=== PATIENT | female | born 1965 | race Two or more races ===

== ENCOUNTER 2024-05-06 18:17 | Emergency (ER) | payer MEDICAID, SELFPAY ==
[2024-05-06 18:24] VITALS: BMI 35.4
[2024-05-06 18:25] VITALS: BP 140/89; PULSE 93; RESP 16; TEMP 37.2; O2SAT 97
--- NOTE | 2024-05-06 18:29 | XR_ITS ---
Examination: CT abdomen and pelvis without contrast. Coronal 3-D reconstructions. Sagittal 2-D reconstructions. Date and time of exam:May 06, 20242012 hrs. Comparison March 25, 2024 Indications: Upper abdominal pain nausea vomiting beginning one week ago CTDI: vol (mGy): 11.6 DLP: (mGycm): 617 Technique: Axial images of the abdomen have been obtained, 3 mm slice thickness Intravenous contrast material has not been administered. Low dose protocols were performed. One or more of the following dose reduction techniques were used; automated exposure control, adjustment of the mA and/or KV according to patient size, use of iterative reconstruction technique. 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
--- NOTE | 2024-05-06 18:29 | XR_ITS ---
Examination: Abdomen sonogram, Limited Date and time of exam: May 06, 2024 1905 hrs. Indications: Right upper abdominal tenderness and vomiting beginning one week ago Technique: Real-time ayala scale transabdominal sonographic images of the upper abdomen obtained. Findings: Negative for gallstones Normal gallbladder wall Normal common bile duct 0.3 cm Pancreatic head 2.4 cm Liver 14.3 cm fatty infiltration no focal liver lesions Normal hepatopedal portal venous flow Patent IVC Impression: Normal gallbladder Liver normal size with fatty infiltration
[2024-05-06 18:33] VITALS: PULSE 92; O2SAT 97
--- NOTE | 2024-05-06 19:28 | XR_ITS ---
Examination: Transvaginal ultrasound of the pelvis, complete Technique: Transvaginal sonographic images pelvis performed using ayala scale imaging Exam date and time: May 06, 2024 1945 hrs. Indications: Right upper abdominal pain with nausea beginning this week Findings: Patient refused transvaginal examination Impression: Patient refused transvaginal examination.
[2024-05-06 19:40] LABS: Basophils # (Auto) 0.1 Thou/mm3 (0.0-0.2); Basophils % (Auto) 1 % (0-2.5); Eosinophils # (Auto) 0.2 Thou/mm3 (0.0-0.5); Eosinophils % (Auto) 3 % (0-10); Hematocrit 42.6 % (36.0-46.0); Hemoglobin 14.5 g/dL (12.0-16.0); Immature Granulocytes % (Auto) 0 % (0-0); Immature Granulocytes Auto 0.03 Thou/mm3 (0.00-0.00); Lymphocytes # (Auto) 1.5 Thou/mm3 (1.0-4.8); Lymphocytes % (Auto) 21 % (10-50); Mean Corpuscular Hemoglobin 28.8 pg (25.0-35.0); Mean Corpuscular Volume 85 fL (80-100); Monocytes # (Auto) 1.1 Thou/mm3 (0.0-0.8); Monocytes % (Auto) 15 % (0-12); Neutrophils # (Auto) 4.4 Thou/mm3 (1.8-7.7); Neutrophils % (Auto) 60 % (37-80); Nucleated Red Blood Cell % 0 /100 WBC (0); Platelet Count 280 Thou/mm3 (140-440); RDW Standard Deviation 52.3 fL (36.4-46.3); Red Blood Count 5.04 Miln/mm3 (4.00-5.20); White Blood Count 7.4 Thou/mm3 (3.6-11.0)
--- NOTE | 2024-05-06 19:58 | XR_ITS ---
Examination: Pelvic ultrasound, transabdominal, complete Technique: Transabdominal ultrasound of the pelvis performed using grayscale imaging Date and time of exam: May 06, 2024 0745 hours INDICATIONS: Right upper abdominal pain nausea beginning one week ago FINDINGS: No diagnostic visualization uterus Hyperechoic mass noted avascular in the region of uterus 6.0 x 6.2 x 6.4 cm Ovaries obscured by bowel gas IMPRESSION: Nondiagnostic study Recommend transvaginal pelvic sonography follow-up
[2024-05-06 20:04] LABS: Alanine Aminotransferase 13 U/L (10-49); Albumin, Serum 3.7 gm/dL (3.5-5.0); Albumin/Globulin Ratio 1.1 (1.2-2.2); Alkaline Phosphatase 59 U/L (46-116); Amylase 46 U/L (30-118); Anion Gap 18 (7-16); Aspartate Amino Transferase 38 U/L (0-34); BUN/Creatinine Ratio 6 Ratio (12-20); Bilirubin,Total 1.2 mg/dL (0.3-1.2); Blood Urea Nitrogen < 5 mg/dL (9-23); Calcium 10.2 mg/dL (8.3-10.6); Calcium (Corrected) 10.4 mg/dL (8.5-10.1); Carbon Dioxide 19.3 mMol/L (20.0-31.0); Chloride 100 mMol/L (98-107); Creatinine (Component) 0.8 mg/dL (0.6-1.3); Estimated Creatinine Clearance 87.1 mL/min (>60); Globulin 3.4 gm/dL (2.3-3.5); Glucose 103 mg/dL (74-106); Lipase 65 U/L (12-53); Magnesium 1.8 mg/dL (1.6-2.6); Osmolality,Calculated 271 (275-295); Sodium 137 mMol/L (136-145); Total Protein 7.1 gm/dL (5.7-8.2); eGFR > 60 See Note
[2024-05-06 20:06] LABS: Potassium 2.7 mMol/L (3.4-5.1)
[2024-05-06] MEDS: SODIUM CHLORIDE 0.9% 1000 ML 1,000 ML 999 ML IV (20:42)
[2024-05-06] MEDS: MORPHINE SULF INJ 10 MG/ML VIAL 4 MG IVP (20:43)
[2024-05-06] MEDS: ONDANSETRON INJ 2 MG/ML INJ 2 ML 4 MG IV (20:44)
[2024-05-06 21:07] LABS: Collection Type, Urine Clean Catch
[2024-05-06 21:21] LABS: Bacteria,Urine 3+; Bilirubin,Urine 1+ (Negative); Blood,Urine Trace (Negative); Clarity,Urine Turbid (Clear/Hazy); Color,Urine Yellow (Lt Yel-Yel); Glucose, Urine Trace (Negative); Hyaline Casts,Urine 2 /hpf (0-1); Ketones,Urine 4+ (Negative); Leukocyte Esterase,Urine Positive (Negative); Nitrite,Urine Negative (Negative); Protein,Urine 2+ (Neg - Trace); RBC,Urine 5 /hpf (0-3); Specific Gravity,Urine 1.023 (1.001-1.035); Squamous Epithelial Cell,Urine 34 /hpf (0-5); WBC,Urine 38 /hpf (0-5)
--- NOTE | 2024-05-06 22:22 | PD.EDNV ---
Nausea/Vomit./Diarrhea-RME/HPI General Chief complaint: Nausea/Vomiting/Diarrhea Stated complaint: NAUSEA Time Seen by Provider: 05/06/24 18:25 Arrival date/time: 05/06/24 18:17 RME / HPI RME / HPI Narrative: This section includes all my notes and documentations, including HPI, PE, and ED course. Gael Patterson MD HPI: 59-year-old female here to be evaluated with about a week history of nausea and vomiting. She reports no abdominal pain. No fever or chills. No urinary symptoms. No other complaints. ROS: Gastrointestinal: negative except as documented in HPI. Genitourinary: negative except as documented in HPI. Musculoskeletal: negative except as documented in HPI. Skin: negative except as documented in HPI. Neurological: negative except as documented in HPI. Physical Exam: General: Alert and oriented. No acute distress when remaining still. Eyes: Conjunctivae and lids clear. ENT: No nasal congestion. Neck: Supple. Heart: RRR. Lungs: No respiratory distress. Good air movement. No rhonchi, wheezing, rales. Abdomen: Soft with mild epigastric tenderness. Normal bowel sounds. No distension. No rebound or guarding. Back: No CVA tenderness. Skin: Warm and dry. Neuro: Alert and oriented X 3. I reviewed EMS notes. I reviewed all diagnostic test results. My review of the abdominal CT report is no acute findings. My review of the GB ultrasound report is no acute findings. Blood tests and urine tests are unremarkable, except for hypokalemia and UTI. At this point, diagnoses include chronic nausea and vomiting and UTI and hypokalemia. Treatment here included IV fluid and Zofran and morphine and oral KCl and Rocephin. Recommended a trial of treatment at home and more outpatient workup. Based on my best medical judgment, made decision no further evaluation or treatment indicated at this time. Patient understands and agrees to the discharge instructions customized and printed, see below. Discharge instructions from Dr. Patterson: 1. After evaluation, you have UTI (see attached handout).? 2. Take cefdinir to kill the germs causing the infection.? Increase oral fluid to flush it out.? Maintain clear urine.? If dark or yellow, increase oral fluid. 3. Zofran for nausea/vomiting.? And Tylenol with codeine for severe pain. 4. See a private doctor on 05/10/2024 for recheck.? Ask to review all test results and official radiology reports, to make sure you receive all necessary follow-ups and monitoring, including final urine culture results and potassium level. To make sure there is no serious intra-abdominal condition (with your chronic nausea and vomiting), ask for help with more investigation not available here in the ER. Such as EGD or scoping the stomach, colonoscopy or scoping the colon, and referral to see computer systems consultant. 5. Seek immediate medical care with worsening, fever, or with any concerns. Gael Patterson MD Related Data Home Medications ?Medication ?Instructions ?Recorded ?Confirmed hydrochlorothiazide 25 mg tablet 25 mg PO QAM 03/25/24 04/18/24 levothyroxine 125 mcg tablet 125 mcg PO QDAY 03/25/24 04/18/24 lovastatin 40 mg tablet 40 mg PO QDAY 03/25/24 04/18/24 Previous Rx's ?Medication ?Instructions ?Recorded alcohol swabs (Alcohol Prep Pads) See Rx Instructions .Route 03/31/24 .COMPLEX #200 ea erythromycin ethylsuccinate 400 400 mg (5 mL) PO TID #100 mL 03/31/24 mg/5 mL oral powder for suspension insulin glargine 100 unit/mL (3 5 unit (0.05 mL) subcut QDAY #15 mL 03/31/24 mL) subcutaneous pen, sensor lancets 28 gauge #100 ea 03/31/24 blood sugar diagnostic (FreeStyle #100 ea 04/02/24 Lite Strips) blood-glucose meter (FreeStyle #1 ea 04/02/24 Lite Meter kit) lancets 28 gauge (FreeStyle #100 ea 04/02/24 Lancets) pen needle, diabetic 29 gauge x #100 ea 04/02/24 1/2 (Ultra-Thin II Insulin Pen [place]) ondansetron 4 mg disintegrating 4 mg PO Q6H nausea / vomiting #60 04/04/24 tablet tabs scopolamine base 1 mg over 3 days 1 patch transdermal Q3D PRN nausea 04/09/24 transdermal patch #4 ea metoclopramide HCl 5 mg/5 mL oral 10 mg (10 mL) PO Q6H PRN nausea 04/11/24 solution and vomiting #473 mL sucralfate 100 mg/mL oral 10 ml PO BID #300 mL 04/11/24 suspension (Carafate) promethazine 25 mg rectal 25 mg ID Q6H PRN nausea and 04/18/24 suppository vomiting #12 ea acetaminophen 300 mg-codeine 30 mg 2 tab PO TID PRN pain #20 tabs 05/06/24 tablet cefdinir 300 mg capsule 300 mg PO BID #14 caps 05/06/24 ondansetron 4 mg disintegrating 4 mg PO TID PRN nausea and 05/06/24 tablet vomiting 5 days #10 tabs Allergies Allergy/AdvReac Type Severity Reaction Status Date / Time No Known Allergies Allergy Verified 04/18/24 09:52 Course Quality Measures none Orders Category Date Time Status Bedside COVID-19 Antigen Test NOW Care 05/06/24 18:28 Active Bedside Influenza A&B Antigen Test NOW Care 05/06/24 18:28 Completed Saline [Insert IV] NOW Care 05/06/24 18:28 Active Straight [In and Out Catheter] X1 Care 05/06/24 18:[address] abdomen pelvis wo con Stat Exams 05/06/24 18:29 Completed US gall bladder Stat Exams 05/06/24 18:29 Completed US pelvic complete Stat Exams 05/06/24 19:58 Taken US transvaginal Stat Exams 05/06/24 19:28 Taken Amylase Stat Lab 05/06/24 19:00 Completed CBC Stat Lab 05/06/24 19:00 Completed CMP [Comprehensive Metabolic Panel] Stat Lab 05/06/24 19:00 Completed Lipase Stat Lab 05/06/24 19:00 Completed Magnesium Stat Lab 05/06/24 19:00 Completed UA [Urinalysis] Stat Lab 05/06/24 20:33 Completed Urine Culture Stat Lab 05/06/24 22:17 Ordered KCL 10% Liq UDC 15 ML Med 05/06/24 21:06 Discontinued 40 meq PO X1 ONE Morphine Inj Med 05/06/24 18:28 Discontinued 4 mg IVP X1 ONE Ondansetron Inj [Zofran Inj] Med 05/06/24 18:28 Discontinued 4 mg IV X1 ONE Sodium Chloride 0.9% 1000 ml [Ns] 1,000 ml Med 05/06/24 18:28 Discontinued IV 999 mls/hr cefTRIAXone/D5w 1gm IV premix [Rocephin/D5w 1gm IV Med 05/06/24 22:14 Active premix] 50 ml IV X1 Vital Signs Vital signs: Vital Signs Temperature 99.0 F 05/06/24 18:25 Pulse Rate 93 05/06/24 18:25 Respiratory Rate 16 05/06/24 18:25 Blood Pressure 140/89 H 05/06/24 18:25 Pulse Oximetry (%) 97 05/06/24 18:25 Oxygen Delivery Method Room Air 05/06/24 18:25 Nausea/Vomiting/Diarrhea Patient data External records reviewed:: [facility] previous records Clinical information provided by:: patient and EMS Social determinants that could affect healthcare access:: none Patient has the following chronic illnesses:: See chart How is presenting disease/condition affected by chronic disease/condition?: exacerbated by Evaluation data The following diagnostics were reviewed and interpreted by me:: lab results and radiology exam(s) Lab and/or radiology exams considered but not ordered:: None Interpretation Summary: Chronic nausea and vomiting and UTI and hypokalemia Medications / Prescriptions Medications / Prescriptions considered but not ordered:: None Medication administrations:: Medication Administration History Ceftriaxone Sodium/Dextrose (Rocephin/D5w 1gm Iv Premix) 50 mls @ 100 mls/hr IV X1 ONE Stop: 05/06/24 22:43 Discontinued Medications Sodium Chloride (Ns) 1,000 mls @ 999 mls/hr IV .Q1H1M ONE Stop: 05/06/24 19:28 Last Admin: 05/06/24 20:42 Dose: 999 mls/hr Documented By: EE Morphine Sulfate (Morphine Sulf Inj 10 Mg/Ml Vial) 4 mg IVP X1 ONE Stop: 05/06/24 18:29 Last Admin: 05/06/24 20:43 Dose: 4 mg Documented By: EE Ondansetron HCl (Ondansetron Inj 2 Mg/Ml Inj 2 Ml) 4 mg IV X1 ONE; Protocol Stop: 05/06/24 18:29 Last Admin: 05/06/24 20:44 Dose: 4 mg Documented By: EE Potassium Chloride (Potassium Chloride 10% 20 Meq/15 Ml Udc) 40 meq PO X1 ONE Stop: 05/06/24 21:07 See chart Consultations Consultation(s) initiated? (list below): No Diagnosis Nausea Differential Diagnosis: traveler's diarrhea, food poisoning, gastroenteritis, drug-induced nausea and vomiting and dehydration Most likely diagnosis given after review of the tests above:: UTI and hypokalemia Admission Indicated Admission indicated?: not indicated Explain why admission is indicated or not indicated:: Admission criteria not met Admission Request Was there a request for admission?: No Disposition Plan Disposition Plan: Discharge Discharge Attestation Discharge Attestation: The patient and all family members were given an opportunity to ask questions and understood the discharge instructions. Discharge instructions specifically effects, indications for sooner follow up or return to the emergency department, and the expected course of current diagnosis. Patient condition: Stable Discharge Plan Plan Patient Disposition: HOME (Self Care) Prescriptions/Referrals Prescriptions/Med Rec: New acetaminophen-codeine 300-30 mg tablet 2 tab PO TID MDD 6 PRN (Reason: pain) Qty: 20 0RF ondansetron 4 mg tablet,disintegrating 4 mg PO TID PRN (Reason: nausea and vomiting) 5 Days Qty: 10 0RF cefdinir 300 mg capsule 300 mg PO BID Qty: 14 0RF No Action promethazine 25 mg suppository 25 mg ID Q6H PRN (Reason: nausea and vomiting) Qty: 12 2RF ondansetron 4 mg tablet,disintegrating 4 mg PO Q6H Qty: 60 5RF (DME) blood-glucose meter [FreeStyle Lite Meter] Kit See Rx Instructions .Route Qty: 1 0RF Rx Instructions: As directed (DME) lancets [FreeStyle Lancets] 28 gauge misc See Rx Instructions .Route Qty: 100 0RF Rx Instructions: As directed (DME) FreeStyle Lite Strips Strip See Rx Instructions .Route Qty: 100 0RF Rx Instructions: As directed (DME) pen needle, diabetic [Ultra-Thin II Ins Pen [place]] 29 gauge x 1/2 needle See Rx Instructions .Route Qty: 100 0RF Rx Instructions: As directed scopolamine base 1 mg over 3 days patch 3 day 1 patch transdermal Q3D PRN (Reason: nausea) Qty: 4 0RF Rx Instructions: May causes sedation, Avoid driving or other activities requiring alertness. lovastatin 40 mg Tablet 40 mg PO QDAY levothyroxine 125 mcg Tablet 125 mcg PO QDAY hydrochlorothiazide 25 mg Tablet 25 mg PO QAM erythromycin ethylsuccinate 400 mg/5 mL suspension for reconstitution 400 mg PO TID Qty: 100 0RF insulin glargine 100 unit/mL (3 mL) insulin pen, sensor 5 unit subcut QDAY Qty: 15 0RF alcohol swabs [Alcohol Prep Pads] Pads, Medicated See Rx Instructions .ROUTE .COMPLEX Qty: 200 0RF Rx Instructions: Apply before injections or glucose check. (DME) lancets 28 gauge misc See Rx Instructions .Route Qty: 100 0RF Rx Instructions: As directed metoclopramide HCl 5 mg/5 mL solution 10 mg PO Q6H PRN (Reason: nausea and vomiting) Qty: 473 0RF sucralfate [Carafate] 100 mg/mL suspension 10 ml PO BID Qty: 300 0RF Referrals: No Primary/Family,Physician [Primary Care Provider] - In 1 week Problem List Clinical Impression: UTI (urinary tract infection), Nausea and vomiting Patient/Caregiver Discharge Instructions Discharge Activity: activity as tolerated Education Materials: Urinary Tract Infections in Women, ED Vomiting (Adult) Additional Instructions: Discharge instructions from Dr. Patterson: 1. After evaluation, you have UTI (see attached handout).? 2. Take cefdinir to kill the germs causing the infection.? Increase oral fluid to flush it out.? Maintain clear urine.? If dark or yellow, increase oral fluid. 3. Zofran for nausea/vomiting.? And Tylenol with codeine for severe pain. 4. See a private doctor on 05/10/2024 for recheck.? Ask to review all test results and official radiology reports, to make sure you receive all necessary follow-ups and monitoring, including final urine culture results and potassium level. To make sure there is no serious intra-abdominal condition (with your chronic nausea and vomiting), ask for help with more investigation not available here in the ER. Such as EGD or scoping the stomach, colonoscopy or scoping the colon, and referral to see computer systems consultant. 5. Seek immediate medical care with worsening, fever, or with any concerns. Print Language: [place] Stand Alone Forms: [employer]ie Award Info., Patient Portal Info Letter
[2024-05-06] MEDS: cefTRIAXone/D5w 1gm IV premix 50 ML IV (22:29)
--- NOTE | 2024-05-06 22:33 | PC.NURSE ---
Attempted PO Potassium, Patient emesis x1 when drinking medication. Provider notified.
[2024-05-06] MEDS: METOCLOPRAMIDE INJ 5 MG/ML VIAL 2 ML 10 MG IVP (22:42)
[2024-05-06 23:42] LABS: Potassium 2.9 mMol/L (3.4-5.1)
[2024-05-06] MEDS: LORazepam 2 MG/ML VIAL 0.5 MG IVP (23:57)
[2024-05-06] MEDS: POTASSIUM CHLORIDE 10% 20 MEQ/15 ML UDC 40 MEQ PO (23:59)
== END 2024-05-07 01:03 | disposition home or self-care (01) ==
PROVIDERS: Emergency Provider Emergency Medicine
DX: N39.0 Urinary tract infection, site not specified (principal); E87.6 Hypokalemia; R11.2 Nausea with vomiting, unspecified
CPT/HCPCS: 36415; 74176; 76705; 76830; 76856; 80053; 81001; 82150; 83690; 83735; 84132; 85025; 87086; 87400; 87811; 96361; 96365; 96375; 99284; J0696; J2060; J2270; J2405; J2765; J7030; A9270

== ENCOUNTER 2024-05-14 16:46 | Inpatient (IN) | payer MEDICAID, SELFPAY ==
[2024-05-14 16:47] VITALS: BP 122/81; PULSE 84; RESP 18; TEMP 36.6; O2SAT 99
[2024-05-14 17:06] VITALS: O2SAT 98
--- NOTE | 2024-05-14 17:31 | PD.EDRME ---
Rapid Medical Screening Exam RME Arrival date/time: 05/14/24 16:46 59-year-old female presents emergency department complains of nausea vomiting abdominal pain Chief Complaint: Nausea/Vomiting/Diarrhea Vital signs: Vital Signs Temperature 97.9 F 05/14/24 16:47 Pulse Rate 84 05/14/24 16:47 Respiratory Rate 18 05/14/24 16:47 Blood Pressure 122/81 05/14/24 16:47 Pulse Oximetry (%) 99 05/14/24 16:47 Oxygen Delivery Method Room Air 05/14/24 16:47
--- NOTE | 2024-05-14 17:44 | PC.NURSE ---
FSBS 110
[2024-05-14 17:59] LABS: Base Excess, Venous -5 (-3-3); O2 Saturation, Venous 76 % (96-97); PCO2, Venous 21 mmHg (36-56); PO2, Venous 35 mmHg (15-58); pH, Venous 7.49 (7.33-7.66)
[2024-05-14 18:04] LABS: Basophils # (Auto) 0.1 Thou/mm3 (0.0-0.2); Basophils % (Auto) 1 % (0-2.5); Eosinophils # (Auto) 0.3 Thou/mm3 (0.0-0.5); Eosinophils % (Auto) 4 % (0-10); Hemoglobin 14.1 g/dL (12.0-16.0); Immature Granulocytes % (Auto) 0 % (0-0); Immature Granulocytes Auto 0.03 Thou/mm3 (0.00-0.00); Lymphocytes # (Auto) 1.4 Thou/mm3 (1.0-4.8); Lymphocytes % (Auto) 21 % (10-50); Mean Corpuscular HGB Conc 33.6 g/dl (31.0-37.0); Mean Corpuscular Hemoglobin 28.7 pg (25.0-35.0); Mean Corpuscular Volume 86 fL (80-100); Monocytes # (Auto) 1.1 Thou/mm3 (0.0-0.8); Monocytes % (Auto) 17 % (0-12); Neutrophils # (Auto) 3.9 Thou/mm3 (1.8-7.7); Neutrophils % (Auto) 58 % (37-80); Nucleated Red Blood Cell % 0 /100 WBC (0); Platelet Count 284 Thou/mm3 (140-440); RDW Standard Deviation 53.2 fL (36.4-46.3); Red Blood Count 4.91 Miln/mm3 (4.00-5.20); White Blood Count 6.8 Thou/mm3 (3.6-11.0)
[2024-05-14 18:06] LABS: Beta Hydroxybutyrate 4.6 mmol/L (<0.6)
[2024-05-14 18:24] LABS: Glucose Estimated Average 148 mg/dL (80-131); Hemoglobin A1C 6.8 % Hgb (4.8-6.0)
[2024-05-14 18:38] LABS: Alanine Aminotransferase 14 U/L (10-49); Albumin, Serum 3.9 gm/dL (3.5-5.0); Albumin/Globulin Ratio 1.2 (1.2-2.2); Alkaline Phosphatase 56 U/L (46-116); Anion Gap 18 (7-16); Aspartate Amino Transferase 32 U/L (0-34); BUN/Creatinine Ratio 6 Ratio (12-20); Blood Urea Nitrogen 5 mg/dL (9-23); Calcium 10.1 mg/dL (8.3-10.6); Calcium (Corrected) 10.2 mg/dL (8.5-10.1); Carbon Dioxide 18.2 mMol/L (20.0-31.0); Chloride 99 mMol/L (98-107); Creatinine (Component) 0.9 mg/dL (0.6-1.3); Globulin 3.2 gm/dL (2.3-3.5); Glucose 104 mg/dL (74-106); Lipase 71 U/L (12-53); Osmolality,Calculated 267 (275-295); Sodium 135 mMol/L (136-145); Total Protein 7.1 gm/dL (5.7-8.2); eGFR > 60 See Note
[2024-05-14 18:41] LABS: Potassium 2.5 mMol/L (3.4-5.1)
[2024-05-14 19:01] VITALS: BP 155/99; PULSE 97; RESP 18; TEMP 36.7; O2SAT 98
[2024-05-14 19:05] VITALS: BMI 35.4
[2024-05-14] MEDS: SODIUM CHLORIDE 0.9% 1000 ML 1,000 ML 999 ML IV (19:17)
[2024-05-14] MEDS: ONDANSETRON INJ 2 MG/ML INJ 2 ML 4 MG IV (19:17)
--- NOTE | 2024-05-14 20:15 | PD.EDNV ---
Nausea/Vomit./Diarrhea-RME/HPI General Chief complaint: Nausea/Vomiting/Diarrhea Stated complaint: N/V Time Seen by Provider: 05/14/24 19:27 Arrival date/time: 05/14/24 16:46 RME / HPI RME / HPI Narrative: 05/14/24 16:46 59-year-old female presents emergency department complains of nausea vomiting abdominal pain. 59-year-old female with history of diabetes, gastritis coming in with dysuria, nausea, and inability to tolerate liquids. The patient states that since she left the hospital she has not been able to keep things down. The patient states that she is having some right flank pain. Related Data Home Medications ?Medication ?Instructions ?Recorded ?Confirmed hydrochlorothiazide 25 mg tablet 25 mg PO QAM 03/25/24 04/18/24 levothyroxine 125 mcg tablet 125 mcg PO QDAY 03/25/24 04/18/24 lovastatin 40 mg tablet 40 mg PO QDAY 03/25/24 04/18/24 Previous Rx's ?Medication ?Instructions ?Recorded alcohol swabs (Alcohol Prep Pads) See Rx Instructions .Route 03/31/24 .COMPLEX #200 ea erythromycin ethylsuccinate 400 400 mg (5 mL) PO TID #100 mL 03/31/24 mg/5 mL oral powder for suspension insulin glargine 100 unit/mL (3 5 unit (0.05 mL) subcut QDAY #15 mL 03/31/24 mL) subcutaneous pen, sensor lancets 28 gauge #100 ea 03/31/24 blood sugar diagnostic (FreeStyle #100 ea 04/02/24 Lite Strips) blood-glucose meter (FreeStyle #1 ea 04/02/24 Lite Meter kit) lancets 28 gauge (FreeStyle #100 ea 04/02/24 Lancets) pen needle, diabetic 29 gauge x #100 ea 04/02/24 1/2 (Ultra-Thin II Insulin Pen [place]) ondansetron 4 mg disintegrating 4 mg PO Q6H nausea / vomiting #60 04/04/24 tablet tabs scopolamine base 1 mg over 3 days 1 patch transdermal Q3D PRN nausea 04/09/24 transdermal patch #4 ea metoclopramide HCl 5 mg/5 mL oral 10 mg (10 mL) PO Q6H PRN nausea 10/31/24 solution and vomiting #473 mL sucralfate 100 mg/mL oral 10 ml PO BID #300 mL 04/11/24 suspension (Carafate) promethazine 25 mg rectal 25 mg MT Q6H PRN nausea and 04/18/24 suppository vomiting #12 ea acetaminophen 300 mg-codeine 30 mg 2 tab PO TID PRN pain #20 tabs 05/06/24 tablet cefdinir 300 mg capsule 300 mg PO BID #14 caps 05/06/24 potassium chloride 20 mEq 20 meq PO QDAY #7 tabs 05/07/24 tablet,extended release Allergies Allergy/AdvReac Type Severity Reaction Status Date / Time No Known Allergies Allergy Verified 05/14/24 17:08 Course Orders Category Date Time Status Bedside Blood Glucose NOW Care 05/14/24 17:30 Active Bedside COVID-19 Antigen Test NOW Care 05/14/24 17:30 Active Bedside Influenza A&B Antigen Test NOW Care 05/14/24 17:30 Completed A1C [Glycohemoglobin w (eAG)] Stat Lab 05/14/24 17:25 Completed Beta Hydroxybutyrate Stat Lab 05/14/24 17:25 Completed CBC Stat Lab 05/14/24 17:25 Completed Comprehensive Metabolic Panel Stat Lab 05/14/24 17:25 Completed HCG Qualitative,Urine Stat Lab 05/14/24 17:30 Ordered Lipase Stat Lab 05/14/24 17:25 Completed UA, C/S IF [Urinalysis, C/S if Indicated] Stat Lab 05/14/24 17:30 Ordered VBG [Venous Blood Gas] Stat Lab 05/14/24 17:25 Completed Ondansetron Inj [Zofran Inj] Med 05/14/24 17:31 Discontinued 4 mg IV X1 ONE Sodium Chloride 0.9% 1000 ml [Ns] 1,000 ml Med 05/14/24 17:31 Discontinued IV 999 mls/hr Sodium Chloride 0.9% 1000 ml [Ns] 1,710 ml Med 05/14/24 20:14 Active IV 1,710 mls/hr Vital Signs Vital signs: Vital Signs Temperature 97.9 F 05/14/24 16:47 Pulse Rate 84 05/14/24 16:47 Respiratory Rate 18 05/14/24 16:47 Blood Pressure 122/81 05/14/24 16:47 Pulse Oximetry (%) 99 05/14/24 16:47 Oxygen Delivery Method Room Air 05/14/24 16:47 Nausea/Vomiting/Diarrhea MDM Narrative MDM Narrative:: Differential diagnosis includes pancreatitis, gastritis, acute renal failure, GI bleed, gastroparesis, dehydration. 59-year-old female coming into the emergency department with dehydration and low potassium likely secondary to dry heaving, patient is not in DKA however she does have elevated beta hydroxybutyrate. Medications / Prescriptions Medication administrations:: Medication Administration History Sodium Chloride (Ns) 1,710 mls @ 1,710 mls/hr 30 ml/kg infuse over 60 min (1710 ml) IV .Q1H ONE Stop: 05/14/24 21:13 Discontinued Medications Sodium Chloride (Ns) 1,000 mls @ 999 mls/hr IV .Q1H1M ONE Stop: 05/14/24 18:31 Last Admin: 05/14/24 19:17 Dose: 999 mls/hr Documented By: KERRY Ondansetron HCl (Ondansetron Inj 2 Mg/Ml Inj 2 Ml) 4 mg IV X1 ONE; Protocol Stop: 05/14/24 17:32 Last Admin: 05/14/24 19:17 Dose: 4 mg Documented By: KERRY Discharge Plan Prescriptions/Referrals Prescriptions/Med Rec: No Action promethazine 25 mg suppository 25 mg MT Q6H PRN (Reason: nausea and vomiting) Qty: 12 2RF ondansetron 4 mg tablet,disintegrating 4 mg PO Q6H Qty: 60 5RF (DME) blood-glucose meter [FreeStyle Lite Meter] Kit See Rx Instructions .Route Qty: 1 0RF Rx Instructions: As directed (DME) lancets [FreeStyle Lancets] 28 gauge misc See Rx Instructions .Route Qty: 100 0RF Rx Instructions: As directed (DME) FreeStyle Lite Strips Strip See Rx Instructions .Route Qty: 100 0RF Rx Instructions: As directed (DME) pen needle, diabetic [Ultra-Thin II Ins Pen [place]] 29 gauge x 1/2 needle See Rx Instructions .Route Qty: 100 0RF Rx Instructions: As directed scopolamine base 1 mg over 3 days patch 3 day 1 patch transdermal Q3D PRN (Reason: nausea) Qty: 4 0RF Rx Instructions: May causes sedation, Avoid driving or other activities requiring alertness. lovastatin 40 mg Tablet 40 mg PO QDAY levothyroxine 125 mcg Tablet 125 mcg PO QDAY hydrochlorothiazide 25 mg Tablet 25 mg PO QAM erythromycin ethylsuccinate 400 mg/5 mL suspension for reconstitution 400 mg PO TID Qty: 100 0RF insulin glargine 100 unit/mL (3 mL) insulin pen, sensor 5 unit subcut QDAY Qty: 15 0RF alcohol swabs [Alcohol Prep Pads] Pads, Medicated See Rx Instructions .ROUTE .COMPLEX Qty: 200 0RF Rx Instructions: Apply before injections or glucose check. (DME) lancets 28 gauge misc See Rx Instructions .Route Qty: 100 0RF Rx Instructions: As directed metoclopramide HCl 5 mg/5 mL solution 10 mg PO Q6H PRN (Reason: nausea and vomiting) Qty: 473 0RF sucralfate [Carafate] 100 mg/mL suspension 10 ml PO BID Qty: 300 0RF acetaminophen-codeine 300-30 mg tablet 2 tab PO TID MDD 6 PRN (Reason: pain) Qty: 20 0RF cefdinir 300 mg capsule 300 mg PO BID Qty: 14 0RF potassium chloride 20 mEq tablet extended release 20 meq PO QDAY Qty: 7 0RF Referrals: No Primary/Family,Physician [Primary Care Provider] - In 1 week Patient/Caregiver Discharge Instructions Print Language: [place] Citizen
--- NOTE | 2024-05-14 20:19 | EDNOTE_ITS ---
Nausea/Vomit./Diarrhea-RME/HPI General Chief complaint: Nausea/Vomiting/Diarrhea Stated complaint: N/V Time Seen by Provider: 05/14/24 19:27 Arrival date/time: 05/14/24 16:46 Limitations: no limitations RME / HPI RME / HPI Narrative: DR. CHOI MAIN ED EVALUATION: 59 year old female presents to the Emergency Department with complaints of dysuria, nausea, and inability to tolerate liquids. The patient states that since she left the hospital she has not been able to keep things down. The patient states that she is having some right flank pain. PMHx: Gastritis, hypertension, hypercholesterolemia, diabetes, hypothyroidism, and arthritis. Social Hx: No tobacco, alcohol, or substance use. Related Data Home Medications ?Medication ?Instructions ?Recorded ?Confirmed hydrochlorothiazide 25 mg tablet 25 mg PO QAM 03/25/24 04/18/24 levothyroxine 125 mcg tablet 125 mcg PO QDAY 03/25/24 04/18/24 lovastatin 40 mg tablet 40 mg PO QDAY 03/25/24 04/18/24 Previous Rx's ?Medication ?Instructions ?Recorded alcohol swabs (Alcohol Prep Pads) See Rx Instructions .Route 03/31/24 .COMPLEX #200 ea erythromycin ethylsuccinate 400 400 mg (5 mL) PO TID #100 mL 03/31/24 mg/5 mL oral powder for suspension insulin glargine 100 unit/mL (3 5 unit (0.05 mL) subcut QDAY #15 mL 03/31/24 mL) subcutaneous pen, sensor lancets 28 gauge #100 ea 03/31/24 blood sugar diagnostic (FreeStyle #100 ea 04/02/24 Lite Strips) blood-glucose meter (FreeStyle #1 ea 04/02/24 Lite Meter kit) lancets 28 gauge (FreeStyle #100 ea 04/02/24 Lancets) pen needle, diabetic 29 gauge x #100 ea 04/02/24 1/2 (Ultra-Thin II Insulin Pen Distant) ondansetron 4 mg disintegrating 4 mg PO Q6H nausea / vomiting #60 04/04/24 tablet tabs scopolamine base 1 mg over 3 days 1 patch transdermal Q3D PRN nausea 04/09/24 transdermal patch #4 ea metoclopramide HCl 5 mg/5 mL oral 10 mg (10 mL) PO Q6H PRN nausea 04/11/24 solution and vomiting #473 mL sucralfate 100 mg/mL oral 10 ml PO BID #300 mL 04/11/24 suspension (Carafate) promethazine 25 mg rectal 25 mg [place] Q6H PRN nausea and 04/18/24 suppository vomiting #12 ea acetaminophen 300 mg-codeine 30 mg 2 tab PO TID PRN pain #20 tabs 05/06/24 tablet cefdinir 300 mg capsule 300 mg PO BID #14 caps 05/06/24 potassium chloride 20 mEq 20 meq PO QDAY #7 tabs 05/07/24 tablet,extended release Allergies Allergy/AdvReac Type Severity Reaction Status Date / Time No Known Allergies Allergy Verified 05/14/24 17:08 Review of Systems Review of Systems Systems Reviewed: All systems reviewed, normal except as documented Narrative Review of Systems: GEN: No fever, no chills, no weight loss, + inability to tolerate liquids EYES: No discharge, no visual changes, no pain HEENT: No ear pain, no congestion, no sore throat PULM: No shortness of breath, no cough, no congestion CV: No chest pain, no dyspnea on exertion, no palpitations GI: + nausea, no vomiting, no diarrhea, + right flank pain, no constipation : + dysuria MUSC/SKEL: No joint pain, no back pain SKIN: No rash PSYCH: No hallucinations, no depression HEME/LYMPH: No easy bleeding or bruising tendencies NEURO: No weakness, no headache Past Medical History Past Medical History CARDIAC: Positive Hypercholesterolemia and Hypertension MUSCULOSKELETAL: Positive Rheumatoid Arthritis ENDOCRINE: Positive Diabetes Mellitus Type 2 and Hypothyroidism HEMATOLOGIC: Positive Anemia Social History SMOKING STATUS: Never smoker SUBSTANCE USE: does not use ALCOHOL: Never ED Exam General Limitations: Present no limitations General appearance: Present alert and in no apparent distress Head Head exam: Present atraumatic, normocephalic and normal inspection Eye Eye exam: Present normal appearance, PERRL and EOMI ENT ENT exam: Present normal exam, normal oropharynx and mucous membranes moist Neck Neck exam: Present normal inspection, full ROM and trachea midline Chest Chest inspection: Present normal inspection and symmetric chest wall rise Respiratory Respiratory exam: Present normal lung sounds bilaterally Cardiovascular Cardiovascular exam: Present regular rate, normal rhythm and normal heart sounds Abdominal Exam Abdominal exam: Present soft and normal bowel sounds Extremities Exam Extremities exam: Present normal inspection and full ROM Back Exam Back exam: Present normal inspection and full ROM Neurological Exam Neurological exam: Present alert, oriented X3 and CN II-XII intact Psychiatric Psychiatric exam: Present normal affect and normal mood Skin Skin exam: Present warm, dry, intact and normal color Course Quality Measures none Orders Category Date Time Status Bedside Blood Glucose NOW Care 05/14/24 17:30 Active Bedside COVID-19 Antigen Test NOW Care 05/14/24 17:30 Active Bedside Influenza A&B Antigen Test NOW Care 05/14/24 17:30 Completed Straight [In and Out Catheter] X1 Care 05/14/24 22:11 Completed A1C [Glycohemoglobin w (eAG)] Stat Lab 05/14/24 17:25 Completed Beta Hydroxybutyrate Stat Lab 05/14/24 17:25 Completed CBC Stat Lab 05/14/24 17:25 Completed Comprehensive Metabolic Panel Stat Lab 05/14/24 17:25 Completed HCG Qualitative,Urine Stat Lab 05/14/24 22:26 Completed Lipase Stat Lab 05/14/24 17:25 Completed UA, C/S IF [Urinalysis, C/S if Indicated] Stat Lab 05/14/24 22:26 Completed Urinalysis Stat Lab 05/14/24 22:11 Ordered Urine Culture Stat Lab 05/14/24 22:26 Received VBG [Venous Blood Gas] Stat Lab 05/14/24 17:25 Completed Ondansetron Inj [Zofran Inj] Med 05/14/24 17:31 Discontinued 4 mg IV X1 ONE POTASSIUM CHL 10 mEq IVPB [Kcl Ivpb] Med 05/14/24 20:21 Discontinued 10 meq in 100 ml IV Q1H Sodium Chloride 0.9% 1000 ml [Ns] 1,000 ml Med 05/14/24 17:31 Discontinued IV 999 mls/hr Sodium Chloride 0.9% 1000 ml [Ns] 1,710 ml Med 05/14/24 20:14 Discontinued IV 1,710 mls/hr Vital Signs Vital signs: Vital Signs Temperature 97.9 F 05/14/24 16:47 Pulse Rate 84 05/14/24 16:47 Respiratory Rate 18 05/14/24 16:47 Blood Pressure 122/81 05/14/24 16:47 Pulse Oximetry (%) 99 05/14/24 16:47 Oxygen Delivery Method Room Air 05/14/24 16:47 Nausea/Vomiting/Diarrhea MDM Narrative MDM Narrative:: Differential diagnosis includes pancreatitis, gastritis, acute renal failure, GI bleed, gastroparesis, dehydration. 59-year-old female coming into the emergency department with dehydration and low potassium likely secondary to dry heaving, patient is not in DKA however she does have elevated beta hydroxybutyrate. Carol Ann Cherry am scribing for and in the presence of Dr. Choi. Patient data External records reviewed:: [facility] previous records (Reviewed last ED visit dated 05/07/24, discharged with the following: Nausea and vomiting.) Clinical information provided by:: patient Social determinants that could affect healthcare access:: none Patient has the following chronic illnesses:: Gastritis, hypertension, hypercholesterolemia, diabetes, hypothyroidism, and arthritis. How is presenting disease/condition affected by chronic disease/condition?: exacerbated by Evaluation data The following diagnostics were reviewed and interpreted by me:: lab results Lab and/or radiology exams considered but not ordered:: none Interpretation Summary: See above under MDM narrative. Medications / Prescriptions Medications / Prescriptions considered but not ordered:: none Medication administrations:: Medication Administration History Dextrose (Dextrose 50%-Water Inj 50 Ml Syringe) 25 ml IV Q15MIN PRN PRN Reason: BG 50-70 responsive npo pt Stop: 06/14/24 05:01 Dextrose (Dextrose 50%-Water Inj 50 Ml Syringe) 50 ml IV Q15MIN PRN PRN Reason: BG <50 OR BG <70 & pt unresponsive Stop: 06/14/24 05:01 Glucagon (Glucagon Inj 1 Mg Vial) 1 mg IM Q15MIN PRN PRN Reason: BG <70, and no IV access Heparin Sodium (Porcine) (Heparin Sod Inj 5000 Unit/Ml Vial) 5,000 unit SC Q12HR MEGAN Stop: 05/29/24 08:59 Sodium Chloride (Ns) 1,000 mls @ 100 mls/hr IV .Q10H ONE Stop: 05/15/24 11:29 Last Admin: 05/15/24 01:52 Dose: 100 mls/hr Documented By: KERRY Magnesium Sulfate (Magnesium Sulfate Ivpb) 4 gm in 50 mls @ 12.5 mls/hr IV X1 ONE Stop: 05/15/24 06:57 Last Admin: 05/15/24 03:12 Dose: 12.5 mls/hr Documented By: KERRY Insulin Human Regular (Insulin Hum Regular 1 Unit/0.01 Ml (Per Unit)) 0 unit SC Q6HR MEGAN; Protocol Stop: 06/14/24 05:59 Metoclopramide HCl (Metoclopramide Inj 5 Mg/Ml Vial 2 Ml) 10 mg IVP Q8HR MEGAN; Protocol Stop: 06/14/24 05:59 Metoclopramide HCl (Metoclopramide Inj 5 Mg/Ml Vial 2 Ml) 5 mg IVP Q8HR PRN; Protocol PRN Reason: Nausea or vomiting Last Admin: 05/15/24 01:57 Dose: 5 mg Documented By: KERRY Pantoprazole Sodium (Pantoprazole Inj 40 Mg Vial) 40 mg IVP Q12HR MEGAN Stop: 06/14/24 08:59 Polyethylene Glycol (Polyethylene Glycol 17 Gm Packet) 17 gm PO DAILY MEGAN Stop: 06/14/24 08:59 Discontinued Medications Sodium Chloride (Ns) 1,000 mls @ 999 mls/hr IV .Q1H1M ONE Stop: 05/14/24 18:31 Last Infusion: 05/14/24 20:22 Dose: Infused Documented By: Admin: 05/14/24 19:17 Dose: 999 mls/hr Documented By: KERRY Sodium Chloride (Ns) 1,710 mls @ 1,710 mls/hr 30 ml/kg infuse over 60 min (1710 ml) IV .Q1H ONE Stop: 05/14/24 21:13 Last Infusion: 05/14/24 21:20 Dose: Infused Documented By: Admin: 05/14/24 20:20 Dose: 1,710 mls/hr Documented By: KERRY Potassium Chloride (Kcl Ivpb) 10 meq in 100 mls @ 100 mls/hr IV Q1H MEGAN Stop: 05/14/24 22:20 Last Infusion: 05/14/24 22:28 Dose: Infused Documented By: Admin: 05/14/24 21:24 Dose: 100 mls/hr Documented By: Infusion: 05/14/24 21:24 Dose: Infused Documented By: Admin: 05/14/24 20:29 Dose: 100 mls/hr Documented By: KERRY Ondansetron HCl (Ondansetron Inj 2 Mg/Ml Inj 2 Ml) 4 mg IV X1 ONE; Protocol Stop: 05/14/24 17:32 Last Admin: 05/14/24 19:17 Dose: 4 mg Documented By: KERRY see above Consultations Consultation(s) initiated? (list below): Yes Consultation #1 (Physician, Specialty, Details): Discussed case with [Dr. Hernandez, attending Dr. Ch] from Hospitalist service regarding admission. Discussed patients ED course, exam findings, labs, and radiology results. The Hospitalist [agrees] to accept the patient for admission. Diagnosis Nausea Differential Diagnosis: other (pancreatitis, gastritis, acute renal failure, GI bleed, gastroparesis, dehydration) Most likely diagnosis given after review of the tests above:: see below Admission Indicated Admission indicated?: indicated Admission Request Was there a request for admission?: Yes Admission Attestation Admission request attestation: Discussed case with [] from Hospitalist service regarding admission. Discussed patients ED course, exam findings, labs, and radiology results. The Hospitalist [agrees,declines] to accept the patient for admission. Disposition Plan Disposition Plan: Admit Discharge Plan Plan Patient Disposition: Admit Acute Care w/in Hospital Patient condition on transfer: Stable Problem List Clinical Impression: Dehydration, Hypokalemia, Nausea & vomiting, Intractable nausea and vomiting
[2024-05-14] MEDS: SODIUM CHLORIDE 0.9% 1000 ML 1,710 ML 1710 ML IV (20:20)
[2024-05-14] MEDS: POTASSIUM CHL 10 mEq IVPB 10 MEQ/100 ML BAG 100 MEQ IV ×2 (20:29→21:24)
[2024-05-14 22:05] VITALS: BP 130/85; PULSE 90; RESP 18; TEMP 36.4; O2SAT 100
[2024-05-14 22:47] LABS: Collection Type, Urine Clean Catch
[2024-05-14 23:00] LABS: Bacteria,Urine Rare; Bilirubin,Urine Negative (Negative); Blood,Urine Negative (Negative); Clarity,Urine Turbid (Clear/Hazy); Color,Urine Lt-Yellow (Lt Yel-Yel); Culture Indicated,Urine Contaminated; Glucose, Urine Negative (Negative); Hyaline Casts,Urine < 1 /hpf (0-1); Ketones,Urine 3+ (Negative); Leukocyte Esterase,Urine Positive (Negative); Nitrite,Urine Negative (Negative); Protein,Urine 1+ (Neg - Trace); RBC,Urine 1 /hpf (0-3); Specific Gravity,Urine 1.011 (1.001-1.035); Squamous Epithelial Cell,Urine 13 /hpf (0-5); Urobilinogen,Urine Negative mg/dL (0.0-1.0); WBC,Urine 12 /hpf (0-5)
[2024-05-14 23:02] LABS: HCG Qualitative,Urine Positive
[2024-05-15] VITALS (9 sets, daily range): BP systolic 113–139; BP diastolic 66–80; PULSE 77–94; RESP 14–97; TEMP 36.1–36.9; O2SAT 95–99; BMI 35.4
--- NOTE | 2024-05-15 01:27 | EKG_ITS ---
[facility] Test Date: 2024-05-15 Pat Name: KIM MCCAULEY Department: Room: - Gender: Female Hedis Review Nurse: : 1965 Requested By: Kenny Maciel Order Number: [id number] Reading MD: Kenny Maciel Measurements Intervals [place] Rate: 84 P: 51 DE: 189 QRS: 9 QRSD: 88 T: 85 QT: 395 QTc: 468 Interpretive Statements SINUS RHYTHM ST DEVIATION AND MODERATE T-WAVE ABNORMALITY, CONSIDER ANTEROLATERAL ISCHEMIA [-0.1+ mV T WAVE IN V3-V6] ST DEVIATION AND MODERATE T-WAVE ABNORMALITY, CONSIDER INFERIOR ISCHEMIA [-0.1+ mV T WAVE IN II/aVF] Compared to ECG 03/28/2024 06:20:03 T-wave abnormality now present Possible ischemia now present /store/S0/[id number]/ecg/[id number].pdf
[2024-05-15] MEDS: SODIUM CHLORIDE 0.9% 1000 ML 1,000 ML 100 ML IV (01:52)
[2024-05-15] MEDS: METOCLOPRAMIDE INJ 5 MG/ML VIAL 2 ML IVP ×2 (01:57→18:06)
[2024-05-15 02:37] LABS: HCG,Qualitative Serum Negative
--- NOTE | 2024-05-15 02:38 | ESHP_ITS ---
Documentation for date of: 05/15/24 [facility] History of Present Illness History of present illness: The patient is a 59-year-old female with a past medical history of hypertension, diabetes, hypothyroidism and hyperlipidemia who presented to the ED on 05/14/2024 with abdominal pain, nausea and vomiting that has persisted over the last 2 months. Per the patient, in early February she was diagnosed with diabetes at which time she was started on Jardiance and metformin. Prior to this, she had been having some episodes of vomiting and nausea which she reports to have increased after she started taking this medications. In early March, she presented to the ED and was admitted for starvation ketosis, taken to the ICU for possible insulin drip, however patient was euglycemic and never required. Patient was subsequently downgraded back to the floors after which she had a gastric emptying study done, however the investigation was not completed because the patient vomited contrast when he went to her. GI Dr. Reardon was consulted and EGD was done which showed grade B reflux esophagitis and esophagitis as confirmed by pathology. The patient was then discharged on erythromycin and Reglan, but reports that she has been unable to take either medications as vomiting has persisted. According to her, nothing has particularly changed since discharge and she has had persistence nausea and vomiting still. She denies diarrhea but endorses some constipation and states that she has not had a bowel movement for the last 5 days. ED course: In the ED, patient was afebrile, normotensive. Labs showed WBC 6.8 Hgb 14.1 PLT 284 NA 130 5K2.5 CL 99 bicarb 18.2 anion gap 18 BUN 5 CR 0.9 glucose 104 calcium 10.2 lipase 71 beta hydroxybutyrate 4.6 UA showed 1+ protein 3+ ketones 12 WBC, urine hCG positive. VBG showed a pCO2 of 21 with a base excess of -5. EKG showed sinus rhythm with QTc of 468. The patient received 2.7 L of IV fluids, Zofran and potassium and has been admitted for management of intractable nausea and vomiting/starvation ketosis. Review of Systems Review of Systems Narrative Review of Systems: GENERAL: Denies fevers/chills or diaphoresis. HEENT: Denies headache or visual/hearing changes. Denies nasal discharge. NEURO: Denies unusual weakness or difficulty speaking. CARDIO: Denies chest pain or palpitations. PULM: Denies SOB, coughing, or wheezing. GI: Admits abdominal pain, nausea and vomiting. Reports not having bowel movements in 5 days. URO: Denies burning/itching/pain/urinary changes. MSK/EXT/SKIN: Denies joint/skeletal/muscle pain, issues/changes in upper or lower extremities, itchiness, or superficial pain. PSYCH: Cooperative, pleasant mood & affect. 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 Eyes open, symmetrical, & clear CARDIO: No chest pain on palpation. Heart RRR, no obvious murmurs PULM: No noted coughing/dyspnea. Lungs CTA B/L, no R/W/R GI: Abdomen soft, nondistended, diffusely tender to palpation, worse in epigastric and right quadrant. BSx4 URO/HOLE PUNCHER STRAP:: No further abnormalities noted. SKIN/MSK/EXT: No wounds/rashes/edema/amputations, no pain on palpation. Pedal pulses present B/L Results: Labs 05/14/24 17:25 05/14/24 17:25 Labs: Short CBC 05/14/24 Range/Units 17:25 WBC 6.8 (3.6-11.0) Thou/mm3 Hgb 14.1 (12.0-16.0) g/dL Hct 42.0 (36.0-46.0) % Plt Count 284 (140-440) Thou/mm3 BMP 05/14/24 17:25 Sodium 135 L Potassium 2.5 L* Chloride 99 Carbon Dioxide 18.2 L BUN 5 L Creatinine 0.9 Glucose 104 Calcium 10.1 Liver Function 05/14/24 Range/Units 17:25 Total Bilirubin 1.0 (0.3-1.2) mg/dL AST 32 (0-34) U/L ALT 14 (10-49) U/L Alkaline Phosphatase 56 (46-116) U/L Albumin 3.9 (3.5-5.0) gm/dL Urine 05/14/24 Range/Units 22:26 Urine Color Lt-Yellow (Lt Yel-Yel) Urine Clarity Turbid A (Clear/Hazy) Urine pH 6.0 (5.0-7.0) Ur Specific [place] 1.011 (1.001-1.035) Urine Protein 1+ A (Neg - Trace) Urine Glucose (UA) Negative (Negative) ABG Interpretation ABG results: 05/14/24 17:25 VBG pH 7.49 VBG pCO2 21 L VBG pO2 35 VBG Base Excess -5 L Quality Measures Quality Measures none Medications Home Medications and Allergies Home Medications ?Medication ?Instructions ?Recorded ?Confirmed ?Type hydrochlorothiazide 25 mg tablet 25 mg PO QAM 03/25/24 04/18/24 History levothyroxine 125 mcg tablet 125 mcg PO QDAY 03/25/24 04/18/24 History lovastatin 40 mg tablet 40 mg PO QDAY 03/25/24 04/18/24 History Allergies Allergy/AdvReac Type Severity Reaction Status Date / Time No Known Allergies Allergy Verified 05/14/24 17:08 Visit Medications Heparin Sodium (Porcine) (Heparin Sod Inj 5000 Unit/Ml Vial) 5,000 unit SC Q12HR MEGAN Stop: 05/29/24 08:59 Sodium Chloride (Ns) 1,000 mls @ 100 mls/hr IV .Q10H ONE Stop: 05/15/24 11:29 Last Admin: 05/15/24 01:52 Dose: 100 mls/hr Metoclopramide HCl (Metoclopramide Inj 5 Mg/Ml Vial 2 Ml) 10 mg IVP Q8HR MEGAN; Protocol Stop: 06/14/24 05:59 Metoclopramide HCl (Metoclopramide Inj 5 Mg/Ml Vial 2 Ml) 5 mg IVP Q8HR PRN; Protocol PRN Reason: Nausea or vomiting Last Admin: 05/15/24 01:57 Dose: 5 mg Pantoprazole Sodium (Pantoprazole Inj 40 Mg Vial) 40 mg IVP Q12HR MEGAN Stop: 06/14/24 08:59 Discontinued Medications Sodium Chloride (Ns) 1,000 mls @ 999 mls/hr IV .Q1H1M ONE Stop: 05/14/24 18:31 Last Infusion: 05/14/24 20:22 Dose: Infused Sodium Chloride (Ns) 1,710 mls @ 1,710 mls/hr 30 ml/kg infuse over 60 min (1710 ml) IV .Q1H ONE Stop: 05/14/24 21:13 Last Infusion: 05/14/24 21:20 Dose: Infused Potassium Chloride (Kcl Ivpb) 10 meq in 100 mls @ 100 mls/hr IV Q1H MEGAN Stop: 05/14/24 22:20 Last Infusion: 05/14/24 22:28 Dose: Infused Ondansetron HCl (Ondansetron Inj 2 Mg/Ml Inj 2 Ml) 4 mg IV X1 ONE; Protocol Stop: 05/14/24 17:32 Last Admin: 05/14/24 19:17 Dose: 4 mg Assessment & Plan Assessment Summary: The patient is a 59-year-old female with a past medical history of hypertension, diabetes, hypothyroidism and hyperlipidemia who presented to the ED on 05/14/2024 with abdominal pain, nausea and vomiting that has persisted over the last 2 months. The patient has been admitted for management of intractable nausea and vomiting, starvation ketosis. #Intractable nausea and vomiting #Anion gap metabolic acidosis #Starvation ketosis The patient presented with a 2-month history of nausea and vomiting, states that she has been unable to keep food or drinks as well as p.o. meds down. She was admitted about a month ago with similar symptoms. At that time, gastric emptying scan was attempted but could not be completed as patient vomited contrast. GI Dr. Reardon was consulted and patient had an upper endoscopy done which showed esophagitis and gastritis, confirmed with pathology-no malignancy. Patient was discharged on erythromycin with that she has been unable to take any of her p.o. meds as she still had persistent nausea and vomiting. ED, labs are significant for hypokalemia, metabolic acidosis with anion gap of 18 glucose 104. Patient received approximately 2.7 L of NS in the ED. Plan: -Admit to med telemetry -Maintenance IV fluid NS at 100 cc/h -Nausea and vomiting management with Reglan -N.p.o. for now -Protonix 40 mg twice daily #Hypokalemia Admitting potassium-2.5, magnesium-1.7 IV potassium 20 mEq given in the ED so far Plan: -Replete potassium and magnesium #History of diabetes Patient has a history of diabetes, recently diagnosed in February. A1c on last admission in March was 10.3. Patient reports that she has not been taking any medications including insulin and her blood sugars have been within control, highest value has been 146. A1c today-6.8% Plan: -Monitor blood sugar closely and commence ISS if needed -Keep blood sugar within goal 1 40-1 80 -Hypoglycemic protocols in place #History of hypothyroidism The patient takes levothyroxine 125 mcg daily. Due to nausea and vomiting she has not taken consistently over the past 2 months. Plan: -TSH -Restart medication once able to tolerate p.o. Health maintenance: Dispo: MedTele Diet: NPO GI: Pantoprazole DVT: SC Heparin [place]: None Lines: Peripheral Med Rec: Pending, f/u PT: Code: Full Case was discussed with attending physician, Dr Scotty Maciel MD PGY-1 Attending Provider Attestation/Addendum 59-year-old female was seen in the ER. The patient was evaluated in the ER for persistent nausea and vomiting. She has minimal abdominal pain. She mentioned weight loss of about 25 pounds over the last few months. She had recent EGD showing gastritis. Nuclear gastric emptying study was not completed at that time. Patient is on oral medication for diabetes mellitus. She has elevated beta hydroxybutyric acid tonight. Her CO2 is 18. She has elevated anion gap but her blood glucose levels are not elevated. Patient was given IV fluid boluses in the ER and was subsequently admitted.
[2024-05-15 02:47] LABS: Magnesium 1.7 mg/dL (1.6-2.6)
[2024-05-15] MEDS: Magnesium Sulfate 4 GM Ivpb 4 GM/50 ML BAG IV (03:12)
[2024-05-15 05:04] LABS: Basophils # (Auto) 0.1 Thou/mm3 (0.0-0.2); Basophils % (Auto) 1 % (0-2.5); Eosinophils # (Auto) 0.3 Thou/mm3 (0.0-0.5); Eosinophils % (Auto) 6 % (0-10); Hematocrit 33.9 % (36.0-46.0); Hemoglobin 11.5 g/dL (12.0-16.0); Immature Granulocytes % (Auto) 0 % (0-0); Immature Granulocytes Auto 0.01 Thou/mm3 (0.00-0.00); Lymphocytes # (Auto) 1.4 Thou/mm3 (1.0-4.8); Lymphocytes % (Auto) 25 % (10-50); Mean Corpuscular HGB Conc 33.9 g/dl (31.0-37.0); Mean Corpuscular Volume 85 fL (80-100); Monocytes # (Auto) 0.9 Thou/mm3 (0.0-0.8); Monocytes % (Auto) 16 % (0-12); Neutrophils # (Auto) 2.9 Thou/mm3 (1.8-7.7); Neutrophils % (Auto) 52 % (37-80); Nucleated Red Blood Cell % 0 /100 WBC (0); Platelet Count 243 Thou/mm3 (140-440); RDW Standard Deviation 53.8 fL (36.4-46.3); Red Blood Count 3.97 Miln/mm3 (4.00-5.20); White Blood Count 5.6 Thou/mm3 (3.6-11.0)
[2024-05-15 05:40] LABS: Alanine Aminotransferase 11 U/L (10-49); Anion Gap 14 (7-16); Aspartate Amino Transferase 29 U/L (0-34); BUN/Creatinine Ratio 8 Ratio (12-20); Bilirubin,Total 0.8 mg/dL (0.3-1.2); Blood Urea Nitrogen < 5 mg/dL (9-23); Carbon Dioxide 18.2 mMol/L (20.0-31.0); Chloride 107 mMol/L (98-107); Cholesterol 183 mg/dL (132-200); Creatinine (Component) 0.6 mg/dL (0.6-1.3); Estimated Creatinine Clearance 116.1 mL/min (>60); Glucose 93 mg/dL (74-106); HDL Cholesterol 36 mg/dL (40-60); LDL Cholesterol,Calculated 126 mg/dL (0-130); Magnesium 2.2 mg/dL (1.6-2.6); Osmolality,Calculated 274 (275-295); Sodium 139 mMol/L (136-145); Total Protein 5.4 gm/dL (5.7-8.2); Triglycerides 107 mg/dL (30-150); eGFR > 60 See Note
[2024-05-15 05:41] LABS: Albumin/Globulin Ratio 1.3 (1.2-2.2); Alkaline Phosphatase 41 U/L (46-116); Calcium 8.5 mg/dL (8.3-10.6); Calcium (Corrected) 9.3 mg/dL (8.5-10.1); Cardiac Risk Estimate 5.1 RATIO (3.7-5.6); Globulin 2.4 gm/dL (2.3-3.5); Thyroid Stimulating Hormone 126.18 uIU/mL (0.55-4.78)
[2024-05-15 05:52] LABS: Potassium 2.5 mMol/L (3.4-5.1)
--- NOTE | 2024-05-15 06:39 | PC.NURSE ---
Pt refused to take the PO Potassium. Informed Dr. Hernandez that the pt is refusing to take the PO meds.
[2024-05-15] MEDS: METOCLOPRAMIDE INJ 5 MG/ML VIAL 2 ML 10 MG IVP ×3 (06:44→21:31)
[2024-05-15] MEDS: POTASSIUM CHL 10 mEq IVPB 10 MEQ/100 ML BAG 100 MEQ IV ×6 (07:21→21:37)
[2024-05-15] MEDS: PANTOPRAZOLE INJ 40 MG VIAL IVP ×2 (08:49→21:29)
[2024-05-15] MEDS: HEPARIN SOD INJ 5000 UNIT/ML VIAL SC ×2 (08:50→21:39)
--- NOTE | 2024-05-15 09:29 | PC.SS ---
Follow up note: Pt is on IV fluids and not tolerating feeds.
[2024-05-15 10:47] LABS: Albumin, Serum 3.3 gm/dL (3.5-5.0); Anion Gap 15 (7-16); BUN/Creatinine Ratio 7 Ratio (12-20); Blood Urea Nitrogen < 5 mg/dL (9-23); Calcium 8.6 mg/dL (8.3-10.6); Calcium (Corrected) 9.2 mg/dL (8.5-10.1); Carbon Dioxide 18.5 mMol/L (20.0-31.0); Chloride 106 mMol/L (98-107); Creatinine (Component) 0.7 mg/dL (0.6-1.3); Estimated Creatinine Clearance 97.6 mL/min (>60); Glucose 92 mg/dL (74-106); Osmolality,Calculated 274 (275-295); Phosphorous 1.9 mg/dL (2.4-5.1); Sodium 139 mMol/L (136-145); eGFR > 60 See Note
[2024-05-15 10:51] LABS: Potassium 2.5 mMol/L (3.4-5.1)
[2024-05-15 11:00] LABS: Free T4 (Free Thyroxine) 0.47 ng/dL (0.89-1.76)
[2024-05-15] MEDS: ERYTHROMYCIN INJ 250 MG in SODIUM CHLORIDE 0.9% 100 ML 100 MG IV ×3 (11:08→23:58)
--- NOTE | 2024-05-15 12:14 | PC.SS ---
SS met with patient regarding her d/c plan. Pt is alert/oriented. Pt was admitted for alone. Pt confirmed demographic and contact information is correct on facesheet. Pt resides with alone. Pt ambulates using a 4 wheel with seat, rollator walker. Pt is ok with all ADLs. Patient?s pharmacy of choice is [facility] on [address]. Pt named her cousin, Mendy Rodriguez, phone# [phone] medical decision maker if she is unable. Patient?s choice is to return home upon d/c. Pt states she is diabetic, has glucometer, and test strips. Pt states she uses insulin injections for her diabetes. Pt follows up with [facility] with Dr. Dill. Pt possibly will require transportation home. D/C plan: Return home Next of Kin: Mendy Rodriguez, cousin, phone# [phone] PCP: [facility] Address: Correct on facesheet
[2024-05-15] MEDS: LEVOTHYROXINE INJ 100 mCg VIAL 50 MCG IV (13:38)
[2024-05-15 14:24] LABS: Anion Gap 13 (7-16); BUN/Creatinine Ratio 8 Ratio (12-20); Beta HCG,Quantitative 10 mIU/mL (<5.0); Blood Urea Nitrogen < 5 mg/dL (9-23); Calcium 8.5 mg/dL (8.3-10.6); Carbon Dioxide 18.1 mMol/L (20.0-31.0); Chloride 108 mMol/L (98-107); Creatinine (Component) 0.6 mg/dL (0.6-1.3); Estimated Creatinine Clearance 113.9 mL/min (>60); Glucose 100 mg/dL (74-106); Osmolality,Calculated 274 (275-295); Potassium 2.8 mMol/L (3.4-5.1); Sodium 139 mMol/L (136-145); eGFR > 60 See Note
[2024-05-15 14:51] LABS: Carcinoembryonic Antigen 2.6 ng/mL (0.0-5.0)
--- NOTE | 2024-05-15 15:25 | ESPR_ITS ---
<Statement entered by Иван Boland MD - 05/15/24 16:53> Patient was seen and examined at bedside. Patient reported that she has been n.p.o. she did not had any vomiting. She was agreeable on starting some clear liquid diet for now. We DC'd also her IV fluids at this time. Patient potassium was 2.5, she was getting 40 mill equivalents of IV potassium. Repeat BMP showed improvement of potassium to 2.8. Will continue replating potassium we will add another 40 mill equivalent of potassium IV. Because the patient bicarb are low Patient was found to be acidotic for that reason we repeated VBG, we also ordered urine electrolytes and urine creatinine, and we also ordered beta-hydroxybutyrate to rule out starvation ketosis as her urine ketones is +3. We consulted the substation supervisor Dr. Reardon and she recommended to continue with the erythromycin and Reglan regimen and he will come to assess the patient later on today. We also noticed that the patient has abdominal CT scan was done without contrast on 06 May and showed possible dermoid cyst in the pelvic area. We ordered for the patient tumor markers specifically beta-hCG, CA 25, alpha-fetoprotein, CEA. Will follow-up on the results. Because the patient was not able to tolerate oral feeds we switched her levothyroxine medications to IV Synthyroid 50 mcg IV. - Patient's plan and care discussed with my attending, Dr. Elizabeth Boland MD Internal Medicine PGY-2 Documentation for date of: 05/15/24 Subjective Subjective Interval history: Patient examined at bedside today. Is having experiencing taking in food feels a bit nauseous but is requesting to drink water. She has been vomiting for the past 10 days, has lost weight, has not been able to take her oral medications, vomiting has not been bloody. These are similar symptoms to which she had about 2 months ago when she was admitted in the hospital. No other complaints at this time Exam Vital Signs Temp Pulse Resp BP Pulse Ox O2 Del Method 97.1 F 83 18 129/75 97 Room Air 05/15/24 12:00 05/15/24 12:19 05/15/24 12:19 05/15/24 12:00 05/15/24 12:00 05/15/24 12:00 Narrative Exam General: AAOx3, NAD, HEENT: Dry mucous membranes, conjunctiva clear, EOMI, PERRLA, Cardiovascular: S1, S2, radial pulses +2 bilat, RRR Pulmonary: CTAB bilat no cough, no wheezing GI: Slight tenderness to light palpitation, no guarding, rigidity, rebound tenderness or distension, bowel sounds present Extremities: No presence of trace or pitting edema in lower extremities bilaterally, dorsalis pedis pulses +2 bilaterally Neuro: AAOx3, no focal motor or sensory deficits in the UE or LE bilat Psych: Good judgement, thought and behavior. Cooperative Objective Labs 05/16/24 04:52 05/16/24 04:52 Labs: Laboratory Results - last 24 hr 05/14/24 05/14/24 05/15/24 17:25 22:26 01:49 WBC 6.8 RBC 4.91 Hgb 14.1 Hct 42.0 MCV 86 MCH 28.7 MCHC 33.6 RDW Std Deviation 53.2 H Plt Count 284 Neut % (Auto) 58 Lymph % (Auto) 21 [place] % (Auto) 17 H Eos % (Auto) 4 Baso % (Auto) 1 Neut # (Auto) 3.9 Lymph # (Auto) 1.4 [place] # (Auto) 1.1 H Eos # (Auto) 0.3 Baso # (Auto) 0.1 Immature Gran # (Auto) 0.03 H Absolute Nucleated RBC 0.00 Immature Gran % 0 Nucleated RBC % 0 VBG pH 7.49 VBG pCO2 21 L VBG pO2 35 VBG O2 Sat (Rhys) 76 L VBG Base Excess -5 L Sodium 135 L Potassium 2.5 L* Chloride 99 Carbon Dioxide 18.2 L Anion Gap 18 H BUN 5 L Creatinine 0.9 Estim Creat Clear Calc Not Performed. eGFR > 60 BUN/Creatinine Ratio 6 L Glucose [address] Glu mg/dL 148 H Hemoglobin A1c 6.8 H Calculated Osmolality 267 L Calcium 10.1 Corrected Calcium 10.2 H Phosphorus 2.0 L Magnesium 1.7 Total Bilirubin 1.0 AST 32 ALT 14 Alkaline Phosphatase 56 Total Protein 7.1 Albumin 3.9 Globulin 3.2 Albumin/Globulin Ratio 1.2 Triglycerides Cholesterol LDL Cholesterol, Calc HDL Cholesterol Cholesterol/HDL Ratio Lipase 71 H Tumor Marker AFP Carcinoembryonic Ag CA 125 Antigen Beta-Hydroxybutyrate/Acetoacetate 4.6 H TSH Free T4 HCG, Qual Negative Beta HCG, Quant Ur Collection Type Clean Catch Urine Color Lt-Yellow Urine Clarity Turbid A Urine pH 6.0 Ur Specific [place] 1.011 Urine Protein 1+ A Urine Glucose (UA) Negative Urine Ketones 3+ A Urine Blood Negative Urine Nitrite Negative Urine Bilirubin Negative Urine Urobilinogen (Auto) Negative Ur Leukocyte Esterase Positive Urine RBC 1 Urine WBC 12 H Ur Squamous Epith Cells 13 H Urine Bacteria Rare Hyaline Casts < 1 Ur Culture Indicated? Contaminated Urine HCG, Qual Positive 05/15/24 05/15/24 05/15/24 04:25 10:00 13:42 WBC 5.6 RBC 3.97 L Hgb 11.5 L D Hct 33.9 L MCV 85 MCH 29.0 MCHC 33.9 RDW Std Deviation 53.8 H Plt Count 243 D Neut % (Auto) 52 Lymph % (Auto) 25 [place] % (Auto) 16 H Eos % (Auto) 6 Baso % (Auto) 1 Neut # (Auto) 2.9 Lymph # (Auto) 1.4 [place] # (Auto) 0.9 H Eos # (Auto) 0.3 Baso # (Auto) 0.1 Immature Gran # (Auto) 0.01 H Absolute Nucleated RBC 0.00 Immature Gran % 0 Nucleated RBC % 0 VBG pH VBG pCO2 VBG pO2 VBG O2 Sat (Rhys) VBG Base Excess Sodium 139 139 139 Potassium 2.5 L* 2.5 L* 2.8 L Chloride 107 106 108 H Carbon Dioxide 18.2 L 18.5 L 18.1 L Anion Gap 14 15 13 BUN < 5 L < 5 L < 5 L Creatinine 0.6 0.7 0.6 Estim Creat Clear Calc 116.1 97.6 113.9 eGFR > 60 > 60 > 60 BUN/Creatinine Ratio 8 L 7 L 8 L Glucose [address] Glu mg/dL Hemoglobin A1c Calculated Osmolality 274 L 274 L 274 L Calcium 8.5 D 8.6 8.5 Corrected Calcium 9.3 9.2 Phosphorus 1.9 L Magnesium 2.2 Total Bilirubin 0.8 AST 29 ALT 11 Alkaline Phosphatase 41 L D Total Protein 5.4 L Albumin 3.0 L D 3.3 L Globulin 2.4 Albumin/Globulin Ratio 1.3 Triglycerides 107 Cholesterol 183 LDL Cholesterol, Calc 126 HDL Cholesterol 36 L Cholesterol/HDL Ratio 5.1 Lipase Tumor Marker AFP 3.00 Carcinoembryonic Ag 2.6 CA 125 Antigen 10.0 Beta-Hydroxybutyrate/Acetoacetate TSH 126.18 H* Free T4 0.47 L HCG, Qual Beta HCG, Quant 10 Ur Collection Type Urine Color Urine Clarity Urine pH Ur Specific [place] Urine Protein Urine Glucose (UA) Urine Ketones Urine Blood Urine Nitrite Urine Bilirubin Urine Urobilinogen (Auto) Ur Leukocyte Esterase Urine RBC Urine WBC Ur Squamous Epith Cells Urine Bacteria Hyaline Casts Ur Culture Indicated? Urine HCG, Qual ABG Interpretation ABG results: 05/14/24 17:25 VBG pH 7.49 VBG pCO2 21 L VBG pO2 35 VBG Base Excess -5 L Quality Measures Quality Measures none Assessment & Plan Assessment Current Active Medications: Generic Name Dose Route Start Last Admin Trade Name Freq PRN Reason Stop Dose Admin Dextrose 25 ml 05/15/24 05:02 Dextrose 50%-Water Inj 50 Ml Syringe IV 06/14/24 05:01 Q15MIN PRN BG 50-70 responsive npo pt Dextrose 50 ml 05/15/24 05:02 Dextrose 50%-Water Inj 50 Ml Syringe IV 06/14/24 05:01 Q15MIN PRN BG <50 OR BG <70 & pt unresponsive Glucagon 1 mg 05/15/24 05:02 Glucagon Inj 1 Mg Vial IM Q15MIN PRN BG <70, and no IV access Heparin Sodium (Porcine) 5,000 unit 05/15/24 09:00 05/15/24 08:50 Heparin Sod Inj 5000 Unit/Ml Vial SC 05/29/24 08:59 5,000 unit Q12HR MEGAN Administration Erythromycin Lactobionate 250 100 mls @ 100 mls/hr 05/15/24 09:00 05/15/24 11:08 mg/ Sodium Chloride IV 05/22/24 08:59 100 mls/hr Q6HR MEGAN Administration Insulin Human Regular 0 unit 05/15/24 06:00 05/15/24 13:00 Insulin Hum Regular 1 Unit/0.01 Ml (Per Unit) SC 06/14/24 05:59 Not Given Q6HR [facility] Protocol Levothyroxine Sodium 50 mcg 05/15/24 12:30 05/15/24 13:38 Levothyroxine Inj 100 Mcg Vial IV 06/14/24 12:29 50 mcg QAM MEGAN Administration Metoclopramide HCl 10 mg 05/15/24 06:00 05/15/24 14:40 Metoclopramide Inj 5 Mg/Ml Vial 2 Ml IVP 06/14/24 05:59 10 mg Q8HR MEGAN Administration Protocol Metoclopramide HCl 5 mg 05/15/24 01:27 05/15/24 01:57 Metoclopramide Inj 5 Mg/Ml Vial 2 Ml IVP 5 mg Q8HR PRN Administration Nausea or vomiting Protocol Pantoprazole Sodium 40 mg 05/15/24 09:00 05/15/24 08:49 Pantoprazole Inj 40 Mg Vial IVP 06/14/24 08:59 40 mg Q12HR MEGAN Administration Polyethylene Glycol 17 gm 05/15/24 09:00 05/15/24 08:50 Polyethylene Glycol 17 Gm Packet PO 06/14/24 08:59 Not Given DAILY MEGAN Plan Assessment The patient is a 59-year-old female with a past medical history of hypertension, diabetes, hypothyroidism and hyperlipidemia who presented to the ED on 05/14/2024 with abdominal pain, nausea and vomiting that has persisted over the last 2 months. The patient has been admitted for management of intractable nausea and vomiting, starvation ketosis. #Intractable nausea and vomiting with severe dehydration #Anion gap metabolic acidosis #Starvation ketosis The patient presented with a 2-month history of nausea and vomiting, states that she has been unable to keep food or drinks as well as p.o. meds down. She was admitted about a month ago with similar symptoms. At that time, gastric emptying scan was attempted but could not be completed as patient vomited contrast. GI Dr. Reardon was consulted and patient had an upper endoscopy done which showed esophagitis and gastritis, confirmed with pathology-no malignancy. Patient was discharged on erythromycin with that she has been unable to take any of her p.o. meds as she still had persistent nausea and vomiting. ED, labs are significant for hypokalemia, metabolic acidosis with anion gap of 18 glucose 104. Patient received approximately 2.7 L of NS in the ED. Will hold on IV fluid maintenance at this time and see how patient tolerates clear liquid Cannot give a gastric emptying setting considering patient has got Reglan Will hold off on scanning patient's belly at this time since patient is a bit dehydrated Will hold on scanning patient's head for possible mass effect causing recurrent nausea and vomiting Plan: ?GI consulted, appreciate recs ?Reglan every 8 hours ?Erythromycin 250 every 6 hours ?Clear liquid diet ?Protonix 40 mg twice daily ?Repeat VBG #Electrolyte abnormalities #Hypokalemia secondary to #GI losses Will administer IV replenishment as patient cannot tolerate p.o. Plan: ?Replete as needed ?Treat as above with antiemetics #History of dermoid cyst Diagnosed on previous admission, did not get transvaginal ultrasound Hyperechoic mass noted avascular in the region of the uterus 6.0 x 6.2 x 6.4 cm Unsure if this may be related to patient's nausea and vomiting, but will workup at this time Plan: ? Beta-hCG quantitative serum ? Tumor markers including AFP, CEA, CA?125 #History of diabetes Patient has a history of diabetes, recently diagnosed in February. A1c on last admission in March was 10.3. Patient reports that she has not been taking any medications including insulin and her blood sugars have been within control, highest value has been 146. A1c today-6.8% Plan: -Monitor blood sugar closely and commence ISS if needed -Keep blood sugar within goal 140-1 80 -Hypoglycemic protocols in place #History of hypothyroidism The patient takes levothyroxine 125 mcg daily. Due to nausea and vomiting she has not taken consistently over the past 2 months. TSH: 125; Free T4: 0.47 Will replete with IV Synthroid (home dose 75 mcg) as patient cannot tolerate p.o. Plan: ?Synthroid 50 mcg IV daily #Health Maintenance Disposition: Med telemetry DVT prophylaxis: Heparin GI prophylaxis: Protonix Diet: Clear liquid CODE STATUS: Full Patient seen and care discussed with my senior resident, Dr. Boland , and my attending physician, Dr. Elizabeth Solorio, PGY-1 Attending Provider Attestation/Addendum I have discussed and was present for the essential components of the history, physical examination, diagnosis, and treatment plan with the resident. I agree with the patient's care as documented by the resident and amended herein by me. Rogelio Johnson DO. Although this document has been carefully reviewed, there may still be some phonetic and other typographical errors. These errors are purely grammatical due to imperfections in the software program and should not be construed in any way to compromise the substance of the patient's medical care during this visit.
--- NOTE | 2024-05-15 16:11 | PC.SS ---
Pt requested to have her next of kin information (Mendy Rodriguez, cousin, phone# [phone]) updated. SS spoke to Gina from patient registration and provide him with patient's next of kin information to update patient's facesheet.
[2024-05-15 17:06] LABS: Base Excess, Venous -7 (-3-3); O2 Saturation, Venous 78 % (96-97); PCO2, Venous 28 mmHg (36-56); PO2, Venous 43 mmHg (15-58); pH, Venous 7.39 (7.33-7.66)
--- NOTE | 2024-05-15 18:26 | XR_ITS ---
Examination: CT brain head without contrast. 2-D sagittal coronal reconstructions Date and time of exam:May 15, 2024 1936 hrs. Indications: Intractable nausea, vomiting, blurred vision with nystagmus today CTDI: vol (mGy):47.3 DLP: (mGycm):981 Technique: Multiple CT axial sections of the brain have been obtained, 5 mm slice thickness. Contrast has not been administered. 2-D sagittal, coronal reconstructions have been obtained Low dose protocols were performed. One or more of the following dose reduction techniques were used; automated exposure control, adjustment of the mA and/or KV according to patient size, use of iterative reconstruction technique. Findings: No significant ventricular enlargement. Intra-axial or extra-axial hemorrhage density is not seen. No mass effect or midline shift Basal cisterns are not remarkable. Fourth ventricle is midline. Cranial vault intact. Impression: Negative for acute hemorrhage, mass effect or midline shift As clinically warranted, consider brain MRI follow-up, stroke protocol
--- NOTE | 2024-05-15 18:27 | XR_ITS ---
Examination: Venous duplex lower extremity sonogram, bilateral. Date and time of exam: May 15, 2024 1114 hrs. Indications: Bilateral leg pain and swelling beginning 2 months ago Technique: Multiple sonographic images of the deep venous system have been obtained. B-mode/2-D grayscale imaging of vascular structures and Doppler spectral analysis (waveforms) and color performed Both legs are examined. Findings: Deep venous systems do not demonstrate abnormal echogenicity. Poor compressibility distal right femoral vein but color flow noted. Impression: Negative for deep vein thrombosis
--- NOTE | 2024-05-15 19:22 | ESCONSULT_ITS ---
HPI Data of Consult Requesting Physician: Eduardo Johnson DO Primary Care Provider: Physician No Primary/Family Consult Narrative Reason for consult: Intractable nausea vomiting History of present illness: 59 years old female asked by the internal medicine team to evaluate for intractable nausea vomiting I have known this patient from my previous evaluation on 03/28/2024 when she had a similar presentation She was diagnosed with gastroparesis/gastric motility disorder Patient could not complete the gastric emptying nuclear medicine study as she started vomiting during the procedure and it was discontinued Upper endoscopy showed gastric due to disorder diffuse gastritis and distal esophagitis Patient did very well with IV Reglan and was switched to p.o. erythromycin as well as p.o. Reglan She came back with almost similar symptoms with hypokalemia and the potassium was 2.5 cc:: cc: Eduardo Johnson DO Review of Systems Review of Systems Systems Reviewed: All systems reviewed, normal except as documented Meds Home Medications and Allergies Home Medications ?Medication ?Instructions ?Recorded ?Confirmed ?Type hydrochlorothiazide 25 mg tablet 25 mg PO QAM 03/25/24 04/18/24 History levothyroxine 125 mcg tablet 125 mcg PO QDAY 03/25/24 04/18/24 History lovastatin 40 mg tablet 40 mg PO QDAY 03/25/24 04/18/24 History Allergies Allergy/AdvReac Type Severity Reaction Status Date / Time No Known Allergies Allergy Verified 05/14/24 17:08 Exam Vital Signs Temp Pulse Resp BP Pulse Ox O2 Del Method 97.1 F 80 17 115/69 95 Room Air 05/15/24 16:00 05/15/24 16:00 05/15/24 16:00 05/15/24 16:00 05/15/24 16:00 05/15/24 16:00 Constitutional Comments: Chronically ill-appearing Routine Respiratory Exam Comments: Normal to auscultation Routine Abdominal Exam Comments: Soft Results Labs 05/15/24 04:25 05/15/24 13:42 Labs: Short CBC 05/15/24 Range/Units 04:25 WBC 5.6 (3.6-11.0) Thou/mm3 Hgb 11.5 L D (12.0-16.0) g/dL Hct 33.9 L (36.0-46.0) % Plt Count 243 D (140-440) Thou/mm3 BMP 05/15/24 05/15/24 05/15/24 04:25 10:00 13:42 Sodium 139 139 139 Potassium 2.5 L* 2.5 L* 2.8 L Chloride 107 106 108 H Carbon Dioxide 18.2 L 18.5 L 18.1 L BUN < 5 L < 5 L < 5 L Creatinine 0.6 0.7 0.6 Glucose 93 92 100 Calcium 8.5 D 8.6 8.5 Liver Function 05/15/24 05/15/24 Range/Units 04:25 10:00 Total Bilirubin 0.8 (0.3-1.2) mg/dL AST 29 (0-34) U/L ALT 11 (10-49) U/L Alkaline Phosphatase 41 L D (46-116) U/L Albumin 3.0 L D 3.3 L (3.5-5.0) gm/dL Urine 05/14/24 Range/Units 22:26 Urine Color Lt-Yellow (Lt Yel-Yel) Urine Clarity Turbid A (Clear/Hazy) Urine pH 6.0 (5.0-7.0) Ur Specific [place] 1.011 (1.001-1.035) Urine Protein 1+ A (Neg - Trace) Urine Glucose (UA) Negative (Negative) ABG Interpretation ABG results: 05/14/24 05/15/24 17:25 16:48 VBG pH 7.49 7.39 VBG pCO2 21 L 28 L VBG pO2 35 43 VBG Base Excess -5 L -7 L Assessment and Plan Additional Assessment & Plan Additional Plan: # Gastric motility disorder with gastroparesis # Hypokalemia Plan IV Reglan 10 mg IV push every 6 Discussed case with internal medicine team Also start the patient on IV erythromycin and consultation with pharmacy I went over the medicine list the patient had at home Regular was not on her list of medications later mostly erythromycin p.o. May be that is the reason she went back into vomiting No need for a repeat endoscopy No need to order the nuclear medicine gastric emptying study as patient will vomit again through the procedure and if no waste of test Thank you once again for the opportunity to participate in care of this patient
--- NOTE | 2024-05-15 19:50 | PC.NURSE ---
Addendum entered by Wilber Chaves RN 05/15/24 19:53: Dr. Hays said to change order to [facility]. Original Note: Pt. is on q6 blood sugar checks with a diet of clear liquid. Pt. was NPO on AM shift, but clear liquid diet on NOC shift. RN will contact hospitalist to change order.
--- NOTE | 2024-05-15 20:01 | PC.NURSE ---
Addendum entered by Wilber hCaves RN 05/15/24 20:20: Dr. Maciel made aware of negative CT scan results. Addendum entered by Wilber Chaves RN 05/15/24 20:03: Hospitalists did not answer call. Original Note: RN attempted to notify hospitalists of CT scan results, but hospitalists did not answer call. Will try again.
[2024-05-15 20:49] LABS: Anion Gap 13 (7-16); BUN/Creatinine Ratio 8 Ratio (12-20); Blood Urea Nitrogen < 5 mg/dL (9-23); Calcium 8.4 mg/dL (8.3-10.6); Carbon Dioxide 18.6 mMol/L (20.0-31.0); Chloride 105 mMol/L (98-107); Creatinine (Component) 0.6 mg/dL (0.6-1.3); Estimated Creatinine Clearance 113.9 mL/min (>60); Glucose 100 mg/dL (74-106); Osmolality,Calculated 271 (275-295); Sodium 137 mMol/L (136-145); eGFR > 60 See Note
[2024-05-15 20:51] LABS: Potassium 2.5 mMol/L (3.4-5.1)
--- NOTE | 2024-05-15 20:52 | PC.NURSE ---
Addendum entered by Wilber Chaves RN 05/15/24 21:23: made aware. MD said to continue Potassium 40meQ IV Addendum entered by Wilber Chaves RN 05/15/24 21:20: Hospitalists did not answer [phone] and [phone]. Addendum entered by Wilber Chaves RN 05/15/24 21:17: Hospitalists still did not answer phone. Will try again. Addendum entered by Wilber Chaves RN 05/15/24 20:53: Hospitalists did not answer. Will try again. Original Note: RN made aware of critical potassium of 2.5 . RN will notify hospitalists.
[2024-05-15 20:54] LABS: Creatinine,Random Urine 93 mg/dL (30-125); Potassium,Urine Random 26 mMol/L (12-62); Sodium,Urine Random 58.5 mMol/L (20.0-110.0)
[2024-05-15] MEDS: POTASSIUM CHL 10 mEq IVPB 10 MEQ/100 ML BAG 75 MEQ IV (23:56)
[2024-05-16] VITALS (9 sets, daily range): BP systolic 101–129; BP diastolic 60–73; PULSE 81–92; RESP 15–99; TEMP 36.1–36.6; O2SAT 95–99
--- NOTE | 2024-05-16 02:00 | PRELIM_ITS ---
Bilateral lower extremity venous Doppler ultrasound. May 15, 2024 at 2314 hours-PRELIMINARY REPO RT Clinical history: Rule out deep vein thrombosis.Bilateral leg pain, swelling x 2 months. Referenc e is made to the prior report dated March 26, 2024. Findings:Hendrickson scale, color flow and spectral Doppler evaluation of the lower extremity deep veins was performed.Right: The common femoral, proxima l, mid superficial femoral and popliteal veins are patent and compressible. The distal right superfic ial femoral vein is partially compressible with color flow, multiple attempts to compress were made. No obvious evidence of thrombus is seen in the distal right superficial femoral vein at this time. N ormal respiratory variation is noted. No augmentation is seen in the all of the visualized veins. The great saphenous vein is patent at the level of the saphenofemoral junction. The calf veins to the ex tent visualized are patent. Left: The common femoral, superficial femoral and popliteal veins are pat ent and compressible. Normal respiratory variation is noted. . The great saphenous vein is patent at the level of the saphenofemoral junction. The calf veins to the extent visualized are patent. Impress ion:Distal right superficial femoral vein is partially compressible with color flow and normal spectr al waveforms, multiple attempts to compress were made. No obvious evidence of thrombus is seen in the distal right superficial femoral vein at this time. Recommend follow-up with real time imaging.No ev idence of deep vein thrombosis in the left lower extremity Report Electronically Signed By: Kris arguelles 05/16/2024 2:06:43 AM [EST]
[2024-05-16] MEDS: POTASSIUM CHL 10 mEq IVPB 10 MEQ/100 ML BAG 75 MEQ IV ×6 (02:19→23:58)
[2024-05-16] MEDS: ACETAMINOPHEN 325 MG TABLET 650 MG PO (04:01)
--- NOTE | 2024-05-16 04:04 | PC.NURSE ---
Addendum entered by Wilber Chaves RN 05/16/24 04:17: Dr. Maciel made aware. Dr. Janell neilre aware that next potassium will be drawn with the AM labs. Original Note: Patient recieved 4 bags of Potassium IV. RN will let hospitalist know that potassium lab will be drawn with the morning lab.
[2024-05-16] MEDS: METOCLOPRAMIDE INJ 5 MG/ML VIAL 2 ML 10 MG IVP ×3 (05:04→22:26)
[2024-05-16] MEDS: ERYTHROMYCIN INJ 250 MG in SODIUM CHLORIDE 0.9% 100 ML 100 MG IV ×4 (05:06→23:19)
[2024-05-16 06:05] LABS: Basophils # (Auto) 0.1 Thou/mm3 (0.0-0.2); Basophils % (Auto) 1 % (0-2.5); Eosinophils # (Auto) 0.4 Thou/mm3 (0.0-0.5); Eosinophils % (Auto) 8 % (0-10); Hemoglobin 10.7 g/dL (12.0-16.0); Immature Granulocytes % (Auto) 0 % (0-0); Immature Granulocytes Auto 0.02 Thou/mm3 (0.00-0.00); Lymphocytes # (Auto) 1.3 Thou/mm3 (1.0-4.8); Lymphocytes % (Auto) 27 % (10-50); Mean Corpuscular HGB Conc 34.5 g/dl (31.0-37.0); Mean Corpuscular Hemoglobin 29.4 pg (25.0-35.0); Mean Corpuscular Volume 85 fL (80-100); Monocytes # (Auto) 0.8 Thou/mm3 (0.0-0.8); Monocytes % (Auto) 17 % (0-12); Neutrophils # (Auto) 2.2 Thou/mm3 (1.8-7.7); Neutrophils % (Auto) 47 % (37-80); Nucleated Red Blood Cell % 0 /100 WBC (0); Platelet Count 216 Thou/mm3 (140-440); RDW Standard Deviation 53.4 fL (36.4-46.3); Red Blood Count 3.64 Miln/mm3 (4.00-5.20); White Blood Count 4.8 Thou/mm3 (3.6-11.0)
[2024-05-16 06:48] LABS: Alanine Aminotransferase 12 U/L (10-49); Albumin, Serum 2.9 gm/dL (3.5-5.0); Albumin/Globulin Ratio 1.3 (1.2-2.2); Alkaline Phosphatase 43 U/L (46-116); Anion Gap 13 (7-16); Aspartate Amino Transferase 31 U/L (0-34); BUN/Creatinine Ratio 8 Ratio (12-20); Bilirubin,Total 0.9 mg/dL (0.3-1.2); Blood Urea Nitrogen < 5 mg/dL (9-23); Calcium 8.3 mg/dL (8.3-10.6); Calcium (Corrected) 9.2 mg/dL (8.5-10.1); Carbon Dioxide 18.7 mMol/L (20.0-31.0); Chloride 105 mMol/L (98-107); Creatinine (Component) 0.6 mg/dL (0.6-1.3); Estimated Creatinine Clearance 113.9 mL/min (>60); Globulin 2.2 gm/dL (2.3-3.5); Glucose 82 mg/dL (74-106); Magnesium 2.1 mg/dL (1.6-2.6); Osmolality,Calculated 270 (275-295); Phosphorous 1.8 mg/dL (2.4-5.1); Sodium 137 mMol/L (136-145); Total Protein 5.1 gm/dL (5.7-8.2); eGFR > 60 See Note
[2024-05-16 06:52] LABS: Potassium 2.4 mMol/L (3.4-5.1)
--- NOTE | 2024-05-16 07:18 | PC.NURSE ---
Dr. Ochoa [phone] made aware of critical potassium of 2.4. Dr. Ochoa will put an order for potassium replacement.
[2024-05-16] MEDS: HEPARIN SOD INJ 5000 UNIT/ML VIAL SC ×2 (09:30→20:50)
[2024-05-16] MEDS: PANTOPRAZOLE INJ 40 MG VIAL IVP ×2 (09:30→20:48)
[2024-05-16] MEDS: LEVOTHYROXINE INJ 100 mCg VIAL 50 MCG IV (09:31)
[2024-05-16] MEDS: POT PHOS 15 mMol in NS 250 ML 15 MMOL/250 ML BAG 62.5 MMOL IV (09:34)
--- NOTE | 2024-05-16 11:57 | EKG_ITS ---
[facility] Test Date: 2024-05-16 Pat Name: KIM MCCAULEY [facility] Gender: Female Paperhanger Assistant: VALERIA : 1965 Requested By: Epi Laguna Order Number: [id number] Reading MD: Epi Laguna Measurements Intervals [place] Rate: 86 P: 28 [place]: 139 QRS: 35 QRSD: 96 T: 31 QT: 382 QTc: 459 Interpretive Statements SINUS RHYTHM Compared to ECG 05/15/2024 02:30:13 T-wave abnormality no longer present Possible ischemia no longer present /store/S0/[id number]
[2024-05-16] MEDS: LIDOCAINE 5% 1 PATCH TOP (12:12)
--- NOTE | 2024-05-16 15:20 | ESPR_ITS ---
Documentation for date of: 05/16/24 Subjective Subjective Interval history: Patient examined at bedside today. Has not been vomiting and has been able to tolerate liquid diet. Has not had a bowel movement still says she has a bit of blurry vision, no other complaints at this time Exam Vital Signs Temp Pulse Resp BP Pulse Ox O2 Del Method 97.8 F 84 18 129/73 97 Room Air 05/16/24 12:00 05/16/24 12:00 05/16/24 12:00 05/16/24 12:00 05/16/24 12:00 05/16/24 12:00 Narrative Exam General: AAOx3, NAD, HEENT: Dry mucous membranes, conjunctiva clear, EOMI, PERRLA, Cardiovascular: S1, S2, radial pulses +2 bilat, RRR Pulmonary: CTAB bilat no cough, no wheezing GI: Slight tenderness to light palpitation, no guarding, rigidity, rebound tenderness or distension, bowel sounds present Extremities: No presence of trace or pitting edema in lower extremities bilaterally, dorsalis pedis pulses +2 bilaterally Neuro: Some slow nystagmus with eye movements bilat, AAOx3 Psych: Good judgement, thought and behavior. Cooperative Objective Labs 05/16/24 04:52 05/16/24 04:52 Labs: Laboratory Results - last 24 hr 05/15/24 05/15/24 05/15/24 16:48 19:29 20:05 WBC RBC Hgb Hct MCV MCH MCHC RDW Std Deviation Plt Count Neut % (Auto) Lymph % (Auto) [place] % (Auto) Eos % (Auto) Baso % (Auto) Neut # (Auto) Lymph # (Auto) [place] # (Auto) Eos # (Auto) Baso # (Auto) Immature Gran # (Auto) Absolute Nucleated RBC Immature Gran % Nucleated RBC % VBG pH 7.39 VBG pCO2 28 L VBG pO2 43 VBG O2 Sat (Rhys) 78 L VBG Base Excess -7 L Sodium 137 Potassium 2.5 L* Chloride 105 Carbon Dioxide 18.6 L Anion Gap 13 BUN < 5 L Creatinine 0.6 Estim Creat Clear Calc 113.9 eGFR > 60 BUN/Creatinine Ratio 8 L Glucose 100 Calculated Osmolality 271 L Calcium 8.4 Corrected Calcium Phosphorus Magnesium Total Bilirubin AST ALT Alkaline Phosphatase Total Protein Albumin Globulin Albumin/Globulin Ratio Ur Random Creatinine 93 Ur Random Sodium 58.5 Ur Random Potassium 26 Ur Random Chloride 120.0 05/16/24 04:52 WBC 4.8 RBC 3.64 L Hgb 10.7 L Hct 31.0 L MCV 85 MCH 29.4 MCHC 34.5 RDW Std Deviation 53.4 H Plt Count 216 Neut % (Auto) 47 Lymph % (Auto) 27 [place] % (Auto) 17 H Eos % (Auto) 8 Baso % (Auto) 1 Neut # (Auto) 2.2 Lymph # (Auto) 1.3 [place] # (Auto) 0.8 Eos # (Auto) 0.4 Baso # (Auto) 0.1 Immature Gran # (Auto) 0.02 H Absolute Nucleated RBC 0.00 Immature Gran % 0 Nucleated RBC % 0 VBG pH VBG pCO2 VBG pO2 VBG O2 Sat (Rhys) VBG Base Excess Sodium 137 Potassium 2.4 L* Chloride 105 Carbon Dioxide 18.7 L Anion Gap 13 BUN < 5 L Creatinine 0.6 Estim Creat Clear Calc 113.9 eGFR > 60 BUN/Creatinine Ratio 8 L Glucose 82 Calculated Osmolality 270 L Calcium 8.3 Corrected Calcium 9.2 Phosphorus 1.8 L Magnesium 2.1 Total Bilirubin 0.9 AST 31 ALT 12 Alkaline Phosphatase 43 L Total Protein 5.1 L Albumin 2.9 L Globulin 2.2 L Albumin/Globulin Ratio 1.3 Ur Random Creatinine Ur Random Sodium Ur Random Potassium Ur Random Chloride ABG Interpretation ABG results: 05/14/24 05/15/24 17:25 16:48 VBG pH 7.49 7.39 VBG pCO2 21 L 28 L VBG pO2 35 43 VBG Base Excess -5 L -7 L Quality Measures Quality Measures none Assessment & Plan Assessment Current Active Medications: Generic Name Dose Route Start Last Admin Trade Name Freq PRN Reason Stop Dose Admin Acetaminophen 650 mg 05/15/24 18:27 05/16/24 04:01 Acetaminophen 325 Mg Tablet PO 06/14/24 18:26 650 mg Q4HR PRN Administration Fever >101 or pain 1-3 Dextrose 25 ml 05/15/24 05:02 Dextrose 50%-Water Inj 50 Ml Syringe IV 06/14/24 05:01 Q15MIN PRN BG 50-70 responsive npo pt Dextrose 50 ml 05/15/24 05:02 Dextrose 50%-Water Inj 50 Ml Syringe IV 06/14/24 05:01 Q15MIN PRN BG <50 OR BG <70 & pt unresponsive Glucagon 1 mg 05/15/24 05:02 Glucagon Inj 1 Mg Vial IM Q15MIN PRN BG <70, and no IV access Heparin Sodium (Porcine) 5,000 unit 05/15/24 09:00 05/16/24 09:30 Heparin Sod Inj 5000 Unit/Ml Vial SC 05/29/24 08:59 5,000 unit Q12HR MEGAN Administration Erythromycin Lactobionate 250 100 mls @ 100 mls/hr 05/15/24 09:00 05/16/24 11:48 mg/ Sodium Chloride IV 05/22/24 08:59 100 mls/hr Q6HR MEGAN Administration Insulin Human Regular 0 unit 05/15/24 21:00 05/16/24 11:16 Insulin Hum Regular 1 Unit/0.01 Ml (Per Unit) SC 06/14/24 20:59 Not Given ACHS MEGAN Protocol Levothyroxine Sodium 50 mcg 05/15/24 12:30 05/16/24 09:31 Levothyroxine Inj 100 Mcg Vial IV 06/14/24 12:29 50 mcg QAM MEGAN Administration Metoclopramide HCl 10 mg 05/15/24 06:00 05/16/24 13:48 Metoclopramide Inj 5 Mg/Ml Vial 2 Ml IVP 06/14/24 05:59 10 mg Q8HR MEGAN Administration Protocol Metoclopramide HCl 5 mg 05/15/24 18:28 Metoclopramide Inj 5 Mg/Ml Vial 2 Ml IVP 06/14/24 18:29 Q6HR PRN vomiting Protocol Pantoprazole Sodium 40 mg 05/15/24 09:00 05/16/24 09:30 Pantoprazole Inj 40 Mg Vial IVP 06/14/24 08:59 40 mg Q12HR MEGAN Administration Polyethylene Glycol 17 gm 05/15/24 09:00 05/16/24 09:30 Polyethylene Glycol 17 Gm Packet PO 06/14/24 08:59 17 gm DAILY MEGAN Administration Plan Assessment The patient is a 59-year-old female with a past medical history of hypertension, diabetes, hypothyroidism and hyperlipidemia who presented to the ED on 05/14/2024 with abdominal pain, nausea and vomiting that has persisted over the last 2 months. The patient has been admitted for management of intractable nausea and vomiting, starvation ketosis. #Intractable nausea and vomiting with severe dehydration #Anion gap metabolic acidosis #Starvation ketosis The patient presented with a 2-month history of nausea and vomiting, states that she has been unable to keep food or drinks as well as p.o. meds down. She was admitted about a month ago with similar symptoms. At that time, gastric emptying scan was attempted but could not be completed as patient vomited contrast. GI Dr. Reardon was consulted and patient had an upper endoscopy done which showed esophagitis and gastritis, confirmed with pathology-no malignancy. Patient was discharged on erythromycin with that she has been unable to take any of her p.o. meds as she still had persistent nausea and vomiting. ED, labs are significant for hypokalemia, metabolic acidosis with anion gap of 18 glucose 104. Patient received approximately 2.7 L of NS in the ED. Will hold on IV fluid maintenance at this time and see how patient tolerates clear liquid Cannot give a gastric emptying setting considering patient has got Reglan Will hold off on scanning patient's belly at this time since patient is a bit dehydrated Will hold on scanning patient's head for possible mass effect causing recurrent nausea and vomiting Pt will need outpatient GI follow up Plan: ?GI consulted, appreciate recs ?Reglan every 8 hours ?Erythromycin 250 every 6 hours ?Clear liquid diet ?Protonix 40 mg twice daily #Electrolyte abnormalities #Hypokalemia secondary to #GI losses Will administer IV replenishment as patient cannot tolerate p.o. Serum Potassium 2.4 Urine lytes unremarkable Plan: ?Replete as needed ?Renal panel q8h ?Treat as above with antiemetics #History of dermoid cyst Diagnosed on previous admission, did not get transvaginal ultrasound Hyperechoic mass noted avascular in the region of the uterus 6.0 x 6.2 x 6.4 cm Unsure if this may be related to patient's nausea and vomiting, but will workup at this time Beta-Hcg and tumor markers unremarkable Plan: - Will hold on further workup #History of diabetes Patient has a history of diabetes, recently diagnosed in February. A1c on last admission in March was 10.3. Patient reports that she has not been taking any medications including insulin and her blood sugars have been within control, highest value has been 146. A1c today-6.8% Plan: -Monitor blood sugar closely and commence ISS if needed -Keep blood sugar within goal 140-1 80 -Hypoglycemic protocols in place #History of hypothyroidism The patient takes levothyroxine 125 mcg daily. Due to nausea and vomiting she has not taken consistently over the past 2 months. TSH: 125; Free T4: 0.47 Will replete with IV Synthroid (home dose 75 mcg) as patient cannot tolerate p.o. Plan: ?Synthroid 50 mcg IV daily #Health Maintenance Disposition: Med telemetry DVT prophylaxis: Heparin GI prophylaxis: Protonix Diet: Clear liquid CODE STATUS: Full Patient seen and care discussed with my senior resident, Dr. Boland , and my attending physician, Dr. Elizabeth Solorio, PGY-1 Attending Provider Attestation/Addendum I have discussed and was present for the essential components of the history, physical examination, diagnosis, and treatment plan with the resident. I agree with the patient's care as documented by the resident and amended herein by me. Rogelio Johnson DO. Patient seen and evaluated this AM. In short, patient is a 59-year-old female with a significant past medical history of hypothyroidism, diabetes, hypertension, hyperlipidemia and suspected gastroparesis, presented to the ED with nausea, vomiting, weight loss and abdominal pain over the last 2 months. Patient also presented with a metabolic acidosis, likely starvation ketosis from her intractable nausea and vomiting. Patient recently discharged on 03/31 for similar symptoms, was diagnosed specifically with erythromycin 400 mg p.o. 3 times daily and metoclopramide 5 mg p.o. daily per GI recommendations for suspected diabetic gastroparesis, at that time patient could not perform a gastric emptying study due to inability to keep food down. Despite improvement at last hospital admission in March 2024, when patient returned home, she began to develop symptoms yet again with persistent nausea vomiting, and was unable to take her prescribed medication which likely led to readmission. Vital signs stable, patient afebrile overnight today, patient has been tolerating clear liquid diet and states she feels slightly better today. Vital signs stable, patient afebrile overnight, CBC only remarkable for stable hemoglobin although low at 10.7, BMP demonstrating a low potassium of 2.8 which will be repleted and a bicarb at 18.7 which is a slight improvement from admission. Since the patient is tolerating oral fluids, we will keep that and remove IV fluids at this time. Will continue erythromycin 250 mg IV every 6 hours and Reglan 10 mg IV every 8 hours which seems to be improving her symptoms. Gastroenterology consulted, agrees with medication plan, GI does recommend canceling the gastric emptying study we ordered for this visit as the patient likely will not be able to tolerate the oral intake required for the test. Will continue to monitor closely, likely discharge home in 1 to 2 days. The other issue is the patient's primary provider, the patient was very unclear on who this exactly is, I would like to patient to follow-up in our [facility] however there were some issues scheduling her in the past. Apparently the patient also has a referral for gastroenterology however has been difficult to find a physician willing to see her due to insurance. Situation explained to nephrology social worker, we need to shed more light on the situation to get her established care with a physician that can see her regularly. Will continue to monitor closely while she is here Although this document has been carefully reviewed, there may still be some phonetic and other typographical errors. These errors are purely grammatical due to imperfections in the software program and should not be construed in any way to compromise the substance of the patient's medical care during this visit.
[2024-05-16 16:38] LABS: Albumin, Serum 3.1 gm/dL (3.5-5.0); Anion Gap 13 (7-16); BUN/Creatinine Ratio 8 Ratio (12-20); Blood Urea Nitrogen < 5 mg/dL (9-23); Calcium 8.3 mg/dL (8.3-10.6); Carbon Dioxide 17.2 mMol/L (20.0-31.0); Chloride 104 mMol/L (98-107); Creatinine (Component) 0.6 mg/dL (0.6-1.3); Estimated Creatinine Clearance 113.9 mL/min (>60); Glucose 89 mg/dL (74-106); Lipase 98 U/L (12-53); Osmolality,Calculated 264 (275-295); Phosphorous 2.9 mg/dL (2.4-5.1); Potassium 2.9 mMol/L (3.4-5.1); Sodium 134 mMol/L (136-145); eGFR > 60 See Note
--- NOTE | 2024-05-16 17:41 | PC.NURSE ---
tried to do pt Med rec, pt is unable to tell what medication she is taking or strength, educated pt on bring medications and or list with her to the hospital or doctors office
[2024-05-16] MEDS: RINGERS LACTATED 1000 ML 1,000 ML 75 ML IV (17:59)
--- NOTE | 2024-05-16 19:55 | PD.IMPROG ---
Documentation for date of: 05/16/24 Subjective Subjective Interval history: Improved nausea vomiting Exam Vital Signs Temp Pulse Resp BP Pulse Ox O2 Del Method 97.1 F 88 18 121/63 96 Room Air 05/16/24 16:00 05/16/24 16:00 05/16/24 16:00 05/16/24 16:00 05/16/24 16:00 05/16/24 16:00 Constitutional Comments: Alert oriented Routine Respiratory Exam Comments: Normal to auscultation Routine Abdominal Exam Comments: Soft nontender Objective Labs 05/16/24 04:52 05/16/24 15:39 Labs: Laboratory Results - last 24 hr 05/15/24 05/15/24 05/16/24 19:29 20:05 04:52 WBC 4.8 RBC 3.64 L Hgb 10.7 L Hct 31.0 L MCV 85 MCH 29.4 MCHC 34.5 RDW Std Deviation 53.4 H Plt Count 216 Neut % (Auto) 47 Lymph % (Auto) 27 [place] % (Auto) 17 H Eos % (Auto) 8 Baso % (Auto) 1 Neut # (Auto) 2.2 Lymph # (Auto) 1.3 [place] # (Auto) 0.8 Eos # (Auto) 0.4 Baso # (Auto) 0.1 Immature Gran # (Auto) 0.02 H Absolute Nucleated RBC 0.00 Immature Gran % 0 Nucleated RBC % 0 Sodium 137 137 Potassium 2.5 L* 2.4 L* Chloride 105 105 Carbon Dioxide 18.6 L 18.7 L Anion Gap 13 13 BUN < 5 L < 5 L Creatinine 0.6 0.6 Estim Creat Clear Calc 113.9 113.9 eGFR > 60 > 60 BUN/Creatinine Ratio 8 L 8 L Glucose 100 82 Calculated Osmolality 271 L 270 L Calcium 8.4 8.3 Corrected Calcium 9.2 Phosphorus 1.8 L Magnesium 2.1 Total Bilirubin 0.9 AST 31 ALT 12 Alkaline Phosphatase 43 L Total Protein 5.1 L Albumin 2.9 L Globulin 2.2 L Albumin/Globulin Ratio 1.3 Lipase Ur Random Creatinine 93 Ur Random Sodium 58.5 Ur Random Potassium 26 Ur Random Chloride 120.0 05/16/24 15:39 WBC RBC Hgb Hct MCV MCH MCHC RDW Std Deviation Plt Count Neut % (Auto) Lymph % (Auto) [place] % (Auto) Eos % (Auto) Baso % (Auto) Neut # (Auto) Lymph # (Auto) [place] # (Auto) Eos # (Auto) Baso # (Auto) Immature Gran # (Auto) Absolute Nucleated RBC Immature Gran % Nucleated RBC % Sodium 134 L Potassium 2.9 L D Chloride 104 Carbon Dioxide 17.2 L Anion Gap 13 BUN < 5 L Creatinine 0.6 Estim Creat Clear Calc 113.9 eGFR > 60 BUN/Creatinine Ratio 8 L Glucose 89 Calculated Osmolality 264 L Calcium 8.3 Corrected Calcium 9.0 Phosphorus 2.9 Magnesium Total Bilirubin AST ALT Alkaline Phosphatase Total Protein Albumin 3.1 L Globulin Albumin/Globulin Ratio Lipase 98 H D Ur Random Creatinine Ur Random Sodium Ur Random Potassium Ur Random Chloride Impressions Impression: # Gastroparesis with gastric motility disorder # Nausea vomiting secondary to 1 Continue current management ABG Interpretation ABG results: 05/14/24 05/15/24 17:25 16:48 VBG pH 7.49 7.39 VBG pCO2 21 L 28 L VBG pO2 35 43 VBG Base Excess -5 L -7 L Assessment & Plan A&P Narrative # Gastric motility disorder with gastroparesis # Hypokalemia Plan IV Reglan 10 mg IV push every 6 Discussed case with internal medicine team Also start the patient on IV erythromycin and consultation with pharmacy I went over the medicine list the patient had at home Regular was not on her list of medications later mostly erythromycin p.o. May be that is the reason she went back into vomiting No need for a repeat endoscopy No need to order the nuclear medicine gastric emptying study as patient will vomit again through the procedure and if no waste of test Thank you once again for the opportunity to participate in care of this patient Time Spent With Patient Time: Total time spent is greater than 50% in coordination of care (as documented) at patient's floor/unit and/or counseling patient:
[2024-05-16] MEDS: METOCLOPRAMIDE INJ 5 MG/ML VIAL 2 ML IVP (20:46)
--- NOTE | 2024-05-16 20:56 | PC.NURSE ---
Patient vomiting at 2043. RN gave Reglan 5mg IVP at 2045. RN called inpatient pharmacy and spoke with Louise to ask if it is okay to give the 2200 dose of scheduled Reglan 10mg IVP. Louise from inpatient pharmacy said it is okay to administer.
[2024-05-16 23:24] LABS: Albumin, Serum 3.1 gm/dL (3.5-5.0); Anion Gap 11 (7-16); BUN/Creatinine Ratio 8 Ratio (12-20); Blood Urea Nitrogen < 5 mg/dL (9-23); Calcium 8.6 mg/dL (8.3-10.6); Calcium (Corrected) 9.3 mg/dL (8.5-10.1); Carbon Dioxide 18.6 mMol/L (20.0-31.0); Chloride 106 mMol/L (98-107); Creatinine (Component) 0.6 mg/dL (0.6-1.3); Estimated Creatinine Clearance 113.9 mL/min (>60); Glucose 86 mg/dL (74-106); Osmolality,Calculated 268 (275-295); Phosphorous 2.7 mg/dL (2.4-5.1); Potassium 2.8 mMol/L (3.4-5.1); Sodium 136 mMol/L (136-145); eGFR > 60 See Note
[2024-05-17] VITALS (13 sets, daily range): BP systolic 111–126; BP diastolic 52–84; PULSE 85–98; RESP 15–96; TEMP 36–36.4; O2SAT 95–98
[2024-05-17] MEDS: POTASSIUM CHL 10 mEq IVPB 10 MEQ/100 ML BAG 75 MEQ IV (01:14)
--- NOTE | 2024-05-17 02:19 | PC.NURSE ---
Addendum entered by Wilber Chaves RN 05/17/24 03:19: Dr. Navarro made aware that current potassium rate is running at 50 d/t patient experiencing a burning sensations. Addendum entered by Wilbre Chaves RN 05/17/24 03:16: Hospitalists [phone] and [phone] not answering calls. Addendum entered by Wilber Chaves RN 05/17/24 02:55: RN attempted to call Dr. Walsh at [phone], but no response. Addendum entered by Wilber Chaves RN 05/17/24 02:53: Hospitalists continue not to answer phone [phone]. Addendum entered by Wilber Chaves RN 05/17/24 02:37: Hospitalists not answering [phone]. Addendum entered by Wilber Chaves RN 05/17/24 02:24: RN tried to contact hospitalists [phone] again, but no answer. Original Note: RN attempted to notify hospitalist at [phone] that potassium IV rate was decreased due to patient having a burning sensation.
[2024-05-17] MEDS: POTASSIUM CHL 10 mEq IVPB 10 MEQ/100 ML BAG 50 MEQ IV ×2 (03:26→04:51)
[2024-05-17] MEDS: METOCLOPRAMIDE INJ 5 MG/ML VIAL 2 ML IVP (03:54)
[2024-05-17 05:45] LABS: Basophils % (Auto) 1 % (0-2.5); Eosinophils # (Auto) 0.4 Thou/mm3 (0.0-0.5); Eosinophils % (Auto) 8 % (0-10); Hemoglobin 10.6 g/dL (12.0-16.0); Immature Granulocytes % (Auto) 1 % (0-0); Immature Granulocytes Auto 0.03 Thou/mm3 (0.00-0.00); Lymphocytes # (Auto) 1.3 Thou/mm3 (1.0-4.8); Lymphocytes % (Auto) 26 % (10-50); Mean Corpuscular HGB Conc 34.2 g/dl (31.0-37.0); Mean Corpuscular Volume 85 fL (80-100); Monocytes # (Auto) 0.8 Thou/mm3 (0.0-0.8); Monocytes % (Auto) 18 % (0-12); Neutrophils # (Auto) 2.2 Thou/mm3 (1.8-7.7); Neutrophils % (Auto) 47 % (37-80); Nucleated Red Blood Cell % 0 /100 WBC (0); Platelet Count 225 Thou/mm3 (140-440); RDW Standard Deviation 54.6 fL (36.4-46.3); Red Blood Count 3.66 Miln/mm3 (4.00-5.20); White Blood Count 4.7 Thou/mm3 (3.6-11.0)
[2024-05-17] MEDS: ERYTHROMYCIN INJ 250 MG in SODIUM CHLORIDE 0.9% 100 ML 100 MG IV ×4 (05:46→23:10)
[2024-05-17] MEDS: METOCLOPRAMIDE INJ 5 MG/ML VIAL 2 ML 10 MG IVP ×2 (05:46→13:53)
[2024-05-17 06:16] LABS: Alanine Aminotransferase 14 U/L (10-49); Albumin, Serum 2.8 gm/dL (3.5-5.0); Albumin/Globulin Ratio 1.2 (1.2-2.2); Alkaline Phosphatase 49 U/L (46-116); Anion Gap 13 (7-16); Aspartate Amino Transferase 34 U/L (0-34); BUN/Creatinine Ratio 8 Ratio (12-20); Bilirubin,Total 0.8 mg/dL (0.3-1.2); Blood Urea Nitrogen < 5 mg/dL (9-23); Calcium 8.8 mg/dL (8.3-10.6); Calcium (Corrected) 9.8 mg/dL (8.5-10.1); Carbon Dioxide 17.5 mMol/L (20.0-31.0); Chloride 107 mMol/L (98-107); Creatinine (Component) 0.6 mg/dL (0.6-1.3); Estimated Creatinine Clearance 113.9 mL/min (>60); Globulin 2.4 gm/dL (2.3-3.5); Glucose 88 mg/dL (74-106); Magnesium 1.9 mg/dL (1.6-2.6); Osmolality,Calculated 270 (275-295); Phosphorous 2.4 mg/dL (2.4-5.1); Potassium 3.1 mMol/L (3.4-5.1); Sodium 137 mMol/L (136-145); Total Protein 5.2 gm/dL (5.7-8.2); eGFR > 60 See Note
[2024-05-17] MEDS: LEVOTHYROXINE INJ 100 mCg VIAL 50 MCG IV (08:40)
[2024-05-17] MEDS: ONDANSETRON INJ 2 MG/ML INJ 2 ML 4 MG IV (08:40)
[2024-05-17] MEDS: HEPARIN SOD INJ 5000 UNIT/ML VIAL SC ×2 (08:40→20:45)
[2024-05-17] MEDS: PANTOPRAZOLE INJ 40 MG VIAL IVP ×2 (08:41→20:45)
--- NOTE | 2024-05-17 09:00 | EKG_ITS ---
[facility] Test Date: 2024-05-17 Pat Name: KIM MCCAULEY [facility] [employer]: CEDRICK : 1965 Requested By: Epi Laguna Order Number: [id number] Reading MD: Epi Laguna Measurements Intervals [place] Rate: 93 P: 40 MI: 173 QRS: 25 QRSD: 86 T: 27 QT: 363 QTc: 453 Interpretive Statements SINUS RHYTHM Compared to ECG 05/16/2024 12:10:35 No significant changes /store/S0/[id number].pdf
[2024-05-17] MEDS: RINGERS LACTATED 1000 ML 1,000 ML 75 ML IV (09:10)
[2024-05-17] MEDS: POTASSIUM CHL 10 mEq IVPB 10 MEQ/100 ML BAG 100 MEQ IV ×4 (09:10→16:42)
--- NOTE | 2024-05-17 10:54 | PC.SS ---
Follow up note: Consulting Nephro. Pt is still vomiting and having diarrhea. Pt is possible SNF vs home.
--- NOTE | 2024-05-17 10:55 | XR_ITS ---
Examination: MRI of brain without intravenous contrast. MRI brain with intravenous contrast. Date and time of exam:May 17, 2024 1228 hours INDICATIONS: Horizontal mass diagnosed, dipropionate, nausea vomiting, dizziness, 2 weeks Technique: Multiple axial and sagittal images of the brain to been obtained. Siemens high-resolution 1.52 Shannon short bore scanner utilized. Sagittal sections, T1 weighted images, TR 500, TE 14, are performed. Axial sections proton-density and T2-weighted images have been obtained. Inversion recovery axial images, TR 9260, TE 111, TR 2500. Diffusion weighted images, axial sections, TR 4800, TE 128, B value 1000. Axial sections, ADC map, TR 4800, TE 128. Axial and coronal images were also obtained post 19 cc gadolinium administered intravenously. Findings:: Enlargement of the sella turcica is not present. The optic chiasm and infundibular stalk are not remarkable. There is no localized enlargement of the medulla or chris. Fourth ventricle and cerebellar tonsils appear normal in position. No subacute area of hemorrhage density is seen. Fourth ventricle is midline. Mass in the cerebellopontine angle region is not evident. 7th and 8th nerve complexes exhibit symmetry Globes are symmetrical Orbital musculature including medial lateral rectus muscles do not exhibit abnormality Increased white matter signal is evident, subtle scattered punctate foci increased signal on the FLAIR images in the frontal white matter Effacement of the cortical sulcal markings is not identified. Mass effect upon the ventricular system is not identified. Diffusion-weighted images demonstrate no focus of restricted diffusion Contrast images demonstrate no abnormal enhancement Impression: Scattered punctate foci increased signal in the frontal white matter, demyelinating disease pattern
[2024-05-17] MEDS: DEXTROSE 5%-LACTATED RINGERS 1,000 ML 100 ML IV (11:43)
[2024-05-17] MEDS: SODIUM BICARB INJ 8.4% 1 mEq/ML VIAL 50 ML 50 MEQ IV (11:44)
[2024-05-17 14:00] LABS: Vitamin B12 1423 pg/mL (211-911)
--- NOTE | 2024-05-17 14:47 | ESPR_ITS ---
<Statement entered by Иван Boland MD - 05/17/24 15:18> Patient was seen and examined at bedside. Patient reported that she had 6 episodes of diarrhea last night. She also complained of another episode of vomiting. We started the patient on IV fluid maintenance 100 mL of Ringer lactate and D5. Patient still acidotic most likely secondary to starvation ketosis. Will also putting in consideration that the patient might have RTA, we started the patient on bicarb x 1, by tomorrow if the patient metabolic status did not improve we might consult nephrology. We also planning to rule out any [employer] pathology, CT scan was done and it was negative however we talk to the neurologist Dr Hernandez and she recommended to do an MRI of the brain with and without contrast and also to measure vitamin B-12 level. At this time most likely diagnosis is gastroparesis however trying to rule out other possible causes. - Patient's plan and care discussed with my attending, Dr. Elizabeth Boland MD Internal Medicine PGY-2 Documentation for date of: 05/17/24 Subjective Subjective Interval history: Patient examined at bedside today. Says that she vomited 4 times, nonbloody overnight. Says that she has had diarrhea that started yesterday, 6 episodes. She still would like to drink water, but has not been able to tolerate anything else. No other complaints at this time Exam Vital Signs Temp Pulse Resp BP Pulse Ox O2 Del Method 97.1 F 93 18 111/68 98 Room Air 05/17/24 11:46 05/17/24 12:00 05/17/24 11:46 05/17/24 11:46 05/17/24 11:46 05/17/24 11:46 Narrative Exam General: AAOx3, NAD, HEENT: Dry mucous membranes, conjunctiva clear, EOMI, PERRLA, Cardiovascular: S1, S2, radial pulses +2 bilat, RRR Pulmonary: CTAB bilat no cough, no wheezing GI: Slight tenderness to light palpitation, no guarding, rigidity, rebound tenderness or distension, bowel sounds present Extremities: No presence of trace or pitting edema in lower extremities bilaterally, dorsalis pedis pulses +2 bilaterally Neuro: Some horizontal nystagmus with eye movements bilat, AAOx3 Psych: Good judgement, thought and behavior. Cooperative Objective Labs 05/17/24 04:17 05/17/24 04:17 Labs: Laboratory Results - last 24 hr 05/16/24 05/16/24 05/17/24 15:39 22:26 04:17 WBC 4.7 RBC 3.66 L Hgb 10.6 L Hct 31.0 L MCV 85 MCH 29.0 MCHC 34.2 RDW Std Deviation 54.6 H Plt Count 225 Neut % (Auto) 47 Lymph % (Auto) 26 Wolfe % (Auto) 18 H Eos % (Auto) 8 Baso % (Auto) 1 Neut # (Auto) 2.2 Lymph # (Auto) 1.3 Wolfe # (Auto) 0.8 Eos # (Auto) 0.4 Baso # (Auto) 0.0 Immature Gran # (Auto) 0.03 H Absolute Nucleated RBC 0.00 Immature Gran % 1 H Nucleated RBC % 0 Sodium 134 L 136 137 Potassium 2.9 L D 2.8 L 3.1 L Chloride 104 106 107 Carbon Dioxide 17.2 L 18.6 L 17.5 L Anion Gap 13 11 13 BUN < 5 L < 5 L < 5 L Creatinine 0.6 0.6 0.6 Estim Creat Clear Calc 113.9 113.9 113.9 eGFR > 60 > 60 > 60 BUN/Creatinine Ratio 8 L 8 L 8 L Glucose 89 86 88 Calculated Osmolality 264 L 268 L 270 L Calcium 8.3 8.6 8.8 Corrected Calcium 9.0 9.3 9.8 Phosphorus 2.9 2.7 2.4 Magnesium 1.9 Total Bilirubin 0.8 AST 34 ALT 14 Alkaline Phosphatase 49 Total Protein 5.2 L Albumin 3.1 L 3.1 L 2.8 L Globulin 2.4 Albumin/Globulin Ratio 1.2 Lipase 98 H D Vitamin B12 05/17/24 13:14 WBC RBC Hgb Hct MCV MCH MCHC RDW Std Deviation Plt Count Neut % (Auto) Lymph % (Auto) Wolfe % (Auto) Eos % (Auto) Baso % (Auto) Neut # (Auto) Lymph # (Auto) Wolfe # (Auto) Eos # (Auto) Baso # (Auto) Immature Gran # (Auto) Absolute Nucleated RBC Immature Gran % Nucleated RBC % Sodium Potassium Chloride Carbon Dioxide Anion Gap BUN Creatinine Estim Creat Clear Calc eGFR BUN/Creatinine Ratio Glucose Calculated Osmolality Calcium Corrected Calcium Phosphorus Magnesium Total Bilirubin AST ALT Alkaline Phosphatase Total Protein Albumin Globulin Albumin/Globulin Ratio Lipase Vitamin B12 1423 H ABG Interpretation ABG results: 05/14/24 05/15/24 17:25 16:48 VBG pH 7.49 7.39 VBG pCO2 21 L 28 L VBG pO2 35 43 VBG Base Excess -5 L -7 L Quality Measures Quality Measures none Assessment & Plan Assessment Current Active Medications: Generic Name Dose Route Start Last Admin Trade Name Freq PRN Reason Stop Dose Admin Acetaminophen 650 mg 05/15/24 18:27 05/16/24 04:01 Acetaminophen 325 Mg Tablet PO 06/14/24 18:26 650 mg Q4HR PRN Administration Fever >101 or pain 1-3 Dextrose 25 ml 05/15/24 05:02 Dextrose 50%-Water Inj 50 Ml Syringe IV 06/14/24 05:01 Q15MIN PRN BG 50-70 responsive npo pt Dextrose 50 ml 05/15/24 05:02 Dextrose 50%-Water Inj 50 Ml Syringe IV 06/14/24 05:01 Q15MIN PRN BG <50 OR BG <70 & pt unresponsive Glucagon 1 mg 05/15/24 05:02 Glucagon Inj 1 Mg Vial IM Q15MIN PRN BG <70, and no IV access Heparin Sodium (Porcine) 5,000 unit 05/15/24 09:00 05/17/24 08:40 Heparin Sod Inj 5000 Unit/Ml Vial SC 05/29/24 08:59 5,000 unit Q12HR MEGAN Administration Erythromycin Lactobionate 250 100 mls @ 100 mls/hr 05/15/24 09:00 05/17/24 12:13 mg/ Sodium Chloride IV 05/22/24 08:59 100 mls/hr Q6HR MEGAN Administration Dextrose/Lactated Ringer's 1,000 mls @ 100 mls/hr 05/17/24 09:45 05/17/24 11:43 D5-Lr IV 06/16/24 09:44 100 mls/hr .Q10H MEGAN Administration Insulin Human Regular 0 unit 05/15/24 21:00 05/17/24 11:44 Insulin Hum Regular 1 Unit/0.01 Ml (Per Unit) SC 06/14/24 20:59 Not Given ACHS [facility] Protocol Levothyroxine Sodium 50 mcg 05/15/24 12:30 05/17/24 08:40 Levothyroxine Inj 100 Mcg Vial IV 06/14/24 12:29 50 mcg QAM MEGAN Administration Metoclopramide HCl 10 mg 05/15/24 06:00 05/17/24 13:53 Metoclopramide Inj 5 Mg/Ml Vial 2 Ml IVP 06/14/24 05:59 10 mg Q8HR MEGAN Administration Protocol Metoclopramide HCl 5 mg 05/15/24 18:28 05/17/24 03:54 Metoclopramide Inj 5 Mg/Ml Vial 2 Ml IVP 06/14/24 18:29 5 mg Q6HR PRN Administration vomiting Protocol Pantoprazole Sodium 40 mg 05/15/24 09:00 05/17/24 08:41 Pantoprazole Inj 40 Mg Vial IVP 06/14/24 08:59 40 mg Q12HR MEGAN Administration Polyethylene Glycol 17 gm 05/15/24 09:00 05/17/24 09:09 Polyethylene Glycol 17 Gm Packet PO 06/14/24 08:59 Not Given DAILY MEGAN Plan Assessment The patient is a 59-year-old female with a past medical history of hypertension, diabetes, hypothyroidism and hyperlipidemia who presented to the ED on 05/14/2024 with abdominal pain, nausea and vomiting that has persisted over the last 2 months. The patient has been admitted for management of intractable nausea and vomiting, starvation ketosis. #Intractable nausea and vomiting with severe dehydration #Anion gap metabolic acidosis #Starvation ketosis The patient presented with a 2-month history of nausea and vomiting, states that she has been unable to keep food or drinks as well as p.o. meds down. She was admitted about a month ago with similar symptoms. At that time, gastric emptying scan was attempted but could not be completed as patient vomited contrast. GI Dr. Reardon was consulted and patient had an upper endoscopy done which showed esophagitis and gastritis, confirmed with pathology-no malignancy. Patient was discharged on erythromycin with that she has been unable to take any of her p.o. meds as she still had persistent nausea and vomiting. ED, labs are significant for hypokalemia, metabolic acidosis with anion gap of 18 glucose 104. Patient received approximately 2.7 L of NS in the ED. Will hold on IV fluid maintenance at this time and see how patient tolerates clear liquid Cannot give a gastric emptying setting considering patient has got Reglan Will hold off on scanning patient's belly at this time since patient is a bit dehydrated Will hold on scanning patient's head for possible mass effect causing recurrent nausea and vomiting Pt will need outpatient GI follow up Considering patient's poor oral intake, will need to be on fluids Plan: ?GI consulted, appreciate recs ?LR/D5 100 cc an hour ?Reglan every 8 hours ?Erythromycin 250 every 6 hours ?Zofran x 1 ?Clear liquid diet ?Protonix 40 mg twice daily #Horizontal nystagmus, bilateral #Blurry vision Patient could be experiencing nystagmus due to numerous antiemetics she has received Could have underlying autonomic dysfunction that is the cause of the symptoms above and also these new symptoms Patient could also be having blurry vision due to poor oral intake Head CT negative for acute hemorrhage, ischemia, mass effect Considering patient has nystagmus, will want to consult neurology for additional opinion and get the brain MRI Plan: ?*Neuroconsult ?*Brain MRI with and without contrast #Electrolyte abnormalities #Hypokalemia secondary to #GI losses #Diarrhea Will administer IV replenishment as patient cannot tolerate p.o. Serum Potassium 2.4 Urine lytes unremarkable Patient has gone over 150 mill equivalents of potassium Diarrhea could be due to large amounts of antiemetics Plan: ?Replete as needed ? Repeat BMP at 4:00 today ?Treat as above with antiemetics #History of dermoid cyst Diagnosed on previous admission, did not get transvaginal ultrasound Hyperechoic mass noted avascular in the region of the uterus 6.0 x 6.2 x 6.4 cm Unsure if this may be related to patient's nausea and vomiting, but will workup at this time Beta-Hcg and tumor markers unremarkable Plan: - Will hold on further workup #History of diabetes Patient has a history of diabetes, recently diagnosed in February. A1c on last admission in March was 10.3. Patient reports that she has not been taking any medications including insulin and her blood sugars have been within control, highest value has been 146. A1c today-6.8% Plan: -Monitor blood sugar closely and commence ISS if needed -Keep blood sugar within goal 140-1 80 -Hypoglycemic protocols in place #History of hypothyroidism The patient takes levothyroxine 125 mcg daily. Due to nausea and vomiting she has not taken consistently over the past 2 months. TSH: 125; Free T4: 0.47 Will replete with IV Synthroid (home dose 75 mcg) as patient cannot tolerate p.o. Plan: ?Synthroid 50 mcg IV daily #Health Maintenance Disposition: Med telemetry DVT prophylaxis: Heparin GI prophylaxis: Protonix Diet: Clear liquid CODE STATUS: Full Patient seen and care discussed with my senior resident, Dr. Boland , and my attending physician, Dr. Elizabeth Solorio, PGY-1 Attending Provider Attestation/Addendum I have discussed and was present for the essential components of the history, physical examination, diagnosis, and treatment plan with the resident. I agree with the patient's care as documented by the resident and amended herein by me. Rogelio Johnson, DO. Although this document has been carefully reviewed, there may still be some phonetic and other typographical errors. These errors are purely grammatical due to imperfections in the software program and should not be construed in any way to compromise the substance of the patient's medical care during this visit.
[2024-05-17] MEDS: RINGERS LACTATED 1000 ML 1,000 ML 999 ML IV (14:55)
--- NOTE | 2024-05-17 18:45 | PC.NURSE ---
Dr. Hernandez at bedside
[2024-05-17 19:38] LABS: Anion Gap 10 (7-16); BUN/Creatinine Ratio 8 Ratio (12-20); Blood Urea Nitrogen < 5 mg/dL (9-23); Calcium 8.6 mg/dL (8.3-10.6); Chloride 107 mMol/L (98-107); Creatinine (Component) 0.6 mg/dL (0.6-1.3); Estimated Creatinine Clearance 113.9 mL/min (>60); Glucose 138 mg/dL (74-106); Osmolality,Calculated 274 (275-295); Sodium 138 mMol/L (136-145); eGFR > 60 See Note
--- NOTE | 2024-05-17 20:11 | ESPR_ITS ---
Documentation for date of: 05/17/24 Subjective Subjective Interval history: Vomited 3-4 times Not able to tolerate food will add promethazine to the current schedule of metoclopramide and erythromycin Exam Vital Signs Temp Pulse Resp BP Pulse Ox O2 Del Method 97 F 94 19 116/62 97 Room Air 05/17/24 20:00 05/17/24 20:00 05/17/24 20:00 05/17/24 20:00 05/17/24 20:00 05/17/24 20:00 Objective Labs 05/17/24 04:17 05/17/24 19:11 Labs: Laboratory Results - last 24 hr 05/16/24 05/17/24 05/17/24 22:26 04:17 13:14 WBC 4.7 RBC 3.66 L Hgb 10.6 L Hct 31.0 L MCV 85 MCH 29.0 MCHC 34.2 RDW Std Deviation 54.6 H Plt Count 225 Neut % (Auto) 47 Lymph % (Auto) 26 Placer % (Auto) 18 H Eos % (Auto) 8 Baso % (Auto) 1 Neut # (Auto) 2.2 Lymph # (Auto) 1.3 Placer # (Auto) 0.8 Eos # (Auto) 0.4 Baso # (Auto) 0.0 Immature Gran # (Auto) 0.03 H Absolute Nucleated RBC 0.00 Immature Gran % 1 H Nucleated RBC % 0 Sodium 136 137 Potassium 2.8 L 3.1 L Chloride 106 107 Carbon Dioxide 18.6 L 17.5 L Anion Gap 11 13 BUN < 5 L < 5 L Creatinine 0.6 0.6 Estim Creat Clear Calc 113.9 113.9 eGFR > 60 > 60 BUN/Creatinine Ratio 8 L 8 L Glucose 86 88 Calculated Osmolality 268 L 270 L Calcium 8.6 8.8 Corrected Calcium 9.3 9.8 Phosphorus 2.7 2.4 Magnesium 1.9 Total Bilirubin 0.8 AST 34 ALT 14 Alkaline Phosphatase 49 Total Protein 5.2 L Albumin 3.1 L 2.8 L Globulin 2.4 Albumin/Globulin Ratio 1.2 Vitamin B12 1423 H 05/17/24 19:11 WBC RBC Hgb Hct MCV MCH MCHC RDW Std Deviation Plt Count Neut % (Auto) Lymph % (Auto) Placer % (Auto) Eos % (Auto) Baso % (Auto) Neut # (Auto) Lymph # (Auto) Placer # (Auto) Eos # (Auto) Baso # (Auto) Immature Gran # (Auto) Absolute Nucleated RBC Immature Gran % Nucleated RBC % Sodium 138 Potassium 3.0 L Chloride 107 Carbon Dioxide 21.0 Anion Gap 10 BUN < 5 L Creatinine 0.6 Estim Creat Clear Calc 113.9 eGFR > 60 BUN/Creatinine Ratio 8 L Glucose 138 H D Calculated Osmolality 274 L Calcium 8.6 Corrected Calcium Phosphorus Magnesium Total Bilirubin AST ALT Alkaline Phosphatase Total Protein Albumin Globulin Albumin/Globulin Ratio Vitamin B12 Impressions Impression: # Gastrointestinal motility disorder with gastroparesis # Nausea vomiting Add promethazine 6.25 mg IV push every 6 [id number] ABG Interpretation ABG results: 05/14/24 05/15/24 17:25 16:48 VBG pH 7.49 7.39 VBG pCO2 21 L 28 L VBG pO2 35 43 VBG Base Excess -5 L -7 L Assessment & Plan A&P Narrative # Gastric motility disorder with gastroparesis # Hypokalemia Plan IV Reglan 10 mg IV push every 6 Discussed case with internal medicine team Also start the patient on IV erythromycin and consultation with pharmacy I went over the medicine list the patient had at home Regular was not on her list of medications later mostly erythromycin p.o. May be that is the reason she went back into vomiting No need for a repeat endoscopy No need to order the nuclear medicine gastric emptying study as patient will vomit again through the procedure and if no waste of test Thank you once again for the opportunity to participate in care of this patient Time Spent With Patient Time: Total time spent is greater than 50% in coordination of care (as documented) at patient's floor/unit and/or counseling patient:
[2024-05-17] MEDS: PROMETHAZINE INJ 6.25 MG in SODIUM CHLORIDE 0.9% 50 ML 2.5 MG IV (20:46)
--- NOTE | 2024-05-17 22:12 | PC.NURSE ---
The patient's potassium level was reported at 3.0 mmol/L during the evening labs. Dr. Hernandez notified, and no new orders for potassium supplementation were given at this time. advised continuing monitoring of the potassium level and reassessing after the morning labs. The day shift team will be notified for further evaluation and potential intervention as needed.
--- NOTE | 2024-05-17 23:06 | PD.NEUROCONS ---
History of Present Illness Data of Consult Requesting Physician: Eduardo Johnson DO Primary Care Provider: Physician No Primary/Family Consult Narrative History of present illness: Ms. Palumbo is a 59-year-old female with hypertension, diabetes, hypothyroidism and hyperlipidemia who presented to the ER on 05/14/2024 with abdominal pain, nausea and vomiting that has persisted over the last 2 months. In February she was diagnosed with diabetes and was started on Jardiance and metformin. She had intermittent vomiting and nausea which got increased after she started taking this medications. In early March, she presented to the ER and was admitted for starvation ketosis, taken to the ICU for insulin drip, however patient was euglycemic and never required. Patient was subsequently downgraded back to the floor after which she had a gastric emptying study done, however the investigation was not completed because the patient vomited contrast. Dr. Reardon was consulted and EGD was done which showed grade B reflux esophagitis and esophagitis as confirmed by pathology. The patient was then discharged on erythromycin and Reglan, but reports that she has been unable to take either medications as vomiting has persisted. According to her, nothing has particularly changed since discharge and she has had persistence nausea and vomiting still. She denies diarrhea but she has not had a bowel movement for the last 5 days. After admission she started having diarrhea as well. She denies having optic neuritis any time in her life. Workup so far: Labs: WBC 6.8 Hgb 14.1 PLT 284 NA 130 5K2.5 CL 99 bicarb 18.2 anion gap 18 BUN 5 CR 0.9 glucose 104 calcium 10.2 lipase 71 beta hydroxybutyrate 4.6 UA showed 1+ protein 3+ ketones 12 WBC, urine hCG positive. Vitamin B12 level: Very high Venous blood gas: pCO2 of 21 with a base excess of -5. EKG showed sinus rhythm with QTc of 468. The patient received 2.7 L of IV fluids, Zofran and potassium and has been admitted for management of intractable nausea and vomiting/starvation ketosis. Neurology was consulted to evaluate further as the patient started developing nystagmus. cc:: cc: Eduardo Johnson DO Review of Systems Review of Systems Systems Reviewed: All systems reviewed, normal except as documented Past Medical History Past Medical History CARDIAC: Positive Hypercholesterolemia and Hypertension MUSCULOSKELETAL: Positive Rheumatoid Arthritis ENDOCRINE: Positive Diabetes Mellitus Type 2 and Hypothyroidism HEMATOLOGIC: Positive Anemia Social History SMOKING STATUS: Never smoker SUBSTANCE USE: does not use ALCOHOL: Never Meds Home Medications and Allergies Home Medications ?Medication ?Instructions ?Recorded ?Confirmed ?Type hydrochlorothiazide 25 mg tablet 25 mg PO QAM 03/25/24 04/18/24 History levothyroxine 125 mcg tablet 125 mcg PO QDAY 03/25/24 04/18/24 History lovastatin 40 mg tablet 40 mg PO QDAY 03/25/24 04/18/24 History Allergies Allergy/AdvReac Type Severity Reaction Status Date / Time No Known Allergies Allergy Verified 05/14/24 17:08 Exam - Neurology Vital Signs Temp Pulse Resp BP Pulse Ox O2 Del Method 97 F 94 19 116/62 97 Room Air 05/17/24 20:00 05/17/24 20:00 05/17/24 20:00 05/17/24 20:00 05/17/24 20:00 05/17/24 20:00 Narrative Exam GENERAL APPEARANCE: Well hydrated, well-nourished in no acute distress. HEENT: Normocephalic, atraumatic, extraocular movements intact. Pupils: Equal reacting to light and accommodation, horizontal nystagmus noted NECK: Supple, no JVD or bruits. CARDIOVASULAR: Heart: S1, S2 heard, regular without S3-S4 or murmur no rubs or gallops. LUNGS/CHEST: Clear to auscultation bilaterally. No rails, rhonchi, or wheezing. Normal inspection. ABDOMEN: Soft, nontender, with normal bowel sounds. No pulsatile masses. No rebound, rigidity, or guarding. Normal inspection and palpation. EXTREMITIES: Normal inspection and palpation. No edema, clubbing or cyanosis. SKIN: Warm and dry without rashes. Normal inspection. MUSCULOSKELETAL: No cervical, thoracic, lumbar or midline bony tenderness. Normal inspection. NEURO: Alert, awake and oriented x3. Cranial nerves: II through XII grossly intact. Speech and language: Normal with no dysarthria or dysphasia. Motor system: Tone and bulk: Normal: Strength: 5 out of 5 in all 4 extremities; No pronator drift noted. Deep tendon reflexes: 2+ bilaterally symmetrical. Plantar reflex: Downgoing bilaterally. Sensory system: Intact to all modalities of sensation bilaterally. Coordination: Intact to [id number] and [id number] test bilaterally. No ataxia, no dysmetria, or dysdiadochokinesia noted. No intention tremors noted. Gait: Not tested. No signs of meningeal irritation noted. PSYCHIATRIC: Normal mood and affect. Results Labs 05/17/24 04:17 05/17/24 19:11 Labs: Short CBC 05/17/24 Range/Units 04:17 WBC 4.7 (3.6-11.0) Thou/mm3 Hgb 10.6 L (12.0-16.0) g/dL Hct 31.0 L (36.0-46.0) % Plt Count 225 (140-440) Thou/mm3 BMP 05/16/24 05/17/24 05/17/24 22:26 04:17 19:11 Sodium 136 137 138 Potassium 2.8 L 3.1 L 3.0 L Chloride 106 107 107 Carbon Dioxide 18.6 L 17.5 L 21.0 BUN < 5 L < 5 L < 5 L Creatinine 0.6 0.6 0.6 Glucose 86 88 138 H D Calcium 8.6 8.8 8.6 Liver Function 05/16/24 05/17/24 Range/Units 22:26 04:17 Total Bilirubin 0.8 (0.3-1.2) mg/dL AST 34 (0-34) U/L ALT 14 (10-49) U/L Alkaline Phosphatase 49 (46-116) U/L Albumin 3.1 L 2.8 L (3.5-5.0) gm/dL ABG Interpretation ABG results: 05/14/24 05/15/24 17:25 16:48 VBG pH 7.49 7.39 VBG pCO2 21 L 28 L VBG pO2 35 43 VBG Base Excess -5 L -7 L Assessment & Plan Assessment and plan (1) Intractable nausea and vomiting: Status: Acute Assessment and plan: MRI brain did not show any significant white matter changes, not consistent with demyelinating disease. Follow-up with the thiamine level as it could be deficient as she has been having intractable nausea vomiting for a long period of time leading to malabsorption However we can go ahead and order MRI of the C-spine and thoracic spine followed by CSF analysis as neuromyelitis optica spectrum disorder is in the differential diagnosis. (2) Diabetes mellitus type 2, insulin dependent: Status: Acute Assessment and plan: Continue to check fingerstick glucose and follow sliding scale insulin per protocol (3) Hypokalemia: Status: Acute Assessment and plan: Being monitored closely and getting replaced may need to check the magnesium level as well
[2024-05-18] VITALS (8 sets, daily range): BP systolic 97–121; BP diastolic 61–74; PULSE 76–93; RESP 16–98; TEMP 35.9–36.6; O2SAT 95–97; BMI 35.4
[2024-05-18] MEDS: DEXTROSE 5%-LACTATED RINGERS 1,000 ML 100 ML IV ×2 (03:19→23:05)
[2024-05-18] MEDS: PROMETHAZINE INJ 6.25 MG in SODIUM CHLORIDE 0.9% 50 ML 2.5 MG IV ×4 (05:20→23:53)
[2024-05-18] MEDS: ERYTHROMYCIN INJ 250 MG in SODIUM CHLORIDE 0.9% 100 ML 100 MG IV ×4 (05:20→23:53)
[2024-05-18 05:47] LABS: Basophils % (Auto) 1 % (0-2.5); Eosinophils # (Auto) 0.3 Thou/mm3 (0.0-0.5); Eosinophils % (Auto) 9 % (0-10); Hematocrit 31.2 % (36.0-46.0); Hemoglobin 10.9 g/dL (12.0-16.0); Immature Granulocytes % (Auto) 0 % (0-0); Immature Granulocytes Auto 0.01 Thou/mm3 (0.00-0.00); Lymphocytes # (Auto) 1.1 Thou/mm3 (1.0-4.8); Lymphocytes % (Auto) 28 % (10-50); Mean Corpuscular HGB Conc 34.9 g/dl (31.0-37.0); Mean Corpuscular Hemoglobin 29.3 pg (25.0-35.0); Mean Corpuscular Volume 84 fL (80-100); Monocytes # (Auto) 0.8 Thou/mm3 (0.0-0.8); Monocytes % (Auto) 20 % (0-12); Neutrophils # (Auto) 1.6 Thou/mm3 (1.8-7.7); Neutrophils % (Auto) 42 % (37-80); Nucleated Red Blood Cell % 0 /100 WBC (0); Platelet Count 216 Thou/mm3 (140-440); RDW Standard Deviation 54.3 fL (36.4-46.3); Red Blood Count 3.72 Miln/mm3 (4.00-5.20); White Blood Count 3.8 Thou/mm3 (3.6-11.0)
[2024-05-18 06:29] LABS: Alanine Aminotransferase 18 U/L (10-49); Albumin, Serum 2.8 gm/dL (3.5-5.0); Albumin/Globulin Ratio 1.3 (1.2-2.2); Alkaline Phosphatase 51 U/L (46-116); Anion Gap 9 (7-16); Aspartate Amino Transferase 31 U/L (0-34); BUN/Creatinine Ratio 8 Ratio (12-20); Bilirubin,Total 0.8 mg/dL (0.3-1.2); Blood Urea Nitrogen < 5 mg/dL (9-23); Calcium 8.9 mg/dL (8.3-10.6); Calcium (Corrected) 9.9 mg/dL (8.5-10.1); Carbon Dioxide 21.9 mMol/L (20.0-31.0); Chloride 109 mMol/L (98-107); Creatinine (Component) 0.6 mg/dL (0.6-1.3); Estimated Creatinine Clearance 113.9 mL/min (>60); Globulin 2.2 gm/dL (2.3-3.5); Glucose 124 mg/dL (74-106); Magnesium 1.6 mg/dL (1.6-2.6); Osmolality,Calculated 277 (275-295); Phosphorous 2.3 mg/dL (2.4-5.1); Potassium 2.8 mMol/L (3.4-5.1); Sodium 140 mMol/L (136-145); eGFR > 60 See Note
--- NOTE | 2024-05-18 07:43 | PC.NURSE ---
RN made MD aware of K 2.[address]. to [address] orders
[2024-05-18] MEDS: PANTOPRAZOLE INJ 40 MG VIAL IVP ×2 (09:00→21:24)
[2024-05-18] MEDS: LEVOTHYROXINE INJ 100 mCg VIAL 50 MCG IV (09:00)
[2024-05-18] MEDS: HEPARIN SOD INJ 5000 UNIT/ML VIAL SC ×2 (09:06→21:19)
[2024-05-18] MEDS: Magnesium Sulfate 4 GM Ivpb 4 GM/50 ML BAG IV (09:23)
[2024-05-18] MEDS: POTASSIUM CHL 10 mEq IVPB 10 MEQ/100 ML BAG 100 MEQ IV ×4 (09:25→20:47)
[2024-05-18] MEDS: SOD PHOS ADDITIVE 15 MMOL in SODIUM CHLORIDE 0.9% 250 ML 250 ML 62.5 MMOL IV (09:26)
--- NOTE | 2024-05-18 10:22 | PC.DIETICIAN ---
Dietitian recommendation: If alternative nutrition appropriate, initiate Central Parenteral Nutrition: D20% AA 5%@ 70ml/hr with 500ml IL 3x/week / to provide: 1680ml total vol, 1907 total kcal, 336g Dextrose, 84g AA. Start at 30ml/hr x8hrs and increase to 60ml x8 then goal of 70ml/hr. If unable to get central line, start PPN D5% AA 4.25% at 30ml/hr x8hrs, then 60ml/hr x8hrs then 90ml/hr goal rate to provide with 500ml 20% IL 3x/week to provide: 2160ml total vol, 1163total kcal, 92g AA, 108g dextrose If advances to oral diet, add Glucerna BID Thank you
[2024-05-18] MEDS: CITRIC ACID/SODIUM CITR 15 ML UDC (BICITRA) 30 ML PO (12:08)
--- NOTE | 2024-05-18 12:53 | XR_ITS ---
Examination: MRI cervical spine, without intravenous contrast. MRI cervical spine , with intravenous contrast. Exam date and time: May 18, 2024 1705 hrs. Indications: Neck pain months, clinical diagnosis demyelinating disease Technique: Multiple axial, sagittal and coronal images of the cervical spine have been obtained with the Siemens high-resolution 1.5 Shannon MRI scanner. Images obtained included T2 weighted fat suppressed sagittal sections, TR 3500, TE 46, T2 weighted coronal fat suppressed images, TR 3050, TE 84, T2-weighted transverse fat suppressed images, TR 30-60, TE 63, proton density transverse images, TR 4720, TE 46, and T1 weighted coronal images, TR 560, TE 13. Axial, sagittal and coronal images are obtained post intravenous injection 19 cc gadolinium. Findings: Adequate alignment cervical vertebral bodies No cervical fracture Precontrast images do not demonstrate definite abnormal increased signal in the cervical cord Diffuse cervical disc desiccation Mild disc narrowing C5-C6 Axial images demonstrate no significant focal disc protrusion, no impingement upon the cervical cord Postcontrast images demonstrate no abnormal osseous epidural or cervical cord enhancement Impression: Early degenerative disc disease C5-C6 No findings diagnostic for demyelinating disease
--- NOTE | 2024-05-18 12:53 | XR_ITS ---
Examination: MRI thoracic spine, without intravenous contrast. MRI thoracic spine , with intravenous contrast. Exam date and time: May 18, 2024 1702 hrs. Indications: Diagnosis neuromyelitis, neck and back pain one year Technique: Multiple axial, sagittal and coronal images of the thoracic spine have been obtained with the Siemens high-resolution 1.5 Shannon MRI scanner. Images obtained included T2 weighted fat suppressed sagittal sections, TR 3500, TE 46, T2 weighted coronal fat suppressed images, TR 3050, TE 84, T2-weighted transverse fat suppressed images, TR 30-60, TE 63, proton density transverse images, TR 4720, TE 46, and T1 weighted coronal images, TR 560, TE 13. Axial, sagittal and coronal images are obtained post intravenous injection 19 cc gadolinium. Findings: Adequate alignment thoracic vertebral bodies No thoracic fracture Disc desiccation T10, T11 No thoracic fracture There is mild increased signal in the thoracic cord, seen with demyelinating disease No syrinx cavity Axial images demonstrate no focal thoracic disc protrusion Postcontrast images demonstrate no abnormal osseous epidural or thoracic cord enhancement Impression: No thoracic fracture No acquired thoracic spinal stenosis Mild diffuse increased signal in the thoracic cord , seen with demyelinating disease, clinical correlation advised
[2024-05-18] MEDS: METOCLOPRAMIDE INJ 5 MG/ML VIAL 2 ML 10 MG IVP ×2 (13:29→21:27)
--- NOTE | 2024-05-18 14:08 | PD.IMPROG ---
Documentation for date of: 05/18/24 Subjective Subjective Interval history: Some improvement in nausea vomiting since initiation of promethazine Case discussed with the internal medicine team CCK HIDA scan with ejection fraction on Monday Exam Vital Signs Temp Pulse Resp BP Pulse Ox O2 Del Method 97.6 F 90 17 109/73 96 Room Air 05/18/24 12:00 05/18/24 12:00 05/18/24 12:00 05/18/24 12:00 05/18/24 12:00 05/18/24 12:00 Objective Labs 05/19/24 04:44 05/19/24 04:44 Labs: Laboratory Results - last 24 hr 05/17/24 05/18/24 19:11 04:50 WBC 3.8 RBC 3.72 L Hgb 10.9 L Hct 31.2 L MCV 84 MCH 29.3 MCHC 34.9 RDW Std Deviation 54.3 H Plt Count 216 Neut % (Auto) 42 Lymph % (Auto) 28 [place] % (Auto) 20 H Eos % (Auto) 9 Baso % (Auto) 1 Neut # (Auto) 1.6 L Lymph # (Auto) 1.1 [place] # (Auto) 0.8 Eos # (Auto) 0.3 Baso # (Auto) 0.0 Immature Gran # (Auto) 0.01 H Absolute Nucleated RBC 0.00 Immature Gran % 0 Nucleated RBC % 0 Sodium 138 140 Potassium 3.0 L 2.8 L Chloride 107 109 H Carbon Dioxide 21.0 21.9 Anion Gap 10 9 BUN < 5 L < 5 L Creatinine 0.6 0.6 Estim Creat Clear Calc 113.9 113.9 eGFR > 60 > 60 BUN/Creatinine Ratio 8 L 8 L Glucose 138 H D 124 H Calculated Osmolality 274 L 277 Calcium 8.6 8.9 Corrected Calcium 9.9 Phosphorus 2.3 L Magnesium 1.6 Total Bilirubin 0.8 AST 31 ALT 18 Alkaline Phosphatase 51 Total Protein 5.0 L Albumin 2.8 L Globulin 2.2 L Albumin/Globulin Ratio 1.3 Impressions Impression: # Gastric motility disorder # gastroparesis Continue current management ABG Interpretation ABG results: 05/14/24 05/15/24 17:25 16:48 VBG pH 7.49 7.39 VBG pCO2 21 L 28 L VBG pO2 35 43 VBG Base Excess -5 L -7 L Assessment & Plan A&P Narrative # Gastric motility disorder with gastroparesis # Hypokalemia Plan IV Reglan 10 mg IV push every 6 Discussed case with internal medicine team Also start the patient on IV erythromycin and consultation with pharmacy I went over the medicine list the patient had at home Regular was not on her list of medications later mostly erythromycin p.o. May be that is the reason she went back into vomiting No need for a repeat endoscopy No need to order the nuclear medicine gastric emptying study as patient will vomit again through the procedure and if no waste of test Thank you once again for the opportunity to participate in care of this patient Time Spent With Patient Time: Total time spent is greater than 50% in coordination of care (as documented) at patient's floor/unit and/or counseling patient:
--- NOTE | 2024-05-18 14:58 | ESPR_ITS ---
Documentation for date of: 05/18/24 Subjective Subjective Interval history: Patient reports 6 episodes of diarrhea/soft stool overnight and one episode of vomiting. Pt denies knoweldge of having HIDA scan or H.pylori testing before. Patient also reports history of lower back pain. No radiation of back pain down legs or incontinence/saddle anesthesia. Patient states that she had an MRI of her back around 2 years ago and it was supposed to have surgery. She requests that if we are MRI and her spine that we include her lumbar. Patient seen in afternoon and reports dry heaving but no vomiting. She also reports two more episodes of vomiting. She believes its from the erythromycin. She had diarrhea last time she was in the hospital too. Exam Vital Signs Temp Pulse Resp BP Pulse Ox O2 Del Method 97.6 F 91 18 109/73 96 Room Air 05/18/24 12:00 05/18/24 14:12 05/18/24 14:12 05/18/24 12:00 05/18/24 12:00 05/18/24 12:00 Narrative Exam General: AAOx3, NAD, HEENT: Dry mucous membranes, conjunctiva clear, EOMI, PERRLA, Cardiovascular: S1, S2, radial pulses +2 bilat, RRR Pulmonary: CTAB bilat no cough, no wheezing GI: Slight tenderness to light palpitation in epigastric region, no guarding, rigidity, rebound tenderness or distension Extremities: No presence of trace or pitting edema in lower extremities bilaterally, dorsalis pedis pulses +2 bilaterally Neuro: horizontal nystagmus with eye movements bilat, AAOx3 Psych: Good judgement, thought and behavior. Cooperative Objective Labs 05/24/24 07:51 05/24/24 09:38 Labs: Laboratory Results - last 24 hr 05/17/24 05/18/24 19:11 04:50 WBC 3.8 RBC 3.72 L Hgb 10.9 L Hct 31.2 L MCV 84 MCH 29.3 MCHC 34.9 RDW Std Deviation 54.3 H Plt Count 216 Neut % (Auto) 42 Lymph % (Auto) 28 [place] % (Auto) 20 H Eos % (Auto) 9 Baso % (Auto) 1 Neut # (Auto) 1.6 L Lymph # (Auto) 1.1 [place] # (Auto) 0.8 Eos # (Auto) 0.3 Baso # (Auto) 0.0 Immature Gran # (Auto) 0.01 H Absolute Nucleated RBC 0.00 Immature Gran % 0 Nucleated RBC % 0 Sodium 138 140 Potassium 3.0 L 2.8 L Chloride 107 109 H Carbon Dioxide 21.0 21.9 Anion Gap 10 9 BUN < 5 L < 5 L Creatinine 0.6 0.6 Estim Creat Clear Calc 113.9 113.9 eGFR > 60 > 60 BUN/Creatinine Ratio 8 L 8 L Glucose 138 H D 124 H Calculated Osmolality 274 L 277 Calcium 8.6 8.9 Corrected Calcium 9.9 Phosphorus 2.3 L Magnesium 1.6 Total Bilirubin 0.8 AST 31 ALT 18 Alkaline Phosphatase 51 Total Protein 5.0 L Albumin 2.8 L Globulin 2.2 L Albumin/Globulin Ratio 1.3 ABG Interpretation ABG results: 05/14/24 05/15/24 17:25 16:48 VBG pH 7.49 7.39 VBG pCO2 21 L 28 L VBG pO2 35 43 VBG Base Excess -5 L -7 L Quality Measures Quality Measures none Assessment & Plan Assessment Current Active Medications: Generic Name Dose Route Start Last Admin Trade Name Freq PRN Reason Stop Dose Admin Acetaminophen 650 mg 05/15/24 18:27 05/16/24 04:01 Acetaminophen 325 Mg Tablet PO 06/14/24 18:26 650 mg Q4HR PRN Administration Fever >101 or pain 1-3 Citric Acid/Sodium Citrate 30 ml 05/18/24 09:30 05/18/24 12:08 Citric Acid/Sodium Citr 15 Ml Udc (Bicitra) PO 06/17/24 09:29 30 ml BID MEGAN Administration Dextrose 25 ml 05/15/24 05:02 Dextrose 50%-Water Inj 50 Ml Syringe IV 06/14/24 05:01 Q15MIN PRN BG 50-70 responsive npo pt Dextrose 50 ml 05/15/24 05:02 Dextrose 50%-Water Inj 50 Ml Syringe IV 06/14/24 05:01 Q15MIN PRN BG <50 OR BG <70 & pt unresponsive Glucagon 1 mg 05/15/24 05:02 Glucagon Inj 1 Mg Vial IM Q15MIN PRN BG <70, and no IV access Heparin Sodium (Porcine) 5,000 unit 05/15/24 09:00 05/18/24 09:06 Heparin Sod Inj 5000 Unit/Ml Vial SC 05/29/24 08:59 5,000 unit Q12HR MEGAN Administration Erythromycin Lactobionate 250 100 mls @ 100 mls/hr 05/15/24 09:00 05/18/24 13:28 mg/ Sodium Chloride IV 05/22/24 08:59 100 mls/hr Q6HR MEGAN Administration Dextrose/Lactated Ringer's 1,000 mls @ 100 mls/hr 05/17/24 09:45 05/18/24 03:19 D5-Lr IV 06/16/24 09:44 100 mls/hr .Q10H MEGAN Administration Promethazine HCl 6.25 mg/ 50.25 mls @ 2.5 mls/min 05/17/24 20:30 05/18/24 12:13 Sodium Chloride IV 06/16/24 20:29 2.5 mls/min Q6HR MEGAN Administration Insulin Human Regular 0 unit 05/15/24 21:00 05/18/24 12:10 Insulin Hum Regular 1 Unit/0.01 Ml (Per Unit) SC 06/14/24 20:59 Not Given ACHS MEGAN Protocol Levothyroxine Sodium 50 mcg 05/15/24 12:30 05/18/24 09:00 Levothyroxine Inj 100 Mcg Vial IV 06/14/24 12:29 50 mcg QAM MEGAN Administration Metoclopramide HCl 10 mg 05/15/24 06:00 05/18/24 13:29 Metoclopramide Inj 5 Mg/Ml Vial 2 Ml IVP 06/14/24 05:59 10 mg Q8HR MEGAN Administration Protocol Metoclopramide HCl 5 mg 05/15/24 18:28 05/17/24 03:54 Metoclopramide Inj 5 Mg/Ml Vial 2 Ml IVP 06/14/24 18:29 5 mg Q6HR PRN Administration vomiting Protocol Pantoprazole Sodium 40 mg 05/15/24 09:00 05/18/24 09:00 Pantoprazole Inj 40 Mg Vial IVP 06/14/24 08:59 40 mg Q12HR MEGAN Administration Plan The patient is a 59-year-old female with a past medical history of hypertension, diabetes, hypothyroidism and hyperlipidemia who presented to the ED on 05/14/2024 with abdominal pain, nausea and vomiting that has persisted over the last 2 months. The patient has been admitted for management of intractable nausea and vomiting, starvation ketosis. #Intractable nausea and vomiting with severe dehydration #Anion gap metabolic acidosis #Starvation ketosis The patient presented with a 2-month history of nausea and vomiting, states that she has been unable to keep food or drinks as well as p.o. meds down. She was admitted about a month ago with similar symptoms. At that time, gastric emptying scan was attempted but could not be completed as patient vomited contrast. GI Dr. Reardon was consulted and patient had an upper endoscopy done which showed esophagitis and gastritis, confirmed with pathology-no malignancy. Patient was discharged on erythromycin with that she has been unable to take any of her p.o. meds as she still had persistent nausea and vomiting. ED, labs are significant for hypokalemia, metabolic acidosis with anion gap of 18 glucose 104. Patient received approximately 2.7 L of NS in the ED. No history of HIDA scan, possible biliary dyskinesia H.Pylori negative Plan: ?GI consulted, appreciate recs ?LR/D5 100 cc an hour ?Reglan 10mg IV every 8 hours ?Erythromycin 250mg IV every 6 hours -Promethazine 6.25mg IV q 6hr ?Zofran x 1 ?Clear liquid diet ?Protonix 40 mg twice daily -HIDA scan #Horizontal nystagmus, bilateral #Blurry vision Patient could be experiencing nystagmus due to numerous antiemetics she has received Could have underlying autonomic dysfunction that is the cause of the symptoms above and also these new symptoms Patient could also be having blurry vision due to poor oral intake Head CT negative for acute hemorrhage, ischemia, mass effect MRI shows scattered punctate foci in frontal white matter, neuro not concerned for demyelinating pattern Neuro recommends MRI of the C/T-spine to rule out neuromyelitis optica spectrum disorder Plan: ?Neuroconsult, appreciate recommendations ?C-spine, T-spine MRI per Neuro, patient complains of back pain and hx of needing back surgery that was never performed. Adding on L-spine -CSF analysis #Electrolyte abnormalities #Hypokalemia secondary to #GI losses #Diarrhea Will administer IV replenishment as patient cannot tolerate p.o. Serum Potassium 2.8 Urine lytes unremarkable Patient has received over 200mEq of potassium Diarrhea could be due to large amounts of antiemetics/gastric motility Plan: ?Replete as needed ?Treat as above with antiemetics #History of dermoid cyst Diagnosed on previous admission, did not get transvaginal ultrasound Hyperechoic mass noted avascular in the region of the uterus 6.0 x 6.2 x 6.4 cm Unsure if this may be related to patient's nausea and vomiting, but will workup at this time Beta-Hcg and tumor markers unremarkable Plan: - Will hold on further workup #History of diabetes Patient has a history of diabetes, recently diagnosed in February. A1c on last admission in March was 10.3. Patient reports that she has not been taking any medications including insulin and her blood sugars have been within control, highest value has been 146. A1c today-6.8% Plan: -Monitor blood sugar closely and commence ISS if needed -Keep blood sugar within goal 140-1 80 -Hypoglycemic protocols in place #History of hypothyroidism The patient takes levothyroxine 125 mcg daily. Due to nausea and vomiting she has not taken consistently over the past 2 months. TSH: 125; Free T4: 0.47 Will replete with IV Synthroid (home dose 75 mcg) as patient cannot tolerate p.o. Plan: ?Synthroid 50 mcg IV daily #Health Maintenance Disposition: Med telemetry DVT prophylaxis: Heparin GI prophylaxis: Protonix Diet: Clear liquid CODE STATUS: Full The patient's plan was discussed with attending Dr. Denis and senior resident Dr. Susan Laguna, PGY1 Internal Medicine Senior resident attestation: Patient reported 1 episode of vomiting and multiple episodes of diarrhea overnight. Still feeling nauseous and dry heaves. Currently on Reglan and erythromycin. #Malnutrition: Dietitian recommended starting the patient on TPN with a central line or PPN for nutritional support. Currently on D5 LR nutritional support. #Hypokalemia: Associated with metabolic acidosis, replete as indicated. The patient is requiring excessive amounts of IV K replacement for severe hypokalemia. #Hypomagnesemia: The patient has multiple electrolyte abnormalities, including refractory hypokalemia, hypomagnesemia requiring IV replacement. #Metabolic acidosis: Hypokalemia associated with metabolic acidosis, concern for renal tubular acidosis, urine anion gap negative, possible RTA type I, metabolic acidosis improved after multiple administration, added Bicitra, consider nephrology consult. #Concern for demyelinating disorder: Clinical exam findings concerning for horizontal nystagmus and diplopia. Brain MRI concerning for demyelinating disorder, neurology recommended getting MRI cervical and thoracic spine and possible lumbar puncture for CSF analysis. Will reach out to neurologist Dr Hernandez on after MRI findings. #Intractable nausea/vomiting: Gastroenterology following the patient, for EGD evaluation and biopsy negative for H. pylori, and ordered HIDA scan to rule out biliary disorder. Continue with IV Reglan and IV erythromycin. #Diarrhea: Possibly secondary to medication. #Diabetes mellitus: On sensitive insulin sliding scale, due to poor p.o. intake. Patient evaluated and examined at the bedside, plan of care discussed with rest of the team including my attending physician, except as noted. Susan PGY2 Attending Provider Attestation/Addendum 59-year-old female with multiple comorbidities including hypertension, hyperlipidemia, type 2 diabetes mellitus who presented to the ER or 05/14/2024 for intractable nausea and vomiting requiring prolonged hospitalization as patient failed multiple antiemetic therapies and workup including EGD all of which have been inconclusive. Of note, patient underwent lumbar MRI with findings of possible epidural abscesses and discussed with [facility] and [facility] neurosurgeon however did not recommend transfer recommended conservative management. I reviewed above note and agree with findings and plans. I have also personally examined the patient with medicine team and went over assessment and plan with medical team including marketing research intern and resident physician.
[2024-05-18 16:45] LABS: Anion Gap 10 (7-16); BUN/Creatinine Ratio 8 Ratio (12-20); Blood Urea Nitrogen < 5 mg/dL (9-23); Calcium 8.6 mg/dL (8.3-10.6); Chloride 109 mMol/L (98-107); Creatinine (Component) 0.6 mg/dL (0.6-1.3); Estimated Creatinine Clearance 113.9 mL/min (>60); Glucose 118 mg/dL (74-106); Osmolality,Calculated 279 (275-295); Potassium 2.9 mMol/L (3.4-5.1); Sodium 141 mMol/L (136-145); eGFR > 60 See Note
--- NOTE | 2024-05-18 18:52 | PD.NEUROPROG ---
Documentation for date of: 05/18/24 Subjective Subjective Interval history: Ms. Palumbo was seen in [facility] today, doing little better as the nausea and vomiting are controlled with Phenergan. Exam - Neurology Vital Signs Temp Pulse Resp BP Pulse Ox O2 Del Method 97.5 F 89 16 121/61 95 Room Air 05/18/24 16:00 05/18/24 16:00 05/18/24 16:00 05/18/24 16:00 05/18/24 16:00 05/18/24 16:00 Narrative Exam GENERAL APPEARANCE: Well hydrated, well-nourished in no acute distress. HEENT: Normocephalic, atraumatic, extraocular movements intact. Pupils: Equal reacting to light and accommodation, horizontal nystagmus noted NECK: Supple, no JVD or bruits. CARDIOVASULAR: Heart: S1, S2 heard, regular without S3-S4 or murmur no rubs or gallops. LUNGS/CHEST: Clear to auscultation bilaterally. No rails, rhonchi, or wheezing. Normal inspection. ABDOMEN: Soft, nontender, with normal bowel sounds. No pulsatile masses. No rebound, rigidity, or guarding. Normal inspection and palpation. EXTREMITIES: Normal inspection and palpation. No edema, clubbing or cyanosis. SKIN: Warm and dry without rashes. Normal inspection. MUSCULOSKELETAL: No cervical, thoracic, lumbar or midline bony tenderness. Normal inspection. NEURO: Alert, awake and oriented x3. Cranial nerves: II through XII grossly intact. Speech and language: Normal with no dysarthria or dysphasia. Motor system: Tone and bulk: Normal: Strength: 5 out of 5 in all 4 extremities; No pronator drift noted. Deep tendon reflexes: 2+ bilaterally symmetrical. Plantar reflex: Downgoing bilaterally. Sensory system: Intact to all modalities of sensation bilaterally. Coordination: Intact to [id number] and [id number] test bilaterally. No ataxia, no dysmetria, or dysdiadochokinesia noted. No intention tremors noted. Gait: Not tested. No signs of meningeal irritation noted. PSYCHIATRIC: Normal mood and affect. Objective Labs 05/19/24 04:44 05/19/24 17:58 Labs: Laboratory Results - last 24 hr 05/17/24 05/18/24 05/18/24 19:11 04:50 16:23 WBC 3.8 RBC 3.72 L Hgb 10.9 L Hct 31.2 L MCV 84 MCH 29.3 MCHC 34.9 RDW Std Deviation 54.3 H Plt Count 216 Neut % (Auto) 42 Lymph % (Auto) 28 [place] % (Auto) 20 H Eos % (Auto) 9 Baso % (Auto) 1 Neut # (Auto) 1.6 L Lymph # (Auto) 1.1 [place] # (Auto) 0.8 Eos # (Auto) 0.3 Baso # (Auto) 0.0 Immature Gran # (Auto) 0.01 H Absolute Nucleated RBC 0.00 Immature Gran % 0 Nucleated RBC % 0 Sodium 138 140 141 Potassium 3.0 L 2.8 L 2.9 L Chloride 107 109 H 109 H Carbon Dioxide 21.0 21.9 22.0 Anion Gap 10 9 10 BUN < 5 L < 5 L < 5 L Creatinine 0.6 0.6 0.6 Estim Creat Clear Calc 113.9 113.9 113.9 eGFR > 60 > 60 > 60 BUN/Creatinine Ratio 8 L 8 L 8 L Glucose 138 H D 124 H 118 H Calculated Osmolality 274 L 277 279 Calcium 8.6 8.9 8.6 Corrected Calcium 9.9 Phosphorus 2.3 L Magnesium 1.6 Total Bilirubin 0.8 AST 31 ALT 18 Alkaline Phosphatase 51 Total Protein 5.0 L Albumin 2.8 L Globulin 2.2 L Albumin/Globulin Ratio 1.3 ABG Interpretation ABG results: 05/14/24 05/15/24 17:25 16:48 VBG pH 7.49 7.39 VBG pCO2 21 L 28 L VBG pO2 35 43 VBG Base Excess -5 L -7 L Assessment & Plan Assessment and plan (1) Intractable nausea and vomiting: Status: Acute Assessment and plan: Continue with symptomatic treatment MRI brain did not show any significant white matter changes, not consistent with demyelinating disease. Follow-up with the thiamine level as it could be deficient as she has been having intractable nausea vomiting for a long period of time leading to malabsorption MRI of the C-spine and T-spine: Did not show any evidence of demyelination as seen in neuromyelitis optica spectrum disorder. (2) Diabetes mellitus type 2, insulin dependent: Status: Acute Assessment and plan: Continue to check fingerstick glucose and follow sliding scale insulin per protocol (3) Hypokalemia: Status: Acute Assessment and plan: Being monitored closely and getting replaced
[2024-05-18 19:09] LABS: Albumin, Serum 2.8 gm/dL (3.5-5.0); Phosphorous 3.4 mg/dL (2.4-5.1)
[2024-05-19] VITALS (9 sets, daily range): BP systolic 100–130; BP diastolic 56–82; PULSE 87–100; RESP 15–21; TEMP 35.9–36.6; O2SAT 93–98
[2024-05-19 05:38] LABS: Basophils # (Auto) 0.1 Thou/mm3 (0.0-0.2); Basophils % (Auto) 1 % (0-2.5); Eosinophils # (Auto) 0.4 Thou/mm3 (0.0-0.5); Eosinophils % (Auto) 8 % (0-10); Hematocrit 29.9 % (36.0-46.0); Hemoglobin 10.3 g/dL (12.0-16.0); Immature Granulocytes % (Auto) 0 % (0-0); Immature Granulocytes Auto 0.02 Thou/mm3 (0.00-0.00); Lymphocytes # (Auto) 1.8 Thou/mm3 (1.0-4.8); Lymphocytes % (Auto) 32 % (10-50); Mean Corpuscular HGB Conc 34.4 g/dl (31.0-37.0); Mean Corpuscular Hemoglobin 29.3 pg (25.0-35.0); Mean Corpuscular Volume 85 fL (80-100); Monocytes % (Auto) 18 % (0-12); Neutrophils # (Auto) 2.2 Thou/mm3 (1.8-7.7); Neutrophils % (Auto) 40 % (37-80); Nucleated Red Blood Cell % 0 /100 WBC (0); Platelet Count 219 Thou/mm3 (140-440); RDW Standard Deviation 55.5 fL (36.4-46.3); Red Blood Count 3.52 Miln/mm3 (4.00-5.20); White Blood Count 5.5 Thou/mm3 (3.6-11.0)
[2024-05-19] MEDS: PROMETHAZINE INJ 6.25 MG in SODIUM CHLORIDE 0.9% 50 ML 2.5 MG IV ×4 (05:45→23:25)
[2024-05-19 06:12] LABS: Alanine Aminotransferase 21 U/L (10-49); Albumin, Serum 2.7 gm/dL (3.5-5.0); Albumin/Globulin Ratio 1.3 (1.2-2.2); Alkaline Phosphatase 52 U/L (46-116); Anion Gap 11 (7-16); Aspartate Amino Transferase 58 U/L (0-34); BUN/Creatinine Ratio 8 Ratio (12-20); Bilirubin,Total 0.8 mg/dL (0.3-1.2); Blood Urea Nitrogen < 5 mg/dL (9-23); Calcium 8.4 mg/dL (8.3-10.6); Calcium (Corrected) 9.4 mg/dL (8.5-10.1); Carbon Dioxide 21.1 mMol/L (20.0-31.0); Chloride 108 mMol/L (98-107); Creatinine (Component) 0.6 mg/dL (0.6-1.3); Estimated Creatinine Clearance 113.9 mL/min (>60); Globulin 2.1 gm/dL (2.3-3.5); Glucose 118 mg/dL (74-106); Magnesium 2.1 mg/dL (1.6-2.6); Osmolality,Calculated 277 (275-295); Sodium 140 mMol/L (136-145); Total Protein 4.8 gm/dL (5.7-8.2); eGFR > 60 See Note
--- NOTE | 2024-05-19 06:25 | PC.NURSE ---
Erythromycin IV not available on the floor, notified pharmacy. Pharmacist said they'll bring medication up.
--- NOTE | 2024-05-19 06:25 | PC.NURSE ---
Potassium 3.0, Dr. Valdez was made aware with no new orders obtained. stated she'll let the day team know.
[2024-05-19] MEDS: ERYTHROMYCIN INJ 250 MG in SODIUM CHLORIDE 0.9% 100 ML 100 MG IV (07:50)
[2024-05-19] MEDS: PANTOPRAZOLE INJ 40 MG VIAL IVP ×2 (08:14→21:20)
[2024-05-19] MEDS: HEPARIN SOD INJ 5000 UNIT/ML VIAL SC ×2 (08:14→21:20)
[2024-05-19] MEDS: LEVOTHYROXINE INJ 100 mCg VIAL 50 MCG IV (08:14)
[2024-05-19 09:26] LABS: Thyroid Stimulating Hormone 71.69 uIU/mL (0.55-4.78)
[2024-05-19] MEDS: POTASSIUM CHL 10 mEq IVPB 10 MEQ/100 ML BAG 100 MEQ IV ×4 (10:10→16:34)
[2024-05-19] MEDS: DEXAMETHASONE SOD PHOS INJ 10 MG/ML VIAL 4 MG IV (11:39)
[2024-05-19] MEDS: DEXTROSE 5%-LACTATED RINGERS 1,000 ML 100 ML IV (11:40)
[2024-05-19] MEDS: INSULIN HUM REGULAR 1 UNIT/0.01 ML (PER UNIT) SC ×2 (11:42→17:24)
[2024-05-19] MEDS: METOCLOPRAMIDE INJ 5 MG/ML VIAL 2 ML 10 MG IVP ×2 (13:55→21:20)
--- NOTE | 2024-05-19 14:11 | ESPR_ITS ---
<Statement entered by Иван Boland MD - 05/19/24 15:37> Patient was seen and examined at bedside, she was noticed to have still vomiting of clear yellowish liquid no food content. On evaluation we noticed that she has erythema at the site of IV line most likely secondary to potassium infusions. At this time we will consider putting PICC line tomorrow for TPN and also for electrolyte replacement. Will also for the patient and MRI for the abdomen and pelvis to rule out any neuroendocrine diseases, and potassium was noted to be 3.0, vitamin B12 high, folate still pending, we also ordered for the patient autoimmune studies. Were pending the 4 recommendations. - Patient's plan and care discussed with my attending, Dr. Adeel Boland MD Internal Medicine PGY-2 Documentation for date of: 05/19/24 Subjective Subjective Interval history: Patient examined at bedside today. Has had some nausea, vomiting and diarrhea overnight. Patient was throwing up as interview was conducted. Believes that her erythromycin is making her have diarrhea. Says Zofran and Reglan worked well for her. No other complaints at this time Exam Vital Signs Temp Pulse Resp BP Pulse Ox O2 Del Method 97.8 F 90 21 H 103/59 L 96 Room Air 05/19/24 12:00 05/19/24 12:00 05/19/24 12:00 05/19/24 12:00 05/19/24 12:00 05/19/24 12:00 Narrative Exam General: AAOx3, NAD, patient throwing up when seen HEENT: Dry mucous membranes, conjunctiva clear, EOMI, PERRLA, Cardiovascular: S1, S2, radial pulses +2 bilat, RRR Pulmonary: CTAB bilat no cough, no wheezing GI: Slight tenderness to light palpitation, no guarding, rigidity, rebound tenderness or distension, bowel sounds present Extremities: No presence of trace or pitting edema in lower extremities bilaterally, dorsalis pedis pulses +2 bilaterally, L upper hand in site of IV erythematous and TTP Neuro: Some horizontal nystagmus with eye movements bilat, AAOx3 Psych: Good judgement, thought and behavior. Cooperative Objective Labs 05/24/24 07:51 05/24/24 09:38 Labs: Laboratory Results - last 24 hr 05/18/24 05/19/24 16:23 04:44 WBC 5.5 D RBC 3.52 L Hgb 10.3 L Hct 29.9 L MCV 85 MCH 29.3 MCHC 34.4 RDW Std Deviation 55.5 H Plt Count 219 Neut % (Auto) 40 Lymph % (Auto) 32 [place] % (Auto) 18 H Eos % (Auto) 8 Baso % (Auto) 1 Neut # (Auto) 2.2 Lymph # (Auto) 1.8 [place] # (Auto) 1.0 H Eos # (Auto) 0.4 Baso # (Auto) 0.1 Immature Gran # (Auto) 0.02 H Absolute Nucleated RBC 0.00 Immature Gran % 0 Nucleated RBC % 0 Sodium 141 140 Potassium 2.9 L 3.0 L Chloride 109 H 108 H Carbon Dioxide 22.0 21.1 Anion Gap 10 11 BUN < 5 L < 5 L Creatinine 0.6 0.6 Estim Creat Clear Calc 113.9 113.9 eGFR > 60 > 60 BUN/Creatinine Ratio 8 L 8 L Glucose 118 H 118 H Calculated Osmolality 279 277 Calcium 8.6 8.4 Corrected Calcium 9.4 Phosphorus 3.4 3.0 Magnesium 2.1 Total Bilirubin 0.8 AST 58 H ALT 21 Alkaline Phosphatase 52 Total Protein 4.8 L Albumin 2.8 L 2.7 L Globulin 2.1 L Albumin/Globulin Ratio 1.3 TSH 71.69 H* D ABG Interpretation ABG results: 05/14/24 05/15/24 17:25 16:48 VBG pH 7.49 7.39 VBG pCO2 21 L 28 L VBG pO2 35 43 VBG Base Excess -5 L -7 L Quality Measures Quality Measures none Assessment & Plan Assessment Current Active Medications: Generic Name Dose Route Start Last Admin Trade Name Freq PRN Reason Stop Dose Admin Acetaminophen 650 mg 05/15/24 18:27 05/16/24 04:01 Acetaminophen 325 Mg Tablet PO 06/14/24 18:26 650 mg Q4HR PRN Administration Fever >101 or pain 1-3 Citric Acid/Sodium Citrate 30 ml 05/18/24 09:30 05/19/24 08:26 Citric Acid/Sodium Citr 15 Ml Udc (Bicitra) PO 06/17/24 09:29 Not Given BID MEGAN Dextrose 25 ml 05/15/24 05:02 Dextrose 50%-Water Inj 50 Ml Syringe IV 06/14/24 05:01 Q15MIN PRN BG 50-70 responsive npo pt Dextrose 50 ml 05/15/24 05:02 Dextrose 50%-Water Inj 50 Ml Syringe IV 06/14/24 05:01 Q15MIN PRN BG <50 OR BG <70 & pt unresponsive Glucagon 1 mg 05/15/24 05:02 Glucagon Inj 1 Mg Vial IM Q15MIN PRN BG <70, and no IV access Heparin Sodium (Porcine) 5,000 unit 05/15/24 09:00 05/19/24 08:14 Heparin Sod Inj 5000 Unit/Ml Vial SC 05/29/24 08:59 5,000 unit Q12HR MEGAN Administration Dextrose/Lactated Ringer's 1,000 mls @ 100 mls/hr 05/17/24 09:45 05/19/24 11:40 D5-Lr IV 06/16/24 09:44 100 mls/hr .Q10H MEGAN Administration Promethazine HCl 6.25 mg/ 50.25 mls @ 2.5 mls/min 05/17/24 20:30 05/19/24 11:40 Sodium Chloride IV 06/16/24 20:29 2.5 mls/min Q6HR MEGAN Administration Insulin Human Regular 0 unit 05/15/24 21:00 05/19/24 11:42 Insulin Hum Regular 1 Unit/0.01 Ml (Per Unit) SC 06/14/24 20:59 1 unit ACHS MEGAN Administration Protocol Levothyroxine Sodium 50 mcg 05/15/24 12:30 05/19/24 08:14 Levothyroxine Inj 100 Mcg Vial IV 06/14/24 12:29 50 mcg QAM MEGAN Administration Metoclopramide HCl 10 mg 05/15/24 06:00 05/19/24 13:55 Metoclopramide Inj 5 Mg/Ml Vial 2 Ml IVP 06/14/24 05:59 10 mg Q8HR MEGAN Administration Protocol Ondansetron HCl 4 mg 05/19/24 09:48 Ondansetron Inj 2 Mg/Ml Inj 2 Ml IV 06/18/24 09:47 Q6HR PRN NAUSEA OR VOMITING Protocol Pantoprazole Sodium 40 mg 05/15/24 09:00 05/19/24 08:14 Pantoprazole Inj 40 Mg Vial IVP 06/14/24 08:59 40 mg Q12HR MEGAN Administration Plan The patient is a 59-year-old female with a past medical history of hypertension, diabetes, hypothyroidism and hyperlipidemia who presented to the ED on 05/14/2024 with abdominal pain, nausea and vomiting that has persisted over the last 2 months. The patient has been admitted for management of intractable nausea and vomiting, starvation ketosis. #Intractable nausea and vomiting with severe dehydration #Anion gap metabolic acidosis #Starvation ketosis The patient presented with a 2-month history of nausea and vomiting, states that she has been unable to keep food or drinks as well as p.o. meds down. She was admitted about a month ago with similar symptoms. At that time, gastric emptying scan was attempted but could not be completed as patient vomited contrast. GI Dr. Reardon was consulted and patient had an upper endoscopy done which showed esophagitis and gastritis, confirmed with pathology-no malignancy. Patient was discharged on erythromycin with that she has been unable to take any of her p.o. meds as she still had persistent nausea and vomiting. ED, labs are significant for hypokalemia, metabolic acidosis with anion gap of 18 glucose 104. Patient received approximately 2.7 L of NS in the ED. No history of HIDA scan, possible biliary dyskinesia H.Pylori negative Discontinuing erythromycin at this time due to concern for diarrhea side effect Patient tolerated Zofran Reglan well Will need to further workup, symptoms could be due to central autonomic dysfunction, diabetic gastroparesis, or may be malignancy Will give patient steroids to help with symptoms Concern for patient, getting so much potassium, will want to get PICC line for patient moving forward Plan: ?GI consulted, appreciate recs ?LR/D5 100 cc an hour ?*Decadron 4 mg x 1 ?*PICC line tomorrow -*Autoimmune workup ?*MRI abdomen pelvis ?Reglan 10mg IV every 8 hours ? Discontinue erythromycin ?Promethazine 6.25mg IV q 6hr ?Zofran as needed ?Clear liquid diet ?Protonix 40 mg twice daily -Follow-up HIDA scan #Horizontal nystagmus, bilateral #Blurry vision Patient could be experiencing nystagmus due to numerous antiemetics she has received Could have underlying autonomic dysfunction that is the cause of the symptoms above and also these new symptoms Patient could also be having blurry vision due to poor oral intake Head CT negative for acute hemorrhage, ischemia, mass effect MRI shows scattered punctate foci in frontal white matter, neuro not concerned for demyelinating pattern Neuro recommends MRI of the C/T-spine to rule out neuromyelitis optica spectrum disorder Awaiting for C-spine, T-spine MRI interpretation from neurologist Plan: ?Neuroconsult, appreciate recommendations ?Follow-up with MRI results for C-spine T-spine #Electrolyte abnormalities #Hypokalemia secondary to #GI losses #Diarrhea Will administer IV replenishment as patient cannot tolerate p.o. Serum Potassium 2.8 Urine lytes unremarkable Patient has received over 200mEq of potassium Diarrhea could be due to large amounts of antiemetics/gastric motility Plan: ?Replete as needed ?Treat as above with antiemetics ?As above #History of dermoid cyst Diagnosed on previous admission, did not get transvaginal ultrasound Hyperechoic mass noted avascular in the region of the uterus 6.0 x 6.2 x 6.4 cm Unsure if this may be related to patient's nausea and vomiting, but will workup at this time Beta-Hcg and tumor markers unremarkable Need to see if tumor has any relation to persistent nausea vomiting and diarrhea Patient could have malignancy may be VIPoma or paraneoplastic syndrome Plan: -*Oncology consult #History of diabetes Patient has a history of diabetes, recently diagnosed in February. A1c on last admission in March was 10.3. Patient reports that she has not been taking any medications including insulin and her blood sugars have been within control, highest value has been 146. A1c today-6.8% Plan: -Monitor blood sugar closely and commence ISS if needed -Keep blood sugar within goal 140-1 80 -Hypoglycemic protocols in place #History of hypothyroidism The patient takes levothyroxine 125 mcg daily. Due to nausea and vomiting she has not taken consistently over the past 2 months. TSH: 125; Free T4: 0.47 Will replete with IV Synthroid (home dose 75 mcg) as patient cannot tolerate p.o. Repeat TSH 75 Plan: ?*Repeat T4 ?Synthroid 50 mcg IV daily #Health Maintenance Disposition: Med telemetry DVT prophylaxis: Heparin GI prophylaxis: Protonix Diet: Clear liquid CODE STATUS: Full The patient's plan was discussed with attending Dr. Denis and senior resident Dr. Kya Solorio, , PGY-1 Attending Provider Attestation/Addendum 59-year-old female with multiple comorbidities including hypertension, hyperlipidemia, type 2 diabetes mellitus who presented to the ER or 05/14/2024 for intractable nausea and vomiting requiring prolonged hospitalization as patient failed multiple antiemetic therapies and workup including EGD all of which have been inconclusive. Of note, patient underwent lumbar MRI with findings of possible epidural abscesses and discussed with [facility] and [facility] neurosurgeon however did not recommend transfer recommended conservative management. I reviewed above note and agree with findings and plans. I have also personally examined the patient with medicine team and went over assessment and plan with medical team including internal controls specialist and resident physician.
[2024-05-19 14:57] LABS: Free T4 (Free Thyroxine) 0.76 ng/dL (0.89-1.76)
--- NOTE | 2024-05-19 15:43 | ESPR_ITS ---
Documentation for date of: 05/19/24 Subjective Subjective Interval history: Review of the chart shows gallbladder ultrasound done on 05/05/2024 showed no gallstones No evidence of any CCK HIDA scan with ejection fraction of the gallbladder done in the past admissions Some improvement in the nausea vomiting with promethazine on board along with Reglan Exam Vital Signs Temp Pulse Resp BP Pulse Ox O2 Del Method 97.8 F 90 21 H 103/59 L 96 Room Air 05/19/24 12:00 05/19/24 12:00 05/19/24 12:00 05/19/24 12:00 05/19/24 12:00 05/19/24 12:00 Objective Labs 05/19/24 04:44 05/19/24 04:44 Labs: Laboratory Results - last 24 hr 05/18/24 05/19/24 16:23 04:44 WBC 5.5 D RBC 3.52 L Hgb 10.3 L Hct 29.9 L MCV 85 MCH 29.3 MCHC 34.4 RDW Std Deviation 55.5 H Plt Count 219 Neut % (Auto) 40 Lymph % (Auto) 32 [place] % (Auto) 18 H Eos % (Auto) 8 Baso % (Auto) 1 Neut # (Auto) 2.2 Lymph # (Auto) 1.8 [place] # (Auto) 1.0 H Eos # (Auto) 0.4 Baso # (Auto) 0.1 Immature Gran # (Auto) 0.02 H Absolute Nucleated RBC 0.00 Immature Gran % 0 Nucleated RBC % 0 Sodium 141 140 Potassium 2.9 L 3.0 L Chloride 109 H 108 H Carbon Dioxide 22.0 21.1 Anion Gap 10 11 BUN < 5 L < 5 L Creatinine 0.6 0.6 Estim Creat Clear Calc 113.9 113.9 eGFR > 60 > 60 BUN/Creatinine Ratio 8 L 8 L Glucose 118 H 118 H Calculated Osmolality 279 277 Calcium 8.6 8.4 Corrected Calcium 9.4 Phosphorus 3.4 3.0 Magnesium 2.1 Total Bilirubin 0.8 AST 58 H ALT 21 Alkaline Phosphatase 52 Total Protein 4.8 L Albumin 2.8 L 2.7 L Globulin 2.1 L Albumin/Globulin Ratio 1.3 TSH 71.69 H* D Free T4 0.76 L Impressions Impression: # Gastric motility disorder # Nausea and vomiting CCK HIDA scan with ejection fraction of the gallbladder in the morning ABG Interpretation ABG results: 05/14/24 05/15/24 17:25 16:48 VBG pH 7.49 7.39 VBG pCO2 21 L 28 L VBG pO2 35 43 VBG Base Excess -5 L -7 L Assessment & Plan A&P Narrative # Gastric motility disorder with gastroparesis # Hypokalemia Plan IV Reglan 10 mg IV push every 6 Discussed case with internal medicine team Also start the patient on IV erythromycin and consultation with pharmacy I went over the medicine list the patient had at home Regular was not on her list of medications later mostly erythromycin p.o. May be that is the reason she went back into vomiting No need for a repeat endoscopy No need to order the nuclear medicine gastric emptying study as patient will vomit again through the procedure and if no waste of test Thank you once again for the opportunity to participate in care of this patient Time Spent With Patient Time: Total time spent is greater than 50% in coordination of care (as documented) at patient's floor/unit and/or counseling patient:
--- NOTE | 2024-05-19 15:44 | XR_ITS ---
Examination: DOMINGO, hepatobiliary radioisotope scan Date and time of exam: May 20, 2024 1212 hours INDICATIONS: Nausea vomiting abdominal pain several months Technique: 6.2 mCi of 99M Hepatolite administered. Serial imaging then obtained from immediate through 60 minutes. Findings: Radioisotope activity within the liver is reasonably homogenous. Common bile duct small bowel activity noted Impression: There are activity noted, abnormal study, cystic duct obstruction if the patient has no gallbladder
[2024-05-19 18:49] LABS: Albumin, Serum 3.3 gm/dL (3.5-5.0); Anion Gap 11 (7-16); BUN/Creatinine Ratio 7 Ratio (12-20); Blood Urea Nitrogen < 5 mg/dL (9-23); Calcium (Corrected) 9.6 mg/dL (8.5-10.1); Carbon Dioxide 21.3 mMol/L (20.0-31.0); Chloride 108 mMol/L (98-107); Creatinine (Component) 0.7 mg/dL (0.6-1.3); Estimated Creatinine Clearance 97.6 mL/min (>60); Glucose 183 mg/dL (74-106); Osmolality,Calculated 281 (275-295); Phosphorous 1.7 mg/dL (2.4-5.1); Potassium 3.4 mMol/L (3.4-5.1); Sodium 140 mMol/L (136-145); eGFR > 60 See Note
--- NOTE | 2024-05-19 22:03 | PD.VPROG1 ---
Telemedicine visit statement This visit was conducted with the use of phone was obtained on 05/19/24 at 2203. Documentation for date of: 05/19/24 Subjective Subjective Interval history: Patient is in MedSurg. Her nausea and vomiting are somewhat better, no new symptoms reported. Virtual exam Vital Signs Temp Pulse Resp BP Pulse Ox O2 Del Method 96.7 F L 100 20 130/82 98 Room Air 05/19/24 19:58 05/19/24 19:58 05/19/24 19:58 05/19/24 19:58 05/19/24 19:58 05/19/24 19:58 Objective Labs 05/19/24 04:44 05/19/24 17:58 Labs: Laboratory Results - last 24 hr 05/19/24 05/19/24 04:44 17:58 WBC 5.5 D RBC 3.52 L Hgb 10.3 L Hct 29.9 L MCV 85 MCH 29.3 MCHC 34.4 RDW Std Deviation 55.5 H Plt Count 219 Neut % (Auto) 40 Lymph % (Auto) 32 [place] % (Auto) 18 H Eos % (Auto) 8 Baso % (Auto) 1 Neut # (Auto) 2.2 Lymph # (Auto) 1.8 [place] # (Auto) 1.0 H Eos # (Auto) 0.4 Baso # (Auto) 0.1 Immature Gran # (Auto) 0.02 H Absolute Nucleated RBC 0.00 Immature Gran % 0 Nucleated RBC % 0 Sodium 140 140 Potassium 3.0 L 3.4 Chloride 108 H 108 H Carbon Dioxide 21.1 21.3 Anion Gap 11 11 BUN < 5 L < 5 L Creatinine 0.6 0.7 Estim Creat Clear Calc 113.9 97.6 eGFR > 60 > 60 BUN/Creatinine Ratio 8 L 7 L Glucose 118 H 183 H D Calculated Osmolality 277 281 Calcium 8.4 9.0 Corrected Calcium 9.4 9.6 Phosphorus 3.0 1.7 L Magnesium 2.1 Total Bilirubin 0.8 AST 58 H ALT 21 Alkaline Phosphatase 52 Total Protein 4.8 L Albumin 2.7 L 3.3 L D Globulin 2.1 L Albumin/Globulin Ratio 1.3 TSH 71.69 H* D Free T4 0.76 L ABG Interpretation ABG results: 05/14/24 05/15/24 17:25 16:48 VBG pH 7.49 7.39 VBG pCO2 21 L 28 L VBG pO2 35 43 VBG Base Excess -5 L -7 L Assessment & Plan Assessment 1) Intractable nausea and vomiting: Secondary to gastroparesis associated with diabetes mellitus Status: Some improvement noted Assessment and plan: Continue with symptomatic treatment : Reglan along with promethazine, IV erythromycin as per GI recommendation MRI brain did not show any significant white matter changes, not consistent with demyelinating disease. MRI of the C-spine and T-spine: Did not show any evidence of demyelination as seen in neuromyelitis optica spectrum disorder. (2) Diabetes mellitus type 2, insulin dependent: Status: Acute Assessment and plan: Continue to check fingerstick glucose and follow sliding scale insulin per protocol (3) Hypokalemia: Status: Acute Assessment and plan: Being monitored closely and getting replaced
[2024-05-20] VITALS (12 sets, daily range): BP systolic 118–138; BP diastolic 63–94; PULSE 84–100; RESP 12–18; TEMP 35.9–36.6; O2SAT 95–99
--- NOTE | 2024-05-20 | XR_ITS ---
Examination: MRI abdomen with intravenous contrast. MRI abdomen without intravenous contrast. Date and time of exam: Lumbar 9 2023 1741 hrs. Indications: Dysuria nausea unable to tolerate liquids flank pain, history dermoid tumor Technique: Multiple axial, sagittal and coronal sections of the abdomen obtained. Transverse images, TR 6020, TE 107. T1 weighted transverse images, TR 582, TE 9.5. T2-weighted sagittal images, TR 4000, TE 105. T2-weighted sagittal images, TR 4000, TE 5. Coronal images, TR 4210, TE 107. Axial and coronal images are obtained post 20 cc intravenous injection, gadolinium. Findings: Lesions or biliary tract dilatation No gallstones Normal common hepatic common bile duct No pancreatic mass or dilated pancreatic duct No peripancreatic edema No adrenal mass Spleen is not enlarged No hydronephrosis Minimal perinephric stranding Aorta normal size No ascites No abdominal lymphadenopathy No abnormal enhancement on the postcontrast images Impression: No abdominal mass
[2024-05-20] MEDS: DEXTROSE 5%-LACTATED RINGERS 1,000 ML 100 ML IV ×2 (03:37→22:20)
[2024-05-20] MEDS: PROMETHAZINE INJ 6.25 MG in SODIUM CHLORIDE 0.9% 50 ML 2.5 MG IV ×3 (05:15→17:42)
[2024-05-20] MEDS: METOCLOPRAMIDE INJ 5 MG/ML VIAL 2 ML 10 MG IVP ×3 (05:15→22:21)
[2024-05-20 06:12] LABS: Basophils % (Auto) 0 % (0-2.5); Eosinophils # (Auto) 0.1 Thou/mm3 (0.0-0.5); Eosinophils % (Auto) 1 % (0-10); Hematocrit 30.5 % (36.0-46.0); Hemoglobin 10.4 g/dL (12.0-16.0); Immature Granulocytes % (Auto) 1 % (0-0); Immature Granulocytes Auto 0.05 Thou/mm3 (0.00-0.00); Lymphocytes % (Auto) 18 % (10-50); Mean Corpuscular HGB Conc 34.1 g/dl (31.0-37.0); Mean Corpuscular Hemoglobin 29.2 pg (25.0-35.0); Mean Corpuscular Volume 86 fL (80-100); Monocytes # (Auto) 0.5 Thou/mm3 (0.0-0.8); Monocytes % (Auto) 9 % (0-12); Neutrophils # (Auto) 4.2 Thou/mm3 (1.8-7.7); Neutrophils % (Auto) 71 % (37-80); Nucleated Red Blood Cell # 0.02 Thou/mm3 (0.00-0.00); Nucleated Red Blood Cell % 0 /100 WBC (0); Platelet Count 160 Thou/mm3 (140-440); RDW Standard Deviation 57.2 fL (36.4-46.3); Red Blood Count 3.56 Miln/mm3 (4.00-5.20); White Blood Count 5.8 Thou/mm3 (3.6-11.0)
[2024-05-20 06:32] LABS: Alanine Aminotransferase 26 U/L (10-49); Albumin, Serum 2.8 gm/dL (3.5-5.0); Albumin/Globulin Ratio 1.2 (1.2-2.2); Alkaline Phosphatase 57 U/L (46-116); Anion Gap 11 (7-16); Aspartate Amino Transferase 56 U/L (0-34); BUN/Creatinine Ratio 8 Ratio (12-20); Bilirubin,Total 0.7 mg/dL (0.3-1.2); Blood Urea Nitrogen < 5 mg/dL (9-23); Calcium 8.7 mg/dL (8.3-10.6); Calcium (Corrected) 9.7 mg/dL (8.5-10.1); Chloride 109 mMol/L (98-107); Creatinine (Component) 0.6 mg/dL (0.6-1.3); Estimated Creatinine Clearance 113.9 mL/min (>60); Globulin 2.3 gm/dL (2.3-3.5); Glucose 194 mg/dL (74-106); Osmolality,Calculated 283 (275-295); Potassium 3.5 mMol/L (3.4-5.1); Sodium 141 mMol/L (136-145); Total Protein 5.1 gm/dL (5.7-8.2); eGFR > 60 See Note
[2024-05-20] MEDS: PANTOPRAZOLE INJ 40 MG VIAL IVP ×2 (08:54→22:21)
[2024-05-20] MEDS: LEVOTHYROXINE INJ 100 mCg VIAL 50 MCG IV (08:54)
--- NOTE | 2024-05-20 08:56 | PC.SS ---
Follow up note: MRI pending.
--- NOTE | 2024-05-20 09:00 | XR_ITS ---
Examination: Ultrasound-guided needle placement right cephalic vein. Dual-lumen central line placement (PICC line). Fluoroscopy AP chest, portable, single view Exam date and time:May 20, 2024 1024 hours INDICATIONS: Need for long-term parenteral nutrition A timeout was completed verifying correct patient, procedure, site, positioning Informed consent provided Technique: The patient's site was prepped and draped in sterile fashion. Maximum Sterile Barrier Technique used including cap, mask, sterile gown, sterile gloves, and sterile full body drape. If ultrasound technique used: sterile gel and sterile probe covers. Hand Hygiene performed using proper scrub, soap and water, or alcohol-based hand rub. Ultrasound utilized to confirm patency of the right cephalic vein Utilizing ultrasonographic guidance successful 21-gauge needle puncture into the right cephalic vein Ultrasound images recorded and stored. 5 cc 1% lidocaine administered for local anesthetic. Successful micropuncture with a 21-gauge needle is performed. 0.18 wire guide is then introduced into the SVC under fluoroscopic guidance. Dual-lumen catheter dilator is then introduced, followed by the catheter in the SVC and proper position under fluoroscopic guidance. Successful aspiration of blood and flushing with heparinized saline is then performed in the 2 venous limbs. The catheter sutured in place. Findings: Under fluoroscopy, the tip of the catheter is in good position in the vena cava. Portable chest x-ray, post line placement is ordered. Estimated blood loss 3 cc The patient tolerated the procedure well and was in stable and satisfactory condition at completion of the procedure Impression: Successful ultrasound-guided needle placement right cephalic vein Successful placement of dual lumen central line, percutaneous Fluoroscopy 0.1 minute radiation dose 0.41 milligray 1 spot fluoroscopic chest film. AP chest completion procedure demonstrates satisfactory position central line. May use central line.
--- NOTE | 2024-05-20 09:07 | ESCONSULT_ITS ---
HPI Data of Consult Requesting Physician: Eduardo Johnson DO Primary Care Provider: Physician No Primary/Family Consult Narrative Reason for consult: Pelvic mass with associated pain symptoms History of present illness: Patient a 59-year-old lady who presented to ED with complaints of nausea vomiting and pelvic pain for several weeks. Had prior CT abdomen pelvis 05/06/2024 6 cm fat-containing dermoid tumor and pelvis noted on prior CT along with diffuse fatty infiltration throughout liver. Brain MRI 05/17/2024 revealed scattered punctate foci in the frontal white matter demyelinating disease pattern. T-spine MRI revealed mild diffuse increased signal in the thoracic cord seen with demyelinating disease. CT spine MRI showed early degenerative disc disease C5-C6. Seen by addressograph operator Dr. Reardon who felt that this was gastric motility disorder with gastroparesis. Had prior endoscopy 03/29/2024 revealing reflux esophagitis erythema stomach biopsies negative for H. pylori dysplasia or malignancy in esophagus gastric regions. Also prior gallbladder ultrasound showed no gallstones. Patient also had f pelvic ultrasound revealing the hyperechoic mass 6 x 6.2 x 6.4 cm, refused transvaginal ultrasound. Labs reveal mild anemia of 10.4 WBC 5.8 platelets 1 60,000. CMP shows elevated glucose, AST low albumin, and hypokalemia which has since been corrected. Still experiencing nausea vomiting with electro imbalances though improved, being considered for TPN. AFP CEA CA125 were all low within normal limits. Patient now referred for oncological consultation. cc:: cc: Eduardo Johnson DO Past Medical History Social History SOCIAL: Denies smoking drinking has been on disability since work related injury involving left ankle earlier this year. Past Medical History Comments PMH COMMENT: Hypertension diabetes hypothyroidism hyperlipidemia Meds Home Medications and Allergies Home Medications ?Medication ?Instructions ?Recorded ?Confirmed ?Type hydrochlorothiazide 25 mg tablet 25 mg PO QAM 03/25/24 04/18/24 History levothyroxine 125 mcg tablet 125 mcg PO QDAY 03/25/24 04/18/24 History lovastatin 40 mg tablet 40 mg PO QDAY 03/25/24 04/18/24 History Allergies Allergy/AdvReac Type Severity Reaction Status Date / Time No Known Allergies Allergy Verified 05/14/24 17:08 Exam Vital Signs Temp Pulse Resp BP Pulse Ox O2 Del Method 96.7 F L 97 18 134/88 H 97 Room Air 05/20/24 07:55 05/20/24 07:55 05/20/24 07:55 05/20/24 07:55 05/20/24 07:55 05/20/24 07:55 Narrative Exam Appearing comfortable answering questions appropriately Results Labs 05/20/24 05:35 05/20/24 05:35 Labs: Short CBC 05/20/24 Range/Units 05:35 WBC 5.8 (3.6-11.0) Thou/mm3 Hgb 10.4 L (12.0-16.0) g/dL Hct 30.5 L (36.0-46.0) % Plt Count 160 D (140-440) Thou/mm3 BMP 05/19/24 05/20/24 17:58 05:35 Sodium 140 141 Potassium 3.4 3.5 Chloride 108 H 109 H Carbon Dioxide 21.3 21.0 BUN < 5 L < 5 L Creatinine 0.7 0.6 Glucose 183 H D 194 H Calcium 9.0 8.7 Liver Function 05/19/24 05/20/24 Range/Units 17:58 05:35 Total Bilirubin 0.7 (0.3-1.2) mg/dL AST 56 H (0-34) U/L ALT 26 (10-49) U/L Alkaline Phosphatase 57 (46-116) U/L Albumin 3.3 L D 2.8 L D (3.5-5.0) gm/dL ABG Interpretation ABG results: 05/14/24 05/15/24 17:25 16:48 VBG pH 7.49 7.39 VBG pCO2 21 L 28 L VBG pO2 35 43 VBG Base Excess -5 L -7 L Assessment and Plan Additional Assessment & Plan Additional Plan: 1. Admitted with abdominal pelvic pain nausea vomiting dehydration electrolyte imbalance. 2 GI workup including recent endoscopy performed by Dr. Reardon indicates gastric motility disorder with gastroparesis. 3. Pelvic mass appearing to be dermoid with pain symptoms. Tumor markers including CA125 are low. 4. Recommend patient be seen by AREA COORDINATOR for consideration of the resection of the apparent dermoid mass since it is causing pelvic pain. I do not think is related to the upper GI symptoms, however.
[2024-05-20 09:19] LABS: Magnesium 1.9 mg/dL (1.6-2.6); Phosphorous 1.9 mg/dL (2.4-5.1)
--- NOTE | 2024-05-20 09:36 | PC.SS ---
Addendum entered by Aminah Rodrigues 05/20/24 11:53: SS has sent inquiry to the local SNF using [facility]. PASRR assessment is completed. Original Note: SS followed up with pt regarding her d/c plan. SS provided verbal options for d/c to home or SNF. Patient's choice is SNF. Pt is aware her health insurance requires insurance authorization.
--- NOTE | 2024-05-20 10:47 | XR_ITS ---
Examination: MRI pelvis with intravenous contrast. MRI pelvis without intravenous contrast. Date and time of exam: May 20, 2024 at 1745 hrs. 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 Transverse images, TR 6020, TE 107. T1 weighted transverse images, TR 582, TE 9.5. T2-weighted sagittal images, TR 4000, TE 105. T2-weighted sagittal images, TR 4000, TE 5. Coronal images, TR 4210, TE 107. Axial and coronal images are obtained post 20 cc intravenous injection, gadolinium. Findings: Fat-containing central pelvic mass 5.6 x 6.0 cm No common iliac and external iliac or common femoral lymphadenopathy Postcontrast images do not demonstrate enhancement of this central pelvic mass The ovaries are not diagnostically visualized No free fluid in the pelvis Impression: Fat-containing central pelvic mass 5.6 x 6.0 cm most consistent with dermoid tumor
[2024-05-20] MEDS: HEPARIN SOD LOCK SYR 100 UNIT/ML 500 UNIT IV (11:10)
[2024-05-20] MEDS: LIDOCAINE INJ PF 1% 30 ML VIAL 6 ML INFL (11:38)
[2024-05-20] MEDS: THIAMINE INJ 500 MG in SODIUM CHLORIDE 0.9% 100 ML 210 MG IV ×2 (14:07→22:28)
--- NOTE | 2024-05-20 15:16 | PC.SS ---
SS met with pt and her cousins, Elizabeth Last and Trish to discuss SNF options. SS informed pt she has been accepted to [facility] and [facility]. Pt is aware SS provided Elizabeth and Kiana with [facility] and [facility] demographic information. SS will follow up with SNF options.
--- NOTE | 2024-05-20 15:28 | ESPR_ITS ---
<Statement entered by Иван Boland MD - 05/20/24 16:15> Patient was seen and examined at bedside. Patient reported that she still vomits. Patient reported that she still having diplopia. We started the patient on thiamine for treatment of any vitamin deficiency that can result in [place] syncopal body. Will a 1 day trial of capsicin cream topical to see if there is any benefit in her vomiting. We consulted LAND DEVELOPMENT MANAGER for the dermoid cyst, Dr. aDng thinks possible removal of the tumor might help resolve her symptoms. Will wait for the official consultation tomorrow. At this time patient vitals and labs within normal limits. Today she is going for PICC line and possible starting her TPN from tomorrow. On discussing her social conditions she reported that she lives alone and she wants to be discharged to retirement facility. - Patient's plan and care discussed with my attending, Dr. Odette Boland MD Internal Medicine PGY-2 Documentation for date of: 05/20/24 Subjective Subjective Interval history: Pt examined at bedside today. No acute overnight events. Pt is still having some nausea and vomiting. Has been able to drink water. No other overnight events. Exam Vital Signs Temp Pulse Resp BP Pulse Ox O2 Del Method 97.9 F 94 18 134/85 H 98 Room Air 05/20/24 09:49 05/20/24 12:00 05/20/24 11:45 05/20/24 11:45 05/20/24 11:45 05/20/24 11:45 Narrative Exam General: AAOx3, NAD, patient throwing up when seen HEENT: Dry mucous membranes, conjunctiva clear, EOMI, PERRLA, Cardiovascular: S1, S2, radial pulses +2 bilat, RRR Pulmonary: CTAB bilat no cough, no wheezing GI: Slight tenderness to light palpitation, no guarding, rigidity, rebound tenderness or distension, bowel sounds present Extremities: No presence of trace or pitting edema in lower extremities bilaterally, dorsalis pedis pulses +2 bilaterally, L upper hand in site of IV erythematous and TTP Neuro: Some horizontal nystagmus with eye movements bilat, AAOx3 Psych: Good judgement, thought and behavior. Cooperative Objective Labs 05/20/24 05:35 05/20/24 05:35 Labs: Laboratory Results - last 24 hr 05/19/24 05/20/24 05/20/24 17:58 04:08 05:35 WBC 5.8 RBC 3.56 L Hgb 10.4 L Hct 30.5 L MCV 86 MCH 29.2 MCHC 34.1 RDW Std Deviation 57.2 H Plt Count 160 D Neut % (Auto) 71 Lymph % (Auto) 18 [place] % (Auto) 9 Eos % (Auto) 1 Baso % (Auto) 0 Neut # (Auto) 4.2 Lymph # (Auto) 1.0 [place] # (Auto) 0.5 Eos # (Auto) 0.1 Baso # (Auto) 0.0 Immature Gran # (Auto) 0.05 H Absolute Nucleated RBC 0.02 H Immature Gran % 1 H Nucleated RBC % 0 Sodium 140 141 Potassium 3.4 3.5 Chloride 108 H 109 H Carbon Dioxide 21.3 21.0 Anion Gap 11 11 BUN < 5 L < 5 L Creatinine 0.7 0.6 Estim Creat Clear Calc 97.6 113.9 eGFR > 60 > 60 BUN/Creatinine Ratio 7 L 8 L Glucose 183 H D 194 H Calculated Osmolality 281 283 Calcium 9.0 8.7 Corrected Calcium 9.6 9.7 Phosphorus 1.7 L 1.9 L Magnesium 1.9 Total Bilirubin 0.7 AST 56 H ALT 26 Alkaline Phosphatase 57 Total Protein 5.1 L Albumin 3.3 L D 2.8 L D Globulin 2.3 Albumin/Globulin Ratio 1.2 ABG Interpretation ABG results: 05/14/24 05/15/24 17:25 16:48 VBG pH 7.49 7.39 VBG pCO2 21 L 28 L VBG pO2 35 43 VBG Base Excess -5 L -7 L Quality Measures Quality Measures none Assessment & Plan Assessment Current Active Medications: Generic Name Dose Route Start Last Admin Trade Name Freq PRN Reason Stop Dose Admin Acetaminophen 650 mg 05/15/24 18:27 05/16/24 04:01 Acetaminophen 325 Mg Tablet PO 06/14/24 18:26 650 mg Q4HR PRN Administration Fever >101 or pain 1-3 Citric Acid/Sodium Citrate 30 ml 05/18/24 09:30 05/20/24 08:54 Citric Acid/Sodium Citr 15 Ml Udc (Bicitra) PO 06/17/24 09:29 Not Given BID MEGAN Dextrose 25 ml 05/15/24 05:02 Dextrose 50%-Water Inj 50 Ml Syringe IV 06/14/24 05:01 Q15MIN PRN BG 50-70 responsive npo pt Dextrose 50 ml 05/15/24 05:02 Dextrose 50%-Water Inj 50 Ml Syringe IV 06/14/24 05:01 Q15MIN PRN BG <50 OR BG <70 & pt unresponsive Glucagon 1 mg 05/15/24 05:02 Glucagon Inj 1 Mg Vial IM Q15MIN PRN BG <70, and no IV access Heparin Sodium (Porcine) 5,000 unit 05/15/24 09:00 05/20/24 08:54 Heparin Sod Inj 5000 Unit/Ml Vial SC 05/29/24 08:59 Not Given Q12HR MEGAN Dextrose/Lactated Ringer's 1,000 mls @ 100 mls/hr 05/17/24 09:45 05/20/24 03:37 D5-Lr IV 06/16/24 09:44 100 mls/hr .Q10H MEGAN Administration Promethazine HCl 6.25 mg/ 50.25 mls @ 2.5 mls/min 05/17/24 20:30 05/20/24 14:07 Sodium Chloride IV 06/16/24 20:29 2.5 mls/min Q6HR MEGAN Administration Thiamine HCl 500 mg/ Sodium 105 mls @ 210 mls/hr 05/20/24 10:50 05/20/24 14:07 Chloride IV 05/22/24 06:29 210 mls/hr Q8HR MEGAN Administration Thiamine HCl 250 mg/ Sodium 102.5 mls @ 205 mls/hr 05/23/24 09:00 Chloride IV 05/27/24 09:29 QDAY MEGAN Insulin Human Regular 0 unit 05/15/24 21:00 05/20/24 13:24 Insulin Hum Regular 1 Unit/0.01 Ml (Per Unit) SC 06/14/24 20:59 Not Given ACHS [facility] Protocol Levothyroxine Sodium 50 mcg 05/15/24 12:30 05/20/24 08:54 Levothyroxine Inj 100 Mcg Vial IV 06/14/24 12:29 50 mcg QAM MEGAN Administration Metoclopramide HCl 10 mg 05/15/24 06:00 05/20/24 14:08 Metoclopramide Inj 5 Mg/Ml Vial 2 Ml IVP 06/14/24 05:59 10 mg Q8HR MEGAN Administration Protocol Ondansetron HCl 4 mg 05/19/24 09:48 Ondansetron Inj 2 Mg/Ml Inj 2 Ml IV 06/18/24 09:47 Q6HR PRN NAUSEA OR VOMITING Protocol Pantoprazole Sodium 40 mg 05/15/24 09:00 05/20/24 08:54 Pantoprazole Inj 40 Mg Vial IVP 06/14/24 08:59 40 mg Q12HR MEGAN Administration Plan The patient is a 59-year-old female with a past medical history of hypertension, diabetes, hypothyroidism and hyperlipidemia who presented to the ED on 05/14/2024 with abdominal pain, nausea and vomiting that has persisted over the last 2 months. The patient has been admitted for management of intractable nausea and vomiting, starvation ketosis. #Intractable nausea and vomiting with severe dehydration #Anion gap metabolic acidosis #Starvation ketosis The patient presented with a 2-month history of nausea and vomiting, states that she has been unable to keep food or drinks as well as p.o. meds down. She was admitted about a month ago with similar symptoms. At that time, gastric emptying scan was attempted but could not be completed as patient vomited contrast. GI Dr. Reardon was consulted and patient had an upper endoscopy done which showed esophagitis and gastritis, confirmed with pathology-no malignancy. Patient was discharged on erythromycin with that she has been unable to take any of her p.o. meds as she still had persistent nausea and vomiting. ED, labs are significant for hypokalemia, metabolic acidosis with anion gap of 18 glucose 104. Patient received approximately 2.7 L of NS in the ED. No history of HIDA scan, possible biliary dyskinesia H.Pylori negative Discontinuing erythromycin at this time due to concern for diarrhea side effect Patient tolerated Zofran Reglan well Will need to further workup, symptoms could be due to central autonomic dysfunction, diabetic gastroparesis, or may be malignancy Will give patient steroids to help with symptoms Concern for patient, getting so much potassium, will want to get PICC line for patient moving forward Since patient having dermoid cyst, will consult LAND DEVELOPMENT MANAGER for any connection to persistent nausea and vomiting due to compression of abdomen Will need to characterize dermoid cyst with imaging Plan: ?GI consulted, appreciate recs ?LR/D5 100 cc an hour ?PICC line today -F/u Autoimmune workup ?Follow-up MRI abdomen pelvis ?Reglan 10mg IV every 8 hours ?Promethazine 6.25mg IV q 6hr ?Zofran as needed ?Clear liquid diet ?Protonix 40 mg twice daily -Follow-up HIDA scan #Horizontal nystagmus, bilateral #Blurry vision Patient could be experiencing nystagmus due to numerous antiemetics she has received Could have underlying autonomic dysfunction that is the cause of the symptoms above and also these new symptoms Patient could also be having blurry vision due to poor oral intake Head CT negative for acute hemorrhage, ischemia, mass effect MRI shows scattered punctate foci in frontal white matter, neuro not concerned for demyelinating pattern Neuro recommends MRI of the C/T-spine to rule out neuromyelitis optica spectrum disorder Neuro does not believe MRI of C-spine, T-spine and brain showed demyelinating pattern Plan: ?Neuroconsult, appreciate recommendations ? Symptomatic control #Electrolyte abnormalities #Hypokalemia secondary to #GI losses #Diarrhea Will administer IV replenishment as patient cannot tolerate p.o. Serum Potassium 2.8 Urine lytes unremarkable Patient has received over 200mEq of potassium Diarrhea could be due to large amounts of antiemetics/gastric motility Plan: ?Replete as needed ?Treat as above with antiemetics ?As above #History of dermoid cyst Diagnosed on previous admission, did not get transvaginal ultrasound Hyperechoic mass noted avascular in the region of the uterus 6.0 x 6.2 x 6.4 cm Unsure if this may be related to patient's nausea and vomiting, but will workup at this time Beta-Hcg and tumor markers unremarkable Need to see if tumor has any relation to persistent nausea vomiting and diarrhea Patient could have malignancy may be VIPoma or paraneoplastic syndrome Oncology recommends LAND DEVELOPMENT MANAGER consult Plan: -As above #History of diabetes Patient has a history of diabetes, recently diagnosed in February. A1c on last admission in March was 10.3. Patient reports that she has not been taking any medications including insulin and her blood sugars have been within control, highest value has been 146. A1c today-6.8% Plan: -Monitor blood sugar closely and commence ISS if needed -Keep blood sugar within goal 140-1 80 -Hypoglycemic protocols in place #History of hypothyroidism The patient takes levothyroxine 125 mcg daily. Due to nausea and vomiting she has not taken consistently over the past 2 months. TSH: 125; Free T4: 0.47 Will replete with IV Synthroid (home dose 75 mcg) as patient cannot tolerate p.o. Repeat TSH 75; T40.76 Plan: ? Recheck TSH in 1 week to adjust Synthroid ? Continue Synthroid 50 mcg IV daily #Health Maintenance Disposition: Med telemetry DVT prophylaxis: Heparin GI prophylaxis: Protonix Diet: Clear liquid CODE STATUS: Full The patient's plan was discussed with attending Dr. Pino and senior resident Dr. Kya Solorio DO, PGY-1 Attending Provider Attestation/Addendum I, Sasha Pino DO, attest that I was physically present for the barraza portions of the service and evaluated the patient with the resident and I reviewed and discussed the case with the resident and agree with the resident's findings and plans of care as documented above Patient seen and evaluated this afternoon. She continues to have nausea and vomiting since March. Patient states she lost 35lbs due to inability to tolerate PO intake. patient is able to take small sips of water only. Patient has not been able to tolerate any PO intake which is the cause of her elevated TSH. Continue with IV synthroid. Patient reports some watery stools due to erythromycin. Patient was seen by oncology, recommends screener perfumer consult for dermoid tumor. Pending BUILDING RENTAL MANAGER recommendations. Will also give topical capsaicin due to intractable n/v. HIDA scan done shows abnormal study/ cystic duct obstruction. LFTs within normal limits. Will f/u with GI recommendations.
[2024-05-20] MEDS: HEPARIN SOD INJ 5000 UNIT/ML VIAL SC (22:11)
--- NOTE | 2024-05-20 22:12 | ESPR_ITS ---
Documentation for date of: 05/20/24 Subjective Subjective Interval history: CCK HIDA scan with ejection fraction shows obstruction of the cystic duct Since patient's symptoms of nausea vomiting continue Recommend surgical consultation with laparoscopic versus open cholecystectomy The other issues of a pelvic mass which is central mass most likely dermoid tumor being evaluated by oncology Exam Vital Signs Temp Pulse Resp BP Pulse Ox O2 Del Method 97.4 F 87 18 129/73 97 Room Air 05/20/24 20:00 05/20/24 20:00 05/20/24 20:00 05/20/24 20:00 05/20/24 20:00 05/20/24 20:00 Objective Labs 05/20/24 05:35 05/20/24 05:35 Labs: Laboratory Results - last 24 hr 05/20/24 05/20/24 04:08 05:35 WBC 5.8 RBC 3.56 L Hgb 10.4 L Hct 30.5 L MCV 86 MCH 29.2 MCHC 34.1 RDW Std Deviation 57.2 H Plt Count 160 D Neut % (Auto) 71 Lymph % (Auto) 18 [place] % (Auto) 9 Eos % (Auto) 1 Baso % (Auto) 0 Neut # (Auto) 4.2 Lymph # (Auto) 1.0 [place] # (Auto) 0.5 Eos # (Auto) 0.1 Baso # (Auto) 0.0 Immature Gran # (Auto) 0.05 H Absolute Nucleated RBC 0.02 H Immature Gran % 1 H Nucleated RBC % 0 Sodium 141 Potassium 3.5 Chloride 109 H Carbon Dioxide 21.0 Anion Gap 11 BUN < 5 L Creatinine 0.6 Estim Creat Clear Calc 113.9 eGFR > 60 BUN/Creatinine Ratio 8 L Glucose 194 H Calculated Osmolality 283 Calcium 8.7 Corrected Calcium 9.7 Phosphorus 1.9 L Magnesium 1.9 Total Bilirubin 0.7 AST 56 H ALT 26 Alkaline Phosphatase 57 Total Protein 5.1 L Albumin 2.8 L D Globulin 2.3 Albumin/Globulin Ratio 1.2 Impressions Impression: # Cystic duct obstruction with nonvisualization of the gallbladder on HIDA scan # Persistent nausea vomiting could be biliary tract symptoms Recommend surgical consultation for possible laparoscopic versus open cholecystectomy ABG Interpretation ABG results: 05/14/24 05/15/24 17:25 16:48 VBG pH 7.49 7.39 VBG pCO2 21 L 28 L VBG pO2 35 43 VBG Base Excess -5 L -7 L Assessment & Plan A&P Narrative 1. Admitted with abdominal pelvic pain nausea vomiting dehydration electrolyte imbalance. 2 GI workup including recent endoscopy performed by Dr. Reardon indicates gastric motility disorder with gastroparesis. 3. Pelvic mass appearing to be dermoid with pain symptoms. Tumor markers including CA125 are low. 4. Recommend patient be seen by BIL[facility] for consideration of the resection of the apparent dermoid mass since it is causing pelvic pain. I do not think is related to the upper GI symptoms, however. Time Spent With Patient Time: Total time spent is greater than 50% in coordination of care (as documented) at patient's floor/unit and/or counseling patient:
--- NOTE | 2024-05-20 22:40 | PD.GYNCONS ---
GARBAGE PICK UP WORKER HPI Data of Consult Requesting Physician: Benson Rubin MD Primary Care Provider: Physician No Primary/Family Consult Narrative History of present illness: Initial: The patient was a 59-year-old female with a medical history of hypertension, diabetes, hypothyroidism, and hyperlipidemia who presented to the ED on 05/14/2024 with persistent abdominal pain, nausea, and vomiting that had lasted for the past two months. She reported that she had been diagnosed with diabetes in early February and started on Jardiance and metformin. Prior to this, she had experienced intermittent nausea and vomiting, which she stated worsened after starting the medications. In early March, she had visited the ED and was admitted for starvation ketosis. She was considered for an insulin drip in the ICU, but her blood sugar remained normal, and she did not require it. She was then transferred back to the regular floor, where a gastric emptying study was attempted but not completed because she vomited the contrast. A GI consultation with Dr. Reardon led to an EGD, which revealed grade B reflux esophagitis and esophagitis, confirmed by pathology. She was discharged with prescriptions for erythromycin and Reglan, but she reported being unable to take either due to continued vomiting. She stated that since discharge, her symptoms had not improved, with persistent nausea and vomiting. She denied diarrhea but mentioned some constipation, stating that she had not had a bowel movement in five days. Subsequent: - MRI of the brain showed no significant white matter changes, not consistent with demyelinating disease. - Thiamine deficiency considered due to prolonged intractable nausea and vomiting causing malabsorption. - MRI of the C-spine and thoracic spine and CSF analysis ordered due to neuromyelitis optica spectrum disorder being a potential diagnosis. - Admission diagnosis: Abdominal/pelvic pain, nausea, vomiting, dehydration, and electrolyte imbalance. - GI workup: Recent endoscopy by Dr. Reardon indicates gastric motility disorder and gastroparesis. - Pelvic mass: Appears to be a dermoid cyst with associated pain; tumor markers, including CA125, are low. - Recommendation from Dr Patterson: Referral to [facility] for evaluation of the dermoid mass and potential resection due to pelvic pain; not likely related to upper GI symptoms. Pelvic MRI: Fat-containing central pelvic mass 5.6 x 6.0 cm No common iliac and external iliac or common femoral lymphadenopathy Postcontrast images do not demonstrate enhancement of this central pelvic mass The ovaries are not diagnostically visualized No free fluid in the pelvis HIDA Scan: There are activity noted, abnormal study, cystic duct obstruction if the patient has no gallbladder cc:: cc: Benson Rubin MD Review of Systems Review of Systems Systems Reviewed: All systems reviewed, normal except as documented Meds Home Medications and Allergies Home Medications ?Medication ?Instructions ?Recorded ?Confirmed ?Type hydrochlorothiazide 25 mg tablet 25 mg PO QAM 03/25/24 04/18/24 History levothyroxine 125 mcg tablet 125 mcg PO QDAY 03/25/24 04/18/24 History lovastatin 40 mg tablet 40 mg PO QDAY 03/25/24 04/18/24 History Allergies Allergy/AdvReac Type Severity Reaction Status Date / Time No Known Allergies Allergy Verified 05/14/24 17:08 Exam - GARBAGE PICK UP WORKER Vital Signs Temp Pulse Resp BP Pulse Ox O2 Del Method 97.4 F 87 18 129/73 97 Room Air 05/20/24 20:00 05/20/24 20:00 05/20/24 20:00 05/20/24 20:00 05/20/24 20:00 05/20/24 20:00 Constitutional Constitutional: no acute distress Routine HEENT Exam Head: Present normocephalic and atraumatic Eye: Present EOMI and PERRL ENT: Present mucous membranes moist Routine Neck Exam Neck: Present supple and trachea midline Routine Respiratory Exam Respiratory: Present chest non-tender, lungs clear, normal breath sounds and no resp distress Routine Cardiovascular Exam Cardiovascular: Present RRR Routine Abdominal Exam Abdominal: Present soft and normoactive bowel sounds Routine Extremities Exam Extremities: Present full ROM Routine Skin Exam Skin: Present intact and dry Routine Neurological Exam Neurological: Present alert, oriented X3 and CN II-XII intact Routine Psychiatric Exam Psychiatric: Present normal affect and normal thought process GARBAGE PICK UP WORKER - Results Labs 05/20/24 05:35 05/20/24 05:35 Labs: Short CBC 05/20/24 Range/Units 05:35 WBC 5.8 (3.6-11.0) Thou/mm3 Hgb 10.4 L (12.0-16.0) g/dL Hct 30.5 L (36.0-46.0) % Plt Count 160 D (140-440) Thou/mm3 BMP 05/20/24 05:35 Sodium 141 Potassium 3.5 Chloride 109 H Carbon Dioxide 21.0 BUN < 5 L Creatinine 0.6 Glucose 194 H Calcium 8.7 Liver Function 05/20/24 Range/Units 05:35 Total Bilirubin 0.7 (0.3-1.2) mg/dL AST 56 H (0-34) U/L ALT 26 (10-49) U/L Alkaline Phosphatase 57 (46-116) U/L Albumin 2.8 L D (3.5-5.0) gm/dL ABG Interpretation ABG results: 05/14/24 05/15/24 17:25 16:48 VBG pH 7.49 7.39 VBG pCO2 21 L 28 L VBG pO2 35 43 VBG Base Excess -5 L -7 L Assessment and Plan Assessment and plan (1) Intractable nausea and vomiting: Status: Acute Assessment and plan: Continue treatment as per primary and consulting teams From a gynecologic standpoint patient has a cyst that is most likely consistent with dermoid cyst/teratoma of ovary Dermoid cysts are generally not known to cause such severe nausea or vomiting. It can contribute to nausea and vomiting if there is torsion of pedicles but all her imaging does not indicate any torsion of pedicles Dermoid cysts are usually stable in her age group and are amenable to interval/outpatient surgery Very high likelihood of nausea and vomiting being caused by the CBD obstruction as noted in the HIDA scan and as documented by real estate analyst patient requires surgical evaluation. [facility] team is available to consult as needed. If the team/patient decide that they want to address the dermoid at the time of laparoscopy for her CBD/gallbladder then that can be coordinated with the general surgical team. Gynecologic intervention would also depend on the general surgeons evaluation for stability for prolonged surgery and patient's ability to tolerate prolonged pneumoperitoneum/Trendelenburg positioning as needed for pelvic surgery. Size of the cyst may necessitate laparotomy if solid/hard cystic elements are noted Very low likelihood of malignancy given negative tumor markers (2) Teratoma of ovary: Status: Acute
--- NOTE | 2024-05-20 23:01 | ESPR_ITS ---
Documentation for date of: 05/20/24 Subjective Subjective Interval history: Ms. Palumbo was seen in [facility] today, doing little better as the nausea and vomiting are controlled with Phenergan, she is not eating. . Exam - Neurology Vital Signs Temp Pulse Resp BP Pulse Ox O2 Del Method 97.4 F 87 18 129/73 97 Room Air 05/20/24 20:00 05/20/24 20:00 05/20/24 20:00 05/20/24 20:00 05/20/24 20:00 05/20/24 20:00 Narrative Exam GENERAL APPEARANCE: Well hydrated, well-nourished in no acute distress. HEENT: Normocephalic, atraumatic, extraocular movements intact. Pupils: Equal reacting to light and accommodation, horizontal nystagmus noted NECK: Supple, no JVD or bruits. CARDIOVASULAR: Heart: S1, S2 heard, regular without S3-S4 or murmur no rubs or gallops. LUNGS/CHEST: Clear to auscultation bilaterally. No rails, rhonchi, or wheezing. Normal inspection. ABDOMEN: Soft, nontender, with normal bowel sounds. No pulsatile masses. No rebound, rigidity, or guarding. Normal inspection and palpation. EXTREMITIES: Normal inspection and palpation. No edema, clubbing or cyanosis. SKIN: Warm and dry without rashes. Normal inspection. MUSCULOSKELETAL: No cervical, thoracic, lumbar or midline bony tenderness. Normal inspection. NEURO: Alert, awake and oriented x3. Cranial nerves: II through XII grossly intact. Speech and language: Normal with no dysarthria or dysphasia. Motor system: Tone and bulk: Normal: Strength: 5 out of 5 in all 4 extremities; No pronator drift noted. Deep tendon reflexes: 2+ bilaterally symmetrical. Plantar reflex: Downgoing bilaterally. Sensory system: Intact to all modalities of sensation bilaterally. Coordination: Intact to dxhpyz-eruf-rzedj and gizz-zkww-aadn test bilaterally. No ataxia, no dysmetria, or dysdiadochokinesia noted. No intention tremors noted. Gait: Not tested. No signs of meningeal irritation noted. PSYCHIATRIC: Normal mood and affect. Objective Labs 05/20/24 05:35 05/20/24 05:35 Labs: Laboratory Results - last 24 hr 05/20/24 05/20/24 04:08 05:35 WBC 5.8 RBC 3.56 L Hgb 10.4 L Hct 30.5 L MCV 86 MCH 29.2 MCHC 34.1 RDW Std Deviation 57.2 H Plt Count 160 D Neut % (Auto) 71 Lymph % (Auto) 18 [place] % (Auto) 9 Eos % (Auto) 1 Baso % (Auto) 0 Neut # (Auto) 4.2 Lymph # (Auto) 1.0 [place] # (Auto) 0.5 Eos # (Auto) 0.1 Baso # (Auto) 0.0 Immature Gran # (Auto) 0.05 H Absolute Nucleated RBC 0.02 H Immature Gran % 1 H Nucleated RBC % 0 Sodium 141 Potassium 3.5 Chloride 109 H Carbon Dioxide 21.0 Anion Gap 11 BUN < 5 L Creatinine 0.6 Estim Creat Clear Calc 113.9 eGFR > 60 BUN/Creatinine Ratio 8 L Glucose 194 H Calculated Osmolality 283 Calcium 8.7 Corrected Calcium 9.7 Phosphorus 1.9 L Magnesium 1.9 Total Bilirubin 0.7 AST 56 H ALT 26 Alkaline Phosphatase 57 Total Protein 5.1 L Albumin 2.8 L D Globulin 2.3 Albumin/Globulin Ratio 1.2 ABG Interpretation ABG results: 05/14/24 05/15/24 17:25 16:48 VBG pH 7.49 7.39 VBG pCO2 21 L 28 L VBG pO2 35 43 VBG Base Excess -5 L -7 L Assessment & Plan Assessment and plan (1) Intractable nausea and vomiting: Status: Acute Assessment and plan: Continue with symptomatic treatment MRI brain did not show any significant white matter changes, not consistent with demyelinating disease. MRI of the C-spine and T-spine: Did not show any evidence of demyelination as seen in neuromyelitis optica spectrum disorder. (2) Teratoma of ovary: Status: Acute Assessment and plan: FU with MRI abdomen (3) Diabetes mellitus type 2, insulin dependent: Status: Acute Assessment and plan: Continue to check fingerstick glucose and follow sliding scale insulin per protocol (4) Hypokalemia: Status: Acute Assessment and plan: Being monitored closely and getting replaced
[2024-05-21] VITALS (9 sets, daily range): BP systolic 104–119; BP diastolic 64–69; PULSE 81–102; RESP 17–18; TEMP 36.1–36.2; O2SAT 94–99; BMI 35.4
--- NOTE | 2024-05-21 | XR_ITS ---
Examination: MRI lumbar spine, without intravenous contrast. MRI lumbar spine , with intravenous contrast. Exam date and time: May 21, 2024 1733 hrs. Indications: Weakness in legs, dysuria, flank pain back pain Technique: Multiple axial, sagittal and coronal images of the lumbar spine have been obtained with the Siemens high-resolution 1.5 Shannon MRI scanner. Images obtained included T2 weighted fat suppressed sagittal sections, TR 3500, TE 46, T2 weighted coronal fat suppressed images, TR 3050, TE 84, T2-weighted transverse fat suppressed images, TR 30-60, TE 63, proton density transverse images, TR 4720, TE 46, and T1 weighted coronal images, TR 560, TE 13. Axial, sagittal and coronal images are obtained post intravenous injection 19 cc gadolinium. 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
[2024-05-21] MEDS: PROMETHAZINE INJ 6.25 MG in SODIUM CHLORIDE 0.9% 50 ML 2.5 MG IV ×3 (00:27→18:10)
[2024-05-21] MEDS: METOCLOPRAMIDE INJ 5 MG/ML VIAL 2 ML 10 MG IVP ×3 (05:37→21:24)
[2024-05-21] MEDS: THIAMINE INJ 500 MG in SODIUM CHLORIDE 0.9% 100 ML 210 MG IV ×3 (05:37→21:24)
[2024-05-21 06:11] LABS: Basophils % (Auto) 0 % (0-2.5); Eosinophils # (Auto) 0.1 Thou/mm3 (0.0-0.5); Eosinophils % (Auto) 1 % (0-10); Hematocrit 26.5 % (36.0-46.0); Immature Granulocytes % (Auto) 1 % (0-0); Immature Granulocytes Auto 0.05 Thou/mm3 (0.00-0.00); Lymphocytes # (Auto) 1.7 Thou/mm3 (1.0-4.8); Lymphocytes % (Auto) 22 % (10-50); Mean Corpuscular Volume 86 fL (80-100); Monocytes # (Auto) 0.9 Thou/mm3 (0.0-0.8); Monocytes % (Auto) 12 % (0-12); Neutrophils # (Auto) 4.8 Thou/mm3 (1.8-7.7); Neutrophils % (Auto) 64 % (37-80); Nucleated Red Blood Cell # 0.02 Thou/mm3 (0.00-0.00); Nucleated Red Blood Cell % 0 /100 WBC (0); Platelet Count 205 Thou/mm3 (140-440); RDW Standard Deviation 56.5 fL (36.4-46.3); White Blood Count 7.5 Thou/mm3 (3.6-11.0)
[2024-05-21 06:39] LABS: Alanine Aminotransferase 22 U/L (10-49); Albumin, Serum 2.5 gm/dL (3.5-5.0); Albumin/Globulin Ratio 1.1 (1.2-2.2); Alkaline Phosphatase 53 U/L (46-116); Anion Gap 10 (7-16); Aspartate Amino Transferase 46 U/L (0-34); BUN/Creatinine Ratio 10 Ratio (12-20); Bilirubin,Total 0.6 mg/dL (0.3-1.2); Blood Urea Nitrogen < 5 mg/dL (9-23); Calcium 8.5 mg/dL (8.3-10.6); Calcium (Corrected) 9.7 mg/dL (8.5-10.1); Carbon Dioxide 22.7 mMol/L (20.0-31.0); Chloride 111 mMol/L (98-107); Creatinine (Component) 0.5 mg/dL (0.6-1.3); Estimated Creatinine Clearance 136.7 mL/min (>60); Globulin 2.2 gm/dL (2.3-3.5); Glucose 107 mg/dL (74-106); Magnesium 1.8 mg/dL (1.6-2.6); Osmolality,Calculated 284 (275-295); Phosphorous 2.7 mg/dL (2.4-5.1); Potassium 2.8 mMol/L (3.4-5.1); Sodium 144 mMol/L (136-145); Total Protein 4.7 gm/dL (5.7-8.2); eGFR > 60 See Note
[2024-05-21] MEDS: ACETAMINOPHEN 325 MG TABLET 650 MG PO ×2 (07:42→18:13)
[2024-05-21] MEDS: POTASSIUM CHL 20 mEq IVPB 20 MEQ/100 ML BAG 50 MEQ IV ×2 (09:30→10:27)
[2024-05-21] MEDS: DEXTROSE 5%-LACTATED RINGERS 1,000 ML 100 ML IV ×2 (09:30→18:13)
[2024-05-21] MEDS: LEVOTHYROXINE INJ 100 mCg VIAL 50 MCG IV (09:31)
[2024-05-21] MEDS: PANTOPRAZOLE INJ 40 MG VIAL IVP ×2 (09:31→21:24)
[2024-05-21] MEDS: HEPARIN SOD INJ 5000 UNIT/ML VIAL SC ×2 (09:31→21:24)
[2024-05-21] MEDS: LIDOCAINE 5% 1 PATCH TOP (10:24)
--- NOTE | 2024-05-21 12:06 | PC.SS ---
SS met with pt to discuss SNF options and patient's choice is [place].
--- NOTE | 2024-05-21 14:00 | ESPR_ITS ---
<Statement entered by Иван Boland MD - 05/21/24 18:36> Patient was seen and examined at bedside. Patient reported that she has not vomited since last night. She is n.p.o. for the PICC line placement and will start the patient on TPN therapy as soon as possible. Today we noticed that her potassium level was 2.9 we will give her 40 mill equivalent IV and will continue replacement through the PICC line as soon as ready. BMP test will be ordered for 9 PM for the night team to follow-up in case the patient need for potassium. VP CLINICAL specialist recommended that no need for surgical intervention to remove the dermoid tumor at this less likely to be a reason for her persistent vomiting. - Patient's plan and care discussed with my attending, Dr. Adeel Boland MD Internal Medicine PGY-2 Documentation for date of: 05/21/24 Subjective Subjective Interval history: Patient examined at bedside today. No acute overnight events. Has not vomited and had diarrhea since yesterday. Is requesting ice chips at this time and something for her back pain. No other complaints at this time. Exam Vital Signs Temp Pulse Resp BP Pulse Ox O2 Del Method 96.9 F 102 H 18 116/68 99 Room Air 05/21/24 11:48 05/21/24 12:00 05/21/24 11:48 05/21/24 11:48 05/21/24 11:48 05/21/24 11:48 Narrative Exam General: AAOx3, NAD, patient throwing up when seen HEENT: Dry mucous membranes, conjunctiva clear, EOMI, PERRLA, Cardiovascular: S1, S2, radial pulses +2 bilat, RRR Pulmonary: CTAB bilat no cough, no wheezing GI: Slight tenderness to light palpitation, no guarding, rigidity, rebound tenderness or distension, bowel sounds present Extremities: No presence of trace or pitting edema in lower extremities bilaterally, dorsalis pedis pulses +2 bilaterally, L upper hand in site of IV erythematous and TTP Neuro: Some horizontal nystagmus with eye movements bilat, AAOx3 Psych: Good judgement, thought and behavior. Cooperative Objective Labs 05/24/24 07:51 05/24/24 09:38 Labs: Laboratory Results - last 24 hr 05/21/24 05:25 WBC 7.5 RBC 3.10 L Hgb 9.0 L Hct 26.5 L MCV 86 MCH 29.0 MCHC 34.0 RDW Std Deviation 56.5 H Plt Count 205 D Neut % (Auto) 64 Lymph % (Auto) 22 [place] % (Auto) 12 Eos % (Auto) 1 Baso % (Auto) 0 Neut # (Auto) 4.8 Lymph # (Auto) 1.7 [place] # (Auto) 0.9 H Eos # (Auto) 0.1 Baso # (Auto) 0.0 Immature Gran # (Auto) 0.05 H Absolute Nucleated RBC 0.02 H Immature Gran % 1 H Nucleated RBC % 0 Sodium 144 Potassium 2.8 L D Chloride 111 H Carbon Dioxide 22.7 Anion Gap 10 BUN < 5 L Creatinine 0.5 L Estim Creat Clear Calc 136.7 eGFR > 60 BUN/Creatinine Ratio 10 L Glucose 107 H D Calculated Osmolality 284 Calcium 8.5 Corrected Calcium 9.7 Phosphorus 2.7 Magnesium 1.8 Total Bilirubin 0.6 AST 46 H ALT 22 Alkaline Phosphatase 53 Total Protein 4.7 L Albumin 2.5 L Globulin 2.2 L Albumin/Globulin Ratio 1.1 L ABG Interpretation ABG results: 05/14/24 05/15/24 17:25 16:48 VBG pH 7.49 7.39 VBG pCO2 21 L 28 L VBG pO2 35 43 VBG Base Excess -5 L -7 L Quality Measures Quality Measures none Assessment & Plan Assessment Current Active Medications: Generic Name Dose Route Start Last Admin Trade Name Freq PRN Reason Stop Dose Admin Acetaminophen 650 mg 05/15/24 18:27 05/21/24 07:42 Acetaminophen 325 Mg Tablet PO 06/14/24 18:26 650 mg Q4HR PRN Administration Fever >101 or pain 1-3 Capsaicin 0 gm 05/20/24 16:15 05/20/24 17:42 Capsaicin Cr 60 Gm Tube TOP 06/19/24 16:14 Not Given QOD MEGAN Citric Acid/Sodium Citrate 30 ml 05/18/24 09:30 05/21/24 09:32 Citric Acid/Sodium Citr 15 Ml Udc (Bicitra) PO 06/17/24 09:29 Not Given BID MEGAN Dextrose 25 ml 05/15/24 05:02 Dextrose 50%-Water Inj 50 Ml Syringe IV 06/14/24 05:01 Q15MIN PRN BG 50-70 responsive npo pt Dextrose 50 ml 05/15/24 05:02 Dextrose 50%-Water Inj 50 Ml Syringe IV 06/14/24 05:01 Q15MIN PRN BG <50 OR BG <70 & pt unresponsive Glucagon 1 mg 05/15/24 05:02 Glucagon Inj 1 Mg Vial IM Q15MIN PRN BG <70, and no IV access Heparin Sodium (Porcine) 5,000 unit 05/15/24 09:00 05/21/24 09:31 Heparin Sod Inj 5000 Unit/Ml Vial SC 05/29/24 08:59 5,000 unit Q12HR MEGAN Administration Dextrose/Lactated Ringer's 1,000 mls @ 100 mls/hr 05/17/24 09:45 05/21/24 09:43 D5-Lr IV 06/16/24 09:44 Not Given .Q10H MEGAN Promethazine HCl 6.25 mg/ 50.25 mls @ 2.5 mls/min 05/17/24 20:30 05/21/24 12:57 Sodium Chloride IV 06/16/24 20:29 2.5 mls/min Q6HR MEGAN Administration Thiamine HCl 500 mg/ Sodium 105 mls @ 210 mls/hr 05/20/24 10:50 05/21/24 05:37 Chloride IV 05/22/24 06:29 210 mls/hr Q8HR MEGAN Administration Thiamine HCl 250 mg/ Sodium 102.5 mls @ 205 mls/hr 05/23/24 09:00 Chloride IV 05/27/24 09:29 QDAY MEGAN Insulin Human Regular 0 unit 05/21/24 12:00 05/21/24 12:52 Insulin Hum Regular 1 Unit/0.01 Ml (Per Unit) SC 06/20/24 11:59 Not Given Q6HR MEGAN Protocol Levothyroxine Sodium 50 mcg 05/15/24 12:30 05/21/24 09:31 Levothyroxine Inj 100 Mcg Vial IV 06/14/24 12:29 50 mcg QAM MEGAN Administration Lidocaine 1 patch 05/21/24 09:21 05/21/24 10:24 Lidocaine 5% 1 Patch TOP 06/20/24 09:20 1 patch UD PRN Administration PAIN Metoclopramide HCl 10 mg 05/15/24 06:00 05/21/24 05:37 Metoclopramide Inj 5 Mg/Ml Vial 2 Ml IVP 06/14/24 05:59 10 mg Q8HR MEGAN Administration Protocol Ondansetron HCl 4 mg 05/19/24 09:48 Ondansetron Inj 2 Mg/Ml Inj 2 Ml IV 06/18/24 09:47 Q6HR PRN NAUSEA OR VOMITING Protocol Pantoprazole Sodium 40 mg 05/15/24 09:00 05/21/24 09:31 Pantoprazole Inj 40 Mg Vial IVP 06/14/24 08:59 40 mg Q12HR MEGAN Administration Plan The patient is a 59-year-old female with a past medical history of hypertension, diabetes, hypothyroidism and hyperlipidemia who presented to the ED on 05/14/2024 with abdominal pain, nausea and vomiting that has persisted over the last 2 months. The patient has been admitted for management of intractable nausea and vomiting, starvation ketosis. #Intractable nausea and vomiting with severe dehydration #Anion gap metabolic acidosis #Starvation ketosis The patient presented with a 2-month history of nausea and vomiting, states that she has been unable to keep food or drinks as well as p.o. meds down. She was admitted about a month ago with similar symptoms. At that time, gastric emptying scan was attempted but could not be completed as patient vomited contrast. GI Dr. Reardon was consulted and patient had an upper endoscopy done which showed esophagitis and gastritis, confirmed with pathology-no malignancy. Patient was discharged on erythromycin with that she has been unable to take any of her p.o. meds as she still had persistent nausea and vomiting. ED, labs are significant for hypokalemia, metabolic acidosis with anion gap of 18 glucose 104. Patient received approximately 2.7 L of NS in the ED. No history of HIDA scan, possible biliary dyskinesia H.Pylori negative Discontinuing erythromycin at this time due to concern for diarrhea side effect Patient tolerated Zofran Reglan well Will need to further workup, symptoms could be due to central autonomic dysfunction, diabetic gastroparesis, or may be malignancy Will give patient steroids to help with symptoms Concern for patient, getting so much potassium, will want to get PICC line for patient moving forward Since patient having dermoid cyst, will consult [facility] for any connection to persistent nausea and vomiting due to compression of abdomen Will need to characterize dermoid cyst with imaging MRI abdomen pelvis shows 5.6 x 6 cm fat-containing mass likely dermoid tumor Concern for patient not getting nutrition, PICC line received and will start nutrition Patient has not vomited and nausea has improved, will try to see if patient can tolerate diet HIDA shows abnormal study however no CCK was given unable to determine ejection fraction, however AST, ALT, ALP within normal limits Plan: ?GI consulted, appreciate recs ?TPN initiated -F/u Autoimmune workup ?Reglan 10mg IV every 8 hours ?Promethazine 6.25mg IV q 6hr ?Zofran as needed ?PUD diet ?Protonix 40 mg twice daily #Horizontal nystagmus, bilateral, improving #Blurry vision, improving Patient could be experiencing nystagmus due to numerous antiemetics she has received Could have underlying autonomic dysfunction that is the cause of the symptoms above and also these new symptoms Patient could also be having blurry vision due to poor oral intake Head CT negative for acute hemorrhage, ischemia, mass effect MRI shows scattered punctate foci in frontal white matter, neuro not concerned for demyelinating pattern Neuro recommends MRI of the C/T-spine to rule out neuromyelitis optica spectrum disorder Neuro does not believe MRI of C-spine, T-spine and brain showed demyelinating pattern Could be due to nutrient deficiency Plan: ?Neuroconsult, appreciate recommendations ?Symptomatic control ?Thiamine replenishment #Electrolyte abnormalities #Hypokalemia secondary to #GI losses #Diarrhea Will administer IV replenishment as patient cannot tolerate p.o. Serum Potassium 2.8 Urine lytes unremarkable Patient has received over 200mEq of potassium Diarrhea could be due to large amounts of antiemetics/gastric motility Plan: ?Replete as needed ?Treat as above with antiemetics ?As above #History of dermoid cyst Diagnosed on previous admission, did not get transvaginal ultrasound Hyperechoic mass noted avascular in the region of the uterus 6.0 x 6.2 x 6.4 cm Unsure if this may be related to patient's nausea and vomiting, but will workup at this time Beta-Hcg and tumor markers unremarkable Need to see if tumor has any relation to persistent nausea vomiting and diarrhea Patient could have malignancy may be VIPoma or paraneoplastic syndrome OB consulted, do not think dermoid cyst is related to nausea and vomiting, patient offered to be dermoid cyst removed but will hold on further management at this time Plan: -As above #History of diabetes Patient has a history of diabetes, recently diagnosed in February. A1c on last admission in March was 10.3. Patient reports that she has not been taking any medications including insulin and her blood sugars have been within control, highest value has been 146. A1c today-6.8% Plan: -Monitor blood sugar closely and commence ISS if needed -Keep blood sugar within goal 140-180 -Hypoglycemic protocols in place #History of hypothyroidism The patient takes levothyroxine 125 mcg daily. Due to nausea and vomiting she has not taken consistently over the past 2 months. TSH: 125; Free T4: 0.47 Will replete with IV Synthroid (home dose 75 mcg) as patient cannot tolerate p.o. Repeat TSH 75; T4:0.76 Plan: ? Recheck TSH in 1 week to adjust Synthroid ? Continue Synthroid 50 mcg IV daily #Health Maintenance Disposition: Med telemetry DVT prophylaxis: Heparin GI prophylaxis: Protonix Diet: Clear liquid CODE STATUS: Full The patient's plan was discussed with attending Dr. Denis and senior resident Dr. Kya Solorio, , PGY-1 Attending Provider Attestation/Addendum 59-year-old female with multiple comorbidities including hypertension, hyperlipidemia, type 2 diabetes mellitus who presented to the ER or 05/14/2024 for intractable nausea and vomiting requiring prolonged hospitalization as patient failed multiple antiemetic therapies and workup including EGD all of which have been inconclusive. Of note, patient underwent lumbar MRI with findings of possible epidural abscesses and discussed with [facility] and [facility] neurosurgeon however did not recommend transfer recommended conservative management. Patient with diplopia/blurry vision and headache raising suspicion for pseudotumor cerebri subsequently started on acetazolamide with improvement I reviewed above note and agree with findings and plans. I have also personally examined the patient with medicine team and went over assessment and plan with medical team including customer operations intern and resident physician.
[2024-05-21 17:40] LABS: RA Screen Negative (Negative)
[2024-05-21] MEDS: FAT EMUL/OLIVE/SOY/PHOS 20% IV 500 ML 32 ML IV (18:09)
[2024-05-21] MEDS: POTASSIUM ACET IV (18:10)
[2024-05-21] MEDS: [UNRECOGNIZED DRUG - OTHER] IV (18:10)
[2024-05-21] MEDS: MAGNESIUM SULF IV (18:10)
[2024-05-21] MEDS: POTASSIUM PHOS IV (18:10)
--- NOTE | 2024-05-21 20:49 | ESPR_ITS ---
Documentation for date of: 05/21/24 Subjective Subjective Interval history: Patient has cystic duct obstruction on HIDA scan that is the reason low ejection fraction could be done Recommend surgical consultation for laparoscopic versus open cholecystectomy Exam Vital Signs Temp Pulse Resp BP Pulse Ox O2 Del Method 97.0 F 98 18 104/69 96 Room Air 05/21/24 16:00 05/21/24 16:26 05/21/24 16:00 05/21/24 16:00 05/21/24 16:00 05/21/24 16:00 Objective Labs 05/21/24 05:25 05/21/24 05:25 Labs: Laboratory Results - last 24 hr 05/19/24 05/21/24 17:58 05:25 WBC 7.5 RBC 3.10 L Hgb 9.0 L Hct 26.5 L MCV 86 MCH 29.0 MCHC 34.0 RDW Std Deviation 56.5 H Plt Count 205 D Neut % (Auto) 64 Lymph % (Auto) 22 [place] % (Auto) 12 Eos % (Auto) 1 Baso % (Auto) 0 Neut # (Auto) 4.8 Lymph # (Auto) 1.7 [place] # (Auto) 0.9 H Eos # (Auto) 0.1 Baso # (Auto) 0.0 Immature Gran # (Auto) 0.05 H Absolute Nucleated RBC 0.02 H Immature Gran % 1 H Nucleated RBC % 0 Sodium 144 Potassium 2.8 L D Chloride 111 H Carbon Dioxide 22.7 Anion Gap 10 BUN < 5 L Creatinine 0.5 L Estim Creat Clear Calc 136.7 eGFR > 60 BUN/Creatinine Ratio 10 L Glucose 107 H D Calculated Osmolality 284 Calcium 8.5 Corrected Calcium 9.7 Phosphorus 2.7 Magnesium 1.8 Total Bilirubin 0.6 AST 46 H ALT 22 Alkaline Phosphatase 53 Total Protein 4.7 L Albumin 2.5 L Globulin 2.2 L Albumin/Globulin Ratio 1.1 L Rheumatoid Factor Negative Impressions Impression: # Nonvisualization of the gallbladder with the cystic duct obstruction Recommend surgical consultation for laparoscopic versus open cholecystectomy ABG Interpretation ABG results: 05/14/24 05/15/24 17:25 16:48 VBG pH 7.49 7.39 VBG pCO2 21 L 28 L VBG pO2 35 43 VBG Base Excess -5 L -7 L Assessment & Plan A&P Narrative 1. Admitted with abdominal pelvic pain nausea vomiting dehydration electrolyte imbalance. 2 GI workup including recent endoscopy performed by Dr. Reardon indicates gastric motility disorder with gastroparesis. 3. Pelvic mass appearing to be dermoid with pain symptoms. Tumor markers including CA125 are low. 4. Recommend patient be seen by ELECTROPLATING SALES REPRESENTATIVE for consideration of the resection of the apparent dermoid mass since it is causing pelvic pain. I do not think is related to the upper GI symptoms, however. Time Spent With Patient Time: Total time spent is greater than 50% in coordination of care (as documented) at patient's floor/unit and/or counseling patient:
[2024-05-21] MEDS: LORazepam 0.5 MG TABLET 1 MG PO (21:24)
[2024-05-21 21:27] LABS: Albumin, Serum 2.6 gm/dL (3.5-5.0); Anion Gap 9 (7-16); BUN/Creatinine Ratio 8 Ratio (12-20); Blood Urea Nitrogen < 5 mg/dL (9-23); Calcium 8.2 mg/dL (8.3-10.6); Calcium (Corrected) 9.3 mg/dL (8.5-10.1); Carbon Dioxide 21.9 mMol/L (20.0-31.0); Chloride 111 mMol/L (98-107); Creatinine (Component) 0.6 mg/dL (0.6-1.3); Estimated Creatinine Clearance 113.9 mL/min (>60); Glucose 117 mg/dL (74-106); Osmolality,Calculated 281 (275-295); Sodium 142 mMol/L (136-145); eGFR > 60 See Note
--- NOTE | 2024-05-21 22:40 | PC.NURSE ---
Dr. Navarro called to discuss potassium replacement of patient; he is aware of recent potassium level of 3.0. Will start continue to administering TPN tonight and monitor potassium levels.
--- NOTE | 2024-05-21 23:04 | VVPN_ITS ---
Telemedicine visit statement This visit was conducted with the use of interactive audio and video telecommunications system that permits real time communication between the patient and the provider. Patient's verbal consent for virtual visit was obtained on 05/21/24 at 2304. Documentation for date of: 05/21/24 Subjective Subjective Interval history: Patient is in MedSurg. Her nausea and vomiting are somewhat better, no new symptoms reported. Virtual exam Vital Signs Temp Pulse Resp BP Pulse Ox O2 Del Method 97.0 F 98 18 104/69 96 Room Air 05/21/24 16:00 05/21/24 16:26 05/21/24 16:00 05/21/24 16:00 05/21/24 16:00 05/21/24 16:00 Objective Labs 05/23/24 04:55 05/23/24 04:55 Labs: Laboratory Results - last 24 hr 05/19/24 05/21/24 05/21/24 17:58 05:25 20:51 WBC 7.5 RBC 3.10 L Hgb 9.0 L Hct 26.5 L MCV 86 MCH 29.0 MCHC 34.0 RDW Std Deviation 56.5 H Plt Count 205 D Neut % (Auto) 64 Lymph % (Auto) 22 [place] % (Auto) 12 Eos % (Auto) 1 Baso % (Auto) 0 Neut # (Auto) 4.8 Lymph # (Auto) 1.7 [place] # (Auto) 0.9 H Eos # (Auto) 0.1 Baso # (Auto) 0.0 Immature Gran # (Auto) 0.05 H Absolute Nucleated RBC 0.02 H Immature Gran % 1 H Nucleated RBC % 0 Sodium 144 142 Potassium 2.8 L D 3.0 L Chloride 111 H 111 H Carbon Dioxide 22.7 21.9 Anion Gap 10 9 BUN < 5 L < 5 L Creatinine 0.5 L 0.6 Estim Creat Clear Calc 136.7 113.9 eGFR > 60 > 60 BUN/Creatinine Ratio 10 L 8 L Glucose 107 H D 117 H Calculated Osmolality 284 281 Calcium 8.5 8.2 L Corrected Calcium 9.7 9.3 Phosphorus 2.7 2.0 L Magnesium 1.8 Total Bilirubin 0.6 AST 46 H ALT 22 Alkaline Phosphatase 53 Total Protein 4.7 L Albumin 2.5 L 2.6 L Globulin 2.2 L Albumin/Globulin Ratio 1.1 L Rheumatoid Factor Negative ABG Interpretation ABG results: 05/14/24 05/15/24 17:25 16:48 VBG pH 7.49 7.39 VBG pCO2 21 L 28 L VBG pO2 35 43 VBG Base Excess -5 L -7 L Assessment & Plan Assessment 1) Intractable nausea and vomiting: Secondary to gastroparesis associated with diabetes mellitus Status: Some improvement noted Assessment and plan: Continue with symptomatic treatment : Reglan along with promethazine, IV erythromycin as per GI recommendation MRI brain did not show any significant white matter changes, not consistent with demyelinating disease. MRI of the C-spine and T-spine: Did not show any evidence of demyelination as seen in neuromyelitis optica spectrum disorder. FU with MRI abdomen to evaluate for the ovarian mass. (2) Diabetes mellitus type 2, insulin dependent: Status: Acute Assessment and plan: Continue to check fingerstick glucose and follow sliding scale insulin per protocol (3) Hypokalemia: Status: Acute Assessment and plan: Being monitored closely and getting replaced
[2024-05-22] VITALS (9 sets, daily range): BP systolic 92–127; BP diastolic 53–73; PULSE 81–116; RESP 11–19; TEMP 36–37.3; O2SAT 95–99; BMI 35.4
[2024-05-22] MEDS: PROMETHAZINE INJ 6.25 MG in SODIUM CHLORIDE 0.9% 50 ML 2.5 MG IV ×4 (00:49→18:11)
[2024-05-22 01:18] LABS: Anion Gap 8 (7-16); BUN/Creatinine Ratio 10 Ratio (12-20); Blood Urea Nitrogen < 5 mg/dL (9-23); Calcium 8.3 mg/dL (8.3-10.6); Carbon Dioxide 22.6 mMol/L (20.0-31.0); Chloride 113 mMol/L (98-107); Creatinine (Component) 0.5 mg/dL (0.6-1.3); Estimated Creatinine Clearance 136.7 mL/min (>60); Glucose 124 mg/dL (74-106); Osmolality,Calculated 285 (275-295); Potassium 2.9 mMol/L (3.4-5.1); Sodium 144 mMol/L (136-145); eGFR > 60 See Note
[2024-05-22] MEDS: POTASSIUM CHL 10 mEq IVPB 10 MEQ/100 ML BAG 100 MEQ IV ×4 (03:33→07:38)
[2024-05-22] MEDS: THIAMINE INJ 500 MG in SODIUM CHLORIDE 0.9% 100 ML 210 MG IV (06:05)
[2024-05-22] MEDS: METOCLOPRAMIDE INJ 5 MG/ML VIAL 2 ML 10 MG IVP ×3 (06:53→21:25)
--- NOTE | 2024-05-22 08:32 | PC.CM ---
Addendum entered by Laney Griffith RN 05/22/24 19:46: 1910 received call from Genesis at [facility], if the auth is obtained. I informed her unable to get hold of the insurance. She stated she is going to close the case. In am, call again to reopen the case and get the auth for transfer. Addendum entered by Laney Griffith RN 05/22/24 16:50: 1649 Received call from Leigh at [facility] that transfer is declined due to capacity. Addendum entered by Laney Griffith RN 05/22/24 16:34: 1634 face sheet sent to [facility] as per Genesis request. Addendum entered by Laney Griffith RN 05/22/24 16:31: 1627 called Cheryl with [facility] at [phone], left VM Addendum entered by Laney Griffith RN 05/22/24 16:28: 1622 called [facility], spoke to Genesis and initiate the transfer. She stated did I get the auth for transfer. I informed her that I can get the auth without accepting information. She stated she just want to know the name of the person and contact number that I contacted. I let her know that I will contact the insurance and call her back with the info. Addendum entered by Laney Griffith RN 05/22/24 16:19: [address] Solorio that 2 neuro-surgeons [facility] and [facility] are saying the same thing. Dr. Solorio wants me to still look for transferring the pt. Addendum entered by Laney Griffith RN 05/22/24 16:14: 1609 received call from Lianet at [facility]. She stated her neuro-surgery Dr. Wolfe review the images which was pushed over and he is saying there is no surgical intervention needed for the pt. It can be managed medically. Imaging can be repeated in 2 weeks to recheck. Transfer request is cancelled. Addendum entered by Laney Griffith RN 05/22/24 15:42: 1542 Called [facility], spoke to Stephanie for the update. She stated TC already presented the case to the neuro-surgery team and it's pending review now. Addendum entered by Laney Griffith RN 05/22/24 11:50: 1149 called [facility], spoke to Leigh and initiated the transfer request. She stated she will wait for the open bed and then present the case. Addendum entered by Laney Griffith RN 05/22/24 11:00: 1053 Called [facility] TC, spoke to Lianet and initiated the transfer request. She wants to speak to Dr. Solorio. Conference call connected. Addendum entered by Laney Griffith RN 05/22/24 10:43: 1043 called [facility] to initiate the transfer, left VM. Addendum entered by Laney Griffith RN 05/22/24 10:37: [address] Solorio and informed the outcome with [facility]. 0934 received call from [employer] at [facility]. She stated her neuro-surgery reviewed the case and stated there is no surgical intervention needed at this time, there is something else going on outside the spinal cords which is causing it because spinal cord is a sterile area. It can be medically managed with abx. Pt has other medical issues going on which needs to be managed. Therefore, transfer request is declined. 0916 received call from [employer] at [facility]. Clinicals given. She wants to speak to Dr. Solorio. Conference call connected. Original Note: 0832 clinicals sent to [facility] and [facility] TC. [address] Solorio that pt needs stat transfer for epidural abscess posterior to L1-L5 needs neuro-surgical services.
--- NOTE | 2024-05-22 09:11 | PC.SS ---
Follow up note: Pt is higher level of care transfer.
[2024-05-22 09:14] LABS: Basophils # (Auto) 0.1 Thou/mm3 (0.0-0.2); Basophils % (Auto) 1 % (0-2.5); Eosinophils # (Auto) 0.4 Thou/mm3 (0.0-0.5); Eosinophils % (Auto) 8 % (0-10); Hematocrit 32.7 % (36.0-46.0); Hemoglobin 11.1 g/dL (12.0-16.0); Immature Granulocytes % (Auto) 1 % (0-0); Immature Granulocytes Auto 0.03 Thou/mm3 (0.00-0.00); Lymphocytes # (Auto) 1.8 Thou/mm3 (1.0-4.8); Lymphocytes % (Auto) 37 % (10-50); Mean Corpuscular HGB Conc 33.9 g/dl (31.0-37.0); Mean Corpuscular Hemoglobin 29.8 pg (25.0-35.0); Mean Corpuscular Volume 88 fL (80-100); Monocytes # (Auto) 0.6 Thou/mm3 (0.0-0.8); Monocytes % (Auto) 13 % (0-12); Neutrophils % (Auto) 41 % (37-80); Nucleated Red Blood Cell # 0.05 Thou/mm3 (0.00-0.00); Nucleated Red Blood Cell % 1 /100 WBC (0); Platelet Count 231 Thou/mm3 (140-440); RDW Standard Deviation 61.4 fL (36.4-46.3); Red Blood Count 3.73 Miln/mm3 (4.00-5.20); White Blood Count 4.9 Thou/mm3 (3.6-11.0)
[2024-05-22] MEDS: LEVOTHYROXINE INJ 100 mCg VIAL 50 MCG IV (09:33)
[2024-05-22] MEDS: HEPARIN SOD INJ 5000 UNIT/ML VIAL SC ×2 (09:34→21:09)
[2024-05-22] MEDS: PANTOPRAZOLE INJ 40 MG VIAL IVP ×2 (09:34→21:04)
[2024-05-22] MEDS: CAPSAICIN CR 60 GM TUBE TOP (09:38)
[2024-05-22] MEDS: PIPER/TAZO 3.375 GM 3.375 GM/50 ML BAG IV ×3 (09:39→23:31)
[2024-05-22 09:49] LABS: Alanine Aminotransferase 32 U/L (10-49); Albumin/Globulin Ratio 1.3 (1.2-2.2); Alkaline Phosphatase 68 U/L (46-116); Anion Gap 10 (7-16); Aspartate Amino Transferase 81 U/L (0-34); BUN/Creatinine Ratio 8 Ratio (12-20); Bilirubin,Total 0.4 mg/dL (0.3-1.2); Blood Urea Nitrogen < 5 mg/dL (9-23); C-Reactive Protein 1.3 mg/dL (0.0-0.9); Calcium 8.6 mg/dL (8.3-10.6); Calcium (Corrected) 9.4 mg/dL (8.5-10.1); Chloride 109 mMol/L (98-107); Creatinine (Component) 0.6 mg/dL (0.6-1.3); Estimated Creatinine Clearance 113.9 mL/min (>60); Globulin 2.3 gm/dL (2.3-3.5); Glucose 145 mg/dL (74-106); Magnesium 1.7 mg/dL (1.6-2.6); Osmolality,Calculated 281 (275-295); Phosphorous 1.8 mg/dL (2.4-5.1); Potassium 3.5 mMol/L (3.4-5.1); Sodium 141 mMol/L (136-145); Total Protein 5.3 gm/dL (5.7-8.2); eGFR > 60 See Note
[2024-05-22 10:33] LABS: Sed Rate (ESR) 29 mm/hr (0-30)
[2024-05-22] MEDS: VANCOMYCIN/NS 1 GM IVPB 200 ML IV ×2 (10:40→21:28)
[2024-05-22] MEDS: ACETAzolaMIDE SOD 500 MG in SODIUM CHLORIDE 0.9% (P) 50 ML 100 MG IV ×2 (10:40→20:53)
--- NOTE | 2024-05-22 12:03 | ESPR_ITS ---
Documentation for date of: 05/22/24 Subjective Subjective Interval history: Epidural abscess being managed with change of antibiotics ID is on board Other issues had to take a backseat insulin possible gallbladder surgery because of the known visualization of the gallbladder and cystic duct obstruction Exam Vital Signs Temp Pulse Resp BP Pulse Ox O2 Del Method 99.2 F 95 19 98/62 98 Room Air 05/22/24 08:00 05/22/24 08:00 05/22/24 08:00 05/22/24 08:00 05/22/24 08:00 05/22/24 08:00 Objective Labs 05/22/24 08:57 05/22/24 08:57 Labs: Laboratory Results - last 24 hr 05/19/24 05/21/24 05/22/24 17:58 20:51 00:30 WBC RBC Hgb Hct MCV MCH MCHC RDW Std Deviation Plt Count Neut % (Auto) Lymph % (Auto) [place] % (Auto) Eos % (Auto) Baso % (Auto) Neut # (Auto) Lymph # (Auto) [place] # (Auto) Eos # (Auto) Baso # (Auto) Immature Gran # (Auto) Absolute Nucleated RBC Immature Gran % Nucleated RBC % ESR Sodium 142 144 Potassium 3.0 L 2.9 L Chloride 111 H 113 H Carbon Dioxide 21.9 22.6 Anion Gap 9 8 BUN < 5 L < 5 L Creatinine 0.6 0.5 L Estim Creat Clear Calc 113.9 136.7 eGFR > 60 > 60 BUN/Creatinine Ratio 8 L 10 L Glucose 117 H 124 H Calculated Osmolality 281 285 Calcium 8.2 L 8.3 Corrected Calcium 9.3 Phosphorus 2.0 L Magnesium Total Bilirubin AST ALT Alkaline Phosphatase C-Reactive Prot, Quant Total Protein Albumin 2.6 L Globulin Albumin/Globulin Ratio Rheumatoid Factor Negative 05/22/24 08:57 WBC 4.9 RBC 3.73 L Hgb 11.1 L D Hct 32.7 L MCV 88 MCH 29.8 MCHC 33.9 RDW Std Deviation 61.4 H Plt Count 231 Neut % (Auto) 41 Lymph % (Auto) 37 [place] % (Auto) 13 H Eos % (Auto) 8 Baso % (Auto) 1 Neut # (Auto) 2.0 Lymph # (Auto) 1.8 [place] # (Auto) 0.6 Eos # (Auto) 0.4 Baso # (Auto) 0.1 Immature Gran # (Auto) 0.03 H Absolute Nucleated RBC 0.05 H Immature Gran % 1 H Nucleated RBC % 1 H ESR 29 Sodium 141 Potassium 3.5 D Chloride 109 H Carbon Dioxide 22.0 Anion Gap 10 BUN < 5 L Creatinine 0.6 Estim Creat Clear Calc 113.9 eGFR > 60 BUN/Creatinine Ratio 8 L Glucose 145 H Calculated Osmolality 281 Calcium 8.6 Corrected Calcium 9.4 Phosphorus 1.8 L Magnesium 1.7 Total Bilirubin 0.4 AST 81 H ALT 32 Alkaline Phosphatase 68 D C-Reactive Prot, Quant 1.3 H Total Protein 5.3 L Albumin 3.0 L Globulin 2.3 Albumin/Globulin Ratio 1.3 Rheumatoid Factor Impressions Impression: # Cystic duct obstruction and known visualization of the gallbladder # Epidural abscess # Nausea vomiting secondary to gastrointestinal motility disorder Management as per ID ABG Interpretation ABG results: 05/14/24 05/15/24 17:25 16:48 VBG pH 7.49 7.39 VBG pCO2 21 L 28 L VBG pO2 35 43 VBG Base Excess -5 L -7 L Assessment & Plan A&P Narrative 1. Admitted with abdominal pelvic pain nausea vomiting dehydration electrolyte imbalance. 2 GI workup including recent endoscopy performed by Dr. Reardon indicates gastric motility disorder with gastroparesis. 3. Pelvic mass appearing to be dermoid with pain symptoms. Tumor markers including CA125 are low. 4. Recommend patient be seen by STATISTICS TUTOR for consideration of the resection of the apparent dermoid mass since it is causing pelvic pain. I do not think is related to the upper GI symptoms, however. Time Spent With Patient Time: Total time spent is greater than 50% in coordination of care (as documented) at patient's floor/unit and/or counseling patient:
--- NOTE | 2024-05-22 13:05 | PD.RESDS ---
Planned Discharge Date 05/22/24 DS: Providers Provider Date of admission: 05/15/24 01:22 Primary care physician: Physician No Primary/Family Admitting Provider: Lonny Fajardo MD Attending Provider on Admission: Oumou Denis MD Consults: 05/15/24 07:35 Referral Registered Dietitian Stat Comment: 05/15/24 08:58 Consult to Gastroenterology Routine Comment: Persistant N/V Consulting Provider: Arnie Reardon 05/17/24 12:14 Consult to Neurology / Tele-Neurology Routine Comment: Consulting Provider: Negrito Hernandez 05/19/24 14:32 Consult to Oncology Routine Comment: Dermoid cyst with associated intracable NVD Consulting Provider: Peterson Patterson Attending Provider on DC: Oumou Denis MD Discharging Provider: Oumou Denis MD DS: Diagnosis Problem List Completed Was Problem List Reviewed/Reconciled?: Yes Hospital Course Hospital Course Hospital course: 59-year-old female with a past medical history of hypertension, diabetes, hypothyroidism, dermoid cyst and hyperlipidemia who was admitted on 05/14/2024 for intractable nausea, vomiting and diarrhea. Patient was recently admitted at [facility] for evaluation of starvation ketosis, was taken to the ICU for further evaluation, did not require insulin drip and was transferred back to floors for evaluation of tractable nausea and vomiting. Patient was unable to tolerate gastric emptying study in the past, and EGD findings showed reflux esophagitis and was discharged on Reglan and erythromycin p.o. When coming to the ED this time she arrived afebrile and hypertensive. She was worked up and Labs showed WBC 6.8 Hgb 14.1 PLT 284 NA 130 5K2.5 CL 99 bicarb 18.2 anion gap 18 BUN 5 CR 0.9 glucose 104 calcium 10.2 lipase 71 beta hydroxybutyrate 4.6 UA showed 1+ protein 3+ ketones 12 WBC, urine hCG positive. VBG showed a pCO2 of 21 with a base excess of -5. EKG showed sinus rhythm with QTc of 468. The patient received 2.7 L of IV fluids, Zofran and potassium and was admitted for management of intractable nausea and vomiting/starvation ketosis. While on the floors patient was having persistent hypokalemia, despite having not vomited. Patient began to vomit which worsened hypokalemia and patient was continuously repleted potassium. A number of agents including promethazine, Reglan, Zofran, erythromycin (discontinued because of worsening diarrhea), Ativan, capsaicin were given to the patient to manage patient symptoms. Patient went in and out of having nausea and vomiting symptoms that she had said it can happen at any time, can awaken her from sleep and can happen with fluid. Patient reports that she had unable to tolerate p.o. to the point she was not taking any her p.o. medicines. GI and neurology were consulted for further evaluation of etiology of persistent nausea, vomiting and diarrhea and newly seen horizontal bilateral nystagmus and blurry vision. The recommendations included symptomatic control and further imaging studies. MRI of C-spine, T-spine and brain were done to look for any ideology such as mass effect, multiple sclerosis or any other pathology that could be affecting brain producing stimulation of vomiting center, but those images were unremarkable. Another avenue that was looked into was possible relation of dermoid cyst relation to nausea and vomiting. Oncology was consulted who had recommended patient to get an CONTINUOUS IMPROVEMENT COORDINATOR consult. CONTINUOUS IMPROVEMENT COORDINATOR was consulted, recommended tumor markers and MRI of abdomen pelvis. Abdomen pelvis showed a 5.6 x 6.0 fat-containing mass consistent with dermoid tumor which did not require any surgical intervention at the time. Serum tumor markers were obtained including beta-hCG, AFP, CEA, CA125 which were all unremarkable although patient had beta-hCG of 10 in the urine. Patient had began to complain of back pain throughout the course of admission, and lumbar MRI was eventually done which showed focal lumbar disc bulges each 5 mm at the L4-L5 and L2-L3 levels, findings most consistent with osteomyelitis discitis L2-L3, L3-L4, and epidural abscess posterior to L1-L5 as above. Patient had not complained of any fevers, chills also patient did not have white count or fever throughout admission, but did complain of back pain and has some focal neurologic deficits including some numbness and tingling along right IT band, reduced range of motion upon lifting right lower extremity. Radiology was spoken with who believe patient does have epidural abscess, however, since there is likely no evident compression at this time, is okay with conservative management with abx. Immediate transfer for neurosurgical evaluation was put in. Patient did have ESR CRP, and blood cultures drawn and ESR CRP showed results of 24 and 1.3 respectively and was also put on broad-spectrum antibiotics. At this time unable to determine if symptoms are related to epidural abscess, unlikely but patient will need to have this looked into further. Pseudotumor cerebri was possibly discussed as a differential, however was given Diamox to help patient at this time. Follow up with PCP within one week of DC Return to ER if symptoms return/worsen #Epidural abscess with neurological deficits #Osteomyelitis discitis #Intractable nausea and vomiting with severe dehydration #? Pseudotumor cerebri #Anion gap metabolic acidosis #Starvation ketosis #Horizontal nystagmus, bilateral #Blurry vision #Electrolyte abnormalities #Hypokalemia secondary to #GI losses #Diarrhea #History of dermoid cyst #History of diabetes #History of hypothyroidism Patient seen and care discussed with my senior resident, Dr. Boland , and my attending physician, Dr. Adeel Solorio, PGY-1 Time Spent with Patient Time attestation: Total time spent providing and/or coordinating discharge services: Time spent: Greater than 30 minutes Exam Vital Signs Temp Pulse Resp BP Pulse Ox O2 Del Method 97.1 F 96 19 92/62 98 Room Air 05/22/24 12:00 05/22/24 12:00 05/22/24 12:00 05/22/24 12:00 05/22/24 12:00 05/22/24 12:00 Narrative Exam General: AAOx3, NAD, patient throwing up when seen HEENT: Dry mucous membranes, conjunctiva clear, EOMI, PERRLA, Cardiovascular: S1, S2, radial pulses +2 bilat, RRR Pulmonary: CTAB bilat no cough, no wheezing GI: Slight tenderness to light palpitation, no guarding, rigidity, rebound tenderness or distension, bowel sounds present Extremities: No presence of trace or pitting edema in lower extremities bilaterally, dorsalis pedis pulses +2 bilaterally, L upper hand in site of IV erythematous and TTP Back: Left lower back TTP along paraspinals and lateral fascia, skin taut, no obvious erythema or skin changes Neuro: Some horizontal nystagmus with eye movements bilat, AAOx3 Psych: Good judgement, thought and behavior. Cooperative Discharge Plan Plan Patient condition on transfer: Stable Prescriptions/Referrals Prescriptions/Med Rec: No Action promethazine 25 mg suppository 25 mg MI Q6H PRN (Reason: nausea and vomiting) Qty: 12 2RF ondansetron 4 mg tablet,disintegrating 4 mg PO Q6H Qty: 60 5RF (DME) blood-glucose meter [FreeStyle Lite Meter] Kit See Rx Instructions .Route Qty: 1 0RF Rx Instructions: As directed (DME) lancets [FreeStyle Lancets] 28 gauge misc See Rx Instructions .Route Qty: 100 0RF Rx Instructions: As directed (DME) FreeStyle Lite Strips Strip See Rx Instructions .Route Qty: 100 0RF Rx Instructions: As directed (DME) pen needle, diabetic [Ultra-Thin II Ins Pen Jay] 29 gauge x 1/2 needle See Rx Instructions .Route Qty: 100 0RF Rx Instructions: As directed scopolamine base 1 mg over 3 days patch 3 day 1 patch transdermal Q3D PRN (Reason: nausea) Qty: 4 0RF Rx Instructions: May causes sedation, Avoid driving or other activities requiring alertness. lovastatin 40 mg Tablet 40 mg PO QDAY levothyroxine 125 mcg Tablet 125 mcg PO QDAY hydrochlorothiazide 25 mg Tablet 25 mg PO QAM erythromycin ethylsuccinate 400 mg/5 mL suspension for reconstitution 400 mg PO TID Qty: 100 0RF insulin glargine 100 unit/mL (3 mL) insulin pen, sensor 5 unit subcut QDAY Qty: 15 0RF alcohol swabs [Alcohol Prep Pads] Pads, Medicated See Rx Instructions .ROUTE .COMPLEX Qty: 200 0RF Rx Instructions: Apply before injections or glucose check. (DME) lancets 28 gauge misc See Rx Instructions .Route Qty: 100 0RF Rx Instructions: As directed metoclopramide HCl 5 mg/5 mL solution 10 mg PO Q6H PRN (Reason: nausea and vomiting) Qty: 473 0RF sucralfate [Carafate] 100 mg/mL suspension 10 ml PO BID Qty: 300 0RF acetaminophen-codeine 300-30 mg tablet 2 tab PO TID MDD 6 PRN (Reason: pain) Qty: 20 0RF cefdinir 300 mg capsule 300 mg PO BID Qty: 14 0RF potassium chloride 20 mEq tablet extended release 20 meq PO QDAY Qty: 7 0RF Referrals: No Primary/Family,Physician [Primary Care Provider] - Patient/Caregiver Discharge Instructions Print Language: Danish Quality Discharge Quality Measures VTE prophylaxis (Heparin ) Attestestation MD Attestation 59-year-old female with multiple comorbidities including hypertension, hyperlipidemia, type 2 diabetes mellitus who presented to the ER or 05/14/2024 for intractable nausea and vomiting requiring prolonged hospitalization as patient failed multiple antiemetic therapies and workup including EGD all of which have been inconclusive. Of note, patient underwent lumbar MRI with findings of possible epidural abscesses and discussed with [facility] neurosurgeon however did not recommend transfer recommended conservative management. Patient with diplopia/blurry vision and headache raising suspicion for pseudotumor cerebri subsequently started on acetazolamide with improvement I reviewed above note and agree with findings and plans. I have also personally examined the patient with medicine team and went over assessment and plan with medical team including athletic training internship and resident physician.
[2024-05-22] MEDS: POTASSIUM ACET IV (14:12)
[2024-05-22] MEDS: MAGNESIUM SULF IV (14:12)
[2024-05-22] MEDS: [UNRECOGNIZED DRUG - OTHER] IV (14:12)
[2024-05-22] MEDS: POTASSIUM PHOS IV (14:12)
--- NOTE | 2024-05-22 14:47 | ESPR_ITS ---
Subjective Subjective Interval history: asked to see for empiric rx of epidural abscess on imaging. here for other reasons. has htn, hld and hypothyroid has been on iv ppi and iv thyroid rx on classic vanco/zosyn Exam Vital Signs Temp Pulse Resp BP Pulse Ox O2 Del Method 97.1 F 96 19 92/62 98 Room Air 05/22/24 12:00 05/22/24 12:00 05/22/24 12:00 05/22/24 12:00 05/22/24 12:00 05/22/24 12:00 Narrative Exam benign but obese abd. 212 lbs lady. hx noted. presumptive gastroparesis noted. improved at this time Objective - Internal Medicine Labs 05/22/24 08:57 05/22/24 08:57 Labs: Laboratory Results - last 24 hr 05/19/24 05/21/24 05/22/24 17:58 20:51 00:30 WBC RBC Hgb Hct MCV MCH MCHC RDW Std Deviation Plt Count Neut % (Auto) Lymph % (Auto) [place] % (Auto) Eos % (Auto) Baso % (Auto) Neut # (Auto) Lymph # (Auto) [place] # (Auto) Eos # (Auto) Baso # (Auto) Immature Gran # (Auto) Absolute Nucleated RBC Immature Gran % Nucleated RBC % ESR Sodium 142 144 Potassium 3.0 L 2.9 L Chloride 111 H 113 H Carbon Dioxide 21.9 22.6 Anion Gap 9 8 BUN < 5 L < 5 L Creatinine 0.6 0.5 L Estim Creat Clear Calc 113.9 136.7 eGFR > 60 > 60 BUN/Creatinine Ratio 8 L 10 L Glucose 117 H 124 H Calculated Osmolality 281 285 Calcium 8.2 L 8.3 Corrected Calcium 9.3 Phosphorus 2.0 L Magnesium Total Bilirubin AST ALT Alkaline Phosphatase C-Reactive Prot, Quant Total Protein Albumin 2.6 L Globulin Albumin/Globulin Ratio Rheumatoid Factor Negative 05/22/24 08:57 WBC 4.9 RBC 3.73 L Hgb 11.1 L D Hct 32.7 L MCV 88 MCH 29.8 MCHC 33.9 RDW Std Deviation 61.4 H Plt Count 231 Neut % (Auto) 41 Lymph % (Auto) 37 [place] % (Auto) 13 H Eos % (Auto) 8 Baso % (Auto) 1 Neut # (Auto) 2.0 Lymph # (Auto) 1.8 [place] # (Auto) 0.6 Eos # (Auto) 0.4 Baso # (Auto) 0.1 Immature Gran # (Auto) 0.03 H Absolute Nucleated RBC 0.05 H Immature Gran % 1 H Nucleated RBC % 1 H ESR 29 Sodium 141 Potassium 3.5 D Chloride 109 H Carbon Dioxide 22.0 Anion Gap 10 BUN < 5 L Creatinine 0.6 Estim Creat Clear Calc 113.9 eGFR > 60 BUN/Creatinine Ratio 8 L Glucose 145 H Calculated Osmolality 281 Calcium 8.6 Corrected Calcium 9.4 Phosphorus 1.8 L Magnesium 1.7 Total Bilirubin 0.4 AST 81 H ALT 32 Alkaline Phosphatase 68 D C-Reactive Prot, Quant 1.3 H Total Protein 5.3 L Albumin 3.0 L Globulin 2.3 Albumin/Globulin Ratio 1.3 Rheumatoid Factor ABG Interpretation ABG results: 05/14/24 05/15/24 17:25 16:48 VBG pH 7.49 7.39 VBG pCO2 21 L 28 L VBG pO2 35 43 VBG Base Excess -5 L -7 L Assessment & Plan A&P Narrative mild anemia presumptive gastroparesis dermoid tumor hypothyroid htn hld possible epidural abscess with neg cx on empiric vanco/zosyn ideally, this is drained or pt is referred for such so that if the referral is denied, one can know why that is the case ok to change zosyn to rocephin and vanco to po doxy and see if other meds can be changed to po too. if empiric rx is to be the goal, then use agents that are supported by micro or are easy to use. she likely needs dermoid addressed at some point as well. Time Spent With Patient Time: Total time spent is greater than 50% in coordination of care (as documented) at patient's floor/unit and/or counseling patient:
[2024-05-22 16:15] LABS: Hepatitis A Antibody IgM Non Reactive (Non React); Hepatitis B Core Antibody IgM Non Reactive (Non React); Hepatitis B Surface Antigen Non Reactive (Non React); Hepatitis C Antibody Non Reactive (Non React)
[2024-05-22 18:09] LABS: HIV (1&2) Antibody Rapid Non-Reactive
--- NOTE | 2024-05-22 18:09 | ESCONSULT_ITS ---
RE: KIM MCCAULEY : 1965 DATE OF CONSULTATION: 05/22/2024 REFERRING PHYSICIAN: Dr. Johnson. REASON FOR CONSULTATION: Epidural abscess L1-L5. HISTORY OF PRESENT ILLNESS: The patient admitted with GI upset and non-treated diabetes with an A1c of 6.8. She has hypertension and hyperlipidemia. She had not been able to take any medications prior to admission because of her nausea and vomiting, which she attributed to gastroparesis by GI. Her diabetic control is fairly good. Her A1c is 6.8. PAST MEDICAL HISTORY: She has hypothyroid, mildly anemic and she is on IV PPI, IV thyroid medicine and other medications all given intravenously. SURGICAL HISTORY: Includes left ankle surgery, left knee surgeries, right shoulder surgery twice and carpal tunnel release on the right as well. SOCIAL HISTORY: She used to work at a warehouse. She is a nonsmoker. ALLERGIES: NONE NOTED. FAMILY HISTORY: Notable for being adopted. IMMUNIZATIONS: She last had a tetanus vaccine about 4 years ago. She does not take a flu shot every year. She has had 4 COVID vaccines and does not recall having a pneumococcal vaccine. It would not be routine unless she considers her diabetes as her indication. PHYSICAL EXAMINATION: GENERAL: The patient is pleasant [id number]-zyszkeeds woman, looking approximately her stated age of 59. HEENT: Benign. HEART: Benign. LUNGS: Benign. ABDOMEN: Benign. She was here for abdominal pain and nausea and vomiting, but instead has been found to have an epidural abscess. All cultures have been negative, so treatment is going to be highly empiric. I usually will try to drain one of this and so she will be transferred to a place with neurosurgery expertise. Our surgeons do an excellent job, but they are usually limited to minor cases. Epidural abscesses can be drained by neurosurger in [place] or in [place], but she has to go there. I assume her GI issues may have taken precedence. They seem to be somewhat better at this time. I am going to recommend a change in antibiotics from vancomycin and Zosyn to Rocephin and doxycycline along with getting some cultures of the drainage so that we can guide her treatment. Ultimately, she will need removal of the dermoid tumor as well and continue to control her hypertension, hyperlipidemia, diabetes and thyroid disease. Anemia will likely resolve with the control of the other health problems, although there is no guarantee of that. I will check on her superficially on Monday. DT: 15:01:50 TT: 15:43:00 Ref: [id number] - TID: [id number] MTDD
[2024-05-22] MEDS: MORPHINE SULF INJ 10 MG/ML VIAL 2 MG IVP (18:23)
--- NOTE | 2024-05-22 18:46 | PC.NURSE ---
Dr. Solorio made aware that pt had vaginal bleeding time 1 this evening when she went pee, no new orders received
--- NOTE | 2024-05-22 21:15 | PC.NURSE ---
seen and examined by Dr. Reardon.
--- NOTE | 2024-05-22 21:34 | PD.NEUROPROG ---
Documentation for date of: 05/22/24 Subjective Subjective Interval history: Ms. Palumbo was seen in [facility] today, doing little better as the nausea and vomiting are controlled with Phenergan, she is now eating. c/o pain in the lower back and right LE and very weak. Intermittent paresthesias in the extremities in different areas in patch distribution. Exam - Neurology Vital Signs Temp Pulse Resp BP Pulse Ox O2 Del Method 97.9 F 96 16 98/53 L 95 Room Air 05/22/24 20:00 05/22/24 20:00 05/22/24 20:00 05/22/24 20:00 05/22/24 20:00 05/22/24 20:00 Narrative Exam GENERAL APPEARANCE: Well hydrated, well-nourished in no acute distress. HEENT: Normocephalic, atraumatic, extraocular movements intact. Pupils: Equal reacting to light and accommodation, horizontal nystagmus noted NECK: Supple, no JVD or bruits. CARDIOVASULAR: Heart: S1, S2 heard, regular without S3-S4 or murmur no rubs or gallops. LUNGS/CHEST: Clear to auscultation bilaterally. No rails, rhonchi, or wheezing. Normal inspection. ABDOMEN: Soft, nontender, with normal bowel sounds. No pulsatile masses. No rebound, rigidity, or guarding. Normal inspection and palpation. EXTREMITIES: Normal inspection and palpation. No edema, clubbing or cyanosis. SKIN: Warm and dry without rashes. Normal inspection. MUSCULOSKELETAL: No cervical, thoracic, lumbar or midline bony tenderness. Normal inspection. NEURO: Alert, awake and oriented x3. Cranial nerves: II through XII grossly intact. Speech and language: Normal with no dysarthria or dysphasia. Motor system: Tone and bulk: Normal: Strength: significant weakness in the right LE with SLR positive; No pronator drift noted. Deep tendon reflexes: 2+ bilaterally symmetrical. Plantar reflex: Downgoing bilaterally. Sensory system: subjective paresthesias in the right LE noted. Coordination: Intact to [id number]-[id number] test bilaterally. No ataxia, no dysmetria, or dysdiadochokinesia noted. No intention tremors noted. Gait: Not tested. No signs of meningeal irritation noted. PSYCHIATRIC: Normal mood and affect. Objective Labs 05/22/24 08:57 05/22/24 08:57 Labs: Laboratory Results - last 24 hr 05/22/24 05/22/24 00:30 08:57 WBC 4.9 RBC 3.73 L Hgb 11.1 L D Hct 32.7 L MCV 88 MCH 29.8 MCHC 33.9 RDW Std Deviation 61.4 H Plt Count 231 Neut % (Auto) 41 Lymph % (Auto) 37 [place] % (Auto) 13 H Eos % (Auto) 8 Baso % (Auto) 1 Neut # (Auto) 2.0 Lymph # (Auto) 1.8 [place] # (Auto) 0.6 Eos # (Auto) 0.4 Baso # (Auto) 0.1 Immature Gran # (Auto) 0.03 H Absolute Nucleated RBC 0.05 H Immature Gran % 1 H Nucleated RBC % 1 H ESR 29 Sodium 144 141 Potassium 2.9 L 3.5 D Chloride 113 H 109 H Carbon Dioxide 22.6 22.0 Anion Gap 8 10 BUN < 5 L < 5 L Creatinine 0.5 L 0.6 Estim Creat Clear Calc 136.7 113.9 eGFR > 60 > 60 BUN/Creatinine Ratio 10 L 8 L Glucose 124 H 145 H Calculated Osmolality 285 281 Calcium 8.3 8.6 Corrected Calcium 9.4 Phosphorus 1.8 L Magnesium 1.7 Total Bilirubin 0.4 AST 81 H ALT 32 Alkaline Phosphatase 68 D C-Reactive Prot, Quant 1.3 H Total Protein 5.3 L Albumin 3.0 L Globulin 2.3 Albumin/Globulin Ratio 1.3 Hepatitis A IgM Ab Non Reactive Hep Bs Antigen Non Reactive Hep B Core IgM Ab Non Reactive Hepatitis C Antibody Non Reactive HIV 1&2 Antibody Rapid Non-Reactive ABG Interpretation ABG results: 05/14/24 05/15/24 17:25 16:48 VBG pH 7.49 7.39 VBG pCO2 21 L 28 L VBG pO2 35 43 VBG Base Excess -5 L -7 L Assessment & Plan Assessment and plan (1) Intractable nausea and vomiting: Status: Acute (2) Teratoma of ovary: Status: Acute Assessment and plan: FU with MRI abdomen (3) Diabetes mellitus type 2, insulin dependent: Status: Acute Assessment and plan: Continue to check fingerstick glucose and follow sliding scale insulin per protocol (4) Hypokalemia: Status: Acute Assessment and plan: Being monitored closely and getting replaced (5) Lumbar disc disease: Status: Acute Assessment and plan: with discitis. Continue with IV antibiotics transfer attempted but not successful.
[2024-05-22] MEDS: LORazepam 0.5 MG TABLET 1 MG PO (22:58)
[2024-05-23] VITALS (8 sets, daily range): BP systolic 103–120; BP diastolic 62–66; PULSE 90–97; RESP 15–21; TEMP 36.1–36.8; O2SAT 93–98
[2024-05-23] MEDS: PROMETHAZINE INJ 6.25 MG in SODIUM CHLORIDE 0.9% 50 ML 2.5 MG IV ×4 (00:03→17:35)
[2024-05-23] MEDS: MORPHINE SULF INJ 10 MG/ML VIAL 2 MG IVP (05:29)
[2024-05-23 05:58] LABS: Basophils # (Auto) 0.1 Thou/mm3 (0.0-0.2); Basophils % (Auto) 1 % (0-2.5); Eosinophils # (Auto) 0.4 Thou/mm3 (0.0-0.5); Eosinophils % (Auto) 6 % (0-10); Hematocrit 26.9 % (36.0-46.0); Immature Granulocytes % (Auto) 1 % (0-0); Immature Granulocytes Auto 0.06 Thou/mm3 (0.00-0.00); Lymphocytes # (Auto) 1.9 Thou/mm3 (1.0-4.8); Lymphocytes % (Auto) 29 % (10-50); Mean Corpuscular HGB Conc 32.7 g/dl (31.0-37.0); Mean Corpuscular Hemoglobin 29.3 pg (25.0-35.0); Mean Corpuscular Volume 90 fL (80-100); Monocytes # (Auto) 1.2 Thou/mm3 (0.0-0.8); Monocytes % (Auto) 19 % (0-12); Neutrophils # (Auto) 2.8 Thou/mm3 (1.8-7.7); Neutrophils % (Auto) 44 % (37-80); Nucleated Red Blood Cell # 0.04 Thou/mm3 (0.00-0.00); Nucleated Red Blood Cell % 1 /100 WBC (0); Platelet Count 184 Thou/mm3 (140-440); RDW Standard Deviation 61.6 fL (36.4-46.3); White Blood Count 6.5 Thou/mm3 (3.6-11.0)
[2024-05-23 06:00] LABS: Hemoglobin 8.8 g/dL (12.0-16.0)
[2024-05-23] MEDS: METOCLOPRAMIDE INJ 5 MG/ML VIAL 2 ML 10 MG IVP (06:28)
[2024-05-23] MEDS: PIPER/TAZO 3.375 GM 3.375 GM/50 ML BAG IV ×3 (06:28→22:41)
[2024-05-23 06:30] LABS: Alanine Aminotransferase 21 U/L (10-49); Albumin, Serum 2.5 gm/dL (3.5-5.0); Albumin/Globulin Ratio 1.3 (1.2-2.2); Alkaline Phosphatase 49 U/L (46-116); Anion Gap 3 (7-16); Aspartate Amino Transferase 41 U/L (0-34); BUN/Creatinine Ratio 8 Ratio (12-20); Bilirubin,Total 0.4 mg/dL (0.3-1.2); Blood Urea Nitrogen 5 mg/dL (9-23); Calcium 8.1 mg/dL (8.3-10.6); Calcium (Corrected) 9.3 mg/dL (8.5-10.1); Carbon Dioxide 21.1 mMol/L (20.0-31.0); Chloride 115 mMol/L (98-107); Creatinine (Component) 0.6 mg/dL (0.6-1.3); Estimated Creatinine Clearance 113.9 mL/min (>60); Glucose 140 mg/dL (74-106); Magnesium 1.8 mg/dL (1.6-2.6); Osmolality,Calculated 276 (275-295); Phosphorous 2.4 mg/dL (2.4-5.1); Potassium 3.4 mMol/L (3.4-5.1); Sodium 139 mMol/L (136-145); Total Protein 4.5 gm/dL (5.7-8.2); eGFR > 60 See Note
[2024-05-23] MEDS: HEPARIN SOD INJ 5000 UNIT/ML VIAL SC (08:51)
[2024-05-23] MEDS: LEVOTHYROXINE INJ 100 mCg VIAL 50 MCG IV (08:51)
[2024-05-23] MEDS: PANTOPRAZOLE INJ 40 MG VIAL IVP (08:51)
--- NOTE | 2024-05-23 08:55 | PC.CM ---
Addendum entered by Blanquita Meza RN 05/23/24 15:42: 1400 Dr. Denis asked they I continue to try and transfer patient. I let him know I will send to a tertiary center. I contacted [facility]. Original Note: I reviewed Maged's notes from yesterday and I see patient was declined by [facility] and [facility]. Both placed had neurosurgery review patient's information and they both stated patient does not need to be transfer for higher level care. I spoke to Dr Davis and I let him know patient had been declined. He states we could probably manage patient here, but he states he will speak to his team and get back to me. I will wait to here back from the doctors.
[2024-05-23] MEDS: THIAMINE INJ 250 MG in SODIUM CHLORIDE 0.9% 100 ML 205 MG IV (09:16)
[2024-05-23 09:23] LABS: Immature Reticulocyte Fraction 54.2 % (3.0-15.9); Reticulocyte % (Auto) 1.9 % (0.5-1.5); Reticulocyte Absolute Auto 56.2 Biln/L (25.0-75.0); Reticulocyte Hgb Content 33.5 pg (28.0-35.0)
[2024-05-23 09:46] LABS: Iron 35 mcg/dL (50-170); Percent Iron Saturation 23 % (20-55); Total Iron Binding Capacity 148 mcg/dL (250-425); Unsaturated Iron Binding 113 (225-295)
[2024-05-23] MEDS: VANCOMYCIN/NS 1 GM IVPB 200 ML IV ×2 (09:57→23:14)
[2024-05-23] MEDS: INSULIN HUM REGULAR 1 UNIT/0.01 ML (PER UNIT) SC ×3 (11:40→21:00)
--- NOTE | 2024-05-23 13:04 | XR_ITS ---
Examination: Bilateral hips, AP pelvis, 5 views Technique: AP, lateral views both hips, AP pelvis, 5 views Exam date and time: May 23, 2024 1307 hours INDICATIONS: Right hip pain today. FINDINGS: Moderate osteopenia Mild bilateral hip osteoarthritis No right or left hip fracture or dislocation No avascular necrosis Bones of the pelvis intact IMPRESSION: Mild bilateral hip osteoarthritis
--- NOTE | 2024-05-23 13:39 | ESDS_ITS ---
Documented by User: Franco Borja MD 05/23/24 18:42 Addendum Discharge Addendum Date of report being addended: 05/23/24 Narrative: Patient was seen today at the bedside. States no vomiting for 3 days and able to tolerate some of her meals. Prefers if webring smaller meals as states being hungry and with apettite orders placed. States some weakness of the RLE unable to lift it. States some vaginal bleed overnight. ID was consulted and agrees to continue efforts to transfer, will continue to treat w vancomycin and zosyn. Discussed with maren whom rejected the case. At this time still pursuing transfer to tertiary center. #Epidural abscess with neurological deficits #Osteomyelitis discitis #Intractable nausea and vomiting with severe dehydration #? Pseudotumor cerebri #Anion gap metabolic acidosis #Starvation ketosis #Horizontal nystagmus, bilateral #Blurry vision #Electrolyte abnormalities #Hypokalemia secondary to #GI losses #Diarrhea #History of dermoid cyst #History of diabetes #History of hypothyroidism #Vaginal bleed Case discussed with my senior Dr. Davis and my attending Dr. Adeel Borja MD PGY-1 Documented by User: Bhavani Davis MD 05/23/24 21:11 Addendum Discharge Addendum Narrative: Patient was seen today at the bedside. States no vomiting for 3 days and able to tolerate some of her meals. Prefers if webring smaller meals as states being hungry and with apettite orders placed. States some weakness of the RLE unable to lift it. States some vaginal bleed overnight. ID was consulted and agrees to continue efforts to transfer, will continue to treat w vancomycin and zosyn. Discussed with maren whom rejected the case. At this time still pursuing transfer to tertiary center. #Epidural abscess with neurological deficits #Osteomyelitis discitis #Intractable nausea and vomiting with severe dehydration #? Pseudotumor cerebri #Anion gap metabolic acidosis #Starvation ketosis #Horizontal nystagmus, bilateral #Blurry vision #Electrolyte abnormalities #Hypokalemia secondary to #GI losses #Diarrhea #History of dermoid cyst #History of diabetes #History of hypothyroidism #Vaginal bleed Case discussed with my senior Dr. Davis and my attending Dr. Adeel Borja MD PGY-1 Senior resident attestation: The patient came in with chief complaint of unrelenting nausea and vomiting after eating meals. Noted severe hypokalemia and metabolic acidosis, possible RTA type I, associated with neurological symptoms including horizontal nystagmus and binocular diplopia, weight loss, also complaining of back pain for the past few months. #Discitis?lumbar vertebra #Spinal epidural abscess: During the clinical course and evaluation MRI lumbar spine showed concern for early spinal epidural abscess, and discitis of lumbar vertebra. Associated with neurological deficits including paresthesias bilateral lower extremities and right sided limb weakness, neurological exam shows objective weakness of the right lower extremity, also complaining of pain on right lower extremity movement in the hip joint. No bowel or bladder incontinence or saddle anesthesia. Currently patient ambulates with a walker. Transfer was attempted, but patient was denied transfer for neurosurgical intervention at [facility] and [facility]. Spoke to radiologist, who reiterated increased T2 enhancement of vertebral bodies as well as epidural layer around the lumbar vertebra. No definite abscess noted, no cord compression at this moment, if patient does not get transfer and neurosurgical intervention is not available, we will continue with conservative management including IV antibiotics vancomycin and Zosyn. ID was consulted who recommended switching to ceftriaxone and doxycycline. Literature review shows spinal epidural abscess, common pathogen Staph aureus and two thirds of the cases and 20 to 50% of the cases can be MRSA. We will continue with vancomycin and Zosyn for now, appreciate ID Recs. #Intractable nausea vomiting #Possible pseudotumor cerebri: Multiple antiemetics were tried for symptomatic relief, of no clear benefit. Erythromycin was discontinued after patient had severe diarrhea. Continued on Reglan and Phenergan, also received 1 dose of dexamethasone, also added Ativan once nightly. Acetazolamide was added due to concern for pseudotumor cerebri given nonfocal neurological symptoms of diplopia and horizontal nystagmus. Currently patient is able to eat most of her meals, and has not had any vomiting for the past 3 days. IV medications switched to p.o., small frequent meals added. Patient continues to stay on TPN, will reevaluate tomorrow and wean off of TPN, if patient will reevaluate if patient stays. Susan PGY2 Documented by User: Oumou Denis MD 05/24/24 12:07 Addendum Discharge Addendum Narrative: Patient was seen today at the bedside. States no vomiting for 3 days and able to tolerate some of her meals. Prefers if webring smaller meals as states being hungry and with apettite orders placed. States some weakness of the RLE unable to lift it. States some vaginal bleed overnight. ID was consulted and agrees to continue efforts to transfer, will continue to treat w vancomycin and zosyn. Discussed with catia and naif whom rejected the case. At this time still pursuing transfer to tertiary center. #Epidural abscess with neurological deficits #Osteomyelitis discitis #Intractable nausea and vomiting with severe dehydration #? Pseudotumor cerebri #Anion gap metabolic acidosis #Starvation ketosis #Horizontal nystagmus, bilateral #Blurry vision #Electrolyte abnormalities #Hypokalemia secondary to #GI losses #Diarrhea #History of dermoid cyst #History of diabetes #History of hypothyroidism #Vaginal bleed Case discussed with my senior Dr. Davis and my attending Dr. Adeel Borja MD PGY-1 Senior resident attestation: The patient came in with chief complaint of unrelenting nausea and vomiting after eating meals. Noted severe hypokalemia and metabolic acidosis, possible RTA type I, associated with neurological symptoms including horizontal nystagmus and binocular diplopia, weight loss, also complaining of back pain for the past few months. #Discitis?lumbar vertebra #Spinal epidural abscess: During the clinical course and evaluation MRI lumbar spine showed concern for early spinal epidural abscess, and discitis of lumbar vertebra. Associated with neurological deficits including paresthesias bilateral lower extremities and right sided limb weakness, neurological exam shows objective weakness of the right lower extremity, also complaining of pain on right lower extremity movement in the hip joint. No bowel or bladder incontinence or saddle anesthesia. Currently patient ambulates with a walker. Transfer was attempted, but patient was denied transfer for neurosurgical intervention at [facility] and [facility]. Spoke to radiologist, who reiterated increased T2 enhancement of vertebral bodies as well as epidural layer around the lumbar vertebra. No definite abscess noted, no cord compression at this moment, if patient does not get transfer and neurosurgical intervention is not available, we will continue with conservative management including IV antibiotics vancomycin and Zosyn. ID was consulted who recommended switching to ceftriaxone and doxycycline. Literature review shows spinal epidural abscess, common pathogen Staph aureus and two thirds of the cases and 20 to 50% of the cases can be MRSA. We will continue with vancomycin and Zosyn for now, appreciate ID Recs. #Intractable nausea vomiting #Possible pseudotumor cerebri: Multiple antiemetics were tried for symptomatic relief, of no clear benefit. Erythromycin was discontinued after patient had severe diarrhea. Continued on Reglan and Phenergan, also received 1 dose of dexamethasone, also added Ativan once nightly. Acetazolamide was added due to concern for pseudotumor cerebri given nonfocal neurological symptoms of diplopia and horizontal nystagmus. Currently patient is able to eat most of her meals, and has not had any vomiting for the past 3 days. IV medications switched to p.o., small frequent meals added. Patient continues to stay on TPN, will reevaluate tomorrow and wean off of TPN, if patient will reevaluate if patient stays. Quresh PGY2 Attending Attestation: 59-year-old female with multiple comorbidities including hypertension, hyperlipidemia, type 2 diabetes mellitus who presented to the ER or 05/14/2024 for intractable nausea and vomiting requiring prolonged hospitalization as patient failed multiple antiemetic therapies and workup including EGD all of which have been inconclusive. Of note, patient underwent lumbar MRI with findings of possible epidural abscesses and discussed with [facility] and [facility] neurosurgeon however did not recommend transfer recommended conservative management. Patient with diplopia/blurry vision and headache raising suspicion for pseudotumor cerebri subsequently started on acetazolamide with improvement I reviewed above note and agree with findings and plans. I have also personally examined the patient with medicine team and went over assessment and plan with medical team including grad intern and resident physician.
[2024-05-23] MEDS: CELECOXIB 100 MG CAPSULE PO ×2 (14:03→20:56)
[2024-05-23] MEDS: FAT EMUL/OLIVE/SOY/PHOS 20% IV 500 ML 32 ML IV (17:25)
[2024-05-23] MEDS: POTASSIUM PHOS IV (17:25)
[2024-05-23] MEDS: MAGNESIUM SULF IV (17:25)
[2024-05-23] MEDS: [UNRECOGNIZED DRUG - OTHER] IV (17:25)
[2024-05-23] MEDS: POTASSIUM ACET IV (17:25)
--- NOTE | 2024-05-23 19:06 | ESPR_ITS ---
Documentation for date of: 05/23/24 Subjective Subjective Interval history: Improved nausea vomiting on promethazine which we will continue upon discharge Exam Vital Signs Temp Pulse Resp BP Pulse Ox O2 Del Method 97.2 F 90 18 108/62 98 Room Air 05/23/24 16:00 05/23/24 16:00 05/23/24 16:00 05/23/24 16:00 05/23/24 16:00 05/23/24 16:00 Objective Labs 05/23/24 04:55 05/23/24 04:55 Labs: Laboratory Results - last 24 hr 05/23/24 04:55 WBC 6.5 RBC 3.00 L Hgb 8.8 L D Hct 26.9 L MCV 90 MCH 29.3 MCHC 32.7 RDW Std Deviation 61.6 H Plt Count 184 D Neut % (Auto) 44 Lymph % (Auto) 29 [place] % (Auto) 19 H Eos % (Auto) 6 Baso % (Auto) 1 Neut # (Auto) 2.8 Lymph # (Auto) 1.9 [place] # (Auto) 1.2 H Eos # (Auto) 0.4 Baso # (Auto) 0.1 Immature Gran # (Auto) 0.06 H Absolute Nucleated RBC 0.04 H Immature Gran % 1 H Nucleated RBC % 1 H Retic Count (auto) 1.9 H Absolute Retic 56.2 Immature Retic Fraction 54.2 H Retic Hgb Content CHr 33.5 Sodium 139 Potassium 3.4 Chloride 115 H Carbon Dioxide 21.1 Anion Gap 3 L BUN 5 L Creatinine 0.6 Estim Creat Clear Calc 113.9 eGFR > 60 BUN/Creatinine Ratio 8 L Glucose 140 H Calculated Osmolality 276 Calcium 8.1 L Corrected Calcium 9.3 Phosphorus 2.4 Magnesium 1.8 Iron 35 L TIBC 148 L Iron Saturation 23 Unsat Iron Binding 113 L Total Bilirubin 0.4 AST 41 H ALT 21 Alkaline Phosphatase 49 D Total Protein 4.5 L Albumin 2.5 L D Globulin 2.0 L Albumin/Globulin Ratio 1.3 Impressions Impression: # Gastric motility disorder # Cystic duct obstruction Continue current management with promethazine ABG Interpretation ABG results: 05/14/24 05/15/24 17:25 16:48 VBG pH 7.49 7.39 VBG pCO2 21 L 28 L VBG pO2 35 43 VBG Base Excess -5 L -7 L Assessment & Plan A&P Narrative mild anemia presumptive gastroparesis dermoid tumor hypothyroid htn hld possible epidural abscess with neg cx on empiric vanco/zosyn ideally, this is drained or pt is referred for such so that if the referral is denied, one can know why that is the case ok to change zosyn to rocephin and vanco to po doxy and see if other meds can be changed to po too. if empiric rx is to be the goal, then use agents that are supported by micro or are easy to use. she likely needs dermoid addressed at some point as well. Time Spent With Patient Time: Total time spent is greater than 50% in coordination of care (as documented) at patient's floor/unit and/or counseling patient:
[2024-05-23] MEDS: ACETAzolaMIDE 250 MG TABLET PO (20:47)
[2024-05-23] MEDS: ACETAMINOPHEN 325 MG TABLET 650 MG PO (20:56)
[2024-05-23] MEDS: LORazepam 0.5 MG TABLET 1 MG PO (20:56)
[2024-05-23 23:04] LABS: Vancomycin,Trough 14.5 mcg/mL (5.0-10.0)
--- NOTE | 2024-05-23 23:21 | PD.NEUROPROG ---
Documentation for date of: 05/23/24 Subjective Subjective Interval history: Ms. Palumbo was seen in [facility] today, doing little better as the nausea and vomiting are controlled with Phenergan, she is now eating. c/o pain in the lower back and right LE and very weak. Intermittent paresthesias in the extremities in different areas in patch distribution. Exam - Neurology Vital Signs Temp Pulse Resp BP Pulse Ox O2 Del Method 97 F 92 18 116/65 97 Room Air 05/23/24 20:00 05/23/24 20:00 05/23/24 20:00 05/23/24 20:00 05/23/24 20:00 05/23/24 20:00 Narrative Exam GENERAL APPEARANCE: Well hydrated, well-nourished in no acute distress. HEENT: Normocephalic, atraumatic, extraocular movements intact. Pupils: Equal reacting to light and accommodation, horizontal nystagmus noted NECK: Supple, no JVD or bruits. CARDIOVASULAR: Heart: S1, S2 heard, regular without S3-S4 or murmur no rubs or gallops. LUNGS/CHEST: Clear to auscultation bilaterally. No rails, rhonchi, or wheezing. Normal inspection. ABDOMEN: Soft, nontender, with normal bowel sounds. No pulsatile masses. No rebound, rigidity, or guarding. Normal inspection and palpation. EXTREMITIES: Normal inspection and palpation. No edema, clubbing or cyanosis. SKIN: Warm and dry without rashes. Normal inspection. MUSCULOSKELETAL: No cervical, thoracic, lumbar or midline bony tenderness. Normal inspection. NEURO: Alert, awake and oriented x3. Cranial nerves: II through XII grossly intact. Speech and language: Normal with no dysarthria or dysphasia. Motor system: Tone and bulk: Normal: Strength: significant weakness in the right LE with SLR positive; No pronator drift noted. Deep tendon reflexes: 2+ bilaterally symmetrical. Plantar reflex: Downgoing bilaterally. Sensory system: subjective paresthesias in the right LE noted. Coordination: Intact to cegrov-fxtj-ffduvs test bilaterally. No ataxia, no dysmetria, or dysdiadochokinesia noted. No intention tremors noted. Gait: Not tested. No signs of meningeal irritation noted. PSYCHIATRIC: Normal mood and affect. Objective Labs 05/23/24 04:55 05/23/24 04:55 Labs: Laboratory Results - last 24 hr 05/23/24 05/23/24 04:55 21:10 WBC 6.5 RBC 3.00 L Hgb 8.8 L D Hct 26.9 L MCV 90 MCH 29.3 MCHC 32.7 RDW Std Deviation 61.6 H Plt Count 184 D Neut % (Auto) 44 Lymph % (Auto) 29 [place] % (Auto) 19 H Eos % (Auto) 6 Baso % (Auto) 1 Neut # (Auto) 2.8 Lymph # (Auto) 1.9 [place] # (Auto) 1.2 H Eos # (Auto) 0.4 Baso # (Auto) 0.1 Immature Gran # (Auto) 0.06 H Absolute Nucleated RBC 0.04 H Immature Gran % 1 H Nucleated RBC % 1 H Retic Count (auto) 1.9 H Absolute Retic 56.2 Immature Retic Fraction 54.2 H Retic Hgb Content CHr 33.5 Sodium 139 Potassium 3.4 Chloride 115 H Carbon Dioxide 21.1 Anion Gap 3 L BUN 5 L Creatinine 0.6 Estim Creat Clear Calc 113.9 eGFR > 60 BUN/Creatinine Ratio 8 L Glucose 140 H Calculated Osmolality 276 Calcium 8.1 L Corrected Calcium 9.3 Phosphorus 2.4 Magnesium 1.8 Iron 35 L TIBC 148 L Iron Saturation 23 Unsat Iron Binding 113 L Total Bilirubin 0.4 AST 41 H ALT 21 Alkaline Phosphatase 49 D Total Protein 4.5 L Albumin 2.5 L D Globulin 2.0 L Albumin/Globulin Ratio 1.3 Vancomycin Trough 14.5 H ABG Interpretation ABG results: 05/14/24 05/15/24 17:25 16:48 VBG pH 7.49 7.39 VBG pCO2 21 L 28 L VBG pO2 35 43 VBG Base Excess -5 L -7 L Assessment & Plan Assessment and plan (1) Intractable nausea and vomiting: Status: Resolved (2) Teratoma of ovary: Status: Acute Assessment and plan: MRI abdomen and pevis showed Dermoid -cyst (3) Diabetes mellitus type 2, insulin dependent: Status: Acute Assessment and plan: Continue to check fingerstick glucose and follow sliding scale insulin per protocol (4) Hypokalemia: Status: Acute Assessment and plan: Being monitored closely and getting replaced (5) Lumbar disc disease: Status: Acute Assessment and plan: with discitis. Continue with IV antibiotics transfer attempted but not successful.
[2024-05-24] VITALS (11 sets, daily range): BP systolic 106–123; BP diastolic 50–78; PULSE 89–101; RESP 18–20; TEMP 36.2–36.4; O2SAT 96–98; BMI 39.4; BMI 38.9
[2024-05-24] MEDS: PROMETHAZINE INJ 6.25 MG in SODIUM CHLORIDE 0.9% 50 ML 2.5 MG IV ×4 (00:53→17:46)
[2024-05-24] MEDS: ACETAMINOPHEN 325 MG TABLET 650 MG PO (04:08)
[2024-05-24] MEDS: LEVOTHYROXINE SODIUM 125 MCG, LEVOTHYROXINE SODIUM 50 MCG 175 MCG PO (05:11)
[2024-05-24] MEDS: PIPER/TAZO 3.375 GM 3.375 GM/50 ML BAG IV ×3 (06:20→21:28)
--- NOTE | 2024-05-24 07:45 | PC.CM ---
Spoke to [facility] to f/u on transfer request for neurosurgery, [facility] had declined due to capacity previously, she will review and speak with her dye house helper if they have capacity and are willing to accept. Clinicals sent via [facility] fax.
[2024-05-24 08:19] LABS: Basophils % (Auto) 1 % (0-2.5); Eosinophils # (Auto) 0.5 Thou/mm3 (0.0-0.5); Eosinophils % (Auto) 9 % (0-10); Hematocrit 25.6 % (36.0-46.0); Hemoglobin 9.3 g/dL (12.0-16.0); Immature Granulocytes % (Auto) 1 % (0-0); Immature Granulocytes Auto 0.05 Thou/mm3 (0.00-0.00); Lymphocytes # (Auto) 1.7 Thou/mm3 (1.0-4.8); Lymphocytes % (Auto) 30 % (10-50); Mean Corpuscular HGB Conc 36.3 g/dl (31.0-37.0); Mean Corpuscular Hemoglobin 33.5 pg (25.0-35.0); Mean Corpuscular Volume 92 fL (80-100); Monocytes % (Auto) 17 % (0-12); Neutrophils # (Auto) 2.5 Thou/mm3 (1.8-7.7); Neutrophils % (Auto) 43 % (37-80); Nucleated Red Blood Cell # 0.02 Thou/mm3 (0.00-0.00); Nucleated Red Blood Cell % 0 /100 WBC (0); Platelet Count 159 Thou/mm3 (140-440); RDW Standard Deviation 63.9 fL (36.4-46.3); Red Blood Count 2.78 Miln/mm3 (4.00-5.20); White Blood Count 5.9 Thou/mm3 (3.6-11.0)
[2024-05-24] MEDS: ACETAzolaMIDE 250 MG TABLET PO ×2 (09:08→20:39)
[2024-05-24] MEDS: HEPARIN SOD INJ 5000 UNIT/ML VIAL SC ×2 (09:08→20:41)
[2024-05-24] MEDS: CELECOXIB 100 MG CAPSULE PO ×2 (09:08→20:39)
[2024-05-24] MEDS: THIAMINE INJ 250 MG in SODIUM CHLORIDE 0.9% 100 ML 205 MG IV (09:09)
--- NOTE | 2024-05-24 09:24 | PD.IDPROG ---
Subjective Subjective Interval history: no change in recs. no new pos micro if no abscess drainage, then finish rx as outpt and do outpt imaging to f/u Exam Vital Signs Temp Pulse Resp BP Pulse Ox O2 Del Method 97.4 F 92 18 123/78 98 Room Air 05/24/24 07:57 05/24/24 07:57 05/24/24 07:57 05/24/24 07:57 05/24/24 07:57 05/24/24 07:57 Narrative Exam limited eval Objective - Internal Medicine Labs 05/24/24 07:51 05/23/24 04:55 Labs: Laboratory Results - last 24 hr 05/23/24 05/23/24 05/24/24 04:55 21:10 07:51 WBC 5.9 RBC 2.78 L Hgb 9.3 L Hct 25.6 L MCV 92 MCH 33.5 MCHC 36.3 RDW Std Deviation 63.9 H Plt Count 159 Neut % (Auto) 43 Lymph % (Auto) 30 [place] % (Auto) 17 H Eos % (Auto) 9 Baso % (Auto) 1 Neut # (Auto) 2.5 Lymph # (Auto) 1.7 [place] # (Auto) 1.0 H Eos # (Auto) 0.5 Baso # (Auto) 0.0 Immature Gran # (Auto) 0.05 H Absolute Nucleated RBC 0.02 H Immature Gran % 1 H Nucleated RBC % 0 Retic Count (auto) 1.9 H Absolute Retic 56.2 Immature Retic Fraction 54.2 H Retic Hgb Content CHr 33.5 Iron 35 L TIBC 148 L Iron Saturation 23 Unsat Iron Binding 113 L Vancomycin Trough 14.5 H ABG Interpretation ABG results: 05/14/24 05/15/24 17:25 16:48 VBG pH 7.49 7.39 VBG pCO2 21 L 28 L VBG pO2 35 43 VBG Base Excess -5 L -7 L Assessment & Plan A&P Narrative mild anemia presumptive gastroparesis dermoid tumor hypothyroid htn hld possible epidural abscess with neg cx on empiric vanco/zosyn ideally, this is drained or pt is referred for such so that if the referral is denied, please document any rationale for no intervention so we all can know why that is the case ok to change zosyn to rocephin and vanco to po doxy and see if other meds can be changed to po too. if empiric rx is to be the goal, then use agents that are supported by micro or are easy to use. she likely needs dermoid addressed at some point as well. will check chart again monday if she remains, but am ok if you just treat her empirically at this point in time current abx are more toxic and require more daily doses then alternative empiric rx. Time Spent With Patient Time: Total time spent is greater than 50% in coordination of care (as documented) at patient's floor/unit and/or counseling patient:
[2024-05-24 10:29] LABS: Alanine Aminotransferase 22 U/L (10-49); Albumin, Serum 2.7 gm/dL (3.5-5.0); Albumin/Globulin Ratio 1.4 (1.2-2.2); Alkaline Phosphatase 48 U/L (46-116); Anion Gap 6 (7-16); Aspartate Amino Transferase 56 U/L (0-34); BUN/Creatinine Ratio 18 Ratio (12-20); Bilirubin,Total 0.4 mg/dL (0.3-1.2); Blood Urea Nitrogen 9 mg/dL (9-23); Calcium 7.8 mg/dL (8.3-10.6); Calcium (Corrected) 8.8 mg/dL (8.5-10.1); Carbon Dioxide 19.5 mMol/L (20.0-31.0); Chloride 114 mMol/L (98-107); Creatinine (Component) 0.5 mg/dL (0.6-1.3); Glucose 156 mg/dL (74-106); Osmolality,Calculated 279 (275-295); Potassium 3.5 mMol/L (3.4-5.1); Sodium 139 mMol/L (136-145); Total Protein 4.7 gm/dL (5.7-8.2); eGFR > 60 See Note
[2024-05-24] MEDS: VANCOMYCIN/NS 1 GM IVPB 200 ML IV ×2 (11:26→21:28)
--- NOTE | 2024-05-24 12:07 | ESPR_ITS ---
Documentation for date of: 05/24/24 Subjective - Hospitalist Subjective Interval history: Denies any further episodes of N/V States that she is able to tolerate PPN Review of Systems Constitutional Comments: Abdomen: Denies diarrhea, constipation, bright red blood per rectum or melena. Neurology: Denies any changes in vision, weakness or difficulty speaking. The rest of review of system is otherwise negative except what is mentioned above Exam Vital Signs Temp Pulse Resp BP Pulse Ox O2 Del Method 97.2 F 90 18 118/50 L 96 Room Air 05/24/24 11:45 05/24/24 11:55 05/24/24 11:45 05/24/24 11:45 05/24/24 11:45 05/24/24 11:45 Narrative Physical Exam: General: Alert and oriented to name, date of and place HEENT: Normocephalic, atraumatic Cardiac: Regular rate and rhythm, no murmurs Lungs: Clear to auscultation with no wheezing or crackles Abdomen: Nondistended, nontender positive bowel sounds. No guarding or rebound tenderness. Neurology: Cranial nerves II to XII intact and patient able to move all 4 extremities. Skin: No rash or edema. Objective - Hospitalist Labs Diagram: 05/24/24 07:51 05/24/24 09:38 Labs: Laboratory Results - last 24 hr 05/23/24 05/24/24 05/24/24 21:10 07:51 09:38 WBC 5.9 RBC 2.78 L Hgb 9.3 L Hct 25.6 L MCV 92 MCH 33.5 MCHC 36.3 RDW Std Deviation 63.9 H Plt Count 159 Neut % (Auto) 43 Lymph % (Auto) 30 [place] % (Auto) 17 H Eos % (Auto) 9 Baso % (Auto) 1 Neut # (Auto) 2.5 Lymph # (Auto) 1.7 [place] # (Auto) 1.0 H Eos # (Auto) 0.5 Baso # (Auto) 0.0 Immature Gran # (Auto) 0.05 H Absolute Nucleated RBC 0.02 H Immature Gran % 1 H Nucleated RBC % 0 Sodium 139 Potassium 3.5 Chloride 114 H Carbon Dioxide 19.5 L Anion Gap 6 L BUN 9 Creatinine 0.5 L Estim Creat Clear Calc 144.0 eGFR > 60 BUN/Creatinine Ratio 18 Glucose 156 H Calculated Osmolality 279 Calcium 7.8 L Corrected Calcium 8.8 Total Bilirubin 0.4 AST 56 H ALT 22 Alkaline Phosphatase 48 Total Protein 4.7 L Albumin 2.7 L Globulin 2.0 L Albumin/Globulin Ratio 1.4 Vancomycin Trough 14.5 H ABG Interpretation ABG results: 05/14/24 05/15/24 17:25 16:48 VBG pH 7.49 7.39 VBG pCO2 21 L 28 L VBG pO2 35 43 VBG Base Excess -5 L -7 L Assessment & Plan Patient Synopsis 59-year-old female with multiple comorbidities including hypertension, hyperlipidemia, type 2 diabetes mellitus who presented to the ER or 05/14/2024 for intractable nausea and vomiting requiring prolonged hospitalization as patient failed multiple antiemetic therapies and workup including EGD all of which have been inconclusive. Of note, patient underwent lumbar MRI with findings of possible epidural abscesses and discussed with [facility] and [facility] neurosurgeon however did not recommend transfer recommended conservative management. 1. Intractable nausea and vomiting ? Patient with diplopia/blurry vision and headache raising suspicion for pseudotumor cerebri subsequently started on acetazolamide with improvement ? Unable to do lumbar puncture as patient has epidural abscess ? Continue acetazolamide and monitor closely ? Patient is currently on PPN and plan to continue clear liquid 2. Epidural abscess 3. Osteomyelitis/discitis ? On IV antibiotic therapy ? Discussed case with [facility] and [place] who rejected patient for transfer ? Will continue trying to send the patient for neurosurgical evaluation ? Currently, patient denies any lower extremity weakness, saddle anesthesia and denies any fecal or urinary incontinence ? Continue to monitor closely ?Plan to continue Vanco and Zosyn and appreciate infectious disease input 4. Electrolyte derangement 5. Hypokalemia ? Continue aggressive electrolyte replacement 6. Dermatoid cyst ? Will be consulted and recommended outpatient workup ? Continue to monitor 7. Type 2 diabetes mellitus ? Hemoglobin A1c 6.8 ? Continue insulin sliding scale 8. Hypothyroidism ? Patient noted to have TSH of 75 however T4 at 0.76 ? Continue Synthroid 50 mcg daily Healthcare Maintenance: DVT prophylaxis: Heparin 5000 units GI prophylaxis: Protonix 40 mg daily Diet: Clear liquid diet with TPN Lines: PIV CODE STATUS: Full code Reason for hospitalization: Epidural abscess pending transfer on IV antibiotic therapy, intractable nausea and vomiting on PPN Time Spent with Patient Time: Total time spent is greater than 50% in coordination of care (as documented) at patient's floor/unit and/or counseling patient: Time with patient: Greater than 35 minutes Reason for Continued Stay Reason for continued stay: IV antibiotics, vomiting: IV antiemetics and nausea: IV antiemetics Quality Measures Quality Measures VTE prophylaxis (Heparin )
[2024-05-24] MEDS: INSULIN HUM REGULAR 1 UNIT/0.01 ML (PER UNIT) SC (17:30)
[2024-05-24] MEDS: [UNRECOGNIZED DRUG - OTHER] IV (17:46)
[2024-05-24] MEDS: POTASSIUM PHOS IV (17:46)
[2024-05-24] MEDS: POTASSIUM ACET IV (17:46)
[2024-05-24] MEDS: MAGNESIUM SULF IV (17:46)
--- NOTE | 2024-05-24 20:34 | PD.IMPROG ---
Documentation for date of: 05/24/24 Subjective Subjective Interval history: Nausea vomiting improved Patient has epidural abscess and try to get transferred to a tertiary center for further management by neurosurgery On IV antibiotics On TPN and clear liquid diet Exam Vital Signs Temp Pulse Resp BP Pulse Ox O2 Del Method 97.1 F 92 20 114/62 98 Room Air 05/24/24 20:00 05/24/24 20:00 05/24/24 20:00 05/24/24 20:00 05/24/24 20:00 05/24/24 20:00 Objective Labs 05/24/24 07:51 05/24/24 09:38 Labs: Laboratory Results - last 24 hr 05/23/24 05/24/24 05/24/24 21:10 07:51 09:38 WBC 5.9 RBC 2.78 L Hgb 9.3 L Hct 25.6 L MCV 92 MCH 33.5 MCHC 36.3 RDW Std Deviation 63.9 H Plt Count 159 Neut % (Auto) 43 Lymph % (Auto) 30 [place] % (Auto) 17 H Eos % (Auto) 9 Baso % (Auto) 1 Neut # (Auto) 2.5 Lymph # (Auto) 1.7 [place] # (Auto) 1.0 H Eos # (Auto) 0.5 Baso # (Auto) 0.0 Immature Gran # (Auto) 0.05 H Absolute Nucleated RBC 0.02 H Immature Gran % 1 H Nucleated RBC % 0 Sodium 139 Potassium 3.5 Chloride 114 H Carbon Dioxide 19.5 L Anion Gap 6 L BUN 9 Creatinine 0.5 L Estim Creat Clear Calc 144.0 eGFR > 60 BUN/Creatinine Ratio 18 Glucose 156 H Calculated Osmolality 279 Calcium 7.8 L Corrected Calcium 8.8 Total Bilirubin 0.4 AST 56 H ALT 22 Alkaline Phosphatase 48 Total Protein 4.7 L Albumin 2.7 L Globulin 2.0 L Albumin/Globulin Ratio 1.4 Vancomycin Trough 14.5 H Impressions Impression: # Intractable nausea vomiting improving # Epidural abscess Continue current management ABG Interpretation ABG results: 05/14/24 05/15/24 17:25 16:48 VBG pH 7.49 7.39 VBG pCO2 21 L 28 L VBG pO2 35 43 VBG Base Excess -5 L -7 L Assessment & Plan A&P Narrative mild anemia presumptive gastroparesis dermoid tumor hypothyroid htn hld possible epidural abscess with neg cx on empiric vanco/zosyn ideally, this is drained or pt is referred for such so that if the referral is denied, please document any rationale for no intervention so we all can know why that is the case ok to change zosyn to rocephin and vanco to po doxy and see if other meds can be changed to po too. if empiric rx is to be the goal, then use agents that are supported by micro or are easy to use. she likely needs dermoid addressed at some point as well. will check chart again monday if she remains, but am ok if you just treat her empirically at this point in time current abx are more toxic and require more daily doses then alternative empiric rx. Time Spent With Patient Time: Total time spent is greater than 50% in coordination of care (as documented) at patient's floor/unit and/or counseling patient:
[2024-05-24] MEDS: LORazepam 0.5 MG TABLET 1 MG PO (20:39)
--- NOTE | 2024-05-24 23:34 | PD.NEUROPROG ---
Documentation for date of: 05/24/24 Subjective Subjective Interval history: Ms. Palumbo was seen in [facility] today, doing little better, she is tolerating oral diet well, able to walk with a walker. Exam - Neurology Vital Signs Temp Pulse Resp BP Pulse Ox O2 Del Method 97.1 F 92 20 114/62 98 Room Air 05/24/24 20:00 05/24/24 20:00 05/24/24 20:00 05/24/24 20:00 05/24/24 20:00 05/24/24 20:00 Narrative Exam GENERAL APPEARANCE: Well hydrated, well-nourished in no acute distress. HEENT: Normocephalic, atraumatic, extraocular movements intact. Pupils: Equal reacting to light CARDIOVASULAR: Heart: S1, S2 heard, regular without S3-S4 or murmur no rubs or gallops. LUNGS/CHEST: Clear to auscultation bilaterally. No rails, rhonchi, or wheezing. Normal inspection. ABDOMEN: Soft, nontender, with normal bowel sounds. No pulsatile masses. No rebound, rigidity, or guarding. Normal inspection and palpation. EXTREMITIES: Normal inspection and palpation. No edema, clubbing or cyanosis. SKIN: Warm and dry without rashes. Normal inspection. MUSCULOSKELETAL: No cervical, thoracic, lumbar or midline bony tenderness. Normal inspection. NEURO: Alert, awake and oriented x3. Cranial nerves: II through XII grossly intact. Speech and language: Normal with no dysarthria or dysphasia. Motor system: Tone and bulk: Normal: Strength: moves all extremities, No pronator drift noted. Deep tendon reflexes: 2+ bilaterally symmetrical. Plantar reflex: Downgoing bilaterally. Sensory system: subjective paresthesias in the right LE noted. Coordination: Intact to [id number] test bilaterally. No ataxia, no dysmetria, or dysdiadochokinesia noted. No intention tremors noted. Gait: walks with a walker; No signs of meningeal irritation noted. PSYCHIATRIC: Normal mood and affect. Objective Labs 05/24/24 07:51 05/24/24 09:38 Labs: Laboratory Results - last 24 hr 05/24/24 05/24/24 07:51 09:38 WBC 5.9 RBC 2.78 L Hgb 9.3 L Hct 25.6 L MCV 92 MCH 33.5 MCHC 36.3 RDW Std Deviation 63.9 H Plt Count 159 Neut % (Auto) 43 Lymph % (Auto) 30 [place] % (Auto) 17 H Eos % (Auto) 9 Baso % (Auto) 1 Neut # (Auto) 2.5 Lymph # (Auto) 1.7 [place] # (Auto) 1.0 H Eos # (Auto) 0.5 Baso # (Auto) 0.0 Immature Gran # (Auto) 0.05 H Absolute Nucleated RBC 0.02 H Immature Gran % 1 H Nucleated RBC % 0 Sodium 139 Potassium 3.5 Chloride 114 H Carbon Dioxide 19.5 L Anion Gap 6 L BUN 9 Creatinine 0.5 L Estim Creat Clear Calc 144.0 eGFR > 60 BUN/Creatinine Ratio 18 Glucose 156 H Calculated Osmolality 279 Calcium 7.8 L Corrected Calcium 8.8 Total Bilirubin 0.4 AST 56 H ALT 22 Alkaline Phosphatase 48 Total Protein 4.7 L Albumin 2.7 L Globulin 2.0 L Albumin/Globulin Ratio 1.4 ABG Interpretation ABG results: 05/14/24 05/15/24 17:25 16:48 VBG pH 7.49 7.39 VBG pCO2 21 L 28 L VBG pO2 35 43 VBG Base Excess -5 L -7 L Assessment & Plan Assessment and plan (1) Intractable nausea and vomiting: Status: Resolved (2) Diabetes mellitus type 2, insulin dependent: Status: Acute Assessment and plan: Continue to check fingerstick glucose and follow sliding scale insulin per protocol (3) Lumbar disc disease: Status: Acute Assessment and plan: with discitis. Continue with IV antibiotics improving. if persistent, will do EMG AND NCS of both LE as an outpatient.
[2024-05-25] VITALS: BP 131/83; PULSE 96; RESP 20; TEMP 36.5; O2SAT 99
[2024-05-25] MEDS: PROMETHAZINE INJ 6.25 MG in SODIUM CHLORIDE 0.9% 50 ML 2.5 MG IV ×5 (00:22→23:20)
[2024-05-25] MEDS: ONDANSETRON INJ 2 MG/ML INJ 2 ML 4 MG IV ×2 (01:39→20:49)
[2024-05-25 04:00] VITALS: BP 133/86; PULSE 102; RESP 20; TEMP 36.1; O2SAT 99
[2024-05-25] MEDS: PIPER/TAZO 3.375 GM 3.375 GM/50 ML BAG IV ×3 (06:05→22:42)
[2024-05-25 06:18] LABS: Basophils % (Auto) 1 % (0-2.5); Eosinophils # (Auto) 0.7 Thou/mm3 (0.0-0.5); Eosinophils % (Auto) 10 % (0-10); Hematocrit 24.2 % (36.0-46.0); Hemoglobin 7.8 g/dL (12.0-16.0); Immature Granulocytes % (Auto) 1 % (0-0); Immature Granulocytes Auto 0.07 Thou/mm3 (0.00-0.00); Lymphocytes # (Auto) 1.5 Thou/mm3 (1.0-4.8); Lymphocytes % (Auto) 21 % (10-50); Mean Corpuscular HGB Conc 32.2 g/dl (31.0-37.0); Mean Corpuscular Hemoglobin 29.7 pg (25.0-35.0); Mean Corpuscular Volume 92 fL (80-100); Monocytes # (Auto) 1.5 Thou/mm3 (0.0-0.8); Monocytes % (Auto) 22 % (0-12); Neutrophils # (Auto) 3.1 Thou/mm3 (1.8-7.7); Neutrophils % (Auto) 46 % (37-80); Nucleated Red Blood Cell % 0 /100 WBC (0); Platelet Count 171 Thou/mm3 (140-440); RDW Standard Deviation 64.7 fL (36.4-46.3); Red Blood Count 2.63 Miln/mm3 (4.00-5.20); White Blood Count 6.8 Thou/mm3 (3.6-11.0)
[2024-05-25 06:49] LABS: Alanine Aminotransferase 28 U/L (10-49); Albumin, Serum 2.6 gm/dL (3.5-5.0); Albumin/Globulin Ratio 1.4 (1.2-2.2); Alkaline Phosphatase 52 U/L (46-116); Anion Gap 6 (7-16); Aspartate Amino Transferase 64 U/L (0-34); BUN/Creatinine Ratio 16 Ratio (12-20); Bilirubin,Total 0.4 mg/dL (0.3-1.2); Blood Urea Nitrogen 8 mg/dL (9-23); Calcium 7.9 mg/dL (8.3-10.6); Carbon Dioxide 18.5 mMol/L (20.0-31.0); Chloride 117 mMol/L (98-107); Creatinine (Component) 0.5 mg/dL (0.6-1.3); Globulin 1.9 gm/dL (2.3-3.5); Glucose 152 mg/dL (74-106); Osmolality,Calculated 282 (275-295); Potassium 3.8 mMol/L (3.4-5.1); Sodium 141 mMol/L (136-145); Total Protein 4.5 gm/dL (5.7-8.2); eGFR > 60 See Note
[2024-05-25 08:00] VITALS: BP 107/78; PULSE 94; RESP 18; TEMP 36.2; O2SAT 99
[2024-05-25] MEDS: INSULIN HUM REGULAR 1 UNIT/0.01 ML (PER UNIT) SC ×4 (09:11→20:50)
[2024-05-25] MEDS: HEPARIN SOD INJ 5000 UNIT/ML VIAL SC ×2 (09:12→20:50)
[2024-05-25] MEDS: THIAMINE INJ 250 MG in SODIUM CHLORIDE 0.9% 100 ML 205 MG IV (09:13)
[2024-05-25 09:47] LABS: Vancomycin,Trough 15.8 mcg/mL (5.0-10.0)
[2024-05-25 10:00] LABS: Magnesium 2.3 mg/dL (1.6-2.6)
--- NOTE | 2024-05-25 10:28 | PC.CM ---
Addendum entered by Laney Griffith RN 05/25/24 15:05: [address] Denis to cancel the transfer request. Addendum entered by Laney Griffith RN 05/25/24 11:12: 11:12 received call from [facility], spoke to Teresa. She stated the transfer is declined due to capacity. Addendum entered by Laney Griffith RN 05/25/24 10:52: 1053 clinicals sent to [facility] and [facility]. Addendum entered by Laney Griffith RN 05/25/24 10:52: 1043 Called [facility], spoke to Brain and initiated the transfer request. Addendum entered by Laney Griffith RN 05/25/24 10:38: 1035 called [facility], spoke to Sarika and initiated the transfer request. Original Note: [address] Davis and confirmed pt still needs to be transferred for epidural abscess posterior to L1-L5 needs neuro-surgical services. Dr. Davis is aware that [facility] and [facility] declined due to no surgical intervention needed for the pt. Dr. Davis stated to try tertiary level hospitals.
[2024-05-25] MEDS: VANCOMYCIN/NS 1 GM IVPB 200 ML IV ×2 (11:28→21:02)
[2024-05-25 12:00] VITALS: BP 125/74; PULSE 90; RESP 17; TEMP 36.3; O2SAT 99
--- NOTE | 2024-05-25 13:44 | ESPR_ITS ---
<Statement entered by Oumou Denis MD - 06/11/24 09:26> I reviewed above note and agree with findings and plans. I have also personally examined the patient with medicine team and went over assessment and plan with medical team including analytics intern and resident physician. Documentation for date of: 05/25/24 Subjective Subjective Interval history: Patient seen today at the bedside fine awake, alert, oriented x 3. No overnight events reported. States some nausea and right sided abdominal pain. Vital signs stable at this time. Labs significant for downtrending bicarb likely in the setting of acetazolamide and downtrending hemoglobin from 9.3-10.8. Spoke to Dr Hernandez neurology states very unlikely to be pseudotumor cerebri and states that this likely gastroparesis and recommended to hold acetazolamide at this time. In regards to spinal epidural abscess transfer request sent to multiple institutions all of which rejected the case, we will continue with conservative management at this time. Exam Vital Signs Temp Pulse Resp BP Pulse Ox O2 Del Method 97.3 F 90 17 125/74 99 Room Air 05/25/24 12:00 05/25/24 12:00 05/25/24 12:00 05/25/24 12:00 05/25/24 12:00 05/25/24 12:00 Narrative Exam Physical Exam GENERAL: NAD, NC/AT, responsive/cooperative. A&Ox3 HEENT: Moist mucosa. Eyes open, symmetrical, & clear CARDIO: No chest pain on palpation. Heart RRR, no obvious murmurs PULM: No noted coughing/dyspnea. Lungs CTA B/L, no R/W/R GI: Abdomen soft, nondistended, no pain on palpation. BSx4 URO/DATA COMMUNICATIONS ANALYST:: No further abnormalities noted. SKIN/MSK/EXT: No wounds/rashes/edema/amputations, no pain on palpation. Pedal pulses present B/L NEURO: AAOx3, able to move all 4 extremities Objective Labs 05/25/24 05:48 05/25/24 05:48 Labs: Laboratory Results - last 24 hr 05/25/24 05/25/24 05:48 08:35 WBC 6.8 RBC 2.63 L Hgb 7.8 L Hct 24.2 L MCV 92 MCH 29.7 MCHC 32.2 RDW Std Deviation 64.7 H Plt Count 171 Neut % (Auto) 46 Lymph % (Auto) 21 [place] % (Auto) 22 H Eos % (Auto) 10 Baso % (Auto) 1 Neut # (Auto) 3.1 Lymph # (Auto) 1.5 [place] # (Auto) 1.5 H Eos # (Auto) 0.7 H Baso # (Auto) 0.0 Immature Gran # (Auto) 0.07 H Absolute Nucleated RBC 0.00 Immature Gran % 1 H Nucleated RBC % 0 Sodium 141 Potassium 3.8 Chloride 117 H Carbon Dioxide 18.5 L Anion Gap 6 L BUN 8 L Creatinine 0.5 L Estim Creat Clear Calc 144.0 eGFR > 60 BUN/Creatinine Ratio 16 Glucose 152 H Calculated Osmolality 282 Calcium 7.9 L Corrected Calcium 9.0 Phosphorus 3.0 Magnesium 2.3 Total Bilirubin 0.4 AST 64 H ALT 28 Alkaline Phosphatase 52 Total Protein 4.5 L Albumin 2.6 L Globulin 1.9 L Albumin/Globulin Ratio 1.4 Vancomycin Trough 15.8 H ABG Interpretation ABG results: 05/14/24 05/15/24 17:25 16:48 VBG pH 7.49 7.39 VBG pCO2 21 L 28 L VBG pO2 35 43 VBG Base Excess -5 L -7 L Quality Measures Quality Measures VTE prophylaxis (Heparin ) Assessment & Plan Assessment Current Active Medications: Generic Name Dose Route Start Last Admin Trade Name Freq PRN Reason Stop Dose Admin Acetaminophen 650 mg 05/15/24 18:27 05/24/24 04:08 Acetaminophen 325 Mg Tablet PO 06/14/24 18:26 650 mg Q4HR PRN Administration Fever >101 or pain 1-3 Acetazolamide 250 mg 05/23/24 21:00 05/25/24 09:16 Acetazolamide 250 Mg Tablet PO 06/22/24 20:59 Not Given BID MEGAN Capsaicin 0 gm 05/20/24 16:15 05/24/24 09:44 Capsaicin Cr 60 Gm Tube TOP 06/19/24 16:14 Not Given QOD MEGAN Dextrose 25 ml 05/15/24 05:02 Dextrose 50%-Water Inj 50 Ml Syringe IV 06/14/24 05:01 Q15MIN PRN BG 50-70 responsive npo pt Dextrose 50 ml 05/15/24 05:02 Dextrose 50%-Water Inj 50 Ml Syringe IV 06/14/24 05:01 Q15MIN PRN BG <50 OR BG <70 & pt unresponsive Glucagon 1 mg 05/15/24 05:02 Glucagon Inj 1 Mg Vial IM Q15MIN PRN BG <70, and no IV access Heparin Sodium (Porcine) 5,000 unit 05/15/24 09:00 05/25/24 09:12 Heparin Sod Inj 5000 Unit/Ml Vial SC 05/29/24 08:59 5,000 unit Q12HR MEGAN Administration Promethazine HCl 6.25 mg/ 50.25 mls @ 2.5 mls/min 05/17/24 20:30 05/25/24 12:09 Sodium Chloride IV 06/16/24 20:29 2.5 mls/min Q6HR MEGAN Administration Thiamine HCl 250 mg/ Sodium 102.5 mls @ 205 mls/hr 05/23/24 09:00 05/25/24 09:13 Chloride IV 05/27/24 09:29 205 mls/hr QDAY MEGAN Administration Fat Emulsion-[place] Oil/Soybean Oil 500 mls @ 32 mls/hr 05/21/24 18:00 05/23/24 17:25 Clinopid 20% Iv IV 06/20/24 17:59 32 mls/hr SuTuTh@1800 MEGAN Administration Piperacillin/Tazobactam/Dextrose 3.375 gm in 50 mls @ 12.5 mls/hr 05/22/24 14:00 05/25/24 06:05 Zosyn IV 05/29/24 13:59 12.5 mls/hr Q8HR MEGAN Administration Vancomycin/Sodium Chloride 200 mls @ 120 mls/hr 05/22/24 09:15 05/25/24 11:28 Vancomycin/Ns 1 Gm Ivpb IV 05/29/24 09:14 120 mls/hr BID@1000,2200 MEGAN Administration Protocol Potassium Acetate 80 meq/ 2,064 mls @ 70 mls/hr 05/24/24 18:00 05/24/24 17:46 Potassium Phosphate 30 mmol/ IV 05/25/24 17:59 70 mls/hr Magnesium Sulfate 2 gm/ QDAY@1800 MEGAN Administration Multivitamins/Minerals 10 ml/ Amino Acids Protocol Potassium Acetate 80 meq/ 2,060 mls @ 69.864 mls/hr 05/25/24 18:00 Potassium Phosphate 30 mmol/ IV 05/26/24 17:59 Multivitamins/Minerals 10 ml/ QDAY@1800 [facility] Amino Acids Protocol Insulin Human Regular 0 unit 05/21/24 17:00 05/25/24 11:30 Insulin Hum Regular 1 Unit/0.01 Ml (Per Unit) SC 06/20/24 16:59 1 unit ACHS MEGAN Administration Protocol Levothyroxine Sodium 125 mcg/ 175 mcg 05/24/24 06:00 05/25/24 06:09 Levothyroxine Sodium 50 mcg PO 06/23/24 05:59 Not Given ACBR MEGAN Lidocaine 1 patch 05/21/24 09:21 05/21/24 10:24 Lidocaine 5% 1 Patch TOP 06/20/24 09:20 1 patch UD PRN Administration PAIN Lorazepam 1 mg 05/21/24 21:00 05/24/24 20:39 Lorazepam 0.5 Mg Tablet PO 05/26/24 20:59 1 mg HS MEGAN Administration Metoclopramide HCl 10 mg 05/23/24 13:10 Metoclopramide 5 Mg Tablet PO 06/22/24 13:09 Q8HR PRN NAUSEA OR VOMITING Ondansetron HCl 4 mg 05/19/24 09:48 05/25/24 01:39 Ondansetron Inj 2 Mg/Ml Inj 2 Ml IV 06/18/24 09:47 4 mg Q6HR PRN Administration NAUSEA OR VOMITING Protocol Pharmacy Consult 1 each 05/22/24 09:00 Vancomycin Pharmacy To Dose 1 Each Each IV 06/21/24 08:59 QDAY PRN CONSULT Plan 59-year-old female with a past medical history of hypertension, diabetes, hypothyroidism and hyperlipidemia who presented to the ED on 05/14/2024 with abdominal pain, nausea and vomiting that has persisted over the last 2 months. The patient has been admitted for management of intractable nausea and vomiting, starvation ketosis. Patient on imaging was found to have spinal epidural abscess with multiple attempts to transfer the patient to a nursing care various institutions infiltrative patient and recommend conservative management. #Intractable nausea and vomiting Patient with diplopia/blurry vision and headache raising suspicion for pseudotumor cerebri subsequently started on acetazolamide with improvement Lumbar puncture unable to be done due to spinal epidural abscess Patient currently on PPN and clear liquid diet Spoke to neurology Dr Hernandez, states very low suspicion for pseudotumor cerebri and recommends discontinuing acetazolamide -DC acetazolamide -Zofran as needed -Reglan as needed -Encourage p.o. intake as tolerated -Neurology on case appreciate recommendations -GI on the case appreciate recommendations #Epidural abscess #Osteomyelitis/discitis Found on lumbar MRI Discussed case with multiple institutions rejected the case recommended conservative management Will continue trying to send the patient for neurosurgical evaluation Currently, patient denies any lower extremity weakness, saddle anesthesia and denies any fecal or urinary incontinence -On IV vancomycin and Zosyn -ID consulted, appreciate recommendations -Continue to pursue transfer #Metabolic acidosis Likely secondary to acetazolamide Current bicarb 18.5 -DC acetazolamide -Continue to monitor #Type 2 diabetes mellitus A1c 6.8 -on insulin sliding scale #Hypothyroidism Patient noted to have TSH of 75 however T4 at 0.76 -Continue levothyroxine 50 mcg daily Case discussed with my senior Dr. Davis PGY-[address] Adeel Borja MD PGY-1 Disposition: Medsurg Fluids: None Feeding: Clear liquid diet + PPN Thrombo prophylaxis: Heparin Gastric Ulcer prophylaxis: none CODE STATUS: Full code ------- ------- ----- Senior resident attestation: The patient came in with chief complaint of unrelenting nausea and vomiting after eating meals. Noted severe hypokalemia and metabolic acidosis, possible RTA type I, associated with neurological symptoms including horizontal nystagmus and binocular diplopia, weight loss, also complaining of back pain for the past few months. #Discitis?lumbar vertebra #Spinal epidural abscess ?During the clinical course and evaluation MRI lumbar spine showed concern for early spinal epidural abscess, and discitis of lumbar vertebra. Associated with neurological deficits including paresthesias bilateral lower extremities and right sided limb weakness, neurological exam shows objective weakness of the right lower extremity, also complaining of pain on right lower extremity movement in the hip joint. No bowel or bladder incontinence or saddle anesthesia. Currently patient ambulates with a walker. Transfer was attempted, but patient was denied transfer for neurosurgical intervention at [facility] and [facility]. Spoke to radiologist, who reiterated increased T2 enhancement of vertebral bodies as well as epidural layer around the lumbar vertebra. No definite abscess noted, no cord compression at this moment, if patient does not get transfer and neurosurgical intervention is not available, we will continue with conservative management including IV antibiotics vancomycin and Zosyn. ID was consulted who recommended switching to ceftriaxone and doxycycline. Literature review shows spinal epidural abscess, common pathogen Staph aureus and two thirds of the cases and 20 to 50% of the cases can be MRSA. We will continue with vancomycin and Zosyn for now, appreciate ID Recs. #Intractable nausea vomiting #Possible pseudotumor cerebri #Diplopia #Nystagmus ? Multiple antiemetics were tried for symptomatic relief, of no clear benefit. Erythromycin was discontinued after patient had severe diarrhea. Continued on Reglan and Phenergan, also received 1 dose of dexamethasone, also added Ativan once nightly. Acetazolamide was added due to concern for pseudotumor cerebri given nonfocal neurological symptoms of diplopia and horizontal nystagmus. Currently patient is able to eat most of her meals, and has not had any vomiting for the past few days. IV medications switched to p.o., small frequent meals added. Patient continues to stay on PPN, patient feels nauseous but is able to tolerate p.o. regular meals now. ?Per neurology, patient likely has gastroparesis, less likely neurological etiology of intractable nausea vomiting. Neurology not excited about acetazolamide, given patient's worsening metabolic acidosis, will hold off on acetazolamide for today, if symptoms continue or worsen we will resume acetazolamide. #Vaginal bleeding ?The patient is postmenopausal, reported new onset vaginal bleeding. This is concerning in the setting of postmenopausal, will reach out to [employer] for further recommendations. #Acute anemia ?Continued downtrend of hemoglobin, possible source for GI bleed, as well as possible anemia of chronic disease as well as phlebotomy, nominally increased reticulocyte count. #Metabolic acidosis #Hypokalemia #Possible proximal RTA type I # Initial presentation with severe hypokalemia requiring repeated electrolyte replacement IV n.p.o. for many days as well as concurrent metabolic acidosis. Urine anion gap normal, concern for possible RTA type I. Also possible metabolic acidosis as acetazolamide was added due to concern for pseudotumor cerebri. Quresh PGY2
[2024-05-25 16:00] VITALS: BP 139/80; PULSE 88; PULSE 99; RESP 17; TEMP 36.2; O2SAT 97
[2024-05-25 16:15] LABS: Hematocrit 25.3 % (36.0-46.0)
[2024-05-25 16:18] LABS: Hemoglobin 7.2 g/dL (12.0-16.0)
[2024-05-25] MEDS: POTASSIUM ACET IV (17:36)
[2024-05-25] MEDS: POTASSIUM PHOS IV (17:36)
[2024-05-25] MEDS: [UNRECOGNIZED DRUG - OTHER] IV (17:36)
[2024-05-25] MEDS: MULTIVITAMIN IV (17:36)
--- NOTE | 2024-05-25 17:47 | ESPR_ITS ---
Documentation for date of: 05/25/24 Subjective Subjective Interval history: Nausea vomiting is improved Continue current management Issues of the epidural abscess for which transferred to a tertiary center is being worked up Exam Vital Signs Temp Pulse Resp BP Pulse Ox O2 Del Method 97.2 F 99 17 139/80 H 97 Room Air 05/25/24 16:00 05/25/24 16:00 05/25/24 16:00 05/25/24 16:00 05/25/24 16:00 05/25/24 12:00 Objective Labs 05/25/24 15:44 05/25/24 05:48 Labs: Laboratory Results - last 24 hr 05/25/24 05/25/24 05/25/24 05:48 08:35 15:44 WBC 6.8 RBC 2.63 L Hgb 7.8 L 7.2 L Hct 24.2 L 25.3 L MCV 92 MCH 29.7 MCHC 32.2 RDW Std Deviation 64.7 H Plt Count 171 Neut % (Auto) 46 Lymph % (Auto) 21 [place] % (Auto) 22 H Eos % (Auto) 10 Baso % (Auto) 1 Neut # (Auto) 3.1 Lymph # (Auto) 1.5 [place] # (Auto) 1.5 H Eos # (Auto) 0.7 H Baso # (Auto) 0.0 Immature Gran # (Auto) 0.07 H Absolute Nucleated RBC 0.00 Immature Gran % 1 H Nucleated RBC % 0 Sodium 141 Potassium 3.8 Chloride 117 H Carbon Dioxide 18.5 L Anion Gap 6 L BUN 8 L Creatinine 0.5 L Estim Creat Clear Calc 144.0 eGFR > 60 BUN/Creatinine Ratio 16 Glucose 152 H Calculated Osmolality 282 Calcium 7.9 L Corrected Calcium 9.0 Phosphorus 3.0 Magnesium 2.3 Total Bilirubin 0.4 AST 64 H ALT 28 Alkaline Phosphatase 52 Total Protein 4.5 L Albumin 2.6 L Globulin 1.9 L Albumin/Globulin Ratio 1.4 Vancomycin Trough 15.8 H Blood Type A Positive Antibody Screen NEGATIVE Blood Bank Wristband ID Yes Impressions Impression: # Nausea vomiting improved continue current management # Epidural abscess on broad-spectrum antibiotics ABG Interpretation ABG results: 05/14/24 05/15/24 17:25 16:48 VBG pH 7.49 7.39 VBG pCO2 21 L 28 L VBG pO2 35 43 VBG Base Excess -5 L -7 L Assessment & Plan A&P Narrative mild anemia presumptive gastroparesis dermoid tumor hypothyroid htn hld possible epidural abscess with neg cx on empiric vanco/zosyn ideally, this is drained or pt is referred for such so that if the referral is denied, please document any rationale for no intervention so we all can know why that is the case ok to change zosyn to rocephin and vanco to po doxy and see if other meds can be changed to po too. if empiric rx is to be the goal, then use agents that are supported by micro or are easy to use. she likely needs dermoid addressed at some point as well. will check chart again monday if she remains, but am ok if you just treat her empirically at this point in time current abx are more toxic and require more daily doses then alternative empiric rx. Time Spent With Patient Time: Total time spent is greater than 50% in coordination of care (as documented) at patient's floor/unit and/or counseling patient:
[2024-05-25 18:10] VITALS: BMI 37.5
--- NOTE | 2024-05-25 19:39 | PC.NURSE ---
Received a ca0
--- NOTE | 2024-05-25 19:39 | PC.NURSE ---
Addendum entered by Rachael Kumar RN 05/25/24 21:34: 1948H Informed Dr. Navarro that I received a call from [facility] gonz[facility] [place] and they need to verify if the pt is still for transfer. Original Note: Received a call from [facility] [place] regarding pt's pending transfer. Informed Clari I have to verify the transfer request from the Doctor and I will call her back.
--- NOTE | 2024-05-25 19:40 | PC.NURSE ---
Addendum entered by Rachael Kumar RN 05/25/24 22:19: 1950H Called back [facility] of [facility] and informed her that Cristin GIL spoke to one of the Doctors saying that the pt is still for transfer. Clari informed Cristin GIL that paperworks like face sheet, H & P, Progress Notes, Lab results, CT images, MRI images are needed to be fax to them [phone]. Informed Clari that Cristni GIL will be escalating it to Charge Nurse. Original Note: Received a call from [facility] g[facility] regarding pt's pending transfer, Clari said that they haven't received any paperworks for the transfer. Informed Clari I have to verify the transfer request from the Doctor and I will call her back.
[2024-05-25 20:00] VITALS: BP 108/87; PULSE 85; PULSE 87; RESP 18; TEMP 36.4; O2SAT 99
--- NOTE | 2024-05-25 21:40 | PC.NURSE ---
Informed Dr. Navarro that I received a call from [facility] of [facility] stating that they haven't received any transfer paperworks request and they need to verify if the pt is still for transfer. Dr. Navarro said that the pt is still for transfer.
--- NOTE | 2024-05-25 23:13 | PD.VPROG1 ---
Telemedicine visit statement This visit was conducted with the use of phone was obtained on 05/25/24 at 2313. Documentation for date of: 05/25/24 Subjective Subjective Interval history: Patient is in MedSurg. tolerating oral diet well without any nausea or vomiting, no new symptoms reported. Virtual exam Vital Signs Temp Pulse Resp BP Pulse Ox O2 Del Method 97.6 F 85 18 108/87 H 99 Room Air 05/25/24 20:00 05/25/24 20:00 05/25/24 20:00 05/25/24 20:00 05/25/24 20:00 05/25/24 20:00 Objective Labs 05/25/24 15:44 05/25/24 05:48 Labs: Laboratory Results - last 24 hr 05/25/24 05/25/24 05/25/24 05:48 08:35 15:44 WBC 6.8 RBC 2.63 L Hgb 7.8 L 7.2 L Hct 24.2 L 25.3 L MCV 92 MCH 29.7 MCHC 32.2 RDW Std Deviation 64.7 H Plt Count 171 Neut % (Auto) 46 Lymph % (Auto) 21 [place] % (Auto) 22 H Eos % (Auto) 10 Baso % (Auto) 1 Neut # (Auto) 3.1 Lymph # (Auto) 1.5 [place] # (Auto) 1.5 H Eos # (Auto) 0.7 H Baso # (Auto) 0.0 Immature Gran # (Auto) 0.07 H Absolute Nucleated RBC 0.00 Immature Gran % 1 H Nucleated RBC % 0 Sodium 141 Potassium 3.8 Chloride 117 H Carbon Dioxide 18.5 L Anion Gap 6 L BUN 8 L Creatinine 0.5 L Estim Creat Clear Calc 144.0 eGFR > 60 BUN/Creatinine Ratio 16 Glucose 152 H Calculated Osmolality 282 Calcium 7.9 L Corrected Calcium 9.0 Phosphorus 3.0 Magnesium 2.3 Total Bilirubin 0.4 AST 64 H ALT 28 Alkaline Phosphatase 52 Total Protein 4.5 L Albumin 2.6 L Globulin 1.9 L Albumin/Globulin Ratio 1.4 Vancomycin Trough 15.8 H Blood Type A Positive Antibody Screen NEGATIVE Blood Bank Wristband ID Yes ABG Interpretation ABG results: 05/14/24 05/15/24 17:25 16:48 VBG pH 7.49 7.39 VBG pCO2 21 L 28 L VBG pO2 35 43 VBG Base Excess -5 L -7 L Assessment & Plan Problem List (1) Lumbar disc disease: Status: Acute Assessment and plan: Continue with IV antibiotics. Assessment 1) Intractable nausea and vomiting: Secondary to gastroparesis associated with diabetes mellitus Improved significantly Continue with symptomatic treatment MRI brain did not show any significant white matter changes, not consistent with demyelinating disease. MRI of the C-spine and T-spine: Did not show any evidence of demyelination as seen in neuromyelitis optica spectrum disorder. Hold off on the Diamox for few days and see if the symptoms recur. (2) Diabetes mellitus type 2, insulin dependent: Status: Acute Assessment and plan: Continue to check fingerstick glucose and follow sliding scale insulin per protocol
[2024-05-26] VITALS (7 sets, daily range): BP systolic 112–131; BP diastolic 54–89; PULSE 85–94; RESP 16–20; TEMP 36.4–37.2; O2SAT 97–99
[2024-05-26] MEDS: PROMETHAZINE INJ 6.25 MG in SODIUM CHLORIDE 0.9% 50 ML 2.5 MG IV ×4 (05:10→23:15)
[2024-05-26] MEDS: LEVOTHYROXINE SODIUM 125 MCG, LEVOTHYROXINE SODIUM 50 MCG 175 MCG PO (05:10)
[2024-05-26] MEDS: PIPER/TAZO 3.375 GM 3.375 GM/50 ML BAG IV ×3 (05:43→22:41)
[2024-05-26] MEDS: HEPARIN SOD INJ 5000 UNIT/ML VIAL SC ×2 (08:04→21:50)
[2024-05-26] MEDS: INSULIN HUM REGULAR 1 UNIT/0.01 ML (PER UNIT) SC ×3 (08:05→18:06)
[2024-05-26 10:01] LABS: Basophils % (Auto) 0 % (0-2.5); Eosinophils # (Auto) 0.5 Thou/mm3 (0.0-0.5); Eosinophils % (Auto) 7 % (0-10); Hematocrit 24.5 % (36.0-46.0); Immature Granulocytes % (Auto) 1 % (0-0); Immature Granulocytes Auto 0.05 Thou/mm3 (0.00-0.00); Lymphocytes # (Auto) 1.6 Thou/mm3 (1.0-4.8); Lymphocytes % (Auto) 21 % (10-50); Mean Corpuscular HGB Conc 32.7 g/dl (31.0-37.0); Mean Corpuscular Volume 92 fL (80-100); Monocytes # (Auto) 1.8 Thou/mm3 (0.0-0.8); Monocytes % (Auto) 24 % (0-12); Neutrophils # (Auto) 3.6 Thou/mm3 (1.8-7.7); Neutrophils % (Auto) 47 % (37-80); Nucleated Red Blood Cell % 0 /100 WBC (0); Platelet Count 83 Thou/mm3 (140-440); RDW Standard Deviation 67.2 fL (36.4-46.3); Red Blood Count 2.67 Miln/mm3 (4.00-5.20); White Blood Count 7.6 Thou/mm3 (3.6-11.0)
[2024-05-26] MEDS: THIAMINE INJ 250 MG in SODIUM CHLORIDE 0.9% 100 ML 205 MG IV (10:13)
[2024-05-26 10:30] LABS: Alanine Aminotransferase 23 U/L (10-49); Albumin, Serum 2.9 gm/dL (3.5-5.0); Albumin/Globulin Ratio 1.3 (1.2-2.2); Alkaline Phosphatase 43 U/L (46-116); Anion Gap 9 (7-16); Aspartate Amino Transferase 44 U/L (0-34); BUN/Creatinine Ratio 14 Ratio (12-20); Bilirubin,Total 0.5 mg/dL (0.3-1.2); Blood Urea Nitrogen 7 mg/dL (9-23); Calcium 8.3 mg/dL (8.3-10.6); Calcium (Corrected) 9.2 mg/dL (8.5-10.1); Carbon Dioxide 17.6 mMol/L (20.0-31.0); Chloride 113 mMol/L (98-107); Creatinine (Component) 0.5 mg/dL (0.6-1.3); Estimated Creatinine Clearance 140.8 mL/min (>60); Globulin 2.3 gm/dL (2.3-3.5); Glucose 113 mg/dL (74-106); Magnesium 2.1 mg/dL (1.6-2.6); Osmolality,Calculated 278 (275-295); Phosphorous 2.6 mg/dL (2.4-5.1); Potassium 3.7 mMol/L (3.4-5.1); Sodium 140 mMol/L (136-145); Total Protein 5.2 gm/dL (5.7-8.2); eGFR > 60 See Note
--- NOTE | 2024-05-26 10:42 | PC.CM ---
Addendum entered by Laney Griffith RN 05/26/24 10:47: 1047 called [facility], spoke to [facility] and informed transfer request is canceled. Original Note: [address] Davis and informed that I spoke to Dr. Denis yesterday and transfer has been canceled. 1038 spoke to charge nurse inquiring about the transfer status. I informed her that I spoke to Dr. Denis yesterday and he canceled the transfer and it's documented in my notes.
[2024-05-26] MEDS: VANCOMYCIN/NS 1 GM IVPB 200 ML IV ×2 (11:10→21:42)
[2024-05-26] MEDS: SIMETHICONE 80 MG CHEW PO (12:52)
--- NOTE | 2024-05-26 14:31 | ESPR_ITS ---
<Statement entered by Oumou Denis MD - 06/11/24 09:28> I reviewed above note and agree with findings and plans. I have also personally examined the patient with medicine team and went over assessment and plan with medical team including gallery intern and resident physician. Documentation for date of: 05/26/24 Subjective Subjective Interval history: Patient examined at bedside today. No acute overnight events. Still experiencing some nausea and vomiting. Has been able to tolerate p.o. off-and-on, but has been more nauseous. No other complaints at this time Exam Vital Signs Temp Pulse Resp BP Pulse Ox O2 Del Method 98.4 F 92 19 127/77 98 Room Air 05/26/24 12:00 05/26/24 12:00 05/26/24 12:00 05/26/24 12:00 05/26/24 12:00 05/26/24 12:00 Narrative Exam General: AAOx3, NAD, HEENT: Dry mucous membranes, conjunctiva clear, EOMI, PERRLA, Cardiovascular: S1, S2, radial pulses +2 bilat, RRR Pulmonary: CTAB bilat no cough, no wheezing GI: Slight tenderness to light palpitation, no guarding, rigidity, rebound tenderness or distension, bowel sounds present Extremities: No presence of trace or pitting edema in lower extremities bilaterally, dorsalis pedis pulses +2 bilaterally, L upper hand in site of IV erythematous and TTP Neuro: AAOx3, no focal sensorimotor deficits Psych: Good judgement, thought and behavior. Cooperative Objective Labs 05/27/24 09:41 05/27/24 09:41 Labs: Laboratory Results - last 24 hr 05/25/24 05/26/24 15:44 09:10 WBC 7.6 RBC 2.67 L Hgb 7.2 L 8.0 L Hct 25.3 L 24.5 L MCV 92 MCH 30.0 MCHC 32.7 RDW Std Deviation 67.2 H Plt Count 83 L D Neut % (Auto) 47 Lymph % (Auto) 21 [place] % (Auto) 24 H Eos % (Auto) 7 Baso % (Auto) 0 Neut # (Auto) 3.6 Lymph # (Auto) 1.6 [place] # (Auto) 1.8 H Eos # (Auto) 0.5 Baso # (Auto) 0.0 Immature Gran # (Auto) 0.05 H Absolute Nucleated RBC 0.00 Immature Gran % 1 H Nucleated RBC % 0 Sodium 140 Potassium 3.7 Chloride 113 H Carbon Dioxide 17.6 L Anion Gap 9 BUN 7 L Creatinine 0.5 L Estim Creat Clear Calc 140.8 eGFR > 60 BUN/Creatinine Ratio 14 Glucose 113 H Calculated Osmolality 278 Calcium 8.3 Corrected Calcium 9.2 Phosphorus 2.6 Magnesium 2.1 Total Bilirubin 0.5 AST 44 H ALT 23 Alkaline Phosphatase 43 L Total Protein 5.2 L Albumin 2.9 L Globulin 2.3 Albumin/Globulin Ratio 1.3 Blood Type A Positive Antibody Screen NEGATIVE Blood Bank Wristband ID Yes ABG Interpretation ABG results: 05/14/24 05/15/24 17:25 16:48 VBG pH 7.49 7.39 VBG pCO2 21 L 28 L VBG pO2 35 43 VBG Base Excess -5 L -7 L Quality Measures Quality Measures VTE prophylaxis (Heparin ) Assessment & Plan Assessment Current Active Medications: Generic Name Dose Route Start Last Admin Trade Name Freq PRN Reason Stop Dose Admin Acetaminophen 650 mg 05/15/24 18:27 05/24/24 04:08 Acetaminophen 325 Mg Tablet PO 06/14/24 18:26 650 mg Q4HR PRN Administration Fever >101 or pain 1-3 Dextrose 25 ml 05/15/24 05:02 Dextrose 50%-Water Inj 50 Ml Syringe IV 06/14/24 05:01 Q15MIN PRN BG 50-70 responsive npo pt Dextrose 50 ml 05/15/24 05:02 Dextrose 50%-Water Inj 50 Ml Syringe IV 06/14/24 05:01 Q15MIN PRN BG <50 OR BG <70 & pt unresponsive Glucagon 1 mg 05/15/24 05:02 Glucagon Inj 1 Mg Vial IM Q15MIN PRN BG <70, and no IV access Heparin Sodium (Porcine) 5,000 unit 05/15/24 09:00 05/26/24 08:04 Heparin Sod Inj 5000 Unit/Ml Vial SC 05/29/24 08:59 5,000 unit Q12HR MEGAN Administration Promethazine HCl 6.25 mg/ 50.25 mls @ 2.5 mls/min 05/17/24 20:30 05/26/24 12:52 Sodium Chloride IV 06/16/24 20:29 2.5 mls/min Q6HR MEGAN Administration Thiamine HCl 250 mg/ Sodium 102.5 mls @ 205 mls/hr 05/23/24 09:00 05/26/24 10:13 Chloride IV 05/27/24 09:29 205 mls/hr QDAY MEGAN Administration Fat Emulsion-[place] Oil/Soybean Oil 500 mls @ 32 mls/hr 05/21/24 18:00 05/23/24 17:25 Clinopid 20% Iv IV 06/20/24 17:59 32 mls/hr SuTuTh@1800 MEGAN Administration Piperacillin/Tazobactam/Dextrose 3.375 gm in 50 mls @ 12.5 mls/hr 05/22/24 14:00 05/26/24 05:43 Zosyn IV 05/29/24 13:59 12.5 mls/hr Q8HR MEGAN Administration Vancomycin/Sodium Chloride 200 mls @ 120 mls/hr 05/22/24 09:15 05/26/24 11:10 Vancomycin/Ns 1 Gm Ivpb IV 05/29/24 09:14 120 mls/hr BID@1000,2200 MEGAN Administration Protocol Potassium Acetate 80 meq/ 2,060 mls @ 69.864 mls/hr 05/25/24 18:00 05/25/24 17:36 Potassium Phosphate 30 mmol/ IV 05/26/24 17:59 69.864 mls/hr Multivitamins/Minerals 10 ml/ QDAY@1800 MEGAN Administration Amino Acids Protocol Potassium Acetate 80 meq/ 2,064 mls @ 70 mls/hr 05/26/24 18:00 Potassium Phosphate 30 mmol/ IV 05/27/24 17:59 Magnesium Sulfate 2 gm/ .Q24H MEGAN Multivitamins/Minerals 10 ml/ Amino Acids Insulin Human Regular 0 unit 05/21/24 17:00 05/26/24 11:40 Insulin Hum Regular 1 Unit/0.01 Ml (Per Unit) SC 06/20/24 16:59 1 unit ACHS MEGAN Administration Protocol Levothyroxine Sodium 125 mcg/ 175 mcg 05/24/24 06:00 05/26/24 05:10 Levothyroxine Sodium 50 mcg PO 06/23/24 05:59 175 mcg ACBR MEGAN Administration Lidocaine 1 patch 05/21/24 09:21 05/21/24 10:24 Lidocaine 5% 1 Patch TOP 06/20/24 09:20 1 patch UD PRN Administration PAIN Ondansetron HCl 4 mg 05/19/24 09:48 05/25/24 20:49 Ondansetron Inj 2 Mg/Ml Inj 2 Ml IV 06/18/24 09:47 4 mg Q6HR PRN Administration NAUSEA OR VOMITING Protocol Pharmacy Consult 1 each 05/22/24 09:00 Vancomycin Pharmacy To Dose 1 Each Each IV 06/21/24 08:59 QDAY PRN CONSULT Simethicone 80 mg 05/26/24 11:42 Simethicone 80 Mg Chew PO 06/25/24 11:41 QID PRN GAS Plan 59-year-old female with a past medical history of hypertension, diabetes, hypothyroidism and hyperlipidemia who presented to the ED on 05/14/2024 with abdominal pain, nausea and vomiting that has persisted over the last 2 months. The patient has been admitted for management of intractable nausea and vomiting, starvation ketosis. Patient on imaging was found to have spinal epidural abscess with multiple attempts to transfer the patient to a nursing care various institutions infiltrative patient and recommend conservative management. #Intractable nausea and vomiting Patient with diplopia/blurry vision and headache raising suspicion for pseudotumor cerebri subsequently started on acetazolamide with improvement Lumbar puncture unable to be done due to spinal epidural abscess Patient currently on PPN and clear liquid diet Spoke to neurology Dr Hernandez, states very low suspicion for pseudotumor cerebri and recommends discontinuing acetazolamide Will hold diamox to see how pt responds -DC acetazolamide -Zofran as needed -Reglan as needed -Encourage p.o. intake as tolerated -Neurology on case appreciate recommendations -GI on the case appreciate recommendations #Epidural abscess #Osteomyelitis/discitis Found on lumbar MRI Discussed case with multiple institutions rejected the case recommended conservative management Will continue trying to send the patient for neurosurgical evaluation Currently, patient denies any lower extremity weakness, saddle anesthesia and denies any fecal or urinary incontinence ID recommends for pt to have drainage of abscess at some point Will call off on discharge and continue with abx treatment at this time -On IV vancomycin and Zosyn -ID consulted, appreciate recommendations -Continue to pursue transfer #Metabolic acidosis Likely secondary to acetazolamide Current bicarb ~18 -DC acetazolamide -Continue to monitor #Electrolyte abnormalities #Hypokalemia secondary to #GI losses #Diarrhea Plan: ?Replete as needed ?Treat as above with antiemetics ?As above #Type 2 diabetes mellitus A1c 6.8 -on insulin sliding scale #Hypothyroidism Patient noted to have TSH of 75 however T4 at 0.76 ?Synthroid 175 mcg p.o. #Health Maintenance Disposition: Medsurg DVT prophylaxis: Heparin GI prophylaxis: Simethicone Diet: Clear liquid diet and PPN CODE STATUS: Full Patient seen and care discussed with my senior resident, Dr. Davis , and my attending physician, Dr. Adeel Solorio, PGY-1 Senior resident attestation: The patient came in with chief complaint of unrelenting nausea and vomiting after eating meals. Noted severe hypokalemia and metabolic acidosis, possible RTA type I, associated with neurological symptoms including horizontal nystagmus and binocular diplopia, weight loss, also complaining of back pain for the past few months. #Discitis?lumbar vertebra #Spinal epidural abscess ?During the clinical course and evaluation MRI lumbar spine showed concern for early spinal epidural abscess, and discitis of lumbar vertebra. Associated with neurological deficits including paresthesias bilateral lower extremities and right sided limb weakness, neurological exam shows objective weakness of the right lower extremity, also complaining of pain on right lower extremity movement in the hip joint. No bowel or bladder incontinence or saddle anesthesia. Currently patient ambulates with a walker. Transfer was attempted, but patient was denied transfer for neurosurgical [facility] Spoke to radiologist, who reiterated increased T2 enhancement of vertebral bodies as well as epidural layer around the lumbar vertebra. No definite abscess noted, no cord compression at this moment, if patient does not get transfer and neurosurgical intervention is not available, we will continue with conservative management including IV antibiotics vancomycin and Zosyn. ID was consulted who recommended switching to ceftriaxone and doxycycline. Literature review shows spinal epidural abscess, common pathogen Staph aureus and two thirds of the cases and 20 to 50% of the cases can be MRSA. We will continue with vancomycin and Zosyn for now, appreciate ID Recs. #Intractable nausea vomiting #Possible pseudotumor cerebri #Diplopia #Nystagmus ? Multiple antiemetics were tried for symptomatic relief, of no clear benefit. Erythromycin was discontinued after patient had severe diarrhea. Continued on Reglan and Phenergan, also received 1 dose of dexamethasone, also added Ativan once nightly. Acetazolamide was added due to concern for pseudotumor cerebri given nonfocal neurological symptoms of diplopia and horizontal nystagmus. Currently patient is able to eat most of her meals, and has not had any vomiting for the past few days. IV medications switched to p.o., small frequent meals added. Patient continues to stay on PPN, patient feels nauseous but is able to tolerate p.o. regular meals now. ?Per neurology, patient likely has gastroparesis, less likely neurological etiology of intractable nausea vomiting. Neurology not excited about acetazolamide, given patient's worsening metabolic acidosis, will hold off on acetazolamide for today, if symptoms continue or worsen we will resume acetazolamide. #Vaginal bleeding ?The patient is postmenopausal, reported new onset vaginal bleeding. This is concerning in the setting of postmenopausal, will reach out to ORGANISATIONAL PSYCHOLOGIST for further recommendations. #Acute anemia ?Continued downtrend of hemoglobin, possible source for GI bleed, as well as possible anemia of chronic disease as well as phlebotomy, nominally increased reticulocyte count. #Metabolic acidosis #Hypokalemia #Possible proximal RTA type I # Initial presentation with severe hypokalemia requiring repeated electrolyte replacement IV n.p.o. for many days as well as concurrent metabolic acidosis. Urine anion gap normal, concern for possible RTA type I. Also possible metabolic acidosis as acetazolamide was added due to concern for pseudotumor cerebri. Quresh PGY2
--- NOTE | 2024-05-26 16:11 | PC.SS ---
Rounding: Pending ID [email or web address]
--- NOTE | 2024-05-26 16:15 | ESPR_ITS ---
Documentation for date of: 05/26/24 Subjective Subjective Interval history: No further nausea vomiting Issue at the moment is the epidural abscess Exam Vital Signs Temp Pulse Resp BP Pulse Ox O2 Del Method 98.9 F 85 18 118/72 97 Room Air 05/26/24 16:00 05/26/24 16:00 05/26/24 16:00 05/26/24 16:00 05/26/24 16:00 05/26/24 12:00 Objective Labs 05/26/24 09:10 05/26/24 09:10 Labs: Laboratory Results - last 24 hr 05/25/24 05/26/24 15:44 09:10 WBC 7.6 RBC 2.67 L Hgb 7.2 L 8.0 L Hct 25.3 L 24.5 L MCV 92 MCH 30.0 MCHC 32.7 RDW Std Deviation 67.2 H Plt Count 83 L D Neut % (Auto) 47 Lymph % (Auto) 21 [place] % (Auto) 24 H Eos % (Auto) 7 Baso % (Auto) 0 Neut # (Auto) 3.6 Lymph # (Auto) 1.6 [place] # (Auto) 1.8 H Eos # (Auto) 0.5 Baso # (Auto) 0.0 Immature Gran # (Auto) 0.05 H Absolute Nucleated RBC 0.00 Immature Gran % 1 H Nucleated RBC % 0 Sodium 140 Potassium 3.7 Chloride 113 H Carbon Dioxide 17.6 L Anion Gap 9 BUN 7 L Creatinine 0.5 L Estim Creat Clear Calc 140.8 eGFR > 60 BUN/Creatinine Ratio 14 Glucose 113 H Calculated Osmolality 278 Calcium 8.3 Corrected Calcium 9.2 Phosphorus 2.6 Magnesium 2.1 Total Bilirubin 0.5 AST 44 H ALT 23 Alkaline Phosphatase 43 L Total Protein 5.2 L Albumin 2.9 L Globulin 2.3 Albumin/Globulin Ratio 1.3 Blood Type A Positive Antibody Screen NEGATIVE Blood Bank Wristband ID Yes Impressions Impression: # Nausea vomiting improved continue current management # Epidural abscess on IV antibiotics ABG Interpretation ABG results: 05/14/24 05/15/24 17:25 16:48 VBG pH 7.49 7.39 VBG pCO2 21 L 28 L VBG pO2 35 43 VBG Base Excess -5 L -7 L Assessment & Plan A&P Narrative mild anemia presumptive gastroparesis dermoid tumor hypothyroid htn hld possible epidural abscess with neg cx on empiric vanco/zosyn ideally, this is drained or pt is referred for such so that if the referral is denied, please document any rationale for no intervention so we all can know why that is the case ok to change zosyn to rocephin and vanco to po doxy and see if other meds can be changed to po too. if empiric rx is to be the goal, then use agents that are supported by micro or are easy to use. she likely needs dermoid addressed at some point as well. will check chart again monday if she remains, but am ok if you just treat her empirically at this point in time current abx are more toxic and require more daily doses then alternative empiric rx. Time Spent With Patient Time: Total time spent is greater than 50% in coordination of care (as documented) at patient's floor/unit and/or counseling patient:
[2024-05-26] MEDS: FAT EMUL/OLIVE/SOY/PHOS 20% IV 500 ML 32 ML IV (18:47)
[2024-05-26] MEDS: [UNRECOGNIZED DRUG - OTHER] IV (18:47)
[2024-05-26] MEDS: POTASSIUM ACET IV (18:47)
[2024-05-26] MEDS: POTASSIUM PHOS IV (18:47)
[2024-05-26] MEDS: MAGNESIUM SULF IV (18:47)
--- NOTE | 2024-05-26 20:44 | VVPN_ITS ---
Telemedicine visit statement This visit was conducted with the use of phone was obtained on 05/26/24 at 2044. Documentation for date of: 05/26/24 Subjective Subjective Interval history: Patient is in MedSurg. Still with nausea, numbness in the right upper extremity and right lower extremity. As needed Phenergan and Zofran. Virtual exam Vital Signs Temp Pulse Resp BP Pulse Ox O2 Del Method 98.9 F 85 18 118/72 97 Room Air 05/26/24 16:00 05/26/24 16:00 05/26/24 16:00 05/26/24 16:00 05/26/24 16:00 05/26/24 12:00 Objective Labs 05/26/24 09:10 05/26/24 09:10 Labs: Laboratory Results - last 24 hr 05/26/24 09:10 WBC 7.6 RBC 2.67 L Hgb 8.0 L Hct 24.5 L MCV 92 MCH 30.0 MCHC 32.7 RDW Std Deviation 67.2 H Plt Count 83 L D Neut % (Auto) 47 Lymph % (Auto) 21 [place] % (Auto) 24 H Eos % (Auto) 7 Baso % (Auto) 0 Neut # (Auto) 3.6 Lymph # (Auto) 1.6 [place] # (Auto) 1.8 H Eos # (Auto) 0.5 Baso # (Auto) 0.0 Immature Gran # (Auto) 0.05 H Absolute Nucleated RBC 0.00 Immature Gran % 1 H Nucleated RBC % 0 Sodium 140 Potassium 3.7 Chloride 113 H Carbon Dioxide 17.6 L Anion Gap 9 BUN 7 L Creatinine 0.5 L Estim Creat Clear Calc 140.8 eGFR > 60 BUN/Creatinine Ratio 14 Glucose 113 H Calculated Osmolality 278 Calcium 8.3 Corrected Calcium 9.2 Phosphorus 2.6 Magnesium 2.1 Total Bilirubin 0.5 AST 44 H ALT 23 Alkaline Phosphatase 43 L Total Protein 5.2 L Albumin 2.9 L Globulin 2.3 Albumin/Globulin Ratio 1.3 ABG Interpretation ABG results: 05/14/24 05/15/24 17:25 16:48 VBG pH 7.49 7.39 VBG pCO2 21 L 28 L VBG pO2 35 43 VBG Base Excess -5 L -7 L Assessment & Plan Problem List (1) Lumbar disc disease: Status: Acute Assessment and plan: Discitis: Continue with IV antibiotics. Assessment 1) Intractable nausea and vomiting: Secondary to gastroparesis associated with diabetes mellitus Improving significantly Continue with symptomatic treatment MRI brain did not show any significant white matter changes, not consistent with demyelinating disease. MRI of the C-spine and T-spine: Did not show any evidence of demyelination as seen in neuromyelitis optica spectrum disorder. Hold off on the Diamox for few days and see if the symptoms recur, as pseudotumor cerebri is very unlikely. (2) Diabetes mellitus type 2, insulin dependent: Status: Acute Assessment and plan: Continue to check fingerstick glucose and follow sliding scale insulin per protocol
[2024-05-27] VITALS: BP 136/71; PULSE 96; RESP 20; TEMP 36.6; O2SAT 99
[2024-05-27 04:00] VITALS: BP 136/77; PULSE 105; RESP 20; TEMP 36.6; O2SAT 98
[2024-05-27] MEDS: ONDANSETRON INJ 2 MG/ML INJ 2 ML 4 MG IV (04:35)
[2024-05-27] MEDS: LIDOCAINE 5% 1 PATCH TOP (04:35)
[2024-05-27] MEDS: PROMETHAZINE INJ 6.25 MG in SODIUM CHLORIDE 0.9% 50 ML 2.5 MG IV ×3 (05:10→18:41)
[2024-05-27] MEDS: PIPER/TAZO 3.375 GM 3.375 GM/50 ML BAG IV ×2 (06:20→14:49)
[2024-05-27 06:30] LABS: Basophils # (Auto) 0.1 Thou/mm3 (0.0-0.2); Basophils % (Auto) 1 % (0-2.5); Eosinophils # (Auto) 0.5 Thou/mm3 (0.0-0.5); Eosinophils % (Auto) 8 % (0-10); Immature Granulocytes % (Auto) 2 % (0-0); Immature Granulocytes Auto 0.09 Thou/mm3 (0.00-0.00); Lymphocytes # (Auto) 1.5 Thou/mm3 (1.0-4.8); Lymphocytes % (Auto) 25 % (10-50); Mean Corpuscular HGB Conc 41.3 g/dl (31.0-37.0); Mean Corpuscular Hemoglobin 41.1 pg (25.0-35.0); Mean Corpuscular Volume 100 fL (80-100); Monocytes # (Auto) 1.3 Thou/mm3 (0.0-0.8); Monocytes % (Auto) 22 % (0-12); Neutrophils # (Auto) 2.5 Thou/mm3 (1.8-7.7); Neutrophils % (Auto) 43 % (37-80); Nucleated Red Blood Cell # 0.02 Thou/mm3 (0.00-0.00); Nucleated Red Blood Cell % 0 /100 WBC (0); Platelet Count 169 Thou/mm3 (140-440); RDW Standard Deviation 76.8 fL (36.4-46.3); Red Blood Count 2.02 Miln/mm3 (4.00-5.20); White Blood Count 5.9 Thou/mm3 (3.6-11.0)
[2024-05-27 06:37] LABS: Hemoglobin 8.3 g/dL (12.0-16.0)
[2024-05-27 06:41] LABS: Hematocrit 20.1 % (36.0-46.0)
--- NOTE | 2024-05-27 06:45 | PC.NURSE ---
Made MD aware of pt's Hct. 20.1
[2024-05-27 06:50] LABS: ANA Screen, IFA POSITIVE (NEGATIVE); DNA (ds) Antibody* 3 IU/mL
[2024-05-27 07:00] LABS: Vitamin B1 (Thiamine)* <6 nmol/L (8-30)
[2024-05-27 07:03] LABS: Thyroid Peroxidase Antibodies* 779 IU/mL (<9)
[2024-05-27 07:46] LABS: Hematocrit 24.1 % (36.0-46.0)
[2024-05-27 07:50] LABS: Hemoglobin 7.5 g/dL (12.0-16.0)
[2024-05-27] MEDS: INSULIN HUM REGULAR 1 UNIT/0.01 ML (PER UNIT) SC ×4 (07:54→22:52)
[2024-05-27 08:00] VITALS: BP 116/70; PULSE 104; PULSE 90; RESP 18; TEMP 36.6; O2SAT 97
[2024-05-27 09:00] VITALS: BMI 33.3
--- NOTE | 2024-05-27 09:00 | ESPR_ITS ---
Subjective Subjective Interval history: still here. no drainage noted. remains on vanco/zosyn Exam Vital Signs Temp Pulse Resp BP Pulse Ox O2 Del Method 97.9 F 104 H 18 116/70 97 Room Air 05/27/24 08:00 05/27/24 08:00 05/27/24 08:00 05/27/24 08:00 05/27/24 08:00 05/27/24 08:00 Narrative Exam awake, alert. moves all spinal imaging a concern. appreciate the notion that no one is eager to operate on her or drain the listed collections on imaging or change their opinions on the collections Objective - Internal Medicine Labs 05/27/24 07:17 05/26/24 09:10 Labs: Laboratory Results - last 24 hr 05/17/24 05/19/24 05/23/24 13:14 17:58 04:55 WBC RBC Hgb Hct MCV MCH MCHC RDW Std Deviation Plt Count Neut % (Auto) Lymph % (Auto) [place] % (Auto) Eos % (Auto) Baso % (Auto) Neut # (Auto) Lymph # (Auto) [place] # (Auto) Eos # (Auto) Baso # (Auto) Immature Gran # (Auto) Absolute Nucleated RBC Immature Gran % Nucleated RBC % Sodium Potassium Chloride Carbon Dioxide Anion Gap BUN Creatinine Estim Creat Clear Calc eGFR BUN/Creatinine Ratio Glucose Calculated Osmolality Calcium Corrected Calcium Phosphorus Magnesium Total Bilirubin AST ALT Alkaline Phosphatase Total Protein Albumin Globulin Albumin/Globulin Ratio Thiamine (Vit B1) Rhys <6 L ADIN Screen POSITIVE A ADIN Titer 1:80 H ADIN Titer 2 TNP ADIN Titer 3 TNP ADIN Pattern ADIN Pattern 2 TNP ADIN Pattern 3 TNP Double Strand DNA Ab 3 Thyroid Peroxidase Ab 779 H 05/26/24 05/27/24 05/27/24 09:10 05:28 07:17 WBC 7.6 5.9 RBC 2.67 L 2.02 L Hgb 8.0 L 8.3 L 7.5 L Hct 24.5 L 20.1 L* 24.1 L MCV 92 100 MCH 30.0 41.1 H MCHC 32.7 41.3 H RDW Std Deviation 67.2 H 76.8 H Plt Count 83 L D 169 D Neut % (Auto) 47 43 Lymph % (Auto) 21 25 [place] % (Auto) 24 H 22 H Eos % (Auto) 7 8 Baso % (Auto) 0 1 Neut # (Auto) 3.6 2.5 Lymph # (Auto) 1.6 1.5 [place] # (Auto) 1.8 H 1.3 H Eos # (Auto) 0.5 0.5 Baso # (Auto) 0.0 0.1 Immature Gran # (Auto) 0.05 H 0.09 H Absolute Nucleated RBC 0.00 0.02 H Immature Gran % 1 H 2 H Nucleated RBC % 0 0 Sodium 140 Cancelled Potassium 3.7 Cancelled Chloride 113 H Cancelled Carbon Dioxide 17.6 L Cancelled Anion Gap 9 Cancelled BUN 7 L Cancelled Creatinine 0.5 L Cancelled Estim Creat Clear Calc 140.8 Cancelled eGFR > 60 Cancelled BUN/Creatinine Ratio 14 Cancelled Glucose 113 H Cancelled Calculated Osmolality 278 Cancelled Calcium 8.3 Cancelled Corrected Calcium 9.2 Cancelled Phosphorus 2.6 Cancelled Magnesium 2.1 Cancelled Total Bilirubin 0.5 Cancelled AST 44 H Cancelled ALT 23 Cancelled Alkaline Phosphatase 43 L Cancelled Total Protein 5.2 L Cancelled Albumin 2.9 L Cancelled Globulin 2.3 Cancelled Albumin/Globulin Ratio 1.3 Cancelled Thiamine (Vit B1) Rhys ADIN Screen ADIN Titer ADIN Titer 2 ADIN Titer 3 ADIN Pattern ADIN Pattern 2 ADIN Pattern 3 Double Strand DNA Ab Thyroid Peroxidase Ab ABG Interpretation ABG results: 05/14/24 05/15/24 17:25 16:48 VBG pH 7.49 7.39 VBG pCO2 21 L 28 L VBG pO2 35 43 VBG Base Excess -5 L -7 L Assessment & Plan A&P Narrative mild anemia presumptive gastroparesis with controlled dm dermoid tumor hypothyroid htn hld possible epidural abscess with neg cx on empiric vanco/zosyn ideally, this is drained or pt is referred for such so that if the referral is denied, please document any rationale for no intervention so we all can know why that is the case ok to change zosyn to rocephin and vanco to po doxy and see if other meds can be changed to po too. if empiric rx is to be the goal, then use agents that are supported by micro or are easy to use. she likely needs dermoid addressed at some point as well. will not see again unless requested as inpt current abx are more toxic and require more daily doses then alternative empiric rx. favor rocephin 2 gm iv daily and po doxy 100 bid thru 07/09 with weekly cbc, renal panel, esr and line removal at end of rx if process remains, please re visit drainage at end of iv run and extend abx will see prn. f/u with dr Reardon on the tpn. I generally do not provide that rx. Time Spent With Patient Time: Total time spent is greater than 50% in coordination of care (as documented) at patient's floor/unit and/or counseling patient:
[2024-05-27] MEDS: HEPARIN SOD INJ 5000 UNIT/ML VIAL SC ×2 (09:50→22:43)
[2024-05-27 10:11] LABS: Basophils % (Auto) 1 % (0-2.5); Eosinophils # (Auto) 0.5 Thou/mm3 (0.0-0.5); Eosinophils % (Auto) 9 % (0-10); Hematocrit 28.3 % (36.0-46.0); Hemoglobin 9.1 g/dL (12.0-16.0); Immature Granulocytes % (Auto) 1 % (0-0); Immature Granulocytes Auto 0.04 Thou/mm3 (0.00-0.00); Lymphocytes # (Auto) 1.9 Thou/mm3 (1.0-4.8); Lymphocytes % (Auto) 31 % (10-50); Mean Corpuscular HGB Conc 32.2 g/dl (31.0-37.0); Mean Corpuscular Hemoglobin 29.5 pg (25.0-35.0); Mean Corpuscular Volume 92 fL (80-100); Monocytes # (Auto) 1.1 Thou/mm3 (0.0-0.8); Monocytes % (Auto) 18 % (0-12); Neutrophils # (Auto) 2.4 Thou/mm3 (1.8-7.7); Neutrophils % (Auto) 41 % (37-80); Nucleated Red Blood Cell # 0.02 Thou/mm3 (0.00-0.00); Nucleated Red Blood Cell % 0 /100 WBC (0); Platelet Count 220 Thou/mm3 (140-440); RDW Standard Deviation 66.6 fL (36.4-46.3); Red Blood Count 3.08 Miln/mm3 (4.00-5.20); White Blood Count 5.9 Thou/mm3 (3.6-11.0)
[2024-05-27 10:38] LABS: Alanine Aminotransferase 29 U/L (10-49); Albumin, Serum 3.7 gm/dL (3.5-5.0); Albumin/Globulin Ratio 1.4 (1.2-2.2); Alkaline Phosphatase 48 U/L (46-116); Anion Gap 11 (7-16); Aspartate Amino Transferase 52 U/L (0-34); BUN/Creatinine Ratio 12 Ratio (12-20); Bilirubin,Total 0.4 mg/dL (0.3-1.2); Blood Urea Nitrogen 7 mg/dL (9-23); Calcium 8.9 mg/dL (8.3-10.6); Calcium (Corrected) 9.1 mg/dL (8.5-10.1); Carbon Dioxide 19.4 mMol/L (20.0-31.0); Chloride 109 mMol/L (98-107); Creatinine (Component) 0.6 mg/dL (0.6-1.3); Estimated Creatinine Clearance 108.4 mL/min (>60); Globulin 2.7 gm/dL (2.3-3.5); Glucose 153 mg/dL (74-106); Magnesium 2.2 mg/dL (1.6-2.6); Osmolality,Calculated 278 (275-295); Potassium 3.7 mMol/L (3.4-5.1); Sodium 139 mMol/L (136-145); Total Protein 6.4 gm/dL (5.7-8.2); eGFR > 60 See Note
[2024-05-27 10:40] VITALS: BMI 32.3
[2024-05-27] MEDS: THIAMINE INJ 250 MG in SODIUM CHLORIDE 0.9% 100 ML 205 MG IV (11:01)
--- NOTE | 2024-05-27 11:12 | PC.SS ---
Correct note on 05/15/24: SS met with patient regarding her d/c plan. Pt is alert/oriented. Pt was admitted for Intractable Nausea and Vomiting. Pt confirmed demographic and contact information is correct on facesheet. Pt resides alone. Pt ambulates using a 4 wheel with seat, rollator walker. Pt is ok with all ADLs. Patient?s pharmacy of choice is [facility] [address]. Pt named her cousin, Mendy Rodriguez, phone# [phone] medical decision maker if she is unable. Patient?s choice is to return home upon d/c. Pt states she is diabetic, has glucometer, and test strips. Pt states she uses insulin injections for her diabetes. Pt follows up with [facility] with Dr. Dill. Pt possibly will require transportation home. D/C plan: Return home Next of Kin: Mendy Rodriguez, cousin, phone# [phone] PCP: [facility] Address: Correct on facesheet
--- NOTE | 2024-05-27 11:38 | PC.SS ---
Follow up note: Pending ID recommendations. Pt possibly will require IV antibiotic at d/c.
--- NOTE | 2024-05-27 11:54 | PD.RESPRO ---
Documentation for date of: 05/27/24 Subjective Subjective Interval history: No overnight events, patient complaining of headache and vertigo, Refers room spinning sensation exacerbated with head movements while turning in bed, most likely BPPV Exam Vital Signs Temp Pulse Resp BP Pulse Ox O2 Del Method 97.9 F 104 H 18 116/70 97 Room Air 05/27/24 08:00 05/27/24 08:00 05/27/24 08:00 05/27/24 08:00 05/27/24 08:00 05/27/24 08:00 Narrative Exam General: AAOx3, NAD, HEENT: Dry mucous membranes, conjunctiva clear, EOMI, PERRLA, Cardiovascular: S1, S2, radial pulses +2 bilat, RRR Pulmonary: CTAB bilat no cough, no wheezing GI: Slight tenderness to light palpitation, no guarding, rigidity, rebound tenderness or distension, bowel sounds present Extremities: No presence of trace or pitting edema in lower extremities bilaterally, dorsalis pedis pulses +2 bilaterally, L upper hand in site of IV erythematous and TTP Neuro: AAOx3, resting tremor in UE bilat Psych: Good judgement, thought and behavior. Cooperative Objective Labs 05/28/24 05:05 05/28/24 05:05 Labs: Laboratory Results - last 24 hr 05/17/24 05/19/24 05/23/24 13:14 17:58 04:55 WBC RBC Hgb Hct MCV MCH MCHC RDW Std Deviation Plt Count Neut % (Auto) Lymph % (Auto) [place] % (Auto) Eos % (Auto) Baso % (Auto) Neut # (Auto) Lymph # (Auto) [place] # (Auto) Eos # (Auto) Baso # (Auto) Immature Gran # (Auto) Absolute Nucleated RBC Immature Gran % Nucleated RBC % Sodium Potassium Chloride Carbon Dioxide Anion Gap BUN Creatinine Estim Creat Clear Calc eGFR BUN/Creatinine Ratio Glucose Calculated Osmolality Calcium Corrected Calcium Phosphorus Magnesium Total Bilirubin AST ALT Alkaline Phosphatase Total Protein Albumin Globulin Albumin/Globulin Ratio Thiamine (Vit B1) Rhys <6 L ADIN Screen POSITIVE A ADIN Titer 1:80 H ADIN Titer 2 TNP ADIN Titer 3 TNP ADIN Pattern ADIN Pattern 2 TNP ADIN Pattern 3 TNP Double Strand DNA Ab 3 Thyroid Peroxidase Ab 779 H 05/27/24 05/27/24 05/27/24 05:28 07:17 09:41 WBC 5.9 5.9 RBC 2.02 L 3.08 L Hgb 8.3 L 7.5 L 9.1 L D Hct 20.1 L* 24.1 L 28.3 L MCV 100 92 MCH 41.1 H 29.5 MCHC 41.3 H 32.2 RDW Std Deviation 76.8 H 66.6 H Plt Count 169 D 220 D Neut % (Auto) 43 41 Lymph % (Auto) 25 31 [place] % (Auto) 22 H 18 H Eos % (Auto) 8 9 Baso % (Auto) 1 1 Neut # (Auto) 2.5 2.4 Lymph # (Auto) 1.5 1.9 [place] # (Auto) 1.3 H 1.1 H Eos # (Auto) 0.5 0.5 Baso # (Auto) 0.1 0.0 Immature Gran # (Auto) 0.09 H 0.04 H Absolute Nucleated RBC 0.02 H 0.02 H Immature Gran % 2 H 1 H Nucleated RBC % 0 0 Sodium Cancelled 139 Potassium Cancelled 3.7 Chloride Cancelled 109 H Carbon Dioxide Cancelled 19.4 L Anion Gap Cancelled 11 BUN Cancelled 7 L Creatinine Cancelled 0.6 Estim Creat Clear Calc Cancelled 108.4 eGFR Cancelled > 60 BUN/Creatinine Ratio Cancelled 12 Glucose Cancelled 153 H Calculated Osmolality Cancelled 278 Calcium Cancelled 8.9 Corrected Calcium Cancelled 9.1 Phosphorus Cancelled 3.0 Magnesium Cancelled 2.2 Total Bilirubin Cancelled 0.4 AST Cancelled 52 H ALT Cancelled 29 Alkaline Phosphatase Cancelled 48 Total Protein Cancelled 6.4 Albumin Cancelled 3.7 D Globulin Cancelled 2.7 Albumin/Globulin Ratio Cancelled 1.4 Thiamine (Vit B1) Rhys ADIN Screen ADIN Titer ADIN Titer 2 ADIN Titer 3 ADIN Pattern ADIN Pattern 2 ADIN Pattern 3 Double Strand DNA Ab Thyroid Peroxidase Ab ABG Interpretation ABG results: 05/14/24 05/15/24 17:25 16:48 VBG pH 7.49 7.39 VBG pCO2 21 L 28 L VBG pO2 35 43 VBG Base Excess -5 L -7 L Quality Measures Quality Measures VTE prophylaxis (Heparin ) Assessment & Plan Assessment Current Active Medications: Generic Name Dose Route Start Last Admin Trade Name Freq PRN Reason Stop Dose Admin Acetaminophen 650 mg 05/15/24 18:27 05/24/24 04:08 Acetaminophen 325 Mg Tablet PO 01/03/25 18:26 650 mg Q4HR PRN Administration Fever >101 or pain 1-3 Citric Acid/Sodium Citrate 30 ml 05/27/24 11:30 Citric Acid/Sodium Citr 15 Ml Udc (Bicitra) PO 06/26/24 11:29 BID MEGAN Dextrose 25 ml 05/15/24 05:02 Dextrose 50%-Water Inj 50 Ml Syringe IV 06/14/24 05:01 Q15MIN PRN BG 50-70 responsive npo pt Dextrose 50 ml 05/15/24 05:02 Dextrose 50%-Water Inj 50 Ml Syringe IV 06/14/24 05:01 Q15MIN PRN BG <50 OR BG <70 & pt unresponsive Glucagon 1 mg 05/15/24 05:02 Glucagon Inj 1 Mg Vial IM Q15MIN PRN BG <70, and no IV access Heparin Sodium (Porcine) 5,000 unit 05/15/24 09:00 05/27/24 09:50 Heparin Sod Inj 5000 Unit/Ml Vial SC 05/29/24 08:59 5,000 unit Q12HR MEGAN Administration Promethazine HCl 6.25 mg/ 50.25 mls @ 2.5 mls/min 05/17/24 20:30 05/27/24 05:10 Sodium Chloride IV 06/16/24 20:29 2.5 mls/min Q6HR MEGAN Administration Fat Emulsion-[place] Oil/Soybean Oil 500 mls @ 32 mls/hr 05/21/24 18:00 05/26/24 18:47 Clinopid 20% Iv IV 06/20/24 17:59 32 mls/hr [id number] MEGAN Administration Piperacillin/Tazobactam/Dextrose 3.375 gm in 50 mls @ 12.5 mls/hr 05/22/24 14:00 05/27/24 06:20 Zosyn IV 05/29/24 13:59 12.5 mls/hr Q8HR MEGAN Administration Vancomycin/Sodium Chloride 200 mls @ 120 mls/hr 05/22/24 09:15 05/26/24 21:42 Vancomycin/Ns 1 Gm Ivpb IV 05/29/24 09:14 120 mls/hr BID@1000,2200 MEGAN Administration Protocol Potassium Acetate 80 meq/ 2,064 mls @ 70 mls/hr 05/26/24 18:00 12/15/24 18:47 Potassium Phosphate 30 mmol/ IV 05/27/24 17:59 70 mls/hr Magnesium Sulfate 2 gm/ .Q24H MEGAN Administration Multivitamins/Minerals 10 ml/ Amino Acids Acetazolamide Sodium 500 mg/ 50 mls @ 100 mls/hr 05/27/24 11:30 Sodium Chloride IV 05/29/24 21:29 BID MEGAN Insulin Human Regular 0 unit 05/21/24 17:00 05/27/24 07:54 Insulin Hum Regular 1 Unit/0.01 Ml (Per Unit) SC 06/20/24 16:59 1 unit ACHS MEGAN Administration Protocol Levothyroxine Sodium 125 mcg/ 175 mcg 05/24/24 06:00 05/27/24 05:10 Levothyroxine Sodium 50 mcg PO 06/23/24 05:59 Not Given ACBR MEGAN Lidocaine 1 patch 05/21/24 09:21 05/27/24 04:35 Lidocaine 5% 1 Patch TOP 06/20/24 09:20 1 patch UD PRN Administration PAIN Protocol Ondansetron HCl 4 mg 05/19/24 09:48 05/27/24 04:35 Ondansetron Inj 2 Mg/Ml Inj 2 Ml IV 06/18/24 09:47 4 mg Q6HR PRN Administration NAUSEA OR VOMITING Protocol Pharmacy Consult 1 each 05/22/24 09:00 Vancomycin Pharmacy To Dose 1 Each Each IV 06/21/24 08:59 QDAY PRN CONSULT Simethicone 80 mg 05/26/24 11:42 Simethicone 80 Mg Chew PO 06/25/24 11:41 QID PRN GAS Plan 59-year-old female with a past medical history of hypertension, diabetes, hypothyroidism and hyperlipidemia who presented to the ED on 05/14/2024 with abdominal pain, nausea and vomiting that has persisted over the last 2 months. The patient has been admitted for management of intractable nausea and vomiting, starvation ketosis. Patient on imaging was found to have spinal epidural abscess conservative management. #Intractable nausea and vomiting: Secondary to gastroparesis associated with diabetes mellitus Improving significantly Continue with symptomatic treatment MRI brain did not show any significant white matter changes, not consistent with demyelinating disease. MRI of the C-spine and T-spine: Did not show any evidence of demyelination as seen in neuromyelitis optica spectrum disorder. Hold off on the Diamox for few days and see if the symptoms recur, as pseudotumor cerebri is very unlikely. Patient's care discussed with attending physician, Dr David Schafer MD PGY3 Attending Provider Attestation/Addendum I personally have seen and examined the patient at the bedside and I agree with resident's findings, assessment and plan of care. Will restart the Diamox, as she could have atypical pseudotumor cerebri presenting as intractable vomiting without much pressure-like headache vision changes and papilledema. Will consider confirming the diagnosis once the discitis resolves after the antibiotic therapy is over as an outpatient.
[2024-05-27] MEDS: VANCOMYCIN/NS 1 GM IVPB 200 ML IV ×2 (11:56→22:31)
[2024-05-27 12:00] VITALS: BP 126/77; PULSE 91; PULSE 92; RESP 17; TEMP 36.3; O2SAT 99
--- NOTE | 2024-05-27 13:23 | PC.NURSE ---
Spoke to Niyah in pharmacy about timing of IV medication and which medications can be given together. Verified medication compatibility.
[2024-05-27] MEDS: ACETAzolaMIDE SOD 500 MG in SODIUM CHLORIDE 0.9% (P) 50 ML 100 MG IV (14:28)
--- NOTE | 2024-05-27 15:55 | ESPR_ITS ---
<Statement entered by Oumou Denis MD - 06/11/24 09:37> I reviewed above note and agree with findings and plans. I have also personally examined the patient with medicine team and went over assessment and plan with medical team including university intern and resident physician. <Statement entered by Иван Boland MD - 05/27/24 17:18> Patient was seen and examined at bedside today. Patient reported that she wants to eat however she does not have an appetite. We believe that most of her lack of appetite secondary to the TPN will keep monitoring the patient I will start her on oral diet as tolerated. We contacted the neurologist Dr. Hernandez and she recommended that family atypical presentation of normal pressure hydrocephalus for that reason we will continue the patient on acetazolamide twice daily in addition to the by citrate to decrease the acidosis. Patient reported that she started to experience mild amount of vaginal bleeding, however she denied any abdominal pain, urinary tract symptoms, will contact the THEOLOGY TEACHER specialist again for further recommendations. Will continue to monitor closely. - Patient's plan and care discussed with my attending, Dr. Adeel Boland MD Internal Medicine PGY-2 Documentation for date of: 05/27/24 Subjective Subjective Interval history: Patient examined at bedside today. No acute overnight events. Patient reports that she wants to eat, but does not have an appetite believes it is because of the nutrition we are giving her. Says that she does not even crave to drink water or have ice chips at this time. Says that she feels unsteady and has been feeling dizzy. No other complaints at this time Exam Vital Signs Temp Pulse Resp BP Pulse Ox O2 Del Method 97.3 F 92 17 126/77 99 Room Air 05/27/24 12:00 05/27/24 12:00 05/27/24 12:00 05/27/24 12:00 05/27/24 12:00 05/27/24 12:00 Narrative Exam General: AAOx3, NAD, HEENT: Dry mucous membranes, conjunctiva clear, EOMI, PERRLA, Cardiovascular: S1, S2, radial pulses +2 bilat, RRR Pulmonary: CTAB bilat no cough, no wheezing GI: Slight tenderness to light palpitation, no guarding, rigidity, rebound tenderness or distension, bowel sounds present Extremities: No presence of trace or pitting edema in lower extremities bilaterally, dorsalis pedis pulses +2 bilaterally, L upper hand in site of IV erythematous and TTP Neuro: AAOx3, resting tremor in UE bilat Psych: Good judgement, thought and behavior. Cooperative Objective Labs 05/27/24 09:41 05/27/24 09:41 Labs: Laboratory Results - last 24 hr 05/17/24 05/19/24 05/23/24 13:14 17:58 04:55 WBC RBC Hgb Hct MCV MCH MCHC RDW Std Deviation Plt Count Neut % (Auto) Lymph % (Auto) [place] % (Auto) Eos % (Auto) Baso % (Auto) Neut # (Auto) Lymph # (Auto) [place] # (Auto) Eos # (Auto) Baso # (Auto) Immature Gran # (Auto) Absolute Nucleated RBC Immature Gran % Nucleated RBC % Sodium Potassium Chloride Carbon Dioxide Anion Gap BUN Creatinine Estim Creat Clear Calc eGFR BUN/Creatinine Ratio Glucose Calculated Osmolality Calcium Corrected Calcium Phosphorus Magnesium Total Bilirubin AST ALT Alkaline Phosphatase Total Protein Albumin Globulin Albumin/Globulin Ratio Thiamine (Vit B1) Rhys <6 L ADIN Screen POSITIVE A ADIN Titer 1:80 H ADIN Titer 2 TNP ADIN Titer 3 TNP ADIN Pattern ADIN Pattern 2 TNP ADIN Pattern 3 TNP Double Strand DNA Ab 3 Thyroid Peroxidase Ab 779 H 05/27/24 05/27/24 05/27/24 05:28 07:17 09:41 WBC 5.9 5.9 RBC 2.02 L 3.08 L Hgb 8.3 L 7.5 L 9.1 L D Hct 20.1 L* 24.1 L 28.3 L MCV 100 92 MCH 41.1 H 29.5 MCHC 41.3 H 32.2 RDW Std Deviation 76.8 H 66.6 H Plt Count 169 D 220 D Neut % (Auto) 43 41 Lymph % (Auto) 25 31 [place] % (Auto) 22 H 18 H Eos % (Auto) 8 9 Baso % (Auto) 1 1 Neut # (Auto) 2.5 2.4 Lymph # (Auto) 1.5 1.9 [place] # (Auto) 1.3 H 1.1 H Eos # (Auto) 0.5 0.5 Baso # (Auto) 0.1 0.0 Immature Gran # (Auto) 0.09 H 0.04 H Absolute Nucleated RBC 0.02 H 0.02 H Immature Gran % 2 H 1 H Nucleated RBC % 0 0 Sodium Cancelled 139 Potassium Cancelled 3.7 Chloride Cancelled 109 H Carbon Dioxide Cancelled 19.4 L Anion Gap Cancelled 11 BUN Cancelled 7 L Creatinine Cancelled 0.6 Estim Creat Clear Calc Cancelled 108.4 eGFR Cancelled > 60 BUN/Creatinine Ratio Cancelled 12 Glucose Cancelled 153 H Calculated Osmolality Cancelled 278 Calcium Cancelled 8.9 Corrected Calcium Cancelled 9.1 Phosphorus Cancelled 3.0 Magnesium Cancelled 2.2 Total Bilirubin Cancelled 0.4 AST Cancelled 52 H ALT Cancelled 29 Alkaline Phosphatase Cancelled 48 Total Protein Cancelled 6.4 Albumin Cancelled 3.7 D Globulin Cancelled 2.7 Albumin/Globulin Ratio Cancelled 1.4 Thiamine (Vit B1) Rhys ADIN Screen ADIN Titer ADIN Titer 2 ADIN Titer 3 ADIN Pattern ADIN Pattern 2 ADIN Pattern 3 Double Strand DNA Ab Thyroid Peroxidase Ab ABG Interpretation ABG results: 05/14/24 05/15/24 17:25 16:48 VBG pH 7.49 7.39 VBG pCO2 21 L 28 L VBG pO2 35 43 VBG Base Excess -5 L -7 L Quality Measures Quality Measures VTE prophylaxis (Heparin ) Assessment & Plan Assessment Current Active Medications: Generic Name Dose Route Start Last Admin Trade Name Freq PRN Reason Stop Dose Admin Acetaminophen 650 mg 05/15/24 18:27 05/24/24 04:08 Acetaminophen 325 Mg Tablet PO 06/14/24 18:26 650 mg Q4HR PRN Administration Fever >101 or pain 1-3 Citric Acid/Sodium Citrate 30 ml 05/27/24 11:30 05/27/24 11:57 Citric Acid/Sodium Citr 15 Ml Udc (Bicitra) PO 06/26/24 11:29 Not Given BID MEGAN Dextrose 25 ml 05/15/24 05:02 Dextrose 50%-Water Inj 50 Ml Syringe IV 06/14/24 05:01 Q15MIN PRN BG 50-70 responsive npo pt Dextrose 50 ml 05/15/24 05:02 Dextrose 50%-Water Inj 50 Ml Syringe IV 06/14/24 05:01 Q15MIN PRN BG <50 OR BG <70 & pt unresponsive Glucagon 1 mg 05/15/24 05:02 Glucagon Inj 1 Mg Vial IM Q15MIN PRN BG <70, and no IV access Heparin Sodium (Porcine) 5,000 unit 05/15/24 09:00 05/27/24 09:50 Heparin Sod Inj 5000 Unit/Ml Vial SC 05/29/24 08:59 5,000 unit Q12HR MEGAN Administration Promethazine HCl 6.25 mg/ 50.25 mls @ 2.5 mls/min 05/17/24 20:30 05/27/24 13:41 Sodium Chloride IV 06/16/24 20:29 2.5 mls/min Q6HR MEGAN Administration Fat Emulsion-[place] Oil/Soybean Oil 500 mls @ 32 mls/hr 05/21/24 18:00 05/26/24 18:47 Clinopid 20% Iv IV 06/20/24 17:59 32 mls/hr [id number]@1800 MEGAN Administration Piperacillin/Tazobactam/Dextrose 3.375 gm in 50 mls @ 12.5 mls/hr 05/22/24 14:00 05/27/24 14:49 Zosyn IV 05/29/24 13:59 12.5 mls/hr Q8HR MEGAN Administration Vancomycin/Sodium Chloride 200 mls @ 120 mls/hr 05/22/24 09:15 05/27/24 11:56 Vancomycin/Ns 1 Gm Ivpb IV 05/29/24 09:14 120 mls/hr BID@1000,2200 MEGAN Administration Protocol Potassium Acetate 80 meq/ 2,064 mls @ 70 mls/hr 05/26/24 18:00 05/26/24 18:47 Potassium Phosphate 30 mmol/ IV 05/27/24 17:59 70 mls/hr Magnesium Sulfate 2 gm/ .Q24H MEGAN Administration Multivitamins/Minerals 10 ml/ Amino Acids Acetazolamide Sodium 500 mg/ 50 mls @ 100 mls/hr 05/27/24 11:30 05/27/24 14:28 Sodium Chloride IV 05/29/24 21:29 100 mls/hr BID MEGAN Administration Insulin Human Regular 0 unit 05/21/24 17:00 05/27/24 11:56 Insulin Hum Regular 1 Unit/0.01 Ml (Per Unit) SC 06/20/24 16:59 1 unit ACHS MEGAN Administration Protocol Levothyroxine Sodium 125 mcg/ 175 mcg 05/24/24 06:00 05/27/24 05:10 Levothyroxine Sodium 50 mcg PO 06/23/24 05:59 Not Given ACBR MEGAN Lidocaine 1 patch 05/21/24 09:21 05/27/24 04:35 Lidocaine 5% 1 Patch TOP 06/20/24 09:20 1 patch UD PRN Administration PAIN Protocol Ondansetron HCl 4 mg 05/19/24 09:48 05/27/24 04:35 Ondansetron Inj 2 Mg/Ml Inj 2 Ml IV 06/18/24 09:47 4 mg Q6HR PRN Administration NAUSEA OR VOMITING Protocol Pharmacy Consult 1 each 05/22/24 09:00 Vancomycin Pharmacy To Dose 1 Each Each IV 06/21/24 08:59 QDAY PRN CONSULT Simethicone 80 mg 05/26/24 11:42 Simethicone 80 Mg Chew PO 06/25/24 11:41 QID PRN GAS Plan 59-year-old female with a past medical history of hypertension, diabetes, hypothyroidism and hyperlipidemia who presented to the ED on 05/14/2024 with abdominal pain, nausea and vomiting that has persisted over the last 2 months. The patient has been admitted for management of intractable nausea and vomiting, starvation ketosis. Patient on imaging was found to have spinal epidural abscess with multiple attempts to transfer the patient to a nursing care various institutions infiltrative patient and recommend conservative management. #Intractable nausea and vomiting #? atypical pseudotumor cerebri Patient with diplopia/blurry vision and headache raising suspicion for pseudotumor cerebri subsequently started on acetazolamide with improvement Lumbar puncture unable to be done due to spinal epidural abscess Patient currently on PPN and clear liquid diet Spoke to neurology Dr Hernandez, states this may be atypical visitation of the arrhythmia , recommends to continue Diamox see patient improves, we cannot do LP at this time because of epidural abscess. Plan: ? Diamox 500 mg twice daily ?Citric acid and bicarb liquid -Zofran as needed -Reglan as needed -Encourage p.o. intake as tolerated -Neurology on case appreciate recommendations -GI on the case appreciate recommendations #Epidural abscess #Osteomyelitis/discitis Found on lumbar MRI Discussed case with multiple institutions rejected the case recommended conservative management Will continue trying to send the patient for neurosurgical evaluation Currently, patient denies any lower extremity weakness, saddle anesthesia and denies any fecal or urinary incontinence ID recommends for pt to have drainage of abscess at some point Will call off on discharge and continue with abx treatment at this time Will de-escalate antibiotic tomorrow, with ID recommendations Plan: -On IV vancomycin and Zosyn -ID consulted, appreciate recommendations -Continue to pursue transfer #Metabolic acidosis Likely secondary to acetazolamide Current bicarb ~20 Plan: ? Continue with Diamox, will add citric acid with sodium bicarb #Electrolyte abnormalities #Hypokalemia secondary to #GI losses #Diarrhea Plan: ?Replete as needed ?Treat as above with antiemetics ?As above #Type 2 diabetes mellitus A1c 6.8 -on insulin sliding scale #Hypothyroidism Patient noted to have TSH of 75 however T4 at 0.76 ?Synthroid 175 mcg p.o. #Health Maintenance Disposition: Medsurg DVT prophylaxis: Heparin GI prophylaxis: Simethicone Diet: Clear liquid diet and PPN CODE STATUS: Full Patient seen and care discussed with my senior resident, Dr. Boland , and my attending physician, Dr. Adeel Solorio, PGY-1
[2024-05-27 16:00] VITALS: BP 119/68; PULSE 90; PULSE 91; RESP 16; TEMP 36.2; O2SAT 98
[2024-05-27] MEDS: MULTIVITAMIN IV (18:13)
[2024-05-27] MEDS: [UNRECOGNIZED DRUG - OTHER] IV (18:13)
[2024-05-27] MEDS: POTASSIUM PHOS IV (18:13)
[2024-05-27] MEDS: POTASSIUM ACET IV (18:13)
--- NOTE | 2024-05-27 18:31 | PD.IMPROG ---
Documentation for date of: 05/27/24 Subjective Subjective Interval history: On Diamox and bicarb and also TPN Exam Vital Signs Temp Pulse Resp BP Pulse Ox O2 Del Method 97.2 F 91 16 119/68 98 Room Air 05/27/24 16:00 05/27/24 16:00 05/27/24 16:00 05/27/24 16:00 05/27/24 16:00 05/27/24 16:00 Constitutional Comments: Chronically ill-appearing Routine Respiratory Exam Comments: Normal to auscultation Routine Abdominal Exam Comments: Soft nontender Objective Labs 05/27/24 09:41 05/27/24 09:41 Labs: Laboratory Results - last 24 hr 05/17/24 05/19/24 05/23/24 13:14 17:58 04:55 WBC RBC Hgb Hct MCV MCH MCHC RDW Std Deviation Plt Count Neut % (Auto) Lymph % (Auto) [place] % (Auto) Eos % (Auto) Baso % (Auto) Neut # (Auto) Lymph # (Auto) [place] # (Auto) Eos # (Auto) Baso # (Auto) Immature Gran # (Auto) Absolute Nucleated RBC Immature Gran % Nucleated RBC % Sodium Potassium Chloride Carbon Dioxide Anion Gap BUN Creatinine Estim Creat Clear Calc eGFR BUN/Creatinine Ratio Glucose Calculated Osmolality Calcium Corrected Calcium Phosphorus Magnesium Total Bilirubin AST ALT Alkaline Phosphatase Total Protein Albumin Globulin Albumin/Globulin Ratio Thiamine (Vit B1) Rhys <6 L ADIN Screen POSITIVE A ADIN Titer 1:80 H ADIN Titer 2 TNP ADIN Titer 3 TNP ADIN Pattern ADIN Pattern 2 TNP ADIN Pattern 3 TNP Double Strand DNA Ab 3 Thyroid Peroxidase Ab 779 H 05/27/24 05/27/24 05/27/24 05:28 07:17 09:41 WBC 5.9 5.9 RBC 2.02 L 3.08 L Hgb 8.3 L 7.5 L 9.1 L D Hct 20.1 L* 24.1 L 28.3 L MCV 100 92 MCH 41.1 H 29.5 MCHC 41.3 H 32.2 RDW Std Deviation 76.8 H 66.6 H Plt Count 169 D 220 D Neut % (Auto) 43 41 Lymph % (Auto) 25 31 [place] % (Auto) 22 H 18 H Eos % (Auto) 8 9 Baso % (Auto) 1 1 Neut # (Auto) 2.5 2.4 Lymph # (Auto) 1.5 1.9 [place] # (Auto) 1.3 H 1.1 H Eos # (Auto) 0.5 0.5 Baso # (Auto) 0.1 0.0 Immature Gran # (Auto) 0.09 H 0.04 H Absolute Nucleated RBC 0.02 H 0.02 H Immature Gran % 2 H 1 H Nucleated RBC % 0 0 Sodium Cancelled 139 Potassium Cancelled 3.7 Chloride Cancelled 109 H Carbon Dioxide Cancelled 19.4 L Anion Gap Cancelled 11 BUN Cancelled 7 L Creatinine Cancelled 0.6 Estim Creat Clear Calc Cancelled 108.4 eGFR Cancelled > 60 BUN/Creatinine Ratio Cancelled 12 Glucose Cancelled 153 H Calculated Osmolality Cancelled 278 Calcium Cancelled 8.9 Corrected Calcium Cancelled 9.1 Phosphorus Cancelled 3.0 Magnesium Cancelled 2.2 Total Bilirubin Cancelled 0.4 AST Cancelled 52 H ALT Cancelled 29 Alkaline Phosphatase Cancelled 48 Total Protein Cancelled 6.4 Albumin Cancelled 3.7 D Globulin Cancelled 2.7 Albumin/Globulin Ratio Cancelled 1.4 Thiamine (Vit B1) Rhys ADIN Screen ADIN Titer ADIN Titer 2 ADIN Titer 3 ADIN Pattern ADIN Pattern 2 ADIN Pattern 3 Double Strand DNA Ab Thyroid Peroxidase Ab Impressions Impression: # Epidural abscess # Nausea vomiting as per neurology questionable normal pressure hydrocephalus on Diamox Advance diet as tolerated ABG Interpretation ABG results: 05/14/24 05/15/24 17:25 16:48 VBG pH 7.49 7.39 VBG pCO2 21 L 28 L VBG pO2 35 43 VBG Base Excess -5 L -7 L Assessment & Plan A&P Narrative mild anemia presumptive gastroparesis with controlled dm dermoid tumor hypothyroid htn hld possible epidural abscess with neg cx on empiric vanco/zosyn ideally, this is drained or pt is referred for such so that if the referral is denied, please document any rationale for no intervention so we all can know why that is the case ok to change zosyn to rocephin and vanco to po doxy and see if other meds can be changed to po too. if empiric rx is to be the goal, then use agents that are supported by micro or are easy to use. she likely needs dermoid addressed at some point as well. will not see again unless requested as inpt current abx are more toxic and require more daily doses then alternative empiric rx. favor rocephin 2 gm iv daily and po doxy 100 bid thru 07/09 with weekly cbc, renal panel, esr and line removal at end of rx if process remains, please re visit drainage at end of iv run and extend abx will see prn. f/u with dr Reardon on the tpn. I generally do not provide that rx. Time Spent With Patient Time: Total time spent is greater than 50% in coordination of care (as documented) at patient's floor/unit and/or counseling patient:
[2024-05-27 20:00] VITALS: BP 120/72; PULSE 90; PULSE 97; RESP 24; TEMP 37.1; O2SAT 98
[2024-05-28] VITALS: BP 133/70; PULSE 102; PULSE 93; RESP 20; TEMP 36.6; O2SAT 98
[2024-05-28] MEDS: ACETAzolaMIDE SOD 500 MG in SODIUM CHLORIDE 0.9% (P) 50 ML 100 MG IV ×3 (00:30→12:28)
[2024-05-28] MEDS: PROMETHAZINE INJ 6.25 MG in SODIUM CHLORIDE 0.9% 50 ML 2.5 MG IV ×4 (01:07→17:22)
[2024-05-28] MEDS: PIPER/TAZO 3.375 GM 3.375 GM/50 ML BAG IV ×2 (01:35→07:22)
[2024-05-28 04:00] VITALS: BP 120/81; PULSE 91; PULSE 93; RESP 20; TEMP 36.6; O2SAT 98
[2024-05-28 05:21] LABS: Basophils % (Auto) 1 % (0-2.5); Eosinophils # (Auto) 0.4 Thou/mm3 (0.0-0.5); Eosinophils % (Auto) 7 % (0-10); Hematocrit 25.1 % (36.0-46.0); Immature Granulocytes % (Auto) 1 % (0-0); Immature Granulocytes Auto 0.04 Thou/mm3 (0.00-0.00); Lymphocytes # (Auto) 1.3 Thou/mm3 (1.0-4.8); Lymphocytes % (Auto) 22 % (10-50); Mean Corpuscular HGB Conc 31.1 g/dl (31.0-37.0); Mean Corpuscular Hemoglobin 29.3 pg (25.0-35.0); Mean Corpuscular Volume 94 fL (80-100); Monocytes # (Auto) 1.7 Thou/mm3 (0.0-0.8); Monocytes % (Auto) 27 % (0-12); Neutrophils # (Auto) 2.6 Thou/mm3 (1.8-7.7); Neutrophils % (Auto) 43 % (37-80); Nucleated Red Blood Cell % 0 /100 WBC (0); Platelet Count 189 Thou/mm3 (140-440); RDW Standard Deviation 70.1 fL (36.4-46.3); Red Blood Count 2.66 Miln/mm3 (4.00-5.20); White Blood Count 6.2 Thou/mm3 (3.6-11.0)
[2024-05-28 05:22] LABS: Hemoglobin 7.8 g/dL (12.0-16.0)
[2024-05-28] MEDS: LEVOTHYROXINE SODIUM 125 MCG, LEVOTHYROXINE SODIUM 50 MCG 175 MCG PO (05:48)
[2024-05-28 06:09] LABS: Alanine Aminotransferase 23 U/L (10-49); Albumin, Serum 3.2 gm/dL (3.5-5.0); Albumin/Globulin Ratio 1.3 (1.2-2.2); Alkaline Phosphatase 40 U/L (46-116); Anion Gap 10 (7-16); Aspartate Amino Transferase 26 U/L (0-34); BUN/Creatinine Ratio 13 Ratio (12-20); Bilirubin,Total 0.4 mg/dL (0.3-1.2); Blood Urea Nitrogen 9 mg/dL (9-23); Calcium 8.9 mg/dL (8.3-10.6); Calcium (Corrected) 9.5 mg/dL (8.5-10.1); Carbon Dioxide 18.7 mMol/L (20.0-31.0); Chloride 116 mMol/L (98-107); Creatinine (Component) 0.7 mg/dL (0.6-1.3); Estimated Creatinine Clearance 92.9 mL/min (>60); Globulin 2.4 gm/dL (2.3-3.5); Glucose 146 mg/dL (74-106); Magnesium 2.2 mg/dL (1.6-2.6); Osmolality,Calculated 290 (275-295); Phosphorous 4.3 mg/dL (2.4-5.1); Potassium 3.5 mMol/L (3.4-5.1); Sodium 145 mMol/L (136-145); Total Protein 5.6 gm/dL (5.7-8.2); Triglycerides 165 mg/dL (30-150); eGFR > 60 See Note
[2024-05-28] MEDS: INSULIN HUM REGULAR 1 UNIT/0.01 ML (PER UNIT) SC ×3 (07:51→17:10)
[2024-05-28 08:00] VITALS: BP 105/62; PULSE 87; PULSE 95; RESP 18; TEMP 36.4; O2SAT 99
[2024-05-28] MEDS: HEPARIN SOD INJ 5000 UNIT/ML VIAL SC ×2 (08:33→21:39)
[2024-05-28 09:00] VITALS: BMI 32.5
[2024-05-28 09:16] LABS: Vancomycin,Trough 19.8 mcg/mL (5.0-10.0)
--- NOTE | 2024-05-28 09:57 | ESPR_ITS ---
<Statement entered by Oumou Denis MD - 06/11/24 09:36> I reviewed above note and agree with findings and plans. I have also personally examined the patient with medicine team and went over assessment and plan with medical team including summer intern and resident physician. <Statement entered by Иван Boland MD - 05/28/24 16:49> Patient was seen and examined at bedside. Patient reported that she has not had any vomiting for the past 2 to 3 days, however she reported that she had some episodes of nausea in the morning or at night. She reported that she does not feel hungry and she believes that this caused by the TPN for that reason we will call the pharmacy to decrease the dose of the TPN to 75% and start the patient on oral feedings trials. We contacted the neurologist Dr. Hernandez she thinks that could be atypical presentation of pseudotumor cerebri for that reason we will increase the dose of acetazolamide from 500 mg twice daily to 1 g twice daily with close monitoring of the acid-base balance. Will continue with this dose for 1 day and monitor response. At the patient continued to improve we will discharge the patient in the next 2 to 3 days to follow-up in outpatient settings for management of pseudotumor cerebri. If the patient's condition did not improve we will likely pursue the workup for adrenal insufficiency. We curbside the rigging loft repairer Dr. Scruggs and he recommended to repeat beta-hCG quantitative level. Dr Mcdaniels the infectious specialist he recommended that we should switch the patient for Rocephin to doxycycline for her lumbar osteomyelitis however because the doxycycline one of the risk factors for pseudotumor supply we will switch the patient to Rocephin and vancomycin instead. - Patient's plan and care discussed with my attending, Dr. Adeel Boland MD Internal Medicine PGY-2 Documentation for date of: 05/28/24 Subjective Subjective Interval history: Patient examined at bedside today. No acute overnight events. Says that her nausea and vomiting has been improving, has not vomited in the past 2 days, however still nauseous at times. Says that she has not been experiencing any bleeding. Says that she wants to eat but does not have hunger/appetite. Says that she has been getting up moving around as much as she can. Exam Vital Signs Temp Pulse Resp BP Pulse Ox O2 Del Method 97.6 F 87 18 105/62 99 Room Air 05/28/24 08:00 05/28/24 08:00 05/28/24 08:00 05/28/24 08:00 05/28/24 08:00 05/28/24 08:00 Narrative Exam General: AAOx3, NAD, HEENT: Dry mucous membranes, conjunctiva clear, EOMI, PERRLA, Cardiovascular: S1, S2, radial pulses +2 bilat, RRR Pulmonary: CTAB bilat no cough, no wheezing GI: Slight tenderness to light palpitation, no guarding, rigidity, rebound tenderness or distension, bowel sounds present Extremities: No presence of trace or pitting edema in lower extremities bilaterally, dorsalis pedis pulses +2 bilaterally, L upper hand in site of IV erythematous and TTP Neuro: AAOx3, resting tremor in UE bilat Psych: Good judgement, thought and behavior. Cooperative Objective Labs 05/28/24 05:05 05/28/24 05:05 Labs: Laboratory Results - last 24 hr 05/27/24 05/28/24 05/28/24 09:41 05:05 08:34 WBC 5.9 6.2 RBC 3.08 L 2.66 L Hgb 9.1 L D 7.8 L Hct 28.3 L 25.1 L MCV 92 94 MCH 29.5 29.3 MCHC 32.2 31.1 RDW Std Deviation 66.6 H 70.1 H Plt Count 220 D 189 D Neut % (Auto) 41 43 Lymph % (Auto) 31 22 [place] % (Auto) 18 H 27 H Eos % (Auto) 9 7 Baso % (Auto) 1 1 Neut # (Auto) 2.4 2.6 Lymph # (Auto) 1.9 1.3 [place] # (Auto) 1.1 H 1.7 H Eos # (Auto) 0.5 0.4 Baso # (Auto) 0.0 0.0 Immature Gran # (Auto) 0.04 H 0.04 H Absolute Nucleated RBC 0.02 H 0.00 Immature Gran % 1 H 1 H Nucleated RBC % 0 0 Sodium 139 145 Potassium 3.7 3.5 Chloride 109 H 116 H Carbon Dioxide 19.4 L 18.7 L Anion Gap 11 10 BUN 7 L 9 Creatinine 0.6 0.7 Estim Creat Clear Calc 108.4 92.9 eGFR > 60 > 60 BUN/Creatinine Ratio 12 13 Glucose 153 H 146 H Calculated Osmolality 278 290 Calcium 8.9 8.9 Corrected Calcium 9.1 9.5 Phosphorus 3.0 4.3 Magnesium 2.2 2.2 Total Bilirubin 0.4 0.4 AST 52 H 26 ALT 29 23 Alkaline Phosphatase 48 40 L Total Protein 6.4 5.6 L Albumin 3.7 D 3.2 L D Globulin 2.7 2.4 Albumin/Globulin Ratio 1.4 1.3 Triglycerides 165 H Vancomycin Trough 19.8 H ABG Interpretation ABG results: 05/14/24 05/15/24 17:25 16:48 VBG pH 7.49 7.39 VBG pCO2 21 L 28 L VBG pO2 35 43 VBG Base Excess -5 L -7 L Quality Measures Quality Measures VTE prophylaxis (Heparin ) Assessment & Plan Assessment Current Active Medications: Generic Name Dose Route Start Last Admin Trade Name Freq PRN Reason Stop Dose Admin Acetaminophen 650 mg 05/15/24 18:27 05/24/24 04:08 Acetaminophen 325 Mg Tablet PO 06/14/24 18:26 650 mg Q4HR PRN Administration Fever >101 or pain 1-3 Citric Acid/Sodium Citrate 30 ml 05/27/24 11:30 05/28/24 08:34 Citric Acid/Sodium Citr 15 Ml Udc (Bicitra) PO 06/26/24 11:29 Not Given BID MEGAN Dextrose 25 ml 05/15/24 05:02 Dextrose 50%-Water Inj 50 Ml Syringe IV 06/14/24 05:01 Q15MIN PRN BG 50-70 responsive npo pt Dextrose 50 ml 05/15/24 05:02 Dextrose 50%-Water Inj 50 Ml Syringe IV 06/14/24 05:01 Q15MIN PRN BG <50 OR BG <70 & pt unresponsive Glucagon 1 mg 05/15/24 05:02 Glucagon Inj 1 Mg Vial IM Q15MIN PRN BG <70, and no IV access Heparin Sodium (Porcine) 5,000 unit 05/15/24 09:00 05/28/24 08:33 Heparin Sod Inj 5000 Unit/Ml Vial SC 05/29/24 08:59 5,000 unit Q12HR MEGAN Administration Promethazine HCl 6.25 mg/ 50.25 mls @ 2.5 mls/min 05/17/24 20:30 12/17/24 06:33 Sodium Chloride IV 06/16/24 20:29 2.5 mls/min Q6HR MEGAN Administration Fat Emulsion-[place] Oil/Soybean Oil 500 mls @ 32 mls/hr 05/21/24 18:00 05/26/24 18:47 Clinopid 20% Iv IV 06/20/24 17:59 32 mls/hr [id number]@1800 MEGAN Administration Piperacillin/Tazobactam/Dextrose 3.375 gm in 50 mls @ 12.5 mls/hr 05/22/24 14:00 05/28/24 07:22 Zosyn IV 05/29/24 13:59 12.5 mls/hr Q8HR MEGAN Administration Acetazolamide Sodium 500 mg/ 50 mls @ 100 mls/hr 05/27/24 11:30 05/28/24 08:31 Sodium Chloride IV 05/29/24 21:29 100 mls/hr BID MEGAN Administration Potassium Acetate 90 meq/ 2,063 mls @ 70 mls/hr 05/27/24 18:00 05/27/24 18:13 Potassium Phosphate 24 mmol/ IV 05/28/24 17:59 70 mls/hr Multivitamins/Minerals 10 ml/ QDAY@1800 MEGAN Administration Amino Acids Protocol Vancomycin/Sodium Chloride 750 mg in 150 mls @ 120 mls/hr 05/28/24 22:00 Vancomycin/Ns 750 Mg Ivpb IV 06/04/24 21:59 BID@1000,2200 MEGAN Insulin Human Regular 0 unit 05/21/24 17:00 05/28/24 07:51 Insulin Hum Regular 1 Unit/0.01 Ml (Per Unit) SC 06/20/24 16:59 1 unit ACHS MEGAN Administration Protocol Levothyroxine Sodium 125 mcg/ 175 mcg 05/24/24 06:00 05/28/24 05:48 Levothyroxine Sodium 50 mcg PO 06/23/24 05:59 175 mcg ACBR MEGAN Administration Lidocaine 1 patch 05/21/24 09:21 05/27/24 04:35 Lidocaine 5% 1 Patch TOP 06/20/24 09:20 1 patch UD PRN Administration PAIN Protocol Ondansetron HCl 4 mg 05/19/24 09:48 05/27/24 04:35 Ondansetron Inj 2 Mg/Ml Inj 2 Ml IV 06/18/24 09:47 4 mg Q6HR PRN Administration NAUSEA OR VOMITING Protocol Pharmacy Consult 1 each 05/22/24 09:00 Vancomycin Pharmacy To Dose 1 Each Each IV 06/21/24 08:59 QDAY PRN CONSULT Simethicone 80 mg 05/26/24 11:42 Simethicone 80 Mg Chew PO 06/25/24 11:41 QID PRN GAS Plan 59-year-old female with a past medical history of hypertension, diabetes, hypothyroidism and hyperlipidemia who presented to the ED on 05/14/2024 with abdominal pain, nausea and vomiting that has persisted over the last 2 months. The patient has been admitted for management of intractable nausea and vomiting, starvation ketosis. Patient on imaging was found to have spinal epidural abscess with multiple attempts to transfer the patient to a nursing care various institutions infiltrative patient and recommend conservative management. #Intractable nausea and vomiting #? atypical pseudotumor cerebri Patient with diplopia/blurry vision and headache raising suspicion for pseudotumor cerebri subsequently started on acetazolamide with improvement Lumbar puncture unable to be done due to spinal epidural abscess Patient currently on PPN and clear liquid diet Spoke to neurology Dr Hernandez, states this may be atypical visitation of the arrhythmia , recommends to continue Diamox see patient improves, we cannot do LP at this time because of epidural abscess. Will continue with Diamox to see if patient's symptoms improve, if improved, patient likely has pseudotumor cerebri Plan: ?Increased Diamox to 1000 mg twice daily ?Citric acid and bicarb liquid -Zofran as needed -Reglan as needed -Encourage p.o. intake as tolerated -Neurology on case appreciate recommendations -GI on the case appreciate recommendations #Epidural abscess #Osteomyelitis/discitis Found on lumbar MRI Discussed case with multiple institutions rejected the case recommended conservative management Will continue trying to send the patient for neurosurgical evaluation Currently, patient denies any lower extremity weakness, saddle anesthesia and denies any fecal or urinary incontinence ID recommends for pt to have drainage of abscess at some point Will call off on discharge and continue with abx treatment at this time Will de-escalate antibiotic tomorrow, with ID recommendations Plan: -On IV vancomycin and Zosyn -ID consulted, appreciate recommendations -Continue to pursue transfer #Metabolic acidosis Likely secondary to acetazolamide Current bicarb ~19 Plan: ? Continue with Diamox, continue citric acid with sodium bicarb #Electrolyte abnormalities #Hypokalemia secondary to #GI losses #Diarrhea Plan: ?Replete as needed ?Treat as above with antiemetics ?As above #Type 2 diabetes mellitus A1c 6.8 -on insulin sliding scale #Hypothyroidism Patient noted to have TSH of 75 however T4 at 0.76 ?Synthroid 175 mcg p.o. #Health Maintenance Disposition: Medsurg DVT prophylaxis: Heparin GI prophylaxis: Simethicone Diet: Clear liquid diet and PPN CODE STATUS: Full Patient seen and care discussed with my senior resident, Dr. Boland , and my attending physician, Dr. Adeel Solorio, PGY-1
--- NOTE | 2024-05-28 11:09 | PD.RESPRO ---
Documentation for date of: 05/28/24 Subjective Subjective Interval history: Patient was examined bedside this morning , will continue Diamox bid for now for possible atypical pseudo tumor cerebri, untill her sepsis resolved and she is stable to to LP , where we can see opening pressure . Dr Rock momin decide when to hold her diamox . Continue current management. Exam Vital Signs Temp Pulse Resp BP Pulse Ox O2 Del Method 97.6 F 87 18 105/62 99 Room Air 05/28/24 08:00 05/28/24 08:00 05/28/24 08:00 05/28/24 08:00 05/28/24 08:00 05/28/24 08:00 Narrative Exam General: AAOx3, NAD, HEENT: Dry mucous membranes, conjunctiva clear, EOMI, PERRLA, Cardiovascular: S1, S2, radial pulses +2 bilat, RRR Pulmonary: CTAB bilat no cough, no wheezing GI: Slight tenderness to light palpitation, no guarding, rigidity, rebound tenderness or distension, bowel sounds present Extremities: No presence of trace or pitting edema in lower extremities bilaterally, dorsalis pedis pulses +2 bilaterally, L upper hand in site of IV erythematous and TTP Neuro: AAOx3, resting tremor in UE bilat Psych: Good judgement, thought and behavior. Cooperative Objective Labs 05/28/24 05:05 05/28/24 05:05 Labs: Laboratory Results - last 24 hr 05/28/24 05/28/24 05:05 08:34 WBC 6.2 RBC 2.66 L Hgb 7.8 L Hct 25.1 L MCV 94 MCH 29.3 MCHC 31.1 RDW Std Deviation 70.1 H Plt Count 189 D Neut % (Auto) 43 Lymph % (Auto) 22 [place] % (Auto) 27 H Eos % (Auto) 7 Baso % (Auto) 1 Neut # (Auto) 2.6 Lymph # (Auto) 1.3 [place] # (Auto) 1.7 H Eos # (Auto) 0.4 Baso # (Auto) 0.0 Immature Gran # (Auto) 0.04 H Absolute Nucleated RBC 0.00 Immature Gran % 1 H Nucleated RBC % 0 Sodium 145 Potassium 3.5 Chloride 116 H Carbon Dioxide 18.7 L Anion Gap 10 BUN 9 Creatinine 0.7 Estim Creat Clear Calc 92.9 eGFR > 60 BUN/Creatinine Ratio 13 Glucose 146 H Calculated Osmolality 290 Calcium 8.9 Corrected Calcium 9.5 Phosphorus 4.3 Magnesium 2.2 Total Bilirubin 0.4 AST 26 ALT 23 Alkaline Phosphatase 40 L Total Protein 5.6 L Albumin 3.2 L D Globulin 2.4 Albumin/Globulin Ratio 1.3 Triglycerides 165 H Vancomycin Trough 19.8 H ABG Interpretation ABG results: 05/14/24 05/15/24 17:25 16:48 VBG pH 7.49 7.39 VBG pCO2 21 L 28 L VBG pO2 35 43 VBG Base Excess -5 L -7 L Quality Measures Quality Measures VTE prophylaxis (Heparin ) Assessment & Plan Assessment Current Active Medications: Generic Name Dose Route Start Last Admin Trade Name Freq PRN Reason Stop Dose Admin Acetaminophen 650 mg 05/15/24 18:27 05/24/24 04:08 Acetaminophen 325 Mg Tablet PO 06/14/24 18:26 650 mg Q4HR PRN Administration Fever >101 or pain 1-3 Citric Acid/Sodium Citrate 30 ml 05/27/24 11:30 05/28/24 08:34 Citric Acid/Sodium Citr 15 Ml Udc (Bicitra) PO 06/26/24 11:29 Not Given BID MEGAN Dextrose 25 ml 05/15/24 05:02 Dextrose 50%-Water Inj 50 Ml Syringe IV 06/14/24 05:01 Q15MIN PRN BG 50-70 responsive npo pt Dextrose 50 ml 05/15/24 05:02 Dextrose 50%-Water Inj 50 Ml Syringe IV 06/14/24 05:01 Q15MIN PRN BG <50 OR BG <70 & pt unresponsive Glucagon 1 mg 05/15/24 05:02 Glucagon Inj 1 Mg Vial IM Q15MIN PRN BG <70, and no IV access Heparin Sodium (Porcine) 5,000 unit 05/15/24 09:00 05/28/24 08:33 Heparin Sod Inj 5000 Unit/Ml Vial SC 05/29/24 08:59 5,000 unit Q12HR MEGAN Administration Promethazine HCl 6.25 mg/ 50.25 mls @ 2.5 mls/min 05/17/24 20:30 05/28/24 06:33 Sodium Chloride IV 06/16/24 20:29 2.5 mls/min Q6HR MEGAN Administration Fat Emulsion-[place] Oil/Soybean Oil 500 mls @ 32 mls/hr 05/21/24 18:00 05/26/24 18:47 Clinopid 20% Iv IV 06/20/24 17:59 32 mls/hr SuTuTh@1800 MEGAN Administration Acetazolamide Sodium 500 mg/ 50 mls @ 100 mls/hr 05/27/24 11:30 05/28/24 08:31 Sodium Chloride IV 05/28/24 21:00 100 mls/hr BID MEGAN Administration Potassium Acetate 90 meq/ 2,063 mls @ 70 mls/hr 05/27/24 18:00 05/27/24 18:13 Potassium Phosphate 24 mmol/ IV 05/28/24 17:59 70 mls/hr Multivitamins/Minerals 10 ml/ QDAY@1800 MEGAN Administration Amino Acids Protocol Vancomycin/Sodium Chloride 750 mg in 150 mls @ 120 mls/hr 05/28/24 22:00 Vancomycin/Ns 750 Mg Ivpb IV 06/04/24 21:59 BID@1000,2200 MEGAN Ceftriaxone Sodium 2 gm/ 50 mls @ 100 mls/hr 05/28/24 21:00 Sodium Chloride IV 06/04/24 20:59 Q12HR MEGAN Insulin Human Regular 0 unit 05/21/24 17:00 05/28/24 07:51 Insulin Hum Regular 1 Unit/0.01 Ml (Per Unit) SC 06/20/24 16:59 1 unit ACHS MEGAN Administration Protocol Levothyroxine Sodium 125 mcg/ 175 mcg 05/24/24 06:00 05/28/24 05:48 Levothyroxine Sodium 50 mcg PO 06/23/24 05:59 175 mcg ACBR MEGAN Administration Lidocaine 1 patch 05/21/24 09:21 05/27/24 04:35 Lidocaine 5% 1 Patch TOP 06/20/24 09:20 1 patch UD PRN Administration PAIN Protocol Ondansetron HCl 4 mg 05/19/24 09:48 05/27/24 04:35 Ondansetron Inj 2 Mg/Ml Inj 2 Ml IV 06/18/24 09:47 4 mg Q6HR PRN Administration NAUSEA OR VOMITING Protocol Pharmacy Consult 1 each 05/22/24 09:00 Vancomycin Pharmacy To Dose 1 Each Each IV 06/21/24 08:59 QDAY PRN CONSULT Simethicone 80 mg 05/26/24 11:42 Simethicone 80 Mg Chew PO 06/25/24 11:41 QID PRN GAS Plan 59-year-old female with a past medical history of hypertension, diabetes, hypothyroidism and hyperlipidemia who presented to the ED on 05/14/2024 with abdominal pain, nausea and vomiting that has persisted over the last 2 months. The patient has been admitted for management of intractable nausea and vomiting, starvation ketosis. Patient on imaging was found to have spinal epidural abscess conservative management. 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 -MRI of the C-spine and T-spine: Did not show any evidence of demyelination as seen in neuromyelitis optica spectrum disorder. -will continue Diamox bid for now for possible atypical pseudo tumor cerebri, untill her sepsis resolved and she is stable to to LP , where we can see opening pressure . Dr Rock momin decide when to hold her diamox . Patient's care discussed with attending physician, Dr David Vasquez MD PGY3 Attending Provider Attestation/Addendum I personally have seen and examined the patient at the bedside and I agree with resident's findings, assessment and plan of care. Continue with the Diamox 250 mg twice daily for atypical pseudotumor cerebri. Will consider doing lumbar puncture for measuring the opening pressure as an outpatient when the infectious process resolves and they will lumbar spine.
[2024-05-28 12:00] VITALS: BP 94/52; PULSE 89; PULSE 92; RESP 17; TEMP 36.6; O2SAT 98
[2024-05-28] MEDS: ACETAMINOPHEN 325 MG TABLET 650 MG PO (14:02)
--- NOTE | 2024-05-28 15:34 | PC.SS ---
Addendum entered by Aminah Rodrigues 05/28/24 16:23: Pt is still require IV antibiotic 1 X day until Jul 09, 2023. Original Note: SS met with pt to provide her with verbal choices for SNF. [facility], [facility], and [facility] [place] [facility] from [facility]. SS spoke to Alondra at [facility] (patient's preferred SNF) who explained they are unable to accept pt due to requiring IV antibiotic. Pt is aware and her choice is [facility]. SS has spoke to Arlene at [facility] and they will start insurance authorization. SS has sent [facility] using [facility].
[2024-05-28 16:00] VITALS: BP 119/74; PULSE 86; PULSE 90; RESP 17; TEMP 36.6; O2SAT 99
[2024-05-28] MEDS: FAT EMUL/OLIVE/SOY/PHOS 20% IV 500 ML 32 ML IV (17:22)
[2024-05-28] MEDS: MULTIVITAMIN IV (17:22)
[2024-05-28] MEDS: [UNRECOGNIZED DRUG - OTHER] IV (17:22)
[2024-05-28] MEDS: POTASSIUM ACET IV (17:22)
[2024-05-28] MEDS: AMINO ACID IV (17:22)
[2024-05-28 20:00] VITALS: BP 119/67; PULSE 94; PULSE 96; RESP 18; TEMP 36.4; O2SAT 99
[2024-05-28] MEDS: SODIUM CHLORIDE 0.9% IV (20:38)
[2024-05-28] MEDS: [UNRECOGNIZED DRUG - OTHER] IV (20:38)
--- NOTE | 2024-05-28 21:33 | ESPR_ITS ---
Documentation for date of: 05/28/24 Subjective Subjective Interval history: Patient does not feel hungry has no appetite Recommendation is to cut back the rate of the TPN and try to encourage p.o. nutrition Neurologist working with the differential diagnosis of pseudotumor cerebri Exam Vital Signs Temp Pulse Resp BP Pulse Ox O2 Del Method 98 F 90 17 119/74 99 Room Air 05/28/24 16:00 05/28/24 16:00 05/28/24 16:00 05/28/24 16:00 05/28/24 16:00 05/28/24 16:00 Objective Labs 05/28/24 05:05 05/28/24 05:05 Labs: Laboratory Results - last 24 hr 05/28/24 05/28/24 05:05 08:34 WBC 6.2 RBC 2.66 L Hgb 7.8 L Hct 25.1 L MCV 94 MCH 29.3 MCHC 31.1 RDW Std Deviation 70.1 H Plt Count 189 D Neut % (Auto) 43 Lymph % (Auto) 22 [place] % (Auto) 27 H Eos % (Auto) 7 Baso % (Auto) 1 Neut # (Auto) 2.6 Lymph # (Auto) 1.3 [place] # (Auto) 1.7 H Eos # (Auto) 0.4 Baso # (Auto) 0.0 Immature Gran # (Auto) 0.04 H Absolute Nucleated RBC 0.00 Immature Gran % 1 H Nucleated RBC % 0 Sodium 145 Potassium 3.5 Chloride 116 H Carbon Dioxide 18.7 L Anion Gap 10 BUN 9 Creatinine 0.7 Estim Creat Clear Calc 92.9 eGFR > 60 BUN/Creatinine Ratio 13 Glucose 146 H Calculated Osmolality 290 Calcium 8.9 Corrected Calcium 9.5 Phosphorus 4.3 Magnesium 2.2 Total Bilirubin 0.4 AST 26 ALT 23 Alkaline Phosphatase 40 L Total Protein 5.6 L Albumin 3.2 L D Globulin 2.4 Albumin/Globulin Ratio 1.3 Triglycerides 165 H Vancomycin Trough 19.8 H Impressions Impression: # Nausea vomiting # Epidural abscess and osteomyelitis Recommend decrease the rate of TPN and encouraging p.o. intake ABG Interpretation ABG results: 05/14/24 05/15/24 17:25 16:48 VBG pH 7.49 7.39 VBG pCO2 21 L 28 L VBG pO2 35 43 VBG Base Excess -5 L -7 L Assessment & Plan A&P Narrative mild anemia presumptive gastroparesis with controlled dm dermoid tumor hypothyroid htn hld possible epidural abscess with neg cx on empiric vanco/zosyn ideally, this is drained or pt is referred for such so that if the referral is denied, please document any rationale for no intervention so we all can know why that is the case ok to change zosyn to rocephin and vanco to po doxy and see if other meds can be changed to po too. if empiric rx is to be the goal, then use agents that are supported by micro or are easy to use. she likely needs dermoid addressed at some point as well. will not see again unless requested as inpt current abx are more toxic and require more daily doses then alternative empiric rx. favor rocephin 2 gm iv daily and po doxy 100 bid thru 07/09 with weekly cbc, renal panel, esr and line removal at end of rx if process remains, please re visit drainage at end of iv run and extend abx will see prn. f/u with dr Reardon on the tpn. I generally do not provide that rx. Time Spent With Patient Time: Total time spent is greater than 50% in coordination of care (as documented) at patient's floor/unit and/or counseling patient:
[2024-05-28] MEDS: cefTRIAXone 2 GM in SODIUM CHLORIDE 0.9% (P) 50 ML IV (21:37)
[2024-05-28] MEDS: VANCOMYCIN/NS 750 MG IVPB 750 MG/150 ML BAG 120 MG IV (22:24)
[2024-05-29] VITALS (8 sets, daily range): BP systolic 90–145; BP diastolic 56–79; PULSE 90–101; RESP 17–20; TEMP 36–36.6; O2SAT 97–100; BMI 32.5
[2024-05-29] MEDS: PROMETHAZINE INJ 6.25 MG in SODIUM CHLORIDE 0.9% 50 ML 2.5 MG IV ×4 (00:42→18:37)
--- NOTE | 2024-05-29 03:30 | PC.NURSE ---
tele pvc monitor called rn re [id number]- Pt ambulated back in bed with walker from restroom.
[2024-05-29] MEDS: LEVOTHYROXINE SODIUM 125 MCG, LEVOTHYROXINE SODIUM 50 MCG 175 MCG PO (05:53)
[2024-05-29 05:59] LABS: Basophils # (Auto) 0.1 Thou/mm3 (0.0-0.2); Basophils % (Auto) 1 % (0-2.5); Eosinophils # (Auto) 0.5 Thou/mm3 (0.0-0.5); Eosinophils % (Auto) 8 % (0-10); Hematocrit 25.1 % (36.0-46.0); Immature Granulocytes % (Auto) 1 % (0-0); Immature Granulocytes Auto 0.03 Thou/mm3 (0.00-0.00); Lymphocytes # (Auto) 1.2 Thou/mm3 (1.0-4.8); Lymphocytes % (Auto) 21 % (10-50); Mean Corpuscular HGB Conc 31.9 g/dl (31.0-37.0); Mean Corpuscular Hemoglobin 30.3 pg (25.0-35.0); Mean Corpuscular Volume 95 fL (80-100); Monocytes # (Auto) 1.2 Thou/mm3 (0.0-0.8); Monocytes % (Auto) 21 % (0-12); Neutrophils # (Auto) 2.8 Thou/mm3 (1.8-7.7); Neutrophils % (Auto) 49 % (37-80); Nucleated Red Blood Cell % 0 /100 WBC (0); Platelet Count 217 Thou/mm3 (140-440); RDW Standard Deviation 73.6 fL (36.4-46.3); Red Blood Count 2.64 Miln/mm3 (4.00-5.20); White Blood Count 5.7 Thou/mm3 (3.6-11.0)
[2024-05-29 06:29] LABS: Alanine Aminotransferase 21 U/L (10-49); Albumin, Serum 3.3 gm/dL (3.5-5.0); Albumin/Globulin Ratio 1.4 (1.2-2.2); Alkaline Phosphatase 35 U/L (46-116); Anion Gap 10 (7-16); Aspartate Amino Transferase 36 U/L (0-34); BUN/Creatinine Ratio 13 Ratio (12-20); Beta HCG,Quantitative 5 mIU/mL (<5.0); Bilirubin,Total 0.2 mg/dL (0.3-1.2); Blood Urea Nitrogen 10 mg/dL (9-23); Calcium 9.1 mg/dL (8.3-10.6); Calcium (Corrected) 9.7 mg/dL (8.5-10.1); Carbon Dioxide 17.2 mMol/L (20.0-31.0); Chloride 117 mMol/L (98-107); Creatinine (Component) 0.8 mg/dL (0.6-1.3); Estimated Creatinine Clearance 81.6 mL/min (>60); Globulin 2.4 gm/dL (2.3-3.5); Glucose 137 mg/dL (74-106); Magnesium 2.2 mg/dL (1.6-2.6); Osmolality,Calculated 287 (275-295); Phosphorous 4.2 mg/dL (2.4-5.1); Potassium 3.1 mMol/L (3.4-5.1); Sodium 144 mMol/L (136-145); Total Protein 5.7 gm/dL (5.7-8.2); eGFR > 60 See Note
[2024-05-29] MEDS: INSULIN HUM REGULAR 1 UNIT/0.01 ML (PER UNIT) SC (07:50)
[2024-05-29] MEDS: cefTRIAXone 2 GM in SODIUM CHLORIDE 0.9% (P) 50 ML IV ×2 (08:29→20:24)
[2024-05-29] MEDS: POTASSIUM CHL 10 mEq IVPB 100 ML 100 MEQ IV ×3 (08:30→17:14)
[2024-05-29] MEDS: [UNRECOGNIZED DRUG - OTHER] IV (10:39)
[2024-05-29] MEDS: SODIUM CHLORIDE 0.9% IV (10:39)
[2024-05-29] MEDS: LIDOCAINE 5% 1 PATCH TOP (10:50)
--- NOTE | 2024-05-29 11:18 | PC.SS ---
Follow up note: Pt is on IV Diamox (diuretic), IV Potassium, 2 IV antibiotics, and IV antinausea medication. Pt will d/c to [facility]. [facility] is working on insurance authorization.
[2024-05-29] MEDS: VANCOMYCIN/NS 750 MG IVPB 750 MG/150 ML BAG 120 MG IV ×2 (11:30→21:43)
[2024-05-29] MEDS: ONDANSETRON INJ 2 MG/ML INJ 2 ML 4 MG IV (13:53)
[2024-05-29] MEDS: ACETAMINOPHEN 325 MG TABLET 650 MG PO ×2 (13:55→20:22)
--- NOTE | 2024-05-29 15:05 | PC.NURSE ---
TPN rate decreased to 17.[address]/exterior work helper
--- NOTE | 2024-05-29 16:36 | ESPR_ITS ---
<Statement entered by Иван Boland MD - 05/30/24 12:47> Patient was seen and examined at bedside. Patient reported that she felt nauseous 2 times yesterday. However, the patient is willing to try oral feed after we hold the TPN as she is feels fall because of the TPN. For that reason we will hold the TPN and start the patient on oral diet PUD diet. At the same time we will decrease her Diamox from 1 g twice daily to 500 mg twice daily and will also continue to monitor her acid-base balance. Patient reported that she has 3 episodes of watery diarrhea even though patient is not eating, she denied any mucus or blood, denied any fever or chills, and no abdominal pain. For that reason we sent for stool analysis including WBC, stool culture, parasite and ova. at this time patient is on vancomycin and Rocephin 2 g daily, pending for placement at longterm facility at the same time. Because the patient is suspected to have pseudotumor cerebri we were not able to switch to doxycycline because of the increased risk of increased intracranial pressure. Regarding her acid-base balance abnormalities at the patient continued to worsen we might consider consulting nephrology for further assistance. - Patient's plan and care discussed with my attending, Dr. Freddie Boland MD Internal Medicine PGY-2 Documentation for date of: 05/29/24 Subjective Subjective Interval history: Patient denies any today. No acute overnight events. She has not vomited in the past 3 days, however has still been feeling nauseous. Still is not feeling hungry at this time. Says experiencing diarrhea. No other complaints at this time Exam Vital Signs Temp Pulse Resp BP Pulse Ox O2 Del Method 96.8 F 101 H 18 145/79 H 99 Room Air 05/29/24 11:46 05/29/24 16:00 05/29/24 11:46 05/29/24 11:46 05/29/24 11:46 05/29/24 11:46 Narrative Exam General: AAOx3, NAD, HEENT: Dry mucous membranes, conjunctiva clear, EOMI, PERRLA, Cardiovascular: S1, S2, radial pulses +2 bilat, RRR Pulmonary: CTAB bilat no cough, no wheezing GI: Slight tenderness to light palpitation, no guarding, rigidity, rebound tenderness or distension, bowel sounds present Extremities: No presence of trace or pitting edema in lower extremities bilaterally, dorsalis pedis pulses +2 bilaterally, L upper hand in site of IV erythematous and TTP Neuro: AAOx3, resting tremor in UE bilat Psych: Good judgement, thought and behavior. Cooperative Objective Labs 05/30/24 05:03 05/30/24 05:03 Labs: Laboratory Results - last 24 hr 05/29/24 05:41 WBC 5.7 RBC 2.64 L Hgb 8.0 L Hct 25.1 L MCV 95 MCH 30.3 MCHC 31.9 RDW Std Deviation 73.6 H Plt Count 217 Neut % (Auto) 49 Lymph % (Auto) 21 [place] % (Auto) 21 H Eos % (Auto) 8 Baso % (Auto) 1 Neut # (Auto) 2.8 Lymph # (Auto) 1.2 [place] # (Auto) 1.2 H Eos # (Auto) 0.5 Baso # (Auto) 0.1 Immature Gran # (Auto) 0.03 H Absolute Nucleated RBC 0.00 Immature Gran % 1 H Nucleated RBC % 0 Sodium 144 Potassium 3.1 L Chloride 117 H Carbon Dioxide 17.2 L Anion Gap 10 BUN 10 Creatinine 0.8 Estim Creat Clear Calc 81.6 eGFR > 60 BUN/Creatinine Ratio 13 Glucose 137 H Calculated Osmolality 287 Calcium 9.1 Corrected Calcium 9.7 Phosphorus 4.2 Magnesium 2.2 Total Bilirubin 0.2 L AST 36 H ALT 21 Alkaline Phosphatase 35 L Total Protein 5.7 Albumin 3.3 L Globulin 2.4 Albumin/Globulin Ratio 1.4 Beta HCG, Quant 5 ABG Interpretation ABG results: 05/14/24 05/15/24 17:25 16:48 VBG pH 7.49 7.39 VBG pCO2 21 L 28 L VBG pO2 35 43 VBG Base Excess -5 L -7 L Quality Measures Quality Measures VTE prophylaxis (Heparin ) Assessment & Plan Assessment Current Active Medications: Generic Name Dose Route Start Last Admin Trade Name Freq PRN Reason Stop Dose Admin Acetaminophen 650 mg 05/15/24 18:27 05/29/24 13:55 Acetaminophen 325 Mg Tablet PO 06/14/24 18:26 650 mg Q4HR PRN Administration Fever >101 or pain 1-3 Citric Acid/Sodium Citrate 30 ml 05/27/24 11:30 05/29/24 08:37 Citric Acid/Sodium Citr 15 Ml Udc (Bicitra) PO 06/26/24 11:29 Not Given BID MEGAN Dextrose 25 ml 05/15/24 05:02 Dextrose 50%-Water Inj 50 Ml Syringe IV 06/14/24 05:01 Q15MIN PRN BG 50-70 responsive npo pt Dextrose 50 ml 05/15/24 05:02 Dextrose 50%-Water Inj 50 Ml Syringe IV 06/14/24 05:01 Q15MIN PRN BG <50 OR BG <70 & pt unresponsive Glucagon 1 mg 05/15/24 05:02 Glucagon Inj 1 Mg Vial IM Q15MIN PRN BG <70, and no IV access Promethazine HCl 6.25 mg/ 50.25 mls @ 2.5 mls/min 05/17/24 20:30 05/29/24 14:10 Sodium Chloride IV 06/16/24 20:29 2.5 mls/min Q6HR MEGAN Administration Vancomycin/Sodium Chloride 750 mg in 150 mls @ 120 mls/hr 05/28/24 22:00 05/29/24 11:30 Vancomycin/Ns 750 Mg Ivpb IV 06/04/24 21:59 120 mls/hr BID@1000,2200 MEGAN Administration Protocol Ceftriaxone Sodium 2 gm/ 50 mls @ 100 mls/hr 05/28/24 21:00 05/29/24 08:29 Sodium Chloride IV 06/04/24 20:59 100 mls/hr Q12HR MEGAN Administration Potassium Acetate 80 meq/ 1,050 mls @ 35 mls/hr 05/28/24 18:00 05/28/24 17:22 Multivitamins/Minerals 10 ml/ IV 05/29/24 17:59 35 mls/hr Amino Acids QDAY@1800 MEGAN Administration Protocol Acetazolamide Sodium 500 mg/ 50 mls @ 100 mls/hr 05/30/24 09:00 Sodium Chloride IV 06/29/24 08:59 BID MEGAN Insulin Human Regular 0 unit 05/21/24 17:00 05/29/24 12:22 Insulin Hum Regular 1 Unit/0.01 Ml (Per Unit) SC 06/20/24 16:59 Not Given ACHS MEGAN Protocol Levothyroxine Sodium 125 mcg/ 175 mcg 05/24/24 06:00 05/29/24 05:53 Levothyroxine Sodium 50 mcg PO 06/23/24 05:59 175 mcg ACBR MEGAN Administration Lidocaine 1 patch 05/21/24 09:21 05/29/24 10:50 Lidocaine 5% 1 Patch TOP 06/20/24 09:20 1 patch UD PRN Administration PAIN Protocol Ondansetron HCl 4 mg 05/19/24 09:48 05/29/24 13:53 Ondansetron Inj 2 Mg/Ml Inj 2 Ml IV 06/18/24 09:47 4 mg Q6HR PRN Administration NAUSEA OR VOMITING Protocol Pharmacy Consult 1 each 05/22/24 09:00 Vancomycin Pharmacy To Dose 1 Each Each IV 06/21/24 08:59 QDAY PRN CONSULT Simethicone 80 mg 05/26/24 11:42 Simethicone 80 Mg Chew PO 06/25/24 11:41 QID PRN GAS Plan 59-year-old female with a past medical history of hypertension, diabetes, hypothyroidism and hyperlipidemia who presented to the ED on 05/14/2024 with abdominal pain, nausea and vomiting that has persisted over the last 2 months. The patient has been admitted for management of intractable nausea and vomiting, starvation ketosis. Patient on imaging was found to have spinal epidural abscess with multiple attempts to transfer the patient to a nursing care various institutions infiltrative patient and recommend conservative management. #Intractable nausea and vomiting #? atypical pseudotumor cerebri Patient with diplopia/blurry vision and headache raising suspicion for pseudotumor cerebri subsequently started on acetazolamide with improvement Lumbar puncture unable to be done due to spinal epidural abscess Patient currently on PPN and clear liquid diet Spoke to neurology Dr Hernandez, states this may be atypical visitation of the arrhythmia , recommends to continue Diamox see patient improves, we cannot do LP at this time because of epidural abscess. Will continue with Diamox to see if patient's symptoms improve, if improved, patient likely has pseudotumor cerebri Weaning down TPN to encourage oral intake, now going to be at rate of 17.5 compared to 35 today Plan: -Decrease Diamox to 500 mg twice daily ?Citric acid and bicarb liquid -Zofran as needed -Reglan as needed -Encourage p.o. intake as tolerated -Neurology on case appreciate recommendations -GI on the case appreciate recommendations #Epidural abscess #Osteomyelitis/discitis Found on lumbar MRI Discussed case with multiple institutions rejected the case recommended conservative management Will continue trying to send the patient for neurosurgical evaluation Currently, patient denies any lower extremity weakness, saddle anesthesia and denies any fecal or urinary incontinence ID recommends for pt to have drainage of abscess at some point Plan: -On IV vancomycin, switched to Rocephin 2g qd -ID consulted, appreciate recommendations -Continue to pursue transfer #Metabolic acidosis Likely secondary to acetazolamide Current bicarb ~17 Plan: ? Continue with Diamox, continue citric acid with sodium bicarb #Electrolyte abnormalities #Hypokalemia secondary to #GI losses #Diarrhea Plan: ?Replete as needed ?Treat as above with antiemetics ?As above #Type 2 diabetes mellitus A1c 6.8 -on insulin sliding scale #Hypothyroidism Patient noted to have TSH of 75 however T4 at 0.76 ?Synthroid 175 mcg p.o. #Health Maintenance Disposition: Medsurg DVT prophylaxis: Heparin GI prophylaxis: Simethicone Diet: Clear liquid diet and PPN CODE STATUS: Full Patient seen and care discussed with my senior resident, Dr. Boland, and my attending physician, Dr. Freddie Solorio, PGY-1 Attending Provider Attestation/Addendum I have examined the patient, reviewed labs and imaging findings, discussed the case with the resident(s), and reviewed entered orders. I agree with the plan of care as outlined in this note, with these additional summaries/recommendations: Patient seen at bedside. No acute overnight events. Patient reports improvement in her intractable nausea and vomiting. She denies vomiting so far today but does have intermittent nausea still present. Continue antiemetics. Etiology for intractable nausea vomiting still unknown at this time and has undergone extensive workup. We will continue to monitor for now although overall appears to be improving. Patient also suspected of having atypical idiopathic intracranial hypertension although workup has been relatively unrevealing. Ultimately patient would benefit from LP to evaluate opening pressure although not a candidate given patient's spinal osteomyelitis +/- epidural abscess. We will decrease Diamox to 500 mg IV twice daily for worsening metabolic acidosis. Transfer was attempted for likely epidural abscess although it was rejected by multiple facilities who recommended IV antibiotics and no surgical intervention required at this time. We will continue IV antibiotics until July 09, 2024. ADIN positive and patient should follow-up with rheumatology outpatient. Mild hypokalemia present and replacement given. We are decreasing TPN for intractable nausea and vomiting as appetite improves. Repeat hematology and chemistry panel in AM. Dr. Frazier
--- NOTE | 2024-05-29 17:55 | PD.RESPRO ---
Documentation for date of: 05/29/24 Subjective Subjective Interval history: Patient was examined bedside this evening, refers one emetic episode today, refers not having apetite. Exam Vital Signs Temp Pulse Resp BP Pulse Ox O2 Del Method 97.8 F 98 18 127/75 99 Room Air 05/29/24 16:00 05/29/24 16:00 05/29/24 16:00 05/29/24 16:00 05/29/24 16:00 05/29/24 16:00 Narrative Exam General: AAOx3, NAD, sitting up on bed when examined HEENT: Dry mucous membranes, conjunctiva clear, EOMI, PERRLA, Cardiovascular: S1, S2, radial pulses +2 bilat, RRR Pulmonary: CTAB bilat no cough, no wheezing GI: Slight tenderness to light palpitation, no guarding, rigidity, rebound tenderness or distension, bowel sounds present Extremities: No presence of trace or pitting edema in lower extremities bilaterally, dorsalis pedis pulses +2 bilaterally, L upper hand in site of IV erythematous and TTP Neuro: AAOx3, resting tremor in UE bilat Psych: Good judgement, thought and behavior. Cooperative Objective Labs 06/01/24 04:37 06/01/24 04:37 Labs: Laboratory Results - last 24 hr 05/29/24 05:41 WBC 5.7 RBC 2.64 L Hgb 8.0 L Hct 25.1 L MCV 95 MCH 30.3 MCHC 31.9 RDW Std Deviation 73.6 H Plt Count 217 Neut % (Auto) 49 Lymph % (Auto) 21 [place] % (Auto) 21 H Eos % (Auto) 8 Baso % (Auto) 1 Neut # (Auto) 2.8 Lymph # (Auto) 1.2 [place] # (Auto) 1.2 H Eos # (Auto) 0.5 Baso # (Auto) 0.1 Immature Gran # (Auto) 0.03 H Absolute Nucleated RBC 0.00 Immature Gran % 1 H Nucleated RBC % 0 Sodium 144 Potassium 3.1 L Chloride 117 H Carbon Dioxide 17.2 L Anion Gap 10 BUN 10 Creatinine 0.8 Estim Creat Clear Calc 81.6 eGFR > 60 BUN/Creatinine Ratio 13 Glucose 137 H Calculated Osmolality 287 Calcium 9.1 Corrected Calcium 9.7 Phosphorus 4.2 Magnesium 2.2 Total Bilirubin 0.2 L AST 36 H ALT 21 Alkaline Phosphatase 35 L Total Protein 5.7 Albumin 3.3 L Globulin 2.4 Albumin/Globulin Ratio 1.4 Beta HCG, Quant 5 ABG Interpretation ABG results: 05/14/24 05/15/24 17:25 16:48 VBG pH 7.49 7.39 VBG pCO2 21 L 28 L VBG pO2 35 43 VBG Base Excess -5 L -7 L Quality Measures Quality Measures VTE prophylaxis (Heparin ) Assessment & Plan Assessment Current Active Medications: Generic Name Dose Route Start Last Admin Trade Name Freq PRN Reason Stop Dose Admin Acetaminophen 650 mg 05/15/24 18:27 05/29/24 13:55 Acetaminophen 325 Mg Tablet PO 06/14/24 18:26 650 mg Q4HR PRN Administration Fever >101 or pain 1-3 Citric Acid/Sodium Citrate 30 ml 05/27/24 11:30 05/29/24 08:37 Citric Acid/Sodium Citr 15 Ml Udc (Bicitra) PO 06/26/24 11:29 Not Given BID MEGAN Dextrose 25 ml 05/15/24 05:02 Dextrose 50%-Water Inj 50 Ml Syringe IV 06/14/24 05:01 Q15MIN PRN BG 50-70 responsive npo pt Dextrose 50 ml 05/15/24 05:02 Dextrose 50%-Water Inj 50 Ml Syringe IV 06/14/24 05:01 Q15MIN PRN BG <50 OR BG <70 & pt unresponsive Glucagon 1 mg 05/15/24 05:02 Glucagon Inj 1 Mg Vial IM Q15MIN PRN BG <70, and no IV access Promethazine HCl 6.25 mg/ 50.25 mls @ 2.5 mls/min 05/17/24 20:30 05/29/24 14:10 Sodium Chloride IV 06/16/24 20:29 2.5 mls/min Q6HR MEGAN Administration Vancomycin/Sodium Chloride 750 mg in 150 mls @ 120 mls/hr 05/28/24 22:00 05/29/24 11:30 Vancomycin/Ns 750 Mg Ivpb IV 06/04/24 21:59 120 mls/hr BID@1000,2200 MEGAN Administration Protocol Ceftriaxone Sodium 2 gm/ 50 mls @ 100 mls/hr 05/28/24 21:00 05/29/24 08:29 Sodium Chloride IV 06/04/24 20:59 100 mls/hr Q12HR MEGAN Administration Potassium Acetate 80 meq/ 1,050 mls @ 35 mls/hr 05/28/24 18:00 05/28/24 17:22 Multivitamins/Minerals 10 ml/ IV 05/29/24 17:59 35 mls/hr Amino Acids QDAY@1800 MEGAN Administration Protocol Acetazolamide Sodium 500 mg/ 50 mls @ 100 mls/hr 05/30/24 09:00 Sodium Chloride IV 06/29/24 08:59 BID MEGAN Insulin Human Regular 0 unit 05/21/24 17:00 05/29/24 16:52 Insulin Hum Regular 1 Unit/0.01 Ml (Per Unit) SC 06/20/24 16:59 Not Given ACHS MEGAN Protocol Levothyroxine Sodium 125 mcg/ 175 mcg 05/24/24 06:00 05/29/24 05:53 Levothyroxine Sodium 50 mcg PO 06/23/24 05:59 175 mcg ACBR MEGAN Administration Lidocaine 1 patch 05/21/24 09:21 05/29/24 10:50 Lidocaine 5% 1 Patch TOP 06/20/24 09:20 1 patch UD PRN Administration PAIN Protocol Ondansetron HCl 4 mg 05/19/24 09:48 05/29/24 13:53 Ondansetron Inj 2 Mg/Ml Inj 2 Ml IV 06/18/24 09:47 4 mg Q6HR PRN Administration NAUSEA OR VOMITING Protocol Pharmacy Consult 1 each 05/22/24 09:00 Vancomycin Pharmacy To Dose 1 Each Each IV 06/21/24 08:59 QDAY PRN CONSULT Simethicone 80 mg 05/26/24 11:42 Simethicone 80 Mg Chew PO 06/25/24 11:41 QID PRN GAS Plan 59-year-old female with a past medical history of hypertension, diabetes, hypothyroidism and hyperlipidemia who presented to the ED on 05/14/2024 with abdominal pain, nausea and vomiting that has persisted over the last 2 months. The patient has been admitted for management of intractable nausea and vomiting, starvation ketosis. Patient on imaging was found to have spinal epidural abscess conservative management. 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 -MRI of the C-spine and T-spine: Did not show any evidence of demyelination as seen in neuromyelitis optica spectrum disorder. -Continue Diamox bid for now for possible atypical pseudo tumor cerebri, untill her sepsis resolved and she is stable to to LP , where we can see opening pressure . Patient's care discussed with attending physician, Dr Josie Schafer MD PGY3 Attending Provider Attestation/Addendum I personally have seen and examined the patient at the bedside and agree with resident findings, assessment and plan of care. Encouraged her to increase oral intake, sit up at the edge of the bed or on the chair as she tolerated.
[2024-05-29] MEDS: POTASSIUM CHL 10 mEq IVPB 10 MEQ/100 ML BAG 100 MEQ IV (18:33)
--- NOTE | 2024-05-29 20:02 | ESPR_ITS ---
Documentation for date of: 05/29/24 Subjective Subjective Interval history: TPN is off Patient did have some food but vomited Exam Vital Signs Temp Pulse Resp BP Pulse Ox O2 Del Method 97.8 F 98 18 127/75 99 Room Air 05/29/24 16:00 05/29/24 16:00 05/29/24 16:00 05/29/24 16:00 05/29/24 16:00 05/29/24 16:00 Constitutional Comments: Alert oriented Routine Respiratory Exam Comments: Normal to auscultation Routine Abdominal Exam Comments: Soft nontender Objective Labs 05/29/24 05:41 05/29/24 05:41 Labs: Laboratory Results - last 24 hr 05/29/24 05:41 WBC 5.7 RBC 2.64 L Hgb 8.0 L Hct 25.1 L MCV 95 MCH 30.3 MCHC 31.9 RDW Std Deviation 73.6 H Plt Count 217 Neut % (Auto) 49 Lymph % (Auto) 21 [place] % (Auto) 21 H Eos % (Auto) 8 Baso % (Auto) 1 Neut # (Auto) 2.8 Lymph # (Auto) 1.2 [place] # (Auto) 1.2 H Eos # (Auto) 0.5 Baso # (Auto) 0.1 Immature Gran # (Auto) 0.03 H Absolute Nucleated RBC 0.00 Immature Gran % 1 H Nucleated RBC % 0 Sodium 144 Potassium 3.1 L Chloride 117 H Carbon Dioxide 17.2 L Anion Gap 10 BUN 10 Creatinine 0.8 Estim Creat Clear Calc 81.6 eGFR > 60 BUN/Creatinine Ratio 13 Glucose 137 H Calculated Osmolality 287 Calcium 9.1 Corrected Calcium 9.7 Phosphorus 4.2 Magnesium 2.2 Total Bilirubin 0.2 L AST 36 H ALT 21 Alkaline Phosphatase 35 L Total Protein 5.7 Albumin 3.3 L Globulin 2.4 Albumin/Globulin Ratio 1.4 Beta HCG, Quant 5 Impressions Impression: # Persistent nausea vomiting patient off the TPN Recommend very very small portions of food and see how she does Increase promethazine to 12.5 mg IV push every 6 hours standing order ABG Interpretation ABG results: 05/14/24 05/15/24 17:25 16:48 VBG pH 7.49 7.39 VBG pCO2 21 L 28 L VBG pO2 35 43 VBG Base Excess -5 L -7 L Assessment & Plan A&P Narrative mild anemia presumptive gastroparesis with controlled dm dermoid tumor hypothyroid htn hld possible epidural abscess with neg cx on empiric vanco/zosyn ideally, this is drained or pt is referred for such so that if the referral is denied, please document any rationale for no intervention so we all can know why that is the case ok to change zosyn to rocephin and vanco to po doxy and see if other meds can be changed to po too. if empiric rx is to be the goal, then use agents that are supported by micro or are easy to use. she likely needs dermoid addressed at some point as well. will not see again unless requested as inpt current abx are more toxic and require more daily doses then alternative empiric rx. favor rocephin 2 gm iv daily and po doxy 100 bid thru 07/09 with weekly cbc, renal panel, esr and line removal at end of rx if process remains, please re visit drainage at end of iv run and extend abx will see prn. f/u with dr Reardon on the tpn. I generally do not provide that rx. Time Spent With Patient Time: Total time spent is greater than 50% in coordination of care (as documented) at patient's floor/unit and/or counseling patient:
--- NOTE | 2024-05-29 20:53 | PC.NURSE ---
Addendum entered by Wilber Chaves RN 05/29/24 22:14: Potassium redraw was 3.4 Original Note: Lab called saying patients potassium was 7. Lab told RN that they will have to redraw because it is such a big jump it has to be an error.
[2024-05-29 22:14] LABS: Albumin, Serum 3.2 gm/dL (3.5-5.0); Anion Gap 11 (7-16); BUN/Creatinine Ratio 10 Ratio (12-20); Blood Urea Nitrogen 8 mg/dL (9-23); Calcium 9.5 mg/dL (8.3-10.6); Calcium (Corrected) 10.1 mg/dL (8.5-10.1); Carbon Dioxide 15.6 mMol/L (20.0-31.0); Chloride 120 mMol/L (98-107); Creatinine (Component) 0.8 mg/dL (0.6-1.3); Estimated Creatinine Clearance 81.6 mL/min (>60); Glucose 105 mg/dL (74-106); Osmolality,Calculated 290 (275-295); Phosphorous 4.7 mg/dL (2.4-5.1); Potassium 3.4 mMol/L (3.4-5.1); Sodium 147 mMol/L (136-145); eGFR > 60 See Note
[2024-05-29] MEDS: PROMETHAZINE INJ 12.5 MG in SODIUM CHLORIDE 0.9% 50 ML 2.5 MG IV (23:54)
[2024-05-29 23:58] LABS: Stool for WBCs None Seen (Negative)
[2024-05-30] VITALS (8 sets, daily range): BP systolic 100–131; BP diastolic 55–76; PULSE 92–105; RESP 16–18; TEMP 36.1–36.8; O2SAT 96–99
[2024-05-30 05:23] LABS: Basophils # (Auto) 0.1 Thou/mm3 (0.0-0.2); Basophils % (Auto) 1 % (0-2.5); Eosinophils # (Auto) 0.5 Thou/mm3 (0.0-0.5); Eosinophils % (Auto) 9 % (0-10); Hematocrit 25.2 % (36.0-46.0); Immature Granulocytes % (Auto) 1 % (0-0); Immature Granulocytes Auto 0.03 Thou/mm3 (0.00-0.00); Lymphocytes # (Auto) 1.3 Thou/mm3 (1.0-4.8); Lymphocytes % (Auto) 26 % (10-50); Mean Corpuscular HGB Conc 31.3 g/dl (31.0-37.0); Mean Corpuscular Hemoglobin 30.2 pg (25.0-35.0); Mean Corpuscular Volume 96 fL (80-100); Monocytes % (Auto) 20 % (0-12); Neutrophils # (Auto) 2.2 Thou/mm3 (1.8-7.7); Neutrophils % (Auto) 44 % (37-80); Nucleated Red Blood Cell % 0 /100 WBC (0); Platelet Count 226 Thou/mm3 (140-440); RDW Standard Deviation 73.3 fL (36.4-46.3); Red Blood Count 2.62 Miln/mm3 (4.00-5.20); White Blood Count 5.1 Thou/mm3 (3.6-11.0)
[2024-05-30] MEDS: PROMETHAZINE INJ 12.5 MG in SODIUM CHLORIDE 0.9% 50 ML 2.5 MG IV ×3 (05:23→18:18)
[2024-05-30] MEDS: LEVOTHYROXINE SODIUM 125 MCG, LEVOTHYROXINE SODIUM 50 MCG 175 MCG PO (05:25)
[2024-05-30 05:33] LABS: Hemoglobin 7.9 g/dL (12.0-16.0)
[2024-05-30 07:03] LABS: Alanine Aminotransferase 16 U/L (10-49); Albumin, Serum 3.3 gm/dL (3.5-5.0); Albumin/Globulin Ratio 1.3 (1.2-2.2); Alkaline Phosphatase 41 U/L (46-116); Anion Gap 13 (7-16); Aspartate Amino Transferase 40 U/L (0-34); BUN/Creatinine Ratio 10 Ratio (12-20); Bilirubin,Total 0.4 mg/dL (0.3-1.2); Blood Urea Nitrogen 9 mg/dL (9-23); Calcium 9.9 mg/dL (8.3-10.6); Calcium (Corrected) 10.5 mg/dL (8.5-10.1); Chloride 119 mMol/L (98-107); Creatinine (Component) 0.9 mg/dL (0.6-1.3); Estimated Creatinine Clearance 72.5 mL/min (>60); Globulin 2.6 gm/dL (2.3-3.5); Glucose 106 mg/dL (74-106); Magnesium 2.2 mg/dL (1.6-2.6); Osmolality,Calculated 291 (275-295); Phosphorous 5.1 mg/dL (2.4-5.1); Potassium 3.2 mMol/L (3.4-5.1); Sodium 147 mMol/L (136-145); Total Protein 5.9 gm/dL (5.7-8.2); eGFR > 60 See Note
[2024-05-30] MEDS: cefTRIAXone 2 GM in SODIUM CHLORIDE 0.9% (P) 50 ML IV ×2 (08:13→21:13)
--- NOTE | 2024-05-30 08:35 | PD.RESPRO ---
Documentation for date of: 05/30/24 Subjective Subjective Interval history: patient was examined bedside this morning, she feels little nauseous but no vomitus . Exam Vital Signs Temp Pulse Resp BP Pulse Ox O2 Del Method 97.7 F 94 18 131/75 H 99 Room Air 05/30/24 04:00 05/30/24 04:00 05/30/24 04:00 05/30/24 04:00 05/30/24 04:00 05/30/24 04:00 Narrative Exam General: AAOx3, NAD HEENT: Dry mucous membranes, conjunctiva clear, EOMI, PERRLA, Cardiovascular: S1, S2, radial pulses +2 bilat, RRR Pulmonary: CTAB bilat no cough, no wheezing GI: no guarding, rigidity, rebound tenderness or distension, bowel sounds present Extremities: No presence of trace or pitting edema in lower extremities bilaterally. Neuro: AAOx3, resting tremor in UE bilat Psych: Good judgement, thought and behavior. Cooperative Objective Labs 06/01/24 04:37 06/01/24 04:37 Labs: Laboratory Results - last 24 hr 05/29/24 05/29/24 05/30/24 16:50 21:26 05:03 WBC 5.1 RBC 2.62 L Hgb 7.9 L Hct 25.2 L MCV 96 MCH 30.2 MCHC 31.3 RDW Std Deviation 73.3 H Plt Count 226 Neut % (Auto) 44 Lymph % (Auto) 26 [place] % (Auto) 20 H Eos % (Auto) 9 Baso % (Auto) 1 Neut # (Auto) 2.2 Lymph # (Auto) 1.3 [place] # (Auto) 1.0 H Eos # (Auto) 0.5 Baso # (Auto) 0.1 Immature Gran # (Auto) 0.03 H Absolute Nucleated RBC 0.00 Immature Gran % 1 H Nucleated RBC % 0 Sodium 147 H 147 H Potassium 3.4 3.2 L Chloride 120 H 119 H Carbon Dioxide 15.6 L 15.0 L Anion Gap 11 13 BUN 8 L 9 Creatinine 0.8 0.9 Estim Creat Clear Calc 81.6 72.5 eGFR > 60 > 60 BUN/Creatinine Ratio 10 L 10 L Glucose 105 106 Calculated Osmolality 290 291 Calcium 9.5 9.9 Corrected Calcium 10.1 10.5 H Phosphorus 4.7 5.1 Magnesium 2.2 Total Bilirubin 0.4 AST 40 H ALT 16 Alkaline Phosphatase 41 L Total Protein 5.9 Albumin 3.2 L 3.3 L Globulin 2.6 Albumin/Globulin Ratio 1.3 Stool for White Cells None Seen ABG Interpretation ABG results: 05/14/24 05/15/24 17:25 16:48 VBG pH 7.49 7.39 VBG pCO2 21 L 28 L VBG pO2 35 43 VBG Base Excess -5 L -7 L Quality Measures Quality Measures VTE prophylaxis (Heparin ) Assessment & Plan Assessment Current Active Medications: Generic Name Dose Route Start Last Admin Trade Name Freq PRN Reason Stop Dose Admin Acetaminophen 650 mg 05/15/24 18:27 05/29/24 20:22 Acetaminophen 325 Mg Tablet PO 06/14/24 18:26 650 mg Q4HR PRN Administration Fever >101 or pain 1-3 Citric Acid/Sodium Citrate 30 ml 05/27/24 11:30 05/30/24 08:16 Citric Acid/Sodium Citr 15 Ml Udc (Bicitra) PO 06/26/24 11:29 Not Given BID MEGAN Dextrose 25 ml 05/15/24 05:02 Dextrose 50%-Water Inj 50 Ml Syringe IV 06/14/24 05:01 Q15MIN PRN BG 50-70 responsive npo pt Dextrose 50 ml 05/15/24 05:02 Dextrose 50%-Water Inj 50 Ml Syringe IV 06/14/24 05:01 Q15MIN PRN BG <50 OR BG <70 & pt unresponsive Glucagon 1 mg 05/15/24 05:02 Glucagon Inj 1 Mg Vial IM Q15MIN PRN BG <70, and no IV access Vancomycin/Sodium Chloride 750 mg in 150 mls @ 120 mls/hr 05/28/24 22:00 05/29/24 21:43 Vancomycin/Ns 750 Mg Ivpb IV 06/04/24 21:59 120 mls/hr BID@1000,2200 MEGAN Administration Protocol Ceftriaxone Sodium 2 gm/ 50 mls @ 100 mls/hr 05/28/24 21:00 05/30/24 08:13 Sodium Chloride IV 06/04/24 20:59 100 mls/hr Q12HR MEGAN Administration Acetazolamide Sodium 500 mg/ 50 mls @ 100 mls/hr 05/30/24 09:00 Sodium Chloride IV 06/29/24 08:59 BID MEGAN Promethazine HCl 12.5 mg/ 50.5 mls @ 2.5 mls/min 05/30/24 00:00 05/30/24 05:23 Sodium Chloride IV 06/29/24 00:00 2.5 mls/min Q6HR MEGAN Administration Insulin Human Regular 0 unit 05/21/24 17:00 05/30/24 08:13 Insulin Hum Regular 1 Unit/0.01 Ml (Per Unit) SC 06/20/24 16:59 Not Given ACHS MEGAN Protocol Levothyroxine Sodium 125 mcg/ 175 mcg 05/24/24 06:00 05/30/24 05:25 Levothyroxine Sodium 50 mcg PO 06/23/24 05:59 175 mcg ACBR MEGAN Administration Lidocaine 1 patch 05/21/24 09:21 05/29/24 10:50 Lidocaine 5% 1 Patch TOP 06/20/24 09:20 1 patch UD PRN Administration PAIN Protocol Ondansetron HCl 4 mg 05/19/24 09:48 05/29/24 13:53 Ondansetron Inj 2 Mg/Ml Inj 2 Ml IV 06/18/24 09:47 4 mg Q6HR PRN Administration NAUSEA OR VOMITING Protocol Pharmacy Consult 1 each 05/22/24 09:00 Vancomycin Pharmacy To Dose 1 Each Each IV 06/21/24 08:59 QDAY PRN CONSULT Simethicone 80 mg 05/26/24 11:42 Simethicone 80 Mg Chew PO 06/25/24 11:41 QID PRN GAS Plan 59-year-old female with a past medical history of hypertension, diabetes, hypothyroidism and hyperlipidemia who presented to the ED on 05/14/2024 with abdominal pain, nausea and vomiting that has persisted over the last 2 months. The patient has been admitted for management of intractable nausea and vomiting, starvation ketosis. Patient on imaging was found to have spinal epidural abscess conservative management. 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 -MRI of the C-spine and T-spine: Did not show any evidence of demyelination as seen in neuromyelitis optica spectrum disorder. -Continue Diamox bid for now for possible atypical pseudo tumor cerebri, untill her sepsis resolved and she is stable to to LP , where we can see opening pressure . Rest of medical management as per Primary team . Patient's care discussed with attending physician, Dr Josie Vasquez MD,PGY-3 Attending Provider Attestation/Addendum I personally have seen and examined the patient at the bedside and agree with resident findings, assessment and plan of care. Noted that she is tolerating oral diet with less nausea and vomiting. She is able to walk with a walker. Her pain and paresthesias in the right lower extremity have gotten significantly better.
--- NOTE | 2024-05-30 09:25 | PC.NURSE ---
call to pharmacy for Diamox
[2024-05-30] MEDS: ACETAzolaMIDE SOD 500 MG in SODIUM CHLORIDE 0.9% 50 ML 100 MG IV (09:31)
--- NOTE | 2024-05-30 10:57 | XR_ITS ---
Examination: Nuclear medicine gastric emptying study Exam date and time: 12/30/2023 0822 hours INDICATIONS: Nausea vomiting with eating years TECHNIQUE AND FINDINGS: Oral administration 2.2 mCi technetium 99m sulfur colloid Imaging to 120 minutes Retention of activity at 2 hours is 35.5%, normal IMPRESSION: Normal gastric emptying
--- NOTE | 2024-05-30 11:13 | PC.SS ---
Addendum entered by Aminah Rodrigues 05/30/24 11:22: Physician residents and Dr. Frazier are aware [facility] has insurance authorization for IV antibiotic, Rocephin 2grm 1X day unitl Jul 09, 2024 and the insurance authorization expires 06-05-24. Original Note: SS was informed by resident physicans pt is requiring IV Rocphen 2gram 2 X day until Jul 09. SS spoke to Oneida from [facility] they are unable to accommodate 2X day due to patient's health insurance. SS spoke to Catherine from [facility] they are unable to accommodate 2X day.
[2024-05-30] MEDS: VANCOMYCIN/NS 750 MG IVPB 750 MG/150 ML BAG 120 MG IV (11:28)
[2024-05-30] MEDS: DEXTROSE 5%-WATER 1,000 ML 120 ML IV (12:31)
--- NOTE | 2024-05-30 14:07 | ESPR_ITS ---
<Statement entered by Иван Boland MD - 05/30/24 20:06> Patient is seen and examined at bedside. Yesterday we held TPN and restarted her oral feeding, patient reported that she started to vomit after she ate 1 grape only. We noticed that today patient heart rate between the 90s and 110s however her hemoglobin stable at 7.9. Potassium was 3.2 and her sodium bicarb significantly low at 15. For that reason we decided to decrease her Diamox to 250 mg twice daily, sent for VBG, and consulted the special education case manager Dr. Hadley. We called Dr. Reardon for further recommendation and he recommended to continue with the gastric emptying study repeat. Our plan of the patient gastric emptying study was nonconclusive we will try to transfer the patient to higher level of care facility. We repleted her electrolytes and will give her D5W because of hyperkalemia and hypernatremia. - Patient's plan and care discussed with my attending, Dr. Freddie Boland MD Internal Medicine PGY-2 Documentation for date of: 05/30/24 Subjective Subjective Interval history: Patient examined at bedside today. No acute overnight events. Says that she had dinner last night and started to eat 1 grape then immediately threw up after. Had experienced a couple more episodes of vomiting at this diarrhea yesterday. Still is not feeling that hungry. No other complaints at this time Exam Vital Signs Temp Pulse Resp BP Pulse Ox O2 Del Method 97.7 F 104 H 16 128/72 99 Room Air 05/30/24 12:00 05/30/24 12:00 05/30/24 12:00 05/30/24 12:00 05/30/24 12:00 05/30/24 12:00 Narrative Exam General: AAOx3, NAD, HEENT: Dry mucous membranes, conjunctiva clear, EOMI, PERRLA, Cardiovascular: S1, S2, radial pulses +2 bilat, RRR Pulmonary: CTAB bilat no cough, no wheezing GI: Slight tenderness to light palpitation, no guarding, rigidity, rebound tenderness or distension, bowel sounds present Extremities: No presence of trace or pitting edema in lower extremities bilaterally, dorsalis pedis pulses +2 bilaterally, L upper hand in site of IV erythematous and TTP Neuro: AAOx3, resting tremor in UE bilat Psych: Good judgement, thought and behavior. Cooperative Objective Labs 05/31/24 04:58 05/31/24 04:58 Labs: Laboratory Results - last 24 hr 05/29/24 05/29/24 05/30/24 16:50 21:26 05:03 WBC 5.1 RBC 2.62 L Hgb 7.9 L Hct 25.2 L MCV 96 MCH 30.2 MCHC 31.3 RDW Std Deviation 73.3 H Plt Count 226 Neut % (Auto) 44 Lymph % (Auto) 26 [place] % (Auto) 20 H Eos % (Auto) 9 Baso % (Auto) 1 Neut # (Auto) 2.2 Lymph # (Auto) 1.3 [place] # (Auto) 1.0 H Eos # (Auto) 0.5 Baso # (Auto) 0.1 Immature Gran # (Auto) 0.03 H Absolute Nucleated RBC 0.00 Immature Gran % 1 H Nucleated RBC % 0 Sodium 147 H 147 H Potassium 3.4 3.2 L Chloride 120 H 119 H Carbon Dioxide 15.6 L 15.0 L Anion Gap 11 13 BUN 8 L 9 Creatinine 0.8 0.9 Estim Creat Clear Calc 81.6 72.5 eGFR > 60 > 60 BUN/Creatinine Ratio 10 L 10 L Glucose 105 106 Calculated Osmolality 290 291 Calcium 9.5 9.9 Corrected Calcium 10.1 10.5 H Phosphorus 4.7 5.1 Magnesium 2.2 Total Bilirubin 0.4 AST 40 H ALT 16 Alkaline Phosphatase 41 L Total Protein 5.9 Albumin 3.2 L 3.3 L Globulin 2.6 Albumin/Globulin Ratio 1.3 Stool for White Cells None Seen ABG Interpretation ABG results: 05/14/24 05/15/24 17:25 16:48 VBG pH 7.49 7.39 VBG pCO2 21 L 28 L VBG pO2 35 43 VBG Base Excess -5 L -7 L Quality Measures Quality Measures VTE prophylaxis (Heparin ) Assessment & Plan Assessment Current Active Medications: Generic Name Dose Route Start Last Admin Trade Name Freq PRN Reason Stop Dose Admin Acetaminophen 650 mg 05/15/24 18:27 05/29/24 20:22 Acetaminophen 325 Mg Tablet PO 06/14/24 18:26 650 mg Q4HR PRN Administration Fever >101 or pain 1-3 Citric Acid/Sodium Citrate 30 ml 05/27/24 11:30 05/30/24 08:16 Citric Acid/Sodium Citr 15 Ml Udc (Bicitra) PO 06/26/24 11:29 Not Given BID MEGAN Dextrose 25 ml 05/15/24 05:02 Dextrose 50%-Water Inj 50 Ml Syringe IV 06/14/24 05:01 Q15MIN PRN BG 50-70 responsive npo pt Dextrose 50 ml 05/15/24 05:02 Dextrose 50%-Water Inj 50 Ml Syringe IV 06/14/24 05:01 Q15MIN PRN BG <50 OR BG <70 & pt unresponsive Glucagon 1 mg 05/15/24 05:02 Glucagon Inj 1 Mg Vial IM Q15MIN PRN BG <70, and no IV access Vancomycin/Sodium Chloride 750 mg in 150 mls @ 120 mls/hr 05/28/24 22:00 05/30/24 11:28 Vancomycin/Ns 750 Mg Ivpb IV 06/04/24 21:59 120 mls/hr BID@1000,2200 MEGAN Administration Protocol Ceftriaxone Sodium 2 gm/ 50 mls @ 100 mls/hr 05/28/24 21:00 05/30/24 08:13 Sodium Chloride IV 06/04/24 20:59 100 mls/hr Q12HR MEGAN Administration Promethazine HCl 12.5 mg/ 50.5 mls @ 2.5 mls/min 05/30/24 00:00 05/30/24 12:32 Sodium Chloride IV 06/29/24 00:00 2.5 mls/min Q6HR MEGAN Administration Acetazolamide Sodium 250 mg/ 50 mls @ 100 mls/hr 05/30/24 21:00 Sodium Chloride IV 06/29/24 20:59 BID MEGNA Potassium Chloride 10 meq in 100 mls @ 100 mls/hr 05/30/24 11:01 Kcl Ivpb IV 05/30/24 15:00 Q1H MEGAN Dextrose 1,000 mls @ 120 mls/hr 05/30/24 11:15 05/30/24 12:31 D5w IV 05/30/24 19:34 120 mls/hr .Q8H20M MEGNA Administration Insulin Human Regular 0 unit 05/21/24 17:00 05/30/24 08:13 Insulin Hum Regular 1 Unit/0.01 Ml (Per Unit) SC 06/20/24 16:59 Not Given ACHS MEGAN Protocol Levothyroxine Sodium 125 mcg/ 175 mcg 05/24/24 06:00 05/30/24 05:25 Levothyroxine Sodium 50 mcg PO 06/23/24 05:59 175 mcg ACBR MEGAN Administration Lidocaine 1 patch 05/21/24 09:21 05/29/24 10:50 Lidocaine 5% 1 Patch TOP 06/20/24 09:20 1 patch UD PRN Administration PAIN Protocol Ondansetron HCl 4 mg 05/19/24 09:48 05/29/24 13:53 Ondansetron Inj 2 Mg/Ml Inj 2 Ml IV 06/18/24 09:47 4 mg Q6HR PRN Administration NAUSEA OR VOMITING Protocol Pharmacy Consult 1 each 05/22/24 09:00 Vancomycin Pharmacy To Dose 1 Each Each IV 06/21/24 08:59 QDAY PRN CONSULT Simethicone 80 mg 05/26/24 11:42 Simethicone 80 Mg Chew PO 06/25/24 11:41 QID PRN GAS Plan 59-year-old female with a past medical history of hypertension, diabetes, hypothyroidism and hyperlipidemia who presented to the ED on 05/14/2024 with abdominal pain, nausea and vomiting that has persisted over the last 2 months. The patient has been admitted for management of intractable nausea and vomiting, starvation ketosis. Patient on imaging was found to have spinal epidural abscess with multiple attempts to transfer the patient to a nursing care various institutions infiltrative patient and recommend conservative management. #Intractable nausea and vomiting #? atypical pseudotumor cerebri Patient with diplopia/blurry vision and headache raising suspicion for pseudotumor cerebri subsequently started on acetazolamide with improvement Lumbar puncture unable to be done due to spinal epidural abscess Patient currently on PPN and clear liquid diet Spoke to neurology Dr Hernandez, states this may be atypical visitation of the arrhythmia , recommends to continue Diamox see patient improves, we cannot do LP at this time because of epidural abscess. Will continue with Diamox to see if patient's symptoms improve, if improved, patient likely has pseudotumor cerebri Turned off TPN, patient is still vomiting At this point we will retry for gastric emptying study to see if there is a motility issue Spoke with Dr. Reardon, wants to proceed with gastric emptying study and go from there for further imaging/workup for possible transfer And concerns with pseudotumor cerebri, cannot perform LP until epidural resolves and patient will need 6 weeks of antibiotics Plan: -Decrease Diamox to 250 mg twice daily ?Citric acid and bicarb liquid -Zofran as needed -Reglan as needed -Encourage p.o. intake as tolerated -Neurology on case appreciate recommendations -GI on the case appreciate recommendations #Epidural abscess #Osteomyelitis/discitis Found on lumbar MRI Discussed case with multiple institutions rejected the case recommended conservative management Will continue trying to send the patient for neurosurgical evaluation Currently, patient denies any lower extremity weakness, saddle anesthesia and denies any fecal or urinary incontinence ID recommends for pt to have drainage of abscess at some point ID recommends 2 g daily Rocephin and doxycycline, however patient cannot take doxycycline as she already has GI upset Will eventually adjust rocephin 2g daily once pt is d/c to SNF Plan: -On IV vancomycin, and Rocephin 2g IV BID -ID consulted, appreciate recommendations -Continue to pursue transfer #Metabolic acidosis Likely secondary to acetazolamide Current bicarb ~15 Plan: ? Continue with Diamox, continue citric acid with sodium bicarb #Electrolyte abnormalities #Hypokalemia secondary to #GI losses #Diarrhea Plan: ?Replete as needed ?Treat as above with antiemetics ?As above #Type 2 diabetes mellitus A1c 6.8 -on insulin sliding scale #Hypothyroidism Patient noted to have TSH of 75 however T4 at 0.76 ?Synthroid 175 mcg p.o. #Health Maintenance Disposition: Medsurg DVT prophylaxis: Heparin GI prophylaxis: Simethicone Diet: Clear liquid diet and PPN CODE STATUS: Full Patient seen and care discussed with my senior resident, Dr. Boland, and my attending physician, Dr. Freddie Solorio, PGY-1 Attending Provider Attestation/Addendum I have examined the patient, reviewed labs and imaging findings, discussed the case with the resident(s), and reviewed entered orders. I agree with the plan of care as outlined in this note, with these additional summaries/recommendations: Patient seen at bedside. No acute overnight events. Patient reports improvement in her intractable nausea and vomiting. Although patient did vomit after eating one grape today. Continue antiemetic promethazine 12.5 IV q6 hrs and frequent small meals. DC TPN. Etiology for intractable nausea vomiting still unknown at this time and has undergone extensive workup. We will repeat gastric emptying study given previous was inconclusive. Diabetic gastroparesis still high on differential. Appreciate GI recs on further work-up. Patient also suspected of having atypical idiopathic intracranial hypertension. Ultimately, patient would benefit from LP to evaluate opening pressure although not a candidate given patient's spinal osteomyelitis +/- epidural abscess. We will decrease Diamox to to 250 mg IV twice daily. Transfer was attempted for likely epidural abscess although it was rejected by multiple facilities who recommended IV antibiotics and no surgical intervention required at this time. We will continue IV antibiotics until July 09, 2024. ADIN positive and patient should follow-up with rheumatology outpatient. Possible rheumatologic component contributing to patients Nausea/vomiting. Mild hypokalemia present and replacement given. Continue levothyroxine for hypothyroidism. Repeat hematology and chemistry panel in AM. Dr. Frazier
[2024-05-30 14:28] LABS: Vancomycin,Trough 18.9 mcg/mL (5.0-10.0)
[2024-05-30] MEDS: POTASSIUM CHL 10 mEq IVPB 10 MEQ/100 ML BAG 100 MEQ IV ×4 (14:31→18:19)
--- NOTE | 2024-05-30 15:42 | PD.RESCONSUL ---
HPI Data of Consult Patient: new to practice Consult date: 05/30/24 Requesting Physician: Clement Frazier MD Admitting Provider: Lonny Fajardo MD Attending Provider: Clement Frazier MD Primary Care Provider: Physician No Primary/Family Consult Narrative Reason for consult: Hypokalemia History of present illness: Ms Palumbo is a 59-year-old female with a past medical history of hypertension, diabetes, hypothyroidism, dermoid cyst and hyperlipidemia who was admitted on 05/14/2024 for intractable nausea, vomiting and diarrhea. Patient was recently admitted at [facility] March for evaluation of starvation ketosis, was taken to the ICU for further evaluation, did not require insulin drip and was transferred back to floors for evaluation of tractable nausea and vomiting. Patient was unable to tolerate gastric emptying study in the past, and EGD findings showed reflux esophagitis and was discharged on Reglan and erythromycin p.o. When coming to the ED this time she arrived afebrile and hypertensive. She was worked up and Labs showed WBC 6.8 Hgb 14.1 PLT 284 NA 130 5K2.5 CL 99 bicarb 18.2 anion gap 18 BUN 5 CR 0.9 glucose 104 calcium 10.2 lipase 71 beta hydroxybutyrate 4.6 UA showed 1+ protein 3+ ketones 12 WBC, urine hCG positive. VBG showed a pCO2 of 21 with a base excess of -5. EKG showed sinus rhythm with QTc of 468. The patient received 2.7 L of IV fluids, Zofran and potassium and was admitted for management of intractable nausea and vomiting/starvation ketosis. While on the floors patient was having persistent hypokalemia, despite having not vomited. With the progression of hospital course patient had multiple episodes of vomiting which worsened her hypokalemia, patient continues to receive potassium replacement. A number of agents including promethazine, Reglan, Zofran, erythromycin, Ativan and capsaicin were given to patient to manage her symptoms. Patient has on and off episodes of nausea and vomiting which she said can happen at any time, awakens her from sleep, reports occurring with certain fluids as well. Patient unable to tolerate p.o. medication. GI and neurology were consulted for further evaluation of etiology of persistent nausea, vomiting and diarrhea and newly seen horizontal bilateral nystagmus and blurry vision. Specialist recommendations included symptomatic control and further imaging studies. MRI of C-spine, T-spine and brain were done to look for any ideology such as mass effect, multiple sclerosis or any other pathology that could be affecting brain producing stimulation of vomiting center, but those images were unremarkable. Another cause that was pursued was possible relation of dermoid cyst relation to nausea and vomiting. Oncology was consulted who had recommended patient to get an STATE DIRECTOR consult. STATE DIRECTOR was consulted, recommended tumor markers and MRI of abdomen pelvis. Abdomen pelvis showed a 5.6 x 6.0 fat-containing mass consistent with dermoid tumor which did not require any surgical intervention at the time. Serum tumor markers were obtained including beta-hCG, AFP, CEA, CA125 which were all unremarkable although patient had beta-hCG of 10 in the urine. Patient did report back pain throughout the course of admission, and lumbar MRI was eventually done which showed focal lumbar disc bulges each 5 mm at the L4-L5 and L2-L3 levels, findings most consistent with osteomyelitis discitis L2-L3, L3-L4, and epidural abscess posterior to L1-L5 as above. Case was discussed with radiologist which did suspect epidural abscess, transfer for neurosurgical consult was unsuccessful as patient was asymptomatic. Patient is currently on IV vancomycin, acetazolamide 250 IV twice daily, citric acid/sodium citrate 30 mL p.o. twice daily, D5W 120 cc/h, sliding scale insulin, levothyroxine 175 mcg p.o. ACBR, lidocaine patch as needed, promethazine IV every 6 hours, simethicone as needed. Nephrology consulted for recurrent hypokalemia and metabolic acidosis. Home medications levothyroxine 100 mcg, lovastatin 40 mg, hydrochlorothiazide 25 mg, Metformin 500 mg twice daily, Jardiance 10 mg 05/30/2024: Patient seen and MedSurg, patient reports all of her symptoms started in March, before March she has no similar complaints, she was admitted to the ICU for similar complaints, reported feeling better and was discharged home. She complains that her nausea and vomiting started about 3 days after discharge from hospital in March. Reports multiple visits to the emergency department for same symptoms in the month of April where she was given IV fluids and was discharged on medication, she said that she was never able to take any p.o. medications, cannot tolerate p.o. meds and was not taking them since March ever since her symptoms started. Patient does report poor p.o. intake since March complicated with recurrent nausea and vomiting, today at bedside she reports severe difficulty swallowing solids to all different types of solids, reports that she has an episode of emesis as soon as she tries to swallow. Patient is able to tolerate liquids p.o., reports drinking water and reported drinking Ensure. Patient's diabetes was diagnosed in February earlier this year, she was started on Jardiance and metformin. She denies any sick contacts, any recent travel and she has not been sexually active in the last year. cc:: cc: Clement Frazier MD Review of Systems Review of Systems Narrative Review of Systems: ROS: -CONSTITUTIONAL: Denies fever and chills. Positive for weight loss -HEENT: Denies changes in vision and hearing. -RESPIRATORY: Denies SOB and cough. -CV: Denies palpitations and Chest Pain. -GI: Denies constipation and diarrhea. Positive for abdominal pain, nausea and vomiting. -: Denies dysuria and urinary frequency. -MSK: Denies myalgia and joint pain. -SKIN: Denies rash and pruritus. -NEUROLOGICAL: Denies syncope. Positive for headache. -PSYCHIATRIC: Denies recent changes in mood. Denies anxiety and depression. Past Medical History Past Medical History NEUROLOGIC: Negative Neurological Disorders or Seizures CARDIAC: Positive Hypercholesterolemia and Hypertension; Negative Congestive Heart Failure RESPIRATORY: Negative Respiratory Disorders, Chronic Obstructive Pulmonary Disease (COPD) or Asthma GENITOURINARY: Negative Renal Disease REPRODUCTIVE: Negative Previous Pregnancies MUSCULOSKELETAL: Positive Rheumatoid Arthritis ENDOCRINE: Positive Diabetes Mellitus Type 2 and Hypothyroidism; Negative Diabetes Mellitus Type 1 HEMATOLOGIC: Positive Anemia OTHER HISTORY: Negative Blood Transfusions, Blood Transfusion Reaction (NEVER HAD BLOOD TRANS), Anesthesia Reactions or Cancer Surgical History SURGICAL: Negative Cardiac Surgery or Abdominal Surgery Social History SOCIAL: Denies smoking drinking has been on disability since work related injury involving left ankle earlier this year. SMOKING STATUS: Never smoker SUBSTANCE USE: does not use Past Medical History Comments PMH COMMENT: PMH: Positive for hypertension, diabetes, hypothyroidism, dermoid cyst and hyperlipidemia PSHx: Positive for ankle surgery Allergies: Kiwi (burning pain in mouth) Social history: Patient lives alone, independent ADLs, not no children -Smoking: Denies -Alcohol Use: Reports occasional alcohol use, reported drinking 4 beverages in 1 week -Illicit Drug Use: Denies -Martial Status: Single Family History: Denies any pertinent family history Exam Vital Signs Temp Pulse Resp BP Pulse Ox O2 Del Method 97.7 F 104 H 16 128/72 99 Room Air 05/30/24 12:00 05/30/24 12:00 05/30/24 12:00 05/30/24 12:00 05/30/24 12:00 05/30/24 12:00 Narrative Exam Physical Exam General: Awake and in no acute distress. Conversational and non-toxic appearing. HEENT: Normocephalic, atraumatic, mucous membranes moist. Heart: Regular rate and rhythm, no murmurs. Lungs: Clear to auscultation with no wheezing or crackles. Abdomen: Mild generalized tenderness noted, non-distended no guarding or rebound tenderness. Neurologic: Alert and oriented x3, no gross neurological deficit, and patient able to move all 4 extremities. Extremities: No edema. Skin: No rash or ecchymoses. Results Labs 05/31/24 04:58 05/31/24 04:58 Labs: Short CBC 05/30/24 Range/Units 05:03 WBC 5.1 (3.6-11.0) Thou/mm3 Hgb 7.9 L (12.0-16.0) g/dL Hct 25.2 L (36.0-46.0) % Plt Count 226 (140-440) Thou/mm3 BMP 05/29/24 05/30/24 21:26 05:03 Sodium 147 H 147 H Potassium 3.4 3.2 L Chloride 120 H 119 H Carbon Dioxide 15.6 L 15.0 L BUN 8 L 9 Creatinine 0.8 0.9 Glucose 105 106 Calcium 9.5 9.9 Liver Function 05/29/24 05/30/24 Range/Units 21:26 05:03 Total Bilirubin 0.4 (0.3-1.2) mg/dL AST 40 H (0-34) U/L ALT 16 (10-49) U/L Alkaline Phosphatase 41 L (46-116) U/L Albumin 3.2 L 3.3 L (3.5-5.0) gm/dL ABG Interpretation ABG results: 05/14/24 05/15/24 17:25 16:48 VBG pH 7.49 7.39 VBG pCO2 21 L 28 L VBG pO2 35 43 VBG Base Excess -5 L -7 L Quality Measures Quality Measures VTE prophylaxis (Heparin ) Medications Home Medications and Allergies Home Medications ?Medication ?Instructions ?Recorded ?Confirmed ?Type hydrochlorothiazide 25 mg tablet 25 mg PO QAM 03/25/24 04/18/24 History levothyroxine 125 mcg tablet 125 mcg PO QDAY 03/25/24 04/18/24 History lovastatin 40 mg tablet 40 mg PO QDAY 03/25/24 04/18/24 History Allergies Allergy/AdvReac Type Severity Reaction Status Date / Time No Known Allergies Allergy Verified 05/14/24 17:08 Visit Medications Acetaminophen (Acetaminophen 325 Mg Tablet) 650 mg PO Q4HR PRN PRN Reason: Fever >101 or pain 1-3 Stop: 06/14/24 18:26 Last Admin: 05/29/24 20:22 Dose: 650 mg Citric Acid/Sodium Citrate (Citric Acid/Sodium Citr 15 Ml Udc (Bicitra)) 30 ml PO BID [facility] Stop: 06/26/24 11:29 Last Admin: 05/30/24 08:16 Dose: Not Given Dextrose (Dextrose 50%-Water Inj 50 Ml Syringe) 25 ml IV Q15MIN PRN PRN Reason: BG 50-70 responsive npo pt Stop: 06/14/24 05:01 Dextrose (Dextrose 50%-Water Inj 50 Ml Syringe) 50 ml IV Q15MIN PRN PRN Reason: BG <50 OR BG <70 & pt unresponsive Stop: 06/14/24 05:01 Glucagon (Glucagon Inj 1 Mg Vial) 1 mg IM Q15MIN PRN PRN Reason: BG <70, and no IV access Vancomycin/Sodium Chloride (Vancomycin/Ns 750 Mg Ivpb) 750 mg in 150 mls @ 120 mls/hr IV BID@1000,2200 MEGAN; Protocol Stop: 06/04/24 21:59 Last Admin: 05/30/24 11:28 Dose: 120 mls/hr Ceftriaxone Sodium 2 gm/ (Sodium Chloride) 50 mls @ 100 mls/hr IV Q12HR [facility] Stop: 06/04/24 20:59 Last Admin: 05/30/24 08:13 Dose: 100 mls/hr Promethazine HCl 12.5 mg/ (Sodium Chloride) 50.5 mls @ 2.5 mls/min IV Q6HR [facility] Stop: 06/29/24 00:00 Last Admin: 05/30/24 12:32 Dose: 2.5 mls/min Acetazolamide Sodium 250 mg/ (Sodium Chloride) 50 mls @ 100 mls/hr IV BID [facility] Stop: 06/29/24 20:59 Dextrose (D5w) 1,000 mls @ 120 mls/hr IV .Q8H20M [facility] Stop: 05/30/24 19:34 Last Admin: 05/30/24 12:31 Dose: 120 mls/hr Insulin Human Regular (Insulin Hum Regular 1 Unit/0.01 Ml (Per Unit)) 0 unit SC [facility]; Protocol Stop: 06/20/24 16:59 Last Admin: 05/30/24 08:13 Dose: Not Given Levothyroxine Sodium 125 mcg/ (Levothyroxine Sodium 50 mcg) 175 mcg PO ACBR [facility] Stop: 06/23/24 05:59 Last Admin: 05/30/24 05:25 Dose: 175 mcg Lidocaine (Lidocaine 5% 1 Patch) 1 patch TOP UD PRN; Protocol PRN Reason: PAIN Stop: 06/20/24 09:20 Last Admin: 05/29/24 10:50 Dose: 1 patch Ondansetron HCl (Ondansetron Inj 2 Mg/Ml Inj 2 Ml) 4 mg IV Q6HR PRN; Protocol PRN Reason: NAUSEA OR VOMITING Stop: 06/18/24 09:47 Last Admin: 05/29/24 13:53 Dose: 4 mg Pharmacy Consult (Vancomycin Pharmacy To Dose 1 Each Each) 1 each IV QDAY PRN PRN Reason: CONSULT Stop: 06/21/24 08:59 Simethicone (Simethicone 80 Mg Chew) 80 mg PO QID PRN PRN Reason: GAS Stop: 06/25/24 11:41 Discontinued Medications Acetazolamide (Acetazolamide 250 Mg Tablet) 250 mg PO BID [facility] Stop: 06/22/24 20:59 Last Admin: 05/25/24 09:16 Dose: Not Given Capsaicin (Capsaicin Cr 60 Gm Tube) 0 gm TOP QOD [facility] Stop: 06/19/24 16:14 Last Admin: 05/24/24 09:44 Dose: Not Given Celecoxib (Celecoxib 100 Mg Capsule) 100 mg PO BID [facility] Stop: 06/22/24 13:09 Last Admin: 05/25/24 09:15 Dose: Not Given Citric Acid/Sodium Citrate (Citric Acid/Sodium Citr 15 Ml Udc (Bicitra)) 30 ml PO BID MEGAN Stop: 06/17/24 09:29 Last Admin: 05/23/24 09:31 Dose: Not Given Dexamethasone Sodium Phosphate (Dexamethasone Sod Phos Inj 10 Mg/Ml Vial) 4 mg IV X1 ONE Stop: 05/19/24 11:09 Last Admin: 05/19/24 11:39 Dose: 4 mg Heparin Sodium (Beef Lung) (Heparin Sod Lock Syr 100 Unit/Ml) 500 unit IV X1 ONE Stop: 05/20/24 11:11 Last Admin: 05/20/24 11:10 Dose: 500 unit Heparin Sodium (Porcine) (Heparin Sod Inj 5000 Unit/Ml Vial) 5,000 unit SC Q12HR MEGAN Stop: 05/29/24 08:59 Last Admin: 05/28/24 21:39 Dose: 5,000 unit Sodium Chloride (Ns) 1,000 mls @ 999 mls/hr IV .Q1H1M ONE Stop: 05/14/24 18:31 Last Infusion: 05/14/24 20:22 Dose: Infused Sodium Chloride (Ns) 1,710 mls @ 1,710 mls/hr 30 ml/kg infuse over 60 min (1710 ml) IV .Q1H ONE Stop: 05/14/24 21:13 Last Infusion: 05/14/24 21:20 Dose: Infused Potassium Chloride (Kcl Ivpb) 10 meq in 100 mls @ 100 mls/hr IV Q1H MEGAN Stop: 05/14/24 22:20 Last Infusion: 05/14/24 22:28 Dose: Infused Sodium Chloride (Ns) 1,000 mls @ 100 mls/hr IV .Q10H ONE Stop: 05/15/24 11:29 Last Admin: 05/15/24 01:52 Dose: 100 mls/hr Magnesium Sulfate (Magnesium Sulfate Ivpb) 4 gm in 50 mls @ 12.5 mls/hr IV X1 ONE Stop: 05/15/24 06:57 Last Admin: 05/15/24 03:12 Dose: 12.5 mls/hr Potassium Chloride (Kcl Ivpb) 10 meq in 100 mls @ 100 mls/hr IV Q1H MEGAN Stop: 05/15/24 10:41 Last Admin: 05/15/24 13:38 Dose: 100 mls/hr Erythromycin Lactobionate 250 (mg/ Sodium Chloride) 100 mls @ 100 mls/hr IV Q6HR [facility] Stop: 05/22/24 08:59 Last Admin: 05/19/24 07:50 Dose: 100 mls/hr Potassium Chloride (Kcl Ivpb) 10 meq in 100 mls @ 100 mls/hr IV Q1H [facility] Stop: 05/15/24 20:14 Last Admin: 05/16/24 02:19 Dose: 75 mls/hr Potassium Chloride (Kcl Ivpb) 10 meq in 100 mls @ 100 mls/hr IV Q1H [facility] Stop: 05/16/24 01:14 Last Admin: 05/16/24 03:38 Dose: Not Given Potassium Phosphate (Pot Phos 15 Mmol In Ns 250 Ml) 15 mmol in 250 mls @ 62.5 mls/hr IV X1 ONE Stop: 05/16/24 12:11 Last Infusion: 05/16/24 17:17 Dose: Infused Potassium Chloride (Kcl Ivpb) 10 meq in 100 mls @ 100 mls/hr IV Q1H [facility] Stop: 05/16/24 12:11 Last Infusion: 05/16/24 17:17 Dose: Infused Lactated Ringer's (Lactated Ringers) 1,000 mls @ 75 mls/hr IV .[id number] [facility] Stop: 05/17/24 17:43 Last Admin: 05/17/24 09:10 Dose: 75 mls/hr Potassium Chloride (Kcl Ivpb) 10 meq in 100 mls @ 100 mls/hr IV Q1H [facility] Stop: 05/17/24 03:30 Last Admin: 05/17/24 04:51 Dose: 50 mls/hr Potassium Chloride (Kcl Ivpb) 10 meq in 100 mls @ 100 mls/hr IV Q1H [facility] Stop: 05/17/24 12:28 Last Admin: 05/17/24 16:42 Dose: 100 mls/hr Dextrose/Lactated Ringer's (D5-Lr) 1,000 mls @ 100 mls/hr IV .Q10H [facility] Stop: 06/16/24 09:44 Last Admin: 05/21/24 18:13 Dose: 100 mls/hr Lactated Ringer's (Lactated Ringers) 1,000 mls @ 999 mls/hr IV .Q1H1M ONE Stop: 05/17/24 13:14 Last Admin: 05/17/24 14:55 Dose: 999 mls/hr Promethazine HCl 6.25 mg/ (Sodium Chloride) 50.25 mls @ 2.5 mls/min IV Q6HR [facility] Stop: 06/16/24 20:14 Last Admin: 05/17/24 21:09 Dose: Not Given Promethazine HCl 6.25 mg/ (Sodium Chloride) 50.25 mls @ 2.5 mls/min IV Q6HR MEGAN Stop: 06/16/24 20:29 Last Admin: 05/29/24 18:37 Dose: 2.5 mls/min Potassium Chloride (Kcl Ivpb) 10 meq in 100 mls @ 100 mls/hr IV Q1H ONE Stop: 05/18/24 08:46 Last Admin: 05/18/24 09:25 Dose: 100 mls/hr Sodium Phosphate 15 mmol/ (Sodium Chloride) 255 mls @ 62.5 mls/hr IV X1 ONE Stop: 05/18/24 12:34 Last Admin: 05/18/24 09:26 Dose: 62.5 mls/hr Magnesium Sulfate (Magnesium Sulfate Ivpb) 4 gm in 50 mls @ 12.5 mls/hr IV X1 ONE Stop: 05/18/24 11:47 Last Admin: 05/18/24 09:23 Dose: 12.5 mls/hr Potassium Chloride (Kcl Ivpb) 10 meq in 100 mls @ 100 mls/hr IV Q1H MEGAN Stop: 05/18/24 21:15 Last Admin: 05/18/24 20:47 Dose: 100 mls/hr Potassium Chloride (Kcl Ivpb) 10 meq in 100 mls @ 100 mls/hr IV Q1H MEGAN Stop: 05/19/24 12:10 Last Admin: 05/19/24 16:34 Dose: 100 mls/hr Thiamine HCl 500 mg/ Sodium (Chloride) 105 mls @ 210 mls/hr IV Q8HR MEGAN Stop: 05/22/24 06:29 Last Admin: 05/22/24 06:05 Dose: 210 mls/hr Thiamine HCl 250 mg/ Sodium (Chloride) 102.5 mls @ 205 mls/hr IV QDAY MEGAN Stop: 05/27/24 09:29 Last Admin: 05/27/24 11:01 Dose: 205 mls/hr Potassium Chloride (Kcl Ivpb) 20 meq in 100 mls @ 50 mls/hr IV Q2H MEGAN Stop: 05/21/24 12:35 Last Admin: 05/21/24 10:27 Dose: 50 mls/hr Fat Emulsion-[place] Oil/Soybean Oil (Clinopid 20% Iv) 500 mls @ 32 mls/hr IV SuTuTh@1800 MEGAN Stop: 06/20/24 17:59 Last Admin: 05/28/24 17:22 Dose: 32 mls/hr Potassium Acetate 70 meq/Potassium Phosphate 24 mmol/Magnesium Sulfate 2 gm/Multivitamins/Minerals 10 ml/Amino Acids 1,057 mls @ 30 mls/hr IV QDAY@1800 ONE Stop: 05/22/24 14:59 Last Admin: 05/21/24 18:10 Dose: 30 mls/hr Potassium Chloride (Kcl Ivpb) 10 meq in 100 mls @ 100 mls/hr IV Q1H MEGAN Stop: 05/22/24 07:14 Last Admin: 05/22/24 07:38 Dose: 100 mls/hr Piperacillin/Tazobactam/Dextrose (Zosyn) 3.375 gm in 50 mls @ 100 mls/hr IV X1 ONE Stop: 05/22/24 08:59 Last Admin: 05/22/24 09:39 Dose: 100 mls/hr Piperacillin/Tazobactam/Dextrose (Zosyn) 3.375 gm in 50 mls @ 12.5 mls/hr IV Q8HR MEGAN Stop: 05/29/24 13:59 Last Admin: 05/28/24 07:22 Dose: 12.5 mls/hr Vancomycin/Sodium Chloride (Vancomycin/Ns 1 Gm Ivpb) 200 mls @ 120 mls/hr IV BID@1000,2200 MEGAN; Protocol Stop: 05/29/24 09:14 Last Admin: 05/27/24 22:31 Dose: 120 mls/hr Acetazolamide Sodium 500 mg/ (Sodium Chloride) 50 mls @ 100 mls/hr IV BID MEGAN Stop: 05/22/24 21:29 Last Admin: 05/22/24 20:53 Dose: 100 mls/hr Potassium Acetate 70 meq/Potassium Phosphate 30 mmol/Magnesium Sulfate 2 gm/ Amino Acids 2,049 mls @ 70 mls/hr IV .Q24H MEGAN Stop: 05/23/24 17:59 Last Admin: 05/23/24 15:59 Dose: Not Given Potassium Acetate 80 meq/Potassium Phosphate 30 mmol/Magnesium Sulfate 2 gm/Multivitamins/Minerals 10 ml/Amino Acids 2,064 mls @ 70 mls/hr IV QDAY@1800 MEGAN; Protocol Stop: 05/24/24 17:59 Last Admin: 05/23/24 17:25 Dose: 70 mls/hr Potassium Acetate 80 meq/Potassium Phosphate 30 mmol/Magnesium Sulfate 2 gm/Multivitamins/Minerals 10 ml/Amino Acids 2,064 mls @ 70 mls/hr IV QDAY@1800 MEGAN; Protocol Stop: 05/25/24 17:59 Last Admin: 05/24/24 17:46 Dose: 70 mls/hr Potassium Acetate 80 meq/Potassium Phosphate 30 mmol/Multivitamins/Minerals 10 ml/Amino Acids 2,060 mls @ 69.864 mls/hr IV QDAY@1800 MEGAN; Protocol Stop: 05/26/24 17:59 Last Admin: 05/25/24 17:36 Dose: 69.864 mls/hr Potassium Acetate 80 meq/Potassium Phosphate 30 mmol/Magnesium Sulfate 2 gm/Multivitamins/Minerals 10 ml/Amino Acids 2,064 mls @ 70 mls/hr IV .Q24H MEGAN Stop: 05/27/24 17:59 Last Admin: 05/26/24 18:47 Dose: 70 mls/hr Acetazolamide Sodium 500 mg/ (Sodium Chloride) 50 mls @ 100 mls/hr IV BID MEGAN Stop: 05/28/24 21:00 Last Admin: 05/28/24 08:31 Dose: 100 mls/hr Potassium Acetate 90 meq/Potassium Phosphate 24 mmol/Multivitamins/Minerals 10 ml/Amino Acids 2,063 mls @ 70 mls/hr IV QDAY@1800 MEGAN; Protocol Stop: 05/28/24 17:59 Last Admin: 05/27/24 18:13 Dose: 70 mls/hr Acetazolamide Sodium 500 mg/ (Sodium Chloride) 50 mls @ 100 mls/hr IV X1 ONE Stop: 05/28/24 11:59 Last Admin: 05/28/24 12:28 Dose: 100 mls/hr Acetazolamide Sodium 1,000 mg/ (Sodium Chloride) 50 mls @ 100 mls/hr IV BID MEGAN; Protocol Stop: 05/29/24 09:29 Last Admin: 05/29/24 10:39 Dose: 100 mls/hr Potassium Acetate 80 meq/Multivitamins/Minerals 10 ml/Amino Acids 1,050 mls @ 35 mls/hr IV QDAY@1800 MEGAN; Protocol Stop: 05/29/24 17:59 Last Infusion: 05/29/24 18:23 Dose: 35 mls/hr Potassium Chloride (Kcl Ivpb) 100 mls @ 100 mls/hr IV Q1H MEGAN Stop: 05/29/24 12:59 Last Admin: 05/29/24 18:26 Dose: Not Given Acetazolamide Sodium 1,000 mg/ (Sodium Chloride) 50 mls @ 100 mls/hr IV X1 ONE; Protocol Stop: 05/29/24 11:29 Last Admin: 05/29/24 15:04 Dose: Not Given Acetazolamide Sodium 500 mg/ (Sodium Chloride) 50 mls @ 100 mls/hr IV BID MEGAN Stop: 06/29/24 08:59 Last Admin: 05/30/24 09:31 Dose: 100 mls/hr Potassium Chloride (Kcl Ivpb) 10 meq in 100 mls @ 100 mls/hr IV X1 ONE Stop: 05/29/24 19:20 Last Admin: 05/29/24 18:33 Dose: 100 mls/hr Potassium Chloride (Kcl Ivpb) 10 meq in 100 mls @ 100 mls/hr IV Q1H MEGAN Stop: 05/30/24 15:00 Last Admin: 05/30/24 14:31 Dose: 100 mls/hr Insulin Human Regular (Insulin Hum Regular 1 Unit/0.01 Ml (Per Unit)) 0 unit SC Q6HR MEGAN; Protocol Stop: 06/14/24 05:59 Last Admin: 05/15/24 19:21 Dose: Not Given Insulin Human Regular (Insulin Hum Regular 1 Unit/0.01 Ml (Per Unit)) 0 unit SC [facility]; Protocol Stop: 06/14/24 20:59 Last Admin: 05/20/24 22:22 Dose: Not Given Insulin Human Regular (Insulin Hum Regular 1 Unit/0.01 Ml (Per Unit)) 0 unit SC Q6HR MEGAN; Protocol Stop: 06/20/24 11:59 Last Admin: 05/21/24 12:52 Dose: Not Given Levothyroxine Sodium (Levothyroxine Inj 100 Mcg Vial) 50 mcg IV QAM [facility] Stop: 06/14/24 12:29 Last Admin: 05/23/24 08:51 Dose: 50 mcg Lidocaine (Lidocaine 5% 1 Patch) 1 patch TOP X1 ONE Stop: 05/15/24 18:28 Lidocaine (Lidocaine 5% 1 Patch) 1 patch TOP X1 ONE Stop: 05/16/24 11:59 Last Admin: 05/16/24 12:12 Dose: 1 patch Lidocaine HCl (Lidocaine Inj Pf 1% 30 Ml Vial) 6 ml INFL X1 ONE Stop: 05/20/24 11:11 Last Admin: 05/20/24 11:38 Dose: 6 ml Lorazepam (Lorazepam 0.5 Mg Tablet) 1 mg PO HS MEGAN Stop: 05/26/24 20:59 Last Admin: 05/24/24 20:39 Dose: 1 mg Lorazepam (Lorazepam 0.5 Mg Tablet) 1 mg PO X1 ONE Stop: 05/22/24 21:01 Metoclopramide HCl (Metoclopramide Inj 5 Mg/Ml Vial 2 Ml) 10 mg IVP Q8HR [facility]; Protocol Stop: 06/14/24 05:59 Last Admin: 05/23/24 06:28 Dose: 10 mg Metoclopramide HCl (Metoclopramide Inj 5 Mg/Ml Vial 2 Ml) 5 mg IVP Q8HR PRN; Protocol PRN Reason: Nausea or vomiting Last Admin: 05/15/24 18:06 Dose: 5 mg Metoclopramide HCl (Metoclopramide Inj 5 Mg/Ml Vial 2 Ml) 5 mg IVP Q6HR PRN; Protocol PRN Reason: vomiting Stop: 06/14/24 18:29 Last Admin: 05/17/24 03:54 Dose: 5 mg Metoclopramide HCl (Metoclopramide 5 Mg Tablet) 10 mg PO Q8HR PRN PRN Reason: NAUSEA OR VOMITING Stop: 06/22/24 13:09 Morphine Sulfate (Morphine Sulf Inj 10 Mg/Ml Vial) 2 mg IVP Q4HR PRN PRN Reason: break through pain Stop: 05/27/24 16:18 Morphine Sulfate (Morphine Sulf Inj 10 Mg/Ml Vial) 2 mg IVP Q4HR PRN PRN Reason: break through pain 7-10 Stop: 05/27/24 16:18 Last Admin: 05/23/24 05:29 Dose: 2 mg Ondansetron HCl (Ondansetron Inj 2 Mg/Ml Inj 2 Ml) 4 mg IV X1 ONE; Protocol Stop: 05/14/24 17:32 Last Admin: 05/14/24 19:17 Dose: 4 mg Ondansetron HCl (Ondansetron Inj 2 Mg/Ml Inj 2 Ml) 4 mg IV X1 ONE; Protocol Stop: 05/17/24 08:21 Last Admin: 05/17/24 08:40 Dose: 4 mg Pantoprazole Sodium (Pantoprazole Inj 40 Mg Vial) 40 mg IVP Q12HR MEGAN Stop: 06/14/24 08:59 Last Admin: 05/23/24 08:51 Dose: 40 mg Polyethylene Glycol (Polyethylene Glycol 17 Gm Packet) 17 gm PO DAILY MEGAN Stop: 06/14/24 08:59 Last Admin: 05/18/24 09:37 Dose: Not Given Potassium Chloride (Potassium Chloride 20 Meq Tabcr) 40 meq PO X1 ONE Stop: 05/15/24 05:59 Last Admin: 05/15/24 06:44 Dose: Not Given Potassium Chloride (Potassium Chloride 10% 20 Meq/15 Ml Udc) 40 meq PO X1 ONE Stop: 05/22/24 05:45 Last Admin: 05/22/24 07:41 Dose: Not Given Simethicone (Simethicone 80 Mg Chew) 80 mg PO X1 ONE Stop: 05/26/24 11:43 Last Admin: 05/26/24 12:52 Dose: 80 mg Sodium Bicarbonate (Sodium Bicarb Inj 8.4% 1 Meq/Ml Vial 50 Ml) 50 meq IV X1 ONE Stop: 05/17/24 10:50 Last Admin: 05/17/24 11:44 Dose: 50 meq Sodium Bicarbonate (Sodium Bicarbonate 650 Mg Tablet) 325 mg PO X1 ONE Stop: 05/27/24 11:22 Last Admin: 05/27/24 13:11 Dose: Not Given Assessment & Plan Plan Summary: Ms Palumbo is a 59-year-old female with a past medical history of hypertension, diabetes, hypothyroidism, dermoid cyst and hyperlipidemia who was admitted on 05/14/2024 for intractable nausea, vomiting and diarrhea. Nephrology consulted for recurrent hypokalemia and metabolic acidosis. # Hypokalemia # Metabolic acidosis Patient continues to have recurrent episodes of nausea and vomiting, suspicion of hypokalemia secondary to GI losses. Patient currently on acetazolamide due to suspicion of pseudotumor cerebri, likely causing metabolic acidosis Patient reports episodes of vomiting immediately secondary to swallowing, solids>> liquids. Patient did have swallow study done in the past which the patient was not able to tolerate. Consider barium swallow Consider functional disorder, consider p.o. liquid SSRI. Plan: -Discontinue acetazolamide -Replace potassium as needed -Monitor renal panel in a.m. # Hypernatremia # Hypercalcemia # Dehydration Patient does report she is able to tolerate p.o. liquids, reports drinking water. Encourage p.o. water intake, currently on IV D5W, continue # Hypothyroidism Currently on p.o. levothyroxine 175 mcg, consider switching to IV as patient is not tolerating p.o. #Epidural abscess #Osteomyelitis/discitis Management as per primary team Case discussed with Attending Dr. Hadley. Edin Linton PGY1 Attending Provider Attestation/Addendum Patient seen and examined with resident physician Dr. Linton. Note reviewed, agree with findings and recommendations. Extensive review of the chart. Patient had endoscopy which was not significant. Admits to having swallowing problems since March-moved from [facility]. No family around. She has distant family members in [place]. Currently living alone. Feels aloof with no friends, since March lost more than 50 pounds. Unable to keep any solids down. Medications have been reviewed. Patient going for gastric emptying scan in a.m. Dr. Reardon suspected gastroparesis. Replace potassium, bicarbonate. Patient with a significantly decreased p.o. intake causing intracellular potassium depletion, metabolic acidosis. Metabolic acidosis also compounded by acetazolamide. Reviewed with Dr. Cobb recommendations. I did not think because she has pseudotumor cerebri. Will hold acetazolamide for now. Thank you Clement for allowing me to participate in the care of Ms. Carpio's
--- NOTE | 2024-05-30 15:46 | PC.SS ---
Follow up note: SS spoke to [facility], phone# [phone], [facility] (form[facility] known [facility] in [place] can accept pt and accommodate IV antibiotic, Rocephin 2grm 2 X day until Jul 09, 2023. [facility], phone# [phone] can accommodate IV antibiotic 2 X day but can accept pt on starting Monday06/01/24 Pt is aware and is prefers to stay local in the [place] area.
--- NOTE | 2024-05-30 18:05 | PD.IMPROG ---
Documentation for date of: 05/30/24 Subjective Subjective Interval history: Case discussed with the internal medicine team Nuclear medicine gastric emptying study I will increase the promethazine to 12.5 mg IV push Q6 standing order Exam Vital Signs Temp Pulse Resp BP Pulse Ox O2 Del Method 97.7 F 105 H 16 127/73 99 Room Air 05/30/24 16:00 05/30/24 17:52 05/30/24 16:00 05/30/24 16:00 05/30/24 16:00 05/30/24 16:00 Objective Labs 05/30/24 05:03 05/30/24 05:03 Labs: Laboratory Results - last 24 hr 05/29/24 05/29/24 05/30/24 16:50 21:26 05:03 WBC 5.1 RBC 2.62 L Hgb 7.9 L Hct 25.2 L MCV 96 MCH 30.2 MCHC 31.3 RDW Std Deviation 73.3 H Plt Count 226 Neut % (Auto) 44 Lymph % (Auto) 26 [place] % (Auto) 20 H Eos % (Auto) 9 Baso % (Auto) 1 Neut # (Auto) 2.2 Lymph # (Auto) 1.3 [place] # (Auto) 1.0 H Eos # (Auto) 0.5 Baso # (Auto) 0.1 Immature Gran # (Auto) 0.03 H Absolute Nucleated RBC 0.00 Immature Gran % 1 H Nucleated RBC % 0 Sodium 147 H 147 H Potassium 3.4 3.2 L Chloride 120 H 119 H Carbon Dioxide 15.6 L 15.0 L Anion Gap 11 13 BUN 8 L 9 Creatinine 0.8 0.9 Estim Creat Clear Calc 81.6 72.5 eGFR > 60 > 60 BUN/Creatinine Ratio 10 L 10 L Glucose 105 106 Calculated Osmolality 290 291 Calcium 9.5 9.9 Corrected Calcium 10.1 10.5 H Phosphorus 4.7 5.1 Magnesium 2.2 Total Bilirubin 0.4 AST 40 H ALT 16 Alkaline Phosphatase 41 L Total Protein 5.9 Albumin 3.2 L 3.3 L Globulin 2.6 Albumin/Globulin Ratio 1.3 Stool for White Cells None Seen Vancomycin Trough 05/30/24 09:00 WBC RBC Hgb Hct MCV MCH MCHC RDW Std Deviation Plt Count Neut % (Auto) Lymph % (Auto) [place] % (Auto) Eos % (Auto) Baso % (Auto) Neut # (Auto) Lymph # (Auto) [place] # (Auto) Eos # (Auto) Baso # (Auto) Immature Gran # (Auto) Absolute Nucleated RBC Immature Gran % Nucleated RBC % Sodium Potassium Chloride Carbon Dioxide Anion Gap BUN Creatinine Estim Creat Clear Calc eGFR BUN/Creatinine Ratio Glucose Calculated Osmolality Calcium Corrected Calcium Phosphorus Magnesium Total Bilirubin AST ALT Alkaline Phosphatase Total Protein Albumin Globulin Albumin/Globulin Ratio Stool for White Cells Vancomycin Trough 18.9 H Impressions Impression: # Nausea vomiting not responding to current management Continue IV promethazine 12.5 mg every 6 Gastric emptying nuclear medicine study ABG Interpretation ABG results: 05/14/24 05/15/24 17:25 16:48 VBG pH 7.49 7.39 VBG pCO2 21 L 28 L VBG pO2 35 43 VBG Base Excess -5 L -7 L Assessment & Plan A&P Narrative mild anemia presumptive gastroparesis with controlled dm dermoid tumor hypothyroid htn hld possible epidural abscess with neg cx on empiric vanco/zosyn ideally, this is drained or pt is referred for such so that if the referral is denied, please document any rationale for no intervention so we all can know why that is the case ok to change zosyn to rocephin and vanco to po doxy and see if other meds can be changed to po too. if empiric rx is to be the goal, then use agents that are supported by micro or are easy to use. she likely needs dermoid addressed at some point as well. will not see again unless requested as inpt current abx are more toxic and require more daily doses then alternative empiric rx. favor rocephin 2 gm iv daily and po doxy 100 bid thru 07/09 with weekly cbc, renal panel, esr and line removal at end of rx if process remains, please re visit drainage at end of iv run and extend abx will see prn. f/u with dr Reardon on the tpn. I generally do not provide that rx. Time Spent With Patient Time: Total time spent is greater than 50% in coordination of care (as documented) at patient's floor/unit and/or counseling patient:
[2024-05-30] MEDS: INSULIN HUM REGULAR 1 UNIT/0.01 ML (PER UNIT) SC (18:15)
[2024-05-30 21:26] LABS: Vancomycin,Trough 20.6 mcg/mL (5.0-10.0)
--- NOTE | 2024-05-30 21:45 | PC.NURSE ---
Addendum entered by Wilber Chaves RN 05/30/24 21:48: Dr. Ramon khan to hold 2200 dose of vanco. Original Note: Vanco trough returned 20.6. RN will notify hospitalists to hold 2200 dose.
[2024-05-31] VITALS (7 sets, daily range): BP systolic 123–149; BP diastolic 73–95; PULSE 91–104; RESP 17–19; TEMP 36.2–37; O2SAT 97–99; BMI 32.5
[2024-05-31] MEDS: PROMETHAZINE INJ 12.5 MG in SODIUM CHLORIDE 0.9% 50 ML 2.5 MG IV ×3 (00:04→13:04)
[2024-05-31 05:54] LABS: Basophils # (Auto) 0.1 Thou/mm3 (0.0-0.2); Basophils % (Auto) 1 % (0-2.5); Eosinophils # (Auto) 0.4 Thou/mm3 (0.0-0.5); Eosinophils % (Auto) 8 % (0-10); Hematocrit 24.5 % (36.0-46.0); Immature Granulocytes % (Auto) 0 % (0-0); Immature Granulocytes Auto 0.02 Thou/mm3 (0.00-0.00); Lymphocytes # (Auto) 1.2 Thou/mm3 (1.0-4.8); Lymphocytes % (Auto) 21 % (10-50); Mean Corpuscular HGB Conc 32.2 g/dl (31.0-37.0); Mean Corpuscular Hemoglobin 29.9 pg (25.0-35.0); Mean Corpuscular Volume 93 fL (80-100); Monocytes # (Auto) 1.2 Thou/mm3 (0.0-0.8); Monocytes % (Auto) 22 % (0-12); Neutrophils # (Auto) 2.6 Thou/mm3 (1.8-7.7); Neutrophils % (Auto) 47 % (37-80); Nucleated Red Blood Cell % 0 /100 WBC (0); Platelet Count 265 Thou/mm3 (140-440); RDW Standard Deviation 70.4 fL (36.4-46.3); Red Blood Count 2.64 Miln/mm3 (4.00-5.20); White Blood Count 5.5 Thou/mm3 (3.6-11.0)
[2024-05-31 05:55] LABS: Hemoglobin 7.9 g/dL (12.0-16.0)
[2024-05-31 06:35] LABS: Alanine Aminotransferase 16 U/L (10-49); Albumin, Serum 3.4 gm/dL (3.5-5.0); Albumin/Globulin Ratio 1.4 (1.2-2.2); Alkaline Phosphatase 42 U/L (46-116); Anion Gap 12 (7-16); Aspartate Amino Transferase 34 U/L (0-34); BUN/Creatinine Ratio 6 Ratio (12-20); Bilirubin,Total 0.4 mg/dL (0.3-1.2); Blood Urea Nitrogen < 5 mg/dL (9-23); Calcium 9.5 mg/dL (8.3-10.6); Carbon Dioxide 16.1 mMol/L (20.0-31.0); Chloride 118 mMol/L (98-107); Creatinine (Component) 0.9 mg/dL (0.6-1.3); Estimated Creatinine Clearance 72.5 mL/min (>60); Globulin 2.4 gm/dL (2.3-3.5); Glucose 102 mg/dL (74-106); Magnesium 2.1 mg/dL (1.6-2.6); Osmolality,Calculated 287 (275-295); Phosphorous 5.2 mg/dL (2.4-5.1); Potassium 3.1 mMol/L (3.4-5.1); Sodium 146 mMol/L (136-145); Total Protein 5.8 gm/dL (5.7-8.2); eGFR > 60 See Note
--- NOTE | 2024-05-31 10:57 | PC.NURSE ---
medications late due to pt going to [facility].
--- NOTE | 2024-05-31 11:00 | PD.IMPROG ---
Documentation for date of: 05/31/24 Subjective Subjective Interval history: Case discussed with internal medicine team Nuclear medicine gastric emptying study is normal Discontinue the promethazine 12.5 mg IV push Q6 Promethazine 25 mg p.o. 4 times daily standing order Reglan 5 mg IV push every 6 hours standing order Let us see how she does Exam Vital Signs Temp Pulse Resp BP Pulse Ox O2 Del Method 98 F 91 17 144/79 H 99 Room Air 05/31/24 08:00 05/31/24 08:00 05/31/24 08:00 05/31/24 08:00 05/31/24 08:00 05/31/24 08:00 Objective Labs 05/31/24 04:58 05/31/24 04:58 Labs: Laboratory Results - last 24 hr 05/30/24 05/30/24 05/31/24 09:00 20:43 04:58 WBC 5.5 RBC 2.64 L Hgb 7.9 L Hct 24.5 L MCV 93 MCH 29.9 MCHC 32.2 RDW Std Deviation 70.4 H Plt Count 265 D Neut % (Auto) 47 Lymph % (Auto) 21 [place] % (Auto) 22 H Eos % (Auto) 8 Baso % (Auto) 1 Neut # (Auto) 2.6 Lymph # (Auto) 1.2 [place] # (Auto) 1.2 H Eos # (Auto) 0.4 Baso # (Auto) 0.1 Immature Gran # (Auto) 0.02 H Absolute Nucleated RBC 0.00 Immature Gran % 0 Nucleated RBC % 0 Sodium 146 H Potassium 3.1 L Chloride 118 H Carbon Dioxide 16.1 L Anion Gap 12 BUN < 5 L Creatinine 0.9 Estim Creat Clear Calc 72.5 eGFR > 60 BUN/Creatinine Ratio 6 L Glucose 102 Calculated Osmolality 287 Calcium 9.5 Corrected Calcium 10.0 Phosphorus 5.2 H Magnesium 2.1 Total Bilirubin 0.4 AST 34 ALT 16 Alkaline Phosphatase 42 L Total Protein 5.8 Albumin 3.4 L Globulin 2.4 Albumin/Globulin Ratio 1.4 Vancomycin Trough 18.9 H 20.6 H* Impressions Impression: # Nausea vomiting mostly central in origin As under HPI ABG Interpretation ABG results: 05/14/24 05/15/24 17:25 16:48 VBG pH 7.49 7.39 VBG pCO2 21 L 28 L VBG pO2 35 43 VBG Base Excess -5 L -7 L Assessment & Plan A&P Narrative mild anemia presumptive gastroparesis with controlled dm dermoid tumor hypothyroid htn hld possible epidural abscess with neg cx on empiric vanco/zosyn ideally, this is drained or pt is referred for such so that if the referral is denied, please document any rationale for no intervention so we all can know why that is the case ok to change zosyn to rocephin and vanco to po doxy and see if other meds can be changed to po too. if empiric rx is to be the goal, then use agents that are supported by micro or are easy to use. she likely needs dermoid addressed at some point as well. will not see again unless requested as inpt current abx are more toxic and require more daily doses then alternative empiric rx. favor rocephin 2 gm iv daily and po doxy 100 bid thru 07/09 with weekly cbc, renal panel, esr and line removal at end of rx if process remains, please re visit drainage at end of iv run and extend abx will see prn. f/u with dr Reardon on the tpn. I generally do not provide that rx. Time Spent With Patient Time: Total time spent is greater than 50% in coordination of care (as documented) at patient's floor/unit and/or counseling patient:
[2024-05-31] MEDS: cefTRIAXone 2 GM in SODIUM CHLORIDE 0.9% (P) 50 ML IV ×2 (11:20→20:54)
[2024-05-31] MEDS: MEGESTROL ACET SUSP 400 MG/10 ML UDC PO ×2 (11:20→20:50)
[2024-05-31] MEDS: POTASSIUM CHL 10 mEq IVPB 10 MEQ/100 ML BAG 100 MEQ IV ×4 (11:21→16:24)
--- NOTE | 2024-05-31 11:52 | PC.SS ---
Addendum entered by Aminah Rodrigues 05/31/24 16:17: Pt went to [facility] this morning. Addendum entered by Aminah Rodrigues 05/31/24 15:01: SS has confirmed with Dr. Frazier and resident team patient will require IV antibiotic, Rocephin 2grm 1 X day until Jul 09, 2023. SS has informed Arlene at [facility] who states she has insurance authorization until Jun 05, 2024. Original Note: Follow up note: Pt is requiring IV antibiotic, Rocephin 2grm 2 Xday until Jul 09, 2023. [facility] has insurance authorization for 1 xday until Jun 05, 2024. [facility] ([facility] can accommodate IV antibiotic 2X day. Pt previously requested SNF in [facility].
[2024-05-31] MEDS: LEVOTHYROXINE INJ 100 mCg VIAL 50 MCG IV (13:04)
[2024-05-31] MEDS: VANCOMYCIN/D5W 1,250 MG IVPB 250 ML 120 MG IV (13:42)
--- NOTE | 2024-05-31 14:32 | ESPR_ITS ---
Documentation for date of: 05/31/24 Subjective Subjective Interval history: Ms Palumbo is a 59-year-old female with a past medical history of hypertension, diabetes, hypothyroidism, dermoid cyst and hyperlipidemia who was admitted on 05/14/2024 for intractable nausea, vomiting and diarrhea. Patient was recently admitted at [facility] March for evaluation of starvation ketosis, was taken to the ICU for further evaluation, did not require insulin drip and was transferred back to floors for evaluation of tractable nausea and vomiting. Patient was unable to tolerate gastric emptying study in the past, and EGD findings showed reflux esophagitis and was discharged on Reglan and erythromycin p.o. When coming to the ED this time she arrived afebrile and hypertensive. She was worked up and Labs showed WBC 6.8 Hgb 14.1 PLT 284 NA 130 5K2.5 CL 99 bicarb 18.2 anion gap 18 BUN 5 CR 0.9 glucose 104 calcium 10.2 lipase 71 beta hydroxybutyrate 4.6 UA showed 1+ protein 3+ ketones 12 WBC, urine hCG positive. VBG showed a pCO2 of 21 with a base excess of -5. EKG showed sinus rhythm with QTc of 468. The patient received 2.7 L of IV fluids, Zofran and potassium and was admitted for management of intractable nausea and vomiting/starvation ketosis. While on the floors patient was having persistent hypokalemia, despite having not vomited. With the progression of hospital course patient had multiple episodes of vomiting which worsened her hypokalemia, patient continues to receive potassium replacement. A number of agents including promethazine, Reglan, Zofran, erythromycin, Ativan and capsaicin were given to patient to manage her symptoms. Patient has on and off episodes of nausea and vomiting which she said can happen at any time, awakens her from sleep, reports occurring with certain fluids as well. Patient unable to tolerate p.o. medication. GI and neurology were consulted for further evaluation of etiology of persistent nausea, vomiting and diarrhea and newly seen horizontal bilateral nystagmus and blurry vision. Specialist recommendations included symptomatic control and further imaging studies. MRI of C-spine, T-spine and brain were done to look for any ideology such as mass effect, multiple sclerosis or any other pathology that could be affecting brain producing stimulation of vomiting center, but those images were unremarkable. Another cause that was pursued was possible relation of dermoid cyst relation to nausea and vomiting. Oncology was consulted who had recommended patient to get an HIGHER LEVEL TEACHING ASSISTANT consult. HIGHER LEVEL TEACHING ASSISTANT was consulted, recommended tumor markers and MRI of abdomen pelvis. Abdomen pelvis showed a 5.6 x 6.0 fat-containing mass consistent with dermoid tumor which did not require any surgical intervention at the time. Serum tumor markers were obtained including beta-hCG, AFP, CEA, CA125 which were all unremarkable although patient had beta-hCG of 10 in the urine. Patient did report back pain throughout the course of admission, and lumbar MRI was eventually done which showed focal lumbar disc bulges each 5 mm at the L4-L5 and L2-L3 levels, findings most consistent with osteomyelitis discitis L2-L3, L3-L4, and epidural abscess posterior to L1-L5 as above. Case was discussed with radiologist which did suspect epidural abscess, transfer for neurosurgical consult was unsuccessful as patient was asymptomatic. Patient is currently on IV vancomycin, acetazolamide 250 IV twice daily, citric acid/sodium citrate 30 mL p.o. twice daily, D5W 120 cc/h, sliding scale insulin, levothyroxine 175 mcg p.o. ACBR, lidocaine patch as needed, promethazine IV every 6 hours, simethicone as needed. Nephrology consulted for recurrent hypokalemia and metabolic acidosis. Home medications levothyroxine 100 mcg, lovastatin 40 mg, hydrochlorothiazide 25 mg, Metformin 500 mg twice daily, Jardiance 10 mg 05/30/2024: Patient seen and MedSurg, patient reports all of her symptoms started in March, before March she has no similar complaints, she was admitted to the ICU for similar complaints, reported feeling better and was discharged home. She complains that her nausea and vomiting started about 3 days after discharge from hospital in March. Reports multiple visits to the emergency department for same symptoms in the month of April where she was given IV fluids and was discharged on medication, she said that she was never able to take any p.o. medications, cannot tolerate p.o. meds and was not taking them since March ever since her symptoms started. Patient does report poor p.o. intake since March complicated with recurrent nausea and vomiting, today at bedside she reports severe difficulty swallowing solids to all different types of solids, reports that she has an episode of emesis as soon as she tries to swallow. Patient is able to tolerate liquids p.o., reports drinking water and reported drinking Ensure. Patient's diabetes was diagnosed in February earlier this year, she was started on Jardiance and metformin. She denies any sick contacts, any recent travel and she has not been sexually active in the last year. 05/31/2024: Patient seen at bedside, patient complains of nausea/vomiting right after swallowing. Talked to the patient in detail, patient has no family in [place] recently moved from [facility], possible component of depression, consider functional disorder. Patient is scheduled for gastric emptying study nuclear medicine scan today. Patient will be given 1 amp of bicarb, recommend starting patient on Megace and SSRI to treat possible underlying functional cause. Exam Vital Signs Temp Pulse Resp BP Pulse Ox O2 Del Method 97.2 F 99 19 139/77 H 98 Room Air 05/31/24 11:53 05/31/24 12:00 05/31/24 11:53 05/31/24 11:53 05/31/24 11:53 05/31/24 11:53 Narrative Exam Physical Exam General: Awake and in no acute distress. Conversational and non-toxic appearing. HEENT: Normocephalic, atraumatic, mucous membranes moist. Heart: Regular rate and rhythm, no murmurs. Lungs: Clear to auscultation with no wheezing or crackles. Abdomen: Mild generalized tenderness noted, non-distended no guarding or rebound tenderness. Neurologic: Alert and oriented x3, no gross neurological deficit, and patient able to move all 4 extremities. Extremities: No edema. Skin: No rash or ecchymoses. Objective Labs 05/31/24 04:58 05/31/24 04:58 Labs: Laboratory Results - last 24 hr 05/30/24 05/31/24 20:43 04:58 WBC 5.5 RBC 2.64 L Hgb 7.9 L Hct 24.5 L MCV 93 MCH 29.9 MCHC 32.2 RDW Std Deviation 70.4 H Plt Count 265 D Neut % (Auto) 47 Lymph % (Auto) 21 [place] % (Auto) 22 H Eos % (Auto) 8 Baso % (Auto) 1 Neut # (Auto) 2.6 Lymph # (Auto) 1.2 [place] # (Auto) 1.2 H Eos # (Auto) 0.4 Baso # (Auto) 0.1 Immature Gran # (Auto) 0.02 H Absolute Nucleated RBC 0.00 Immature Gran % 0 Nucleated RBC % 0 Sodium 146 H Potassium 3.1 L Chloride 118 H Carbon Dioxide 16.1 L Anion Gap 12 BUN < 5 L Creatinine 0.9 Estim Creat Clear Calc 72.5 eGFR > 60 BUN/Creatinine Ratio 6 L Glucose 102 Calculated Osmolality 287 Calcium 9.5 Corrected Calcium 10.0 Phosphorus 5.2 H Magnesium 2.1 Total Bilirubin 0.4 AST 34 ALT 16 Alkaline Phosphatase 42 L Total Protein 5.8 Albumin 3.4 L Globulin 2.4 Albumin/Globulin Ratio 1.4 Vancomycin Trough 20.6 H* ABG Interpretation ABG results: 05/14/24 05/15/24 17:25 16:48 VBG pH 7.49 7.39 VBG pCO2 21 L 28 L VBG pO2 35 43 VBG Base Excess -5 L -7 L Quality Measures Quality Measures VTE prophylaxis (Heparin ) Assessment & Plan Assessment Current Active Medications: Generic Name Dose Route Start Last Admin Trade Name Freq PRN Reason Stop Dose Admin Acetaminophen 650 mg 05/15/24 18:27 05/29/24 20:22 Acetaminophen 325 Mg Tablet PO 06/14/24 18:26 650 mg Q4HR PRN Administration Fever >101 or pain 1-3 Citric Acid/Sodium Citrate 30 ml 05/27/24 11:30 05/31/24 11:21 Citric Acid/Sodium Citr 15 Ml Udc (Bicitra) PO 06/26/24 11:29 Not Given BID MEGAN Dextrose 25 ml 05/15/24 05:02 Dextrose 50%-Water Inj 50 Ml Syringe IV 06/14/24 05:01 Q15MIN PRN BG 50-70 responsive npo pt Dextrose 50 ml 05/15/24 05:02 Dextrose 50%-Water Inj 50 Ml Syringe IV 06/14/24 05:01 Q15MIN PRN BG <50 OR BG <70 & pt unresponsive Glucagon 1 mg 05/15/24 05:02 Glucagon Inj 1 Mg Vial IM Q15MIN PRN BG <70, and no IV access Ceftriaxone Sodium 2 gm/ 50 mls @ 100 mls/hr 05/28/24 21:00 05/31/24 14:28 Sodium Chloride IV 06/04/24 20:59 Infused Q12HR MEGAN Infusion Vancomycin HCl/Dextrose 250 mls @ 120 mls/hr 05/31/24 10:00 05/31/24 13:42 Vancomycin/D5w 1,250 Mg Ivpb IV 06/07/24 09:59 120 mls/hr QDAY@1000 MEGAN Administration Insulin Human Regular 0 unit 05/21/24 17:00 05/31/24 12:11 Insulin Hum Regular 1 Unit/0.01 Ml (Per Unit) SC 06/20/24 16:59 Not Given ACHS MEGAN Protocol Levothyroxine Sodium 50 mcg 05/31/24 09:00 05/31/24 13:04 Levothyroxine Inj 100 Mcg Vial IV 06/30/24 08:59 50 mcg QDAY MEGAN Administration Lidocaine 1 patch 05/21/24 09:21 05/29/24 10:50 Lidocaine 5% 1 Patch TOP 06/20/24 09:20 1 patch UD PRN Administration PAIN Protocol Megestrol Acetate 400 mg 05/31/24 09:15 05/31/24 11:20 Megestrol Acet Susp 400 Mg/10 Ml Udc PO 06/30/24 09:14 400 mg BID MEGAN Administration Metoclopramide HCl 5 mg 05/31/24 18:00 Metoclopramide Inj 5 Mg/Ml Vial 2 Ml IVP 06/30/24 17:59 Q6HR MEGAN Protocol Ondansetron HCl 4 mg 05/19/24 09:48 05/29/24 13:53 Ondansetron Inj 2 Mg/Ml Inj 2 Ml IV 06/18/24 09:47 4 mg Q6HR PRN Administration NAUSEA OR VOMITING Protocol Pharmacy Consult 1 each 05/22/24 09:00 Vancomycin Pharmacy To Dose 1 Each Each IV 06/21/24 08:59 QDAY PRN CONSULT Promethazine HCl 25 mg 05/31/24 13:15 Promethazine Hcl 25 Mg Tablet PO 06/30/24 13:14 Q6HR MEGAN Sertraline HCl 50 mg 05/31/24 21:00 Sertraline Hcl 25 Mg Tablet PO 06/30/24 20:59 HS MEGAN Simethicone 80 mg 05/26/24 11:42 Simethicone 80 Mg Chew PO 06/25/24 11:41 QID PRN GAS Plan Summary: Ms Palumbo is a 59-year-old female with a past medical history of hypertension, diabetes, hypothyroidism, dermoid cyst and hyperlipidemia who was admitted on 05/14/2024 for intractable nausea, vomiting and diarrhea. Nephrology consulted for recurrent hypokalemia and metabolic acidosis. # Hypokalemia # Metabolic acidosis Patient continues to have recurrent episodes of nausea and vomiting, suspicion of hypokalemia secondary to GI losses. Patient currently on acetazolamide due to suspicion of pseudotumor cerebri, likely causing metabolic acidosis Patient reports episodes of vomiting immediately secondary to swallowing, solids>> liquids. Patient did have swallow study done in the past which the patient was not able to tolerate. Consider barium swallow Consider functional disorder, consider p.o. liquid SSRI. Plan: -Patient will be given an amp of bicarb -Discontinued acetazolamide -Replace potassium as needed -Monitor renal panel in a.m. -Monitor bicarb in a.m. # Hypernatremia # Hypercalcemia # Dehydration Patient does report she is able to tolerate p.o. liquids, reports drinking water. Encourage p.o. water intake. # Hypothyroidism Currently on p.o. levothyroxine 175 mcg, consider switching to IV as patient is not tolerating p.o. #Epidural abscess #Osteomyelitis/discitis Management as per primary team Case discussed with Attending Dr. Hadley. Edin Linton PGY1 Attending Provider Attestation/Addendum Patient seen and examined with resident physician Dr. Linton. Note reviewed, agree with findings and recommendations. Extensive review of the chart. Patient had endoscopy which was not significant. Admits to having swallowing problems since March-moved from [facility]. No family around. She has distant family members in [place]. Currently living alone. Feels aloof with no friends, since March lost more than 50 pounds. Unable to keep any solids down. Medications have been reviewed. Patient going for gastric emptying scan in a.m. Dr. Reardon suspected gastroparesis. Replace potassium, bicarbonate. Patient with a significantly decreased p.o. intake causing intracellular potassium depletion, metabolic acidosis. Metabolic acidosis also compounded by acetazolamide. Reviewed with Dr. Cobb recommendations. I did not think because she has pseudotumor cerebri. Will hold acetazolamide for now. 05/31/2024 gastric emptying scan came back normal. After speaking to the patient for more than 30 minutes-suspect patient seems to have some component of somatization for nausea. She seems to be very depressed. Took liberty of starting patient on SSRI at a low dose along with Megace. Patient seems to have no problem with the swallowing liquids. She did swallow water in front of me. Plan of care discussed with primary team.
[2024-05-31] MEDS: PROMETHAZINE HCL 25 MG TABLET PO ×2 (14:33→23:46)
[2024-05-31] MEDS: ACETAMINOPHEN 325 MG TABLET 650 MG PO (14:37)
--- NOTE | 2024-05-31 15:49 | ESPR_ITS ---
<Statement entered by Иван Boland MD - 05/31/24 18:58> Patient was seen and examined at bedside, patient reported that she still vomit however she reported that she does not vomit from water, apple juice, or Ensure clear. Will order for the patient gastric emptying study in which she showed normal results. Patient has periodic episodes of vomiting we discussed the results with solution lead Dr. Reardon in which she recommended to start the patient on promethazine p.o. and Reglan 5 mg IV. Tomorrow we will have discussion with the solution lead for possible referral to a GI motility disorder specialist. Nephrology team was consulted they recommended to get the patient sodium bicarb to adjust her acid-base balance and replete electrolytes as needed. Nephrology team also recommended start the patient on Zoloft and also make a strong a monitor at that can also help improving her symptoms. - Patient's plan and care discussed with my attending, Dr. Freddie Boland MD Internal Medicine PGY-2 Documentation for date of: 05/31/24 Subjective Subjective Interval history: Patient seen at bedside today. Patient reports that she experienced some vomiting with and without eating today. Also notes that she still has some diarrhea today. Was able to tolerate the gastric emptying test. Complains of some back pain, was wondering if she can get a patch for her back. Exam Vital Signs Temp Pulse Resp BP Pulse Ox O2 Del Method 97.2 F 99 19 139/77 H 98 Room Air 05/31/24 11:53 05/31/24 12:00 05/31/24 11:53 05/31/24 11:53 05/31/24 11:53 05/31/24 11:53 Narrative Exam General: AAOx3, NAD, HEENT: Dry mucous membranes, conjunctiva clear, EOMI, PERRLA, Cardiovascular: S1, S2, radial pulses +2 bilat, RRR Pulmonary: CTAB bilat no cough, no wheezing GI: Slight tenderness to light palpitation, no guarding, rigidity, rebound tenderness or distension, bowel sounds present Extremities: No presence of trace or pitting edema in lower extremities bilaterally, dorsalis pedis pulses +2 bilaterally, L upper hand in site of IV erythematous and TTP Neuro: AAOx3, resting tremor in UE bilat Psych: Good judgement, thought and behavior. Cooperative Objective Labs 06/01/24 04:37 06/01/24 04:37 Labs: Laboratory Results - last 24 hr 05/30/24 05/31/24 20:43 04:58 WBC 5.5 RBC 2.64 L Hgb 7.9 L Hct 24.5 L MCV 93 MCH 29.9 MCHC 32.2 RDW Std Deviation 70.4 H Plt Count 265 D Neut % (Auto) 47 Lymph % (Auto) 21 [place] % (Auto) 22 H Eos % (Auto) 8 Baso % (Auto) 1 Neut # (Auto) 2.6 Lymph # (Auto) 1.2 [place] # (Auto) 1.2 H Eos # (Auto) 0.4 Baso # (Auto) 0.1 Immature Gran # (Auto) 0.02 H Absolute Nucleated RBC 0.00 Immature Gran % 0 Nucleated RBC % 0 Sodium 146 H Potassium 3.1 L Chloride 118 H Carbon Dioxide 16.1 L Anion Gap 12 BUN < 5 L Creatinine 0.9 Estim Creat Clear Calc 72.5 eGFR > 60 BUN/Creatinine Ratio 6 L Glucose 102 Calculated Osmolality 287 Calcium 9.5 Corrected Calcium 10.0 Phosphorus 5.2 H Magnesium 2.1 Total Bilirubin 0.4 AST 34 ALT 16 Alkaline Phosphatase 42 L Total Protein 5.8 Albumin 3.4 L Globulin 2.4 Albumin/Globulin Ratio 1.4 Vancomycin Trough 20.6 H* ABG Interpretation ABG results: 05/14/24 05/15/24 17:25 16:48 VBG pH 7.49 7.39 VBG pCO2 21 L 28 L VBG pO2 35 43 VBG Base Excess -5 L -7 L Quality Measures Quality Measures VTE prophylaxis (Heparin ) Assessment & Plan Assessment Current Active Medications: Generic Name Dose Route Start Last Admin Trade Name Freq PRN Reason Stop Dose Admin Acetaminophen 650 mg 05/15/24 18:27 05/31/24 14:37 Acetaminophen 325 Mg Tablet PO 06/14/24 18:26 650 mg Q4HR PRN Administration Fever >101 or pain 1-3 Citric Acid/Sodium Citrate 30 ml 05/27/24 11:30 05/31/24 11:21 Citric Acid/Sodium Citr 15 Ml Udc (Bicitra) PO 06/26/24 11:29 Not Given BID MEGAN Dextrose 25 ml 05/15/24 05:02 Dextrose 50%-Water Inj 50 Ml Syringe IV 06/14/24 05:01 Q15MIN PRN BG 50-70 responsive npo pt Dextrose 50 ml 05/15/24 05:02 Dextrose 50%-Water Inj 50 Ml Syringe IV 06/14/24 05:01 Q15MIN PRN BG <50 OR BG <70 & pt unresponsive Glucagon 1 mg 05/15/24 05:02 Glucagon Inj 1 Mg Vial IM Q15MIN PRN BG <70, and no IV access Ceftriaxone Sodium 2 gm/ 50 mls @ 100 mls/hr 05/28/24 21:00 05/31/24 14:28 Sodium Chloride IV 06/04/24 20:59 Infused Q12HR MEGAN Infusion Vancomycin HCl/Dextrose 250 mls @ 120 mls/hr 05/31/24 10:00 05/31/24 13:42 Vancomycin/D5w 1,250 Mg Ivpb IV 06/07/24 09:59 120 mls/hr QDAY@1000 MEGAN Administration Insulin Human Regular 0 unit 05/21/24 17:00 05/31/24 12:11 Insulin Hum Regular 1 Unit/0.01 Ml (Per Unit) SC 06/20/24 16:59 Not Given ACHS MEGAN Protocol Levothyroxine Sodium 50 mcg 05/31/24 09:00 05/31/24 13:04 Levothyroxine Inj 100 Mcg Vial IV 06/30/24 08:59 50 mcg QDAY MEGAN Administration Lidocaine 1 patch 05/21/24 09:21 05/29/24 10:50 Lidocaine 5% 1 Patch TOP 06/20/24 09:20 1 patch UD PRN Administration PAIN Protocol Megestrol Acetate 400 mg 05/31/24 09:15 05/31/24 11:20 Megestrol Acet Susp 400 Mg/10 Ml Udc PO 06/30/24 09:14 400 mg BID MEGAN Administration Metoclopramide HCl 5 mg 05/31/24 18:00 Metoclopramide Inj 5 Mg/Ml Vial 2 Ml IVP 06/30/24 17:59 Q6HR MEGAN Protocol Ondansetron HCl 4 mg 05/19/24 09:48 05/29/24 13:53 Ondansetron Inj 2 Mg/Ml Inj 2 Ml IV 06/18/24 09:47 4 mg Q6HR PRN Administration NAUSEA OR VOMITING Protocol Pharmacy Consult 1 each 05/22/24 09:00 Vancomycin Pharmacy To Dose 1 Each Each IV 06/21/24 08:59 QDAY PRN CONSULT Promethazine HCl 25 mg 05/31/24 13:15 05/31/24 14:33 Promethazine Hcl 25 Mg Tablet PO 06/30/24 13:14 25 mg Q6HR MEGAN Administration Sertraline HCl 50 mg 05/31/24 21:00 Sertraline Hcl 25 Mg Tablet PO 06/30/24 20:59 HS MEGAN Simethicone 80 mg 05/26/24 11:42 Simethicone 80 Mg Chew PO 06/25/24 11:41 QID PRN GAS Plan 59-year-old female with a past medical history of hypertension, diabetes, hypothyroidism and hyperlipidemia who presented to the ED on 05/14/2024 with abdominal pain, nausea and vomiting that has persisted over the last 2 months. The patient has been admitted for management of intractable nausea and vomiting, starvation ketosis. Patient on imaging was found to have spinal epidural abscess with multiple attempts to transfer the patient to a nursing care various institutions infiltrative patient and recommend conservative management. #Intractable nausea and vomiting #? atypical pseudotumor cerebri #? Depression related nausea vomiting Patient with diplopia/blurry vision and headache raising suspicion for pseudotumor cerebri subsequently started on acetazolamide with improvement Lumbar puncture unable to be done due to spinal epidural abscess Patient currently on PPN and clear liquid diet Spoke to neurology Dr Hernandez, states this may be atypical visitation of the arrhythmia , recommends to continue Diamox see patient improves, we cannot do LP at this time because of epidural abscess. Will continue with Diamox to see if patient's symptoms improve, if improved, patient likely has pseudotumor cerebri Turned off TPN, patient is still vomiting At this point we will retry for gastric emptying study to see if there is a motility issue Spoke with Dr. Reardon, wants to proceed with gastric emptying study and go from there for further imaging/workup for possible transfer And concerns with pseudotumor cerebri, cannot perform LP until epidural resolves and patient will need 6 weeks of antibiotics Gastric emptying study shows normal motility Spoke with GI, recommends new antiemetic regimen before considering other workup Nephrology thinks that patient may have nausea and vomiting related to depression Pt is able to tolerate water, clear ensure and apple juice, but nothing else, vomits from any food especially eggs Plan: -Discontinue Diamox to 250 mg twice daily -Zofran as needed -*Reglan 5 mg IV every 6 hours ?*Promethazine 25 mg p.o. every 6 hours -*Encourage p.o. intake as tolerated, Megace added by nephrology ?*Zoloft started by nephrology -Neurology on case appreciate recommendations -GI on the case appreciate recommendations #Epidural abscess #Osteomyelitis/discitis Found on lumbar MRI Discussed case with multiple institutions rejected the case recommended conservative management Will continue trying to send the patient for neurosurgical evaluation Currently, patient denies any lower extremity weakness, saddle anesthesia and denies any fecal or urinary incontinence ID recommends for pt to have drainage of abscess at some point ID recommends 2 g daily Rocephin and doxycycline, however patient cannot take doxycycline as she already has GI upset Will eventually adjust rocephin 2g daily once pt is d/c to SNF Plan: -On IV vancomycin, and Rocephin 2g IV BID -ID consulted, appreciate recommendations -Continue to pursue transfer #Metabolic acidosis Likely secondary to acetazolamide Current bicarb ~16 Plan: ?Nephrology on consult, appreciate recs ?Discontinue Diamox ?Bicarb 8.4 50 mL x1 #Electrolyte abnormalities #Hypokalemia secondary to #GI losses #Diarrhea Plan: ?Replete as needed ?Treat as above with antiemetics ?As above #Type 2 diabetes mellitus A1c 6.8 -on insulin sliding scale #Hypothyroidism Patient noted to have TSH of 75 however T4 at 0.76 ?Synthroid 175 mcg p.o. #Health Maintenance Disposition: Medsurg DVT prophylaxis: Heparin GI prophylaxis: Simethicone Diet: Clear liquid diet and PPN CODE STATUS: Full Patient seen and care discussed with my senior resident, Dr. Boland, and my attending physician, Dr. Freddie Solorio, PGY-1 Attending Provider Attestation/Addendum I have examined the patient, reviewed labs and imaging findings, discussed the case with the resident(s), and reviewed entered orders. I agree with the plan of care as outlined in this note. Dr. Frazier
[2024-05-31] MEDS: METOCLOPRAMIDE INJ 5 MG/ML VIAL 2 ML IVP ×2 (17:23→23:46)
[2024-05-31] MEDS: Sodium Bicarb Inj 8.4% SYR 50 ML SYRINGE IV (19:20)
[2024-05-31] MEDS: SERTRALINE HCL 25 MG TABLET 50 MG PO (20:51)
[2024-05-31] MEDS: LIDOCAINE 5% 1 PATCH TOP (21:07)
[2024-05-31] MEDS: ONDANSETRON INJ 2 MG/ML INJ 2 ML 4 MG IV (23:50)
[2024-06-01] VITALS: BP 143/90; PULSE 108; RESP 21; TEMP 36.4; O2SAT 99
[2024-06-01 04:00] VITALS: BP 137/80; PULSE 99; RESP 17; TEMP 36.7; O2SAT 99
[2024-06-01] MEDS: METOCLOPRAMIDE INJ 5 MG/ML VIAL 2 ML IVP ×3 (05:19→17:44)
[2024-06-01 05:26] LABS: Basophils # (Auto) 0.1 Thou/mm3 (0.0-0.2); Basophils % (Auto) 1 % (0-2.5); Eosinophils # (Auto) 0.4 Thou/mm3 (0.0-0.5); Eosinophils % (Auto) 5 % (0-10); Hematocrit 25.4 % (36.0-46.0); Immature Granulocytes % (Auto) 0 % (0-0); Immature Granulocytes Auto 0.03 Thou/mm3 (0.00-0.00); Lymphocytes # (Auto) 1.6 Thou/mm3 (1.0-4.8); Lymphocytes % (Auto) 24 % (10-50); Mean Corpuscular HGB Conc 32.7 g/dl (31.0-37.0); Mean Corpuscular Hemoglobin 30.6 pg (25.0-35.0); Mean Corpuscular Volume 94 fL (80-100); Monocytes # (Auto) 1.1 Thou/mm3 (0.0-0.8); Monocytes % (Auto) 16 % (0-12); Neutrophils # (Auto) 3.7 Thou/mm3 (1.8-7.7); Neutrophils % (Auto) 54 % (37-80); Nucleated Red Blood Cell % 0 /100 WBC (0); Platelet Count 300 Thou/mm3 (140-440); RDW Standard Deviation 70.8 fL (36.4-46.3); Red Blood Count 2.71 Miln/mm3 (4.00-5.20); White Blood Count 6.8 Thou/mm3 (3.6-11.0)
[2024-06-01 05:47] LABS: Hemoglobin 8.3 g/dL (12.0-16.0)
[2024-06-01 05:49] LABS: Alanine Aminotransferase 20 U/L (10-49); Albumin/Globulin Ratio 1.4 (1.2-2.2); Alkaline Phosphatase 51 U/L (46-116); Anion Gap 12 (7-16); Aspartate Amino Transferase 33 U/L (0-34); BUN/Creatinine Ratio 6 Ratio (12-20); Bilirubin,Total 0.5 mg/dL (0.3-1.2); Blood Urea Nitrogen < 5 mg/dL (9-23); Calcium 9.7 mg/dL (8.3-10.6); Calcium (Corrected) 9.7 mg/dL (8.5-10.1); Chloride 117 mMol/L (98-107); Creatinine (Component) 0.9 mg/dL (0.6-1.3); Estimated Creatinine Clearance 72.5 mL/min (>60); Globulin 2.8 gm/dL (2.3-3.5); Glucose 110 mg/dL (74-106); Magnesium 2.2 mg/dL (1.6-2.6); Osmolality,Calculated 290 (275-295); Potassium 3.1 mMol/L (3.4-5.1); Sodium 147 mMol/L (136-145); Total Protein 6.8 gm/dL (5.7-8.2); eGFR > 60 See Note
[2024-06-01 08:00] VITALS: BP 135/78; PULSE 108; PULSE 97; RESP 18; TEMP 36.4; O2SAT 97
[2024-06-01] MEDS: cefTRIAXone 2 GM in SODIUM CHLORIDE 0.9% (P) 50 ML IV ×2 (08:51→22:13)
[2024-06-01] MEDS: MEGESTROL ACET SUSP 400 MG/10 ML UDC PO ×2 (08:54→22:13)
[2024-06-01] MEDS: LEVOTHYROXINE INJ 100 mCg VIAL 50 MCG IV (08:54)
[2024-06-01] MEDS: POTASSIUM CHL 10 mEq IVPB 10 MEQ/100 ML BAG 100 MEQ IV ×8 (08:55→18:54)
--- NOTE | 2024-06-01 09:46 | ESPR_ITS ---
Documentation for date of: 06/01/24 Subjective Subjective Interval history: Ms Palumbo is a 59-year-old female with a past medical history of hypertension, diabetes, hypothyroidism, dermoid cyst and hyperlipidemia who was admitted on 05/14/2024 for intractable nausea, vomiting and diarrhea. Patient was recently admitted at [facility] March for evaluation of starvation ketosis, was taken to the ICU for further evaluation, did not require insulin drip and was transferred back to floors for evaluation of tractable nausea and vomiting. Patient was unable to tolerate gastric emptying study in the past, and EGD findings showed reflux esophagitis and was discharged on Reglan and erythromycin p.o. When coming to the ED this time she arrived afebrile and hypertensive. She was worked up and Labs showed WBC 6.8 Hgb 14.1 PLT 284 NA 130 5K2.5 CL 99 bicarb 18.2 anion gap 18 BUN 5 CR 0.9 glucose 104 calcium 10.2 lipase 71 beta hydroxybutyrate 4.6 UA showed 1+ protein 3+ ketones 12 WBC, urine hCG positive. VBG showed a pCO2 of 21 with a base excess of -5. EKG showed sinus rhythm with QTc of 468. The patient received 2.7 L of IV fluids, Zofran and potassium and was admitted for management of intractable nausea and vomiting/starvation ketosis. While on the floors patient was having persistent hypokalemia, despite having not vomited. With the progression of hospital course patient had multiple episodes of vomiting which worsened her hypokalemia, patient continues to receive potassium replacement. A number of agents including promethazine, Reglan, Zofran, erythromycin, Ativan and capsaicin were given to patient to manage her symptoms. Patient has on and off episodes of nausea and vomiting which she said can happen at any time, awakens her from sleep, reports occurring with certain fluids as well. Patient unable to tolerate p.o. medication. GI and neurology were consulted for further evaluation of etiology of persistent nausea, vomiting and diarrhea and newly seen horizontal bilateral nystagmus and blurry vision. Specialist recommendations included symptomatic control and further imaging studies. MRI of C-spine, T-spine and brain were done to look for any ideology such as mass effect, multiple sclerosis or any other pathology that could be affecting brain producing stimulation of vomiting center, but those images were unremarkable. Another cause that was pursued was possible relation of dermoid cyst relation to nausea and vomiting. Oncology was consulted who had recommended patient to get an GEOPHYSICAL ENGINEER consult. GEOPHYSICAL ENGINEER was consulted, recommended tumor markers and MRI of abdomen pelvis. Abdomen pelvis showed a 5.6 x 6.0 fat-containing mass consistent with dermoid tumor which did not require any surgical intervention at the time. Serum tumor markers were obtained including beta-hCG, AFP, CEA, CA125 which were all unremarkable although patient had beta-hCG of 10 in the urine. Patient did report back pain throughout the course of admission, and lumbar MRI was eventually done which showed focal lumbar disc bulges each 5 mm at the L4-L5 and L2-L3 levels, findings most consistent with osteomyelitis discitis L2-L3, L3-L4, and epidural abscess posterior to L1-L5 as above. Case was discussed with radiologist which did suspect epidural abscess, transfer for neurosurgical consult was unsuccessful as patient was asymptomatic. Patient is currently on IV vancomycin, acetazolamide 250 IV twice daily, citric acid/sodium citrate 30 mL p.o. twice daily, D5W 120 cc/h, sliding scale insulin, levothyroxine 175 mcg p.o. ACBR, lidocaine patch as needed, promethazine IV every 6 hours, simethicone as needed. Nephrology consulted for recurrent hypokalemia and metabolic acidosis. Home medications levothyroxine 100 mcg, lovastatin 40 mg, hydrochlorothiazide 25 mg, Metformin 500 mg twice daily, Jardiance 10 mg 05/30/2024: Patient seen and MedSurg, patient reports all of her symptoms started in March, before March she has no similar complaints, she was admitted to the ICU for similar complaints, reported feeling better and was discharged home. She complains that her nausea and vomiting started about 3 days after discharge from hospital in March. Reports multiple visits to the emergency department for same symptoms in the month of April where she was given IV fluids and was discharged on medication, she said that she was never able to take any p.o. medications, cannot tolerate p.o. meds and was not taking them since March ever since her symptoms started. Patient does report poor p.o. intake since March complicated with recurrent nausea and vomiting, today at bedside she reports severe difficulty swallowing solids to all different types of solids, reports that she has an episode of emesis as soon as she tries to swallow. Patient is able to tolerate liquids p.o., reports drinking water and reported drinking Ensure. Patient's diabetes was diagnosed in February earlier this year, she was started on Jardiance and metformin. She denies any sick contacts, any recent travel and she has not been sexually active in the last year. 05/31/2024: Patient seen at bedside, patient complains of nausea/vomiting right after swallowing. Talked to the patient in detail, patient has no family in [place] recently moved from [facility], possible component of depression, consider functional disorder. Patient is scheduled for gastric emptying study nuclear medicine scan today. Patient will be given 1 amp of bicarb, recommend starting patient on Megace and SSRI to treat possible underlying functional cause. 06/01/2024: Patient seen at bedside, patient reports 4 episodes of emesis yesterday. Patient able to drink apple juice today, patient is able to take Megace and SSRI, enforced the importance of taking SSRI daily to the patient, patient verbalizes understanding. Otherwise patient's bicarb today 18, potassium 3.1, sodium 147, patient will be given 1 amp of bicarb, encourage p.o. water intake, patient educated on importance of hydration, potassium replaced by primary team. Will continue to monitor patient. Exam Vital Signs Temp Pulse Resp BP Pulse Ox O2 Del Method 97.6 F 97 18 135/78 H 97 Room Air 06/01/24 08:00 06/01/24 08:00 06/01/24 08:00 06/01/24 08:00 06/01/24 08:00 06/01/24 08:00 Narrative Exam Physical Exam General: Awake and in no acute distress. Conversational and non-toxic appearing. HEENT: Normocephalic, atraumatic, mucous membranes dry. Heart: Regular rate and rhythm, no murmurs. Lungs: Clear to auscultation with no wheezing or crackles. Abdomen: Mild generalized tenderness noted, non-distended no guarding or rebound tenderness. Neurologic: Alert and oriented x3, no gross neurological deficit, and patient able to move all 4 extremities. Extremities: No edema. Skin: No rash or ecchymoses. Objective Labs 06/01/24 04:37 06/01/24 04:37 Labs: Laboratory Results - last 24 hr 06/01/24 04:37 WBC 6.8 RBC 2.71 L Hgb 8.3 L Hct 25.4 L MCV 94 MCH 30.6 MCHC 32.7 RDW Std Deviation 70.8 H Plt Count 300 D Neut % (Auto) 54 Lymph % (Auto) 24 [place] % (Auto) 16 H Eos % (Auto) 5 Baso % (Auto) 1 Neut # (Auto) 3.7 Lymph # (Auto) 1.6 [place] # (Auto) 1.1 H Eos # (Auto) 0.4 Baso # (Auto) 0.1 Immature Gran # (Auto) 0.03 H Absolute Nucleated RBC 0.00 Immature Gran % 0 Nucleated RBC % 0 Sodium 147 H Potassium 3.1 L Chloride 117 H Carbon Dioxide 18.0 L Anion Gap 12 BUN < 5 L Creatinine 0.9 Estim Creat Clear Calc 72.5 eGFR > 60 BUN/Creatinine Ratio 6 L Glucose 110 H Calculated Osmolality 290 Calcium 9.7 Corrected Calcium 9.7 Phosphorus 4.0 Magnesium 2.2 Total Bilirubin 0.5 AST 33 ALT 20 Alkaline Phosphatase 51 D Total Protein 6.8 Albumin 4.0 D Globulin 2.8 Albumin/Globulin Ratio 1.4 ABG Interpretation ABG results: 05/14/24 05/15/24 17:25 16:48 VBG pH 7.49 7.39 VBG pCO2 21 L 28 L VBG pO2 35 43 VBG Base Excess -5 L -7 L Quality Measures Quality Measures VTE prophylaxis (Heparin ) Assessment & Plan Assessment Current Active Medications: Generic Name Dose Route Start Last Admin Trade Name Freq PRN Reason Stop Dose Admin Acetaminophen 650 mg 05/15/24 18:27 05/31/24 14:37 Acetaminophen 325 Mg Tablet PO 06/14/24 18:26 650 mg Q4HR PRN Administration Fever >101 or pain 1-3 Hydrocodone Bitart/Acetaminophen 1 tab 05/31/24 16:33 Hydrocodone/Apap 5/325 Tablet PO 06/05/24 16:32 Q6HR PRN Pain 4-7 or breakthrough pain Citric Acid/Sodium Citrate 30 ml 05/27/24 11:30 06/01/24 08:42 Citric Acid/Sodium Citr 15 Ml Udc (Bicitra) PO 06/26/24 11:29 Not Given BID MEGAN Dextrose 25 ml 05/15/24 05:02 Dextrose 50%-Water Inj 50 Ml Syringe IV 06/14/24 05:01 Q15MIN PRN BG 50-70 responsive npo pt Dextrose 50 ml 05/15/24 05:02 Dextrose 50%-Water Inj 50 Ml Syringe IV 06/14/24 05:01 Q15MIN PRN BG <50 OR BG <70 & pt unresponsive Glucagon 1 mg 05/15/24 05:02 Glucagon Inj 1 Mg Vial IM Q15MIN PRN BG <70, and no IV access Ceftriaxone Sodium 2 gm/ 50 mls @ 100 mls/hr 05/28/24 21:00 06/01/24 08:51 Sodium Chloride IV 06/04/24 20:59 100 mls/hr Q12HR MEGAN Administration Vancomycin HCl/Dextrose 250 mls @ 120 mls/hr 05/31/24 10:00 05/31/24 13:42 Vancomycin/D5w 1,250 Mg Ivpb IV 06/07/24 09:59 120 mls/hr QDAY@1000 MEGAN Administration Protocol Potassium Chloride 10 meq in 100 mls @ 100 mls/hr 06/01/24 07:56 06/01/24 08:55 Kcl Ivpb IV 06/01/24 11:55 100 mls/hr Q1H MEGAN Administration Potassium Chloride 10 meq in 100 mls @ 100 mls/hr 06/01/24 13:00 Kcl Ivpb IV 06/01/24 16:59 Q1H MEGAN Insulin Human Regular 0 unit 05/21/24 17:00 06/01/24 07:38 Insulin Hum Regular 1 Unit/0.01 Ml (Per Unit) SC 06/20/24 16:59 Not Given ACHS MEGAN Protocol Levothyroxine Sodium 50 mcg 05/31/24 09:00 06/01/24 08:54 Levothyroxine Inj 100 Mcg Vial IV 06/30/24 08:59 50 mcg QDAY MEGAN Administration Lidocaine 1 patch 05/21/24 09:21 05/31/24 21:07 Lidocaine 5% 1 Patch TOP 06/20/24 09:20 1 patch UD PRN Administration PAIN Protocol Megestrol Acetate 400 mg 05/31/24 09:15 06/01/24 08:54 Megestrol Acet Susp 400 Mg/10 Ml Udc PO 06/30/24 09:14 400 mg BID MEGAN Administration Metoclopramide HCl 5 mg 05/31/24 18:00 06/01/24 05:19 Metoclopramide Inj 5 Mg/Ml Vial 2 Ml IVP 06/30/24 17:59 5 mg Q6HR MEGAN Administration Protocol Ondansetron HCl 4 mg 05/19/24 09:48 05/31/24 23:50 Ondansetron Inj 2 Mg/Ml Inj 2 Ml IV 06/18/24 09:47 4 mg Q6HR PRN Administration NAUSEA OR VOMITING Protocol Pharmacy Consult 1 each 05/22/24 09:00 Vancomycin Pharmacy To Dose 1 Each Each IV 06/21/24 08:59 QDAY PRN CONSULT Promethazine HCl 25 mg 05/31/24 13:15 06/01/24 05:16 Promethazine Hcl 25 Mg Tablet PO 06/30/24 13:14 Not Given Q6HR MEGAN Sertraline HCl 50 mg 05/31/24 21:00 05/31/24 20:51 Sertraline Hcl 25 Mg Tablet PO 06/30/24 20:59 50 mg HS MEGAN Administration Simethicone 80 mg 05/26/24 11:42 Simethicone 80 Mg Chew PO 06/25/24 11:41 QID PRN GAS Plan Summary: Ms Palumbo is a 59-year-old female with a past medical history of hypertension, diabetes, hypothyroidism, dermoid cyst and hyperlipidemia who was admitted on 05/14/2024 for intractable nausea, vomiting and diarrhea. Nephrology consulted for recurrent hypokalemia and metabolic acidosis. # Hypokalemia # Metabolic acidosis Patient continues to have recurrent episodes of nausea and vomiting, suspicion of hypokalemia secondary to GI losses. Patient currently on acetazolamide due to suspicion of pseudotumor cerebri, likely causing metabolic acidosis which was discontinued yesterday Patient reports episodes of vomiting immediately secondary to swallowing, solids>> liquids. Patient did have swallow study done in the past which the patient was not able to tolerate. Consider barium swallow. Consider functional disorder, consider p.o. liquid SSRI. Plan: -Patient will be given another amp of bicarb today, patient reports she is unable to swallow Bicitra. -Currently on Megace and SSRI, patient was able to take the tablet yesterday. -Discontinued acetazolamide -Replace potassium as needed -Monitor renal panel in a.m. -Monitor bicarb in a.m. # Hypernatremia # Hypercalcemia # Dehydration Patient does report she is able to tolerate p.o. liquids, reports drinking water. Encourage p.o. water intake. # Hypothyroidism Currently on IV levothyroxine. #Epidural abscess #Osteomyelitis/discitis Management as per primary team Case discussed with Attending Dr. Hadley. Edin Linton PGY1 Attending Provider Attestation/Addendum Patient seen and examined with resident physician Dr. Linton. Note reviewed, agree with findings and recommendations. Extensive review of the chart. Patient had endoscopy which was not significant. Admits to having swallowing problems since March-moved from [place] to [facility]. No family around. She has distant family members in [place]. Currently living alone. Feels aloof with no friends, since March lost more than 50 pounds. Unable to keep any solids down. Medications have been reviewed. Patient going for gastric emptying scan in a.m. Dr. Reardon suspected gastroparesis. Replace potassium, bicarbonate. Patient with a significantly decreased p.o. intake causing intracellular potassium depletion, metabolic acidosis. Metabolic acidosis also compounded by acetazolamide. Reviewed with Dr. Cobb recommendations. I did not think because she has pseudotumor cerebri. Will hold acetazolamide for now. 05/31/2024 gastric emptying scan came back normal. After speaking to the patient for more than 30 minutes-suspect patient seems to have some component of somatization for nausea. She seems to be very depressed. Took liberty of starting patient on SSRI at a low dose along with Megace. Patient seems to have no problem with the swallowing liquids. She did swallow water in front of me. Plan of care discussed with primary team. 06/01/2024 patient currently seen in medical floor. Patient able to tolerate apple juice and any liquids. She was able to take Megace and sertraline yesterday. Suggested to continue the same. Patient seems to be slightly better spirits. Replace IV bicarbonate,, IV potassium
[2024-06-01] MEDS: VANCOMYCIN/D5W 1,250 MG IVPB 250 ML 120 MG IV (10:06)
[2024-06-01] MEDS: HYDROcodone/APAP 5/325 TABLET 1 TAB PO ×2 (10:07→20:39)
[2024-06-01] MEDS: SODIUM BICARB INJ 8.4% 1 mEq/ML VIAL 50 ML 50 MEQ IV (10:07)
[2024-06-01 11:48] VITALS: BMI 32.5
[2024-06-01 12:00] VITALS: BP 117/76; PULSE 102; RESP 18; TEMP 36.4; O2SAT 98
[2024-06-01] MEDS: DEXTROSE 5%-LACTATED RINGERS 1,000 ML 120 ML IV ×2 (12:13→22:19)
--- NOTE | 2024-06-01 12:49 | ESPR_ITS ---
Documentation for date of: 06/01/24 Subjective Subjective Interval history: Started on p.o. promethazine 25 mg p.o. 4 times daily and Reglan 5 mg IV push Q6 see how she does Exam Vital Signs Temp Pulse Resp BP Pulse Ox O2 Del Method 97.6 F 97 18 135/78 H 97 Room Air 06/01/24 08:00 06/01/24 08:00 06/01/24 08:00 06/01/24 08:00 06/01/24 08:00 06/01/24 08:00 Objective Labs 06/01/24 04:37 06/01/24 04:37 Labs: Laboratory Results - last 24 hr 06/01/24 04:37 WBC 6.8 RBC 2.71 L Hgb 8.3 L Hct 25.4 L MCV 94 MCH 30.6 MCHC 32.7 RDW Std Deviation 70.8 H Plt Count 300 D Neut % (Auto) 54 Lymph % (Auto) 24 [place] % (Auto) 16 H Eos % (Auto) 5 Baso % (Auto) 1 Neut # (Auto) 3.7 Lymph # (Auto) 1.6 [place] # (Auto) 1.1 H Eos # (Auto) 0.4 Baso # (Auto) 0.1 Immature Gran # (Auto) 0.03 H Absolute Nucleated RBC 0.00 Immature Gran % 0 Nucleated RBC % 0 Sodium 147 H Potassium 3.1 L Chloride 117 H Carbon Dioxide 18.0 L Anion Gap 12 BUN < 5 L Creatinine 0.9 Estim Creat Clear Calc 72.5 eGFR > 60 BUN/Creatinine Ratio 6 L Glucose 110 H Calculated Osmolality 290 Calcium 9.7 Corrected Calcium 9.7 Phosphorus 4.0 Magnesium 2.2 Total Bilirubin 0.5 AST 33 ALT 20 Alkaline Phosphatase 51 D Total Protein 6.8 Albumin 4.0 D Globulin 2.8 Albumin/Globulin Ratio 1.4 Impressions Impression: # Nausea vomiting central in origin No evidence of gastric outlet obstruction at the moment Continue current management and encourage p.o. intake ABG Interpretation ABG results: 05/14/24 05/15/24 17:25 16:48 VBG pH 7.49 7.39 VBG pCO2 21 L 28 L VBG pO2 35 43 VBG Base Excess -5 L -7 L Assessment & Plan A&P Narrative mild anemia presumptive gastroparesis with controlled dm dermoid tumor hypothyroid htn hld possible epidural abscess with neg cx on empiric vanco/zosyn ideally, this is drained or pt is referred for such so that if the referral is denied, please document any rationale for no intervention so we all can know why that is the case ok to change zosyn to rocephin and vanco to po doxy and see if other meds can be changed to po too. if empiric rx is to be the goal, then use agents that are supported by micro or are easy to use. she likely needs dermoid addressed at some point as well. will not see again unless requested as inpt current abx are more toxic and require more daily doses then alternative empiric rx. favor rocephin 2 gm iv daily and po doxy 100 bid thru 07/09 with weekly cbc, renal panel, esr and line removal at end of rx if process remains, please re visit drainage at end of iv run and extend abx will see prn. f/u with dr Reardon on the tpn. I generally do not provide that rx. Time Spent With Patient Time: Total time spent is greater than 50% in coordination of care (as documented) at patient's floor/unit and/or counseling patient:
[2024-06-01 16:00] VITALS: BP 140/75; PULSE 93; PULSE 98; RESP 17; TEMP 36.2; O2SAT 99
--- NOTE | 2024-06-01 16:08 | ESPR_ITS ---
Documentation for date of: 06/01/24 Subjective Subjective Interval history: Patient examined at bedside today. No acute overnight events. Says she has not vomited since 9 PM yesterday, threw up zoloft. Says she is able to drink apple juice, Ensure clear apple flavor, cold water, fruits and veggies including apples, carrots, celery. Says she does not know why this is happening to her. Still experiencing diarrhea that occurs with every time she uses the restroom to pee every 2-1/2 hours. Says she feels stronger today though. No other complaints at this time. Exam Vital Signs Temp Pulse Resp BP Pulse Ox O2 Del Method 97.6 F 102 H 18 117/76 98 Room Air 06/01/24 12:00 06/01/24 12:00 06/01/24 12:00 06/01/24 12:00 06/01/24 12:00 06/01/24 12:00 Narrative Exam General: AAOx3, NAD, sitting up on bed when examined HEENT: Dry mucous membranes, conjunctiva clear, EOMI, PERRLA, Cardiovascular: S1, S2, radial pulses +2 bilat, RRR Pulmonary: CTAB bilat no cough, no wheezing GI: Slight tenderness to light palpitation, no guarding, rigidity, rebound tenderness or distension, bowel sounds present Extremities: No presence of trace or pitting edema in lower extremities bilaterally, dorsalis pedis pulses +2 bilaterally, L upper hand in site of IV erythematous and TTP Neuro: AAOx3, resting tremor in UE bilat Psych: Good judgement, thought and behavior. Cooperative Objective Labs 06/01/24 04:37 06/01/24 04:37 Labs: Laboratory Results - last 24 hr 06/01/24 04:37 WBC 6.8 RBC 2.71 L Hgb 8.3 L Hct 25.4 L MCV 94 MCH 30.6 MCHC 32.7 RDW Std Deviation 70.8 H Plt Count 300 D Neut % (Auto) 54 Lymph % (Auto) 24 [place] % (Auto) 16 H Eos % (Auto) 5 Baso % (Auto) 1 Neut # (Auto) 3.7 Lymph # (Auto) 1.6 [place] # (Auto) 1.1 H Eos # (Auto) 0.4 Baso # (Auto) 0.1 Immature Gran # (Auto) 0.03 H Absolute Nucleated RBC 0.00 Immature Gran % 0 Nucleated RBC % 0 Sodium 147 H Potassium 3.1 L Chloride 117 H Carbon Dioxide 18.0 L Anion Gap 12 BUN < 5 L Creatinine 0.9 Estim Creat Clear Calc 72.5 eGFR > 60 BUN/Creatinine Ratio 6 L Glucose 110 H Calculated Osmolality 290 Calcium 9.7 Corrected Calcium 9.7 Phosphorus 4.0 Magnesium 2.2 Total Bilirubin 0.5 AST 33 ALT 20 Alkaline Phosphatase 51 D Total Protein 6.8 Albumin 4.0 D Globulin 2.8 Albumin/Globulin Ratio 1.4 ABG Interpretation ABG results: 05/14/24 05/15/24 17:25 16:48 VBG pH 7.49 7.39 VBG pCO2 21 L 28 L VBG pO2 35 43 VBG Base Excess -5 L -7 L Quality Measures Quality Measures VTE prophylaxis (Heparin ) Assessment & Plan Assessment Current Active Medications: Generic Name Dose Route Start Last Admin Trade Name Freq PRN Reason Stop Dose Admin Acetaminophen 650 mg 05/15/24 18:27 05/31/24 14:37 Acetaminophen 325 Mg Tablet PO 06/14/24 18:26 650 mg Q4HR PRN Administration Fever >101 or pain 1-3 Hydrocodone Bitart/Acetaminophen 1 tab 05/31/24 16:33 06/01/24 10:07 Hydrocodone/Apap 5/325 Tablet PO 06/05/24 16:32 1 tab Q6HR PRN Administration Pain 4-7 or breakthrough pain Amitriptyline HCl 25 mg 06/01/24 21:00 Amitriptyline Hcl 25 Mg Tablet PO 07/01/24 20:59 HS MEGNA Dextrose 25 ml 05/15/24 05:02 Dextrose 50%-Water Inj 50 Ml Syringe IV 06/14/24 05:01 Q15MIN PRN BG 50-70 responsive npo pt Dextrose 50 ml 05/15/24 05:02 Dextrose 50%-Water Inj 50 Ml Syringe IV 06/14/24 05:01 Q15MIN PRN BG <50 OR BG <70 & pt unresponsive Glucagon 1 mg 05/15/24 05:02 Glucagon Inj 1 Mg Vial IM Q15MIN PRN BG <70, and no IV access Ceftriaxone Sodium 2 gm/ 50 mls @ 100 mls/hr 05/28/24 21:00 06/01/24 08:51 Sodium Chloride IV 06/04/24 20:59 100 mls/hr Q12HR MEGAN Administration Vancomycin HCl/Dextrose 250 mls @ 120 mls/hr 05/31/24 10:00 06/01/24 10:06 Vancomycin/D5w 1,250 Mg Ivpb IV 06/07/24 09:59 120 mls/hr QDAY@1000 MEGAN Administration Protocol Potassium Chloride 10 meq in 100 mls @ 100 mls/hr 06/01/24 13:00 06/01/24 15:21 Kcl Ivpb IV 06/01/24 16:59 100 mls/hr Q1H MEGAN Administration Dextrose/Lactated Ringer's 1,000 mls @ 120 mls/hr 06/01/24 11:00 06/01/24 12:13 D5-Lr IV 07/01/24 10:59 120 mls/hr .Q8H20M MEGAN Administration Insulin Human Regular 0 unit 05/21/24 17:00 06/01/24 12:38 Insulin Hum Regular 1 Unit/0.01 Ml (Per Unit) SC 06/20/24 16:59 Not Given ACHS MEGAN Protocol Levothyroxine Sodium 50 mcg 05/31/24 09:00 06/01/24 08:54 Levothyroxine Inj 100 Mcg Vial IV 06/30/24 08:59 50 mcg QDAY MEGAN Administration Lidocaine 1 patch 05/21/24 09:21 05/31/24 21:07 Lidocaine 5% 1 Patch TOP 06/20/24 09:20 1 patch UD PRN Administration PAIN Protocol Megestrol Acetate 400 mg 05/31/24 09:15 06/01/24 08:54 Megestrol Acet Susp 400 Mg/10 Ml Udc PO 06/30/24 09:14 400 mg BID MEGAN Administration Metoclopramide HCl 5 mg 05/31/24 18:00 06/01/24 11:50 Metoclopramide Inj 5 Mg/Ml Vial 2 Ml IVP 06/30/24 17:59 5 mg Q6HR MEGAN Administration Protocol Ondansetron HCl 4 mg 05/19/24 09:48 05/31/24 23:50 Ondansetron Inj 2 Mg/Ml Inj 2 Ml IV 06/18/24 09:47 4 mg Q6HR PRN Administration NAUSEA OR VOMITING Protocol Pharmacy Consult 1 each 05/22/24 09:00 Vancomycin Pharmacy To Dose 1 Each Each IV 06/21/24 08:59 QDAY PRN CONSULT Promethazine HCl 25 mg 05/31/24 13:15 06/01/24 13:38 Promethazine Hcl 25 Mg Tablet PO 06/30/24 13:14 Not Given Q6HR MEGAN Simethicone 80 mg 05/26/24 11:42 Simethicone 80 Mg Chew PO 06/25/24 11:41 QID PRN GAS Plan 59-year-old female with a past medical history of hypertension, diabetes, hypothyroidism and hyperlipidemia who presented to the ED on 05/14/2024 with abdominal pain, nausea and vomiting that has persisted over the last 2 months. The patient has been admitted for management of intractable nausea and vomiting, starvation ketosis. Patient on imaging was found to have spinal epidural abscess with multiple attempts to transfer the patient to a nursing care various institutions infiltrative patient and recommend conservative management. #Intractable nausea and vomiting #? atypical pseudotumor cerebri #? Cyclic vomiting syndrome Patient with diplopia/blurry vision and headache raising suspicion for pseudotumor cerebri subsequently started on acetazolamide with improvement Lumbar puncture unable to be done due to spinal epidural abscess Patient currently on PPN and clear liquid diet Spoke to neurology Dr Hernandez, states this may be atypical visitation of the arrhythmia , recommends to continue Diamox see patient improves, we cannot do LP at this time because of epidural abscess. Will continue with Diamox to see if patient's symptoms improve, if improved, patient likely has pseudotumor cerebri Turned off TPN, patient is still vomiting At this point we will retry for gastric emptying study to see if there is a motility issue Spoke with Dr. Reardon, wants to proceed with gastric emptying study and go from there for further imaging/workup for possible transfer And concerns with pseudotumor cerebri, cannot perform LP until epidural resolves and patient will need 6 weeks of antibiotics Gastric emptying study shows normal motility Spoke with GI, recommends new antiemetic regimen before considering other workup Nephrology thinks that patient may have nausea and vomiting related to depression Pt is able to tolerate water, clear ensure and apple juice, but nothing else, vomits from any food especially eggs Patient tolerates apple juice, cold water, Ensure clear apple flavor, fruits and veggies including apples, carrots, grapes, celery, and jello At this point patient needs transferred, we will see what GI thinks from the standpoint. Plan: ?Special diet request -Zofran as needed -Reglan 5 mg IV every 6 hours ?Promethazine 25 mg p.o. every 6 hours -Encourage p.o. intake as tolerated, Megace added by nephrology ?Adding amitriptyline, d/c Zoloft -Neurology on case appreciate recommendations -GI on the case appreciate recommendations #Epidural abscess #Osteomyelitis/discitis Found on lumbar MRI Discussed case with multiple institutions rejected the case recommended conservative management Will continue trying to send the patient for neurosurgical evaluation Currently, patient denies any lower extremity weakness, saddle anesthesia and denies any fecal or urinary incontinence ID recommends for pt to have drainage of abscess at some point ID recommends 2 g daily Rocephin and doxycycline, however patient cannot take doxycycline as she already has GI upset Will eventually adjust rocephin 2g daily once pt is d/c to SNF Plan: -On IV vancomycin, and Rocephin 2g IV BID -ID consulted, appreciate recommendations -Continue to pursue transfer #Metabolic acidosis Likely secondary to acetazolamide Current bicarb ~18 Plan: ?Nephrology on consult, appreciate recs ?Discontinue Diamox ?Bicarb 8.4 50 mL x1 by nephrology #Electrolyte abnormalities #Hypokalemia secondary to #GI losses #Diarrhea Plan: ?Replete as needed ?Treat as above with antiemetics ?As above #Type 2 diabetes mellitus A1c 6.8 -on insulin sliding scale #Hypothyroidism Patient noted to have TSH of 75 however T4 at 0.76 ? The patient was started on Synthroid 175 mcg p.o. but unable to tolerate p.o. medication, will switch to IV levothyroxine. #Health Maintenance Disposition: Medsurg DVT prophylaxis: Heparin GI prophylaxis: Simethicone Diet: Special diet request CODE STATUS: Full Patient seen and care discussed with my senior resident, Dr. Davis, and my attending physician, Dr. Freddie Solorio, PGY-1 Senior resident attestation: Patient evaluated and examined at the bedside, plan of care discussed with rest of the team including my attending physician, except as noted. ------- ------- ----- Senior resident attestation: The patient came in with chief complaint of unrelenting nausea and vomiting after eating meals. Noted severe hypokalemia and metabolic acidosis, possible RTA type I, associated with neurological symptoms including horizontal nystagmus and binocular diplopia, weight loss, also complaining of back pain for the past few months. #Intractable nausea vomiting #Possible Gastroperesis vs pseudotumor cerebri vs Wernicke's syndrome #Diplopia - resolved #Nystagmus - resolved ? Gastroenterology on board, favoring gastroparesis as possible etiology, recommended NM gastric emptying study which was normal, of note patient was receiving centrally acting antiemetics but no prokinetics for the last 48 hours. Antiemetics per GI recommendations. ? Noted severe vitamin B1 deficiency, likely Wernicke's syndrome leading to symptoms of diplopia and nystagmus which are now resolved, after IV thiamine replacement. Likely etiology nutritional deficiency. ? Neurology was consulted for possible central no system because of nausea vomiting as well as nystagmus and diplopia during the initial clinical presentation, considered neuromyelitis optica as initial diagnosis due to demyelination pattern on brain imaging, but was later ruled out after further imaging which showed no demyelination of spinal cord typical of NMO. Consider diagnosis of atypical pseudotumor cerebri, but neurology is less impressed, patient continued on few days of acetazolamide, but due to worsening metabolic acidosis and no improvement in symptoms, acetazolamide was discontinued, after consulting nephrology who recommended against continuous torsemide in the setting of metabolic acidosis requiring IV bicarb. ? Also considered possible psychiatry causes as patient has atypical presentation unable to tolerate liquids and fruits but unable to tolerate most solid diet, no dysphagia, no stricture on EGD, normal gastric emptying study. ? Considered alternative diagnosis like bulimia in the setting of depression, nephrology took the liberty of adding Megace and Zoloft, patient vomited Zoloft after first dose, started the patient on amitriptyline as part of gastroparesis treatment. May also help with depression. #Discitis?lumbar vertebra #Spinal epidural abscess ?During the clinical course and evaluation MRI lumbar spine showed concern for early spinal epidural abscess, and discitis of lumbar vertebra. Associated with neurological deficits including paresthesias bilateral lower extremities and right sided limb weakness, neurological exam shows objective weakness of the right lower extremity, also complaining of pain on right lower extremity movement in the hip joint. No bowel or bladder incontinence or saddle anesthesia. Currently patient ambulates with a walker. Transfer was attempted, but patient was denied transfer for neurosurgical intervention at [facility]. Spoke to radiologist, who reiterated increased T2 enhancement of vertebral bodies as well as epidural layer around the lumbar vertebra. No definite abscess noted, no cord compression at this moment, repeated attempts to transfer for neurosurgery were unsuccessful. ?ID was consulted who recommended switching to ceftriaxone and doxycycline. Literature review shows spinal epidural abscess, common pathogen Staph aureus and two thirds of the cases and 20 to 50% of the cases can be MRSA. Currently on ceftriaxone 2 g daily and vancomycin, as patient is unable to tolerate p.o., and doxycycline is also remotely associated with pseudotumor cerebri. Patient will need IV antibiotics for consistent dosing anyways. #History of rheumatoid arthritis Patient has history of RA, typical swan-neck deformity in the right upper extremity, also reports small and large joint pains, as well as morning stiffness. Patient has unable to follow-up with rheumatology outpatient due to insurance issues. 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 Autoimmune disorders can also cause dysmotility syndromes in the esophagus, but patient has no dysphagia or abnormal gastric emptying. #Acute anemia ?Continued downtrend of hemoglobin, possible source for GI bleed, as well as possible anemia of chronic disease as well as phlebotomy, nominally increased reticulocyte count. # Non-anion gap metabolic acidosis secondary to GI losses #Hypokalemia #Possible proximal RTA type I versus GI losses # Initial presentation with severe hypokalemia requiring repeated electrolyte replacement IV n.p.o. for many days as well as concurrent metabolic acidosis. Urine anion gap normal, concern for possible RTA type I. Also possible metabolic acidosis as acetazolamide was added due to concern for pseudotumor cerebri. But later discontinued as no improvement in clinical symptoms and worsening metabolic acidosis by nephrology. Quresh PGY2 Attending Provider Attestation/Addendum I have examined the patient, reviewed labs and imaging findings, discussed the case with the resident(s), and reviewed entered orders. I agree with the plan of care as outlined in this note, with these additional summaries/recommendations: Patient seen at bedside. No acute overnight events. Unfortunately patient continues to have poor oral intake secondary to intractable nausea with vomiting. She denies vomiting so far today. Gastric emptying study completed which was normal. Possible patient's intractable nausea may be secondary to somatization although etiology remains unknown at this time. Also possible nausea is related to severe hypothyroidism or diabetic gastroparesis despite normal study. We will place special diet request today for small frequent meals with fruits, carrots, celery, and grapes. We will monitor closely if patient can tolerate. We will start amitriptyline for possible depression and nausea and monitor for improvement. Continue Megace. Continue promethazine and Reglan as tolerated. Hypokalemia and metabolic acidosis persists. Gastroenterology following closely. We will continue to give electrolyte replacement and nephrology ordered 1 dose of bicarb for today. Continue IV Rocephin and vancomycin for epidural abscess plus osteomyelitis/discitis. Continue basal and bolus insulin for diabetes mellitus type 2. Repeat hematology and chemistry panel in AM. Dr. Frazier
[2024-06-01] MEDS: PROMETHAZINE HCL 25 MG TABLET PO (17:44)
[2024-06-01 20:00] VITALS: BP 140/81; PULSE 97; PULSE 98; RESP 20; TEMP 36.3; O2SAT 97
--- NOTE | 2024-06-01 21:25 | ESPR_ITS ---
Documentation for date of: 06/01/24 Subjective Subjective Interval history: Ms. Palumbo was seen in [facility] today, doing little better, she is tolerating oral diet well, able to walk with a walker. Plaints of frequent loose stools and was wondering if it was related to potassium Exam - Neurology Vital Signs Temp Pulse Resp BP Pulse Ox O2 Del Method 97.4 F 98 20 140/81 H 97 Room Air 06/01/24 20:00 06/01/24 20:00 06/01/24 20:00 06/01/24 20:00 06/01/24 20:00 06/01/24 20:00 Narrative Exam GENERAL APPEARANCE: Well hydrated, well-nourished in no acute distress. HEENT: Normocephalic, atraumatic, extraocular movements intact. Pupils: Equal reacting to light CARDIOVASULAR: Heart: S1, S2 heard, regular without S3-S4 or murmur no rubs or gallops. LUNGS/CHEST: Clear to auscultation bilaterally. No rails, rhonchi, or wheezing. Normal inspection. ABDOMEN: Soft, nontender, with normal bowel sounds. No pulsatile masses. No rebound, rigidity, or guarding. Normal inspection and palpation. EXTREMITIES: Normal inspection and palpation. No edema, clubbing or cyanosis. SKIN: Warm and dry without rashes. Normal inspection. MUSCULOSKELETAL: No cervical, thoracic, lumbar or midline bony tenderness. Normal inspection. NEURO: Alert, awake and oriented x3. Cranial nerves: II through XII grossly intact. Speech and language: Normal with no dysarthria or dysphasia. Motor system: Tone and bulk: Normal: Strength: moves all extremities, No pronator drift noted. Deep tendon reflexes: 2+ bilaterally symmetrical. Plantar reflex: Downgoing bilaterally. Sensory system: subjective paresthesias in the right LE noted. Coordination: Intact to [id number]-hyngta test bilaterally. No ataxia, no dysmetria, or dysdiadochokinesia noted. No intention tremors noted. Gait: walks with a walker; No signs of meningeal irritation noted. PSYCHIATRIC: Normal mood and affect. Objective Labs 06/01/24 04:37 06/01/24 04:37 Labs: Laboratory Results - last 24 hr 06/01/24 04:37 WBC 6.8 RBC 2.71 L Hgb 8.3 L Hct 25.4 L MCV 94 MCH 30.6 MCHC 32.7 RDW Std Deviation 70.8 H Plt Count 300 D Neut % (Auto) 54 Lymph % (Auto) 24 [place] % (Auto) 16 H Eos % (Auto) 5 Baso % (Auto) 1 Neut # (Auto) 3.7 Lymph # (Auto) 1.6 [place] # (Auto) 1.1 H Eos # (Auto) 0.4 Baso # (Auto) 0.1 Immature Gran # (Auto) 0.03 H Absolute Nucleated RBC 0.00 Immature Gran % 0 Nucleated RBC % 0 Sodium 147 H Potassium 3.1 L Chloride 117 H Carbon Dioxide 18.0 L Anion Gap 12 BUN < 5 L Creatinine 0.9 Estim Creat Clear Calc 72.5 eGFR > 60 BUN/Creatinine Ratio 6 L Glucose 110 H Calculated Osmolality 290 Calcium 9.7 Corrected Calcium 9.7 Phosphorus 4.0 Magnesium 2.2 Total Bilirubin 0.5 AST 33 ALT 20 Alkaline Phosphatase 51 D Total Protein 6.8 Albumin 4.0 D Globulin 2.8 Albumin/Globulin Ratio 1.4 ABG Interpretation ABG results: 05/14/24 05/15/24 17:25 16:48 VBG pH 7.49 7.39 VBG pCO2 21 L 28 L VBG pO2 35 43 VBG Base Excess -5 L -7 L Assessment & Plan Assessment and plan (1) Lumbar disc disease: Status: Acute Assessment and plan: with discitis. Continue with IV antibiotics. improving. if persistent, will do EMG AND NCS of both LE as an outpatient. (2) Intractable nausea and vomiting: Status: Resolved Assessment and plan: Diarrhea continues, might need to consider checking for C. difficile as she is on antibiotics intermediate. (3) Diabetes mellitus type 2, insulin dependent: Status: Acute Assessment and plan: Continue to check fingerstick glucose and follow sliding scale insulin per protocol
[2024-06-01] MEDS: AMITRIPTYLINE HCL 25 MG TABLET PO (22:13)
[2024-06-02] VITALS (8 sets, daily range): BP systolic 132–149; BP diastolic 74–88; PULSE 89–105; RESP 16–21; TEMP 35.9–36.6; O2SAT 96–100
[2024-06-02] MEDS: METOCLOPRAMIDE INJ 5 MG/ML VIAL 2 ML IVP ×5 (00:08→23:56)
[2024-06-02] MEDS: PROMETHAZINE HCL 25 MG TABLET PO ×5 (00:08→23:55)
[2024-06-02] MEDS: DEXTROSE 5%-LACTATED RINGERS 1,000 ML 120 ML IV (06:21)
[2024-06-02] MEDS: HYDROcodone/APAP 5/325 TABLET 1 TAB PO ×2 (09:03→19:37)
[2024-06-02] MEDS: LEVOTHYROXINE INJ 100 mCg VIAL 50 MCG IV (09:04)
[2024-06-02] MEDS: MEGESTROL ACET SUSP 400 MG/10 ML UDC PO ×2 (09:04→20:43)
[2024-06-02] MEDS: cefTRIAXone 2 GM in SODIUM CHLORIDE 0.9% (P) 50 ML IV ×2 (09:04→20:45)
[2024-06-02 09:29] LABS: Basophils # (Auto) 0.1 Thou/mm3 (0.0-0.2); Basophils % (Auto) 1 % (0-2.5); Eosinophils # (Auto) 0.4 Thou/mm3 (0.0-0.5); Eosinophils % (Auto) 7 % (0-10); Hematocrit 26.5 % (36.0-46.0); Immature Granulocytes % (Auto) 0 % (0-0); Immature Granulocytes Auto 0.02 Thou/mm3 (0.00-0.00); Lymphocytes # (Auto) 1.2 Thou/mm3 (1.0-4.8); Lymphocytes % (Auto) 18 % (10-50); Mean Corpuscular HGB Conc 32.1 g/dl (31.0-37.0); Mean Corpuscular Hemoglobin 30.2 pg (25.0-35.0); Mean Corpuscular Volume 94 fL (80-100); Monocytes % (Auto) 15 % (0-12); Neutrophils # (Auto) 3.9 Thou/mm3 (1.8-7.7); Neutrophils % (Auto) 59 % (37-80); Nucleated Red Blood Cell % 0 /100 WBC (0); Platelet Count 339 Thou/mm3 (140-440); Red Blood Count 2.81 Miln/mm3 (4.00-5.20); White Blood Count 6.6 Thou/mm3 (3.6-11.0)
[2024-06-02 09:50] LABS: Hemoglobin 8.5 g/dL (12.0-16.0)
[2024-06-02 10:04] LABS: Alanine Aminotransferase 16 U/L (10-49); Albumin, Serum 3.6 gm/dL (3.5-5.0); Albumin/Globulin Ratio 1.4 (1.2-2.2); Alkaline Phosphatase 47 U/L (46-116); Anion Gap 12 (7-16); Aspartate Amino Transferase 25 U/L (0-34); BUN/Creatinine Ratio 6 Ratio (12-20); Bilirubin,Total 0.4 mg/dL (0.3-1.2); Blood Urea Nitrogen < 5 mg/dL (9-23); Calcium 9.4 mg/dL (8.3-10.6); Calcium (Corrected) 9.7 mg/dL (8.5-10.1); Carbon Dioxide 19.3 mMol/L (20.0-31.0); Chloride 117 mMol/L (98-107); Creatinine (Component) 0.9 mg/dL (0.6-1.3); Estimated Creatinine Clearance 72.5 mL/min (>60); Globulin 2.6 gm/dL (2.3-3.5); Glucose 167 mg/dL (74-106); Magnesium 1.8 mg/dL (1.6-2.6); Osmolality,Calculated 295 (275-295); Phosphorous 3.7 mg/dL (2.4-5.1); Potassium 2.9 mMol/L (3.4-5.1); Sodium 148 mMol/L (136-145); Thyroid Stimulating Hormone 8.57 uIU/mL (0.55-4.78); Total Protein 6.2 gm/dL (5.7-8.2); Vancomycin,Trough 15.1 mcg/mL (5.0-10.0); eGFR > 60 See Note
[2024-06-02] MEDS: VANCOMYCIN/D5W 1,250 MG IVPB 250 ML 120 MG IV (11:12)
[2024-06-02] MEDS: POT CHL ADDITIVE 40 MEQ in DEXTROSE 5%-WATER 1,000 ML 200 MEQ IV ×2 (11:33→16:50)
--- NOTE | 2024-06-02 11:52 | ESPR_ITS ---
Documentation for date of: 06/02/24 Subjective Subjective Interval history: Ms Palumbo is a 59-year-old female with a past medical history of hypertension, diabetes, hypothyroidism, dermoid cyst and hyperlipidemia who was admitted on 05/14/2024 for intractable nausea, vomiting and diarrhea. Patient was recently admitted at [facility] March for evaluation of starvation ketosis, was taken to the ICU for further evaluation, did not require insulin drip and was transferred back to floors for evaluation of tractable nausea and vomiting. Patient was unable to tolerate gastric emptying study in the past, and EGD findings showed reflux esophagitis and was discharged on Reglan and erythromycin p.o. When coming to the ED this time she arrived afebrile and hypertensive. She was worked up and Labs showed WBC 6.8 Hgb 14.1 PLT 284 NA 130 5K2.5 CL 99 bicarb 18.2 anion gap 18 BUN 5 CR 0.9 glucose 104 calcium 10.2 lipase 71 beta hydroxybutyrate 4.6 UA showed 1+ protein 3+ ketones 12 WBC, urine hCG positive. VBG showed a pCO2 of 21 with a base excess of -5. EKG showed sinus rhythm with QTc of 468. The patient received 2.7 L of IV fluids, Zofran and potassium and was admitted for management of intractable nausea and vomiting/starvation ketosis. While on the floors patient was having persistent hypokalemia, despite having not vomited. With the progression of hospital course patient had multiple episodes of vomiting which worsened her hypokalemia, patient continues to receive potassium replacement. A number of agents including promethazine, Reglan, Zofran, erythromycin, Ativan and capsaicin were given to patient to manage her symptoms. Patient has on and off episodes of nausea and vomiting which she said can happen at any time, awakens her from sleep, reports occurring with certain fluids as well. Patient unable to tolerate p.o. medication. GI and neurology were consulted for further evaluation of etiology of persistent nausea, vomiting and diarrhea and newly seen horizontal bilateral nystagmus and blurry vision. Specialist recommendations included symptomatic control and further imaging studies. MRI of C-spine, T-spine and brain were done to look for any ideology such as mass effect, multiple sclerosis or any other pathology that could be affecting brain producing stimulation of vomiting center, but those images were unremarkable. Another cause that was pursued was possible relation of dermoid cyst relation to nausea and vomiting. Oncology was consulted who had recommended patient to get an RIB TRIM SEPARATOR consult. RIB TRIM SEPARATOR was consulted, recommended tumor markers and MRI of abdomen pelvis. Abdomen pelvis showed a 5.6 x 6.0 fat-containing mass consistent with dermoid tumor which did not require any surgical intervention at the time. Serum tumor markers were obtained including beta-hCG, AFP, CEA, CA125 which were all unremarkable although patient had beta-hCG of 10 in the urine. Patient did report back pain throughout the course of admission, and lumbar MRI was eventually done which showed focal lumbar disc bulges each 5 mm at the L4-L5 and L2-L3 levels, findings most consistent with osteomyelitis discitis L2-L3, L3-L4, and epidural abscess posterior to L1-L5 as above. Case was discussed with radiologist which did suspect epidural abscess, transfer for neurosurgical consult was unsuccessful as patient was asymptomatic. Patient is currently on IV vancomycin, acetazolamide 250 IV twice daily, citric acid/sodium citrate 30 mL p.o. twice daily, D5W 120 cc/h, sliding scale insulin, levothyroxine 175 mcg p.o. ACBR, lidocaine patch as needed, promethazine IV every 6 hours, simethicone as needed. Nephrology consulted for recurrent hypokalemia and metabolic acidosis. Home medications levothyroxine 100 mcg, lovastatin 40 mg, hydrochlorothiazide 25 mg, Metformin 500 mg twice daily, Jardiance 10 mg 05/30/2024: Patient seen and MedSurg, patient reports all of her symptoms started in March, before March she has no similar complaints, she was admitted to the ICU for similar complaints, reported feeling better and was discharged home. She complains that her nausea and vomiting started about 3 days after discharge from hospital in March. Reports multiple visits to the emergency department for same symptoms in the month of April where she was given IV fluids and was discharged on medication, she said that she was never able to take any p.o. medications, cannot tolerate p.o. meds and was not taking them since March ever since her symptoms started. Patient does report poor p.o. intake since March complicated with recurrent nausea and vomiting, today at bedside she reports severe difficulty swallowing solids to all different types of solids, reports that she has an episode of emesis as soon as she tries to swallow. Patient is able to tolerate liquids p.o., reports drinking water and reported drinking Ensure. Patient's diabetes was diagnosed in February earlier this year, she was started on Jardiance and metformin. She denies any sick contacts, any recent travel and she has not been sexually active in the last year. 05/31/2024: Patient seen at bedside, patient complains of nausea/vomiting right after swallowing. Talked to the patient in detail, patient has no family in [place] recently moved from [facility], possible component of depression, consider functional disorder. Patient is scheduled for gastric emptying study nuclear medicine scan today. Patient will be given 1 amp of bicarb, recommend starting patient on Megace and SSRI to treat possible underlying functional cause. 06/01/2024: Patient seen at bedside, patient reports 4 episodes of emesis yesterday. Patient able to drink apple juice today, patient is able to take Megace and SSRI, enforced the importance of taking SSRI daily to the patient, patient verbalizes understanding. Otherwise patient's bicarb today 18, potassium 3.1, sodium 147, patient will be given 1 amp of bicarb, encourage p.o. water intake, patient educated on importance of hydration, potassium replaced by primary team. Will continue to monitor patient. 06/01/2024: Patient seen at bedside, patient reports home vomiting and nausea improved, is able to drink Ensure protein drink. Reported 7 episodes of diarrhea. Reports feeling better compared to the condition on the admission. Labs show sodium 148, potassium 2.9, bicarb 19.3, improving, BUN less than 5, creatinine 0.9, GFR more than 60. No need to replete bicarb today. Potassium was replaced by primary team. Will continue to monitor daily CBC and CMP. Exam Vital Signs Temp Pulse Resp BP Pulse Ox O2 Del Method 96.7 F L 99 20 149/80 H 100 Room Air 06/02/24 07:34 06/02/24 07:34 06/02/24 07:34 06/02/24 07:34 06/02/24 07:34 06/02/24 07:34 Narrative Exam Physical Exam General: Awake and in no acute distress. Conversational and non-toxic appearing. HEENT: Normocephalic, atraumatic, mucous membranes dry. Heart: Regular rate and rhythm, no murmurs. Lungs: Clear to auscultation with no wheezing or crackles. Abdomen: Mild generalized tenderness noted, non-distended no guarding or rebound tenderness. Neurologic: Alert and oriented x3, no gross neurological deficit, and patient able to move all 4 extremities. Extremities: No edema. Skin: No rash or ecchymoses. Objective Labs 06/04/24 05:35 06/04/24 05:35 Labs: Laboratory Results - last 24 hr 06/02/24 09:10 WBC 6.6 RBC 2.81 L Hgb 8.5 L Hct 26.5 L MCV 94 MCH 30.2 MCHC 32.1 RDW Std Deviation 74.0 H Plt Count 339 D Neut % (Auto) 59 Lymph % (Auto) 18 [place] % (Auto) 15 H Eos % (Auto) 7 Baso % (Auto) 1 Neut # (Auto) 3.9 Lymph # (Auto) 1.2 [place] # (Auto) 1.0 H Eos # (Auto) 0.4 Baso # (Auto) 0.1 Immature Gran # (Auto) 0.02 H Absolute Nucleated RBC 0.00 Immature Gran % 0 Nucleated RBC % 0 Sodium 148 H Potassium 2.9 L Chloride 117 H Carbon Dioxide 19.3 L Anion Gap 12 BUN < 5 L Creatinine 0.9 Estim Creat Clear Calc 72.5 eGFR > 60 BUN/Creatinine Ratio 6 L Glucose 167 H D Calculated Osmolality 295 Calcium 9.4 Corrected Calcium 9.7 Phosphorus 3.7 Magnesium 1.8 Total Bilirubin 0.4 AST 25 ALT 16 Alkaline Phosphatase 47 Total Protein 6.2 Albumin 3.6 Globulin 2.6 Albumin/Globulin Ratio 1.4 TSH 8.57 H D Vancomycin Trough 15.1 H ABG Interpretation ABG results: 05/14/24 05/15/24 17:25 16:48 VBG pH 7.49 7.39 VBG pCO2 21 L 28 L VBG pO2 35 43 VBG Base Excess -5 L -7 L Quality Measures Quality Measures VTE prophylaxis (Heparin ) Assessment & Plan Assessment Current Active Medications: Generic Name Dose Route Start Last Admin Trade Name Freq PRN Reason Stop Dose Admin Acetaminophen 650 mg 05/15/24 18:27 05/31/24 14:37 Acetaminophen 325 Mg Tablet PO 06/14/24 18:26 650 mg Q4HR PRN Administration Fever >101 or pain 1-3 Hydrocodone Bitart/Acetaminophen 1 tab 05/31/24 16:33 06/02/24 09:03 Hydrocodone/Apap 5/325 Tablet PO 06/05/24 16:32 1 tab Q6HR PRN Administration Pain 4-7 or breakthrough pain Amitriptyline HCl 25 mg 06/01/24 21:00 06/01/24 22:13 Amitriptyline Hcl 25 Mg Tablet PO 07/01/24 20:59 25 mg HS MEGAN Administration Dextrose 25 ml 05/15/24 05:02 Dextrose 50%-Water Inj 50 Ml Syringe IV 06/14/24 05:01 Q15MIN PRN BG 50-70 responsive npo pt Dextrose 50 ml 05/15/24 05:02 Dextrose 50%-Water Inj 50 Ml Syringe IV 06/14/24 05:01 Q15MIN PRN BG <50 OR BG <70 & pt unresponsive Glucagon 1 mg 05/15/24 05:02 Glucagon Inj 1 Mg Vial IM Q15MIN PRN BG <70, and no IV access Ceftriaxone Sodium 2 gm/ 50 mls @ 100 mls/hr 05/28/24 21:00 06/02/24 09:04 Sodium Chloride IV 06/04/24 20:59 100 mls/hr Q12HR MEGAN Administration Vancomycin HCl/Dextrose 250 mls @ 120 mls/hr 05/31/24 10:00 06/02/24 11:12 Vancomycin/D5w 1,250 Mg Ivpb IV 06/07/24 09:59 120 mls/hr QDAY@1000 MEGAN Administration Protocol Potassium Chloride 40 meq/ 1,020 mls @ 200 mls/hr 06/02/24 10:53 06/02/24 11:33 Dextrose IV 06/02/24 21:04 200 mls/hr .Q5H6M MEGAN Administration Insulin Human Regular 0 unit 05/21/24 17:00 06/02/24 11:43 Insulin Hum Regular 1 Unit/0.01 Ml (Per Unit) SC 06/20/24 16:59 Not Given ACHS MEGAN Protocol Levothyroxine Sodium 50 mcg 05/31/24 09:00 06/02/24 09:04 Levothyroxine Inj 100 Mcg Vial IV 06/30/24 08:59 50 mcg QDAY MEGAN Administration Lidocaine 1 patch 05/21/24 09:21 05/31/24 21:07 Lidocaine 5% 1 Patch TOP 06/20/24 09:20 1 patch UD PRN Administration PAIN Protocol Megestrol Acetate 400 mg 05/31/24 09:15 06/02/24 09:04 Megestrol Acet Susp 400 Mg/10 Ml Udc PO 06/30/24 09:14 400 mg BID MEGAN Administration Metoclopramide HCl 5 mg 05/31/24 18:00 06/02/24 05:28 Metoclopramide Inj 5 Mg/Ml Vial 2 Ml IVP 06/30/24 17:59 5 mg Q6HR MEGAN Administration Protocol Ondansetron HCl 4 mg 05/19/24 09:48 05/31/24 23:50 Ondansetron Inj 2 Mg/Ml Inj 2 Ml IV 06/18/24 09:47 4 mg Q6HR PRN Administration NAUSEA OR VOMITING Protocol Pharmacy Consult 1 each 05/22/24 09:00 Vancomycin Pharmacy To Dose 1 Each Each IV 06/21/24 08:59 QDAY PRN CONSULT Promethazine HCl 25 mg 05/31/24 13:15 06/02/24 05:29 Promethazine Hcl 25 Mg Tablet PO 06/30/24 13:14 25 mg Q6HR MEGAN Administration Simethicone 80 mg 05/26/24 11:42 Simethicone 80 Mg Chew PO 06/25/24 11:41 QID PRN GAS Plan Summary: Ms Palumbo is a 59-year-old female with a past medical history of hypertension, diabetes, hypothyroidism, dermoid cyst and hyperlipidemia who was admitted on 05/14/2024 for intractable nausea, vomiting and diarrhea. Nephrology consulted for recurrent hypokalemia and metabolic acidosis. # Hypokalemia # Metabolic acidosis Patient continues to have recurrent episodes of nausea and vomiting, suspicion of hypokalemia secondary to GI losses. Patient currently on acetazolamide due to suspicion of pseudotumor cerebri, likely causing metabolic acidosis which was discontinued yesterday Patient reports episodes of vomiting immediately secondary to swallowing, solids>> liquids. Patient did have swallow study done in the past which the patient was not able to tolerate. Consider barium swallow. Consider functional disorder, consider p.o. liquid SSRI. Plan: -Patient's bicarb >18 no need to replenish bicarb today, patient reports she is unable to swallow Bicitra. -Currently on Megace and amitriptyline, patient was able to take the tablet yesterday. -Discontinued acetazolamide -Replace potassium as needed -Monitor renal panel in a.m. -Monitor bicarb in a.m. # Hypernatremia # Hypercalcemia # Dehydration Patient does report she is able to tolerate p.o. liquids, reports drinking water. Encourage p.o. water intake. # Hypothyroidism Currently on IV levothyroxine. #Epidural abscess #Osteomyelitis/discitis Management as per primary team Plan of care discussed with attending Dr. Hadley. Justine Robertson MD, PGY 1. Attending Provider Attestation/Addendum Patient seen and examined with resident physician Dr. Fletcher. Note reviewed, agree with findings and recommendations. Will give another amp of bicarb today. Replace IV potassium by primary team. Patient seems to be slightly better today. Still suspect component of depression as the cause for her nausea and vomiting. She is able to tolerate liquids. Gastric emptying scan normal.
--- NOTE | 2024-06-02 13:52 | PC.SS ---
Rounding: pt receiving IV ABX
--- NOTE | 2024-06-02 14:49 | ESPR_ITS ---
Documentation for date of: 06/02/24 Subjective Subjective Interval history: Patient evaluated bedside, reported improvement, was not nauseous last night ate 25% of meal from dinner, this morning the patient ate the fruits from breakfast, felt nauseous for a while but did not throw up able to keep food down. TSH markedly improved, contacted with IV levothyroxine for consistent dosing, C. difficile ordered for evaluation of diarrhea. Questions and concerns were answered. Exam Vital Signs Temp Pulse Resp BP Pulse Ox O2 Del Method 97.3 F 102 H 19 140/88 H 99 Room Air 06/02/24 11:59 06/02/24 12:00 06/02/24 11:59 06/02/24 11:59 06/02/24 11:59 06/02/24 11:59 Narrative Exam General: AAOx3, NAD, sitting up on bed when examined HEENT: Dry mucous membranes, conjunctiva clear, EOMI, PERRLA, Cardiovascular: S1, S2, radial pulses +2 bilat, RRR Pulmonary: CTAB bilat no cough, no wheezing GI: Slight tenderness to light palpitation, no guarding, rigidity, rebound tenderness or distension, bowel sounds present Extremities: No presence of trace or pitting edema in lower extremities bilaterally, dorsalis pedis pulses +2 bilaterally, L upper hand in site of IV erythematous and TTP Neuro: AAOx3, resting tremor in UE bilat Psych: Good judgement, thought and behavior. Cooperative Objective Labs 06/02/24 09:10 06/02/24 09:10 Labs: Laboratory Results - last 24 hr 06/02/24 09:10 WBC 6.6 RBC 2.81 L Hgb 8.5 L Hct 26.5 L MCV 94 MCH 30.2 MCHC 32.1 RDW Std Deviation 74.0 H Plt Count 339 D Neut % (Auto) 59 Lymph % (Auto) 18 [place] % (Auto) 15 H Eos % (Auto) 7 Baso % (Auto) 1 Neut # (Auto) 3.9 Lymph # (Auto) 1.2 [place] # (Auto) 1.0 H Eos # (Auto) 0.4 Baso # (Auto) 0.1 Immature Gran # (Auto) 0.02 H Absolute Nucleated RBC 0.00 Immature Gran % 0 Nucleated RBC % 0 Sodium 148 H Potassium 2.9 L Chloride 117 H Carbon Dioxide 19.3 L Anion Gap 12 BUN < 5 L Creatinine 0.9 Estim Creat Clear Calc 72.5 eGFR > 60 BUN/Creatinine Ratio 6 L Glucose 167 H D Calculated Osmolality 295 Calcium 9.4 Corrected Calcium 9.7 Phosphorus 3.7 Magnesium 1.8 Total Bilirubin 0.4 AST 25 ALT 16 Alkaline Phosphatase 47 Total Protein 6.2 Albumin 3.6 Globulin 2.6 Albumin/Globulin Ratio 1.4 TSH 8.57 H D Vancomycin Trough 15.1 H ABG Interpretation ABG results: 05/14/24 05/15/24 17:25 16:48 VBG pH 7.49 7.39 VBG pCO2 21 L 28 L VBG pO2 35 43 VBG Base Excess -5 L -7 L Quality Measures Quality Measures VTE prophylaxis (Heparin ) Assessment & Plan Assessment Current Active Medications: Generic Name Dose Route Start Last Admin Trade Name Freq PRN Reason Stop Dose Admin Acetaminophen 650 mg 05/15/24 18:27 05/31/24 14:37 Acetaminophen 325 Mg Tablet PO 06/14/24 18:26 650 mg Q4HR PRN Administration Fever >101 or pain 1-3 Hydrocodone Bitart/Acetaminophen 1 tab 05/31/24 16:33 06/02/24 09:03 Hydrocodone/Apap 5/325 Tablet PO 06/05/24 16:32 1 tab Q6HR PRN Administration Pain 4-7 or breakthrough pain Amitriptyline HCl 25 mg 06/01/24 21:00 06/01/24 22:13 Amitriptyline Hcl 25 Mg Tablet PO 07/01/24 20:59 25 mg HS MEGAN Administration Dextrose 25 ml 05/15/24 05:02 Dextrose 50%-Water Inj 50 Ml Syringe IV 06/14/24 05:01 Q15MIN PRN BG 50-70 responsive npo pt Dextrose 50 ml 05/15/24 05:02 Dextrose 50%-Water Inj 50 Ml Syringe IV 06/14/24 05:01 Q15MIN PRN BG <50 OR BG <70 & pt unresponsive Glucagon 1 mg 05/15/24 05:02 Glucagon Inj 1 Mg Vial IM Q15MIN PRN BG <70, and no IV access Ceftriaxone Sodium 2 gm/ 50 mls @ 100 mls/hr 05/28/24 21:00 06/02/24 09:04 Sodium Chloride IV 06/04/24 20:59 100 mls/hr Q12HR MEGAN Administration Vancomycin HCl/Dextrose 250 mls @ 120 mls/hr 05/31/24 10:00 06/02/24 11:12 Vancomycin/D5w 1,250 Mg Ivpb IV 06/07/24 09:59 120 mls/hr QDAY@1000 MEGAN Administration Protocol Potassium Chloride 40 meq/ 1,020 mls @ 200 mls/hr 06/02/24 10:53 06/02/24 11:33 Dextrose IV 06/02/24 21:04 200 mls/hr .Q5H6M MEGAN Administration Insulin Human Regular 0 unit 05/21/24 17:00 06/02/24 11:43 Insulin Hum Regular 1 Unit/0.01 Ml (Per Unit) SC 06/20/24 16:59 Not Given ACHS MEGAN Protocol Levothyroxine Sodium 50 mcg 05/31/24 09:00 06/02/24 09:04 Levothyroxine Inj 100 Mcg Vial IV 06/30/24 08:59 50 mcg QDAY MEGAN Administration Lidocaine 1 patch 05/21/24 09:21 05/31/24 21:07 Lidocaine 5% 1 Patch TOP 06/20/24 09:20 1 patch UD PRN Administration PAIN Protocol Megestrol Acetate 400 mg 05/31/24 09:15 06/02/24 09:04 Megestrol Acet Susp 400 Mg/10 Ml Udc PO 06/30/24 09:14 400 mg BID MEGAN Administration Metoclopramide HCl 5 mg 05/31/24 18:00 06/02/24 12:37 Metoclopramide Inj 5 Mg/Ml Vial 2 Ml IVP 06/30/24 17:59 5 mg Q6HR MEGAN Administration Protocol Ondansetron HCl 4 mg 05/19/24 09:48 05/31/24 23:50 Ondansetron Inj 2 Mg/Ml Inj 2 Ml IV 06/18/24 09:47 4 mg Q6HR PRN Administration NAUSEA OR VOMITING Protocol Pharmacy Consult 1 each 05/22/24 09:00 Vancomycin Pharmacy To Dose 1 Each Each IV 06/21/24 08:59 QDAY PRN CONSULT Promethazine HCl 25 mg 05/31/24 13:15 06/02/24 12:37 Promethazine Hcl 25 Mg Tablet PO 06/30/24 13:14 25 mg Q6HR MEGAN Administration Simethicone 80 mg 05/26/24 11:42 Simethicone 80 Mg Chew PO 06/25/24 11:41 QID PRN GAS Plan The patient came in with chief complaint of unrelenting nausea and vomiting after eating meals. Noted severe hypokalemia and metabolic acidosis, possible RTA type I, associated with neurological symptoms including horizontal nystagmus and binocular diplopia, weight loss, also complaining of back pain for the past few months. #Intractable nausea vomiting #Possible Gastroperesis vs pseudotumor cerebri vs Wernicke's syndrome #Diplopia - resolved #Nystagmus - resolved ? Gastroenterology on board, favoring gastroparesis as possible etiology, recommended NM gastric emptying study which was normal, of note patient was receiving centrally acting antiemetics but no prokinetics for the last 48 hours. Antiemetics per GI recommendations. ? Noted severe vitamin B1 deficiency, likely Wernicke's syndrome leading to symptoms of diplopia and nystagmus which are now resolved, after IV thiamine replacement. Likely etiology nutritional deficiency. ? Neurology was consulted for possible central no system because of nausea vomiting as well as nystagmus and diplopia during the initial clinical presentation, considered neuromyelitis optica as initial diagnosis due to demyelination pattern on brain imaging, but was later ruled out after further imaging which showed no demyelination of spinal cord typical of NMO. Consider diagnosis of atypical pseudotumor cerebri, but neurology is less impressed, patient continued on few days of acetazolamide, but due to worsening metabolic acidosis and no improvement in symptoms, acetazolamide was discontinued, after consulting nephrology who recommended against continuing acetazolamide in the setting of metabolic acidosis requiring IV bicarb. ? Also considered possible psychiatric causes as patient has atypical presentation able to tolerate liquids and certain fruits but unable to tolerate most solid diet, no dysphagia, no stricture on EGD, normal gastric emptying study. ? Considered alternative diagnosis like bulimia in the setting of depression, nephrology took the liberty of adding Megace and Zoloft, patient vomited Zoloft after first dose, started the patient on amitriptyline as part of gastroparesis treatment. May also help with depression. #Discitis?lumbar vertebra #Spinal epidural abscess ?During the clinical course and evaluation MRI lumbar spine showed concern for early spinal epidural abscess, and discitis of lumbar vertebra. Associated with neurological deficits including paresthesias bilateral lower extremities and right sided limb weakness, neurological exam shows objective weakness of the right lower extremity, also complaining of pain on right lower extremity movement in the hip joint. No bowel or bladder incontinence or saddle anesthesia. Currently patient ambulates with a walker. Transfer was attempted, but patient was denied transfer for neurosurgical intervention at [facility] and [facility]. Spoke to radiologist, who reiterated increased T2 enhancement of vertebral bodies as well as epidural layer around the lumbar vertebra. No definite abscess noted, no cord compression at this moment, repeated attempts to transfer for neurosurgery were unsuccessful. ?ID was consulted who recommended switching to ceftriaxone and doxycycline. Literature review shows spinal epidural abscess, common pathogen Staph aureus and two thirds of the cases and 20 to 50% of the cases can be MRSA. Currently on ceftriaxone 2 g daily and vancomycin, as patient is unable to tolerate p.o., and doxycycline is also remotely associated with pseudotumor cerebri. Patient will need IV antibiotics for consistent dosing anyways. #History of rheumatoid arthritis Patient has history of RA, typical swan-neck deformity in the right upper extremity, also reports small and large joint pains, as well as morning stiffness. Patient has unable to follow-up with rheumatology outpatient due to insurance issues. 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 Autoimmune disorders can also cause dysmotility syndromes in the esophagus, but patient has no dysphagia or abnormal gastric emptying. #Acute anemia ?Continued downtrend of hemoglobin, possible source for GI bleed, as well as possible anemia of chronic disease as well as phlebotomy, nominally increased reticulocyte count. # Non-anion gap metabolic acidosis secondary to GI losses #Hypokalemia #Possible proximal RTA type I versus GI losses # Initial presentation with severe hypokalemia requiring repeated electrolyte replacement IV n.p.o. for many days as well as concurrent metabolic acidosis. Urine anion gap normal, concern for possible RTA type I. Also possible metabolic acidosis as acetazolamide was added due to concern for pseudotumor cerebri. But later discontinued as no improvement in clinical symptoms and worsening metabolic acidosis by nephrology. #Diarrhea Patient has persistent diarrhea for the last few months, initial stool studies were unremarkable, currently complaining of 5-6 bowel movements daily consisting of loose watery stools. ? Ordered C. difficile toxin PCR Plan of care was discussed in attending Dr. Freddie Davis PGY2 Attending Provider Attestation/Addendum I have examined the patient, reviewed labs and imaging findings, discussed the case with the resident(s), and reviewed entered orders. I agree with the plan of care as outlined in this note, with these additional summaries/recommendations: Patient seen at bedside. No acute overnight events. Unfortunately patient continues to have poor oral intake secondary to intractable nausea with vomiting. Although for the first time patient has shown some improvement with special diet request and small portions. Gastric emptying study completed which was normal. Possible patient's intractable nausea may be secondary to somatization vs severe hypothyroidism vs functional disorder vs psychiatric component vs diabetic gastroparesis despite normal emptying study. Continue special diet request for small frequent meals with fruits, carrots, celery, ensure and grapes. Continue amitriptyline for possible depression and nausea and appears to have a positive response. Continue promethazine and Reglan as tolerated. Hypokalemia and metabolic acidosis persists. Gastroenterology following closely. We will continue to give electrolyte replacement for intractable hypokalemia. Continue IV Rocephin and vancomycin for epidural abscess plus osteomyelitis/discitis. Continue basal and bolus insulin for diabetes mellitus type 2. Repeat hematology and chemistry panel in AM. Dr. Frazier
--- NOTE | 2024-06-02 15:13 | ESPR_ITS ---
Documentation for date of: 06/02/24 Subjective Subjective Interval history: Nausea vomiting improving Exam Vital Signs Temp Pulse Resp BP Pulse Ox O2 Del Method 97.3 F 102 H 19 140/88 H 99 Room Air 06/02/24 11:59 06/02/24 12:00 06/02/24 11:59 06/02/24 11:59 06/02/24 11:59 06/02/24 11:59 Objective Labs 06/03/24 05:02 06/03/24 05:02 Labs: Laboratory Results - last 24 hr 06/02/24 09:10 WBC 6.6 RBC 2.81 L Hgb 8.5 L Hct 26.5 L MCV 94 MCH 30.2 MCHC 32.1 RDW Std Deviation 74.0 H Plt Count 339 D Neut % (Auto) 59 Lymph % (Auto) 18 [place] % (Auto) 15 H Eos % (Auto) 7 Baso % (Auto) 1 Neut # (Auto) 3.9 Lymph # (Auto) 1.2 [place] # (Auto) 1.0 H Eos # (Auto) 0.4 Baso # (Auto) 0.1 Immature Gran # (Auto) 0.02 H Absolute Nucleated RBC 0.00 Immature Gran % 0 Nucleated RBC % 0 Sodium 148 H Potassium 2.9 L Chloride 117 H Carbon Dioxide 19.3 L Anion Gap 12 BUN < 5 L Creatinine 0.9 Estim Creat Clear Calc 72.5 eGFR > 60 BUN/Creatinine Ratio 6 L Glucose 167 H D Calculated Osmolality 295 Calcium 9.4 Corrected Calcium 9.7 Phosphorus 3.7 Magnesium 1.8 Total Bilirubin 0.4 AST 25 ALT 16 Alkaline Phosphatase 47 Total Protein 6.2 Albumin 3.6 Globulin 2.6 Albumin/Globulin Ratio 1.4 TSH 8.57 H D Vancomycin Trough 15.1 H Impressions Impression: # Nausea vomiting improving Continue promethazine and Reglan ABG Interpretation ABG results: 05/14/24 05/15/24 17:25 16:48 VBG pH 7.49 7.39 VBG pCO2 21 L 28 L VBG pO2 35 43 VBG Base Excess -5 L -7 L Assessment & Plan A&P Narrative mild anemia presumptive gastroparesis with controlled dm dermoid tumor hypothyroid htn hld possible epidural abscess with neg cx on empiric vanco/zosyn ideally, this is drained or pt is referred for such so that if the referral is denied, please document any rationale for no intervention so we all can know why that is the case ok to change zosyn to rocephin and vanco to po doxy and see if other meds can be changed to po too. if empiric rx is to be the goal, then use agents that are supported by micro or are easy to use. she likely needs dermoid addressed at some point as well. will not see again unless requested as inpt current abx are more toxic and require more daily doses then alternative empiric rx. favor rocephin 2 gm iv daily and po doxy 100 bid thru 07/09 with weekly cbc, renal panel, esr and line removal at end of rx if process remains, please re visit drainage at end of iv run and extend abx will see prn. f/u with dr Reardon on the tpn. I generally do not provide that rx. Time Spent With Patient Time: Total time spent is greater than 50% in coordination of care (as documented) at patient's floor/unit and/or counseling patient:
--- NOTE | 2024-06-02 16:04 | PC.SS ---
File exchanged pt MAKENZIE to [facility]
[2024-06-02] MEDS: AMITRIPTYLINE HCL 25 MG TABLET PO (20:42)
--- NOTE | 2024-06-02 23:35 | VVPN_ITS ---
Telemedicine visit statement This visit was conducted with the use of phone was obtained on 06/02/24 at 2335. Documentation for date of: 06/02/24 Subjective Subjective Interval history: Patient is in MedSurg. Still with pain in the lower back and right lower extremity. She is tolerating oral diet better, needing to take pain meds often. Virtual exam Vital Signs Temp Pulse Resp BP Pulse Ox O2 Del Method 97.8 F 99 16 132/81 H 98 Room Air 06/02/24 20:00 06/02/24 20:00 06/02/24 20:00 06/02/24 20:00 06/02/24 20:00 06/02/24 20:00 Objective Labs 06/08/24 05:25 06/08/24 05:25 Labs: Laboratory Results - last 24 hr 06/02/24 09:10 WBC 6.6 RBC 2.81 L Hgb 8.5 L Hct 26.5 L MCV 94 MCH 30.2 MCHC 32.1 RDW Std Deviation 74.0 H Plt Count 339 D Neut % (Auto) 59 Lymph % (Auto) 18 [place] % (Auto) 15 H Eos % (Auto) 7 Baso % (Auto) 1 Neut # (Auto) 3.9 Lymph # (Auto) 1.2 [place] # (Auto) 1.0 H Eos # (Auto) 0.4 Baso # (Auto) 0.1 Immature Gran # (Auto) 0.02 H Absolute Nucleated RBC 0.00 Immature Gran % 0 Nucleated RBC % 0 Sodium 148 H Potassium 2.9 L Chloride 117 H Carbon Dioxide 19.3 L Anion Gap 12 BUN < 5 L Creatinine 0.9 Estim Creat Clear Calc 72.5 eGFR > 60 BUN/Creatinine Ratio 6 L Glucose 167 H D Calculated Osmolality 295 Calcium 9.4 Corrected Calcium 9.7 Phosphorus 3.7 Magnesium 1.8 Total Bilirubin 0.4 AST 25 ALT 16 Alkaline Phosphatase 47 Total Protein 6.2 Albumin 3.6 Globulin 2.6 Albumin/Globulin Ratio 1.4 TSH 8.57 H D Vancomycin Trough 15.1 H ABG Interpretation ABG results: 05/14/24 05/15/24 17:25 16:48 VBG pH 7.49 7.39 VBG pCO2 21 L 28 L VBG pO2 35 43 VBG Base Excess -5 L -7 L Assessment & Plan Assessment #Epidural abscess #Osteomyelitis/discitis #Intractable nausea and vomiting: resolved. MRI brain did not show any significant white matter changes, not consistent with demyelinating disease. MRI of the C-spine and T-spine: Did not show any evidence of demyelination as seen in neuromyelitis optica spectrum disorder. Abx asper ID specialist
[2024-06-03] VITALS: BP 145/84; PULSE 97; PULSE 98; RESP 18; TEMP 36.2; O2SAT 98
[2024-06-03 04:00] VITALS: BP 137/81; PULSE 99; RESP 20; TEMP 36.4; O2SAT 97
[2024-06-03 05:51] LABS: Basophils % (Auto) 1 % (0-2.5); Eosinophils # (Auto) 0.5 Thou/mm3 (0.0-0.5); Eosinophils % (Auto) 8 % (0-10); Hematocrit 24.7 % (36.0-46.0); Immature Granulocytes % (Auto) 1 % (0-0); Immature Granulocytes Auto 0.03 Thou/mm3 (0.00-0.00); Lymphocytes # (Auto) 1.4 Thou/mm3 (1.0-4.8); Lymphocytes % (Auto) 24 % (10-50); Mean Corpuscular HGB Conc 32.4 g/dl (31.0-37.0); Mean Corpuscular Hemoglobin 30.8 pg (25.0-35.0); Mean Corpuscular Volume 95 fL (80-100); Monocytes # (Auto) 0.9 Thou/mm3 (0.0-0.8); Monocytes % (Auto) 14 % (0-12); Neutrophils # (Auto) 3.2 Thou/mm3 (1.8-7.7); Neutrophils % (Auto) 53 % (37-80); Nucleated Red Blood Cell % 0 /100 WBC (0); Platelet Count 315 Thou/mm3 (140-440); RDW Standard Deviation 72.8 fL (36.4-46.3)
[2024-06-03] MEDS: PROMETHAZINE HCL 25 MG TABLET PO ×4 (05:54→23:38)
[2024-06-03] MEDS: METOCLOPRAMIDE INJ 5 MG/ML VIAL 2 ML IVP ×4 (05:55→23:38)
[2024-06-03 06:28] LABS: Alanine Aminotransferase 13 U/L (10-49); Albumin, Serum 3.6 gm/dL (3.5-5.0); Albumin/Globulin Ratio 1.5 (1.2-2.2); Alkaline Phosphatase 47 U/L (46-116); Anion Gap 11 (7-16); Aspartate Amino Transferase 20 U/L (0-34); BUN/Creatinine Ratio 6 Ratio (12-20); Bilirubin,Total 0.4 mg/dL (0.3-1.2); Blood Urea Nitrogen < 5 mg/dL (9-23); Calcium 9.2 mg/dL (8.3-10.6); Calcium (Corrected) 9.5 mg/dL (8.5-10.1); Carbon Dioxide 18.6 mMol/L (20.0-31.0); Chloride 113 mMol/L (98-107); Creatinine (Component) 0.9 mg/dL (0.6-1.3); Estimated Creatinine Clearance 72.1 mL/min (>60); Globulin 2.4 gm/dL (2.3-3.5); Glucose 97 mg/dL (74-106); Magnesium 1.7 mg/dL (1.6-2.6); Osmolality,Calculated 282 (275-295); Phosphorous 4.9 mg/dL (2.4-5.1); Sodium 143 mMol/L (136-145); eGFR > 60 See Note
[2024-06-03 08:00] VITALS: BP 166/93; PULSE 102; PULSE 95; RESP 20; TEMP 36.3; O2SAT 98
[2024-06-03] MEDS: LEVOTHYROXINE INJ 100 mCg VIAL 50 MCG IV (08:48)
[2024-06-03] MEDS: cefTRIAXone 2 GM in SODIUM CHLORIDE 0.9% (P) 50 ML IV ×2 (08:51→20:58)
[2024-06-03] MEDS: MEGESTROL ACET SUSP 400 MG/10 ML UDC PO ×2 (08:55→20:57)
[2024-06-03] MEDS: POTASSIUM CHL 10 mEq IVPB 10 MEQ/100 ML BAG 100 MEQ IV ×4 (09:02→12:23)
[2024-06-03] MEDS: Magnesium Sulfate 2 GM Ivpb 2 GM/50 ML BAG IV (09:04)
--- NOTE | 2024-06-03 09:33 | PC.SS ---
Addendum entered by Aminah Rodrigues 06/03/24 12:50: Follow up note: Pt is not meeting nutrition requirements and is Hypokalemia. Original Note: Follow up note: Pt is requiring IV antibiotic, Rocephin 2 grm 1 Xday until Jul 09, 2023. SS has confirmed with Karina at [facility] insurance authorization is effective until 04-05-24. SS has sent updated inquiry to [facility] using [facility] to extended insurance authorization.
[2024-06-03] MEDS: VANCOMYCIN/D5W 1,250 MG IVPB 250 ML 120 MG IV (09:53)
--- NOTE | 2024-06-03 11:09 | PD.NEPHPROG ---
Documentation for date of: 06/03/24 Subjective Subjective Interval history: Ms Palumbo is a 59-year-old female with a past medical history of hypertension, diabetes, hypothyroidism, dermoid cyst and hyperlipidemia who was admitted on 05/14/2024 for intractable nausea, vomiting and diarrhea. Patient was recently admitted at [facility] March for evaluation of starvation ketosis, was taken to the ICU for further evaluation, did not require insulin drip and was transferred back to floors for evaluation of tractable nausea and vomiting. Patient was unable to tolerate gastric emptying study in the past, and EGD findings showed reflux esophagitis and was discharged on Reglan and erythromycin p.o. When coming to the ED this time she arrived afebrile and hypertensive. She was worked up and Labs showed WBC 6.8 Hgb 14.1 PLT 284 NA 130 5K2.5 CL 99 bicarb 18.2 anion gap 18 BUN 5 CR 0.9 glucose 104 calcium 10.2 lipase 71 beta hydroxybutyrate 4.6 UA showed 1+ protein 3+ ketones 12 WBC, urine hCG positive. VBG showed a pCO2 of 21 with a base excess of -5. EKG showed sinus rhythm with QTc of 468. The patient received 2.7 L of IV fluids, Zofran and potassium and was admitted for management of intractable nausea and vomiting/starvation ketosis. While on the floors patient was having persistent hypokalemia, despite having not vomited. With the progression of hospital course patient had multiple episodes of vomiting which worsened her hypokalemia, patient continues to receive potassium replacement. A number of agents including promethazine, Reglan, Zofran, erythromycin, Ativan and capsaicin were given to patient to manage her symptoms. Patient has on and off episodes of nausea and vomiting which she said can happen at any time, awakens her from sleep, reports occurring with certain fluids as well. Patient unable to tolerate p.o. medication. GI and neurology were consulted for further evaluation of etiology of persistent nausea, vomiting and diarrhea and newly seen horizontal bilateral nystagmus and blurry vision. Specialist recommendations included symptomatic control and further imaging studies. MRI of C-spine, T-spine and brain were done to look for any ideology such as mass effect, multiple sclerosis or any other pathology that could be affecting brain producing stimulation of vomiting center, but those images were unremarkable. Another cause that was pursued was possible relation of dermoid cyst relation to nausea and vomiting. Oncology was consulted who had recommended patient to get an [employer] consult. [employer] was consulted, recommended tumor markers and MRI of abdomen pelvis. Abdomen pelvis showed a 5.6 x 6.0 fat-containing mass consistent with dermoid tumor which did not require any surgical intervention at the time. Serum tumor markers were obtained including beta-hCG, AFP, CEA, CA125 which were all unremarkable although patient had beta-hCG of 10 in the urine. Patient did report back pain throughout the course of admission, and lumbar MRI was eventually done which showed focal lumbar disc bulges each 5 mm at the L4-L5 and L2-L3 levels, findings most consistent with osteomyelitis discitis L2-L3, L3-L4, and epidural abscess posterior to L1-L5 as above. Case was discussed with radiologist which did suspect epidural abscess, transfer for neurosurgical consult was unsuccessful as patient was asymptomatic. Patient is currently on IV vancomycin, acetazolamide 250 IV twice daily, citric acid/sodium citrate 30 mL p.o. twice daily, D5W 120 cc/h, sliding scale insulin, levothyroxine 175 mcg p.o. ACBR, lidocaine patch as needed, promethazine IV every 6 hours, simethicone as needed. Nephrology consulted for recurrent hypokalemia and metabolic acidosis. Home medications levothyroxine 100 mcg, lovastatin 40 mg, hydrochlorothiazide 25 mg, Metformin 500 mg twice daily, Jardiance 10 mg 05/30/2024: Patient seen and MedSurg, patient reports all of her symptoms started in March, before March she has no similar complaints, she was admitted to the ICU for similar complaints, reported feeling better and was discharged home. She complains that her nausea and vomiting started about 3 days after discharge from hospital in March. Reports multiple visits to the emergency department for same symptoms in the month of April where she was given IV fluids and was discharged on medication, she said that she was never able to take any p.o. medications, cannot tolerate p.o. meds and was not taking them since March ever since her symptoms started. Patient does report poor p.o. intake since March complicated with recurrent nausea and vomiting, today at bedside she reports severe difficulty swallowing solids to all different types of solids, reports that she has an episode of emesis as soon as she tries to swallow. Patient is able to tolerate liquids p.o., reports drinking water and reported drinking Ensure. Patient's diabetes was diagnosed in February earlier this year, she was started on Jardiance and metformin. She denies any sick contacts, any recent travel and she has not been sexually active in the last year. 05/31/2024: Patient seen at bedside, patient complains of nausea/vomiting right after swallowing. Talked to the patient in detail, patient has no family in [place] recently moved from [facility], possible component of depression, consider functional disorder. Patient is scheduled for gastric emptying study nuclear medicine scan today. Patient will be given 1 amp of bicarb, recommend starting patient on Megace and SSRI to treat possible underlying functional cause. 06/01/2024: Patient seen at bedside, patient reports 4 episodes of emesis yesterday. Patient able to drink apple juice today, patient is able to take Megace and SSRI, enforced the importance of taking SSRI daily to the patient, patient verbalizes understanding. Otherwise patient's bicarb today 18, potassium 3.1, sodium 147, patient will be given 1 amp of bicarb, encourage p.o. water intake, patient educated on importance of hydration, potassium replaced by primary team. Will continue to monitor patient. 06/02/2024: Patient seen at bedside, patient reports home vomiting and nausea improved, is able to drink Ensure protein drink. Reported 7 episodes of diarrhea. Reports feeling better compared to the condition on the admission. Labs show sodium 148, potassium 2.9, bicarb 19.3, improving, BUN less than 5, creatinine 0.9, GFR more than 60. No need to replete bicarb today. Potassium was replaced by primary team. Will continue to monitor daily CBC and CMP. 06/03/2024 patient resting comfortably her nausea vomiting markedly improved. She is able to tolerate solid diet today.Potassium and bicarbonate are slightly better. Creatinine is normal. Patient able to tolerate Megace. Review of Systems Review of Systems Narrative Review of Systems: ROS: -CONSTITUTIONAL: Denies fever and chills. Positive for weight loss -HEENT: Denies changes in vision and hearing. -RESPIRATORY: Denies SOB and cough. -CV: Denies palpitations and Chest Pain. -GI: Denies constipation and diarrhea. Nausea vomiting markedly improved. -: Denies dysuria and urinary frequency. -MSK: Denies myalgia and joint pain. -SKIN: Denies rash and pruritus. -NEUROLOGICAL: Denies syncope. -PSYCHIATRIC: Denies recent changes in mood. Denies anxiety and depression. Exam Vital Signs Temp Pulse Resp BP Pulse Ox O2 Del Method 36.3 C 102 H 20 166/93 H 98 Room Air 06/03/24 08:00 06/03/24 08:00 06/03/24 08:00 06/03/24 08:00 06/03/24 08:00 06/03/24 08:00 Narrative Exam Physical Exam General: Awake and in no acute distress. HEENT: Normocephalic, atraumatic, mucous membranes dry. Heart: Regular rate and rhythm, no murmurs. Lungs: Clear to auscultation with no wheezing or crackles. Abdomen: Nontender non-distended no guarding or rebound tenderness. Neurologic: Alert and oriented x3, no gross neurological deficit, and patient able to move all 4 extremities. Extremities: No edema. Skin: No rash or ecchymoses. Objective Labs 06/04/24 05:35 06/04/24 05:35 Labs: Laboratory Results - last 24 hr 06/03/24 05:02 WBC 6.0 RBC 2.60 L Hgb 8.0 L Hct 24.7 L MCV 95 MCH 30.8 MCHC 32.4 RDW Std Deviation 72.8 H Plt Count 315 Neut % (Auto) 53 Lymph % (Auto) 24 [place] % (Auto) 14 H Eos % (Auto) 8 Baso % (Auto) 1 Neut # (Auto) 3.2 Lymph # (Auto) 1.4 [place] # (Auto) 0.9 H Eos # (Auto) 0.5 Baso # (Auto) 0.0 Immature Gran # (Auto) 0.03 H Absolute Nucleated RBC 0.00 Immature Gran % 1 H Nucleated RBC % 0 Sodium 143 Potassium 3.0 L Chloride 113 H Carbon Dioxide 18.6 L Anion Gap 11 BUN < 5 L Creatinine 0.9 Estim Creat Clear Calc 72.1 eGFR > 60 BUN/Creatinine Ratio 6 L Glucose 97 D Calculated Osmolality 282 Calcium 9.2 Corrected Calcium 9.5 Phosphorus 4.9 Magnesium 1.7 Total Bilirubin 0.4 AST 20 ALT 13 Alkaline Phosphatase 47 Total Protein 6.0 Albumin 3.6 Globulin 2.4 Albumin/Globulin Ratio 1.5 ABG Interpretation ABG results: 05/14/24 05/15/24 17:25 16:48 VBG pH 7.49 7.39 VBG pCO2 21 L 28 L VBG pO2 35 43 VBG Base Excess -5 L -7 L Assessment & Plan Assessment and plan (1) Lumbar disc disease: Status: Acute (2) Intractable nausea and vomiting: Status: Resolved (3) Diabetes mellitus type 2, insulin dependent: Status: Acute Additional Assessment & Plan Additional Plan: Ms Palumbo is a 59-year-old female with a past medical history of hypertension, diabetes, hypothyroidism, dermoid cyst and hyperlipidemia who was admitted on 05/14/2024 for intractable nausea, vomiting and diarrhea. Nephrology consulted for recurrent hypokalemia and metabolic acidosis. # Hypokalemia # Metabolic acidosis Marked improvement in nausea, vomiting. So far all the studies are negative. Suspect somatization. Continue with Megace. # Hypernatremia # Hypercalcemia # Dehydration Improved # Hypothyroidism Currently on IV levothyroxine. #Epidural abscess #Osteomyelitis/discitis Management as per primary team Patient with PICC line. Discharge planning per primary team Consider medication for depression. Quality - progress note Quality Measures Quality Measures: VTE prophylaxis Reason for Continued Stay Reason for Continued Stay: further monitoring
--- NOTE | 2024-06-03 11:16 | XR_ITS ---
Examination: DOMINGO, hepatobiliary radioisotope scan Gallbladder ejection fraction study. Date and time of exam: June 04, 2024 1327 hrs. Indications: Onset intractable nausea vomiting and diarrhea beginning May 14, 2024 Technique: 6.3 mCi of 99M Hepatolite administered. Serial imaging then obtained from immediate through 60 minutes. 1.8 mcg selective catheter Kinevac administered for gallbladder ejection fraction study. Findings: Radioisotope activity within the liver is reasonably homogenous. Gallbladder, common bile duct small bowel activity noted Impression: Gallbladder activity Abnormal gallbladder ejection fraction, 23%, normal greater than 35%
[2024-06-03] MEDS: HYDROcodone/APAP 5/325 TABLET 1 TAB PO ×2 (11:28→23:38)
--- NOTE | 2024-06-03 11:35 | ESPR_ITS ---
Documentation for date of: 06/03/24 Subjective Subjective Interval history: Promethazine 25 mg p.o. 4 times daily and Reglan 5 mg IV push Q6 he is working Patient has not had any vomiting Exam Vital Signs Temp Pulse Resp BP Pulse Ox O2 Del Method 97.4 F 102 H 20 166/93 H 98 Room Air 06/03/24 08:00 06/03/24 08:00 06/03/24 08:00 06/03/24 08:00 06/03/24 08:00 06/03/24 08:00 Objective Labs 06/03/24 05:02 06/03/24 05:02 Labs: Laboratory Results - last 24 hr 06/03/24 05:02 WBC 6.0 RBC 2.60 L Hgb 8.0 L Hct 24.7 L MCV 95 MCH 30.8 MCHC 32.4 RDW Std Deviation 72.8 H Plt Count 315 Neut % (Auto) 53 Lymph % (Auto) 24 [place] % (Auto) 14 H Eos % (Auto) 8 Baso % (Auto) 1 Neut # (Auto) 3.2 Lymph # (Auto) 1.4 [place] # (Auto) 0.9 H Eos # (Auto) 0.5 Baso # (Auto) 0.0 Immature Gran # (Auto) 0.03 H Absolute Nucleated RBC 0.00 Immature Gran % 1 H Nucleated RBC % 0 Sodium 143 Potassium 3.0 L Chloride 113 H Carbon Dioxide 18.6 L Anion Gap 11 BUN < 5 L Creatinine 0.9 Estim Creat Clear Calc 72.1 eGFR > 60 BUN/Creatinine Ratio 6 L Glucose 97 D Calculated Osmolality 282 Calcium 9.2 Corrected Calcium 9.5 Phosphorus 4.9 Magnesium 1.7 Total Bilirubin 0.4 AST 20 ALT 13 Alkaline Phosphatase 47 Total Protein 6.0 Albumin 3.6 Globulin 2.4 Albumin/Globulin Ratio 1.5 Impressions Impression: # Nausea vomiting improving Continue current management ABG Interpretation ABG results: 05/14/24 05/15/24 17:25 16:48 VBG pH 7.49 7.39 VBG pCO2 21 L 28 L VBG pO2 35 43 VBG Base Excess -5 L -7 L Assessment & Plan A&P Narrative mild anemia presumptive gastroparesis with controlled dm dermoid tumor hypothyroid htn hld possible epidural abscess with neg cx on empiric vanco/zosyn ideally, this is drained or pt is referred for such so that if the referral is denied, please document any rationale for no intervention so we all can know why that is the case ok to change zosyn to rocephin and vanco to po doxy and see if other meds can be changed to po too. if empiric rx is to be the goal, then use agents that are supported by micro or are easy to use. she likely needs dermoid addressed at some point as well. will not see again unless requested as inpt current abx are more toxic and require more daily doses then alternative empiric rx. favor rocephin 2 gm iv daily and po doxy 100 bid thru 07/09 with weekly cbc, renal panel, esr and line removal at end of rx if process remains, please re visit drainage at end of iv run and extend abx will see prn. f/u with dr Raerdon on the tpn. I generally do not provide that rx. Time Spent With Patient Time: Total time spent is greater than 50% in coordination of care (as documented) at patient's floor/unit and/or counseling patient:
[2024-06-03] MEDS: MULTIVITAMINS TABLET 1 TAB PO (11:36)
[2024-06-03 12:00] VITALS: BP 139/86; PULSE 91; PULSE 99; RESP 19; TEMP 36.8; O2SAT 98
--- NOTE | 2024-06-03 14:35 | ESPR_ITS ---
<Statement entered by Иван Boland MD - 06/03/24 15:44> Patient was seen and examined at bedside. Patient reported that she has not vomiting for the past 3 days even though she feels nauseous at some point when she eats which is resolved by antiemetic medications especially promethazine tablets. Talk to the dietitian today they mentioned that patient cannot meet her caloric needs due to the dietary restrictions. For that reason, we instructed the patient to request any food that she feels that she is craving and also can cause less nausea or provoke any vomiting. Patient still have soft stool, stool study are still pending including C. difficile, stool culture, parasite and ova, and stool culture. On examination patient was noticed to have worsening tenderness in the right upper quadrant. For that reason, we repeated HIDA scan tomorrow. Patient will be n.p.o. for the scan. - Patient's plan and care discussed with my attending, Dr. Justin Boland MD Internal Medicine PGY-2 Documentation for date of: 06/03/24 Subjective Subjective Interval history: Patient examined at bedside today. No acute overnight events. Patient has not vomited in 3 days. Is tolerating p.o., ate a enchilada yesterday. Says that the new medicine that she is been taking has been helping her. Says that she feels stronger today. Still experiencing diarrhea at this time. No other complaints at this time Exam Vital Signs Temp Pulse Resp BP Pulse Ox O2 Del Method 98.2 F 91 19 139/86 H 98 Room Air 06/03/24 12:06/03/24 12:06/03/24 12:00 06/03/24 12:00 06/03/24 12:00 06/03/24 12:00 Narrative Exam General: AAOx3, NAD, sitting up on bed when examined HEENT: Dry mucous membranes, conjunctiva clear, EOMI, PERRLA, Cardiovascular: S1, S2, radial pulses +2 bilat, RRR Pulmonary: CTAB bilat no cough, no wheezing GI: tenderness to light palpitation in both RUQ and LUQ, no guarding, rebound tenderness or distension, bowel sounds present Extremities: No presence of trace or pitting edema in lower extremities bilaterally, dorsalis pedis pulses +2 bilaterally, L upper hand in site of IV erythematous and TTP Neuro: AAOx3, resting tremor in UE bilat Psych: Good judgement, thought and behavior. Cooperative Objective Labs 06/05/24 07:30 06/05/24 07:30 Labs: Laboratory Results - last 24 hr 06/03/24 05:02 WBC 6.0 RBC 2.60 L Hgb 8.0 L Hct 24.7 L MCV 95 MCH 30.8 MCHC 32.4 RDW Std Deviation 72.8 H Plt Count 315 Neut % (Auto) 53 Lymph % (Auto) 24 [place] % (Auto) 14 H Eos % (Auto) 8 Baso % (Auto) 1 Neut # (Auto) 3.2 Lymph # (Auto) 1.4 [place] # (Auto) 0.9 H Eos # (Auto) 0.5 Baso # (Auto) 0.0 Immature Gran # (Auto) 0.03 H Absolute Nucleated RBC 0.00 Immature Gran % 1 H Nucleated RBC % 0 Sodium 143 Potassium 3.0 L Chloride 113 H Carbon Dioxide 18.6 L Anion Gap 11 BUN < 5 L Creatinine 0.9 Estim Creat Clear Calc 72.1 eGFR > 60 BUN/Creatinine Ratio 6 L Glucose 97 D Calculated Osmolality 282 Calcium 9.2 Corrected Calcium 9.5 Phosphorus 4.9 Magnesium 1.7 Total Bilirubin 0.4 AST 20 ALT 13 Alkaline Phosphatase 47 Total Protein 6.0 Albumin 3.6 Globulin 2.4 Albumin/Globulin Ratio 1.5 ABG Interpretation ABG results: 05/14/24 05/15/24 17:25 16:48 VBG pH 7.49 7.39 VBG pCO2 21 L 28 L VBG pO2 35 43 VBG Base Excess -5 L -7 L Quality Measures Quality Measures VTE prophylaxis (Heparin ) Assessment & Plan Assessment Current Active Medications: Generic Name Dose Route Start Last Admin Trade Name Freq PRN Reason Stop Dose Admin Acetaminophen 650 mg 05/15/24 18:27 05/31/24 14:37 Acetaminophen 325 Mg Tablet PO 06/14/24 18:26 650 mg Q4HR PRN Administration Fever >101 or pain 1-3 Hydrocodone Bitart/Acetaminophen 1 tab 05/31/24 16:33 06/03/24 11:28 Hydrocodone/Apap 5/325 Tablet PO 06/05/24 16:32 1 tab Q6HR PRN Administration Pain 4-7 or breakthrough pain Amitriptyline HCl 25 mg 12/21/24 21:00 06/02/24 20:42 Amitriptyline Hcl 25 Mg Tablet PO 07/01/24 20:59 25 mg HS MEGAN Administration Dextrose 25 ml 05/15/24 05:02 Dextrose 50%-Water Inj 50 Ml Syringe IV 06/14/24 05:01 Q15MIN PRN BG 50-70 responsive npo pt Dextrose 50 ml 05/15/24 05:02 Dextrose 50%-Water Inj 50 Ml Syringe IV 06/14/24 05:01 Q15MIN PRN BG <50 OR BG <70 & pt unresponsive Glucagon 1 mg 05/15/24 05:02 Glucagon Inj 1 Mg Vial IM Q15MIN PRN BG <70, and no IV access Ceftriaxone Sodium 2 gm/ 50 mls @ 100 mls/hr 05/28/24 21:00 06/03/24 08:51 Sodium Chloride IV 06/04/24 20:59 100 mls/hr Q12HR MEGAN Administration Vancomycin HCl/Dextrose 250 mls @ 120 mls/hr 05/31/24 10:00 06/03/24 09:53 Vancomycin/D5w 1,250 Mg Ivpb IV 06/07/24 09:59 120 mls/hr QDAY@1000 MEGAN Administration Protocol Insulin Human Regular 0 unit 05/21/24 17:00 06/03/24 11:30 Insulin Hum Regular 1 Unit/0.01 Ml (Per Unit) SC 06/20/24 16:59 Not Given ACHS MEGAN Protocol Levothyroxine Sodium 50 mcg 05/31/24 09:00 06/03/24 08:48 Levothyroxine Inj 100 Mcg Vial IV 06/30/24 08:59 50 mcg QDAY MEGAN Administration Lidocaine 1 patch 05/21/24 09:21 05/31/24 21:07 Lidocaine 5% 1 Patch TOP 06/20/24 09:20 1 patch UD PRN Administration PAIN Protocol Megestrol Acetate 400 mg 05/31/24 09:15 06/03/24 08:55 Megestrol Acet Susp 400 Mg/10 Ml Udc PO 06/30/24 09:14 400 mg BID MEGAN Administration Metoclopramide HCl 5 mg 05/31/24 18:00 06/03/24 11:25 Metoclopramide Inj 5 Mg/Ml Vial 2 Ml IVP 06/30/24 17:59 5 mg Q6HR MEGAN Administration Protocol Multivitamins 1 tab 06/03/24 11:30 06/03/24 11:36 Multivitamins Tablet PO 07/03/24 11:29 1 tab QDAY MEGAN Administration Ondansetron HCl 4 mg 05/19/24 09:48 05/31/24 23:50 Ondansetron Inj 2 Mg/Ml Inj 2 Ml IV 06/18/24 09:47 4 mg Q6HR PRN Administration NAUSEA OR VOMITING Protocol Pharmacy Consult 1 each 05/22/24 09:00 Vancomycin Pharmacy To Dose 1 Each Each IV 06/21/24 08:59 QDAY PRN CONSULT Promethazine HCl 25 mg 05/31/24 13:15 06/03/24 11:28 Promethazine Hcl 25 Mg Tablet PO 06/30/24 13:14 25 mg Q6HR MEGAN Administration Simethicone 80 mg 05/26/24 11:42 Simethicone 80 Mg Chew PO 06/25/24 11:41 QID PRN GAS Sodium Chloride 2.5 ml 06/04/24 09:00 Sodium Chloride 0.9% Inj 10 Ml Vial IV 07/04/24 08:59 DAILY MEGAN Plan 59-year-old female with a past medical history of hypertension, diabetes, hypothyroidism and hyperlipidemia who presented to the ED on 05/14/2024 with abdominal pain, nausea and vomiting that has persisted over the last 2 months. The patient has been admitted for management of intractable nausea and vomiting, starvation ketosis. Patient on imaging was found to have spinal epidural abscess with multiple attempts to transfer the patient to a nursing care various institutions infiltrative patient and recommend conservative management. #Intractable nausea and vomiting #? atypical pseudotumor cerebri #? Cyclic vomiting syndrome Patient with diplopia/blurry vision and headache raising suspicion for pseudotumor cerebri subsequently started on acetazolamide with improvement Lumbar puncture unable to be done due to spinal epidural abscess Patient currently on PPN and clear liquid diet Spoke to neurology Dr Hernandez, states this may be atypical visitation of the arrhythmia , recommends to continue Diamox see patient improves, we cannot do LP at this time because of epidural abscess. Will continue with Diamox to see if patient's symptoms improve, if improved, patient likely has pseudotumor cerebri Turned off TPN, patient is still vomiting At this point we will retry for gastric emptying study to see if there is a motility issue Spoke with Dr. Reardon, wants to proceed with gastric emptying study and go from there for further imaging/workup for possible transfer And concerns with pseudotumor cerebri, cannot perform LP until epidural resolves and patient will need 6 weeks of antibiotics Gastric emptying study shows normal motility Spoke with GI, recommends new antiemetic regimen before considering other workup Nephrology thinks that patient may have nausea and vomiting related to depression Pt is able to tolerate water, clear ensure and apple juice, but nothing else, vomits from any food especially eggs Patient tolerates apple juice, cold water, Ensure clear apple flavor, fruits and veggies including apples, carrots, grapes, celery, and jello At this point patient needs transferred, we will see what GI thinks from the standpoint. Patient experiencing more tenderness in right upper quadrant and left upper quadrant, will workup further w/ HIDA Plan: ?Special diet request -Zofran as needed -Reglan 5 mg IV every 6 hours ?Promethazine 25 mg p.o. every 6 hours -Encourage p.o. intake as tolerated, Megace added by nephrology ?Continue amitriptyline, -Neurology on case appreciate recommendations -GI on the case appreciate recommendations ?Follow-up HIDA scan w/Pharm #Epidural abscess #Osteomyelitis/discitis Found on lumbar MRI Discussed case with multiple institutions rejected the case recommended conservative management Will continue trying to send the patient for neurosurgical evaluation Currently, patient denies any lower extremity weakness, saddle anesthesia and denies any fecal or urinary incontinence ID recommends for pt to have drainage of abscess at some point ID recommends 2 g daily Rocephin and doxycycline, however patient cannot take doxycycline as she already has GI upset Will eventually adjust rocephin 2g daily once pt is d/c to SNF Plan: -On IV vancomycin, and Rocephin 2g IV BID -ID consulted, appreciate recommendations -Continue to pursue transfer #Metabolic acidosis Likely secondary to acetazolamide Current bicarb ~19 Plan: ?Nephrology on consult, appreciate recs ?Discontinue Diamox #Electrolyte abnormalities #Hypokalemia secondary to #GI losses #Diarrhea Plan: ?Follow-up C. difficile ?Replete as needed ?Treat as above with antiemetics ?As above #Type 2 diabetes mellitus A1c 6.8 -on insulin sliding scale #Hypothyroidism Patient noted to have TSH of 75 however T4 at 0.76 ? The patient was started on Synthroid 175 mcg p.o. but unable to tolerate p.o. medication, will switch to IV levothyroxine. #Health Maintenance Disposition: Medsurg DVT prophylaxis: Heparin GI prophylaxis: Simethicone Diet: Special diet request CODE STATUS: Full Patient seen and care discussed with my senior resident, Dr. Davis, and my attending physician, Dr. Freddie Solorio, PGY-1 Attending Provider Attestation/Addendum I reviewed labs, imaging, EKG, home medications and prior available records. Face to face evaluation was performed by me. I have personally examined the patient and discussed assessment and plan with the IM team. I reviewed the resident note and agree with the plan with exceptions as below. Epidural abscess Intractable nausea and vomiting Hypokalemia Hypomagnesemia And new onset diarrhea Continue Rocephin and vancomycin via PICC line Symptoms are improving. Etiology is unclear but may be related to epidural abscess versus autoimmune disease. Started on diet and she tolerated the diet gradually. Removed restriction to vegetarian food. Small meals. Follow-up C. difficile test Replete electrolytes and follow-up magnesium and potassium levels
[2024-06-03 16:00] VITALS: BP 131/84; PULSE 95; PULSE 98; RESP 19; TEMP 36.4; O2SAT 98
[2024-06-03 17:49] LABS: Clostridium Difficile PCR Negative (Negative)
[2024-06-03 20:00] VITALS: BP 158/91; PULSE 105; RESP 18; TEMP 36.4; O2SAT 100
[2024-06-03 20:53] LABS: Albumin, Serum 3.4 gm/dL (3.5-5.0); Anion Gap 10 (7-16); BUN/Creatinine Ratio 6 Ratio (12-20); Blood Urea Nitrogen < 5 mg/dL (9-23); Calcium 8.9 mg/dL (8.3-10.6); Calcium (Corrected) 9.4 mg/dL (8.5-10.1); Carbon Dioxide 18.8 mMol/L (20.0-31.0); Chloride 114 mMol/L (98-107); Creatinine (Component) 0.8 mg/dL (0.6-1.3); Estimated Creatinine Clearance 81.1 mL/min (>60); Glucose 106 mg/dL (74-106); Osmolality,Calculated 282 (275-295); Phosphorous 4.5 mg/dL (2.4-5.1); Potassium 3.5 mMol/L (3.4-5.1); Sodium 143 mMol/L (136-145); eGFR > 60 See Note
[2024-06-03] MEDS: AMITRIPTYLINE HCL 25 MG TABLET PO (20:56)
--- NOTE | 2024-06-03 23:22 | PD.NEUROPROG ---
Documentation for date of: 06/03/24 Subjective Subjective Interval history: Ms. Palumbo was seen in [facility] today, doing little better, she is tolerating oral diet well, able to walk with a walker. complaints of frequent loose stools and was wondering if it was related to potassium, c. diff resulted negative. Exam - Neurology Vital Signs Temp Pulse Resp BP Pulse Ox O2 Del Method 97.6 F 105 H 18 158/91 H 100 Room Air 06/03/24 20:00 06/03/24 20:00 06/03/24 20:00 06/03/24 20:00 06/03/24 20:00 06/03/24 20:00 Narrative Exam GENERAL APPEARANCE: Well hydrated, well-nourished in no acute distress. HEENT: Normocephalic, atraumatic, extraocular movements intact. Pupils: Equal reacting to light CARDIOVASULAR: Heart: S1, S2 heard, regular without S3-S4 or murmur no rubs or gallops. LUNGS/CHEST: Clear to auscultation bilaterally. No rails, rhonchi, or wheezing. Normal inspection. ABDOMEN: Soft, nontender, with normal bowel sounds. No pulsatile masses. No rebound, rigidity, or guarding. Normal inspection and palpation. EXTREMITIES: Normal inspection and palpation. No edema, clubbing or cyanosis. SKIN: Warm and dry without rashes. Normal inspection. MUSCULOSKELETAL: No cervical, thoracic, lumbar or midline bony tenderness. Normal inspection. NEURO: Alert, awake and oriented x3. Cranial nerves: II through XII grossly intact. Speech and language: Normal with no dysarthria or dysphasia. Motor system: Tone and bulk: Normal: Strength: moves all extremities, No pronator drift noted. Deep tendon reflexes: 2+ bilaterally symmetrical. Plantar reflex: Downgoing bilaterally. Sensory system: subjective paresthesias in the right LE noted. Coordination: Intact to [id number] test bilaterally. No ataxia, no dysmetria, or dysdiadochokinesia noted. No intention tremors noted. Gait: walks with a walker; No signs of meningeal irritation noted. PSYCHIATRIC: Normal mood and affect. Objective Labs 06/04/24 05:35 06/04/24 05:35 Labs: Laboratory Results - last 24 hr 06/02/24 06/03/24 06/03/24 19:26 05:02 20:14 WBC 6.0 RBC 2.60 L Hgb 8.0 L Hct 24.7 L MCV 95 MCH 30.8 MCHC 32.4 RDW Std Deviation 72.8 H Plt Count 315 Neut % (Auto) 53 Lymph % (Auto) 24 [place] % (Auto) 14 H Eos % (Auto) 8 Baso % (Auto) 1 Neut # (Auto) 3.2 Lymph # (Auto) 1.4 [place] # (Auto) 0.9 H Eos # (Auto) 0.5 Baso # (Auto) 0.0 Immature Gran # (Auto) 0.03 H Absolute Nucleated RBC 0.00 Immature Gran % 1 H Nucleated RBC % 0 Sodium 143 143 Potassium 3.0 L 3.5 D Chloride 113 H 114 H Carbon Dioxide 18.6 L 18.8 L Anion Gap 11 10 BUN < 5 L < 5 L Creatinine 0.9 0.8 Estim Creat Clear Calc 72.1 81.1 eGFR > 60 > 60 BUN/Creatinine Ratio 6 L 6 L Glucose 97 D 106 Calculated Osmolality 282 282 Calcium 9.2 8.9 Corrected Calcium 9.5 9.4 Phosphorus 4.9 4.5 Magnesium 1.7 Total Bilirubin 0.4 AST 20 ALT 13 Alkaline Phosphatase 47 Total Protein 6.0 Albumin 3.6 3.4 L Globulin 2.4 Albumin/Globulin Ratio 1.5 Stl C. diff Tox B Gene Negative ABG Interpretation ABG results: 05/14/24 05/15/24 17:25 16:48 VBG pH 7.49 7.39 VBG pCO2 21 L 28 L VBG pO2 35 43 VBG Base Excess -5 L -7 L Assessment & Plan Assessment and plan (1) Lumbar disc disease: Status: Acute Assessment and plan: with discitis. Continue with IV antibiotics. improving. if persistent, will do EMG AND NCS of both LE as an outpatient. (2) Intractable nausea and vomiting: Status: Resolved Assessment and plan: Diarrhea continues, neg for C. difficile as she is on antibiotics [employer] or [employer]. (3) Diabetes mellitus type 2, insulin dependent: Status: Acute Assessment and plan: Continue to check fingerstick glucose and follow sliding scale insulin per protocol
[2024-06-04] VITALS (9 sets, daily range): BP systolic 122–135; BP diastolic 71–86; PULSE 81–103; RESP 16–18; TEMP 36.2–36.4; O2SAT 97–99; BMI 32.1
[2024-06-04] MEDS: METOCLOPRAMIDE INJ 5 MG/ML VIAL 2 ML IVP ×3 (05:39→23:44)
[2024-06-04 06:15] LABS: Basophils # (Auto) 0.1 Thou/mm3 (0.0-0.2); Basophils % (Auto) 1 % (0-2.5); Eosinophils # (Auto) 0.4 Thou/mm3 (0.0-0.5); Eosinophils % (Auto) 8 % (0-10); Hematocrit 27.6 % (36.0-46.0); Hemoglobin 9.1 g/dL (12.0-16.0); Immature Granulocytes % (Auto) 0 % (0-0); Immature Granulocytes Auto 0.02 Thou/mm3 (0.00-0.00); Lymphocytes # (Auto) 1.3 Thou/mm3 (1.0-4.8); Lymphocytes % (Auto) 24 % (10-50); Mean Corpuscular Hemoglobin 30.7 pg (25.0-35.0); Mean Corpuscular Volume 93 fL (80-100); Monocytes # (Auto) 0.8 Thou/mm3 (0.0-0.8); Monocytes % (Auto) 15 % (0-12); Neutrophils # (Auto) 2.7 Thou/mm3 (1.8-7.7); Neutrophils % (Auto) 52 % (37-80); Nucleated Red Blood Cell % 0 /100 WBC (0); Platelet Count 305 Thou/mm3 (140-440); RDW Standard Deviation 70.3 fL (36.4-46.3); Red Blood Count 2.96 Miln/mm3 (4.00-5.20); White Blood Count 5.2 Thou/mm3 (3.6-11.0)
[2024-06-04 06:35] LABS: Alanine Aminotransferase 12 U/L (10-49); Albumin, Serum 3.5 gm/dL (3.5-5.0); Albumin/Globulin Ratio 1.5 (1.2-2.2); Alkaline Phosphatase 45 U/L (46-116); Anion Gap 10 (7-16); Aspartate Amino Transferase 22 U/L (0-34); BUN/Creatinine Ratio 6 Ratio (12-20); Bilirubin,Total 0.4 mg/dL (0.3-1.2); Blood Urea Nitrogen < 5 mg/dL (9-23); Calcium (Corrected) 9.4 mg/dL (8.5-10.1); Carbon Dioxide 19.1 mMol/L (20.0-31.0); Chloride 114 mMol/L (98-107); Creatinine (Component) 0.8 mg/dL (0.6-1.3); Estimated Creatinine Clearance 81.1 mL/min (>60); Globulin 2.4 gm/dL (2.3-3.5); Glucose 97 mg/dL (74-106); Magnesium 2.2 mg/dL (1.6-2.6); Osmolality,Calculated 282 (275-295); Phosphorous 4.9 mg/dL (2.4-5.1); Potassium 3.1 mMol/L (3.4-5.1); Sodium 143 mMol/L (136-145); Total Protein 5.9 gm/dL (5.7-8.2); eGFR > 60 See Note
--- NOTE | 2024-06-04 08:02 | ESPR_ITS ---
Documentation for date of: 06/04/24 Subjective Subjective Interval history: Ms Palumbo is a 59-year-old female with a past medical history of hypertension, diabetes, hypothyroidism, dermoid cyst and hyperlipidemia who was admitted on 05/14/2024 for intractable nausea, vomiting and diarrhea. Patient was recently admitted at [facility] for evaluation of starvation ketosis, was taken to the ICU for further evaluation, did not require insulin drip and was transferred back to floors for evaluation of tractable nausea and vomiting. Patient was unable to tolerate gastric emptying study in the past, and EGD findings showed reflux esophagitis and was discharged on Reglan and erythromycin p.o. When coming to the ED this time she arrived afebrile and hypertensive. She was worked up and Labs showed WBC 6.8 Hgb 14.1 PLT 284 NA 130 5K2.5 CL 99 bicarb 18.2 anion gap 18 BUN 5 CR 0.9 glucose 104 calcium 10.2 lipase 71 beta hydroxybutyrate 4.6 UA showed 1+ protein 3+ ketones 12 WBC, urine hCG positive. VBG showed a pCO2 of 21 with a base excess of -5. EKG showed sinus rhythm with QTc of 468. The patient received 2.7 L of IV fluids, Zofran and potassium and was admitted for management of intractable nausea and vomiting/starvation ketosis. While on the floors patient was having persistent hypokalemia, despite having not vomited. With the progression of hospital course patient had multiple episodes of vomiting which worsened her hypokalemia, patient continues to receive potassium replacement. A number of agents including promethazine, Reglan, Zofran, erythromycin, Ativan and capsaicin were given to patient to manage her symptoms. Patient has on and off episodes of nausea and vomiting which she said can happen at any time, awakens her from sleep, reports occurring with certain fluids as well. Patient unable to tolerate p.o. medication. GI and neurology were consulted for further evaluation of etiology of persistent nausea, vomiting and diarrhea and newly seen horizontal bilateral nystagmus and blurry vision. Specialist recommendations included symptomatic control and further imaging studies. MRI of C-spine, T-spine and brain were done to look for any ideology such as mass effect, multiple sclerosis or any other pathology that could be affecting brain producing stimulation of vomiting center, but those images were unremarkable. Another cause that was pursued was possible relation of dermoid cyst relation to nausea and vomiting. Oncology was consulted who had recommended patient to get an RECREATIONAL AIDE consult. RECREATIONAL AIDE was consulted, recommended tumor markers and MRI of abdomen pelvis. Abdomen pelvis showed a 5.6 x 6.0 fat-containing mass consistent with dermoid tumor which did not require any surgical intervention at the time. Serum tumor markers were obtained including beta-hCG, AFP, CEA, CA125 which were all unremarkable although patient had beta-hCG of 10 in the urine. Patient did report back pain throughout the course of admission, and lumbar MRI was eventually done which showed focal lumbar disc bulges each 5 mm at the L4-L5 and L2-L3 levels, findings most consistent with osteomyelitis discitis L2-L3, L3-L4, and epidural abscess posterior to L1-L5 as above. Case was discussed with radiologist which did suspect epidural abscess, transfer for neurosurgical consult was unsuccessful as patient was asymptomatic. Patient is currently on IV vancomycin, acetazolamide 250 IV twice daily, citric acid/sodium citrate 30 mL p.o. twice daily, D5W 120 cc/h, sliding scale insulin, levothyroxine 175 mcg p.o. ACBR, lidocaine patch as needed, promethazine IV every 6 hours, simethicone as needed. Nephrology consulted for recurrent hypokalemia and metabolic acidosis. Home medications levothyroxine 100 mcg, lovastatin 40 mg, hydrochlorothiazide 25 mg, Metformin 500 mg twice daily, Jardiance 10 mg 06/02/2024: Patient seen at bedside, patient reports home vomiting and nausea improved, is able to drink Ensure protein drink. Reported 7 episodes of diarrhea. Reports feeling better compared to the condition on the admission. Labs show sodium 148, potassium 2.9, bicarb 19.3, improving, BUN less than 5, creatinine 0.9, GFR more than 60. No need to replete bicarb today. Potassium was replaced by primary team. Will continue to monitor daily CBC and CMP. 06/03/2024 patient resting comfortably her nausea vomiting markedly improved. She is able to tolerate solid diet today.Potassium and bicarbonate are slightly better. Creatinine is normal. Patient able to tolerate Megace. 06/04/2024 patient currently seen in medical floor. Able to tolerate solids. Nausea, vomiting much better. Still having right upper quadrant abdominal pain. Noted HIDA scan pending. Potassium bicarbonate seems to be better. Able to tolerate Megace. Long conversation with the patient-requesting her antidepressant. Patient currently on amitriptyline. Review of Systems Review of Systems Narrative Review of Systems: ROS: -CONSTITUTIONAL: Denies fever and chills. Positive for weight loss -HEENT: Denies changes in vision and hearing. -RESPIRATORY: Denies SOB and cough. -CV: Denies palpitations and Chest Pain. -GI: Denies constipation and diarrhea. Nausea vomiting markedly improved. -: Denies dysuria and urinary frequency. -MSK: Denies myalgia and joint pain. -SKIN: Denies rash and pruritus. -NEUROLOGICAL: Denies syncope. -PSYCHIATRIC: Admits depression Exam Vital Signs Temp Pulse Resp BP Pulse Ox O2 Del Method 36.2 C 96 18 135/80 H 98 Room Air 06/04/24 07:53 06/04/24 07:53 06/04/24 07:53 06/04/24 07:53 06/04/24 07:53 06/04/24 07:53 Narrative Exam Physical Exam General: Awake and in no acute distress. HEENT: Normocephalic, atraumatic, mucous membranes dry. Heart: Regular rate and rhythm, no murmurs. Lungs: Clear to auscultation with no wheezing or crackles. Abdomen: Nontender non-distended no guarding or rebound tenderness. Neurologic: Alert and oriented x3, no gross neurological deficit, and patient able to move all 4 extremities. Extremities: No edema. Skin: No rash or ecchymoses. Objective Labs 06/05/24 05:05 06/05/24 07:30 Labs: Laboratory Results - last 24 hr 06/02/24 06/03/24 06/04/24 19:26 20:14 05:35 WBC 5.2 RBC 2.96 L Hgb 9.1 L Hct 27.6 L MCV 93 MCH 30.7 MCHC 33.0 RDW Std Deviation 70.3 H Plt Count 305 Neut % (Auto) 52 Lymph % (Auto) 24 [place] % (Auto) 15 H Eos % (Auto) 8 Baso % (Auto) 1 Neut # (Auto) 2.7 Lymph # (Auto) 1.3 [place] # (Auto) 0.8 Eos # (Auto) 0.4 Baso # (Auto) 0.1 Immature Gran # (Auto) 0.02 H Absolute Nucleated RBC 0.00 Immature Gran % 0 Nucleated RBC % 0 Sodium 143 143 Potassium 3.5 D 3.1 L Chloride 114 H 114 H Carbon Dioxide 18.8 L 19.1 L Anion Gap 10 10 BUN < 5 L < 5 L Creatinine 0.8 0.8 Estim Creat Clear Calc 81.1 81.1 eGFR > 60 > 60 BUN/Creatinine Ratio 6 L 6 L Glucose 106 97 Calculated Osmolality 282 282 Calcium 8.9 9.0 Corrected Calcium 9.4 9.4 Phosphorus 4.5 4.9 Magnesium 2.2 Total Bilirubin 0.4 AST 22 ALT 12 Alkaline Phosphatase 45 L Total Protein 5.9 Albumin 3.4 L 3.5 Globulin 2.4 Albumin/Globulin Ratio 1.5 Stl C. diff Tox B Gene Negative ABG Interpretation ABG results: 05/14/24 05/15/24 17:25 16:48 VBG pH 7.49 7.39 VBG pCO2 21 L 28 L VBG pO2 35 43 VBG Base Excess -5 L -7 L Assessment & Plan Assessment and plan (1) Lumbar disc disease: Status: Acute (2) Intractable nausea and vomiting: Status: Resolved (3) Diabetes mellitus type 2, insulin dependent: Status: Acute Additional Assessment & Plan Additional Plan: Ms Palumbo is a 59-year-old female with a past medical history of hypertension, diabetes, hypothyroidism, dermoid cyst and hyperlipidemia who was admitted on 05/14/2024 for intractable nausea, vomiting and diarrhea. Nephrology consulted for recurrent hypokalemia and metabolic acidosis. # Hypokalemia # Metabolic acidosis Marked improvement in nausea, vomiting. So far all the studies are negative. Suspect somatization from depression- much better now. Continue with Danis cleaning. c/o RUQ abd pain-HIDA scan ordered # Hypernatremia # Hypercalcemia # Dehydration Improved # Hypothyroidism Currently on IV levothyroxine. #Epidural abscess #Osteomyelitis/discitis Management as per primary team Patient with PICC line.
[2024-06-04] MEDS: MEGESTROL ACET SUSP 400 MG/10 ML UDC PO ×2 (09:20→20:08)
[2024-06-04] MEDS: LEVOTHYROXINE INJ 100 mCg VIAL 50 MCG IV (09:20)
[2024-06-04] MEDS: cefTRIAXone 2 GM in SODIUM CHLORIDE 0.9% (P) 50 ML IV (09:21)
[2024-06-04] MEDS: SODIUM CHLORIDE 0.9% INJ 10 ML VIAL 2.5 ML IV (09:21)
[2024-06-04] MEDS: MULTIVITAMINS TABLET 1 TAB PO (09:22)
[2024-06-04] MEDS: HYDROcodone/APAP 5/325 TABLET 1 TAB PO ×2 (09:35→20:37)
--- NOTE | 2024-06-04 10:14 | PC.SS ---
Follow up note: Pt is requiring IV Rocephin 2grm 1 X day until Jul 09, 2024 and IV Vanko 1 X day until Jul 09, 2024. SS has informed Karina at [facility] who explained she has submitted for insurance authorization again. SS has informed Arlene pt is still not ready for dc. Pt will have Hida Scan today.
[2024-06-04] MEDS: POTASSIUM CHL 20 mEq IVPB 20 MEQ/100 ML BAG 50 MEQ IV ×2 (10:27→15:22)
[2024-06-04] MEDS: VANCOMYCIN/D5W 1,250 MG IVPB 250 ML 120 MG IV (10:28)
--- NOTE | 2024-06-04 11:06 | PC.NURSE ---
Dr. Boland made aware patient's dual lumen PICC line is not flushing, MD will speak to attending for further orders.
--- NOTE | 2024-06-04 11:09 | PC.SS ---
Addendum entered by Aminah Rodrigues 06/04/24 11:25: SS has spoken to Catherine from [facility] who is requesting inquiry be resent to review for the 2 IV antibiotics. They are able to accommodate 2 IV antibiotics if they can be administered 4 hours apart only. Original Note: SS received call from Karina at [facility] and Oneida at [facility] who states they are unable to accept pt if she is also requiring IV Vanko 1 day. SS has informed Resident Physicians from [facility].
--- NOTE | 2024-06-04 13:56 | ESPR_ITS ---
<Statement entered by Иван Boland MD - 06/04/24 17:05> Patient was seen today at bedside. Patient reported that she has not vomited for the past 4 days. She reported that her level of energy has been improving and she mentioned that she believes that her Megesterol was the reason of her improvement. We noticed that her heart rate was in the high 90s for that reason we started the patient on IV fluids at the patient seems to be dehydrated. Patient underwent HIDA scan today and it which showed gallbladder ejection fraction of 23%. Will update the GI specialist Dr. Reardon for further recommendation as we believe that the patient may have biliary dyskinesia. Patient was noticed to have potassium level of 3.1, for that reason we repleted the patient with potassium IV through central line Patient was noticed to have C. difficile negative and her stool study she reported that she still have some soft stool. Regarding her epidural abscess we will reach out to the infectious disease specialist Dr Mcdaniels for possible change of the IV antibiotics vancomycin to any other medication to cover MRSA except doxycycline as we have not ruled out completely pseudotumor cerebri. The reason for this is so the patient can have nursing home facility that can accept her as most of the nursing home facility they do not accept patients who have to IV antibiotics. - Patient's plan and care discussed with my attending, Dr. Freddie Boland MD Internal Medicine PGY-2 Documentation for date of: 06/04/24 Subjective Subjective Interval history: Patient examined at bedside today. No acute overnight events. Says she is doing better, feels stronger, and has been eating more and has been having more of an appetite. Thinks that the Megace or the amitriptyline is helping her improve. Says she has not vomited in 4 days, nausea has improved. Also says that her bowel movements are not as watery. Exam Vital Signs Temp Pulse Resp BP Pulse Ox O2 Del Method 97.1 F 96 18 125/76 97 Room Air 06/04/24 12:00 06/04/24 12:00 06/04/24 12:00 06/04/24 12:00 06/04/24 12:00 06/04/24 12:00 Narrative Exam General: AAOx3, NAD, sitting up on bed when examined HEENT: Dry mucous membranes, conjunctiva clear, EOMI, PERRLA, Cardiovascular: S1, S2, radial pulses +2 bilat, RRR Pulmonary: CTAB bilat no cough, no wheezing GI: tenderness to light palpitation in both RUQ and LUQ, + rebound tenderness, no guarding, or distension, bowel sounds are present Extremities: No presence of trace or pitting edema in lower extremities bilaterally, dorsalis pedis pulses +2 bilaterally, L upper hand in site of IV erythematous and TTP Neuro: AAOx3, resting tremor in UE bilat Psych: Good judgement, thought and behavior. Cooperative Objective Labs 06/05/24 05:05 06/04/24 05:35 Labs: Laboratory Results - last 24 hr 06/02/24 06/03/24 06/04/24 19:26 20:14 05:35 WBC 5.2 RBC 2.96 L Hgb 9.1 L Hct 27.6 L MCV 93 MCH 30.7 MCHC 33.0 RDW Std Deviation 70.3 H Plt Count 305 Neut % (Auto) 52 Lymph % (Auto) 24 [place] % (Auto) 15 H Eos % (Auto) 8 Baso % (Auto) 1 Neut # (Auto) 2.7 Lymph # (Auto) 1.3 [place] # (Auto) 0.8 Eos # (Auto) 0.4 Baso # (Auto) 0.1 Immature Gran # (Auto) 0.02 H Absolute Nucleated RBC 0.00 Immature Gran % 0 Nucleated RBC % 0 Sodium 143 143 Potassium 3.5 D 3.1 L Chloride 114 H 114 H Carbon Dioxide 18.8 L 19.1 L Anion Gap 10 10 BUN < 5 L < 5 L Creatinine 0.8 0.8 Estim Creat Clear Calc 81.1 81.1 eGFR > 60 > 60 BUN/Creatinine Ratio 6 L 6 L Glucose 106 97 Calculated Osmolality 282 282 Calcium 8.9 9.0 Corrected Calcium 9.4 9.4 Phosphorus 4.5 4.9 Magnesium 2.2 Total Bilirubin 0.4 AST 22 ALT 12 Alkaline Phosphatase 45 L Total Protein 5.9 Albumin 3.4 L 3.5 Globulin 2.4 Albumin/Globulin Ratio 1.5 Stl C. diff Tox B Gene Negative ABG Interpretation ABG results: 05/14/24 05/15/24 17:25 16:48 VBG pH 7.49 7.39 VBG pCO2 21 L 28 L VBG pO2 35 43 VBG Base Excess -5 L -7 L Quality Measures Quality Measures VTE prophylaxis (Heparin ) Assessment & Plan Assessment Current Active Medications: Generic Name Dose Route Start Last Admin Trade Name Lauro PRN Reason Stop Dose Admin Acetaminophen 650 mg 05/15/24 18:27 05/31/24 14:37 Acetaminophen 325 Mg Tablet PO 06/14/24 18:26 650 mg Q4HR PRN Administration Fever >101 or pain 1-3 Hydrocodone Bitart/Acetaminophen 1 tab 05/31/24 16:33 06/04/24 09:35 Hydrocodone/Apap 5/325 Tablet PO 06/05/24 16:32 1 tab Q6HR PRN Administration Pain 4-7 or breakthrough pain Amitriptyline HCl 25 mg 06/01/24 21:00 06/03/24 20:56 Amitriptyline Hcl 25 Mg Tablet PO 07/01/24 20:59 25 mg HS MEGAN Administration Dextrose 25 ml 05/15/24 05:02 Dextrose 50%-Water Inj 50 Ml Syringe IV 06/14/24 05:01 Q15MIN PRN BG 50-70 responsive npo pt Dextrose 50 ml 05/15/24 05:02 Dextrose 50%-Water Inj 50 Ml Syringe IV 06/14/24 05:01 Q15MIN PRN BG <50 OR BG <70 & pt unresponsive Glucagon 1 mg 05/15/24 05:02 Glucagon Inj 1 Mg Vial IM Q15MIN PRN BG <70, and no IV access Ceftriaxone Sodium 2 gm/ 50 mls @ 100 mls/hr 05/28/24 21:00 06/04/24 09:21 Sodium Chloride IV 06/04/24 20:59 100 mls/hr Q12HR MEGAN Administration Vancomycin HCl/Dextrose 250 mls @ 120 mls/hr 05/31/24 10:00 06/04/24 10:28 Vancomycin/D5w 1,250 Mg Ivpb IV 06/07/24 09:59 120 mls/hr QDAY@1000 MEGAN Administration Protocol Potassium Chloride 20 meq in 100 mls @ 50 mls/hr 06/04/24 15:00 Kcl Ivpb IV 06/04/24 18:59 Q2H MEGAN Dextrose/Sodium Chloride 500 mls @ 125 mls/hr 06/04/24 10:30 D5-1/2ns IV 06/05/24 10:29 .Q4H MEGAN Insulin Human Regular 0 unit 06/04/24 06:00 06/04/24 12:38 Insulin Hum Regular 1 Unit/0.01 Ml (Per Unit) SC 07/04/24 05:59 Not Given Q6HR MGEAN Protocol Levothyroxine Sodium 50 mcg 05/31/24 09:00 06/04/24 09:20 Levothyroxine Inj 100 Mcg Vial IV 06/30/24 08:59 50 mcg QDAY MEGAN Administration Lidocaine 1 patch 05/21/24 09:21 05/31/24 21:07 Lidocaine 5% 1 Patch TOP 06/20/24 09:20 1 patch UD PRN Administration PAIN Protocol Megestrol Acetate 400 mg 05/31/24 09:15 06/04/24 09:20 Megestrol Acet Susp 400 Mg/10 Ml Udc PO 06/30/24 09:14 400 mg BID MEGAN Administration Metoclopramide HCl 5 mg 05/31/24 18:00 06/04/24 13:32 Metoclopramide Inj 5 Mg/Ml Vial 2 Ml IVP 06/30/24 17:59 Not Given Q6HR MEGAN Protocol Multivitamins 1 tab 06/03/24 11:30 06/04/24 09:22 Multivitamins Tablet PO 07/03/24 11:29 1 tab QDAY MEGAN Administration Ondansetron HCl 4 mg 05/19/24 09:48 05/31/24 23:50 Ondansetron Inj 2 Mg/Ml Inj 2 Ml IV 06/18/24 09:47 4 mg Q6HR PRN Administration NAUSEA OR VOMITING Protocol Pharmacy Consult 1 each 05/22/24 09:00 Vancomycin Pharmacy To Dose 1 Each Each IV 06/21/24 08:59 QDAY PRN CONSULT Promethazine HCl 25 mg 05/31/24 13:15 06/04/24 13:32 Promethazine Hcl 25 Mg Tablet PO 06/30/24 13:14 Not Given Q6HR MEGAN Simethicone 80 mg 05/26/24 11:42 Simethicone 80 Mg Chew PO 06/25/24 11:41 QID PRN GAS Sodium Chloride 2.5 ml 06/04/24 09:00 06/04/24 09:21 Sodium Chloride 0.9% Inj 10 Ml Vial IV 07/04/24 08:59 2.5 ml DAILY MEGAN Administration Plan 59-year-old female with a past medical history of hypertension, diabetes, hypothyroidism and hyperlipidemia who presented to the ED on 05/14/2024 with abdominal pain, nausea and vomiting that has persisted over the last 2 months. The patient has been admitted for management of intractable nausea and vomiting, starvation ketosis. Patient on imaging was found to have spinal epidural abscess with multiple attempts to transfer the patient to a [facility] care various institutions infiltrative patient and recommend conservative management. #Intractable nausea and vomiting #? atypical pseudotumor cerebri #? Cyclic vomiting syndrome Patient with diplopia/blurry vision and headache raising suspicion for pseudotumor cerebri subsequently started on acetazolamide with improvement Lumbar puncture unable to be done due to spinal epidural abscess Patient currently on PPN and clear liquid diet Spoke to neurology Dr Hernandez, states this may be atypical visitation of the arrhythmia , recommends to continue Diamox see patient improves, we cannot do LP at this time because of epidural abscess. Will continue with Diamox to see if patient's symptoms improve, if improved, patient likely has pseudotumor cerebri Turned off TPN, patient is still vomiting At this point we will retry for gastric emptying study to see if there is a motility issue Spoke with Dr. Reardon, wants to proceed with gastric emptying study and go from there for further imaging/workup for possible transfer And concerns with pseudotumor cerebri, cannot perform LP until epidural resolves and patient will need 6 weeks of antibiotics Gastric emptying study shows normal motility Spoke with GI, recommends new antiemetic regimen before considering other workup Nephrology thinks that patient may have nausea and vomiting related to depression Pt is able to tolerate water, clear ensure and apple juice, but nothing else, vomits from any food especially eggs Patient tolerates apple juice, cold water, Ensure clear apple flavor, fruits and veggies including apples, carrots, grapes, celery, and jello At this point patient needs transferred, we will see what GI thinks from the standpoint. Patient experiencing more tenderness in right upper quadrant and left upper quadrant, will workup further w/ HIDA Will need to follow-up with [facility], patient is improving with oral intake and nausea Plan: ?Special diet request -Zofran as needed -Reglan 5 mg IV every 6 hours ?Promethazine 25 mg p.o. every 6 hours -Encourage p.o. intake as tolerated, Megace added by nephrology ?Continue amitriptyline, and megace -Neurology on case appreciate recommendations -GI on the case appreciate recommendations ?Follow-up HIDA scan w/Pharm #Epidural abscess #Osteomyelitis/discitis Found on lumbar MRI Discussed case with multiple institutions rejected the case recommended conservative management Will continue trying to send the patient for neurosurgical evaluation Currently, patient denies any lower extremity weakness, saddle anesthesia and denies any fecal or urinary incontinence ID recommends for pt to have drainage of abscess at some point ID recommends 2 g daily Rocephin and doxycycline, however patient cannot take doxycycline as she already has GI upset Will eventually adjust rocephin 2g daily once pt is d/c to SNF Plan: -On IV vancomycin, and Rocephin 2g IV BID -ID consulted, appreciate recommendations -Continue to pursue transfer #Metabolic acidosis Likely secondary to acetazolamide Current bicarb ~19 Plan: ?Nephrology on consult, appreciate recs #Electrolyte abnormalities #Hypokalemia secondary to #GI losses #Diarrhea C diff negative Plan: ?Replete as needed ?Treat as above with antiemetics ?As above #Type 2 diabetes mellitus A1c 6.8 -on insulin sliding scale #Hypothyroidism Patient noted to have TSH of 75 however T4 at 0.76 ? The patient was started on Synthroid 175 mcg p.o. but unable to tolerate p.o. medication, will switch to IV levothyroxine. #Health Maintenance Disposition: Medsurg DVT prophylaxis: Heparin GI prophylaxis: Simethicone Diet: Special diet request CODE STATUS: Full Patient seen and care discussed with my senior resident, Dr. Boland, and my attending physician, Dr. Freddie Solorio, PGY-1 Attending Provider Attestation/Addendum I have examined the patient, reviewed labs and imaging findings, discussed the case with the resident(s), and reviewed entered orders. I agree with the plan of care as outlined in this note, with these additional summaries/recommendations: Patient seen at bedside. No acute overnight events. Patient's intractable nausea and vomiting has significantly improved over the last 72 hours with no further vomiting but still intermittent nausea present at times. Oral intake continues to be poor although significantly improved with diet changes and current medicines. Patient continues to have intractable hypokalemia and will remain hospitalized. GI following. Previous gastric emptying study within normal limits. Patient does endorse some intermittent right upper quadrant pain and HIDA scan was obtained again which revealed abnormal gallbladder ejection fraction 23% with normal greater than 35%. Appreciate gastroenterology recommendations on if cholecystectomy would be beneficial in the setting. Etiology for patient's intractable nausea/vomiting still unknown and may be secondary to somatization versus hypothyroidism versus functional disorder versus psychiatric component versus gastroparesis despite normal emptying study versus abnormal gallbladder ejection fraction. Continue special diet request for small frequent meals with fruits, carrots, celery, ensure and grapes. Continue amitriptyline for possible depression and nausea and appears to have a positive response. Continue promethazine and Reglan as tolerated. We will continue to give electrolyte replacement for intractable hypokalemia. Continue IV Rocephin and vancomycin for epidural abscess plus osteomyelitis/discitis. Arranging outpatient antibiotics with case management. Continue basal and bolus insulin for diabetes mellitus type 2. Repeat hematology and chemistry panel in AM. Dr. Frazier
--- NOTE | 2024-06-04 14:11 | PD.IMPROG ---
Documentation for date of: 06/04/24 Subjective Subjective Interval history: Tolerating food quite well at the moment Continue promethazine p.o. and Reglan IV Prior to discharge I would like to change Reglan to p.o. 5 mg 30 minutes before each meal and at bedtime Exam Vital Signs Temp Pulse Resp BP Pulse Ox O2 Del Method 97.1 F 96 18 125/76 97 Room Air 06/04/24 12:00 06/04/24 12:00 06/04/24 12:00 06/04/24 12:00 06/04/24 12:00 06/04/24 12:00 Objective Labs 06/04/24 05:35 06/04/24 05:35 Labs: Laboratory Results - last 24 hr 06/02/24 06/03/24 06/04/24 19:26 20:14 05:35 WBC 5.2 RBC 2.96 L Hgb 9.1 L Hct 27.6 L MCV 93 MCH 30.7 MCHC 33.0 RDW Std Deviation 70.3 H Plt Count 305 Neut % (Auto) 52 Lymph % (Auto) 24 [place] % (Auto) 15 H Eos % (Auto) 8 Baso % (Auto) 1 Neut # (Auto) 2.7 Lymph # (Auto) 1.3 [place] # (Auto) 0.8 Eos # (Auto) 0.4 Baso # (Auto) 0.1 Immature Gran # (Auto) 0.02 H Absolute Nucleated RBC 0.00 Immature Gran % 0 Nucleated RBC % 0 Sodium 143 143 Potassium 3.5 D 3.1 L Chloride 114 H 114 H Carbon Dioxide 18.8 L 19.1 L Anion Gap 10 10 BUN < 5 L < 5 L Creatinine 0.8 0.8 Estim Creat Clear Calc 81.1 81.1 eGFR > 60 > 60 BUN/Creatinine Ratio 6 L 6 L Glucose 106 97 Calculated Osmolality 282 282 Calcium 8.9 9.0 Corrected Calcium 9.4 9.4 Phosphorus 4.5 4.9 Magnesium 2.2 Total Bilirubin 0.4 AST 22 ALT 12 Alkaline Phosphatase 45 L Total Protein 5.9 Albumin 3.4 L 3.5 Globulin 2.4 Albumin/Globulin Ratio 1.5 Stl C. diff Tox B Gene Negative Impressions Impression: # Nausea vomiting improving # Some diarrhea C. difficile negative Continue current management ABG Interpretation ABG results: 05/14/24 05/15/24 17:25 16:48 VBG pH 7.49 7.39 VBG pCO2 21 L 28 L VBG pO2 35 43 VBG Base Excess -5 L -7 L Assessment & Plan A&P Narrative mild anemia presumptive gastroparesis with controlled dm dermoid tumor hypothyroid htn hld possible epidural abscess with neg cx on empiric vanco/zosyn ideally, this is drained or pt is referred for such so that if the referral is denied, please document any rationale for no intervention so we all can know why that is the case ok to change zosyn to rocephin and vanco to po doxy and see if other meds can be changed to po too. if empiric rx is to be the goal, then use agents that are supported by micro or are easy to use. she likely needs dermoid addressed at some point as well. will not see again unless requested as inpt current abx are more toxic and require more daily doses then alternative empiric rx. favor rocephin 2 gm iv daily and po doxy 100 bid thru 07/09 with weekly cbc, renal panel, esr and line removal at end of rx if process remains, please re visit drainage at end of iv run and extend abx will see prn. f/u with dr Reardon on the tpn. I generally do not provide that rx. Time Spent With Patient Time: Total time spent is greater than 50% in coordination of care (as documented) at patient's floor/unit and/or counseling patient:
[2024-06-04] MEDS: DEXTROSE 5%-0.45% NS 1,000 ML 125 ML IV ×2 (15:50→23:44)
[2024-06-04] MEDS: PROMETHAZINE HCL 25 MG TABLET PO ×2 (17:55→23:44)
[2024-06-04] MEDS: AMITRIPTYLINE HCL 25 MG TABLET PO (20:09)
[2024-06-04] MEDS: WATER IV (20:12)
[2024-06-04] MEDS: DEXTROSE 5% IV (20:12)
[2024-06-04] MEDS: POTASSIUM ACET IV (20:12)
--- NOTE | 2024-06-04 23:57 | VVPN_ITS ---
Telemedicine visit statement This visit was conducted with the use of interactive audio and video telecommunications system that permits real time communication between the patient and the provider. Patient's verbal consent for virtual visit was obtained on 06/04/24 at 2357. Documentation for date of: 06/04/24 Subjective Subjective Interval history: Patient is in MedSurg. Still with pain in the lower back and right lower extremity. She is tolerating oral diet better, needing to take pain meds every 10-12 hours. Virtual exam Vital Signs Temp Pulse Resp BP Pulse Ox O2 Del Method 97.5 F 100 18 125/86 H 99 Room Air 06/04/24 20:00 06/04/24 20:00 06/04/24 20:00 06/04/24 20:00 06/04/24 20:00 06/04/24 20:00 Objective Labs 06/08/24 05:25 06/08/24 05:25 Labs: Laboratory Results - last 24 hr 06/04/24 05:35 WBC 5.2 RBC 2.96 L Hgb 9.1 L Hct 27.6 L MCV 93 MCH 30.7 MCHC 33.0 RDW Std Deviation 70.3 H Plt Count 305 Neut % (Auto) 52 Lymph % (Auto) 24 [place] % (Auto) 15 H Eos % (Auto) 8 Baso % (Auto) 1 Neut # (Auto) 2.7 Lymph # (Auto) 1.3 [place] # (Auto) 0.8 Eos # (Auto) 0.4 Baso # (Auto) 0.1 Immature Gran # (Auto) 0.02 H Absolute Nucleated RBC 0.00 Immature Gran % 0 Nucleated RBC % 0 Sodium 143 Potassium 3.1 L Chloride 114 H Carbon Dioxide 19.1 L Anion Gap 10 BUN < 5 L Creatinine 0.8 Estim Creat Clear Calc 81.1 eGFR > 60 BUN/Creatinine Ratio 6 L Glucose 97 Calculated Osmolality 282 Calcium 9.0 Corrected Calcium 9.4 Phosphorus 4.9 Magnesium 2.2 Total Bilirubin 0.4 AST 22 ALT 12 Alkaline Phosphatase 45 L Total Protein 5.9 Albumin 3.5 Globulin 2.4 Albumin/Globulin Ratio 1.5 ABG Interpretation ABG results: 05/14/24 05/15/24 17:25 16:48 VBG pH 7.49 7.39 VBG pCO2 21 L 28 L VBG pO2 35 43 VBG Base Excess -5 L -7 L Assessment & Plan Assessment #Epidural abscess #Osteomyelitis/discitis #Intractable nausea and vomiting: resolved. MRI brain did not show any significant white matter changes, not consistent with demyelinating disease. MRI of the C-spine and T-spine: Did not show any evidence of demyelination as seen in neuromyelitis optica spectrum disorder. Abx asper ID specialist
[2024-06-05] VITALS (8 sets, daily range): BP systolic 117–140; BP diastolic 71–89; PULSE 78–110; RESP 17–18; TEMP 36.1–36.8; O2SAT 97–99; BMI 35.6
[2024-06-05 05:42] LABS: Basophils # (Auto) 0.1 Thou/mm3 (0.0-0.2); Basophils % (Auto) 1 % (0-2.5); Eosinophils # (Auto) 0.4 Thou/mm3 (0.0-0.5); Eosinophils % (Auto) 9 % (0-10); Hematocrit 22.1 % (36.0-46.0); Immature Granulocytes % (Auto) 0 % (0-0); Immature Granulocytes Auto 0.02 Thou/mm3 (0.00-0.00); Lymphocytes # (Auto) 1.3 Thou/mm3 (1.0-4.8); Lymphocytes % (Auto) 27 % (10-50); Mean Corpuscular HGB Conc 31.7 g/dl (31.0-37.0); Mean Corpuscular Hemoglobin 30.2 pg (25.0-35.0); Mean Corpuscular Volume 95 fL (80-100); Monocytes # (Auto) 0.7 Thou/mm3 (0.0-0.8); Monocytes % (Auto) 15 % (0-12); Neutrophils # (Auto) 2.3 Thou/mm3 (1.8-7.7); Neutrophils % (Auto) 47 % (37-80); Nucleated Red Blood Cell % 0 /100 WBC (0); Platelet Count 312 Thou/mm3 (140-440); RDW Standard Deviation 71.7 fL (36.4-46.3); Red Blood Count 2.32 Miln/mm3 (4.00-5.20); White Blood Count 4.9 Thou/mm3 (3.6-11.0)
[2024-06-05] MEDS: METOCLOPRAMIDE INJ 5 MG/ML VIAL 2 ML IVP ×2 (05:43→11:32)
[2024-06-05] MEDS: PROMETHAZINE HCL 25 MG TABLET PO ×4 (05:43→23:57)
[2024-06-05 08:46] LABS: Alanine Aminotransferase 12 U/L (10-49); Albumin, Serum 3.5 gm/dL (3.5-5.0); Albumin/Globulin Ratio 1.3 (1.2-2.2); Alkaline Phosphatase 44 U/L (46-116); Anion Gap 10 (7-16); Aspartate Amino Transferase 12 U/L (0-34); BUN/Creatinine Ratio 6 Ratio (12-20); Bilirubin,Total 0.4 mg/dL (0.3-1.2); Blood Urea Nitrogen < 5 mg/dL (9-23); Calcium 8.7 mg/dL (8.3-10.6); Calcium (Corrected) 9.1 mg/dL (8.5-10.1); Carbon Dioxide 18.2 mMol/L (20.0-31.0); Chloride 111 mMol/L (98-107); Creatinine (Component) 0.8 mg/dL (0.6-1.3); Estimated Creatinine Clearance 81.1 mL/min (>60); Globulin 2.6 gm/dL (2.3-3.5); Glucose 105 mg/dL (74-106); Osmolality,Calculated 274 (275-295); Phosphorous 3.4 mg/dL (2.4-5.1); Potassium 3.1 mMol/L (3.4-5.1); Sodium 139 mMol/L (136-145); Total Protein 6.1 gm/dL (5.7-8.2); Vancomycin,Trough 12.6 mcg/mL (5.0-10.0); eGFR > 60 See Note
[2024-06-05] MEDS: MULTIVITAMINS TABLET 1 TAB PO (09:18)
[2024-06-05] MEDS: HYDROcodone/APAP 5/325 TABLET 1 TAB PO ×2 (09:18→20:15)
[2024-06-05] MEDS: MEGESTROL ACET SUSP 400 MG/10 ML UDC PO ×2 (09:18→20:14)
[2024-06-05] MEDS: LEVOTHYROXINE INJ 100 mCg VIAL 50 MCG IV (09:19)
[2024-06-05] MEDS: DEXTROSE 5%-0.45% NS 1,000 ML 125 ML IV (09:19)
[2024-06-05] MEDS: SODIUM CHLORIDE 0.9% INJ 10 ML VIAL 2.5 ML IV (09:22)
--- NOTE | 2024-06-05 09:31 | PD.NEPHPROG ---
Documentation for date of: 06/05/24 Subjective Subjective Interval history: Ms Palumbo is a 59-year-old female with a past medical history of hypertension, diabetes, hypothyroidism, dermoid cyst and hyperlipidemia who was admitted on 05/14/2024 for intractable nausea, vomiting and diarrhea. Patient was recently admitted at [facility] for evaluation of starvation ketosis, was taken to the ICU for further evaluation, did not require insulin drip and was transferred back to floors for evaluation of tractable nausea and vomiting. Patient was unable to tolerate gastric emptying study in the past, and EGD findings showed reflux esophagitis and was discharged on Reglan and erythromycin p.o. When coming to the ED this time she arrived afebrile and hypertensive. She was worked up and Labs showed WBC 6.8 Hgb 14.1 PLT 284 NA 130 5K2.5 CL 99 bicarb 18.2 anion gap 18 BUN 5 CR 0.9 glucose 104 calcium 10.2 lipase 71 beta hydroxybutyrate 4.6 UA showed 1+ protein 3+ ketones 12 WBC, urine hCG positive. VBG showed a pCO2 of 21 with a base excess of -5. EKG showed sinus rhythm with QTc of 468. The patient received 2.7 L of IV fluids, Zofran and potassium and was admitted for management of intractable nausea and vomiting/starvation ketosis. While on the floors patient was having persistent hypokalemia, despite having not vomited. With the progression of hospital course patient had multiple episodes of vomiting which worsened her hypokalemia, patient continues to receive potassium replacement. A number of agents including promethazine, Reglan, Zofran, erythromycin, Ativan and capsaicin were given to patient to manage her symptoms. Patient has on and off episodes of nausea and vomiting which she said can happen at any time, awakens her from sleep, reports occurring with certain fluids as well. Patient unable to tolerate p.o. medication. GI and neurology were consulted for further evaluation of etiology of persistent nausea, vomiting and diarrhea and newly seen horizontal bilateral nystagmus and blurry vision. Specialist recommendations included symptomatic control and further imaging studies. MRI of C-spine, T-spine and brain were done to look for any ideology such as mass effect, multiple sclerosis or any other pathology that could be affecting brain producing stimulation of vomiting center, but those images were unremarkable. Another cause that was pursued was possible relation of dermoid cyst relation to nausea and vomiting. Oncology was consulted who had recommended patient to get an [employer] consult. [employer] was consulted, recommended tumor markers and MRI of abdomen pelvis. Abdomen pelvis showed a 5.6 x 6.0 fat-containing mass consistent with dermoid tumor which did not require any surgical intervention at the time. Serum tumor markers were obtained including beta-hCG, AFP, CEA, CA125 which were all unremarkable although patient had beta-hCG of 10 in the urine. Patient did report back pain throughout the course of admission, and lumbar MRI was eventually done which showed focal lumbar disc bulges each 5 mm at the L4-L5 and L2-L3 levels, findings most consistent with osteomyelitis discitis L2-L3, L3-L4, and epidural abscess posterior to L1-L5 as above. Case was discussed with radiologist which did suspect epidural abscess, transfer for neurosurgical consult was unsuccessful as patient was asymptomatic. Patient is currently on IV vancomycin, acetazolamide 250 IV twice daily, citric acid/sodium citrate 30 mL p.o. twice daily, D5W 120 cc/h, sliding scale insulin, levothyroxine 175 mcg p.o. ACBR, lidocaine patch as needed, promethazine IV every 6 hours, simethicone as needed. Nephrology consulted for recurrent hypokalemia and metabolic acidosis. Home medications levothyroxine 100 mcg, lovastatin 40 mg, hydrochlorothiazide 25 mg, Metformin 500 mg twice daily, Jardiance 10 mg 06/02/2024: Patient seen at bedside, patient reports home vomiting and nausea improved, is able to drink Ensure protein drink. Reported 7 episodes of diarrhea. Reports feeling better compared to the condition on the admission. Labs show sodium 148, potassium 2.9, bicarb 19.3, improving, BUN less than 5, creatinine 0.9, GFR more than 60. No need to replete bicarb today. Potassium was replaced by primary team. Will continue to monitor daily CBC and CMP. 06/03/2024 patient resting comfortably her nausea vomiting markedly improved. She is able to tolerate solid diet today.Potassium and bicarbonate are slightly better. Creatinine is normal. Patient able to tolerate Megace. 06/05/2024 patient currently seen in medical floor. Able to tolerate solids. Nausea, vomiting much better. Still having right upper quadrant abdominal pain. Noted HIDA scan pending. Potassium bicarbonate seems to be better. Able to tolerate Megace. Patient currently on amitriptyline. Review of Systems Review of Systems Narrative Review of Systems: ROS: -CONSTITUTIONAL: Denies fever and chills. Patient feeling much better -HEENT: Denies changes in vision and hearing. -RESPIRATORY: Denies SOB and cough. -CV: Denies palpitations and Chest Pain. -GI: Denies constipation and diarrhea. Nausea vomiting markedly improved. -: Denies dysuria and urinary frequency. -MSK: Denies myalgia and joint pain. -SKIN: Denies rash and pruritus. -NEUROLOGICAL: Denies syncope. -PSYCHIATRIC: Admits depression Exam Vital Signs Temp Pulse Resp BP Pulse Ox O2 Del Method 36.6 C 99 17 140/86 H 98 Room Air 06/05/24 08:00 06/05/24 08:00 06/05/24 08:00 06/05/24 08:00 06/05/24 08:00 06/05/24 08:00 Narrative Exam Physical Exam General: Awake and in no acute distress. HEENT: Normocephalic, atraumatic, Heart: Regular rate and rhythm, no murmurs. Lungs: Clear to auscultation with no wheezing or crackles. Abdomen: Nontender non-distended no guarding or rebound tenderness. Neurologic: Alert and oriented x3, no gross neurological deficit, and patient able to move all 4 extremities. Extremities: No edema. Skin: No rash or ecchymoses. Objective Labs 06/06/24 04:50 06/06/24 04:50 Labs: Laboratory Results - last 24 hr 06/05/24 06/05/24 06/05/24 05:05 07:30 07:30 WBC 4.9 RBC 2.32 L Hgb 7.0 L D Hct 22.1 L MCV 95 MCH 30.2 MCHC 31.7 RDW Std Deviation 71.7 H Plt Count 312 Neut % (Auto) 47 Lymph % (Auto) 27 [place] % (Auto) 15 H Eos % (Auto) 9 Baso % (Auto) 1 Neut # (Auto) 2.3 Lymph # (Auto) 1.3 [place] # (Auto) 0.7 Eos # (Auto) 0.4 Baso # (Auto) 0.1 Immature Gran # (Auto) 0.02 H Absolute Nucleated RBC 0.00 Immature Gran % 0 Nucleated RBC % 0 Sodium 139 Potassium 3.1 L Chloride 111 H Carbon Dioxide 18.2 L Anion Gap 10 BUN < 5 L Creatinine 0.8 Estim Creat Clear Calc 81.1 eGFR > 60 BUN/Creatinine Ratio 6 L Glucose 105 Calculated Osmolality 274 L Calcium 8.7 Corrected Calcium 9.1 Phosphorus 3.4 Magnesium 2.0 Total Bilirubin 0.4 AST 12 ALT 12 Alkaline Phosphatase 44 L Total Protein 6.1 Albumin 3.5 Globulin 2.6 Albumin/Globulin Ratio 1.3 Vancomycin Trough 12.6 H Cancelled ABG Interpretation ABG results: 05/14/24 05/15/24 17:25 16:48 VBG pH 7.49 7.39 VBG pCO2 21 L 28 L VBG pO2 35 43 VBG Base Excess -5 L -7 L Assessment & Plan Assessment and plan (1) Lumbar disc disease: Status: Acute (2) Intractable nausea and vomiting: Status: Resolved (3) Diabetes mellitus type 2, insulin dependent: Status: Acute Additional Assessment & Plan Additional Plan: Ms Palumbo is a 59-year-old female with a past medical history of hypertension, diabetes, hypothyroidism, dermoid cyst and hyperlipidemia who was admitted on 05/14/2024 for intractable nausea, vomiting and diarrhea. Nephrology consulted for recurrent hypokalemia and metabolic acidosis. # Hypokalemia # Metabolic acidosis Marked improvement in nausea, vomiting. So far all the studies are negative. Suspect somatization from depression- much better now. Continue with elavil, Megace. c/o RUQ abd pain-HIDA scan ordered-showed abnormal ejection fraction. Might need gallbladder surgery. # Hypernatremia # Hypercalcemia # Dehydration Improved # Hypothyroidism Currently on IV levothyroxine. #Epidural abscess #Osteomyelitis/discitis Management as per primary team Patient with PICC line.
[2024-06-05] MEDS: SODIUM BICARB INJ 8.4% 1 mEq/ML VIAL 50 ML 50 MEQ IV (10:06)
[2024-06-05] MEDS: VANCOMYCIN/D5W 1,250 MG IVPB 250 ML 120 MG IV (10:06)
[2024-06-05 10:13] LABS: Hematocrit 25.5 % (36.0-46.0)
[2024-06-05 10:16] LABS: Hemoglobin 8.3 g/dL (12.0-16.0)
[2024-06-05] MEDS: INSULIN LISPRO (AdmeLOG) 1 UNIT/0.01 ML UNIT SC ×2 (11:40→16:24)
[2024-06-05] MEDS: POTASSIUM ACET IV (12:07)
[2024-06-05] MEDS: WATER IV (12:07)
[2024-06-05] MEDS: DEXTROSE 5% IV (12:07)
--- NOTE | 2024-06-05 13:02 | ESCONSULT_ITS ---
HPI Consult details Consult date: 06/05/24 Reason for consultation narrative: Biliary dyskinesia History of present illness: 59-year-old female with history of diabetes, hypertension, hyperlipidemia and hypothyroidism has been admitted since May 15, 2024 for intractable nausea and vomiting. She has had extensive workup including EGD, CT scans, abdominal ultrasound, HIDA scan and gastric emptying studies. HIDA scan revealed mild b iliary dyskinesia with ejection fraction of 23%. Remainder of the workup has been essentially unremarkable, except the CT scan and pelvic MRI revealed a fat- containing pelvic mass. Over the past few days her symptoms have improved she has been able to eat and tolerate food. Review of Systems Constitutional Constitutional: Denies chills, Denies fever(s) and Denies weight loss Cardiovascular Cardiovascular: Denies chest pain Respiratory Respiratory: Denies cough Gastrointestinal Gastrointestinal: Denies abdominal pain, Reports nausea and Reports vomiting Genitourinary Genitourinary: Denies difficulty voiding Hematologic/Lymphatic Hematologic/Lymphatic: Denies easy bleeding and Denies easy bruising Past Medical History Surgical History OTHER SURGICAL HX: Multiple orthopedic surgeries including shoulder, ankle, knee and carpal tunnel Social History SMOKING STATUS: Never smoker SUBSTANCE USE: does not use ALCOHOL: Current (Occasionally) Meds Home Medications and Allergies Home Medications ?Medication ?Instructions ?Recorded ?Confirmed ?Type hydrochlorothiazide 25 mg tablet 25 mg PO QAM 03/25/24 04/18/24 History levothyroxine 125 mcg tablet 125 mcg PO QDAY 03/25/24 04/18/24 History lovastatin 40 mg tablet 40 mg PO QDAY 03/25/24 04/18/24 History Allergies Allergy/AdvReac Type Severity Reaction Status Date / Time No Known Allergies Allergy Verified 05/14/24 17:08 Exam Vital Signs Temp Pulse Resp BP Pulse Ox O2 Del Method 97.8 F 99 17 131/81 H 97 Room Air 06/05/24 11:46 06/05/24 11:46 06/05/24 11:46 06/05/24 11:46 06/05/24 11:46 06/05/24 11:46 Constitutional Constitutional: no acute distress Routine Abdominal Exam Abdominal: Present soft and normoactive bowel sounds; Absent tenderness or distended Results Results: Laboratory Laboratory results: results reviewed Results: Imaging Imaging narrative: CT scan of abdomen pelvis, abdominal ultrasound and HIDA scan images reviewed, radiologist interpretation noted Assessment & Plan Problem List (1) Intractable nausea and vomiting: Status: Resolved (2) Biliary dyskinesia: Status: Acute Plan Patient has mild biliary dyskinesia with ejection fraction of 23%. I had a lengthy discussion with the patient and explained to her that her ejection fraction of the gallbladder is mildly reduced and cholecystectomy may or may not improve her symptoms of nausea or vomiting. She wishes to think more about cholecystectomy prior to making her decision. She did ask some questions about postcholecystectomy course and her questions were answered to her satisfaction.
--- NOTE | 2024-06-05 13:42 | ESPR_ITS ---
<Statement entered by Иван Boland MD - 06/05/24 16:49> Patient was seen and examined at bedside. Denied any nausea or vomiting. Patient reported that she has been eating very well for the past 4 days. Today patient ate all her meals including meat and Lebanese fries. She does not feel nauseous. She reported that her pain still exist and worsening with palpation. Because we noticed that the patient has biliary ejection fraction of 23%, we reached out to the GI specialist Dr. Reardon he recommended to consult general surgery for that reason we consulted the general surgeon Dr. Davis was consulted were pending his recommendations. Today we will switch the patient medications to oral including Reglan and promethazine to assess her probability of improving with oral medications on discharge. At this time we will hold on changing the IV Synthyroid as the patient will probably be n.p.o. tomorrow for possible surgery by Dr Davis Potassium level today was 3.1 for that reason we repleted with 40 mill equivalent of potassium through central line. Hemoglobin today was found to be 7 however when we repeated H&H it was found to be 8.3 no need for blood transfusion at this time and no source of bleeding. - Patient's plan and care discussed with my attending, Dr. Freddie Boland MD Internal Medicine PGY-2 Documentation for date of: 06/05/24 Subjective Subjective Interval history: Pt examined at bedside today, no acute overnight events. Says she is feeling better, feels stronger and says she noticed she looks less pale in her face. Has not vomited in 4 days, diarrhea has improved and has not felt nausea. She was able to eat her breakfast toast this morning. No other complaints at this time. Exam Vital Signs Temp Pulse Resp BP Pulse Ox O2 Del Method 97.8 F 99 17 131/81 H 97 Room Air 06/05/24 11:46 06/05/24 11:46 06/05/24 11:46 06/05/24 11:46 06/05/24 11:46 06/05/24 11:46 Narrative Exam General: AAOx3, NAD, looks stronger and more awake with energy HEENT: Moist mucous membranes, conjunctiva clear, EOMI, PERRLA, Cardiovascular: S1, S2, radial pulses +2 bilat, RRR Pulmonary: CTAB bilat no cough, no wheezing GI: tenderness to light palpitation in both RUQ and LUQ, + rebound tenderness, no guarding, or distension, bowel sounds are present Extremities: No presence of trace or pitting edema in lower extremities bilaterally, dorsalis pedis pulses +2 bilaterally, L upper hand in site of IV erythematous and TTP Neuro: AAOx3, resting tremor in UE bilat Psych: Good judgement, thought and behavior. Cooperative Objective Labs 06/05/24 07:30 06/05/24 07:30 Labs: Laboratory Results - last 24 hr 06/05/24 06/05/24 06/05/24 05:05 07:30 07:30 WBC 4.9 RBC 2.32 L Hgb 7.0 L D 8.3 L Hct 22.1 L 25.5 L MCV 95 MCH 30.2 MCHC 31.7 RDW Std Deviation 71.7 H Plt Count 312 Neut % (Auto) 47 Lymph % (Auto) 27 [place] % (Auto) 15 H Eos % (Auto) 9 Baso % (Auto) 1 Neut # (Auto) 2.3 Lymph # (Auto) 1.3 [place] # (Auto) 0.7 Eos # (Auto) 0.4 Baso # (Auto) 0.1 Immature Gran # (Auto) 0.02 H Absolute Nucleated RBC 0.00 Immature Gran % 0 Nucleated RBC % 0 Sodium 139 Potassium 3.1 L Chloride 111 H Carbon Dioxide 18.2 L Anion Gap 10 BUN < 5 L Creatinine 0.8 Estim Creat Clear Calc 81.1 eGFR > 60 BUN/Creatinine Ratio 6 L Glucose 105 Calculated Osmolality 274 L Calcium 8.7 Corrected Calcium 9.1 Phosphorus 3.4 Magnesium 2.0 Total Bilirubin 0.4 AST 12 ALT 12 Alkaline Phosphatase 44 L Total Protein 6.1 Albumin 3.5 Globulin 2.6 Albumin/Globulin Ratio 1.3 Vancomycin Trough 12.6 H Cancelled ABG Interpretation ABG results: 05/14/24 05/15/24 17:25 16:48 VBG pH 7.49 7.39 VBG pCO2 21 L 28 L VBG pO2 35 43 VBG Base Excess -5 L -7 L Quality Measures Quality Measures VTE prophylaxis (Heparin ) Assessment & Plan Assessment Current Active Medications: Generic Name Dose Route Start Last Admin Trade Name Freq PRN Reason Stop Dose Admin Acetaminophen 650 mg 05/15/24 18:27 05/31/24 14:37 Acetaminophen 325 Mg Tablet PO 06/14/24 18:26 650 mg Q4HR PRN Administration Fever >101 or pain 1-3 Hydrocodone Bitart/Acetaminophen 1 tab 05/31/24 16:33 06/05/24 09:18 Hydrocodone/Apap 5/325 Tablet PO 06/05/24 16:32 1 tab Q6HR PRN Administration Pain 4-7 or breakthrough pain Amitriptyline HCl 25 mg 06/01/24 21:00 06/04/24 20:09 Amitriptyline Hcl 25 Mg Tablet PO 07/01/24 20:59 25 mg HS MEGAN Administration Dextrose 25 ml 06/04/24 20:00 Dextrose 50%-Water Inj 50 Ml Syringe IV 07/04/24 19:59 Q15MIN PRN BG 50-70 responsive npo pt Dextrose 50 ml 06/04/24 20:00 Dextrose 50%-Water Inj 50 Ml Syringe IV 07/04/24 19:59 Q15MIN PRN BG <50 OR BG <70 & pt unresponsive Glucagon 1 mg 05/15/24 05:02 Glucagon Inj 1 Mg Vial IM Q15MIN PRN BG <70, and no IV access Glucagon 1 mg 06/04/24 20:00 Glucagon Inj 1 Mg Vial IM Q15MIN PRN BG <70, and no IV access Vancomycin HCl/Dextrose 250 mls @ 120 mls/hr 05/31/24 10:00 06/05/24 10:06 Vancomycin/D5w 1,250 Mg Ivpb IV 06/07/24 09:59 120 mls/hr QDAY@1000 MEGAN Administration Protocol Dextrose/Sodium Chloride 1,000 mls @ 125 mls/hr 06/04/24 15:45 06/05/24 09:19 D5-1/2ns IV 07/04/24 15:44 125 mls/hr .Q8H MEGAN Administration Potassium Acetate 40 meq/ 270 mls @ 60 mls/hr 06/05/24 11:00 06/05/24 12:07 Dextrose IV 06/05/24 15:29 60 mls/hr X1 ONE Administration Insulin Human Lispro 0 unit 06/04/24 21:00 06/05/24 11:40 Insulin Lispro (Admelog) 1 Unit/0.01 Ml Unit SC 07/04/24 20:59 2 unit ACHS MEGAN Administration Protocol Levothyroxine Sodium 50 mcg 05/31/24 09:00 06/05/24 09:19 Levothyroxine Inj 100 Mcg Vial IV 06/30/24 08:59 50 mcg QDAY MEGAN Administration Lidocaine 1 patch 05/21/24 09:21 05/31/24 21:07 Lidocaine 5% 1 Patch TOP 06/20/24 09:20 1 patch UD PRN Administration PAIN Protocol Megestrol Acetate 400 mg 05/31/24 09:15 06/05/24 09:18 Megestrol Acet Susp 400 Mg/10 Ml Udc PO 06/30/24 09:14 400 mg BID MEGAN Administration Metoclopramide HCl 5 mg 05/31/24 18:00 06/05/24 11:32 Metoclopramide Inj 5 Mg/Ml Vial 2 Ml IVP 06/30/24 17:59 5 mg Q6HR MEGAN Administration Protocol Multivitamins 1 tab 06/03/24 11:30 06/05/24 09:18 Multivitamins Tablet PO 07/03/24 11:29 1 tab QDAY MEGAN Administration Ondansetron HCl 4 mg 05/19/24 09:48 05/31/24 23:50 Ondansetron Inj 2 Mg/Ml Inj 2 Ml IV 06/18/24 09:47 4 mg Q6HR PRN Administration NAUSEA OR VOMITING Protocol Pharmacy Consult 1 each 05/22/24 09:00 Vancomycin Pharmacy To Dose 1 Each Each IV 06/21/24 08:59 QDAY PRN CONSULT Promethazine HCl 25 mg 05/31/24 13:15 06/05/24 11:32 Promethazine Hcl 25 Mg Tablet PO 06/30/24 13:14 25 mg Q6HR MEGAN Administration Simethicone 80 mg 05/26/24 11:42 Simethicone 80 Mg Chew PO 06/25/24 11:41 QID PRN GAS Sodium Chloride 2.5 ml 06/04/24 09:00 06/05/24 09:22 Sodium Chloride 0.9% Inj 10 Ml Vial IV 07/04/24 08:59 2.5 ml DAILY MEGAN Administration Plan 59-year-old female with a past medical history of hypertension, diabetes, hypothyroidism and hyperlipidemia who presented to the ED on 05/14/2024 with abdominal pain, nausea and vomiting that has persisted over the last 2 months. The patient has been admitted for management of intractable nausea and vomiting, starvation ketosis. Patient on imaging was found to have spinal epidural abscess with multiple attempts to transfer the patient to a nursing care various institutions infiltrative patient and recommend conservative management. #Intractable nausea and vomiting #? Biliary dyskinesia #? Cyclic vomiting syndrome Gastric emptying study shows normal motility Spoke with GI, recommends new antiemetic regimen before considering other workup Nephrology thinks that patient may have nausea and vomiting related to depression Pt is able to tolerate water, clear ensure and apple juice, but nothing else, vomits from any food especially eggs Patient tolerates apple juice, cold water, Ensure clear apple flavor, fruits and veggies including apples, carrots, grapes, celery, and jello HIDA shows reduced EJ ~23% Will consult surgery if pt will benefit from cholecystectomy for symptoms and if this is biliary dyskinesia Will transition to oral antiemetics at this time as pt is improving Plan: ?Special diet request -Zofran PO as needed -Reglan 5 mg PO every 6 hours ?Promethazine 25 mg p.o. every 6 hours -Encourage p.o. intake as tolerated, Megace added by nephrology ?Continue amitriptyline, and megace -Neurology on case appreciate recommendations -GI on the case appreciate recommendations -*General Surgery consult #Epidural abscess #Osteomyelitis/discitis Found on lumbar MRI Discussed case with multiple institutions rejected the case recommended conservative management Will continue trying to send the patient for neurosurgical evaluation Currently, patient denies any lower extremity weakness, saddle anesthesia and denies any fecal or urinary incontinence ID recommends for pt to have drainage of abscess at some point ID recommends 2 g daily Rocephin and doxycycline, however patient cannot take doxycycline as she already has GI upset Will eventually adjust rocephin 2g daily once pt is d/c to SNF Plan: -On IV vancomycin, and Rocephin 2g IV BID -ID consulted, appreciate recommendations -Continue to pursue transfer #Metabolic acidosis Current bicarb ~18 Plan: ?Nephrology on consult, appreciate recs #Electrolyte abnormalities #Hypokalemia secondary to #GI losses #Diarrhea C diff negative Plan: ?Replete as needed ?Treat as above with antiemetics ?As above #Type 2 diabetes mellitus A1c 6.8 -on insulin sliding scale #Hypothyroidism Patient noted to have TSH of 75 however T4 at 0.76 ? The patient was started on Synthroid 175 mcg p.o. but unable to tolerate p.o. medication, will switch to IV levothyroxine. #Health Maintenance Disposition: Medsurg DVT prophylaxis: Heparin GI prophylaxis: Simethicone Diet: Special diet request CODE STATUS: Full Patient seen and care discussed with my senior resident, Dr. Boland, and my attending physician, Dr. Freddie Solorio, PGY-1 Attending Provider Attestation/Addendum I have examined the patient, reviewed labs and imaging findings, discussed the case with the resident(s), and reviewed entered orders. I agree with the plan of care as outlined in this note, with these additional summaries/recommendations: Patient seen at bedside. No acute overnight events. Patient's intractable nausea and vomiting continues to improve. Oral intake continues to be poor although significantly improved with diet changes and current medicines. Patient continues to have intractable hypokalemia and will remain hospitalized. GI following. Previous gastric emptying study within normal limits. Patient does endorse some intermittent right upper quadrant pain and HIDA scan was obtained again which revealed abnormal gallbladder ejection fraction 23% with normal greater than 35%. Possible patient has biliary dyskinesia although difficult to discern if contributing to patients symptoms. Consult general surgery, recommendations appreciated. Other possible etiologies include somatization versus hypothyroidism versus functional disorder versus psychiatric component versus gastroparesis despite normal emptying study versus abnormal gallbladder ejection fraction. Continue special diet request for small frequent meals with fruits, carrots, celery, ensure and grapes. Continue amitriptyline for possible depression and nausea and appears to have a positive response. Continue promethazine and Reglan as tolerated. We will continue to give electrolyte replacement for intractable hypokalemia. Continue IV Rocephin and vancomycin for epidural abscess plus osteomyelitis/discitis. Arranging outpatient antibiotics with case management. Continue basal and bolus insulin for diabetes mellitus type 2. Repeat hematology and chemistry panel in AM. Dr. Frazier
--- NOTE | 2024-06-05 14:09 | ESPR_ITS ---
Documentation for date of: 06/05/24 Subjective Subjective Interval history: Patient evaluated Case discussed with internal medicine team CCK EF 23% Recommend surgical consultation I am not sure taking the gallbladder out will help with nausea vomiting although there is a possibility Exam Vital Signs Temp Pulse Resp BP Pulse Ox O2 Del Method 97.8 F 99 17 131/81 H 97 Room Air 06/05/24 11:46 06/05/24 11:46 06/05/24 11:46 06/05/24 11:46 06/05/24 11:46 06/05/24 11:46 Objective Labs 06/05/24 07:30 06/05/24 07:30 Labs: Laboratory Results - last 24 hr 06/05/24 06/05/24 06/05/24 05:05 07:30 07:30 WBC 4.9 RBC 2.32 L Hgb 7.0 L D 8.3 L Hct 22.1 L 25.5 L MCV 95 MCH 30.2 MCHC 31.7 RDW Std Deviation 71.7 H Plt Count 312 Neut % (Auto) 47 Lymph % (Auto) 27 [place] % (Auto) 15 H Eos % (Auto) 9 Baso % (Auto) 1 Neut # (Auto) 2.3 Lymph # (Auto) 1.3 [place] # (Auto) 0.7 Eos # (Auto) 0.4 Baso # (Auto) 0.1 Immature Gran # (Auto) 0.02 H Absolute Nucleated RBC 0.00 Immature Gran % 0 Nucleated RBC % 0 Sodium 139 Potassium 3.1 L Chloride 111 H Carbon Dioxide 18.2 L Anion Gap 10 BUN < 5 L Creatinine 0.8 Estim Creat Clear Calc 81.1 eGFR > 60 BUN/Creatinine Ratio 6 L Glucose 105 Calculated Osmolality 274 L Calcium 8.7 Corrected Calcium 9.1 Phosphorus 3.4 Magnesium 2.0 Total Bilirubin 0.4 AST 12 ALT 12 Alkaline Phosphatase 44 L Total Protein 6.1 Albumin 3.5 Globulin 2.6 Albumin/Globulin Ratio 1.3 Vancomycin Trough 12.6 H Cancelled Impressions Impression: # Nausea vomiting improved # Biliary dyskinesia Surgical consultation ABG Interpretation ABG results: 05/14/24 05/15/24 17:25 16:48 VBG pH 7.49 7.39 VBG pCO2 21 L 28 L VBG pO2 35 43 VBG Base Excess -5 L -7 L Assessment & Plan A&P Narrative mild anemia presumptive gastroparesis with controlled dm dermoid tumor hypothyroid htn hld possible epidural abscess with neg cx on empiric vanco/zosyn ideally, this is drained or pt is referred for such so that if the referral is denied, please document any rationale for no intervention so we all can know why that is the case ok to change zosyn to rocephin and vanco to po doxy and see if other meds can be changed to po too. if empiric rx is to be the goal, then use agents that are supported by micro or are easy to use. she likely needs dermoid addressed at some point as well. will not see again unless requested as inpt current abx are more toxic and require more daily doses then alternative empiric rx. favor rocephin 2 gm iv daily and po doxy 100 bid thru 07/09 with weekly cbc, renal panel, esr and line removal at end of rx if process remains, please re visit drainage at end of iv run and extend abx will see prn. f/u with dr Reardon on the tpn. I generally do not provide that rx. Time Spent With Patient Time: Total time spent is greater than 50% in coordination of care (as documented) at patient's floor/unit and/or counseling patient:
--- NOTE | 2024-06-05 14:34 | PC.SS ---
Rounding Note: Plan is for surgical procedure tomorrow. Dr. Marie to perform procedure.
[2024-06-05] MEDS: METOCLOPRAMIDE 5 MG TABLET PO ×2 (17:25→23:57)
[2024-06-05] MEDS: AMITRIPTYLINE HCL 25 MG TABLET PO (20:14)
--- NOTE | 2024-06-05 22:45 | PD.NEUROPROG ---
Documentation for date of: 06/05/24 Subjective Subjective Interval history: Ms. Palumbo was seen in [facility] today, doing little better, she is tolerating oral diet well, able to walk with a walker. Exam - Neurology Vital Signs Temp Pulse Resp BP Pulse Ox O2 Del Method 98.3 F 103 H 18 120/77 98 Room Air 06/05/24 20:00 06/05/24 20:00 06/05/24 20:00 06/05/24 20:00 06/05/24 20:00 06/05/24 20:00 Narrative Exam GENERAL APPEARANCE: Well hydrated, well-nourished in no acute distress. HEENT: Normocephalic, atraumatic, extraocular movements intact. Pupils: Equal reacting to light CARDIOVASULAR: Heart: S1, S2 heard, regular without S3-S4 or murmur no rubs or gallops. LUNGS/CHEST: Clear to auscultation bilaterally. No rails, rhonchi, or wheezing. Normal inspection. ABDOMEN: Soft, nontender, with normal bowel sounds. No pulsatile masses. No rebound, rigidity, or guarding. Normal inspection and palpation. EXTREMITIES: Normal inspection and palpation. No edema, clubbing or cyanosis. SKIN: Warm and dry without rashes. Normal inspection. MUSCULOSKELETAL: No cervical, thoracic, lumbar or midline bony tenderness. Normal inspection. NEURO: Alert, awake and oriented x3. Cranial nerves: II through XII grossly intact. Speech and language: Normal with no dysarthria or dysphasia. Motor system: Tone and bulk: Normal: Strength: moves all extremities, No pronator drift noted. Deep tendon reflexes: 2+ bilaterally symmetrical. Plantar reflex: Downgoing bilaterally. Sensory system: subjective paresthesias in the right LE noted. Coordination: Intact to [id number]-[id number]-[id number] test bilaterally. No ataxia, no dysmetria, or dysdiadochokinesia noted. No intention tremors noted. Gait: walks with a walker; No signs of meningeal irritation noted. PSYCHIATRIC: Normal mood and affect. Objective Labs 06/05/24 07:30 06/05/24 07:30 Labs: Laboratory Results - last 24 hr 06/05/24 06/05/24 06/05/24 05:05 07:30 07:30 WBC 4.9 RBC 2.32 L Hgb 7.0 L D 8.3 L Hct 22.1 L 25.5 L MCV 95 MCH 30.2 MCHC 31.7 RDW Std Deviation 71.7 H Plt Count 312 Neut % (Auto) 47 Lymph % (Auto) 27 [place] % (Auto) 15 H Eos % (Auto) 9 Baso % (Auto) 1 Neut # (Auto) 2.3 Lymph # (Auto) 1.3 [place] # (Auto) 0.7 Eos # (Auto) 0.4 Baso # (Auto) 0.1 Immature Gran # (Auto) 0.02 H Absolute Nucleated RBC 0.00 Immature Gran % 0 Nucleated RBC % 0 Sodium 139 Potassium 3.1 L Chloride 111 H Carbon Dioxide 18.2 L Anion Gap 10 BUN < 5 L Creatinine 0.8 Estim Creat Clear Calc 81.1 eGFR > 60 BUN/Creatinine Ratio 6 L Glucose 105 Calculated Osmolality 274 L Calcium 8.7 Corrected Calcium 9.1 Phosphorus 3.4 Magnesium 2.0 Total Bilirubin 0.4 AST 12 ALT 12 Alkaline Phosphatase 44 L Total Protein 6.1 Albumin 3.5 Globulin 2.6 Albumin/Globulin Ratio 1.3 Vancomycin Trough 12.6 H Cancelled ABG Interpretation ABG results: 05/14/24 05/15/24 17:25 16:48 VBG pH 7.49 7.39 VBG pCO2 21 L 28 L VBG pO2 35 43 VBG Base Excess -5 L -7 L Assessment & Plan Assessment and plan (1) Intractable nausea and vomiting: Status: Resolved Assessment and plan: Diarrhea continues, neg for C. difficile as she is on antibiotics terminal makeup operator. (2) Lumbar disc disease: Status: Acute Assessment and plan: with discitis. Continue with IV antibiotics. improving. if persistent, will do EMG AND NCS of both LE as an outpatient. (3) Diabetes mellitus type 2, insulin dependent: Status: Acute Assessment and plan: Continue to check fingerstick glucose and follow sliding scale insulin per protocol
[2024-06-06] VITALS (9 sets, daily range): BP systolic 114–128; BP diastolic 76–87; PULSE 85–99; RESP 16–18; TEMP 36.4–36.8; O2SAT 96–98
[2024-06-06] MEDS: METOCLOPRAMIDE 5 MG TABLET PO ×3 (05:03→23:52)
[2024-06-06] MEDS: PROMETHAZINE HCL 25 MG TABLET PO ×3 (05:03→23:52)
[2024-06-06 05:55] LABS: Basophils # (Auto) 0.1 Thou/mm3 (0.0-0.2); Basophils % (Auto) 1 % (0-2.5); Eosinophils # (Auto) 0.4 Thou/mm3 (0.0-0.5); Eosinophils % (Auto) 7 % (0-10); Hematocrit 23.3 % (36.0-46.0); Immature Granulocytes % (Auto) 1 % (0-0); Immature Granulocytes Auto 0.03 Thou/mm3 (0.00-0.00); Lymphocytes # (Auto) 1.4 Thou/mm3 (1.0-4.8); Lymphocytes % (Auto) 26 % (10-50); Mean Corpuscular HGB Conc 32.2 g/dl (31.0-37.0); Mean Corpuscular Hemoglobin 30.2 pg (25.0-35.0); Mean Corpuscular Volume 94 fL (80-100); Monocytes # (Auto) 0.7 Thou/mm3 (0.0-0.8); Monocytes % (Auto) 13 % (0-12); Neutrophils # (Auto) 2.9 Thou/mm3 (1.8-7.7); Neutrophils % (Auto) 53 % (37-80); Nucleated Red Blood Cell % 0 /100 WBC (0); Platelet Count 269 Thou/mm3 (140-440); RDW Standard Deviation 69.9 fL (36.4-46.3); Red Blood Count 2.48 Miln/mm3 (4.00-5.20); White Blood Count 5.4 Thou/mm3 (3.6-11.0)
[2024-06-06 06:10] LABS: Hemoglobin 7.6 g/dL (12.0-16.0)
[2024-06-06 06:31] LABS: Alanine Aminotransferase 12 U/L (10-49); Albumin, Serum 3.4 gm/dL (3.5-5.0); Albumin/Globulin Ratio 1.5 (1.2-2.2); Alkaline Phosphatase 43 U/L (46-116); Anion Gap 9 (7-16); Aspartate Amino Transferase 19 U/L (0-34); BUN/Creatinine Ratio 7 Ratio (12-20); Bilirubin,Total 0.3 mg/dL (0.3-1.2); Blood Urea Nitrogen 5 mg/dL (9-23); Calcium 8.7 mg/dL (8.3-10.6); Calcium (Corrected) 9.2 mg/dL (8.5-10.1); Carbon Dioxide 20.7 mMol/L (20.0-31.0); Chloride 111 mMol/L (98-107); Creatinine (Component) 0.7 mg/dL (0.6-1.3); Estimated Creatinine Clearance 99.8 mL/min (>60); Globulin 2.3 gm/dL (2.3-3.5); Glucose 107 mg/dL (74-106); Magnesium 1.9 mg/dL (1.6-2.6); Osmolality,Calculated 278 (275-295); Phosphorous 3.9 mg/dL (2.4-5.1); Potassium 3.3 mMol/L (3.4-5.1); Sodium 141 mMol/L (136-145); Total Protein 5.7 gm/dL (5.7-8.2); eGFR > 60 See Note
[2024-06-06 06:35] LABS: Giardia Result NOT DETECTED
--- NOTE | 2024-06-06 08:37 | PC.SS ---
Follow up note: Surgery with Dr. Davis for bladder removal. Pt is requiring IV antibiotic Vanko and Rocephin both 2 grm 1 Xday until Jul 09, 2024 (Pending Dr. Rivera's recommendations for IV antibiotic). Insurance authorization is required.
[2024-06-06] MEDS: LEVOTHYROXINE INJ 100 mCg VIAL 50 MCG IV (08:56)
[2024-06-06] MEDS: SODIUM CHLORIDE 0.9% INJ 10 ML VIAL 2.5 ML IV (08:56)
[2024-06-06] MEDS: Magnesium Sulfate 1 gm Ivpb 1 GM/100 ML BAG IV (08:56)
[2024-06-06] MEDS: POTASSIUM CHL 20 mEq IVPB 20 MEQ/100 ML BAG 50 MEQ IV (09:04)
--- NOTE | 2024-06-06 10:29 | PC.NURSE ---
Dr. Story made aware of patient's central occluded, made aware that medication infusions have been unable to infuse. MD will review options, no new orders.
--- NOTE | 2024-06-06 12:22 | PD.NEPHPROG ---
Documentation for date of: 06/06/24 Subjective Subjective Interval history: Ms Palumbo is a 59-year-old female with a past medical history of hypertension, diabetes, hypothyroidism, dermoid cyst and hyperlipidemia who was admitted on 05/14/2024 for intractable nausea, vomiting and diarrhea. Patient was recently admitted at [facility] for evaluation of starvation ketosis, was taken to the ICU for further evaluation, did not require insulin drip and was transferred back to floors for evaluation of tractable nausea and vomiting. Patient was unable to tolerate gastric emptying study in the past, and EGD findings showed reflux esophagitis and was discharged on Reglan and erythromycin p.o. When coming to the ED this time she arrived afebrile and hypertensive. She was worked up and Labs showed WBC 6.8 Hgb 14.1 PLT 284 NA 130 5K2.5 CL 99 bicarb 18.2 anion gap 18 BUN 5 CR 0.9 glucose 104 calcium 10.2 lipase 71 beta hydroxybutyrate 4.6 UA showed 1+ protein 3+ ketones 12 WBC, urine hCG positive. VBG showed a pCO2 of 21 with a base excess of -5. EKG showed sinus rhythm with QTc of 468. The patient received 2.7 L of IV fluids, Zofran and potassium and was admitted for management of intractable nausea and vomiting/starvation ketosis. While on the floors patient was having persistent hypokalemia, despite having not vomited. With the progression of hospital course patient had multiple episodes of vomiting which worsened her hypokalemia, patient continues to receive potassium replacement. A number of agents including promethazine, Reglan, Zofran, erythromycin, Ativan and capsaicin were given to patient to manage her symptoms. Patient has on and off episodes of nausea and vomiting which she said can happen at any time, awakens her from sleep, reports occurring with certain fluids as well. Patient unable to tolerate p.o. medication. GI and neurology were consulted for further evaluation of etiology of persistent nausea, vomiting and diarrhea and newly seen horizontal bilateral nystagmus and blurry vision. Specialist recommendations included symptomatic control and further imaging studies. MRI of C-spine, T-spine and brain were done to look for any ideology such as mass effect, multiple sclerosis or any other pathology that could be affecting brain producing stimulation of vomiting center, but those images were unremarkable. Another cause that was pursued was possible relation of dermoid cyst relation to nausea and vomiting. Oncology was consulted who had recommended patient to get an HAND CIGAR MAKER consult. HAND CIGAR MAKER was consulted, recommended tumor markers and MRI of abdomen pelvis. Abdomen pelvis showed a 5.6 x 6.0 fat-containing mass consistent with dermoid tumor which did not require any surgical intervention at the time. Serum tumor markers were obtained including beta-hCG, AFP, CEA, CA125 which were all unremarkable although patient had beta-hCG of 10 in the urine. Patient did report back pain throughout the course of admission, and lumbar MRI was eventually done which showed focal lumbar disc bulges each 5 mm at the L4-L5 and L2-L3 levels, findings most consistent with osteomyelitis discitis L2-L3, L3-L4, and epidural abscess posterior to L1-L5 as above. Case was discussed with radiologist which did suspect epidural abscess, transfer for neurosurgical consult was unsuccessful as patient was asymptomatic. Patient is currently on IV vancomycin, acetazolamide 250 IV twice daily, citric acid/sodium citrate 30 mL p.o. twice daily, D5W 120 cc/h, sliding scale insulin, levothyroxine 175 mcg p.o. ACBR, lidocaine patch as needed, promethazine IV every 6 hours, simethicone as needed. Nephrology consulted for recurrent hypokalemia and metabolic acidosis. Home medications levothyroxine 100 mcg, lovastatin 40 mg, hydrochlorothiazide 25 mg, Metformin 500 mg twice daily, Jardiance 10 mg 06/02/2024: Patient seen at bedside, patient reports home vomiting and nausea improved, is able to drink Ensure protein drink. Reported 7 episodes of diarrhea. Reports feeling better compared to the condition on the admission. Labs show sodium 148, potassium 2.9, bicarb 19.3, improving, BUN less than 5, creatinine 0.9, GFR more than 60. No need to replete bicarb today. Potassium was replaced by primary team. Will continue to monitor daily CBC and CMP. 06/03/2024 patient resting comfortably her nausea vomiting markedly improved. She is able to tolerate solid diet today.Potassium and bicarbonate are slightly better. Creatinine is normal. Patient able to tolerate Megace. 06/06/2024 patient currently seen in medical floor. Able to tolerate solids. Nausea, vomiting much better. Still having right upper quadrant abdominal pain. Noted HIDA scan normal ejection fraction. Potassium, bicarbonate seems to be better. Able to tolerate Megace. Patient currently on amitriptyline. Patient might be going for surgery. Renal graham no further recommendations. Will sign off. Review of Systems Review of Systems Narrative Review of Systems: ROS: -CONSTITUTIONAL: Denies fever and chills. Patient feeling much better -HEENT: Denies changes in vision and hearing. -RESPIRATORY: Denies SOB and cough. -CV: Denies palpitations and Chest Pain. -GI: Denies constipation and diarrhea. Nausea vomiting markedly improved. -: Denies dysuria and urinary frequency. -MSK: Denies myalgia and joint pain. -SKIN: Denies rash and pruritus. -NEUROLOGICAL: Denies syncope. -PSYCHIATRIC: Depression is better Exam Vital Signs Temp Pulse Resp BP Pulse Ox O2 Del Method 36.6 C 85 18 122/80 98 Room Air 06/06/24 15:58 06/06/24 16:00 06/06/24 15:58 06/06/24 15:58 06/06/24 15:58 06/06/24 15:58 Narrative Exam Physical Exam General: Awake and in no acute distress. HEENT: Normocephalic, atraumatic, Heart: Regular rate and rhythm, no murmurs. Lungs: Clear to auscultation with no wheezing or crackles. Abdomen: Nontender non-distended no guarding or rebound tenderness. Neurologic: Alert and oriented x3, no gross neurological deficit, and patient able to move all 4 extremities. Extremities: No edema. Skin: No rash or ecchymoses. Objective Labs 06/06/24 04:50 06/06/24 04:50 Labs: Laboratory Results - last 24 hr 05/29/24 06/06/24 16:50 04:50 WBC 5.4 RBC 2.48 L Hgb 7.6 L Hct 23.3 L MCV 94 MCH 30.2 MCHC 32.2 RDW Std Deviation 69.9 H Plt Count 269 D Neut % (Auto) 53 Lymph % (Auto) 26 [place] % (Auto) 13 H Eos % (Auto) 7 Baso % (Auto) 1 Neut # (Auto) 2.9 Lymph # (Auto) 1.4 [place] # (Auto) 0.7 Eos # (Auto) 0.4 Baso # (Auto) 0.1 Immature Gran # (Auto) 0.03 H Absolute Nucleated RBC 0.00 Immature Gran % 1 H Nucleated RBC % 0 Sodium 141 Potassium 3.3 L Chloride 111 H Carbon Dioxide 20.7 Anion Gap 9 BUN 5 L Creatinine 0.7 Estim Creat Clear Calc 99.8 eGFR > 60 BUN/Creatinine Ratio 7 L Glucose 107 H Calculated Osmolality 278 Calcium 8.7 Corrected Calcium 9.2 Phosphorus 3.9 Magnesium 1.9 Total Bilirubin 0.3 AST 19 ALT 12 Alkaline Phosphatase 43 L Total Protein 5.7 Albumin 3.4 L Globulin 2.3 Albumin/Globulin Ratio 1.5 Stl Giardia Antigen NOT DETECTED Stl O & P Trichrome St O & P Concentrate Exam ABG Interpretation ABG results: 05/14/24 05/15/24 17:25 16:48 VBG pH 7.49 7.39 VBG pCO2 21 L 28 L VBG pO2 35 43 VBG Base Excess -5 L -7 L Assessment & Plan Assessment and plan (1) Lumbar disc disease: Status: Acute (2) Intractable nausea and vomiting: Status: Resolved (3) Diabetes mellitus type 2, insulin dependent: Status: Acute Additional Assessment & Plan Additional Plan: Ms Palumbo is a 59-year-old female with a past medical history of hypertension, diabetes, hypothyroidism, dermoid cyst and hyperlipidemia who was admitted on 05/14/2024 for intractable nausea, vomiting and diarrhea. Nephrology consulted for recurrent hypokalemia and metabolic acidosis. # Hypokalemia # Metabolic acidosis Marked improvement in nausea, vomiting. So far all the studies are negative. Suspect somatization from depression- much better now. Continue with elavil, Megace. c/o RUQ abd pain-HIDA scan ordered-showed abnormal ejection fraction. Might need gallbladder surgery. # Hypernatremia # Hypercalcemia # Dehydration Improved # Hypothyroidism Currently on IV levothyroxine. #Epidural abscess #Osteomyelitis/discitis Management as per primary team Patient with PICC line. Renal graham no further recommendations. Will sign off. Thank you for the consult.
[2024-06-06] MEDS: HEPARIN SOD LOCK SYR 100 UNIT/ML 500 UNIT IV (13:15)
[2024-06-06] MEDS: HYDROcodone/APAP 5/325 TABLET 1 TAB PO ×2 (13:15→22:09)
--- NOTE | 2024-06-06 13:59 | PC.NURSE ---
Administration of heparin in patient PICC line per orders, PICC line still not patent called to DR. Story went unanswered will continue to contact provider.
--- NOTE | 2024-06-06 14:48 | ESPR_ITS ---
<Statement entered by Иван Boland MD - 06/06/24 16:44> Patient was seen and examined at bedside. Patient is doing well, reported that she has been eating with no complications. Her hemoglobin stable at 7.6, potassium was found to be low 3.3 it was repleted with IV potassium. Her acidosis continued to improve significantly, and her sodium level today is 141, phosphorous stable at 3.9 and magnesium 1.9. Today Dr Davis discussed with the patient the option of cholecystectomy and he informed that as soon as the PICC line is fixed as it was clogged today. If it is not fixed we will insert the PICC line tomorrow morning and do the surgery soon after that. IV line was inserted to give the patient her medications. Will follow-up tomorrow with Dr Mcdaniels recommendations for the antibiotics for the custodial facility if he can switch the patient to Rocephin and another agent that can be p.o. to help with the disposition. Regarding her diarrhea patient still has soft episodes of bowel movements yesterday she reported she had 5 bowel movements. Nonbloody no mucus or blood and no abdominal pain except for the right upper quadrant pain. - Patient's plan and care discussed with my attending, Dr. Freddie Boland MD Internal Medicine PGY-2 Documentation for date of: 06/06/24 Subjective Subjective Interval history: Patient examined at bedside today. Patient had some premature atrial complexes overnight. Patient reports she is doing better and feeling stronger. She wants to go forward with a cholecystectomy. She understands that this may not resolve all her symptoms, however still wants to try. No other complaints at this time Exam Vital Signs Temp Pulse Resp BP Pulse Ox O2 Del Method 97.8 F 90 16 126/79 97 Room Air 06/06/24 11:46 06/06/24 12:00 06/06/24 11:46 06/06/24 11:46 06/06/24 11:46 06/06/24 11:46 Narrative Exam General: AAOx3, NAD, looks stronger and more awake with energy HEENT: Moist mucous membranes, conjunctiva clear, EOMI, PERRLA, Cardiovascular: S1, S2, radial pulses +2 bilat, RRR Pulmonary: CTAB bilat no cough, no wheezing GI: tenderness to light palpitation in both RUQ and LUQ, + rebound tenderness, no guarding, or distension, bowel sounds are present Extremities: No presence of trace or pitting edema in lower extremities bilaterally, dorsalis pedis pulses +2 bilaterally, L upper hand in site of IV erythematous and TTP Neuro: AAOx3, resting tremor in UE bilat Psych: Good judgement, thought and behavior. Cooperative Objective Labs 06/07/24 04:39 06/07/24 04:39 Labs: Laboratory Results - last 24 hr 05/29/24 06/06/24 16:50 04:50 WBC 5.4 RBC 2.48 L Hgb 7.6 L Hct 23.3 L MCV 94 MCH 30.2 MCHC 32.2 RDW Std Deviation 69.9 H Plt Count 269 D Neut % (Auto) 53 Lymph % (Auto) 26 [place] % (Auto) 13 H Eos % (Auto) 7 Baso % (Auto) 1 Neut # (Auto) 2.9 Lymph # (Auto) 1.4 [place] # (Auto) 0.7 Eos # (Auto) 0.4 Baso # (Auto) 0.1 Immature Gran # (Auto) 0.03 H Absolute Nucleated RBC 0.00 Immature Gran % 1 H Nucleated RBC % 0 Sodium 141 Potassium 3.3 L Chloride 111 H Carbon Dioxide 20.7 Anion Gap 9 BUN 5 L Creatinine 0.7 Estim Creat Clear Calc 99.8 eGFR > 60 BUN/Creatinine Ratio 7 L Glucose 107 H Calculated Osmolality 278 Calcium 8.7 Corrected Calcium 9.2 Phosphorus 3.9 Magnesium 1.9 Total Bilirubin 0.3 AST 19 ALT 12 Alkaline Phosphatase 43 L Total Protein 5.7 Albumin 3.4 L Globulin 2.3 Albumin/Globulin Ratio 1.5 Stl Giardia Antigen NOT DETECTED Stl O & P Trichrome St O & P Concentrate Exam ABG Interpretation ABG results: 05/14/24 05/15/24 17:25 16:48 VBG pH 7.49 7.39 VBG pCO2 21 L 28 L VBG pO2 35 43 VBG Base Excess -5 L -7 L Quality Measures Quality Measures VTE prophylaxis (Heparin ) Assessment & Plan Assessment Current Active Medications: Generic Name Dose Route Start Last Admin Trade Name Freq PRN Reason Stop Dose Admin Acetaminophen 650 mg 05/15/24 18:27 05/31/24 14:37 Acetaminophen 325 Mg Tablet PO 06/14/24 18:26 650 mg Q4HR PRN Administration Fever >101 or pain 1-3 Hydrocodone Bitart/Acetaminophen 1 tab 06/05/24 19:59 06/06/24 13:15 Hydrocodone/Apap 5/325 Tablet PO 06/10/24 19:58 1 tab Q6HR PRN Administration PAIN SCALE 4-10(Mod-Sev Amitriptyline HCl 25 mg 06/01/24 21:00 06/05/24 20:14 Amitriptyline Hcl 25 Mg Tablet PO 07/01/24 20:59 25 mg HS MEGAN Administration Dextrose 25 ml 06/04/24 20:00 Dextrose 50%-Water Inj 50 Ml Syringe IV 07/04/24 19:59 Q15MIN PRN BG 50-70 responsive npo pt Dextrose 50 ml 06/04/24 20:00 Dextrose 50%-Water Inj 50 Ml Syringe IV 07/04/24 19:59 Q15MIN PRN BG <50 OR BG <70 & pt unresponsive Glucagon 1 mg 06/04/24 20:00 Glucagon Inj 1 Mg Vial IM Q15MIN PRN BG <70, and no IV access Vancomycin HCl 1,500 mg/ 500 mls @ 200 mls/hr 06/06/24 10:00 Sodium Chloride IV 06/13/24 09:59 QDAY@1000 [facility] Protocol Insulin Human Lispro 0 unit 06/04/24 21:00 06/06/24 12:16 Insulin Lispro (Admelog) 1 Unit/0.01 Ml Unit SC 07/04/24 20:59 Not Given ACHS MEGAN Protocol Levothyroxine Sodium 50 mcg 05/31/24 09:00 06/06/24 08:56 Levothyroxine Inj 100 Mcg Vial IV 06/30/24 08:59 50 mcg QDAY MEGAN Administration Lidocaine 1 patch 05/21/24 09:21 05/31/24 21:07 Lidocaine 5% 1 Patch TOP 06/20/24 09:20 1 patch UD PRN Administration PAIN Protocol Megestrol Acetate 400 mg 05/31/24 09:15 06/06/24 08:57 Megestrol Acet Susp 400 Mg/10 Ml Udc PO 06/30/24 09:14 Not Given BID MEGAN Metoclopramide HCl 5 mg 06/05/24 18:00 06/06/24 12:16 Metoclopramide 5 Mg Tablet PO 07/05/24 17:59 Not Given Q6HR [facility] Multivitamins 1 tab 06/03/24 11:30 06/06/24 08:57 Multivitamins Tablet PO 07/03/24 11:29 Not Given QDAY MEGAN Ondansetron HCl 4 mg 06/05/24 13:45 Ondansetron Odt 4 Mg Tabrap PO 07/05/24 13:44 Q6HR PRN NAUSEA OR VOMITING Protocol Pharmacy Consult 1 each 05/22/24 09:00 Vancomycin Pharmacy To Dose 1 Each Each IV 06/21/24 08:59 QDAY PRN CONSULT Promethazine HCl 25 mg 05/31/24 13:15 06/06/24 12:16 Promethazine Hcl 25 Mg Tablet PO 06/30/24 13:14 Not Given Q6HR MEGAN Simethicone 80 mg 05/26/24 11:42 Simethicone 80 Mg Chew PO 06/25/24 11:41 QID PRN GAS Sodium Chloride 2.5 ml 06/04/24 09:00 06/06/24 08:56 Sodium Chloride 0.9% Inj 10 Ml Vial IV 07/04/24 08:59 2.5 ml DAILY MEGAN Administration Plan 59-year-old female with a past medical history of hypertension, diabetes, hypothyroidism and hyperlipidemia who presented to the ED on 05/14/2024 with abdominal pain, nausea and vomiting that has persisted over the last 2 months. The patient has been admitted for management of intractable nausea and vomiting, starvation ketosis. Patient on imaging was found to have spinal epidural abscess with multiple attempts to transfer the patient to a nursing care various institutions infiltrative patient and recommend conservative management. #Intractable nausea and vomiting #? Biliary dyskinesia #? Cyclic vomiting syndrome Gastric emptying study shows normal motility Spoke with GI, recommends new antiemetic regimen before considering other workup Nephrology thinks that patient may have nausea and vomiting related to depression Pt is able to tolerate water, clear ensure and apple juice, but nothing else, vomits from any food especially eggs Patient tolerates apple juice, cold water, Ensure clear apple flavor, fruits and veggies including apples, carrots, grapes, celery, and jello HIDA shows reduced EJ ~23% Will transition to oral antiemetics at this time as pt is improving Patient will be cholecystectomy by Dr. Davis, need to fix patient's PICC line, and replete serum electrolytes before cholecystectomy tomorrow Unsure if cholecystectomy will resolve patient's symptoms, however patient would like to try and as recommended by general surgery Plan: ?Special diet request -Zofran PO as needed -Reglan 5 mg PO every 6 hours ?Promethazine 25 mg p.o. every 6 hours -Encourage p.o. intake as tolerated, Megace added by nephrology ?Continue amitriptyline, and megace -Neurology on case appreciate recommendations -GI on the case appreciate recommendations ?General Surgery on consult, appreciate recs ? N.p.o. after midnight #Epidural abscess #Osteomyelitis/discitis Found on lumbar MRI Discussed case with multiple institutions rejected the case recommended conservative management Will continue trying to send the patient for neurosurgical evaluation Currently, patient denies any lower extremity weakness, saddle anesthesia and denies any fecal or urinary incontinence ID recommends for pt to have drainage of abscess at some point ID recommends 2 g daily Rocephin and doxycycline, however patient cannot take doxycycline as she already has GI upset Will eventually adjust rocephin 2g daily once pt is d/c to SNF Plan: -On IV vancomycin, and Rocephin 2g IV BID -ID consulted, appreciate recommendations -Continue to pursue transfer #Metabolic acidosis, improving Current bicarb ~21 Plan: ?Nephrology on consult, appreciate recs #Electrolyte abnormalities #Hypokalemia secondary to #GI losses #Diarrhea C diff negative Plan: ?Replete as needed ?Treat as above with antiemetics ?As above #Type 2 diabetes mellitus A1c 6.8 -on insulin sliding scale #Hypothyroidism Patient noted to have TSH of 75 however T4 at 0.76 ? The patient was started on Synthroid 175 mcg p.o. but unable to tolerate p.o. medication, will switch to IV levothyroxine. #Health Maintenance Disposition: Medsur DVT prophylaxis: Heparin GI prophylaxis: Simethicone Diet: Special diet request CODE STATUS: Full Patient seen and care discussed with my senior resident, Dr. Boland, and my attending physician, Dr. Freddie Solorio, PGY-1 Attending Provider Attestation/Addendum I have examined the patient, reviewed labs and imaging findings, discussed the case with the resident(s), and reviewed entered orders. I agree with the plan of care as outlined in this note, with these additional summaries/recommendations: Patient seen at bedside. No acute overnight events. Patient is pending cholecystectomy with general surgery. Resume diet for today and n.p.o. after midnight. Patient continues to have intractable hypokalemia and will remain hospitalized. GI following. Previous gastric emptying study within normal limits. Patient does endorse some intermittent right upper quadrant pain and HIDA scan was obtained again which revealed abnormal gallbladder ejection fraction 23% with normal greater than 35%. Possible patient has biliary dyskinesia although difficult to discern if contributing to patients symptoms. Consult general surgery, recommendations appreciated. Other possible etiologies include somatization versus hypothyroidism versus functional disorder versus psychiatric component versus gastroparesis despite normal emptying study versus abnormal gallbladder ejection fraction. Continue special diet request for small frequent meals with fruits, carrots, celery, ensure and grapes. Continue amitriptyline and Megace. Continue promethazine and Reglan as tolerated. We will continue to give electrolyte replacement for intractable hypokalemia. Continue IV Rocephin and vancomycin for epidural abscess plus osteomyelitis/discitis. Arranging outpatient antibiotics with case management. Continue basal and bolus insulin for diabetes mellitus type 2. Repeat hematology and chemistry panel in AM. Dr. Frazier
[2024-06-06] MEDS: CATHFLO (ALTEPLASE) INJ 2 MG, Sterile Water 2.2 ML INDWELLCAT (15:38)
--- NOTE | 2024-06-06 16:22 | PC.NURSE ---
Addendum entered by Mercedes Laughlin RN 06/06/24 17:59: 90 min recheck of Cathflo, no blood return, DR. Salamanca, covering for team B, made aware. She will put in orders for second round of CathFlo. Original Note: Administration of CathFlo per orders, assessment of patency at 30 unable to aspirate blood. Will allow Cathflo to indwell for additional 90 per order and reassess.
[2024-06-06] MEDS: Vancomycin Inj 1,500 MG in SODIUM CHLORIDE 0.9% 500 ML 500 ML 200 MG IV (16:46)
--- NOTE | 2024-06-06 17:01 | PD.IMPROG ---
Documentation for date of: 06/06/24 Subjective Subjective Interval history: Surgical consult appreciated Lap versus open Marianne tomorrow Nausea vomiting improved with promethazine and Reglan patient also on amitriptyline and Megace Exam Vital Signs Temp Pulse Resp BP Pulse Ox O2 Del Method 98 F 99 18 122/80 98 Room Air 06/06/24 15:58 06/06/24 15:58 06/06/24 15:58 06/06/24 15:58 06/06/24 15:58 06/06/24 15:58 Constitutional Comments: Alert oriented Routine Respiratory Exam Comments: Normal to auscultation Objective Labs 06/06/24 04:50 06/06/24 04:50 Labs: Laboratory Results - last 24 hr 05/29/24 06/06/24 16:50 04:50 WBC 5.4 RBC 2.48 L Hgb 7.6 L Hct 23.3 L MCV 94 MCH 30.2 MCHC 32.2 RDW Std Deviation 69.9 H Plt Count 269 D Neut % (Auto) 53 Lymph % (Auto) 26 [place] % (Auto) 13 H Eos % (Auto) 7 Baso % (Auto) 1 Neut # (Auto) 2.9 Lymph # (Auto) 1.4 [place] # (Auto) 0.7 Eos # (Auto) 0.4 Baso # (Auto) 0.1 Immature Gran # (Auto) 0.03 H Absolute Nucleated RBC 0.00 Immature Gran % 1 H Nucleated RBC % 0 Sodium 141 Potassium 3.3 L Chloride 111 H Carbon Dioxide 20.7 Anion Gap 9 BUN 5 L Creatinine 0.7 Estim Creat Clear Calc 99.8 eGFR > 60 BUN/Creatinine Ratio 7 L Glucose 107 H Calculated Osmolality 278 Calcium 8.7 Corrected Calcium 9.2 Phosphorus 3.9 Magnesium 1.9 Total Bilirubin 0.3 AST 19 ALT 12 Alkaline Phosphatase 43 L Total Protein 5.7 Albumin 3.4 L Globulin 2.3 Albumin/Globulin Ratio 1.5 Stl Giardia Antigen NOT DETECTED Stl O & P Trichrome St O & P Concentrate Exam Impressions Impression: # Biliary dyskinesia # Nausea vomiting Continue current management ABG Interpretation ABG results: 05/14/24 05/15/24 17:25 16:48 VBG pH 7.49 7.39 VBG pCO2 21 L 28 L VBG pO2 35 43 VBG Base Excess -5 L -7 L Assessment & Plan A&P Narrative mild anemia presumptive gastroparesis with controlled dm dermoid tumor hypothyroid htn hld possible epidural abscess with neg cx on empiric vanco/zosyn ideally, this is drained or pt is referred for such so that if the referral is denied, please document any rationale for no intervention so we all can know why that is the case ok to change zosyn to rocephin and vanco to po doxy and see if other meds can be changed to po too. if empiric rx is to be the goal, then use agents that are supported by micro or are easy to use. she likely needs dermoid addressed at some point as well. will not see again unless requested as inpt current abx are more toxic and require more daily doses then alternative empiric rx. favor rocephin 2 gm iv daily and po doxy 100 bid thru 07/09 with weekly cbc, renal panel, esr and line removal at end of rx if process remains, please re visit drainage at end of iv run and extend abx will see prn. f/u with dr Reardon on the tpn. I generally do not provide that rx. Time Spent With Patient Time: Total time spent is greater than 50% in coordination of care (as documented) at patient's floor/unit and/or counseling patient:
--- NOTE | 2024-06-06 17:45 | PC.PT ---
Patient will be dc from PT services secondary to patient is I with transfers and ambulation with walker.
[2024-06-06] MEDS: AMITRIPTYLINE HCL 25 MG TABLET PO (22:00)
[2024-06-06] MEDS: MEGESTROL ACET SUSP 400 MG/10 ML UDC PO (22:00)
--- NOTE | 2024-06-06 23:40 | PD.VPROG1 ---
Telemedicine visit statement This visit was conducted with the use of phone was obtained on 06/06/24 at 2340. Documentation for date of: 06/06/24 Subjective Subjective Interval history: Patient is in MedSurg. Still with pain in the lower back and right lower extremity. She is tolerating oral diet better, needing to take pain meds every 6 hours. Virtual exam Vital Signs Temp Pulse Resp BP Pulse Ox O2 Del Method 97.9 F 99 18 128/87 H 98 Room Air 06/06/24 20:00 06/06/24 20:00 06/06/24 20:00 06/06/24 20:00 06/06/24 20:00 06/06/24 20:00 Objective Labs 06/06/24 04:50 06/06/24 04:50 Labs: Laboratory Results - last 24 hr 05/29/24 06/06/24 16:50 04:50 WBC 5.4 RBC 2.48 L Hgb 7.6 L Hct 23.3 L MCV 94 MCH 30.2 MCHC 32.2 RDW Std Deviation 69.9 H Plt Count 269 D Neut % (Auto) 53 Lymph % (Auto) 26 [place] % (Auto) 13 H Eos % (Auto) 7 Baso % (Auto) 1 Neut # (Auto) 2.9 Lymph # (Auto) 1.4 [place] # (Auto) 0.7 Eos # (Auto) 0.4 Baso # (Auto) 0.1 Immature Gran # (Auto) 0.03 H Absolute Nucleated RBC 0.00 Immature Gran % 1 H Nucleated RBC % 0 Sodium 141 Potassium 3.3 L Chloride 111 H Carbon Dioxide 20.7 Anion Gap 9 BUN 5 L Creatinine 0.7 Estim Creat Clear Calc 99.8 eGFR > 60 BUN/Creatinine Ratio 7 L Glucose 107 H Calculated Osmolality 278 Calcium 8.7 Corrected Calcium 9.2 Phosphorus 3.9 Magnesium 1.9 Total Bilirubin 0.3 AST 19 ALT 12 Alkaline Phosphatase 43 L Total Protein 5.7 Albumin 3.4 L Globulin 2.3 Albumin/Globulin Ratio 1.5 Stl Giardia Antigen NOT DETECTED Stl O & P Trichrome St O & P Concentrate Exam ABG Interpretation ABG results: 05/14/24 05/15/24 17:25 16:48 VBG pH 7.49 7.39 VBG pCO2 21 L 28 L VBG pO2 35 43 VBG Base Excess -5 L -7 L Assessment & Plan Problem List (1) Lumbar disc disease: Status: Acute Assessment and plan: Discitis: Continue with IV antibiotics until Jun as per ID's recommendation. Assessment 1) Intractable nausea and vomiting: resolved. MRI brain did not show any significant white matter changes, not consistent with demyelinating disease. MRI of the C-spine and T-spine: Did not show any evidence of demyelination as seen in neuromyelitis optica spectrum disorder. (2) Diabetes mellitus type 2, insulin dependent: Continue to check fingerstick glucose and follow sliding scale insulin per protocol
[2024-06-07] VITALS (9 sets, daily range): BP systolic 119–146; BP diastolic 68–83; PULSE 90–101; RESP 17–18; TEMP 36.1–36.3; O2SAT 97–99
[2024-06-07] MEDS: METOCLOPRAMIDE 5 MG TABLET PO ×4 (05:32→23:50)
[2024-06-07] MEDS: PROMETHAZINE HCL 25 MG TABLET PO ×4 (05:32→23:50)
[2024-06-07 06:14] LABS: Cortisol,total,LC/MS/MS* 2.6 mcg/dL
[2024-06-07 07:18] LABS: Alanine Aminotransferase 15 U/L (10-49); Albumin, Serum 3.3 gm/dL (3.5-5.0); Albumin/Globulin Ratio 1.4 (1.2-2.2); Alkaline Phosphatase 39 U/L (46-116); Anion Gap 8 (7-16); Aspartate Amino Transferase 29 U/L (0-34); BUN/Creatinine Ratio 9 Ratio (12-20); Bilirubin,Total 0.3 mg/dL (0.3-1.2); Blood Urea Nitrogen 8 mg/dL (9-23); Calcium 8.7 mg/dL (8.3-10.6); Calcium (Corrected) 9.3 mg/dL (8.5-10.1); Carbon Dioxide 20.6 mMol/L (20.0-31.0); Chloride 111 mMol/L (98-107); Creatinine (Component) 0.9 mg/dL (0.6-1.3); Estimated Creatinine Clearance 77.6 mL/min (>60); Globulin 2.3 gm/dL (2.3-3.5); Glucose 105 mg/dL (74-106); Magnesium 1.8 mg/dL (1.6-2.6); Osmolality,Calculated 277 (275-295); Phosphorous 3.5 mg/dL (2.4-5.1); Potassium 3.4 mMol/L (3.4-5.1); Sodium 140 mMol/L (136-145); Total Protein 5.6 gm/dL (5.7-8.2); eGFR > 60 See Note
[2024-06-07 07:20] LABS: Basophils # (Auto) 0.1 Thou/mm3 (0.0-0.2); Basophils % (Auto) 1 % (0-2.5); Eosinophils # (Auto) 0.4 Thou/mm3 (0.0-0.5); Eosinophils % (Auto) 6 % (0-10); Hematocrit 23.9 % (36.0-46.0); Immature Granulocytes % (Auto) 1 % (0-0); Immature Granulocytes Auto 0.03 Thou/mm3 (0.00-0.00); Lymphocytes # (Auto) 1.4 Thou/mm3 (1.0-4.8); Lymphocytes % (Auto) 24 % (10-50); Mean Corpuscular HGB Conc 31.4 g/dl (31.0-37.0); Mean Corpuscular Hemoglobin 30.2 pg (25.0-35.0); Mean Corpuscular Volume 96 fL (80-100); Monocytes # (Auto) 0.9 Thou/mm3 (0.0-0.8); Monocytes % (Auto) 14 % (0-12); Neutrophils # (Auto) 3.3 Thou/mm3 (1.8-7.7); Neutrophils % (Auto) 55 % (37-80); Nucleated Red Blood Cell % 0 /100 WBC (0); Platelet Count 353 Thou/mm3 (140-440); RDW Standard Deviation 71.3 fL (36.4-46.3); Red Blood Count 2.48 Miln/mm3 (4.00-5.20)
[2024-06-07 07:28] LABS: Hemoglobin 7.5 g/dL (12.0-16.0)
--- NOTE | 2024-06-07 08:25 | PC.NURSE ---
called [facility] for report for picc line insertion, current picc line working, procedure cancelled by
[2024-06-07] MEDS: MULTIVITAMINS TABLET 1 TAB PO (08:42)
[2024-06-07] MEDS: HYDROcodone/APAP 5/325 TABLET 1 TAB PO ×2 (08:42→21:03)
[2024-06-07] MEDS: LEVOTHYROXINE INJ 100 mCg VIAL 50 MCG IV (08:43)
[2024-06-07] MEDS: SODIUM CHLORIDE 0.9% INJ 10 ML VIAL 2.5 ML IV (08:43)
--- NOTE | 2024-06-07 09:04 | PC.SS ---
Follow up note: Surgery today for gallbladder removal. Waiting for I.D recommendations for the IV antibiotics. Insurance authorization is required once IV antibiotic has been confirmed. PASRR assessment requires to be completed again.
--- NOTE | 2024-06-07 09:34 | ESPR_ITS ---
<Statement entered by Иван Boland MD - 06/07/24 16:05> Patient was seen and examined at bedside. Patient denied any overnight symptoms. Patient was n.p.o. today for the possible cholecystostomy by Dr Davis however Dr Davis schedule was busy today and he was not able to keep the patient on the schedule for surgery today. For that reason patient surgery was postponed till tomorrow. Patient understand that the surgery again may not resolve her symptoms however she understand and agree. For her PICC line it is not occluded anymore for that reason we did not need to place another PICC line. Will resume the patient diet today Patient reported that he she has strong appetite. Her potassium is today normal with no supplements. Regarding her epidural abscess I spoke with Dr Mcdaniels today regarding switching her vancomycin to p.o. medication because of the limited options of the longterm facility that can do both IV antibiotics at the same time. He agreed to continue the patient on Rocephin 2 g IV daily at switch her vancomycin to co- trimoxazole double strength 1 pill twice daily for the same. Until 09 July 2024. drug abuse social worker was updated. Her blood sugar under control with no need for adjustment of her insulin sliding scale. - Patient's plan and care discussed with my attending, Dr. Freddie Boland MD Internal Medicine PGY-2 Documentation for date of: 06/07/24 Subjective Subjective Interval history: Pt examined at bedside today. No acute overnight events. Pt is agreeable to getting Cholecystectomy today. He is wondering when she is going to get her procedure done. Is hungry and thirsty at this time, and is saying if she is not going to surgery, is requesting to eat. Has not felt nauseous, has not vomited. No other complaints at this time. Exam Vital Signs Temp Pulse Resp BP Pulse Ox O2 Del Method 97.4 F 94 17 119/68 98 Room Air 06/07/24 07:51 06/07/24 07:51 06/07/24 07:51 06/07/24 07:51 06/07/24 07:51 06/07/24 07:51 Narrative Exam General: AAOx3, NAD, looks stronger and more awake with energy HEENT: Moist mucous membranes, conjunctiva clear, EOMI, PERRLA, Cardiovascular: S1, S2, radial pulses +2 bilat, RRR Pulmonary: CTAB bilat no cough, no wheezing GI: tenderness to light palpitation in both RUQ and LUQ, + rebound tenderness, no guarding, or distension, bowel sounds are present Extremities: No presence of trace or pitting edema in lower extremities bilaterally, dorsalis pedis pulses +2 bilaterally, L upper hand in site of IV erythematous and TTP Neuro: AAOx3, resting tremor in UE bilat Psych: Good judgement, thought and behavior. Cooperative Objective Labs 06/08/24 05:25 06/08/24 05:25 Labs: Laboratory Results - last 24 hr 05/23/24 06/07/24 04:55 04:39 WBC 6.0 RBC 2.48 L Hgb 7.5 L Hct 23.9 L MCV 96 MCH 30.2 MCHC 31.4 RDW Std Deviation 71.3 H Plt Count 353 D Neut % (Auto) 55 Lymph % (Auto) 24 [place] % (Auto) 14 H Eos % (Auto) 6 Baso % (Auto) 1 Neut # (Auto) 3.3 Lymph # (Auto) 1.4 [place] # (Auto) 0.9 H Eos # (Auto) 0.4 Baso # (Auto) 0.1 Immature Gran # (Auto) 0.03 H Absolute Nucleated RBC 0.00 Immature Gran % 1 H Nucleated RBC % 0 Sodium 140 Potassium 3.4 Chloride 111 H Carbon Dioxide 20.6 Anion Gap 8 BUN 8 L Creatinine 0.9 Estim Creat Clear Calc 77.6 eGFR > 60 BUN/Creatinine Ratio 9 L Glucose 105 Calculated Osmolality 277 Calcium 8.7 Corrected Calcium 9.3 Phosphorus 3.5 Magnesium 1.8 Total Bilirubin 0.3 AST 29 ALT 15 Alkaline Phosphatase 39 L Total Protein 5.6 L Albumin 3.3 L Globulin 2.3 Albumin/Globulin Ratio 1.4 Total Cortisol 2.6 ABG Interpretation ABG results: 05/14/24 05/15/24 17:25 16:48 VBG pH 7.49 7.39 VBG pCO2 21 L 28 L VBG pO2 35 43 VBG Base Excess -5 L -7 L Quality Measures Quality Measures VTE prophylaxis (Heparin ) Assessment & Plan Assessment Current Active Medications: Generic Name Dose Route Start Last Admin Trade Name Freq PRN Reason Stop Dose Admin Acetaminophen 650 mg 05/15/24 18:27 05/31/24 14:37 Acetaminophen 325 Mg Tablet PO 06/14/24 18:26 650 mg Q4HR PRN Administration Fever >101 or pain 1-3 Hydrocodone Bitart/Acetaminophen 1 tab 06/05/24 19:59 06/07/24 08:42 Hydrocodone/Apap 5/325 Tablet PO 06/10/24 19:58 1 tab Q6HR PRN Administration PAIN SCALE 4-10(Mod-Sev Amitriptyline HCl 25 mg 06/01/24 21:00 06/06/24 22:00 Amitriptyline Hcl 25 Mg Tablet PO 07/01/24 20:59 25 mg HS MEGAN Administration Dextrose 25 ml 06/04/24 20:00 Dextrose 50%-Water Inj 50 Ml Syringe IV 07/04/24 19:59 Q15MIN PRN BG 50-70 responsive npo pt Dextrose 50 ml 06/04/24 20:00 Dextrose 50%-Water Inj 50 Ml Syringe IV 07/04/24 19:59 Q15MIN PRN BG <50 OR BG <70 & pt unresponsive Glucagon 1 mg 06/04/24 20:00 Glucagon Inj 1 Mg Vial IM Q15MIN PRN BG <70, and no IV access Vancomycin HCl 1,500 mg/ 500 mls @ 200 mls/hr 06/06/24 10:00 06/06/24 16:46 Sodium Chloride IV 06/13/24 09:59 200 mls/hr QDAY@1000 MEGAN Administration Protocol Potassium Chloride 20 meq in 100 mls @ 50 mls/hr 06/07/24 08:15 Kcl Ivpb IV 06/07/24 12:14 Q2H MEGAN Insulin Human Lispro 0 unit 06/04/24 21:00 06/07/24 07:49 Insulin Lispro (Admelog) 1 Unit/0.01 Ml Unit SC 07/04/24 20:59 Not Given ACHS MEGAN Protocol Levothyroxine Sodium 50 mcg 05/31/24 09:00 06/07/24 08:43 Levothyroxine Inj 100 Mcg Vial IV 06/30/24 08:59 50 mcg QDAY MEGAN Administration Lidocaine 1 patch 05/21/24 09:21 05/31/24 21:07 Lidocaine 5% 1 Patch TOP 06/20/24 09:20 1 patch UD PRN Administration PAIN Protocol Megestrol Acetate 400 mg 05/31/24 09:15 06/07/24 08:43 Megestrol Acet Susp 400 Mg/10 Ml Udc PO 06/30/24 09:14 Not Given BID MEGAN Metoclopramide HCl 5 mg 06/05/24 18:00 06/07/24 05:32 Metoclopramide 5 Mg Tablet PO 07/05/24 17:59 5 mg Q6HR MEGAN Administration Multivitamins 1 tab 06/03/24 11:30 06/07/24 08:42 Multivitamins Tablet PO 07/03/24 11:29 1 tab QDAY MEGAN Administration Ondansetron HCl 4 mg 06/05/24 13:45 Ondansetron Odt 4 Mg Tabrap PO 07/05/24 13:44 Q6HR PRN NAUSEA OR VOMITING Protocol Pharmacy Consult 1 each 05/22/24 09:00 Vancomycin Pharmacy To Dose 1 Each Each IV 06/21/24 08:59 QDAY PRN CONSULT Promethazine HCl 25 mg 05/31/24 13:15 06/07/24 05:32 Promethazine Hcl 25 Mg Tablet PO 06/30/24 13:14 25 mg Q6HR MEGAN Administration Simethicone 80 mg 05/26/24 11:42 Simethicone 80 Mg Chew PO 06/25/24 11:41 QID PRN GAS Sodium Chloride 2.5 ml 06/04/24 09:00 06/07/24 08:43 Sodium Chloride 0.9% Inj 10 Ml Vial IV 07/04/24 08:59 2.5 ml DAILY MEGAN Administration Plan 59-year-old female with a past medical history of hypertension, diabetes, hypothyroidism and hyperlipidemia who presented to the ED on 05/14/2024 with abdominal pain, nausea and vomiting that has persisted over the last 2 months. The patient has been admitted for management of intractable nausea and vomiting, starvation ketosis. Patient on imaging was found to have spinal epidural abscess with multiple attempts to transfer the patient to a nursing care various institutions infiltrative patient and recommend conservative management. #Intractable nausea and vomiting #? Biliary dyskinesia #? Cyclic vomiting syndrome HIDA shows reduced EJ ~23% Will transition to oral antiemetics at this time as pt is improving Pt to get cholecystectomy today, unsure what time. Unsure if cholecystectomy will resolve patient's symptoms, however patient would like to try and as recommended by general surgery Pt to get surgery tomorrow Pt's symptoms and oral intake greatly improved with amtriypline and megace Plan: -Zofran PO as needed -Reglan 5 mg PO every 6 hours ?Promethazine 25 mg p.o. every 6 hours -Encourage p.o. intake as tolerated, Megace added by nephrology ?Continue amitriptyline, and megace -Neurology on case appreciate recommendations -GI on the case appreciate recommendations ?General Surgery on consult, appreciate recs ?NPO after midnight #Epidural abscess #Osteomyelitis/discitis With no urinary or bladder incontinence Found on lumbar MRI ID recommends 2 g daily Rocephin and doxycycline, however patient cannot take doxycycline as she already has GI upset Will eventually adjust rocephin 2g daily once pt is d/c to SNF Spoke with ID, they recommend Bactrim BID po upon d/c for alternative for doxycycline Last abx date 07/09/2023 to complete 6 weeks During hospitalization, pt requires IV Rocephin 2g BID Plan: -Will switch from vancomycin to oral Bactrim BID upon discharge, and continue Rocephin 2g IV once a day upon discharge to SNF -ID consulted, appreciate recommendations -Continue to pursue transfer #Metabolic acidosis, improving Current bicarb ~21 Plan: ?Nephrology on consult, appreciate recs #Electrolyte abnormalities #Hypokalemia secondary to #GI losses #Diarrhea, improving C diff negative Plan: ?Replete as needed ?Treat as above with antiemetics ?As above #Type 2 diabetes mellitus A1c 6.8 -on insulin sliding scale #Hypothyroidism Patient noted to have TSH of 75 however T4 at 0.76 ?On 50 Synthroid IV, will transition to PO after surgery #[facility]: Hep[facility] GI prophylaxis: Simethicone Diet: Carb consistent, NPO after midnight CODE STATUS: Full Patient seen and care discussed with my senior resident, Dr. Boland, and my attending physician, Dr. Freddie Solorio, PGY-1 Attending Provider Attestation/Addendum I have examined the patient, reviewed labs and imaging findings, discussed the case with the resident(s), and reviewed entered orders. I agree with the plan of care as outlined in this note, with these additional summaries/recommendations: Patient seen at bedside. No acute overnight events. Patient will go for cholecystectomy tomorrow with general surgery for biliary dyskinesia. N.p.o. after midnight morning labs with coagulation panel. Patient is aware that cholecystectomy may not resolve her intractable nausea and vomiting although this is significantly improved. Potassium continues to improve. Continue IV antibiotics for epidural abscess/osteomyelitis. Repeat hematology and chemistry panel in AM. Dr. Frazier
[2024-06-07] MEDS: MEGESTROL ACET SUSP 400 MG/10 ML UDC PO ×2 (10:00→20:53)
[2024-06-07] MEDS: POTASSIUM CHL 20 mEq IVPB 20 MEQ/100 ML BAG 50 MEQ IV ×2 (10:00→11:46)
[2024-06-07] MEDS: Vancomycin Inj 1,500 MG in SODIUM CHLORIDE 0.9% 500 ML 500 ML 200 MG IV (10:01)
[2024-06-07] MEDS: INSULIN LISPRO (AdmeLOG) 1 UNIT/0.01 ML UNIT SC (11:46)
--- NOTE | 2024-06-07 13:53 | PC.SS ---
Addendum entered by Aminah Rodrigues 06/07/24 15:34: SS spoke to Jakob from [facility] who states new PASRR requires to be completed on 06-09-24. Original Note: SS met with Resident PhysicianKya to confirm antibiotic is now switched from vancomyci n to oral Co-trimoxazol PO DS BID , and continue Rocephin 2g IV BID. SS has sent updated information to [facility] using [employer] for insurance authorization. SS met with pt who is requesting STC.
--- NOTE | 2024-06-07 18:19 | PD.IMPROG ---
Documentation for date of: 06/07/24 Subjective Subjective Interval history: lap versus open cholecystectomy scheduled for tomorrow No nausea vomiting Exam Vital Signs Temp Pulse Resp BP Pulse Ox O2 Del Method 97.1 F 96 18 127/71 99 Room Air 06/07/24 16:00 06/07/24 16:00 06/07/24 16:00 06/07/24 16:00 06/07/24 16:00 06/07/24 16:00 Objective Labs 06/07/24 04:39 06/07/24 04:39 Labs: Laboratory Results - last 24 hr 05/23/24 06/07/24 04:55 04:39 WBC 6.0 RBC 2.48 L Hgb 7.5 L Hct 23.9 L MCV 96 MCH 30.2 MCHC 31.4 RDW Std Deviation 71.3 H Plt Count 353 D Neut % (Auto) 55 Lymph % (Auto) 24 [place] % (Auto) 14 H Eos % (Auto) 6 Baso % (Auto) 1 Neut # (Auto) 3.3 Lymph # (Auto) 1.4 [place] # (Auto) 0.9 H Eos # (Auto) 0.4 Baso # (Auto) 0.1 Immature Gran # (Auto) 0.03 H Absolute Nucleated RBC 0.00 Immature Gran % 1 H Nucleated RBC % 0 Sodium 140 Potassium 3.4 Chloride 111 H Carbon Dioxide 20.6 Anion Gap 8 BUN 8 L Creatinine 0.9 Estim Creat Clear Calc 77.6 eGFR > 60 BUN/Creatinine Ratio 9 L Glucose 105 Calculated Osmolality 277 Calcium 8.7 Corrected Calcium 9.3 Phosphorus 3.5 Magnesium 1.8 Total Bilirubin 0.3 AST 29 ALT 15 Alkaline Phosphatase 39 L Total Protein 5.6 L Albumin 3.3 L Globulin 2.3 Albumin/Globulin Ratio 1.4 Total Cortisol 2.6 Impressions Impression: # Nausea vomiting improving # bili dyskinesia Surgery on board for possible lap floresita tomorrow ABG Interpretation ABG results: 05/14/24 05/15/24 17:25 16:48 VBG pH 7.49 7.39 VBG pCO2 21 L 28 L VBG pO2 35 43 VBG Base Excess -5 L -7 L Assessment & Plan A&P Narrative mild anemia presumptive gastroparesis with controlled dm dermoid tumor hypothyroid htn hld possible epidural abscess with neg cx on empiric vanco/zosyn ideally, this is drained or pt is referred for such so that if the referral is denied, please document any rationale for no intervention so we all can know why that is the case ok to change zosyn to rocephin and vanco to po doxy and see if other meds can be changed to po too. if empiric rx is to be the goal, then use agents that are supported by micro or are easy to use. she likely needs dermoid addressed at some point as well. will not see again unless requested as inpt current abx are more toxic and require more daily doses then alternative empiric rx. favor rocephin 2 gm iv daily and po doxy 100 bid thru 07/09 with weekly cbc, renal panel, esr and line removal at end of rx if process remains, please re visit drainage at end of iv run and extend abx will see prn. f/u with dr Reardon on the tpn. I generally do not provide that rx. Time Spent With Patient Time: Total time spent is greater than 50% in coordination of care (as documented) at patient's floor/unit and/or counseling patient:
--- NOTE | 2024-06-07 18:48 | ESPR_ITS ---
Documentation for date of: 06/07/24 Subjective Subjective Interval history: Noovernight events, patient walking with walker, tolerating well food Exam Vital Signs Temp Pulse Resp BP Pulse Ox O2 Del Method 97.1 F 96 18 127/71 99 Room Air 06/07/24 16:00 06/07/24 16:00 06/07/24 16:00 06/07/24 16:00 06/07/24 16:00 06/07/24 16:00 Narrative Exam GEN: AOx3, able to speak full sentences HEENT: NC/AC, PERRLA, oral mucosa moist, neck supple CVS: RRR, S1-S2 present, no murmurs appreciated RESP: CTAB GI: Laparoscopic scars newly dressed, soft,non distended, mildly tender, NBS MSK: able to move all 4 limbs, no lower extremity edema SKIN: warm and dry HEATING TECHNICIAN: CN II-XII and Sensation grossly intact. Objective Labs 06/08/24 05:25 06/08/24 05:25 Labs: Laboratory Results - last 24 hr 05/23/24 06/07/24 04:55 04:39 WBC 6.0 RBC 2.48 L Hgb 7.5 L Hct 23.9 L MCV 96 MCH 30.2 MCHC 31.4 RDW Std Deviation 71.3 H Plt Count 353 D Neut % (Auto) 55 Lymph % (Auto) 24 [place] % (Auto) 14 H Eos % (Auto) 6 Baso % (Auto) 1 Neut # (Auto) 3.3 Lymph # (Auto) 1.4 [place] # (Auto) 0.9 H Eos # (Auto) 0.4 Baso # (Auto) 0.1 Immature Gran # (Auto) 0.03 H Absolute Nucleated RBC 0.00 Immature Gran % 1 H Nucleated RBC % 0 Sodium 140 Potassium 3.4 Chloride 111 H Carbon Dioxide 20.6 Anion Gap 8 BUN 8 L Creatinine 0.9 Estim Creat Clear Calc 77.6 eGFR > 60 BUN/Creatinine Ratio 9 L Glucose 105 Calculated Osmolality 277 Calcium 8.7 Corrected Calcium 9.3 Phosphorus 3.5 Magnesium 1.8 Total Bilirubin 0.3 AST 29 ALT 15 Alkaline Phosphatase 39 L Total Protein 5.6 L Albumin 3.3 L Globulin 2.3 Albumin/Globulin Ratio 1.4 Total Cortisol 2.6 ABG Interpretation ABG results: 05/14/24 05/15/24 17:25 16:48 VBG pH 7.49 7.39 VBG pCO2 21 L 28 L VBG pO2 35 43 VBG Base Excess -5 L -7 L Quality Measures Quality Measures VTE prophylaxis (Heparin ) Assessment & Plan Assessment Current Active Medications: Generic Name Dose Route Start Last Admin Trade Name Freq PRN Reason Stop Dose Admin Acetaminophen 650 mg 05/15/24 18:27 05/31/24 14:37 Acetaminophen 325 Mg Tablet PO 06/14/24 18:26 650 mg Q4HR PRN Administration Fever >101 or pain 1-3 Hydrocodone Bitart/Acetaminophen 1 tab 06/05/24 19:59 06/07/24 08:42 Hydrocodone/Apap 5/325 Tablet PO 06/10/24 19:58 1 tab Q6HR PRN Administration PAIN SCALE 4-10(Mod-Sev Amitriptyline HCl 25 mg 06/01/24 21:00 06/06/24 22:00 Amitriptyline Hcl 25 Mg Tablet PO 07/01/24 20:59 25 mg HS MEGAN Administration Dextrose 25 ml 06/04/24 20:00 Dextrose 50%-Water Inj 50 Ml Syringe IV 07/04/24 19:59 Q15MIN PRN BG 50-70 responsive npo pt Dextrose 50 ml 06/04/24 20:00 Dextrose 50%-Water Inj 50 Ml Syringe IV 07/04/24 19:59 Q15MIN PRN BG <50 OR BG <70 & pt unresponsive Glucagon 1 mg 06/04/24 20:00 Glucagon Inj 1 Mg Vial IM Q15MIN PRN BG <70, and no IV access Vancomycin HCl 1,500 mg/ 500 mls @ 200 mls/hr 06/06/24 10:00 06/07/24 10:01 Sodium Chloride IV 06/13/24 09:59 200 mls/hr QDAY@1000 MEGAN Administration Protocol Insulin Human Lispro 0 unit 06/04/24 21:00 06/07/24 17:40 Insulin Lispro (Admelog) 1 Unit/0.01 Ml Unit SC 07/04/24 20:59 Not Given ACHS MEGAN Protocol Levothyroxine Sodium 50 mcg 05/31/24 09:00 06/07/24 08:43 Levothyroxine Inj 100 Mcg Vial IV 06/30/24 08:59 50 mcg QDAY MEGAN Administration Lidocaine 1 patch 05/21/24 09:21 05/31/24 21:07 Lidocaine 5% 1 Patch TOP 06/20/24 09:20 1 patch UD PRN Administration PAIN Protocol Megestrol Acetate 400 mg 05/31/24 09:15 06/07/24 10:00 Megestrol Acet Susp 400 Mg/10 Ml Udc PO 06/30/24 09:14 400 mg BID MEGAN Administration Metoclopramide HCl 5 mg 06/05/24 18:00 06/07/24 17:40 Metoclopramide 5 Mg Tablet PO 07/05/24 17:59 5 mg Q6HR MEGAN Administration Multivitamins 1 tab 06/03/24 11:30 06/07/24 08:42 Multivitamins Tablet PO 07/03/24 11:29 1 tab QDAY MEGAN Administration Ondansetron HCl 4 mg 06/05/24 13:45 Ondansetron Odt 4 Mg Tabrap PO 07/05/24 13:44 Q6HR PRN NAUSEA OR VOMITING Protocol Pharmacy Consult 1 each 05/22/24 09:00 Vancomycin Pharmacy To Dose 1 Each Each IV 06/21/24 08:59 QDAY PRN CONSULT Promethazine HCl 25 mg 05/31/24 13:15 06/07/24 17:40 Promethazine Hcl 25 Mg Tablet PO 06/30/24 13:14 25 mg Q6HR MEGAN Administration Simethicone 80 mg 05/26/24 11:42 Simethicone 80 Mg Chew PO 06/25/24 11:41 QID PRN GAS Sodium Chloride 2.5 ml 06/04/24 09:00 06/07/24 08:43 Sodium Chloride 0.9% Inj 10 Ml Vial IV 07/04/24 08:59 2.5 ml DAILY MEGAN Administration Plan #Epidural abscess #Osteomyelitis/discitis #Intractable nausea and vomiting: resolved. MRI brain did not show any significant white matter changes, not consistent with demyelinating disease. MRI of the C-spine and T-spine: Did not show any evidence of demyelination as seen in neuromyelitis optica spectrum disorder. Abx asper ID specialist Patient's care discussed with attending physician, Dr David Schafer MD PGY3 Attending Provider Attestation/Addendum Patient was seen and examined at the bedside, agreed with resident's findings, assessment and mgt.
[2024-06-07] MEDS: AMITRIPTYLINE HCL 25 MG TABLET PO (20:53)
[2024-06-08] VITALS (14 sets, daily range): BP systolic 114–154; BP diastolic 68–97; PULSE 89–108; RESP 15–20; TEMP 36.1–36.9; O2SAT 96–100; BMI 35.3; BMI 32.1
[2024-06-08] MEDS: METOCLOPRAMIDE 5 MG TABLET PO ×3 (05:39→17:35)
[2024-06-08] MEDS: PROMETHAZINE HCL 25 MG TABLET PO ×3 (05:39→17:35)
[2024-06-08 05:51] LABS: Basophils # (Auto) 0.1 Thou/mm3 (0.0-0.2); Basophils % (Auto) 1 % (0-2.5); Eosinophils # (Auto) 0.3 Thou/mm3 (0.0-0.5); Eosinophils % (Auto) 5 % (0-10); Hematocrit 24.9 % (36.0-46.0); Immature Granulocytes % (Auto) 1 % (0-0); Immature Granulocytes Auto 0.05 Thou/mm3 (0.00-0.00); Lymphocytes # (Auto) 1.7 Thou/mm3 (1.0-4.8); Lymphocytes % (Auto) 25 % (10-50); Mean Corpuscular HGB Conc 32.1 g/dl (31.0-37.0); Mean Corpuscular Hemoglobin 30.5 pg (25.0-35.0); Mean Corpuscular Volume 95 fL (80-100); Monocytes # (Auto) 0.9 Thou/mm3 (0.0-0.8); Monocytes % (Auto) 13 % (0-12); Neutrophils # (Auto) 3.7 Thou/mm3 (1.8-7.7); Neutrophils % (Auto) 55 % (37-80); Nucleated Red Blood Cell % 0 /100 WBC (0); Platelet Count 338 Thou/mm3 (140-440); Red Blood Count 2.62 Miln/mm3 (4.00-5.20); White Blood Count 6.7 Thou/mm3 (3.6-11.0)
[2024-06-08 05:58] LABS: INR 1.1 (0.9-1.3); Partial Thromboplastin Time 22.1 Seconds (22.0-36.0); Prothrombin Time 12.1 Seconds (9.0-12.2)
[2024-06-08 06:07] LABS: Alanine Aminotransferase 17 U/L (10-49); Albumin, Serum 3.5 gm/dL (3.5-5.0); Albumin/Globulin Ratio 1.5 (1.2-2.2); Alkaline Phosphatase 35 U/L (46-116); Anion Gap 10 (7-16); Aspartate Amino Transferase 28 U/L (0-34); BUN/Creatinine Ratio 9 Ratio (12-20); Bilirubin,Total 0.4 mg/dL (0.3-1.2); Blood Urea Nitrogen 6 mg/dL (9-23); Calcium (Corrected) 9.3 mg/dL (8.5-10.1); Carbon Dioxide 19.5 mMol/L (20.0-31.0); Chloride 112 mMol/L (98-107); Creatinine (Component) 0.7 mg/dL (0.6-1.3); Estimated Creatinine Clearance 99.8 mL/min (>60); Globulin 2.3 gm/dL (2.3-3.5); Glucose 104 mg/dL (74-106); Magnesium 1.8 mg/dL (1.6-2.6); Osmolality,Calculated 278 (275-295); Potassium 3.3 mMol/L (3.4-5.1); Sodium 141 mMol/L (136-145); Total Protein 5.8 gm/dL (5.7-8.2); eGFR > 60 See Note
[2024-06-08 07:33] LABS: Calcium 8.9 mg/dL (8.3-10.6)
[2024-06-08] MEDS: SODIUM CHLORIDE 0.9% INJ 10 ML VIAL 2.5 ML IV (08:10)
[2024-06-08] MEDS: LEVOTHYROXINE INJ 100 mCg VIAL 50 MCG IV (08:10)
[2024-06-08 10:23] LABS: Vancomycin,Trough 13.9 mcg/mL (5.0-10.0)
--- NOTE | 2024-06-08 10:58 | PD.IMPROG ---
Documentation for date of: 06/08/24 Subjective Subjective Interval history: Patient is scheduled for laparoscopic versus open cholecystectomy today for biliary dyskinesia and persistent nausea vomiting Exam Vital Signs Temp Pulse Resp BP Pulse Ox O2 Del Method 97.7 F 98 18 141/86 H 97 Room Air 06/08/24 07:36 06/08/24 07:36 06/08/24 07:36 06/08/24 07:36 06/08/24 07:36 06/08/24 07:36 Objective Labs 06/09/24 04:45 06/09/24 04:45 Labs: Laboratory Results - last 24 hr 06/08/24 06/08/24 05:25 09:02 WBC 6.7 RBC 2.62 L Hgb 8.0 L Hct 24.9 L MCV 95 MCH 30.5 MCHC 32.1 RDW Std Deviation 69.0 H Plt Count 338 Neut % (Auto) 55 Lymph % (Auto) 25 [place] % (Auto) 13 H Eos % (Auto) 5 Baso % (Auto) 1 Neut # (Auto) 3.7 Lymph # (Auto) 1.7 [place] # (Auto) 0.9 H Eos # (Auto) 0.3 Baso # (Auto) 0.1 Immature Gran # (Auto) 0.05 H Absolute Nucleated RBC 0.00 Immature Gran % 1 H Nucleated RBC % 0 PT 12.1 INR 1.1 APTT 22.1 Sodium 141 Potassium 3.3 L Chloride 112 H Carbon Dioxide 19.5 L Anion Gap 10 BUN 6 L Creatinine 0.7 Estim Creat Clear Calc 99.8 eGFR > 60 BUN/Creatinine Ratio 9 L Glucose 104 Calculated Osmolality 278 Calcium 8.9 Corrected Calcium 9.3 Phosphorus 4.0 Magnesium 1.8 Total Bilirubin 0.4 AST 28 ALT 17 Alkaline Phosphatase 35 L Total Protein 5.8 Albumin 3.5 Globulin 2.3 Albumin/Globulin Ratio 1.5 Vancomycin Trough 13.9 H Impressions Impression: # Biliary dyskinesia Scheduled for lap floresita today ABG Interpretation ABG results: 05/14/24 05/15/24 17:25 16:48 VBG pH 7.49 7.39 VBG pCO2 21 L 28 L VBG pO2 35 43 VBG Base Excess -5 L -7 L Assessment & Plan A&P Narrative mild anemia presumptive gastroparesis with controlled dm dermoid tumor hypothyroid htn hld possible epidural abscess with neg cx on empiric vanco/zosyn ideally, this is drained or pt is referred for such so that if the referral is denied, please document any rationale for no intervention so we all can know why that is the case ok to change zosyn to rocephin and vanco to po doxy and see if other meds can be changed to po too. if empiric rx is to be the goal, then use agents that are supported by micro or are easy to use. she likely needs dermoid addressed at some point as well. will not see again unless requested as inpt current abx are more toxic and require more daily doses then alternative empiric rx. favor rocephin 2 gm iv daily and po doxy 100 bid thru 07/09 with weekly cbc, renal panel, esr and line removal at end of rx if process remains, please re visit drainage at end of iv run and extend abx will see prn. f/u with dr Reardon on the tpn. I generally do not provide that rx. Time Spent With Patient Time: Total time spent is greater than 50% in coordination of care (as documented) at patient's floor/unit and/or counseling patient:
--- NOTE | 2024-06-08 11:08 | PD.SURPROG ---
Documentation for date of: 06/07/24 Subjective Subjective Narrative: Patient is seen and examined. Her nausea and vomiting are improving with medications Exam Vital Signs Temp Pulse Resp BP Pulse Ox O2 Del Method 97.7 F 98 18 141/86 H 97 Room Air 06/08/24 07:36 06/08/24 07:36 06/08/24 07:36 06/08/24 07:36 06/08/24 07:36 06/08/24 07:36 Constitutional Constitutional: no acute distress Routine Abdominal Exam Abdominal: Present soft, normoactive bowel sounds and tenderness (Mild right upper quadrant tenderness to deep palpation, no rebound tenderness or peritonitis at this time); Absent distended Assessment & Plan Diagnosis (1) Biliary dyskinesia: Status: Acute Plan Patient has decided to proceed with laparoscopic possible open cholecystectomy. She understands that because her gallbladder ejection fraction is mildly decreased, her symptoms of nausea or vomiting may not improve. I the risks of the procedure that include but not limited to infection, bleeding, injury to bowel, liver, stomach, bile duct, bile leak, abdominal sepsis and or abdominal abscess, need for further procedure and or operation, pneumonia and blood clot discussed with the patient. Benefits and alternatives explained to her, all her questions answered, she agreed and consented to proceed with the operation.
--- NOTE | 2024-06-08 11:12 | PD.SUROPNT ---
Date of Procedure 06/08/24 Pre Op Diagnosis Biliary dyskinesia Post Op Diagnosis Biliary dyskinesia with chronic cholecystitis Mildly enlarged and fatty liver Procedure Laparoscopic cholecystectomy Findings Gallbladder was moderately distended with evidence of chronic cholecystitis. The liver was mildly enlarged and fatty in appearance. Procedure Description Patient was brought into the operating room in supine position. After administration of general endotracheal anesthesia abdomen was prepped and draped in standard surgical manner. A Veress needle was inserted through the umbilicus and pneumoperitoneum was obtained up to 15 mmHg. The Veress needle was then removed, a 5 mm infraumbilical incision was made and the 5mm trocar was inserted. Laparoscopic camera was placed. Under direct visualization a laparoscopic camera a 10 mm trocar was placed in subxiphoid and two 5 mm trocars placed in right upper quadrant. Liver was mildly enlarged and fatty in appearance. The gallbladder was identified and was noted to be moderately distended with evidence of chronic cholecystitis. It was retracted cephalad and laterally. Dissection started near the infundibulum of gallbladder where cystic duct and gallbladder junction clearly identified. The cystic duct was circumferentially dissected off the peritoneum and surrounding inflammatory tissue. The critical view of safety was clearly demonstrated. Cystic duct was then divided between 2 endoclips proximally and one distally. The cystic artery was similarly dissected and divided. The gallbladder was then from the liver bed using electrocautery. The gallbladder was then placed inside an Endo Catch and removed from the abdomen utilizing subxiphoid trocar site. The area was copiously and thoroughly washed and irrigated, all the fluid was suctioned and the suction fluid returned clear. Hemostasis achieved using electrocautery. Endoclips noted be in place and intact without any bleeding or any leakage. Hemostasis was adequate and satisfactory. The subxiphoid trocar sites fascial defect was closed with 0 Vicryl using Endo Closure device. Instruments and trocars removed, pneumoperitoneum was evacuated and the incisions closed with 4-0 Monocryl in subcuticular fashion. Instrument needle and sponge counts were all reported to be correct X2. Patient tolerated the procedure well, was extubated, breathing spontaneously and without difficulty and was transferred to postanesthesia care in stable condition. Anesthesia GETA and local Pathology / specimen Other (Gallbladder) Estimated Blood Loss 10 Condition Stable Disposition PACU Surgeon Lourdes Davis MD Surgical Staff Operation Date: 06/08/24 11:15 <No data on this case meets the specified criteria>
--- NOTE | 2024-06-08 11:54 | SUR.PHASEI ---
1154 Patient arrived to recovery resting comfortably in [facility], on oxygen 8L via oxy mask, breathing unlabored, vital signs stable, denies pain, dressing intact to abdomen; dermabond x4 ports, no bleeding noted, lung sounds clear upon auscultation, bilateral radial pulses pulses present when palpated, report received from Rick GIL and Dr. Junior
[2024-06-08] MEDS: fentaNYL CIT INJ 50 mCg/ML AMP 2ML 25 MCG IV (12:24)
[2024-06-08] MEDS: ACETAMINOPHEN IVPB 1,000 MG/100 ML VIAL 250 MG IV ×2 (12:25→17:35)
--- NOTE | 2024-06-08 12:38 | SUR.PHASEI ---
1234 Report given to Emy GIL, patient meets discharge criteria from recovery, awake and alert, breathing unlabored, vital signs stable, per patient her pain is tolerable; patient currently has IV medication running in IV, patient eating ice chips and tolerating well 1238 Patient transported via gurney to room 373 without incident, patient able to ambulate from gurney to bed with standby assist, patient resting comfortably in bed with call light in reach when this engineering writer left patients room.
[2024-06-08] MEDS: VANCOMYCIN/NS 750 MG IVPB 750 MG/150 ML BAG 120 MG IV ×2 (13:33→21:32)
[2024-06-08] MEDS: POTASSIUM CHL 20 mEq IVPB 20 MEQ/100 ML BAG 50 MEQ IV ×2 (13:33→16:14)
[2024-06-08] MEDS: HYDROcodone/APAP 5/325 TABLET 1 TAB PO ×2 (13:50→20:18)
[2024-06-08] MEDS: MORPHINE SULF INJ 10 MG/ML VIAL 3 MG IVP (16:41)
--- NOTE | 2024-06-08 16:45 | PD.RESPRO ---
Documentation for date of: 06/08/24 Subjective Subjective Interval history: Patient was seen and examined at bedside after the surgery. Reported that her pain is 5 out of 10 she was given pain medication at this time. Patient was cleared for clear liquid diet per the general surgeon Dr. Davis. Surgery was done patient tolerated well with no complications at this time. Patient denied any nausea or vomiting. Does not appear pale or icterus. Exam Vital Signs Temp Pulse Resp BP Pulse Ox O2 Del Method O2 Flow Rate 97.0 F 101 H 18 154/93 H 96 Room Air 4 06/08/24 16:00 06/08/24 16:00 06/08/24 16:00 06/08/24 16:00 06/08/24 16:00 06/08/24 16:00 06/08/24 12:09 Narrative Exam GEN: AOx3, able to speak full sentences HEENT: NC/AC, PERRLA, oral mucosa moist, neck supple CVS: RRR, S1-S2 present, no murmurs appreciated RESP: CTAB GI: Laparoscopic scars newly dressed, soft,non distended, mildly tender, NBS MSK: able to move all 4 limbs, no lower extremity edema SKIN: warm and dry BROOD HATCHERY MANAGER: CN II-XII and Sensation grossly intact. Objective Labs 06/09/24 04:45 06/09/24 04:45 Labs: Laboratory Results - last 24 hr 06/08/24 06/08/24 05:25 09:02 WBC 6.7 RBC 2.62 L Hgb 8.0 L Hct 24.9 L MCV 95 MCH 30.5 MCHC 32.1 RDW Std Deviation 69.0 H Plt Count 338 Neut % (Auto) 55 Lymph % (Auto) 25 [place] % (Auto) 13 H Eos % (Auto) 5 Baso % (Auto) 1 Neut # (Auto) 3.7 Lymph # (Auto) 1.7 [place] # (Auto) 0.9 H Eos # (Auto) 0.3 Baso # (Auto) 0.1 Immature Gran # (Auto) 0.05 H Absolute Nucleated RBC 0.00 Immature Gran % 1 H Nucleated RBC % 0 PT 12.1 INR 1.1 APTT 22.1 Sodium 141 Potassium 3.3 L Chloride 112 H Carbon Dioxide 19.5 L Anion Gap 10 BUN 6 L Creatinine 0.7 Estim Creat Clear Calc 99.8 eGFR > 60 BUN/Creatinine Ratio 9 L Glucose 104 Calculated Osmolality 278 Calcium 8.9 Corrected Calcium 9.3 Phosphorus 4.0 Magnesium 1.8 Total Bilirubin 0.4 AST 28 ALT 17 Alkaline Phosphatase 35 L Total Protein 5.8 Albumin 3.5 Globulin 2.3 Albumin/Globulin Ratio 1.5 Vancomycin Trough 13.9 H ABG Interpretation ABG results: 05/14/24 05/15/24 17:25 16:48 VBG pH 7.49 7.39 VBG pCO2 21 L 28 L VBG pO2 35 43 VBG Base Excess -5 L -7 L Quality Measures Quality Measures VTE prophylaxis (Heparin ) Assessment & Plan Assessment Current Active Medications: Generic Name Dose Route Start Last Admin Trade Name Freq PRN Reason Stop Dose Admin Acetaminophen 650 mg 05/15/24 18:27 05/31/24 14:37 Acetaminophen 325 Mg Tablet PO 06/14/24 18:26 650 mg Q4HR PRN Administration Fever >101 or pain 1-3 Hydrocodone Bitart/Acetaminophen 1 tab 06/05/24 19:59 06/08/24 13:50 Hydrocodone/Apap 5/325 Tablet PO 06/10/24 19:58 1 tab Q6HR PRN Administration PAIN SCALE 4-10(Mod-Sev Amitriptyline HCl 25 mg 06/01/24 21:00 06/07/24 20:53 Amitriptyline Hcl 25 Mg Tablet PO 07/01/24 20:59 25 mg HS MEGAN Administration Dextrose 25 ml 06/04/24 20:00 Dextrose 50%-Water Inj 50 Ml Syringe IV 07/04/24 19:59 Q15MIN PRN BG 50-70 responsive npo pt Dextrose 50 ml 06/04/24 20:00 Dextrose 50%-Water Inj 50 Ml Syringe IV 07/04/24 19:59 Q15MIN PRN BG <50 OR BG <70 & pt unresponsive Glucagon 1 mg 06/04/24 20:00 Glucagon Inj 1 Mg Vial IM Q15MIN PRN BG <70, and no IV access Vancomycin/Sodium Chloride 750 mg in 150 mls @ 120 mls/hr 06/08/24 10:45 06/08/24 13:33 Vancomycin/Ns 750 Mg Ivpb IV 06/15/24 10:44 120 mls/hr BID@1000,2200 MEGAN Administration Protocol Acetaminophen 1,000 mg in 100 mls @ 250 mls/hr 06/08/24 12:00 06/08/24 12:25 Ofirmev Inj IV 06/09/24 06:23 250 mls/hr Q6HR MEGAN Administration Insulin Human Lispro 0 unit 06/08/24 17:00 Insulin Lispro (Admelog) 1 Unit/0.01 Ml Unit SC 07/08/24 16:59 ACHS MEGAN Protocol Levothyroxine Sodium 50 mcg 05/31/24 09:00 06/08/24 08:10 Levothyroxine Inj 100 Mcg Vial IV 06/30/24 08:59 50 mcg QDAY MEGAN Administration Lidocaine 1 patch 05/21/24 09:21 05/31/24 21:07 Lidocaine 5% 1 Patch TOP 06/20/24 09:20 1 patch UD PRN Administration PAIN Protocol Megestrol Acetate 400 mg 05/31/24 09:15 06/08/24 08:08 Megestrol Acet Susp 400 Mg/10 Ml Udc PO 06/30/24 09:14 Not Given BID MEGAN Metoclopramide HCl 5 mg 06/05/24 18:00 06/08/24 13:34 Metoclopramide 5 Mg Tablet PO 07/05/24 17:59 5 mg Q6HR MEGAN Administration Morphine Sulfate 3 mg 06/08/24 12:42 06/08/24 16:41 Morphine Sulf Inj 10 Mg/Ml Vial IVP 06/13/24 12:41 3 mg Q3H PRN Administration PAIN SCALE 7-10 (Severe Multivitamins 1 tab 06/03/24 11:30 06/08/24 08:08 Multivitamins Tablet PO 07/03/24 11:29 Not Given QDAY MEGAN Ondansetron HCl 4 mg 06/05/24 13:45 Ondansetron Odt 4 Mg Tabrap PO 07/05/24 13:44 Q6HR PRN NAUSEA OR VOMITING Protocol Pharmacy Consult 1 each 05/22/24 09:00 Vancomycin Pharmacy To Dose 1 Each Each IV 06/21/24 08:59 QDAY PRN CONSULT Promethazine HCl 25 mg 05/31/24 13:15 06/08/24 13:50 Promethazine Hcl 25 Mg Tablet PO 06/30/24 13:14 25 mg Q6HR MEGAN Administration Simethicone 80 mg 05/26/24 11:42 Simethicone 80 Mg Chew PO 06/25/24 11:41 QID PRN GAS Sodium Chloride 2.5 ml 06/04/24 09:00 06/08/24 08:10 Sodium Chloride 0.9% Inj 10 Ml Vial IV 07/04/24 08:59 2.5 ml DAILY MEGAN Administration Plan 59-year-old female with a past medical history of hypertension, diabetes, hypothyroidism and hyperlipidemia who presented to the ED on 05/14/2024 with abdominal pain, nausea and vomiting that has persisted over the last 2 months. The patient has been admitted for management of intractable nausea and vomiting, starvation ketosis. Patient on imaging was found to have spinal epidural abscess with multiple attempts to transfer the patient to a [facility] care various institutions infiltrative patient and recommend conservative management. #Intractable nausea and vomiting #? Biliary dyskinesia s/p cholecystectomy day 0 #? Cyclic vomiting syndrome HIDA shows reduced EJ ~23% Will transition to oral antiemetics at this time as pt is improving Pt to get cholecystectomy today, unsure what time. Unsure if cholecystectomy will resolve patient's symptoms, however patient would like to try and as recommended by general surgery Pt's symptoms and oral intake greatly improved with amtriypline and megace Plan: -Zofran PO as needed -Reglan 5 mg PO every 6 hours ?Promethazine 25 mg p.o. every 6 hours -Encourage p.o. intake as tolerated, Megace added by nephrology ?Continue amitriptyline, and megace -Neurology on case appreciate recommendations -GI on the case appreciate recommendations ?General Surgery on consult, appreciate recs ?Patient cleared for clear liquid diet per the general surgeon Dr. Davis. #Epidural abscess #Osteomyelitis/discitis With no urinary or bladder incontinence Found on lumbar MRI ID recommends 2 g daily Rocephin and doxycycline, however patient cannot take doxycycline as she already has GI upset Will eventually adjust rocephin 2g daily once pt is d/c to SNF Spoke with ID, they recommend Bactrim BID po upon d/c for alternative for doxycycline Last abx date 07/09/2023 to complete 6 weeks During hospitalization, pt requires IV Rocephin 2g BID Plan: -Will switch from vancomycin to oral Bactrim BID upon discharge, and continue Rocephin 2g IV once a day upon discharge to SNF -ID consulted, appreciate recommendations -Continue to pursue transfer #Metabolic acidosis, improving Current bicarb ~21 Plan: ?Nephrology on consult, appreciate recs #Electrolyte abnormalities #Hypokalemia secondary to #GI losses #Diarrhea, improving C diff negative Plan: ?Replete as needed ?Treat as above with antiemetics ?As above #Type 2 diabetes mellitus A1c 6.8 -on insulin sliding scale #Hypothyroidism Patient noted to have TSH of 75 however T4 at 0.76 ?On 50 Synthroid IV, will transition to PO after surgery #Health Maintenance Disposition: Medsurg DVT prophylaxis: Heparin GI prophylaxis: Simethicone Diet: Clear liquid diet, carb consistent. CODE STATUS: Full - Patient's plan and care discussed with my attending, Dr. Freddie Boland MD Internal Medicine PGY-2 Attending Provider Attestation/Addendum I have examined the patient, reviewed labs and imaging findings, discussed the case with the resident(s), and reviewed entered orders. I agree with the plan of care as outlined in this note, with these additional summaries/recommendations: Patient seen at bedside. No acute overnight events. Patient continues to report improvement in intractable nausea/vomiting. She will go for cholecystectomy today with general surgery. We will follow-up with patient postoperatively. Hypokalemia present again today and replacement given. Continue IV antibiotics for osteomyelitis/epidural abscess of spine. Repeat hematology and chemistry panel in AM. Dr. Frazier
[2024-06-08] MEDS: INSULIN LISPRO (AdmeLOG) 1 UNIT/0.01 ML UNIT SC ×2 (17:35→20:08)
[2024-06-08] MEDS: MEGESTROL ACET SUSP 400 MG/10 ML UDC PO (20:07)
[2024-06-08] MEDS: AMITRIPTYLINE HCL 25 MG TABLET PO (20:07)
--- NOTE | 2024-06-08 23:00 | VVPN_ITS ---
Telemedicine visit statement This visit was conducted with the use of phone visit was obtained on 06/08/24 at 2300. Documentation for date of: 06/08/24 Subjective Subjective Interval history: Patient is in MedSurg. Still with pain in the lower back and right lower extremity. She is tolerating oral diet better, needing to take pain meds every 10-12 hours. Virtual exam Vital Signs Temp Pulse Resp BP Pulse Ox O2 Del Method O2 Flow Rate 97.7 F 108 H 18 128/82 96 Room Air 4 06/08/24 20:00 06/08/24 20:00 06/08/24 20:00 06/08/24 20:00 06/08/24 20:00 06/08/24 20:00 06/08/24 12:09 Objective Labs 06/08/24 05:25 06/08/24 05:25 Labs: Laboratory Results - last 24 hr 06/08/24 06/08/24 05:25 09:02 WBC 6.7 RBC 2.62 L Hgb 8.0 L Hct 24.9 L MCV 95 MCH 30.5 MCHC 32.1 RDW Std Deviation 69.0 H Plt Count 338 Neut % (Auto) 55 Lymph % (Auto) 25 [place] % (Auto) 13 H Eos % (Auto) 5 Baso % (Auto) 1 Neut # (Auto) 3.7 Lymph # (Auto) 1.7 [place] # (Auto) 0.9 H Eos # (Auto) 0.3 Baso # (Auto) 0.1 Immature Gran # (Auto) 0.05 H Absolute Nucleated RBC 0.00 Immature Gran % 1 H Nucleated RBC % 0 PT 12.1 INR 1.1 APTT 22.1 Sodium 141 Potassium 3.3 L Chloride 112 H Carbon Dioxide 19.5 L Anion Gap 10 BUN 6 L Creatinine 0.7 Estim Creat Clear Calc 99.8 eGFR > 60 BUN/Creatinine Ratio 9 L Glucose 104 Calculated Osmolality 278 Calcium 8.9 Corrected Calcium 9.3 Phosphorus 4.0 Magnesium 1.8 Total Bilirubin 0.4 AST 28 ALT 17 Alkaline Phosphatase 35 L Total Protein 5.8 Albumin 3.5 Globulin 2.3 Albumin/Globulin Ratio 1.5 Vancomycin Trough 13.9 H ABG Interpretation ABG results: 05/14/24 05/15/24 17:25 16:48 VBG pH 7.49 7.39 VBG pCO2 21 L 28 L VBG pO2 35 43 VBG Base Excess -5 L -7 L Assessment & Plan Assessment #Epidural abscess #Osteomyelitis/discitis #Intractable nausea and vomiting: resolved. She did undergp GB surgery by Dr. Davis. MRI brain did not show any significant white matter changes, not consistent with demyelinating disease. MRI of the C-spine and T-spine: Did not show any evidence of demyelination as seen in neuromyelitis optica spectrum disorder. Abx as per ID specialist
[2024-06-09] VITALS (7 sets, daily range): BP systolic 112–144; BP diastolic 60–90; PULSE 93–108; RESP 17–18; TEMP 36.1–37.2; O2SAT 97–99; BMI 33.3
[2024-06-09] MEDS: ACETAMINOPHEN IVPB 1,000 MG/100 ML VIAL 250 MG IV (00:10)
[2024-06-09] MEDS: METOCLOPRAMIDE 5 MG TABLET PO ×4 (00:12→19:26)
[2024-06-09] MEDS: PROMETHAZINE HCL 25 MG TABLET PO ×4 (00:12→19:26)
[2024-06-09] MEDS: HYDROcodone/APAP 5/325 TABLET 1 TAB PO ×2 (05:03→19:42)
[2024-06-09 05:09] LABS: Basophils % (Auto) 0 % (0-2.5); Eosinophils % (Auto) 0 % (0-10); Hematocrit 25.3 % (36.0-46.0); Immature Granulocytes % (Auto) 1 % (0-0); Immature Granulocytes Auto 0.09 Thou/mm3 (0.00-0.00); Lymphocytes # (Auto) 1.5 Thou/mm3 (1.0-4.8); Lymphocytes % (Auto) 16 % (10-50); Mean Corpuscular Hemoglobin 30.7 pg (25.0-35.0); Mean Corpuscular Volume 96 fL (80-100); Monocytes # (Auto) 0.9 Thou/mm3 (0.0-0.8); Monocytes % (Auto) 9 % (0-12); Neutrophils # (Auto) 6.8 Thou/mm3 (1.8-7.7); Neutrophils % (Auto) 74 % (37-80); Nucleated Red Blood Cell % 0 /100 WBC (0); Platelet Count 364 Thou/mm3 (140-440); RDW Standard Deviation 68.3 fL (36.4-46.3); Red Blood Count 2.64 Miln/mm3 (4.00-5.20); White Blood Count 9.2 Thou/mm3 (3.6-11.0)
[2024-06-09 05:10] LABS: Hemoglobin 8.1 g/dL (12.0-16.0)
[2024-06-09 05:38] LABS: Alanine Aminotransferase 44 U/L (10-49); Albumin, Serum 3.7 gm/dL (3.5-5.0); Albumin/Globulin Ratio 1.5 (1.2-2.2); Alkaline Phosphatase 43 U/L (46-116); Anion Gap 10 (7-16); Aspartate Amino Transferase 75 U/L (0-34); BUN/Creatinine Ratio 8 Ratio (12-20); Bilirubin,Total 0.4 mg/dL (0.3-1.2); Blood Urea Nitrogen 6 mg/dL (9-23); Calcium 8.9 mg/dL (8.3-10.6); Calcium (Corrected) 9.1 mg/dL (8.5-10.1); Carbon Dioxide 18.8 mMol/L (20.0-31.0); Chloride 107 mMol/L (98-107); Creatinine (Component) 0.8 mg/dL (0.6-1.3); Estimated Creatinine Clearance 81.1 mL/min (>60); Globulin 2.4 gm/dL (2.3-3.5); Glucose 126 mg/dL (74-106); Magnesium 1.8 mg/dL (1.6-2.6); Osmolality,Calculated 271 (275-295); Potassium 3.8 mMol/L (3.4-5.1); Sodium 136 mMol/L (136-145); Total Protein 6.1 gm/dL (5.7-8.2); eGFR > 60 See Note
--- NOTE | 2024-06-09 06:13 | PC.NURSE ---
RN attempted to administer 0600 dose, but RN received warning message that patient has reached the maximum dose. RN called night pharmacy to ask if the 0600 dose of ofirmev should be held or is it okay to give. Night pharmacy said to hold the 0600 dose of ofirmev.
[2024-06-09] MEDS: SODIUM CHLORIDE 0.9% INJ 10 ML VIAL 2.5 ML IV (09:39)
[2024-06-09] MEDS: VANCOMYCIN/NS 750 MG IVPB 750 MG/150 ML BAG 120 MG IV ×2 (09:39→22:54)
[2024-06-09] MEDS: LEVOTHYROXINE INJ 100 mCg VIAL 50 MCG IV (09:39)
[2024-06-09] MEDS: MEGESTROL ACET SUSP 400 MG/10 ML UDC PO ×2 (09:40→20:01)
[2024-06-09] MEDS: MULTIVITAMINS TABLET 1 TAB PO (09:40)
[2024-06-09] MEDS: MORPHINE SULF INJ 10 MG/ML VIAL 3 MG IVP ×2 (10:02→21:38)
--- NOTE | 2024-06-09 12:26 | PD.SURPROG ---
Documentation for date of: 06/09/24 Subjective Subjective Narrative: Patient is seen and examined. Pain is improving. She is tolerating diet without nausea or vomiting Exam Vital Signs Temp Pulse Resp BP Pulse Ox O2 Del Method O2 Flow Rate 99.0 F 103 H 18 138/90 H 97 Room Air 4 06/09/24 12:00 06/09/24 12:00 06/09/24 12:00 06/09/24 12:00 06/09/24 12:00 06/09/24 12:00 06/08/24 12:09 Constitutional Constitutional: no acute distress Routine Abdominal Exam Abdominal: Present soft, normoactive bowel sounds and tenderness (Mild epigastric incisional tenderness. Incisions are clean, dry and intact); Absent distended Assessment & Plan Assessment Additional comments: Postop day #1 status post laparoscopic cholecystectomy Plan May discharge from surgical standpoint Procedures Procedures Laparoscopic cholecystectomy
--- NOTE | 2024-06-09 15:43 | PD.IMPROG ---
Documentation for date of: 06/09/24 Subjective Subjective Interval history: Patient status post laparoscopic cholecystectomy for chronic cholecystitis and biliary dyskinesia Doing well postoperatively Exam Vital Signs Temp Pulse Resp BP Pulse Ox O2 Del Method O2 Flow Rate 99.0 F 103 H 18 138/90 H 97 Room Air 4 06/09/24 12:00 06/09/24 12:00 06/09/24 12:00 06/09/24 12:00 06/09/24 12:00 06/09/24 12:00 06/08/24 12:09 Objective Labs 06/09/24 04:45 06/09/24 04:45 Labs: Laboratory Results - last 24 hr 06/09/24 04:45 WBC 9.2 RBC 2.64 L Hgb 8.1 L Hct 25.3 L MCV 96 MCH 30.7 MCHC 32.0 RDW Std Deviation 68.3 H Plt Count 364 Neut % (Auto) 74 Lymph % (Auto) 16 [place] % (Auto) 9 Eos % (Auto) 0 Baso % (Auto) 0 Neut # (Auto) 6.8 Lymph # (Auto) 1.5 [place] # (Auto) 0.9 H Eos # (Auto) 0.0 Baso # (Auto) 0.0 Immature Gran # (Auto) 0.09 H Absolute Nucleated RBC 0.00 Immature Gran % 1 H Nucleated RBC % 0 Sodium 136 Potassium 3.8 D Chloride 107 Carbon Dioxide 18.8 L Anion Gap 10 BUN 6 L Creatinine 0.8 Estim Creat Clear Calc 81.1 eGFR > 60 BUN/Creatinine Ratio 8 L Glucose 126 H Calculated Osmolality 271 L Calcium 8.9 Corrected Calcium 9.1 Phosphorus 4.0 Magnesium 1.8 Total Bilirubin 0.4 AST 75 H ALT 44 Alkaline Phosphatase 43 L D Total Protein 6.1 Albumin 3.7 Globulin 2.4 Albumin/Globulin Ratio 1.5 Impressions Impression: # Bili dyskinesia status post laparoscopic cholecystectomy # Improved nausea vomiting Continue current management ABG Interpretation ABG results: 05/14/24 05/15/24 17:25 16:48 VBG pH 7.49 7.39 VBG pCO2 21 L 28 L VBG pO2 35 43 VBG Base Excess -5 L -7 L Assessment & Plan A&P Narrative mild anemia presumptive gastroparesis with controlled dm dermoid tumor hypothyroid htn hld possible epidural abscess with neg cx on empiric vanco/zosyn ideally, this is drained or pt is referred for such so that if the referral is denied, please document any rationale for no intervention so we all can know why that is the case ok to change zosyn to rocephin and vanco to po doxy and see if other meds can be changed to po too. if empiric rx is to be the goal, then use agents that are supported by micro or are easy to use. she likely needs dermoid addressed at some point as well. will not see again unless requested as inpt current abx are more toxic and require more daily doses then alternative empiric rx. favor rocephin 2 gm iv daily and po doxy 100 bid thru 07/09 with weekly cbc, renal panel, esr and line removal at end of rx if process remains, please re visit drainage at end of iv run and extend abx will see prn. f/u with dr Reardon on the tpn. I generally do not provide that rx. Time Spent With Patient Time: Total time spent is greater than 50% in coordination of care (as documented) at patient's floor/unit and/or counseling patient:
[2024-06-09] MEDS: INSULIN LISPRO (AdmeLOG) 1 UNIT/0.01 ML UNIT SC ×2 (16:48→20:09)
--- NOTE | 2024-06-09 16:57 | ESPR_ITS ---
<Statement entered by Иван Boland MD - 06/09/24 16:59> Patient was seen and examined at bedside. No overnight incidents. Patient had bowel movement this morning. Diet was advanced with no issues. Patient was cleared from general surgery standpoint for discharge. Will keep the patient overnight for monitoring and will switch her IV medications to oral medications from today to prepare the patient for discharge at the monitor if there is any nausea or vomiting. Will keep the ceftriaxone IV for her epidural abscess. On discharge will consider switching the Reglan p.o. as needed because the patient has multiple episodes of bowel movements most likely secondary to Reglan's. Prokinetic effect. C. difficile was negative. - Patient's plan and care discussed with my attending, Dr. Freddie Boland MD Internal Medicine PGY-2 Documentation for date of: 06/09/24 Subjective Subjective Interval history: Patient examined at bedside today. No acute overnight events. Says that she is hungry, has not vomited or had any nausea. Says her pain is under control with the pain medicines we are giving her. Had a bowel movement that was a bit watery. No other complaints at this time. Is wondering when she can go home. Exam Vital Signs Temp Pulse Resp BP Pulse Ox O2 Del Method O2 Flow Rate 97.0 F 96 18 123/74 99 Room Air 4 06/09/24 16:00 06/09/24 16:00 06/09/24 16:00 06/09/24 16:00 06/09/24 16:00 06/09/24 16:00 06/08/24 12:09 Narrative Exam General: AAOx3, NAD, looks stronger and more awake with energy HEENT: Moist mucous membranes, conjunctiva clear, EOMI, PERRLA, Cardiovascular: S1, S2, radial pulses +2 bilat, RRR Pulmonary: CTAB bilat no cough, no wheezing GI: Laprascopic scars present, dressings present Extremities: No presence of trace or pitting edema in lower extremities bilaterally, dorsalis pedis pulses +2 bilaterally, L upper hand in site of IV erythematous and TTP Neuro: AAOx3, resting tremor in UE bilat Psych: Good judgement, thought and behavior. Cooperative Objective Labs 06/10/24 05:28 06/10/24 05:28 Labs: Laboratory Results - last 24 hr 06/09/24 04:45 WBC 9.2 RBC 2.64 L Hgb 8.1 L Hct 25.3 L MCV 96 MCH 30.7 MCHC 32.0 RDW Std Deviation 68.3 H Plt Count 364 Neut % (Auto) 74 Lymph % (Auto) 16 [place] % (Auto) 9 Eos % (Auto) 0 Baso % (Auto) 0 Neut # (Auto) 6.8 Lymph # (Auto) 1.5 [place] # (Auto) 0.9 H Eos # (Auto) 0.0 Baso # (Auto) 0.0 Immature Gran # (Auto) 0.09 H Absolute Nucleated RBC 0.00 Immature Gran % 1 H Nucleated RBC % 0 Sodium 136 Potassium 3.8 D Chloride 107 Carbon Dioxide 18.8 L Anion Gap 10 BUN 6 L Creatinine 0.8 Estim Creat Clear Calc 81.1 eGFR > 60 BUN/Creatinine Ratio 8 L Glucose 126 H Calculated Osmolality 271 L Calcium 8.9 Corrected Calcium 9.1 Phosphorus 4.0 Magnesium 1.8 Total Bilirubin 0.4 AST 75 H ALT 44 Alkaline Phosphatase 43 L D Total Protein 6.1 Albumin 3.7 Globulin 2.4 Albumin/Globulin Ratio 1.5 ABG Interpretation ABG results: 05/14/24 05/15/24 17:25 16:48 VBG pH 7.49 7.39 VBG pCO2 21 L 28 L VBG pO2 35 43 VBG Base Excess -5 L -7 L Quality Measures Quality Measures VTE prophylaxis (Heparin ) Assessment & Plan Assessment Current Active Medications: Generic Name Dose Route Start Last Admin Trade Name Joelq PRN Reason Stop Dose Admin Acetaminophen 650 mg 05/15/24 18:27 05/31/24 14:37 Acetaminophen 325 Mg Tablet PO 06/14/24 18:26 650 mg Q4HR PRN Administration Fever >101 or pain 1-3 Hydrocodone Bitart/Acetaminophen 1 tab 06/05/24 19:59 06/09/24 05:03 Hydrocodone/Apap 5/325 Tablet PO 06/10/24 19:58 1 tab Q6HR PRN Administration PAIN SCALE 4-10(Mod-Sev Amitriptyline HCl 25 mg 06/01/24 21:00 06/08/24 20:07 Amitriptyline Hcl 25 Mg Tablet PO 07/01/24 20:59 25 mg HS MEGAN Administration Dextrose 25 ml 06/04/24 20:00 Dextrose 50%-Water Inj 50 Ml Syringe IV 07/04/24 19:59 Q15MIN PRN BG 50-70 responsive npo pt Dextrose 50 ml 06/04/24 20:00 Dextrose 50%-Water Inj 50 Ml Syringe IV 07/04/24 19:59 Q15MIN PRN BG <50 OR BG <70 & pt unresponsive Glucagon 1 mg 06/04/24 20:00 Glucagon Inj 1 Mg Vial IM Q15MIN PRN BG <70, and no IV access Vancomycin/Sodium Chloride 750 mg in 150 mls @ 120 mls/hr 06/08/24 10:45 06/09/24 09:39 Vancomycin/Ns 750 Mg Ivpb IV 06/15/24 10:44 120 mls/hr BID@1000,2200 MEGAN Administration Protocol Insulin Human Lispro 0 unit 06/08/24 17:00 06/09/24 16:48 Insulin Lispro (Admelog) 1 Unit/0.01 Ml Unit SC 07/08/24 16:59 2 unit ACHS MEGAN Administration Protocol Levothyroxine Sodium 125 mcg 06/10/24 06:00 Levothyroxine Sodium 125 Mcg Tablet PO 07/10/24 05:59 ACBR MEGAN Lidocaine 1 patch 05/21/24 09:21 05/31/24 21:07 Lidocaine 5% 1 Patch TOP 06/20/24 09:20 1 patch UD PRN Administration PAIN Protocol Megestrol Acetate 400 mg 05/31/24 09:15 06/09/24 09:40 Megestrol Acet Susp 400 Mg/10 Ml Udc PO 06/30/24 09:14 400 mg BID MEGAN Administration Metoclopramide HCl 5 mg 06/05/24 18:00 06/09/24 12:35 Metoclopramide 5 Mg Tablet PO 07/05/24 17:59 5 mg Q6HR MEGAN Administration Morphine Sulfate 3 mg 06/08/24 12:42 06/09/24 10:02 Morphine Sulf Inj 10 Mg/Ml Vial IVP 06/13/24 12:41 3 mg Q3H PRN Administration PAIN SCALE 7-10 (Severe Multivitamins 1 tab 06/03/24 11:30 06/09/24 09:40 Multivitamins Tablet PO 07/03/24 11:29 1 tab QDAY MEGAN Administration Ondansetron HCl 4 mg 06/05/24 13:45 Ondansetron Odt 4 Mg Tabrap PO 07/05/24 13:44 Q6HR PRN NAUSEA OR VOMITING Protocol Pharmacy Consult 1 each 05/22/24 09:00 Vancomycin Pharmacy To Dose 1 Each Each IV 06/21/24 08:59 QDAY PRN CONSULT Promethazine HCl 25 mg 05/31/24 13:15 06/09/24 12:35 Promethazine Hcl 25 Mg Tablet PO 06/30/24 13:14 25 mg Q6HR MEGAN Administration Simethicone 80 mg 05/26/24 11:42 Simethicone 80 Mg Chew PO 06/25/24 11:41 QID PRN GAS Sodium Chloride 2.5 ml 06/04/24 09:00 06/09/24 09:39 Sodium Chloride 0.9% Inj 10 Ml Vial IV 07/04/24 08:59 2.5 ml DAILY MEGAN Administration Plan 59-year-old female with a past medical history of hypertension, diabetes, hypothyroidism and hyperlipidemia who presented to the ED on 05/14/2024 with abdominal pain, nausea and vomiting that has persisted over the last 2 months. The patient has been admitted for management of intractable nausea and vomiting, starvation ketosis. Patient on imaging was found to have spinal epidural abscess with multiple attempts to transfer the patient to a nursing care various institutions infiltrative patient and recommend conservative management. #Intractable nausea and vomiting #? Biliary dyskinesia s/p cholecystectomy day 1 #? Cyclic vomiting syndrome HIDA shows reduced EJ ~23% Will transition to oral antiemetics at this time as pt is improving Pt to get cholecystectomy today, unsure what time. Unsure if cholecystectomy will resolve patient's symptoms, however patient would like to try and as recommended by general surgery Pt's symptoms and oral intake greatly improved with amtriypline and megace In operative report, gallbladder appeared to be chronically inflamed Patient is improving, anticipate discharge tomorrow Plan: -Zofran PO as needed -Reglan 5 mg PO every 6 hours ?Promethazine 25 mg p.o. every 6 hours -Encourage p.o. intake as tolerated, Megace added by nephrology ?Continue amitriptyline, and megace -Neurology on case appreciate recommendations -GI on the case appreciate recommendations ?General Surgery on consult, appreciate recs ?Diet advanced to regular diet ?Continue pain control #Epidural abscess #Osteomyelitis/discitis With no urinary or bladder incontinence Found on lumbar MRI ID recommends 2 g daily Rocephin and doxycycline, however patient cannot take doxycycline as she already has GI upset Will eventually adjust rocephin 2g daily once pt is d/c to SNF Spoke with ID, they recommend Bactrim BID po upon d/c for alternative for doxycycline Last abx date 07/09/2023 to complete 6 weeks During hospitalization, pt requires IV Rocephin 2g BID Plan: -Will switch from vancomycin to oral Bactrim BID upon discharge, and continue Rocephin 2g IV once a day upon discharge to SNF -ID consulted, appreciate recommendations -Continue to pursue transfer #Metabolic acidosis, improving Current bicarb ~21 Plan: ?Nephrology on consult, appreciate recs #Electrolyte abnormalities #Hypokalemia secondary to #GI losses #Diarrhea, improving C diff negative Plan: ?Replete as needed ?Treat as above with antiemetics ?As above #Type 2 diabetes mellitus A1c 6.8 -on insulin sliding scale #Hypothyroidism Patient noted to have TSH of 75 however T4 at 0.76 ?Levothyroxine 125 mcg PO #Health Maintenance Disposition: Medsurg DVT prophylaxis: Heparin GI prophylaxis: Simethicone Diet: Carb consistent CODE STATUS: Full Patient seen and care discussed with my senior resident, Dr. Boland , and my attending physician, Dr. Freddie Solorio, PGY-1 Attending Provider Attestation/Addendum I have examined the patient, reviewed labs and imaging findings, discussed the case with the resident(s), and reviewed entered orders. I agree with the plan of care as outlined in this note, with these additional summaries/recommendations: Patient seen at bedside. No acute overnight events. Patient is postoperative day #1 status post laparoscopic cholecystectomy. Intraoperatively gallbladder was moderately distended with evidence of chronic cholecystitis. Continue antiemetics. Continue to advance diet. If patient tolerates diet and no further episodes of nausea and vomiting in the next 24 hours then patient can be discharged. Continue IV antibiotics for osteomyelitis/epidural abscess of spine. Repeat hematology and chemistry panel in AM. Patient updated on the plan and in agreement. Dr. Frazier
[2024-06-09] MEDS: AMITRIPTYLINE HCL 25 MG TABLET PO (20:01)
[2024-06-09 22:46] LABS: Vancomycin,Trough 14.9 mcg/mL (5.0-10.0)
[2024-06-10] VITALS: BP 108/66; PULSE 87; PULSE 89; RESP 18; TEMP 36.1; O2SAT 97
[2024-06-10] MEDS: PROMETHAZINE HCL 25 MG TABLET PO ×4 (00:20→17:02)
[2024-06-10] MEDS: METOCLOPRAMIDE 5 MG TABLET PO ×4 (00:20→17:02)
[2024-06-10] MEDS: HYDROcodone/APAP 5/325 TABLET 1 TAB PO (03:30)
[2024-06-10 04:00] VITALS: BP 142/78; PULSE 87; PULSE 90; RESP 18; TEMP 36.3; O2SAT 98
[2024-06-10] MEDS: LEVOTHYROXINE SODIUM 125 MCG TABLET PO (05:15)
[2024-06-10 06:00] VITALS: BMI 36.3
[2024-06-10 06:09] LABS: Basophils # (Auto) 0.1 Thou/mm3 (0.0-0.2); Basophils % (Auto) 1 % (0-2.5); Eosinophils # (Auto) 0.1 Thou/mm3 (0.0-0.5); Eosinophils % (Auto) 1 % (0-10); Hematocrit 25.3 % (36.0-46.0); Immature Granulocytes % (Auto) 1 % (0-0); Immature Granulocytes Auto 0.08 Thou/mm3 (0.00-0.00); Lymphocytes # (Auto) 1.9 Thou/mm3 (1.0-4.8); Lymphocytes % (Auto) 24 % (10-50); Mean Corpuscular Hemoglobin 30.3 pg (25.0-35.0); Mean Corpuscular Volume 95 fL (80-100); Monocytes # (Auto) 1.3 Thou/mm3 (0.0-0.8); Monocytes % (Auto) 16 % (0-12); Neutrophils # (Auto) 4.4 Thou/mm3 (1.8-7.7); Neutrophils % (Auto) 57 % (37-80); Nucleated Red Blood Cell % 0 /100 WBC (0); Platelet Count 370 Thou/mm3 (140-440); RDW Standard Deviation 68.3 fL (36.4-46.3); Red Blood Count 2.67 Miln/mm3 (4.00-5.20); White Blood Count 7.8 Thou/mm3 (3.6-11.0)
[2024-06-10 06:11] LABS: Hemoglobin 8.1 g/dL (12.0-16.0)
[2024-06-10 06:30] LABS: Alanine Aminotransferase 39 U/L (10-49); Albumin, Serum 3.5 gm/dL (3.5-5.0); Albumin/Globulin Ratio 1.5 (1.2-2.2); Alkaline Phosphatase 44 U/L (46-116); Anion Gap 10 (7-16); Aspartate Amino Transferase 44 U/L (0-34); BUN/Creatinine Ratio 11 Ratio (12-20); Bilirubin,Total 0.3 mg/dL (0.3-1.2); Blood Urea Nitrogen 9 mg/dL (9-23); Calcium (Corrected) 9.4 mg/dL (8.5-10.1); Chloride 109 mMol/L (98-107); Creatinine (Component) 0.8 mg/dL (0.6-1.3); Estimated Creatinine Clearance 82.6 mL/min (>60); Globulin 2.3 gm/dL (2.3-3.5); Glucose 109 mg/dL (74-106); Magnesium 1.7 mg/dL (1.6-2.6); Osmolality,Calculated 277 (275-295); Phosphorous 3.2 mg/dL (2.4-5.1); Potassium 3.3 mMol/L (3.4-5.1); Sodium 139 mMol/L (136-145); Total Protein 5.8 gm/dL (5.7-8.2); eGFR > 60 See Note
[2024-06-10 08:00] VITALS: BP 136/79; PULSE 88; PULSE 93; RESP 16; TEMP 36.3; O2SAT 95
[2024-06-10] MEDS: MEGESTROL ACET SUSP 400 MG/10 ML UDC PO (08:23)
[2024-06-10] MEDS: MULTIVITAMINS TABLET 1 TAB PO (08:23)
[2024-06-10] MEDS: MORPHINE SULF INJ 10 MG/ML VIAL 3 MG IVP (08:24)
--- NOTE | 2024-06-10 09:22 | PC.SS ---
Follow up note: SS spoke to Karina at [facility] who states she has started insurance authorization. PASRR has been initiated due to previous PASRR being and Level II Mental Health Evaluation referral is required. SS has sent updated inquiry and PASRR assessment to [facility] upon their request for insurance authorization. Pt is still requiring IV antibiotic, Rocephin 2grm 1 Xa day until Jul 09, 2023.
[2024-06-10] MEDS: POTASSIUM CHLORIDE 20 mEq TABCR 40 MEQ PO (09:29)
[2024-06-10] MEDS: VANCOMYCIN/NS 750 MG IVPB 750 MG/150 ML BAG 120 MG IV (09:31)
[2024-06-10 12:00] VITALS: BP 136/75; PULSE 105; PULSE 94; RESP 20; TEMP 36.3; O2SAT 95
--- NOTE | 2024-06-10 12:12 | PD.IMPROG ---
Documentation for date of: 06/10/24 Subjective Subjective Interval history: Doing well post cholecystectomy In the process of being transferred to a rehab facility No GI follow-up necessary She can be discharged back with the following regimen Promethazine 25 mg p.o. 4 times daily Reglan 5 mg p.o. 30 minutes before meals and at bedtime Exam Vital Signs Temp Pulse Resp BP Pulse Ox O2 Del Method O2 Flow Rate 97.4 F 94 20 136/75 H 95 Room Air 4 06/10/24 12:00 06/10/24 12:00 06/10/24 12:00 06/10/24 12:00 06/10/24 12:00 06/10/24 12:00 06/08/24 12:09 Objective Labs 06/10/24 05:28 06/10/24 05:28 Labs: Laboratory Results - last 24 hr 06/09/24 06/10/24 21:02 05:28 WBC 7.8 RBC 2.67 L Hgb 8.1 L Hct 25.3 L MCV 95 MCH 30.3 MCHC 32.0 RDW Std Deviation 68.3 H Plt Count 370 Neut % (Auto) 57 Lymph % (Auto) 24 [place] % (Auto) 16 H Eos % (Auto) 1 Baso % (Auto) 1 Neut # (Auto) 4.4 Lymph # (Auto) 1.9 [place] # (Auto) 1.3 H Eos # (Auto) 0.1 Baso # (Auto) 0.1 Immature Gran # (Auto) 0.08 H Absolute Nucleated RBC 0.00 Immature Gran % 1 H Nucleated RBC % 0 Sodium 139 Potassium 3.3 L D Chloride 109 H Carbon Dioxide 20.0 Anion Gap 10 BUN 9 Creatinine 0.8 Estim Creat Clear Calc 82.6 eGFR > 60 BUN/Creatinine Ratio 11 L Glucose 109 H Calculated Osmolality 277 Calcium 9.0 Corrected Calcium 9.4 Phosphorus 3.2 Magnesium 1.7 Total Bilirubin 0.3 AST 44 H ALT 39 Alkaline Phosphatase 44 L Total Protein 5.8 Albumin 3.5 Globulin 2.3 Albumin/Globulin Ratio 1.5 Vancomycin Trough 14.9 H Impressions Impression: # Nausea vomiting improved # Biliary dyskinesia status post laparoscopic cholecystectomy plan As under HPI ABG Interpretation ABG results: 05/14/24 05/15/24 17:25 16:48 VBG pH 7.49 7.39 VBG pCO2 21 L 28 L VBG pO2 35 43 VBG Base Excess -5 L -7 L Assessment & Plan A&P Narrative mild anemia presumptive gastroparesis with controlled dm dermoid tumor hypothyroid htn hld possible epidural abscess with neg cx on empiric vanco/zosyn ideally, this is drained or pt is referred for such so that if the referral is denied, please document any rationale for no intervention so we all can know why that is the case ok to change zosyn to rocephin and vanco to po doxy and see if other meds can be changed to po too. if empiric rx is to be the goal, then use agents that are supported by micro or are easy to use. she likely needs dermoid addressed at some point as well. will not see again unless requested as inpt current abx are more toxic and require more daily doses then alternative empiric rx. favor rocephin 2 gm iv daily and po doxy 100 bid thru 07/09 with weekly cbc, renal panel, esr and line removal at end of rx if process remains, please re visit drainage at end of iv run and extend abx will see prn. f/u with dr Reardon on the tpn. I generally do not provide that rx. Time Spent With Patient Time: Total time spent is greater than 50% in coordination of care (as documented) at patient's floor/unit and/or counseling patient:
--- NOTE | 2024-06-10 12:25 | ESDS_ITS ---
Planned Discharge Date 06/10/24 DS: Providers Provider Date of admission: 05/15/24 01:22 Primary care physician: Physician No Primary/Family Admitting Provider: Lonny Fajardo MD Attending Provider on Admission: Clement Frazier MD Consults: 05/15/24 07:35 Referral Registered Dietitian Stat Comment: 05/15/24 08:58 Consult to Gastroenterology Routine Comment: Persistant N/V Consulting Provider: Arnie Reardon 05/17/24 12:14 Consult to Neurology / Tele-Neurology Routine Comment: Consulting Provider: Negrito Hernandez 05/19/24 14:32 Consult to Oncology Routine Comment: Dermoid cyst with associated intracable NVD Consulting Provider: Peterson Patterson 05/22/24 14:17 Consult to Infectious Diseases Routine Comment: concern for osteomyelitis discitis, epidural absce Consulting Provider: Benjy Mcdaniels 05/26/24 14:34 Referral Physical Therapy Routine Comment: Physician Instructions: 05/30/24 15:07 Consult to Nephrology Routine Comment: Consulting Provider: Iona Hadley 06/05/24 10:37 Consult to General Surgery Routine Comment: Concern for biliary dyskinesia Consulting Provider: Lourdes Davis Attending Provider on DC: Clement Frazier MD Discharging Provider: Clement Frazier MD Anticipated date of discharge: 06/10/24 DS: Diagnosis Problem List Completed Was Problem List Reviewed/Reconciled?: Yes Hospital Course Hospital Course Hospital course: Hospital course: Ms. Palumbo is a 59-year-old female with a past medical history of hypertension, diabetes, hypothyroidism, dermoid cyst and hyperlipidemia who was admitted on 05/14/2024 for intractable nausea, vomiting and diarrhea. Patient was recently admitted to hospital in March for starvation ketosis and was discharged, patient reported that she had recurrent nausea and vomiting since discharge. Patient has been having severely poor p.o. intake for the duration of last 3 months. Patient was treated with promethazine, Reglan, Zofran, erythromycin (discontinued because of worsening diarrhea), Ativan, capsaicin were given to the patient to manage patient symptoms. Patient went in and out of having nausea and vomiting symptoms that she had said it can happen at any time, can awaken her from sleep and can happen with fluid. Patient reports that she had unable to tolerate p.o. to the point she was not taking any her p.o. medicines. GI and neurology were consulted for further evaluation of etiology of persistent nausea, vomiting and diarrhea and newly seen horizontal bilateral nystagmus and blurry vision. The recommendations included symptomatic control and further imaging studies. MRI of C-spine, T-spine and brain were done to look for any ideology such as mass effect, multiple sclerosis or any other pathology that could be affecting brain producing stimulation of vomiting center, but those images were unremarkable. Another avenue that was looked into was possible relation of dermoid cyst relation to nausea and vomiting. Oncology was consulted who had recommended patient to get an INDUSTRY CONSULTANT consult. INDUSTRY CONSULTANT was consulted, recommended tumor markers and MRI of abdomen pelvis. Abdomen pelvis showed a 5.6 x 6.0 fat-containing mass consistent with dermoid tumor which did not require any surgical intervention at the time. Serum tumor markers were obtained including beta-hCG, AFP, CEA, CA125 which were all unremarkable although patient had beta-hCG of 10 in the urine. Patient had began to complain of back pain throughout the course of admission, and lumbar MRI was eventually done which showed focal lumbar disc bulges each 5 mm at the L4-L5 and L2-L3 levels, findings most consistent with osteomyelitis discitis L2-L3, L3-L4, and epidural abscess posterior to L1-L5 as above. Patient was asymptomatic for epidural abscess, attempt to transfer was made due to concern of epidural abscess, neurosurgery recommended antibiotic treatment and conservative management, patient was started on IV antibiotics. Eventually patient completed gastric abdomen study which was normal, was started on amitriptyline and Megace, high suspicion of cyclical vomiting syndrome. Gallbladder nuclear medicine scan showed decreased ejection fraction of gallbladder, general surgery was consulted and patient had laparoscopic cholecystectomy. Eventually patient's symptoms improved, patient no longer reported nausea vomiting, was able to tolerate p.o. medication and food. Patient was able to complete her meals. Patient condition improved remarkably with the progression of hospital course. Further plan is to discharge patient to assisted facility on IV ceftriaxone and oral Bactrim till July 09, 2024, patient advised to repeat labs weekly, patient to continue Megace, amitriptyline, Reglan and promethazine. Patient is stable for discharge Discharge Diagnosis: #Intractable nausea and vomiting #Cyclic vomiting syndrome #Biliary dyskinesia s/p cholecystectomy day 1 #Epidural abscess #Osteomyelitis/discitis #Metabolic acidosis, improving #Electrolyte abnormalities #Hypokalemia secondary to #GI losses #Diarrhea, improving #Type 2 diabetes mellitus #Hypothyroidism Case discussed with Attending Dr. Frazier. Edin Linton PGY1 Status at Discharge Functional status at discharge: uses cane/walker Overall status at discharge: patient is progressing back to baseline Time Spent with Patient Time attestation: Total time spent providing and/or coordinating discharge services: Time spent: Greater than 30 minutes Exam Vital Signs Temp Pulse Resp BP Pulse Ox O2 Del Method O2 Flow Rate 97.4 F 94 20 136/75 H 95 Room Air 4 06/10/24 12:00 06/10/24 12:00 06/10/24 12:00 06/10/24 12:06/10/24 12:06/10/24 12:06/08/24 12:09 Narrative Exam General: AAOx3, NAD, looks stronger and more awake with energy HEENT: Moist mucous membranes, conjunctiva clear, EOMI, PERRLA, Cardiovascular: S1, S2, radial pulses +2 bilat, RRR Pulmonary: CTAB bilat no cough, no wheezing GI: Laprascopic scars present, dressings present Extremities: No presence of trace or pitting edema in lower extremities bilaterally, dorsalis pedis pulses +2 bilaterally, L upper hand in site of IV erythematous and TTP Neuro: AAOx3, resting tremor in UE bilat Psych: Good judgement, thought and behavior. Cooperative Discharge Plan Plan Patient Disposition: Xfer Skilled Nsg Fac (SNF) Patient condition on transfer: Stable Care Plan Goals: Follow up with Primary Care Physician in 1 week. Continue taking Amitryptyline every night. Continue Megestrol twice a day and multivitamin. Continue IV Rocephin and Bactrim. Last abx date 07/09/2023 to complete 6 weeks. Weekly Labs ESR, CRP, CBC and Renal Panel. Avoid trigger foods causing nausea. May shower. Avoid lifting, straining, pulling or pushing for 4 weeks. May take over the counter laxatives if no bowel movement in 2 days. Follow up with Dr. Davis in 2 weeks, call [phone] for an appointment. Return to ED if symptoms worsen. SLIDING SCALE INSULIN FINGERSTICK RESULT HUMALOG INSULIN (SC) Normal Scale < 130 No coverage ? 131-180 2 units SC ? 181-240 4 units SC ? 241-300 6 units SC ? 301-350 8 units SC ? 351-400 10 units SC ? greater than 400 16 units SC, Call MD Prescriptions/Referrals Prescriptions/Med Rec: New amitriptyline 25 mg Tablet 25 mg PO HS 30 Days Qty: 30 0RF metoclopramide HCl 5 mg Tablet 5 mg PO Q6HR 30 Days Qty: 30 0RF megestrol 40 mg tablet 160 mg PO QDAY 30 Days Qty: 120 0RF levothyroxine 125 mcg Tablet 125 mcg PO ACBR 30 Days Qty: 30 0RF promethazine 25 mg Tablet 25 mg PO Q6HR 30 Days Qty: 60 0RF ondansetron 4 mg Tablet,Disintegrating 4 mg PO Q6HR PRN (Reason: Nausea Or Vomiting) 30 Days Qty: 60 0RF simethicone 80 mg Tablet,Chewable 80 mg PO QID PRN (Reason: Gas) 30 Days Qty: 60 0RF ceftriaxone 2 gram recon soln 2 g IV QDAY Qty: 10 0RF sulfamethoxazole-trimethoprim 800-160 mg tablet 1 tab PO BID Qty: 60 0RF insulin lispro 100 unit/mL insulin pen 1 sliding scale dose subcut USEASDIRECTD Qty: 15 0RF Continued lovastatin 40 mg Tablet 40 mg PO QDAY alcohol swabs [Alcohol Prep Pads] Pads, Medicated See Rx Instructions .ROUTE .COMPLEX Qty: 200 0RF Rx Instructions: Apply before injections or glucose check. acetaminophen-codeine 300-30 mg tablet 2 tab PO TID MDD 6 PRN (Reason: pain) Qty: 20 0RF Held hydrochlorothiazide 25 mg Tablet 25 mg PO QAM Hold Instructions: re evaluate with PCP Discontinued promethazine 25 mg suppository 25 mg RI Q6H PRN (Reason: nausea and vomiting) Qty: 12 2RF ondansetron 4 mg tablet,disintegrating 4 mg PO Q6H Qty: 60 5RF levothyroxine 125 mcg Tablet 125 mcg PO QDAY erythromycin ethylsuccinate 400 mg/5 mL suspension for reconstitution 400 mg PO TID Qty: 100 0RF insulin glargine 100 unit/mL (3 mL) insulin pen, sensor 5 unit subcut QDAY Qty: 15 0RF metoclopramide HCl 5 mg/5 mL solution 10 mg PO Q6H PRN (Reason: nausea and vomiting) Qty: 473 0RF cefdinir 300 mg capsule 300 mg PO BID Qty: 14 0RF potassium chloride 20 mEq tablet extended release 20 meq PO QDAY Qty: 7 0RF No Action (DME) blood-glucose meter [FreeStyle Lite Meter] Kit See Rx Instructions .Route Qty: 1 0RF Rx Instructions: As directed (DME) lancets [FreeStyle Lancets] 28 gauge misc See Rx Instructions .Route Qty: 100 0RF Rx Instructions: As directed (DME) FreeStyle Lite Strips Strip See Rx Instructions .Route Qty: 100 0RF Rx Instructions: As directed (DME) pen needle, diabetic [Ultra-Thin II Ins Pen Bow] 29 gauge x 1/2 needle See Rx Instructions .Route Qty: 100 0RF Rx Instructions: As directed scopolamine base 1 mg over 3 days patch 3 day 1 patch transdermal Q3D PRN (Reason: nausea) Qty: 4 0RF Rx Instructions: May causes sedation, Avoid driving or other activities requiring alertness. (DME) lancets 28 gauge misc See Rx Instructions .Route Qty: 100 0RF Rx Instructions: As directed sucralfate [Carafate] 100 mg/mL suspension 10 ml PO BID Qty: 300 0RF Referrals: Lourdes Davis MD [Physician] - No Primary/Family,Physician [Primary Care Provider] - Patient/Caregiver Discharge Instructions Discharge Activity: activity as tolerated Other Discharge Activity Instructions:: Follow up with Primary Care Physician in 1 week. Continue taking Amitryptyline every night. Continue Megestrol twice a day and multivitamin. Continue IV Rocephin and Bactrim. Last abx date 07/09/2023 to complete 6 weeks. Weekly Labs ESR, CRP, CBC and Renal Panel. Avoid trigger foods causing nausea. May shower. Avoid lifting, straining, pulling or pushing for 4 weeks. May take over the counter laxatives if no bowel movement in 2 days. Follow up with Dr. Davis in 2 weeks, call [phone] for an appointment. Return to ED if symptoms worsen. Education Materials: Cholecystectomy Laparoscopic Dc, Cyclic Vomiting Syndrome Ch Print Language: Portuguese Activity Restrictions/Additional Instructions: May shower. Avoid lifting, straining, pulling or pushing for 4 weeks. May take over the counter laxatives if no bowel movement in 2 days. Follow up with Dr. Davis in 2 weeks, call [phone] for an appointment. Stand Alone Forms: Stacie Award Info., Patient Portal Info Letter Discharge Order Discharge Orders: Discharge (Routine); Ordered 06/10/24 Ordered By: Tanna Schafer Quality Discharge Quality Measures VTE prophylaxis MD Attestestation MD Attestation I have examined the patient, reviewed labs and imaging findings, discussed the case with the resident(s), and reviewed entered orders. I agree with the plan of care as outlined in this note. Dr. Frazier
--- NOTE | 2024-06-10 14:23 | PC.SS ---
SS has sent patient's dc summary and screen shot of d/c order to [facility] for insurance authorization. SS has spoken to Karina at [facility] who explained she has submitted for authorization and is waiting for status update from patient's health insurance. Previous insurance authorization was on 06-05-24 and pt was not medically cleared for d.c at that time.
[2024-06-10 16:00] VITALS: BP 140/81; PULSE 93; PULSE 95; RESP 16; TEMP 36.6; O2SAT 95
--- NOTE | 2024-06-10 16:33 | PC.SS ---
Addendum entered by Aminah Rodrigues 06/10/24 16:57: SS spoke to Jennifer from [facility] who states they have contacted [employer] for transport Original Note: At 3:55 SS received call from Arlene at [facility] they have received insurance authorization. SS spoke to nurseSergo who confirmed pt received IV antibiotic this morning. Arlene at [facility] is aware and will accept pt tonight. has setup gurney transportation with [employer] ([phone])for 6pm transport time. Ref# [id number]. Est time is 3-4 hours. SS has requested [facility]. has sent patient's facesheet and ambulance form to [facility] using [employer]. SS spoke to Stacy at [facility] and provided her with information from [employer] and ref#. Pt is aware. Grace VALDEZ is aware. NurseSergo is aware. Karina at [facility] is aware.
--- NOTE | 2024-06-10 17:41 | PC.NURSE ---
RN called report to [facility] for this pt at 1742 on 06/10/24. Transportation is scheduled to arrive to [facility] at 1800 06/10/24.
== END 2024-06-10 18:41 | disposition skilled nursing facility (03) | DRG 951 ==
LOC: SERX 05-15 00:25 → SERHOLD 05-15 04:56 → S3SX 05-15 06:17
PROVIDERS: Internal Medicine Infectious Disease; Nurse Practitioner Primary Care; Student in an Organized Health Care Education/Training Program; Surgery; Admitting Provider Internal Medicine; Emergency Provider Emergency Medicine; Visit Provider Student in an Organized Health Care Education/Training Program
PROC: 0FT44ZZ Resection of Gallbladder, Percutaneous Endoscopic Approach (ICD-10-PCS; CPT 47562; principal; 2024-06-08 11:00)
DX: E11.43 Type 2 diabetes mellitus with diabetic autonomic (poly)neuropathy (principal); E87.6 Hypokalemia; E86.0 Dehydration; G06.1 Intraspinal abscess and granuloma; E87.20 Acidosis, unspecified; K76.0 Fatty (change of) liver, not elsewhere classified; K31.84 Gastroparesis; K21.00 Gastro-esophageal reflux disease with esophagitis, without bleeding; K29.70 Gastritis, unspecified, without bleeding; K81.1 Chronic cholecystitis; E11.69 Type 2 diabetes mellitus with other specified complication; E87.0 Hyperosmolality and hypernatremia; E78.00 Pure hypercholesterolemia, unspecified; M06.9 Rheumatoid arthritis, unspecified; M46.26 Osteomyelitis of vertebra, lumbar region; M46.46 Discitis, unspecified, lumbar region; M50.322 Other cervical disc degeneration at C5-C6 level; I10 Essential (primary) hypertension; E03.9 Hypothyroidism, unspecified; K59.00 Constipation, unspecified; H53.2 Diplopia; H55.09 Other forms of nystagmus; E88.89 Other specified metabolic disorders; E83.52 Hypercalcemia; D27.9 Benign neoplasm of unspecified ovary; R11.15 Cyclical vomiting syndrome unrelated to migraine; D64.9 Anemia, unspecified; E83.42 Hypomagnesemia; Z79.890 Hormone replacement therapy; Z79.899 Other long term (current) drug therapy; Z79.4 Long term (current) use of insulin
CPT/HCPCS: 36415; 70450; 70553; 72156; 72157; 72158; 72197; 73521; 74183; 78227; 78264; 80048; 80053; 80061; 80069; 80074; 80202; 81001; 81025; 82010; 82040; 82105; 82378; 82436; 82533; 82570; 82607; 82803; 83036; 83540; 83550; 83690; 83735; 84100; 84133; 84300; 84425; 84439; 84443; 84478; 84702; 84703; 85014; 85018; 85025; 85046; 85610; 85652; 85730; 86038; 86039; 86140; 86225; 86304; 86376; 86430; 86703; 86850; 86900; 86901; 87015; 87040; 87045; 87046; 87086; 87177; 87205; 87209; 87329; 87400; 87493; 87811; 87899; 93005; 93225; 93970; 96361; 96365; 96375; 96376; 97162; 99285; A4216; A4217; A4649; A9537; A9541; A9579; B4185; C1751; C1894; J0131; J0694; J0696; J1100; J1120; J1364; J1642; J1643; J1815; J2250; J2270; J2405; J2470; J2543; J2550; J2704; J2765; J2805; J2997; J3010; J3370; J3411; J3475; J3480; J3490; J7030; J7040; J7042; J7050; J7070; J7120; J7121; J7999; Z7610; A9270; J1644

== ENCOUNTER → 2024-10-01 | Outpatient (CLI) | payer MEDICAID, SELFPAY ==
--- NOTE | 2024-10-01 14:51 | XR_ITS ---
Examination: MRI lumbar spine without contrast Date and time of exam: October 01, 2024 1642 hrs. Comparison May 21, 2024 Indications: Low back pain radiating to the leg 6 months Technique: Multiple MRI axial and sagittal sections lumbar spine. Sagittal T2-weighted images, TR 3500, TE 118 T1 weighted transverse sections, TR 688 T8.5, T2-weighted sagittal sections T1 weighted sagittal sections TR 621, TE 30 T2 axial sections, TR 4, 190, TE 84. Findings: Grade 2 spondylolisthesis L5 on S1 No lumbar fracture Disc desiccation and moderate narrowing L2-L3, L3-L4, L5-S1 Adequate marrow signal lumbar vertebral bodies L5-S1 grade 2 spondylolisthesis with 4 mm central lumbar disc bulge produces mild right L5 ganglionic compression L4-5 no disc protrusion L3-L4 partially extruded 5 mm right paracentral disc bulge which extends to the left intervertebral foramen with mild left L3 ganglionic compression L2-L3 small foraminal disc bulges L1-L2 no disc protrusion Impression: L5-S1 grade 2 spondylolisthesis, 4 mm central lumbar disc bulge with mild right L5 ganglionic compression L3-L4 partially extruded 5 mm right upper central disc bulge extending to the left foramen with mild left L3 ganglionic compression
== END | disposition home or self-care (01) ==
PROVIDERS: Referring Provider Family Medicine; Visit Provider Family Medicine
DX: M43.17 Spondylolisthesis, lumbosacral region (principal); G95.20 Unspecified cord compression; M51.27 Other intervertebral disc displacement, lumbosacral region
CPT/HCPCS: 72148

== ENCOUNTER 2025-02-02 01:45 | Inpatient (IN) | payer MEDICAID, SELFPAY ==
[2025-02-02] VITALS (9 sets, daily range): BP systolic 102–168; BP diastolic 66–90; PULSE 83–114; RESP 12–19; TEMP 36.2–37.4; O2SAT 95–98; BMI 36.4
--- NOTE | 2025-02-02 02:46 | XR_ITS ---
Examination: CT abdomen and pelvis without contrast. Coronal 3-D reconstructions. Sagittal 2-D reconstructions. Date and time of exam:February 02, 2025, 0349 hours, comparison May 06, 2024 INDICATIONS: Abdominal pain nausea vomiting beginning today. CTDI: vol (mGy): 11.61. DLP: (mGycm): 680. Technique: Axial images of the abdomen have been obtained, 3 mm slice thickness Intravenous contrast material has not been administered. Low dose protocols were performed. One or more of the following dose reduction techniques were used; automated exposure control, adjustment of the mA and/or KV according to patient size, use of iterative reconstruction technique. Findings: Diffuse fatty infiltration throughout the liver, absent gallbladder, no focal liver or splenic lesion No pancreatic edema Normal adrenal glands. No renal or ureteral calculi, no hydronephrosis Fatty infiltration in the colon seen with prior episodes of colitis No pericecal inflammatory change No bowel obstruction Fat-containing mass in the uterus, likely leiomyoma, Mild thickening of the urinary bladder wall Grade 1 spondylolisthesis L5 on S1 with advanced degenerative disc disease at the lower 3 lumbar levels IMPRESSION: Cystitis pattern. Consider pelvic sonography follow-up to assess uterine fundal mass
--- NOTE | 2025-02-02 02:47 | EKG_ITS ---
[facility] Test Date: 2025-02-02 Pat Name: KIM MCCAULEY Department: Room: - Gender: Female Aged Or Disabled Carer: : 1965 Requested By: Keisha Pringle Order Number: [id number] Reading MD: Keisha Pringle Measurements Intervals [place] Rate: 115 P: 34 SD: 136 QRS: -66 QRSD: 90 T: 58 QT: 325 QTc: 450 Interpretive Statements SINUS TACHYCARDIA PATTERN CONSISTENT WITH PULMONARY DISEASE LEFT ANTERIOR FASCICULAR BLOCK [QRS AXIS <= -45, QR IN I, RS IN II] MINIMAL ST DEPRESSION [0.025+ mV ST DEPRESSION] Compared to ECG 05/17/2024 16:53:21 Left anterior fascicular block now present ST (T wave) deviation now present Sinus rhythm no longer present /store/S0/[id number].pdf
--- NOTE | 2025-02-02 02:47 | PD.EDRME ---
Rapid Medical Screening Exam RME Arrival date/time: 02/02/25 01:45 This is a case of a 59-year-old female who came in in the emergency room due to nausea vomiting for 3 weeks worsening of the symptoms now with abdominal pain chest pain and shortness of breath this patient decided to start consult here in the emergency room Chief Complaint: Nausea/Vomiting/Diarrhea Time Seen by Provider: 02/02/25 02:46 Vital signs: Vital Signs Temperature 97.5 F 02/02/25 01:48 Pulse Rate 111 H 02/02/25 01:48 Respiratory Rate 16 02/02/25 01:48 Blood Pressure 110/81 02/02/25 01:48 Pulse Oximetry (%) 95 02/02/25 01:48 Oxygen Delivery Method Room Air 02/02/25 01:48
[2025-02-02] MEDS: ONDANSETRON INJ 2 MG/ML INJ 2 ML 4 MG IVP ×2 (03:19→07:52)
--- NOTE | 2025-02-02 03:20 | PD.EDNV ---
Nausea/Vomit./Diarrhea-RME/HPI General Chief complaint: Nausea/Vomiting/Diarrhea Stated complaint: NAUSEA/VOMITING Time Seen by Provider: 02/02/25 02:46 Arrival date/time: 02/02/25 01:45 RME / HPI RME / HPI Narrative: 02/02/25 01:45 This is a case of a 59-year-old female who came in in the emergency room due to nausea vomiting for 3 weeks worsening of the symptoms now with abdominal pain chest pain and shortness of breath this patient decided to start consult here in the emergency room DR. MEDRANO MAIN ED EVALUATION: 59 y/o female with Hx of Type II DM BIBA from home presents with vomiting x approximately 3 weeks. Patient also reports some mild epigastric abdominal tenderness. Patient states that the last time this occurred in 05/2024, she had her gall bladder removed. Denies diarrhea. No other concerns or complaints expressed at this time. Related Data Home Medications ?Medication ?Instructions ?Recorded ?Confirmed hydrochlorothiazide 25 mg tablet 25 mg PO QAM 03/25/24 04/18/24 Held on 06/10/24. Instructions: re evaluate with PCP lovastatin 40 mg tablet 40 mg PO QDAY 03/25/24 04/18/24 Previous Rx's ?Medication ?Instructions ?Recorded alcohol swabs (Alcohol Prep Pads) See Rx Instructions .Route 03/31/24 .COMPLEX #200 ea lancets 28 gauge #100 ea 03/31/24 blood sugar diagnostic (FreeStyle #100 ea 04/02/24 Lite Strips) blood-glucose meter (FreeStyle #1 ea 04/02/24 Lite Meter kit) lancets 28 gauge (FreeStyle #100 ea 04/02/24 Lancets) pen needle, diabetic 29 gauge x #100 ea 04/02/24 1/2 (Ultra-Thin II Insulin Pen Petoskey) scopolamine base 1 mg over 3 days 1 patch transdermal Q3D PRN nausea 04/09/24 transdermal patch #4 ea sucralfate 100 mg/mL oral 10 ml PO BID #300 mL 04/11/24 suspension (Carafate) acetaminophen 300 mg-codeine 30 mg 2 tab PO TID PRN pain #20 tabs 05/06/24 tablet insulin lispro 100 unit/mL 1 sliding scale dose subcut 06/10/24 subcutaneous pen USEASDIRECTD #15 mL Allergies Allergy/AdvReac Type Severity Reaction Status Date / Time No Known Allergies Allergy Verified 02/02/25 01:56 Review of Systems Review of Systems Systems Reviewed: All systems reviewed, normal except as documented Past Medical History Past Medical History CARDIAC: Positive Hypercholesterolemia and Hypertension GASTROINTESTINAL: Positive Gall Bladder Disease MUSCULOSKELETAL: Positive Rheumatoid Arthritis ENDOCRINE: Positive Diabetes Mellitus Type 2 and Hypothyroidism HEMATOLOGIC: Positive Anemia Surgical History SURGICAL: Positive Hx Cholecystectomy ED Exam Narrative Physical exam: Generally patient is tachypneic and ill-appearing, heart regular rate and rhythm, lungs clear to auscultation equal bilaterally, abdomen soft bowel sounds present nondistended epigastric abdominal tenderness without rebound, skin is warm pale and dry, neurologic exam no focal motor or sensory deficits cranial nerves II through XII grossly intact Course Quality Measures none Orders Category Date Time Status EKG (ED ONLY) *Do not use* NOW Care 02/02/25 02:[address] abdomen pelvis wo con Stat Exams 02/02/25 02:46 Taken EKG (ED Only) Stat Exams 02/02/25 02:47 Draft BNP [B-Type Natriuretic Peptide] Stat Lab 02/02/25 03:10 Completed Beta Hydroxybutyrate Stat Lab 02/02/25 04:54 Ordered CBC Stat Lab 02/02/25 03:10 Completed Comprehensive Metabolic Panel Stat Lab 02/02/25 03:10 Completed Lactic Acid [Lactate (Lactic Acid)] Stat Lab 02/02/25 04:38 Completed Lipase Stat Lab 02/02/25 03:10 Completed Troponin I Stat Lab 02/02/25 03:10 Completed Urinalysis Stat Lab 02/02/25 04:45 Received Ondansetron Inj [Zofran Inj] Med 02/02/25 02:46 Discontinued 4 mg IVP X1 ONE Potassium Chloride [K-Dur] Med 02/02/25 04:00 Discontinued 60 meq PO X1 ONE Sodium Chloride 0.9% 1000 ml [Ns] 1,000 ml Med 02/02/25 03:10 Discontinued IV 999 mls/hr Sodium Chloride 0.9% 1000 ml [Ns] 1,000 ml Med 02/02/25 03:58 Active IV 999 mls/hr Sodium Chloride 0.9% 250 ml [Ns] 250 ml Med 02/02/25 02:46 Discontinued IV 999 mls/hr Vital Signs Vital signs: Vital Signs Temperature 97.5 F 02/02/25 01:48 Pulse Rate 111 H 02/02/25 01:48 Respiratory Rate 16 02/02/25 01:48 Blood Pressure 110/81 02/02/25 01:48 Pulse Oximetry (%) 95 02/02/25 01:48 Oxygen Delivery Method Room Air 02/02/25 01:48 Nausea/Vomiting/Diarrhea MDM Narrative MDM Narrative:: Scribe Attestation: IAlmita, am scribing for and in the presence of Dr. Medrano. Provider Notation: Although this document has been carefully reviewed, there may still be some phonetic and other typographical errors. These errors are purely grammatical due to imperfections in the software program and should not be construed in any way to? compromise the substance of the patient's medical care during this visit. I interpreted all labs. Patient has an increased anion gap metabolic acidosis. Blood sugar is 115. Lactic acid is 1.2. CT scan done of the abdomen pelvis with IV contrast showed no obvious acute pathology. When I questioned the patient about alcohol intake she states that she drinks approximately twice a week. I added on a beta hydroxybutyrate. Patient may have a alcoholic ketoacidosis. Patient is being hydrated with 2 L of IV normal saline. I discussed this case with the hospitalist and the patient will be admitted to the hospital for further treatment and evaluation for her vomiting with possible alcoholic ketoacidosis. I did investigate the patient's past medical history in the computer and it has been documented in the past that the patient has had multiple episodes of dehydration and possible gastroparesis. Patient's potassium was 2.9 so the patient received 60 mill equivalents of potassium chloride p.o. Patient data External records reviewed:: [facility] previous records (Reviewed prior ED records from 05/14/24. Patient was seen for Dehydration.) and EMS form Clinical information provided by:: patient and EMS Social determinants that could affect healthcare access:: none Patient has the following chronic illnesses:: Hypertension, Gall Bladder Disease, Rheumatoid Arthritis, Diabetes Mellitus Type 2, Hypothyroidism, Anemia How is presenting disease/condition affected by chronic disease/condition?: exacerbated by Evaluation data The following diagnostics were reviewed and interpreted by me:: lab results, radiology exam(s) and EKG tracing(s) Lab and/or radiology exams considered but not ordered:: None Interpretation Summary: RADIOLOGY Abdomen/Pelvis CT: Findings: Fatty infiltration of the liver is noted. The gallbladder is surgically absent. No evidence of renal/ureteric calculus or hydroureteronephrosis. The pancreas, spleen and adrenals are unremarkable on this noncontrast study. There is submucosal fatty infiltration in the ascending and proximal transverse colon, which may represent sequela of prior colitis; possibility of subtle acute component cannot be excluded. No evidence of bowel obstruction. The appendix is not visualized. The urinary bladder is partially distended and shows mild wall thickening; possibility of cystitis cannot be excluded. There is a 3.5 x 2.9 cm heterogeneous density containing fat in the uterus, which may represent a lipoleiomyoma. There is no free fluid or free air. Degenerative changes are identified in the spine. 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 There is grade I anterolisthesis of L5 over S1. Bibasilar atelectasis is seen. Please note that evaluation of soft tissue/vascular structures and bowel loops is limited due to absence of IV and oral contrast. Impression: 1. No evidence of acute pancreatitis. 2. Submucosal fatty infiltration in the ascending and proximal transverse colon, which may represent sequela of prior colitis; possibility of subtle acute component cannot be excluded. 3. No evidence of renal/ureteric calculus or hydroureteronephrosis. 4. Partially distended urinary bladder with mild wall thickening; possibility of cystitis cannot be excluded. 5. Heterogeneous density containing fat in the uterus, which may represent a lipoleiomyoma. 6. Other findings as described above. Suggest correlation with clinical findings, comparison with prior studies and follow up accordingly. Medications / Prescriptions Medications / Prescriptions considered but not ordered:: None Medication administrations:: Medication Administration History Sodium Chloride (Ns) 1,000 mls @ 999 mls/hr IV .Q1H1M ONE Stop: 02/02/25 04:58 Last Admin: 02/02/25 04:12 Dose: 999 mls/hr Documented By: ISAC Discontinued Medications Sodium Chloride (Ns) 250 mls @ 999 mls/hr IV .Q16M ONE Stop: 02/02/25 03:01 Last Admin: 02/02/25 03:17 Dose: Not Given Documented By: CE Non-Admin Reason: Cancelled by Provider Sodium Chloride (Ns) 1,000 mls @ 999 mls/hr IV .Q1H1M ONE Stop: 02/02/25 04:10 Last Admin: 02/02/25 03:22 Dose: 999 mls/hr Documented By: CE Ondansetron HCl (Ondansetron Inj 2 Mg/Ml Inj 2 Ml) 4 mg IVP X1 ONE; Protocol Stop: 02/02/25 02:47 Last Admin: 02/02/25 03:19 Dose: 4 mg Documented By: CE Potassium Chloride (Potassium Chloride 20 Meq Tabcr) 60 meq PO X1 ONE Stop: 02/02/25 04:01 Last Admin: 02/02/25 04:10 Dose: 60 meq Documented By: ISAC See above Consultations Consultation(s) initiated? (list below): No Diagnosis Nausea Differential Diagnosis: traveler's diarrhea, food poisoning, gastroenteritis, clostridium difficile infection, drug-induced nausea and vomiting and dehydration Most likely diagnosis given after review of the tests above:: none Admission Indicated Admission indicated?: not indicated Explain why admission is indicated or not indicated:: Patient does not meet admission criteria Admission Request Was there a request for admission?: No Disposition Plan Disposition Plan: Discharge Discharge Attestation Discharge Attestation: The patient and all family members were given an opportunity to ask questions and understood the discharge instructions. Discharge instructions specifically effects, indications for sooner follow up or return to the emergency department, and the expected course of current diagnosis. Patient condition: Stable Discharge Plan Plan Patient Disposition: Admit Acute Care w/in Hospital Prescriptions/Referrals Prescriptions/Med Rec: No Action (DME) blood-glucose meter [FreeStyle Lite Meter] Kit See Rx Instructions .Route Qty: 1 0RF Rx Instructions: As directed (DME) lancets [FreeStyle Lancets] 28 gauge misc See Rx Instructions .Route Qty: 100 0RF Rx Instructions: As directed (DME) FreeStyle Lite Strips Strip See Rx Instructions .Route Qty: 100 0RF Rx Instructions: As directed (DME) pen needle, diabetic [Ultra-Thin II Ins Pen Petoskey] 29 gauge x 1/2 needle See Rx Instructions .Route Qty: 100 0RF Rx Instructions: As directed scopolamine base 1 mg over 3 days patch 3 day 1 patch transdermal Q3D PRN (Reason: nausea) Qty: 4 0RF Rx Instructions: May causes sedation, Avoid driving or other activities requiring alertness. lovastatin 40 mg Tablet 40 mg PO QDAY hydrochlorothiazide 25 mg Tablet 25 mg PO QAM alcohol swabs [Alcohol Prep Pads] Pads, Medicated See Rx Instructions .ROUTE .COMPLEX Qty: 200 0RF Rx Instructions: Apply before injections or glucose check. (DME) lancets 28 gauge misc See Rx Instructions .Route Qty: 100 0RF Rx Instructions: As directed sucralfate [Carafate] 100 mg/mL suspension 10 ml PO BID Qty: 300 0RF acetaminophen-codeine 300-30 mg tablet 2 tab PO TID MDD 6 PRN (Reason: pain) Qty: 20 0RF insulin lispro 100 unit/mL insulin pen 1 sliding scale dose subcut USEASDIRECTD Qty: 15 0RF Referrals: Miah Coles MD [Primary Care Provider] - In 1 week Problem List Clinical Impression: Alcoholic ketoacidosis, Hypokalemia, Diabetic gastroparesis Patient/Caregiver Discharge Instructions Print Language: Hungarian Stand Alone Forms: Stacie Award Info., Patient Portal Info Letter
[2025-02-02 03:22] LABS: Basophils # (Auto) 0.1 Thou/mm3 (0.0-0.2); Basophils % (Auto) 1 % (0-2.5); Eosinophils # (Auto) 0.1 Thou/mm3 (0.0-0.5); Eosinophils % (Auto) 1 % (0-10); Hematocrit 43.8 % (36.0-46.0); Hemoglobin 15.1 g/dL (12.0-16.0); Immature Granulocytes Auto 0.02 Thou/mm3 (0.00-0.00); Lymphocytes # (Auto) 1.6 Thou/mm3 (1.0-4.8); Lymphocytes % (Auto) 24 % (10-50); Mean Corpuscular HGB Conc 34.5 g/dl (31.0-37.0); Mean Corpuscular Hemoglobin 28.0 pg (25.0-35.0); Mean Corpuscular Volume 81 fL (80-100); Monocytes # (Auto) 1.1 Thou/mm3 (0.0-0.8); Monocytes % (Auto) 17 % (0-12); Neutrophils # (Auto) 3.8 Thou/mm3 (1.8-7.7); Neutrophils % (Auto) 57 % (37-80); Nucleated Red Blood Cell # 0.00 Thou/mm3 (0.00-0.00); Nucleated Red Blood Cell % 0 /100 WBC (0); Platelet Count 314 Thou/mm3 (140-440); RDW Standard Deviation 44.3 fL (36.4-46.3); Red Blood Count 5.40 Miln/mm3 (4.00-5.20); White Blood Count 6.6 Thou/mm3 (3.6-11.0)
[2025-02-02] MEDS: SODIUM CHLORIDE 0.9% 1000 ML 1,000 ML 999 ML IV ×2 (03:22→04:12)
[2025-02-02 03:42] LABS: Alanine Aminotransferase 20 U/L (10-49); Albumin, Serum 4.3 gm/dL (3.5-5.0); Albumin/Globulin Ratio 1.4 (1.2-2.2); Alkaline Phosphatase 50 U/L (46-116); Anion Gap 21 (7-16); Aspartate Amino Transferase 27 U/L (0-34); BUN/Creatinine Ratio 5 Ratio (12-20); Bilirubin,Total 0.6 mg/dL (0.3-1.2); Blood Urea Nitrogen 5 mg/dL (9-23); Calcium 12.1 mg/dL (8.3-10.6); Calcium (Corrected) 12.1 mg/dL (8.5-10.1); Carbon Dioxide 15.8 mMol/L (20.0-31.0); Chloride 98 mMol/L (98-107); Creatinine (Component) 1.0 mg/dL (0.6-1.3); Estimated Creatinine Clearance 70.7 mL/min (>60); Globulin 3.0 gm/dL (2.3-3.5); Glucose 115 mg/dL (74-106); Lipase 55 U/L (12-53); Osmolality,Calculated 268 (275-295); Potassium 2.9 mMol/L (3.4-5.1); Sodium 135 mMol/L (136-145); Total Protein 7.3 gm/dL (5.7-8.2); Troponin I < 0.020 ng/mL (0.0-0.045); eGFR > 60 See Note
[2025-02-02 03:43] LABS: B-Type Natriuretic Peptide < 20 pg/mL (0-100)
--- NOTE | 2025-02-02 04:30 | PRELIM_ITS ---
CT scan of the abdomen and pelvis without intravenous contrast (axial sections with sagittal and coronal reformats) February 02, 2025 at 0349 hours Clinical History: Abdominal pain. Comparison: No prior study is available for comparison. Findings: Fatty infiltration of the liver is noted. The gallbladder is surgically absent. No evidence of renal/ureteric calculus or hydroureteronephrosis. The pancreas, spleen and adrenals are unremarkable on this noncontrast study. There is submucosal fatty infiltration in the ascending and proximal transverse colon, which may represent sequela of prior colitis; possibility of subtle acute component cannot be excluded. No evidence of bowel obstruction. The appendix is not visualized. The urinary bladder is partially distended and shows mild wall thickening; possibility of cystitis cannot be excluded. There is a 3.5 x 2.9 cm heterogeneous density containing fat in the uterus, which may represent a lipoleiomyoma. There is no free fluid or free air. Degenerative changes are identified in the spine. 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 There is grade I anterolisthesis of L5 over S1. Bibasilar atelectasis is seen. Please note that evaluation of soft tissue/vascular structures and bowel loops is limited due to absence of IV and oral contrast. Impression: 1. No evidence of acute pancreatitis. 2. Submucosal fatty infiltration in the ascending and proximal transverse colon, which may represent sequela of prior colitis; possibility of subtle acute component cannot be excluded. 3. No evidence of renal/ureteric calculus or hydroureteronephrosis. 4. Partially distended urinary bladder with mild wall thickening; possibility of cystitis cannot be excluded. 5. Heterogeneous density containing fat in the uterus, which may represent a lipoleiomyoma. 6. Other findings as described above. Suggest correlation with clinical findings, comparison with prior studies and follow up accordingly. Report Electronically Signed By: Chavo Khanna 02/02/2025 4:29:58 AM [EST]
[2025-02-02 04:42] LABS: Lactate (Lactic Acid) 1.2 mMol/L (0.4-2.0)
[2025-02-02 04:49] LABS: Collection Type, Urine Clean Catch
[2025-02-02 05:03] LABS: Bacteria,Urine Rare; Bilirubin,Urine 1+ (Negative); Blood,Urine Trace (Negative); Clarity,Urine Clear (Clear/Hazy); Color,Urine Lt-Yellow (Lt Yel-Yel); Glucose, Urine Negative (Negative); Hyaline Casts,Urine 2 /hpf (0-1); Ketones,Urine 4+ (Negative); Leukocyte Esterase,Urine Positive (Negative); Nitrite,Urine Negative (Negative); PH,Urine 6.0 (5.0-7.0); Protein,Urine 1+ (Neg - Trace); RBC,Urine 7 /hpf (0-3); Specific Gravity,Urine 1.018 (1.001-1.035); Squamous Epithelial Cell,Urine 9 /hpf (0-5); Urobilinogen,Urine 3.0 mg/dL (0.0-1.0); WBC,Urine 7 /hpf (0-5)
[2025-02-02 05:10] LABS: Beta Hydroxybutyrate > 6.4 mmol/L (<0.6)
--- NOTE | 2025-02-02 05:34 | ESHP_ITS ---
Documentation for date of: 02/02/25 HPI History of Present Illness Chief complaint: Intractable nausea/vomiting History of present illness: 59 y/o F with PMHx significant for insulin dependent diabetes, hypertension, hypothyroidism, rheumatoid arthritis presents with chief complaint of intractable nausea/vomiting x 3 weeks. Patient reports that she has developed nausea and vomiting, 10?50 episodes per day, typically yellow or green in color without signs of bleeding. Patient has had very poor intake of solid food during this time, recently is becoming tolerant of liquids as well. Patient ports having similar symptoms 1 time in the past, when she was diagnosed with cholecystitis, had a cholecystectomy. Patient Dors is mild epigastric pain, chronic back pain. Patient also endorses chills during this time. Patient denies fevers, chest pain, shortness of breath, dysuria, constipation, diarrhea. ED COURSE: Labs significant for: WBC 6.6, potassium 2.9, serum bicarb 15.8, anion gap 21, glucose 115, lipase 55,. ABG shows pH 7.39, pCO2 28, PO2 43. Imaging significant for: CT A/P showed nonspecific findings of fatty infiltration of the colon, mild distention of bladder. Patient mildly tachycardic in the ED. Patient given Zofran, 2 L bolus normal saline, 60 mEq potassium in the ED. PMH: Hypertension, diabetes, hypothyroidism, rheumatoid arthritis PSH: Cholecystectomy, left cataract surgery, left ankle fracture repair, left knee repair, right shoulder repair x 2 SH: Denies tobacco use. Reports drinking 1?2 beers per week. Reports taking 1 CBD gummy daily for back pain. Allergies:?NKDA Medications: Levothyroxine, insulin, lovastatin, Enbrel Review of Systems Review of Systems Systems Reviewed: All systems reviewed, normal except as documented Past Medical History Past Medical History Comments PMH COMMENT: PMH: Hypertension, diabetes, hypothyroidism, rheumatoid arthritis PSH: Cholecystectomy, left cataract surgery, left ankle fracture repair, left knee repair, right shoulder repair x 2 SH: Denies tobacco use. Reports drinking 1?2 beers per week. Reports taking 1 CBD gummy daily for back pain. Allergies:?NKDA Medications: Levothyroxine, insulin, lovastatin, Enbrel Exam Vital Signs Temp Pulse Resp BP Pulse Ox O2 Del Method 99.1 F 100 16 145/90 H 98 Room Air 02/02/25 04:10 02/02/25 04:10 02/02/25 04:10 02/02/25 04:10 02/02/25 04:10 02/02/25 04:10 Narrative Exam PE: Gen: Well-developed and well-nourished. Lethargic. HEENT: NCAT, PERRLA, EOMI, anicteric conjunctivae. Dry mucous membranes. CVS: normal S1 and S2. RRR. No M/R/G. Resp: CTA B/L. No rhonchi, rales, crackles or wheezing. Abd: soft, non-distended. BS+ in all 4 quadrants. Mild epigastric tenderness. MSK: Good ROM in BUE & BLE. No edema or rash. Neuro: CN II-XII grossly intact. Strength 5/5 in BUE & BLE. Alert and oriented x3. Slowed speech. Psych: appropriate mood and affect. Results: Labs 02/02/25 03:10 02/02/25 03:10 Labs: Short CBC 02/02/25 Range/Units 03:10 WBC 6.6 (3.6-11.0) Thou/mm3 Hgb 15.1 (12.0-16.0) g/dL Hct 43.8 (36.0-46.0) % Plt Count 314 (140-440) Thou/mm3 BMP 02/02/25 03:10 Sodium 135 L Potassium 2.9 L Chloride 98 Carbon Dioxide 15.8 L BUN 5 L Creatinine 1.0 Glucose 115 H Calcium 12.1 H Cardiac Enzymes 02/02/25 Range/Units 03:10 Troponin I < 0.020 (0.0-0.045) ng/mL Liver Function 02/02/25 Range/Units 03:10 Total Bilirubin 0.6 (0.3-1.2) mg/dL AST 27 (0-34) U/L ALT 20 (10-49) U/L Alkaline Phosphatase 50 (46-116) U/L Albumin 4.3 (3.5-5.0) gm/dL Urine 02/02/25 Range/Units 04:45 Urine Color Lt-Yellow (Lt Yel-Yel) Urine Clarity Clear (Clear/Hazy) Urine pH 6.0 (5.0-7.0) Ur Specific [place] 1.018 (1.001-1.035) Urine Protein 1+ A (Neg - Trace) Urine Glucose (UA) Negative (Negative) Quality Measures Quality Measures VTE prophylaxis Medications Home Medications and Allergies Home Medications ?Medication ?Instructions ?Recorded ?Confirmed ?Type hydrochlorothiazide 25 mg tablet 25 mg PO QAM 03/25/24 04/18/24 History Held on 06/10/24. Instructions: re evaluate with PCP lovastatin 40 mg tablet 40 mg PO QDAY 03/25/2404/18 History Allergies Allergy/AdvReac Type Severity Reaction Status Date / Time No Known Allergies Allergy Verified 02/02/25 01:56 Visit Medications Acetaminophen (Acetaminophen 325 Mg Tablet) 650 mg PO Q6H PRN PRN Reason: Fever >100.4 or pain Stop: 03/04/25 05:25 Dextrose (Dextrose 50%-Water Inj 50 Ml Syringe) 25 ml IV Q15MIN PRN PRN Reason: BG 50-70 responsive npo pt Stop: 03/04/25 05:25 Dextrose (Dextrose 50%-Water Inj 50 Ml Syringe) 50 ml IV Q15MIN PRN PRN Reason: BG <50 OR BG <70 & pt unresponsive Stop: 03/04/25 05:25 Enoxaparin Sodium (Enoxaparin Sod Inj 40 Mg/0.4 Ml Syringe) 40 mg SC QDAY MEGAN Stop: 02/16/25 08:59 Glucagon (Glucagon Inj 1 Mg Vial) 1 mg IM Q15MIN PRN PRN Reason: BG <70, and no IV access Lactated Ringer's (Lactated Ringers) 1,000 mls @ 75 mls/hr IV .[id number] [facility] Stop: 02/03/25 08:09 Insulin Human Lispro (Insulin Lispro (Admelog) 1 Unit/0.01 Ml Unit) 0 unit SC AC [facility]; Protocol Stop: 03/04/25 07:29 Ondansetron HCl (Ondansetron Inj 2 Mg/Ml Inj 2 Ml) 4 mg IVP Q6H PRN; Protocol PRN Reason: NAUSEA OR VOMITING Stop: 03/04/25 05:25 Tramadol HCl (Tramadol Hcl 50 Mg Tablet) 50 mg PO Q6HR PRN PRN Reason: PAIN SCALE 4-10(Mod-Sev Stop: 02/07/25 05:25 Discontinued Medications Sodium Chloride (Ns) 250 mls @ 999 mls/hr IV .Q16M ONE Stop: 02/02/25 03:01 Last Admin: 02/02/25 03:17 Dose: Not Given Sodium Chloride (Ns) 1,000 mls @ 999 mls/hr IV .Q1H1M ONE Stop: 02/02/25 04:10 Last Admin: 02/02/25 03:22 Dose: 999 mls/hr Sodium Chloride (Ns) 1,000 mls @ 999 mls/hr IV .Q1H1M ONE Stop: 02/02/25 04:58 Last Admin: 02/02/25 04:12 Dose: 999 mls/hr Ondansetron HCl (Ondansetron Inj 2 Mg/Ml Inj 2 Ml) 4 mg IVP X1 ONE; Protocol Stop: 02/02/25 02:47 Last Admin: 02/02/25 03:19 Dose: 4 mg Potassium Chloride (Potassium Chloride 20 Meq Tabcr) 60 meq PO X1 ONE Stop: 02/02/25 04:01 Last Admin: 02/02/25 04:10 Dose: 60 meq Assessment & Plan Plan 59 y/o F with PMHx significant for insulin dependent diabetes, hypertension, hypothyroidism, rheumatoid arthritis presents with chief complaint of intractable nausea/vomiting x 3 weeks, admitted for intractable nausea/vomiting. #Intractable nausea/vomiting Patient reports intractable nausea and vomiting for the past 3 weeks, denies 50 episodes per day, typically yellow or dark green. No signs of hematemesis. Patient is also had poor p.o. intake during this time, only able to tolerate fluids. Differential includes gastroparesis secondary to diabetes, hypothyroidism, infection. Patient received 2 L bolus normal saline in the ED. - GI consulted, appreciate recommendations - TSH, A1c, free T4 ordered, follow-up - IVF: LR at 100 mL/h x 2 L - Zofran 4 mg IV every 6 hours as needed #High anion gap metabolic acidosis Patient presented with serum bicarb 15.8, anion gap 21. ABG showed pH 7.39, pCO2 28. Glucose 115. Suspect starvation ketosis in the setting of poor p.o. intake x 3 weeks due to intractable nausea/vomiting. - Treat nausea/vomiting as above - Monitor and replete electrolytes as needed #Hypercalcemia Patient presented with corrected calcium 12.1. Received 2 L bolus normal saline in the ED. - IVF as above - Monitor calcium #Insulin-dependent diabetes Patient with history of diabetes, takes insulin as needed. Does not take any other diabetic medications. A1c approximately 6% per patient. - ISS - A1c ordered #HTN #Hypothyroidism #Rheumatoid arthritis Patient history as stated. Med rec's pending. - Resume home meds when appropriate DVT prophylaxis: Lovenox GI prophylaxis: None Diet: Diabetic clear liquid diet Lines: Peripheral IV Code status: Full code Plan of care discussed with attending Dr. Frazier. Evgeny Mishra MD PGY?2 Attending Provider Attestation/Addendum I have examined the patient, reviewed labs and imaging findings, discussed the case with the resident(s), and reviewed entered orders. I agree with the plan of care as outlined in this note, with these additional summaries/recommendations: After examination of the patient and review of the clinical data, I feel that this patient needs admission to the hospital for further treatment and evaluation. Patient is a 59-year-old female with a medical history of insulin-dependent diabetes mellitus type 2, primary hypertension, hyperlipidemia, obesity, and previous cholecystectomy presents to [facility] emergency department on 02/02/2025 with chief complaint of intractable nausea and vomiting. Patient seen at bedside. She endorses intractable nausea and vomiting for the last 3 weeks. She reports little to no oral intake including liquids in the last 3 weeks. Patient diagnosed with intractable nausea and vomiting, anion gap metabolic acidosis most likely secondary to starvation ketosis, hypokalemia, and hypercalcemia. Order BHB & VBG. At this time I suspect patient's symptoms may be related to gastroparesis. Low suspicion for gastric outlet obstruction. We will consult gastroenterology and patient will likely need gastric emptying study. We will attempt to avoid prokinetic agents and hyperglycemia which can alter gastric emptying study results. Start IV Zofran. Patient given potassium replacement and follow-up repeat. Hypercalcemia present most likely secondary to dehydration. Start IV fluids and monitor for improvement. Start insulin sliding scale for diabetes mellitus type 2 with Accu-Cheks. Target blood sugar of 140-180 while hospitalized. Resume home antihypertensives as able. Patient updated on the plan and in agreement. All questions answered to satisfaction. Please see residents note for additional details and management. Dr. Freddie MD
[2025-02-02 07:01] LABS: Glucose Estimated Average 123 mg/dL (80-131); Hemoglobin A1C 5.9 % Hgb (4.8-6.0)
[2025-02-02 07:04] LABS: Free T4 (Free Thyroxine) 0.99 ng/dL (0.89-1.76); Magnesium 1.4 mg/dL (1.6-2.6); Phosphorous 2.8 mg/dL (2.4-5.1); Thyroid Stimulating Hormone 0.03 uIU/mL (0.55-4.78)
[2025-02-02] MEDS: POTASSIUM CHL 10 mEq IVPB 10 MEQ/100 ML BAG 100 MEQ IV ×4 (07:53→11:10)
[2025-02-02] MEDS: Magnesium Sulfate 4 GM Ivpb 4 GM/50 ML BAG IV (07:54)
[2025-02-02] MEDS: THIAMINE INJ 100 MG/ML VIAL 2 ML IVP (09:01)
[2025-02-02] MEDS: ENOXAPARIN SOD INJ 40 MG/0.4 ML SYRINGE SC (09:01)
--- NOTE | 2025-02-02 10:38 | XR_ITS ---
Examination: Abdomen sonogram, complete Date and time of exam: February 02, 2025, 1522 hours INDICATIONS: Abdominal pain beginning January 10, 2025. Technique: Multiple real-time grayscale transabdominal sonographic images of the abdomen have been obtained. Findings: Absent gallbladder Common bile duct 0.6 cm Pancreatic head 2.6 cm Aorta not enlarged. Liver 16.6 cm fatty infiltration Normal hepatopedal portal venous flow Patent IVC Right kidney 9.7 cm renal cortex 1.2 cm Left kidney 9.9 cm renal cortex 1.2 cm Spleen not enlarged IMPRESSION: Absent gallbladder. No common bile duct stones Mild hepatomegaly fatty infiltration no focal liver lesions.
[2025-02-02] MEDS: MEGESTROL ACET 20 MG TABLET 40 MG PO (11:07)
[2025-02-02] MEDS: DEXTROSE 5%-LACTATED RINGERS 1,000 ML 75 ML IV (11:14)
--- NOTE | 2025-02-02 13:20 | ESPR_ITS ---
<Statement entered by Иван Boland MD - 02/02/25 14:45> Patient was seen and examined at bedside. She reported that since the first day of January she has cyclic episodes of nausea and vomiting that kept worsening. For the past week she was unable to meet her daily food requirement. Recently she started to have difficulty drinking. Patient denied any fever or chills, denied any abdominal pain or diarrhea. She was complaining of mild abdominal tenderness specially on the right upper quadrant. However she denied any jaundice skin rash, or urinary tract symptoms. During her previous admission gastric emptying study was normal, she was found to have biliary dyskinesia and was she had cholecystectomy done. At this time will start the patient on half maintenance IV fluids 75 mL of D5 LR, will start introduce feeding slowly. Will continue the patient on Zofran, will tightly control her blood sugar, I will start the patient on amitriptyline, Megasterol, as it these meds helped during her last admission repeat liver ultrasound and follow-up on the GI recommendations. We started the patient on folic acid, vitamin B12, and consulted registered dietitian. - Patient's plan and care discussed with my attending, Dr. Elizabeth Boland MD Internal Medicine PGY-3 Documentation for date of: 02/02/25 Subjective Subjective Interval history: Patient examined bedside. Confirms initial report of 3 weeks of intractable NV with decreased ability to consume solid foods. Her vomitus has been yellow green without signs of blood. She reports similar symptoms 1 year ago that resolved following a cholecystectomy. Today she reports ongoing mid epigastric pain, chronic back pain, and some chills. Denies chest pain, dysuria, diarrhea, constipation, fevers night sweats. She has not been able to take any of her home meds recently due to the NV, this includes her thyroid medications. She has taken cannabis gummies the last 3 months to help her with her back pain. Exam Vital Signs Temp Pulse Resp BP Pulse Ox O2 Del Method 97.5 F 96 17 137/75 H 95 Room Air 02/02/25 07:45 02/02/25 07:45 02/02/25 07:45 02/02/25 07:45 02/02/25 07:45 02/02/25 07:45 Narrative Exam PE: Gen: Well-developed and well-nourished. Lethargic, hoarse. HEENT: NCAT, PERRLA, EOMI, anicteric conjunctivae. Dry mucous membranes. CVS: Tachycardic, normal S1 and S2. No M/R/G. Resp: CTA B/L. No rhonchi, rales, crackles or wheezing. Abd: soft, non-distended. BS+ in all 4 quadrants. Mild diffuse epigastric tenderness, most heightened in the LLQ. MSK: Good ROM in BUE & BLE. No edema or rash. Neuro: CN II-XII grossly intact. Strength 5/5 in BUE & BLE. Alert and oriented x3. Slowed speech. Psych: appropriate mood and affect. Objective Labs 02/02/25 03:10 02/02/25 03:10 Labs: Laboratory Results - last 24 hr 02/02/25 02/02/25 02/02/25 03:10 04:38 04:45 WBC 6.6 RBC 5.40 H Hgb 15.1 Hct 43.8 MCV 81 MCH 28.0 MCHC 34.5 RDW Std Deviation 44.3 Plt Count 314 Neut % (Auto) 57 Lymph % (Auto) 24 [place] % (Auto) 17 H Eos % (Auto) 1 Baso % (Auto) 1 Neut # (Auto) 3.8 Lymph # (Auto) 1.6 [place] # (Auto) 1.1 H Eos # (Auto) 0.1 Baso # (Auto) 0.1 Immature Gran # (Auto) 0.02 H Absolute Nucleated RBC 0.00 Immature Gran % 0 Nucleated RBC % 0 Sodium 135 L Potassium 2.9 L Chloride 98 Carbon Dioxide 15.8 L Anion Gap 21 H BUN 5 L Creatinine 1.0 Estim Creat Clear Calc 70.7 eGFR > 60 BUN/Creatinine Ratio 5 L Glucose [address] Glu mg/dL Hemoglobin A1c Calculated Osmolality 268 L Lactic Acid 1.2 Calcium 12.1 H Corrected Calcium 12.1 H Phosphorus Magnesium Total Bilirubin 0.6 AST 27 ALT 20 Alkaline Phosphatase 50 Troponin I < 0.020 B-Natriuretic Peptide < 20 Total Protein 7.3 Albumin 4.3 Globulin 3.0 Albumin/Globulin Ratio 1.4 Lipase 55 H Beta-Hydroxybutyrate/Acetoacetate TSH Free T4 Ur Collection Type Clean Catch Urine Color Lt-Yellow Urine Clarity Clear Urine pH 6.0 Ur Specific [place] 1.018 Urine Protein 1+ A Urine Glucose (UA) Negative Urine Ketones 4+ A Urine Blood Trace Urine Nitrite Negative Urine Bilirubin 1+ A Urine Urobilinogen (Auto) 3.0 Ur Leukocyte Esterase Positive Urine RBC 7 H Urine WBC 7 H Ur Squamous Epith Cells 9 H Urine Bacteria Rare Hyaline Casts 2 H 02/02/25 02/02/25 04:54 06:13 WBC RBC Hgb Hct MCV MCH MCHC RDW Std Deviation Plt Count Neut % (Auto) Lymph % (Auto) [place] % (Auto) Eos % (Auto) Baso % (Auto) Neut # (Auto) Lymph # (Auto) [place] # (Auto) Eos # (Auto) Baso # (Auto) Immature Gran # (Auto) Absolute Nucleated RBC Immature Gran % Nucleated RBC % Sodium Potassium Chloride Carbon Dioxide Anion Gap BUN Creatinine Estim Creat Clear Calc eGFR BUN/Creatinine Ratio Glucose Estimated Ave Glu mg/dL 123 Hemoglobin A1c 5.9 Calculated Osmolality Lactic Acid Calcium Corrected Calcium Phosphorus 2.8 Magnesium 1.4 L Total Bilirubin AST ALT Alkaline Phosphatase Troponin I B-Natriuretic Peptide Total Protein Albumin Globulin Albumin/Globulin Ratio Lipase Beta-Hydroxybutyrate/Acetoacetate > 6.4 H TSH 0.03 L* Free T4 0.99 Ur Collection Type Urine Color Urine Clarity Urine pH Ur Specific [place] Urine Protein Urine Glucose (UA) Urine Ketones Urine Blood Urine Nitrite Urine Bilirubin Urine Urobilinogen (Auto) Ur Leukocyte Esterase Urine RBC Urine WBC Ur Squamous Epith Cells Urine Bacteria Hyaline Casts Quality Measures Quality Measures VTE prophylaxis Assessment & Plan Assessment Current Active Medications: Generic Name Dose Route Start Last Admin Trade Name Freq PRN Reason Stop Dose Admin Acetaminophen 650 mg 02/02/25 05:26 Acetaminophen 325 Mg Tablet PO 03/04/25 05:25 Q6H PRN Fever >100.4 or pain 1-3 Amitriptyline HCl 25 mg 02/02/25 21:00 Amitriptyline Hcl 25 Mg Tablet PO 03/04/25 20:59 HS MEGAN Dextrose 25 ml 02/02/25 05:26 Dextrose 50%-Water Inj 50 Ml Syringe IV 03/04/25 05:25 Q15MIN PRN BG 50-70 responsive npo pt Dextrose 50 ml 02/02/25 05:26 Dextrose 50%-Water Inj 50 Ml Syringe IV 03/04/25 05:25 Q15MIN PRN BG <50 OR BG <70 & pt unresponsive Enoxaparin Sodium 40 mg 02/02/25 09:00 02/02/25 09:01 Enoxaparin Sod Inj 40 Mg/0.4 Ml Syringe SC 02/16/25 08:59 40 mg QDAY MEGAN Administration Glucagon 1 mg 02/02/25 05:26 Glucagon Inj 1 Mg Vial IM Q15MIN PRN BG <70, and no IV access Dextrose/Lactated Ringer's 1,000 mls @ 75 mls/hr 02/02/25 10:45 02/02/25 11:14 D5-Lr IV 02/03/25 00:04 75 mls/hr .[id number] MEGAN Administration Insulin Human Lispro 0 unit 02/02/25 07:30 02/02/25 11:11 Insulin Lispro (Admelog) 1 Unit/0.01 Ml Unit SC 03/04/25 07:29 Not Given AC [facility] Protocol Levothyroxine Sodium 100 mcg 02/03/25 09:00 Levothyroxine Inj 100 Mcg Vial IV 03/05/25 08:59 QAM MEGAN Megestrol Acetate 40 mg 02/02/25 10:45 02/02/25 11:07 Megestrol Acet 20 Mg Tablet PO 03/04/25 10:44 40 mg QDAY MEGAN Administration Metoclopramide HCl 5 mg 02/02/25 10:41 Metoclopramide 5 Mg Tablet PO 03/04/25 10:40 Q8HR PRN NAUSEA OR VOMITING Protocol Ondansetron HCl 4 mg 02/02/25 05:26 02/02/25 07:52 Ondansetron Inj 2 Mg/Ml Inj 2 Ml IVP 03/04/25 05:25 4 mg Q6H PRN Administration NAUSEA OR VOMITING Protocol Pyridoxine HCl 100 mg 02/02/25 09:00 02/02/25 09:20 Pyridoxine Inj 100 Mg/Ml Vial IM 02/06/25 09:01 100 mg QDAY MEGAN Administration Thiamine HCl 100 mg 02/02/25 09:00 02/02/25 09:01 Thiamine Inj 100 Mg/Ml Vial 2 Ml IVP 03/04/25 08:59 100 mg QDAY MEGAN Administration Tramadol HCl 50 mg 02/02/25 05:26 02/02/25 07:52 Tramadol Hcl 50 Mg Tablet PO 02/07/25 05:25 50 mg Q6HR PRN Administration PAIN SCALE 4-10(Mod-Sev Plan 59 y/o F with PMHx significant for insulin dependent diabetes, hypertension, hypothyroidism, rheumatoid arthritis presents with chief complaint of intractable nausea/vomiting x 3 weeks, admitted for intractable nausea/vomiting. #Intractable nausea/vomiting DDx: Postcholecystectomy syndrome, gastroparesis 2/2 diabetes, cyclic vomiting syndrome, sphincter of oddi dysfunction, or hypothyroidism. Patient reports intractable nausea and vomiting for the past 3 weeks, denies 50 episodes per day, typically yellow or dark green. No signs of hematemesis. Patient is also had poor p.o. intake during this time, only able to tolerate fluids. Patient received 2 L bolus normal saline in the ED. S/p cholecystectomy for similar presentation last year. Symptoms had resolved prior to surgery but are now recurring. Diabetes is now under control, her initial A1c in February 2024 when she was diagnosed was A1C:10%. Plan: -Restart meds from past hospitalization: -Amytriptyline 25mg PO HS -Megestrol acet -Metoclopramide 5mg PO PRN -Vit B6 100mg IM QD -Thiamine 100mg IVP QD - D5LR IV 75mL/hr - GI consulted, appreciate recommendations - TSH: 0.03 - Free T4: 0.99 - A1c: 5.9 - Zofran 4 mg IV every 6 hours as needed - RUQ US:___ pending read - PTH:____pending #High anion gap metabolic acidosis #Starvation ketoacidosis Less likely to be euglycemic DKA, considering it requires ongoing glucagon activity often precipitated by SGLT2i use, reduced carb intake, or other stressors. Starvation ketoacidosis is after a prolonged fast or severe caloric restriction, with low to normal blood glucose. Patient presented with serum bicarb 15.8, anion gap 21. ABG showed pH 7.39, pCO2 28. Glucose 115. Suspect starvation ketosis in the setting of poor p.o. intake x 3 weeks due to intractable nausea/vomiting. Betahydroxybutryate >6.4. UA: +4 ketones Plan: - Treat nausea/vomiting as above - Monitor and replete electrolytes as needed #Hypercalcemia Patient presented with corrected calcium 12.1. Received 2 L bolus normal saline in the ED. - IVF as above - Monitor calcium #Insulin-dependent diabetes Patient with history of diabetes, takes insulin as needed. Does not take any other diabetic medications. A1c approximately 6% per patient. - ISS - A1c ordered -D50 IV PRN -Glucagon Inj 1 mg PRN #HTN Under control at this moment, pending med recs Plan: -Hydralazine 10mg IV Q6 PRN for systolic >180 #Hypothyroidism Unable to take PO home meds the last 3 weeks due to vomiting and nausea Plan: -Levothyroxine 100mcg IV QAM #Rheumatoid arthritis Patient history as stated. Med rec's pending. - Resume home meds when appropriate DVT prophylaxis: Lovenox GI prophylaxis: None Diet: Diabetic clear liquid diet Lines: Peripheral IV Code status: Full code Plan of care discussed with attending Dr. Johnson and supervising residents Dr. Solorio and Dr. Boland. Srikanth Rao MD PGY?1 Attending Provider Attestation/Addendum I have discussed and was present for the essential components of the history, physical examination, diagnosis, and treatment plan with the resident. I agree with the patient's care as documented by the resident and amended herein by me. Rogelio Johnson DO. Although this document has been carefully reviewed, there may still be some phonetic and other typographical errors. These errors are purely grammatical due to imperfections in the software program and should not be construed in any way to compromise the substance of the patient's medical care during this visit. Patient seen and evaluated this AM., Vital signs stable, patient afebrile, no acute events overnight. CBC largely unremarkable, BMP demonstrating potassium of 2.9 and a bicarb of 15.8. Patient still nauseous and has some episodes of vomiting. Anion gap elevated to 21, beta hydroxy greater than 6.4, free T4 on the low end of normal at 0.99, urinalysis was positive and lactate was 1.2 today. For the patient's HAGMA, likely secondary to starvation ketosis and so started D5 LR drip today which will hopefully improve this, patient possibly has gastroparesis although swallowing study in May 2024 was normal, will start on Reglan, amitriptyline and megestrol which helped her on her last admission. Will also continue home meds as appropriate to include her thyroid medication however will likely be converted to IV due to her nausea. Gastroenterology consulted, appreciate recommendations.
--- NOTE | 2025-02-02 17:51 | PD.IMCONS ---
HPI Data of Consult Requesting Physician: Clement Frazier MD Primary Care Provider: Miah Coles MD Consult Narrative Reason for consult: Nausea vomiting History of present illness: 59 years old female admitted with intractable nausea vomiting Back in March she had an upper endoscopy done which showed gastritis and esophagitis she also had undergone cholecystectomy no hematemesis cc:: cc: Clement Frazier MD Review of Systems Review of Systems Systems Reviewed: All systems reviewed, normal except as documented Past Medical History Surgical History OTHER SURGICAL HX: Diabetes mellitus type 2 Rheumatoid arthritis Hypothyroidism Meds Home Medications and Allergies Home Medications ?Medication ?Instructions ?Recorded ?Confirmed ?Type hydrochlorothiazide 25 mg tablet 25 mg PO QAM 03/25/24 02/02/25 History Held on 06/10/24. Instructions: re evaluate with PCP lovastatin 40 mg tablet 40 mg PO QDAY 03/25/24 02/02/25 History etanercept 50 mg/mL (1 mL) 50 mg subcut .Qfriday 02/02/25 02/02/25 History subcutaneous pen injector (Enbrel SureClick) gabapentin 100 mg capsule 200 mg PO Q8H 02/02/25 02/02/25 History levothyroxine 137 mcg tablet 137 mcg PO QAMAC 02/02/25 02/02/25 History metformin 500 mg tablet 500 mg PO BIDWM 02/02/25 02/02/25 History Allergies Allergy/AdvReac Type Severity Reaction Status Date / Time No Known Allergies Allergy Verified 02/02/25 01:56 Exam Vital Signs Temp Pulse Resp BP Pulse Ox O2 Del Method 97.7 F 87 17 114/74 97 Room Air 02/02/25 15:40 02/02/25 15:40 02/02/25 15:40 02/02/25 15:40 02/02/25 15:40 02/02/25 15:40 Constitutional Comments: Chronically ill-appearing Routine Respiratory Exam Comments: Normal to auscultation Routine Abdominal Exam Comments: Soft nontender Results Labs 02/02/25 03:10 02/02/25 03:10 Labs: Short CBC 02/02/25 Range/Units 03:10 WBC 6.6 (3.6-11.0) Thou/mm3 Hgb 15.1 (12.0-16.0) g/dL Hct 43.8 (36.0-46.0) % Plt Count 314 (140-440) Thou/mm3 BMP 02/02/25 03:10 Sodium 135 L Potassium 2.9 L Chloride 98 Carbon Dioxide 15.8 L BUN 5 L Creatinine 1.0 Glucose 115 H Calcium 12.1 H Cardiac Enzymes 02/02/25 Range/Units 03:10 Troponin I < 0.020 (0.0-0.045) ng/mL Liver Function 02/02/25 Range/Units 03:10 Total Bilirubin 0.6 (0.3-1.2) mg/dL AST 27 (0-34) U/L ALT 20 (10-49) U/L Alkaline Phosphatase 50 (46-116) U/L Albumin 4.3 (3.5-5.0) gm/dL Urine 02/02/25 Range/Units 04:45 Urine Color Lt-Yellow (Lt Yel-Yel) Urine Clarity Clear (Clear/Hazy) Urine pH 6.0 (5.0-7.0) Ur Specific [place] 1.018 (1.001-1.035) Urine Protein 1+ A (Neg - Trace) Urine Glucose (UA) Negative (Negative) Assessment and Plan Additional Assessment & Plan Additional Plan: # Intractable nausea vomiting Etiology uncertain but most likely gastroparesis and gastric motility disorder in the setting of diabetes mellitus type 2 Plan Gastric emptying nuclear medicine study N.p.o. midnight tonight consent obtained for fiberoptic esophagogastroduodenoscopy with possible biopsy possible therapeutic intervention under intravenous moderate sedation Other medical problems include Diabetes mellitus type 2 Hypothyroidism Rheumatoid arthritis Thank you very much for the opportunity to participate in the care of this patient
--- NOTE | 2025-02-02 17:56 | XR_ITS ---
Examination: Nuclear medicine gastric emptying study Date and time: February 03, 2025, 1553 hours INDICATIONS: Nausea and vomiting with feeding beginning March 2024 TECHNIQUE AND FINDINGS: Oral administration 2.0 uCi of 90 9M technetium sulfur colloid Imaging obtained to 120 minutes Retention of activity 120 minutes 4.3% IMPRESSION: Normal gastric emptying study
[2025-02-02] MEDS: ACETAMINOPHEN 325 MG TABLET 650 MG PO (18:38)
[2025-02-02 19:05] LABS: Parathyroid Hormone Intact 7.8 pg/ml (18.5-88.0)
[2025-02-02] MEDS: AMITRIPTYLINE HCL 25 MG TABLET PO (20:13)
[2025-02-03] VITALS: BP 92/74; PULSE 87; RESP 17; TEMP 36.1; O2SAT 96
[2025-02-03 04:00] VITALS: BP 110/62; PULSE 87; RESP 16; TEMP 36.6; O2SAT 95
[2025-02-03 06:04] LABS: Basophils # (Auto) 0.0 Thou/mm3 (0.0-0.2); Basophils % (Auto) 1 % (0-2.5); Eosinophils # (Auto) 0.3 Thou/mm3 (0.0-0.5); Eosinophils % (Auto) 6 % (0-10); Hematocrit 35.3 % (36.0-46.0); Hemoglobin 11.8 g/dL (12.0-16.0); Immature Granulocytes Auto 0.01 Thou/mm3 (0.00-0.00); Lymphocytes # (Auto) 0.9 Thou/mm3 (1.0-4.8); Lymphocytes % (Auto) 18 % (10-50); Mean Corpuscular HGB Conc 33.4 g/dl (31.0-37.0); Mean Corpuscular Hemoglobin 27.6 pg (25.0-35.0); Mean Corpuscular Volume 83 fL (80-100); Monocytes # (Auto) 1.3 Thou/mm3 (0.0-0.8); Monocytes % (Auto) 24 % (0-12); Neutrophils # (Auto) 2.7 Thou/mm3 (1.8-7.7); Neutrophils % (Auto) 52 % (37-80); Nucleated Red Blood Cell # 0.00 Thou/mm3 (0.00-0.00); Nucleated Red Blood Cell % 0 /100 WBC (0); Platelet Count 219 Thou/mm3 (140-440); RDW Standard Deviation 46.4 fL (36.4-46.3); Red Blood Count 4.28 Miln/mm3 (4.00-5.20); White Blood Count 5.2 Thou/mm3 (3.6-11.0)
[2025-02-03 06:44] LABS: Alanine Aminotransferase 11 U/L (10-49); Albumin, Serum 2.9 gm/dL (3.5-5.0); Albumin/Globulin Ratio 1.0 (1.2-2.2); Alkaline Phosphatase 38 U/L (46-116); Anion Gap 11 (7-16); Aspartate Amino Transferase 24 U/L (0-34); BUN/Creatinine Ratio 6 Ratio (12-20); Bilirubin,Total 0.5 mg/dL (0.3-1.2); Blood Urea Nitrogen < 5 mg/dL (9-23); Calcium 10.1 mg/dL (8.3-10.6); Calcium (Corrected) 11.0 mg/dL (8.5-10.1); Carbon Dioxide 22.0 mMol/L (20.0-31.0); Chloride 109 mMol/L (98-107); Creatinine (Component) 0.8 mg/dL (0.6-1.3); Estimated Creatinine Clearance 88.4 mL/min (>60); Globulin 2.8 gm/dL (2.3-3.5); Glucose 89 mg/dL (74-106); Magnesium 1.9 mg/dL (1.6-2.6); Osmolality,Calculated 279 (275-295); Phosphorous 1.7 mg/dL (2.4-5.1); Potassium 3.1 mMol/L (3.4-5.1); Sodium 142 mMol/L (136-145); Total Protein 5.7 gm/dL (5.7-8.2); eGFR > 60 See Note
[2025-02-03] MEDS: POTASSIUM CHL 10 mEq IVPB 10 MEQ/100 ML BAG 100 MEQ IV ×2 (07:35→12:24)
[2025-02-03 08:00] VITALS: BP 111/68; PULSE 86; RESP 19; TEMP 36.1; O2SAT 94
[2025-02-03] MEDS: POTASSIUM CHL 10 mEq IVPB 10 MEQ/100 ML BAG 50 MEQ IV ×2 (09:19→11:18)
[2025-02-03] MEDS: ENOXAPARIN SOD INJ 40 MG/0.4 ML SYRINGE SC (09:20)
[2025-02-03] MEDS: THIAMINE INJ 100 MG/ML VIAL 2 ML IVP (09:21)
[2025-02-03] MEDS: SODIUM CHLORIDE 0.9% 1000 ML 1,000 ML 75 ML IV (09:22)
[2025-02-03] MEDS: ACETAMINOPHEN 325 MG TABLET 650 MG PO (09:37)
[2025-02-03 09:41] VITALS: BMI 36.4
[2025-02-03 12:00] VITALS: BP 132/82; PULSE 95; RESP 19; TEMP 36.1; O2SAT 97
--- NOTE | 2025-02-03 13:06 | ESPR_ITS ---
<Statement entered by Hayley Solorio MD - 02/03/25 18:35> I have reviewed the note and agree with the resident's assessment & plan with exceptions as below. I have personally reviewed labs, imaging, home meds/prior records, examined the patient, formulated and discussed management plan with the IM team. Patient examined at bedside today. No acute overnight events. Patient reports last time she vomited was in the ER. Patient reported that the Megace had helped her symptoms of vomiting when she was discharged last time back in May. GI on consult, recommending gastric emptying study today and EGD as well. Patient is currently n.p.o., will allow for ice chips for now and oral care as needed. Will continue to aggressively replace electrolytes, and give patient fluid. Repeat hematology and chemistry in AM. Slowly resuming patient's home medicines as there is a concern for worsening nausea and vomiting. Hayley Solorio, PGY-2 Internal Medicine Documentation for date of: 02/03/25 Subjective Subjective Interval history: IV tylenol was given for her abdominal discomfort. Patient examined bedside in good spirits, but still uncomfortable. She has no complaints at the moment other than her abdominal pain. She is still nauseas at times but has not thrown up. Would like some ice chips while she waits for EGD, interviewer complied. Denies fevers, chills, night sweats, SOB, chest pain, hematuria, hematochezia. Exam Vital Signs Temp Pulse Resp BP Pulse Ox O2 Del Method 97.0 F 95 19 132/82 H 97 Room Air 02/03/25 12:00 02/03/25 12:00 02/03/25 12:02/03/25 12:00 02/03/25 12:00 02/03/25 08:00 Narrative Exam PE: Gen: Well-developed and well-nourished. Lethargic, hoarse. HEENT: NCAT, PERRLA, EOMI, anicteric conjunctivae. Dry mucous membranes. CVS: RRR, normal S1 and S2. No M/R/G. Resp: CTA B/L. No rhonchi, rales, crackles or wheezing. Abd: soft, non-distended. BS+ in all 4 quadrants. Mild diffuse epigastric tenderness, most heightened in the RUQ. MSK: Good ROM in BUE & BLE. No edema or rash. Neuro: CN II-XII grossly intact. Strength 5/5 in BUE & BLE. Alert and oriented x3. Slowed speech. Psych: appropriate mood and affect. Objective Labs 02/03/25 05:30 02/03/25 05:30 Labs: Laboratory Results - last 24 hr 02/02/25 02/03/25 06:13 05:30 WBC 5.2 RBC 4.28 Hgb 11.8 L D Hct 35.3 L MCV 83 MCH 27.6 MCHC 33.4 RDW Std Deviation 46.4 H Plt Count 219 D Neut % (Auto) 52 Lymph % (Auto) 18 [place] % (Auto) 24 H Eos % (Auto) 6 Baso % (Auto) 1 Neut # (Auto) 2.7 Lymph # (Auto) 0.9 L [place] # (Auto) 1.3 H Eos # (Auto) 0.3 Baso # (Auto) 0.0 Immature Gran # (Auto) 0.01 H Absolute Nucleated RBC 0.00 Immature Gran % 0 Nucleated RBC % 0 Sodium 142 Potassium 3.1 L Chloride 109 H Carbon Dioxide 22.0 Anion Gap 11 BUN < 5 L Creatinine 0.8 Estim Creat Clear Calc 88.4 eGFR > 60 BUN/Creatinine Ratio 6 L Glucose 89 Calculated Osmolality 279 Calcium 10.1 D Corrected Calcium 11.0 H Phosphorus 1.7 L Magnesium 1.9 Total Bilirubin 0.5 AST 24 ALT 11 Alkaline Phosphatase 38 L D Total Protein 5.7 Albumin 2.9 L D Globulin 2.8 Albumin/Globulin Ratio 1.0 L PTH Intact 7.8 L Quality Measures Quality Measures VTE prophylaxis Assessment & Plan Assessment Current Active Medications: Generic Name Dose Route Start Last Admin Trade Name Freq PRN Reason Stop Dose Admin Acetaminophen 650 mg 02/02/25 05:26 02/03/25 09:37 Acetaminophen 325 Mg Tablet PO 03/04/25 05:25 650 mg Q6H PRN Administration Fever >100.4 or pain 1-3 Amitriptyline HCl 25 mg 02/02/25 21:00 02/02/25 20:13 Amitriptyline Hcl 25 Mg Tablet PO 03/04/25 20:59 25 mg HS MEGAN Administration Dextrose 25 ml 02/02/25 05:26 Dextrose 50%-Water Inj 50 Ml Syringe IV 03/04/25 05:25 Q15MIN PRN BG 50-70 responsive npo pt Dextrose 50 ml 02/02/25 05:26 Dextrose 50%-Water Inj 50 Ml Syringe IV 03/04/25 05:25 Q15MIN PRN BG <50 OR BG <70 & pt unresponsive Enoxaparin Sodium 40 mg 02/02/25 09:00 02/03/25 09:20 Enoxaparin Sod Inj 40 Mg/0.4 Ml Syringe SC 02/16/25 08:59 40 mg QDAY MEGAN Administration Glucagon 1 mg 02/02/25 05:26 Glucagon Inj 1 Mg Vial IM Q15MIN PRN BG <70, and no IV access Hydralazine HCl 10 mg 02/02/25 16:58 Hydralazine Inj 20 Mg/Ml Vial IVP 03/04/25 16:57 Q6H PRN hypertension Protocol Potassium Phosphate 22.5 mmol/ 507.5 mls @ 82.778 mls/hr 02/03/25 11:30 Sodium Chloride IV 02/03/25 17:37 X1 ONE Sodium Chloride 1,000 mls @ 75 mls/hr 02/03/25 08:58 02/03/25 09:22 Ns IV 02/03/25 22:17 75 mls/hr .[id number] MEGAN Administration Acetaminophen 1,000 mg in 100 mls @ 250 mls/hr 02/03/25 10:21 Ofirmev Inj IV 02/04/25 00:23 Q6HR PRN abdominal pain Protocol Insulin Human Lispro 0 unit 02/02/25 07:30 02/03/25 10:57 Insulin Lispro (Admelog) 1 Unit/0.01 Ml Unit SC 03/04/25 07:29 Not Given AC MEGAN Protocol Levothyroxine Sodium 100 mcg 02/03/25 09:00 02/03/25 09:21 Levothyroxine Inj 100 Mcg Vial IV 03/05/25 08:59 100 mcg QAM MEGAN Administration Megestrol Acetate 40 mg 02/02/25 10:45 02/03/25 09:22 Megestrol Acet 20 Mg Tablet PO 03/04/25 10:44 Not Given QDAY MEGAN Metoclopramide HCl 5 mg 02/02/25 10:41 Metoclopramide 5 Mg Tablet PO 03/04/25 10:40 Q8HR PRN NAUSEA OR VOMITING Protocol Ondansetron HCl 4 mg 02/02/25 05:26 02/02/25 07:52 Ondansetron Inj 2 Mg/Ml Inj 2 Ml IVP 03/04/25 05:25 4 mg Q6H PRN Administration NAUSEA OR VOMITING Protocol Pyridoxine HCl 100 mg 02/02/25 09:00 02/03/25 09:20 Pyridoxine Inj 100 Mg/Ml Vial IM 02/06/25 09:01 100 mg QDAY MEGAN Administration Thiamine HCl 100 mg 02/02/25 09:00 02/03/25 09:21 Thiamine Inj 100 Mg/Ml Vial 2 Ml IVP 03/04/25 08:59 100 mg QDAY MEGAN Administration Tramadol HCl 50 mg 02/02/25 05:26 02/03/25 03:04 Tramadol Hcl 50 Mg Tablet PO 02/07/25 05:25 50 mg Q6HR PRN Administration PAIN SCALE 4-10(Mod-Sev Plan 59 y/o F with PMHx significant for insulin dependent diabetes, hypertension, hypothyroidism, rheumatoid arthritis presents with chief complaint of intractable nausea/vomiting x 3 weeks, admitted for intractable nausea/vomiting. Gastric emptying series done today resulted in normal gastric emptying, pending EGD. #Intractable nausea/vomiting DDx: Postcholecystectomy syndrome, gastroparesis 2/2 diabetes, cyclic vomiting syndrome, sphincter of oddi dysfunction, or hypothyroidism. Patient reports intractable nausea and vomiting for the past 3 weeks, denies 50 episodes per day, typically yellow or dark green. No signs of hematemesis. Patient is also had poor p.o. intake during this time, only able to tolerate fluids. Patient received 2 L bolus normal saline in the ED. S/p cholecystectomy for similar presentation last year. Symptoms had resolved prior to surgery but are now recurring. Diabetes is now under control, her initial A1c in February 2024 when she was diagnosed was A1C:10%. Plan: -Restart meds from past hospitalization: -Amytriptyline 25mg PO HS -Megestrol acet -Metoclopramide 5mg PO PRN -Vit B6 100mg IM QD -Thiamine 100mg IVP QD - IV NS - GI consulted, appreciate recommendations - TSH: 0.03 - Free T4: 0.99 - A1c: 5.9 - Zofran 4 mg IV every 6 hours as needed - RUQ US: No common bile duct stones. Mild hepatomegaly fatty infiltration no focal liver lesions. - PTH: 7.8 (L) #High anion gap metabolic acidosis #Starvation ketoacidosis Less likely to be euglycemic DKA, considering it requires ongoing glucagon activity often precipitated by SGLT2i use, reduced carb intake, or other stressors. Starvation ketoacidosis is after a prolonged fast or severe caloric restriction, with low to normal blood glucose. Patient presented with serum bicarb 15.8, anion gap 21. ABG showed pH 7.39, pCO2 28. Glucose 115. Suspect starvation ketosis in the setting of poor p.o. intake x 3 weeks due to intractable nausea/vomiting. Betahydroxybutryate >6.4. UA: +4 ketones Plan: - Treat nausea/vomiting as above - Monitor and replete electrolytes as needed #Hypercalcemia Patient presented with corrected calcium 12.1. Received 2 L bolus normal saline in the ED. - IVF as above - Monitor calcium #Insulin-dependent diabetes Patient with history of diabetes, takes insulin as needed. Does not take any other diabetic medications. A1c approximately 6% per patient. - ISS - A1c ordered -D50 IV PRN -Glucagon Inj 1 mg PRN #HTN Under control at this moment, pending med recs Plan: -Hydralazine 10mg IV Q6 PRN for systolic >180 #Hypothyroidism Unable to take PO home meds the last 3 weeks due to vomiting and nausea Plan: -Levothyroxine 100mcg IV QAM #Rheumatoid arthritis Patient history as stated. Med rec's pending. - Resume home meds when appropriate DVT prophylaxis: Lovenox GI prophylaxis: None Diet: Diabetic clear liquid diet Lines: Peripheral IV Code status: Full code Plan of care discussed with attending Dr. Johnson and supervising residents Dr. Solorio and Dr. Boland. Srikanth Rao MD PGY?1 Attending Provider Attestation/Addendum I have discussed and was present for the essential components of the history, physical examination, diagnosis, and treatment plan with the resident. I agree with the patient's care as documented by the resident and amended herein by me. Rogelio Johnson DO. Although this document has been carefully reviewed, there may still be some phonetic and other typographical errors. These errors are purely grammatical due to imperfections in the software program and should not be construed in any way to compromise the substance of the patient's medical care during this visit. Patient seen and evaluated this AM., Vital signs stable, patient afebrile, no acute events overnight. CBC largely unremarkable, BMP demonstrating potassium of 2.9 and a bicarb of 15.8. Patient still nauseous and has some episodes of vomiting. Anion gap elevated to 21, beta hydroxy greater than 6.4, free T4 on the low end of normal at 0.99, urinalysis was positive and lactate was 1.2 today. For the patient's HAGMA, likely secondary to starvation ketosis and so started D5 LR drip today which will hopefully improve this, patient possibly has gastroparesis although swallowing study in May 2024 was normal, will start on Reglan, amitriptyline and megestrol which helped her on her last admission. Will also continue home meds as appropriate to include her thyroid medication however will likely be converted to IV due to her nausea. Gastroenterology consulted, appreciate recommendations.
--- NOTE | 2025-02-03 13:45 | CHAP ---
Patient was visited by a Spiritual Care Volunteer on 02/03/2025 between 0900 and 0955 and received comfort, encouragement and/or prayer.
[2025-02-03 16:00] VITALS: BP 103/62; PULSE 89; RESP 18; TEMP 36.1; O2SAT 96
[2025-02-03] MEDS: POTASSIUM PHOS 22.5 MMOL in SODIUM CHLORIDE 0.9% 500 ML 500 ML 82.778 MMOL IV (17:01)
[2025-02-03 20:00] VITALS: BP 122/64; PULSE 90; RESP 17; TEMP 36.1; O2SAT 95
[2025-02-03] MEDS: ACETAMINOPHEN IVPB 1,000 MG/100 ML VIAL 250 MG IV (20:05)
--- NOTE | 2025-02-03 20:25 | PD.IMPROG ---
Documentation for date of: 02/03/25 Subjective Subjective Interval history: Normal gastric emptying study nuclear medicine EGD was canceled because patient was undergoing the nuclear medicine gastric emptying study Exam Vital Signs Temp Pulse Resp BP Pulse Ox O2 Del Method 97.0 F 89 18 103/62 96 Room Air 02/03/25 16:00 02/03/25 16:00 02/03/25 16:00 02/03/25 16:00 02/03/25 16:00 02/03/25 16:00 Objective Labs 02/03/25 05:30 02/03/25 05:30 Labs: Laboratory Results - last 24 hr 02/03/25 05:30 WBC 5.2 RBC 4.28 Hgb 11.8 L D Hct 35.3 L MCV 83 MCH 27.6 MCHC 33.4 RDW Std Deviation 46.4 H Plt Count 219 D Neut % (Auto) 52 Lymph % (Auto) 18 [place] % (Auto) 24 H Eos % (Auto) 6 Baso % (Auto) 1 Neut # (Auto) 2.7 Lymph # (Auto) 0.9 L [place] # (Auto) 1.3 H Eos # (Auto) 0.3 Baso # (Auto) 0.0 Immature Gran # (Auto) 0.01 H Absolute Nucleated RBC 0.00 Immature Gran % 0 Nucleated RBC % 0 Sodium 142 Potassium 3.1 L Chloride 109 H Carbon Dioxide 22.0 Anion Gap 11 BUN < 5 L Creatinine 0.8 Estim Creat Clear Calc 88.4 eGFR > 60 BUN/Creatinine Ratio 6 L Glucose 89 Calculated Osmolality 279 Calcium 10.1 D Corrected Calcium 11.0 H Phosphorus 1.7 L Magnesium 1.9 Total Bilirubin 0.5 AST 24 ALT 11 Alkaline Phosphatase 38 L D Total Protein 5.7 Albumin 2.9 L D Globulin 2.8 Albumin/Globulin Ratio 1.0 L Impressions Impression: Nausea vomiting Normal nuclear medicine gastric emptying study Plan Fiberoptic esophagogastroduodenoscopy tomorrow N.p.o. midnight tonight Assessment & Plan A&P Narrative # Intractable nausea vomiting Etiology uncertain but most likely gastroparesis and gastric motility disorder in the setting of diabetes mellitus type 2 Plan Gastric emptying nuclear medicine study N.p.o. midnight tonight consent obtained for fiberoptic esophagogastroduodenoscopy with possible biopsy possible therapeutic intervention under intravenous moderate sedation Other medical problems include Diabetes mellitus type 2 Hypothyroidism Rheumatoid arthritis Thank you very much for the opportunity to participate in the care of this patient Time Spent With Patient Time: Total time spent is greater than 50% in coordination of care (as documented) at patient's floor/unit and/or counseling patient:
[2025-02-03] MEDS: ONDANSETRON INJ 2 MG/ML INJ 2 ML 4 MG IVP (20:45)
[2025-02-03] MEDS: AMITRIPTYLINE HCL 25 MG TABLET PO (20:45)
[2025-02-04] VITALS (15 sets, daily range): BP systolic 92–137; BP diastolic 53–79; PULSE 77–106; RESP 11–19; TEMP 36.1–37.1; O2SAT 94–99
[2025-02-04 05:21] LABS: Basophils # (Auto) 0.0 Thou/mm3 (0.0-0.2); Basophils % (Auto) 1 % (0-2.5); Eosinophils # (Auto) 0.4 Thou/mm3 (0.0-0.5); Eosinophils % (Auto) 8 % (0-10); Hematocrit 37.6 % (36.0-46.0); Hemoglobin 12.8 g/dL (12.0-16.0); Immature Granulocytes Auto 0.01 Thou/mm3 (0.00-0.00); Lymphocytes # (Auto) 1.3 Thou/mm3 (1.0-4.8); Lymphocytes % (Auto) 30 % (10-50); Mean Corpuscular HGB Conc 34.0 g/dl (31.0-37.0); Mean Corpuscular Hemoglobin 28.1 pg (25.0-35.0); Mean Corpuscular Volume 83 fL (80-100); Monocytes # (Auto) 1.0 Thou/mm3 (0.0-0.8); Monocytes % (Auto) 23 % (0-12); Neutrophils # (Auto) 1.8 Thou/mm3 (1.8-7.7); Neutrophils % (Auto) 39 % (37-80); Nucleated Red Blood Cell # 0.00 Thou/mm3 (0.00-0.00); Nucleated Red Blood Cell % 0 /100 WBC (0); Platelet Count 165 Thou/mm3 (140-440); RDW Standard Deviation 49.0 fL (36.4-46.3); Red Blood Count 4.56 Miln/mm3 (4.00-5.20); White Blood Count 4.5 Thou/mm3 (3.6-11.0)
[2025-02-04 05:48] LABS: Alanine Aminotransferase 11 U/L (10-49); Albumin, Serum 3.0 gm/dL (3.5-5.0); Albumin/Globulin Ratio 1.3 (1.2-2.2); Alkaline Phosphatase 38 U/L (46-116); Anion Gap 13 (7-16); Aspartate Amino Transferase 27 U/L (0-34); BUN/Creatinine Ratio 6 Ratio (12-20); Bilirubin,Total 0.3 mg/dL (0.3-1.2); Blood Urea Nitrogen < 5 mg/dL (9-23); Calcium 9.9 mg/dL (8.3-10.6); Calcium (Corrected) 10.7 mg/dL (8.5-10.1); Carbon Dioxide 18.8 mMol/L (20.0-31.0); Chloride 112 mMol/L (98-107); Creatinine (Component) 0.8 mg/dL (0.6-1.3); Estimated Creatinine Clearance 86.7 mL/min (>60); Globulin 2.3 gm/dL (2.3-3.5); Glucose 94 mg/dL (74-106); Magnesium 1.5 mg/dL (1.6-2.6); Osmolality,Calculated 284 (275-295); Phosphorous 3.3 mg/dL (2.4-5.1); Potassium 3.5 mMol/L (3.4-5.1); Sodium 144 mMol/L (136-145); Total Protein 5.3 gm/dL (5.7-8.2); eGFR > 60 See Note
--- NOTE | 2025-02-04 09:07 | PC.SS ---
Patient is alert/oriented. Patient was able to verify demographics. Patient is independent with ADL's. Patient was admitted for intractable nausea/vomiting. Patient states she resides alone. Patient has dx: Diabetes. She uses a glucometer at home to check her sugars. Patient states she uses a walker w/seat as needed. PCP: MARCE Giang at [facility]. Last appt was last month. Patient states she drives herself to appointments. Discharge plan is to return home. EGD pending. GI consult pending. Patient is also pending PT/Diet/Respiratory consult. Alt medical decision maker: Mendy Rodriguez, cousin, Discharge plan: home
--- NOTE | 2025-02-04 09:32 | SUR.PHASEI ---
pt able to tolerate oral fluids without difficulty swallowing or nausea/vomiting.
--- NOTE | 2025-02-04 09:40 | PC.NURSE ---
REPORT RECEIVED FROM ELIN GIL FROM OR.
--- NOTE | 2025-02-04 09:41 | ESPR_ITS ---
<Statement entered by Hayley Solorio MD - 02/04/25 19:36> I have reviewed the note and agree with the resident's assessment & plan with exceptions as below. I have personally reviewed labs, imaging, home meds/prPatient's disposition will be based off how patient can tolerate por records, examined the patient, formulated and discussed management plan with the IM team. Patient examined at bedside today. No acute overnight events. Patient to undergo EGD by Dr. Reardon. After EGD, will advance patient's diet, continue with IV fluids and electrolyte replenishment. Patient will likely need subspecialty gastroenterology workup for recurrent nausea and vomiting. Will limit QTc prolonging agents at this time. Repeat hematology and chemistry in AM. Will consult registered dietitian as well. Hayley Solorio, PGY-2 Internal Medicine Documentation for date of: 02/04/25 Subjective Subjective Interval history: EGD performed today: esophagitis, biopsies form upper and lower third of esophagus, gastritis characterized by erythema, erythematous duodenopathy. On evaluation patient reports ongoing nausea that is now 2/10 from the 01/19 on admission, she reports feeling really sleepy. She had looe stools today without hematochezia. She denies SOB, chest pain and vomiting. Exam Vital Signs Temp Pulse Resp BP Pulse Ox O2 Del Method O2 Flow Rate 97.3 F 77 12 100/64 98 Room Air 2 02/04/25 09:25 02/04/25 09:25 02/04/25 09:25 02/04/25 09:25 02/04/25 09:25 02/04/25 08:00 02/04/25 09:25 Narrative Exam PE: Gen: Well-developed and well-nourished. Lethargic, improved hoarseness. HEENT: NCAT, PERRLA, EOMI, anicteric conjunctivae. MMM CVS: RRR, normal S1 and S2. No M/R/G. Resp: CTA B/L. No rhonchi, rales, crackles or wheezing. Abd: soft, non-distended. BS+ in all 4 quadrants. Mild diffuse epigastric tenderness, most heightened in the RUQ (overall much improved) MSK: Good ROM in BUE & BLE. No edema or rash. Neuro: CN II-XII grossly intact. Strength 5/5 in BUE & BLE. Alert and oriented x3. Slowed speech. Psych: appropriate mood and affect. Objective Labs 02/05/25 04:13 02/05/25 04:13 Labs: Laboratory Results - last 24 hr 02/04/25 04:22 WBC 4.5 RBC 4.56 Hgb 12.8 Hct 37.6 MCV 83 MCH 28.1 MCHC 34.0 RDW Std Deviation 49.0 H Plt Count 165 D Neut % (Auto) 39 Lymph % (Auto) 30 [place] % (Auto) 23 H Eos % (Auto) 8 Baso % (Auto) 1 Neut # (Auto) 1.8 Lymph # (Auto) 1.3 [place] # (Auto) 1.0 H Eos # (Auto) 0.4 Baso # (Auto) 0.0 Immature Gran # (Auto) 0.01 H Absolute Nucleated RBC 0.00 Immature Gran % 0 Nucleated RBC % 0 Sodium 144 Potassium 3.5 Chloride 112 H Carbon Dioxide 18.8 L Anion Gap 13 BUN < 5 L Creatinine 0.8 Estim Creat Clear Calc 86.7 eGFR > 60 BUN/Creatinine Ratio 6 L Glucose 94 Calculated Osmolality 284 Calcium 9.9 Corrected Calcium 10.7 H Phosphorus 3.3 Magnesium 1.5 L Total Bilirubin 0.3 AST 27 ALT 11 Alkaline Phosphatase 38 L Total Protein 5.3 L Albumin 3.0 L Globulin 2.3 Albumin/Globulin Ratio 1.3 Quality Measures Quality Measures VTE prophylaxis Assessment & Plan Assessment Current Active Medications: Generic Name Dose Route Start Last Admin Trade Name Freq PRN Reason Stop Dose Admin Acetaminophen 650 mg 02/02/25 05:26 02/03/25 09:37 Acetaminophen 325 Mg Tablet PO 03/04/25 05:25 650 mg Q6H PRN Administration Fever >100.4 or pain 1-3 Amitriptyline HCl 25 mg 02/02/25 21:00 02/03/25 20:45 Amitriptyline Hcl 25 Mg Tablet PO 03/04/25 20:59 25 mg HS MEGAN Administration Dextrose 25 ml 02/02/25 05:26 Dextrose 50%-Water Inj 50 Ml Syringe IV 03/04/25 05:25 Q15MIN PRN BG 50-70 responsive npo pt Dextrose 50 ml 02/02/25 05:26 Dextrose 50%-Water Inj 50 Ml Syringe IV 03/04/25 05:25 Q15MIN PRN BG <50 OR BG <70 & pt unresponsive Enoxaparin Sodium 40 mg 02/02/25 09:00 02/03/25 09:20 Enoxaparin Sod Inj 40 Mg/0.4 Ml Syringe SC 02/16/25 08:59 40 mg QDAY MEGAN Administration Glucagon 1 mg 02/02/25 05:26 Glucagon Inj 1 Mg Vial IM Q15MIN PRN BG <70, and no IV access Hydralazine HCl 10 mg 02/02/25 16:58 Hydralazine Inj 20 Mg/Ml Vial IVP 03/04/25 16:57 Q6H PRN hypertension Protocol Magnesium Sulfate 4 gm in 50 mls @ 12.5 mls/hr 02/04/25 08:20 Magnesium Sulfate Ivpb IV 02/04/25 12:19 X1 ONE Potassium Chloride 10 meq in 100 mls @ 100 mls/hr 02/04/25 09:00 Kcl Ivpb IV 02/04/25 12:59 Q1H MEGAN Insulin Human Lispro 0 unit 02/02/25 07:30 02/04/25 08:18 Insulin Lispro (Admelog) 1 Unit/0.01 Ml Unit SC 03/04/25 07:29 Not Given AC [facility] Protocol Levothyroxine Sodium 100 mcg 02/03/25 09:00 02/03/25 09:21 Levothyroxine Inj 100 Mcg Vial IV 03/05/25 08:59 100 mcg QAM MEGAN Administration Megestrol Acetate 40 mg 02/02/25 10:45 02/03/25 09:22 Megestrol Acet 20 Mg Tablet PO 03/04/25 10:44 Not Given QDAY MEGAN Metoclopramide HCl 5 mg 02/02/25 10:41 Metoclopramide 5 Mg Tablet PO 03/04/25 10:40 Q8HR PRN NAUSEA OR VOMITING Protocol Ondansetron HCl 4 mg 02/02/25 05:26 02/03/25 20:45 Ondansetron Inj 2 Mg/Ml Inj 2 Ml IVP 03/04/25 05:25 4 mg Q6H PRN Administration NAUSEA OR VOMITING Protocol Pantoprazole Sodium 40 mg 02/04/25 09:15 Pantoprazole Inj 40 Mg Vial IVP 03/06/25 09:14 BID MEGAN Pyridoxine HCl 100 mg 02/02/25 09:00 02/03/25 09:20 Pyridoxine Inj 100 Mg/Ml Vial IM 02/06/25 09:01 100 mg QDAY MEGAN Administration Thiamine HCl 100 mg 02/02/25 09:00 02/03/25 09:21 Thiamine Inj 100 Mg/Ml Vial 2 Ml IVP 03/04/25 08:59 100 mg QDAY MEGAN Administration Tramadol HCl 50 mg 02/02/25 05:26 02/03/25 20:49 Tramadol Hcl 50 Mg Tablet PO 02/07/25 05:25 50 mg Q6HR PRN Administration PAIN SCALE 4-10(Mod-Sev Plan 59 y/o F with PMHx significant for insulin dependent diabetes, hypertension, hypothyroidism, rheumatoid arthritis presents with chief complaint of intractable nausea/vomiting x 3 weeks, admitted for intractable nausea/vomiting. Gastric emptying series done today resulted in normal gastric emptying, EGD: esophagitis, biopsies form upper and lower third of esophagus, gastritis characterized by erythema, erythematous duodenopathy. #Intractable nausea/vomiting DDx: Postcholecystectomy syndrome, gastroparesis 2/2 diabetes, cyclic vomiting syndrome, sphincter of oddi dysfunction, or hypothyroidism. Patient reports intractable nausea and vomiting for the past 3 weeks, denies 50 episodes per day, typically yellow or dark green. No signs of hematemesis. Patient is also had poor p.o. intake during this time, only able to tolerate fluids. Patient received 2 L bolus normal saline in the ED. S/p cholecystectomy for similar presentation last year. Symptoms had resolved prior to surgery but are now recurring. Diabetes is now under control, her initial A1c in February 2024 when she was diagnosed was A1C:10%. Plan: -Restart meds from past hospitalization: -Amytriptyline 25mg PO HS -Megestrol acet -Metoclopramide 5mg PO PRN -Vit B6 100mg IM QD -Thiamine 100mg IVP QD - GI consulted, appreciate recommendations -Promethazine 12.5mg IV Q6HR NS 0.9% -IV Q6HR 2.5mls/min - TSH: 0.03 - Free T4: 0.99 - A1c: 5.9 - Zofran 4 mg IV every 6 hours as needed - RUQ US: No common bile duct stones. Mild hepatomegaly fatty infiltration no focal liver lesions. - PTH: 7.8 (L) -Awaiting EGD Bx:____ #High anion gap metabolic acidosis #Starvation ketoacidosis Less likely to be euglycemic DKA, considering it requires ongoing glucagon activity often precipitated by SGLT2i use, reduced carb intake, or other stressors. Starvation ketoacidosis is after a prolonged fast or severe caloric restriction, with low to normal blood glucose. Patient presented with serum bicarb 15.8, anion gap 21. ABG showed pH 7.39, pCO2 28. Glucose 115. Suspect starvation ketosis in the setting of poor p.o. intake x 3 weeks due to intractable nausea/vomiting. Betahydroxybutryate >6.4. UA: +4 ketones Plan: - Treat nausea/vomiting as above - Monitor and replete electrolytes as needed #Hypercalcemia Patient presented with corrected calcium 12.1. Received 2 L bolus normal saline in the ED. Patient reports taking vitamin D pills at home - IVF as above - Monitor calcium #Insulin-dependent diabetes Patient with history of diabetes, takes insulin as needed. Does not take any other diabetic medications. A1c approximately 6% per patient. - ISS - A1c ordered -D50 IV PRN -Glucagon Inj 1 mg PRN #HTN Under control at this moment, pending med recs Plan: -Hydralazine 10mg IV Q6 PRN for systolic >180 #Hypothyroidism Unable to take PO home meds the last 3 weeks due to vomiting and nausea Plan: -Levothyroxine 100mcg IV QAM #Rheumatoid arthritis Patient history as stated. Med rec's pending. - Resume home meds when appropriate DVT prophylaxis: Lovenox GI prophylaxis: protonix 40, Zofran 4mg Diet: Diabetic clear liquid diet Lines: Peripheral IV Code status: Full code Plan of care discussed with attending Dr. Anderson and supervising residents Dr. Solorio and Dr. Boland. Srikanth Rao MD PGY?1 Attending Provider Attestation/Addendum I reviewed labs, imaging, EKG, home medications and prior available records. Face to face evaluation was performed by me. I have personally examined the patient and discussed assessment and plan with the IM team. I reviewed the resident note and agree with the plan with exceptions as below. Intractable nausea and vomiting Ordered NM gastric emptying study: WNL Status post EGD that showed gastritis/esophagitis. Continue PPI and promethazine. Low fiber diet
--- NOTE | 2025-02-04 09:47 | SUR.PHASEI ---
pt awake and alert, breathing unlabored on room air. v/s stable. report called to Jennifer GIL. pt will be transferred to room at this time.
[2025-02-04] MEDS: Magnesium Sulfate 4 GM Ivpb 4 GM/50 ML BAG IV (10:25)
[2025-02-04] MEDS: ENOXAPARIN SOD INJ 40 MG/0.4 ML SYRINGE SC (10:27)
[2025-02-04] MEDS: POTASSIUM CHL 10 mEq IVPB 10 MEQ/100 ML BAG 100 MEQ IV ×4 (10:27→14:32)
[2025-02-04] MEDS: THIAMINE INJ 100 MG/ML VIAL 2 ML IVP (10:39)
[2025-02-04] MEDS: MEGESTROL ACET 20 MG TABLET 40 MG PO (10:40)
--- NOTE | 2025-02-04 11:39 | PC.NURSE ---
DR. HEART MADE AWARE PT DENIES NAUSEA OR VOMITING AT THIS TIME. PHENERGAN NOT GIVEN. ADD NEW ORDER FOR PHENERGAN IV Q6H PRN FOR NAUSEA OR VOMITING. ORDER RECEIVED, READ BACK, AND CARRIED OUT.
[2025-02-04] MEDS: AMITRIPTYLINE HCL 25 MG TABLET PO (20:18)
[2025-02-05] VITALS: BP 128/69; PULSE 83; RESP 16; TEMP 36.3; O2SAT 96
[2025-02-05 04:00] VITALS: BP 101/59; PULSE 92; RESP 18; TEMP 36.3; O2SAT 95
[2025-02-05 06:07] LABS: Basophils # (Auto) 0.0 Thou/mm3 (0.0-0.2); Basophils % (Auto) 1 % (0-2.5); Eosinophils # (Auto) 0.4 Thou/mm3 (0.0-0.5); Eosinophils % (Auto) 8 % (0-10); Hematocrit 33.3 % (36.0-46.0); Hemoglobin 10.9 g/dL (12.0-16.0); Immature Granulocytes Auto 0.01 Thou/mm3 (0.00-0.00); Lymphocytes # (Auto) 1.7 Thou/mm3 (1.0-4.8); Lymphocytes % (Auto) 34 % (10-50); Mean Corpuscular HGB Conc 32.7 g/dl (31.0-37.0); Mean Corpuscular Hemoglobin 27.6 pg (25.0-35.0); Mean Corpuscular Volume 84 fL (80-100); Monocytes # (Auto) 1.0 Thou/mm3 (0.0-0.8); Monocytes % (Auto) 20 % (0-12); Neutrophils # (Auto) 1.9 Thou/mm3 (1.8-7.7); Neutrophils % (Auto) 38 % (37-80); Nucleated Red Blood Cell # 0.00 Thou/mm3 (0.00-0.00); Nucleated Red Blood Cell % 0 /100 WBC (0); Platelet Count 198 Thou/mm3 (140-440); RDW Standard Deviation 51.3 fL (36.4-46.3); Red Blood Count 3.95 Miln/mm3 (4.00-5.20); White Blood Count 5.1 Thou/mm3 (3.6-11.0)
[2025-02-05 06:47] LABS: Alanine Aminotransferase 12 U/L (10-49); Albumin, Serum 2.7 gm/dL (3.5-5.0); Albumin/Globulin Ratio 1.3 (1.2-2.2); Alkaline Phosphatase 39 U/L (46-116); Anion Gap 12 (7-16); Aspartate Amino Transferase 20 U/L (0-34); BUN/Creatinine Ratio 7 Ratio (12-20); Bilirubin,Total 0.4 mg/dL (0.3-1.2); Blood Urea Nitrogen < 5 mg/dL (9-23); Calcium 9.4 mg/dL (8.3-10.6); Calcium (Corrected) 10.4 mg/dL (8.5-10.1); Carbon Dioxide 21.0 mMol/L (20.0-31.0); Chloride 108 mMol/L (98-107); Creatinine (Component) 0.7 mg/dL (0.6-1.3); Estimated Creatinine Clearance 99.1 mL/min (>60); Globulin 2.1 gm/dL (2.3-3.5); Glucose 73 mg/dL (74-106); Magnesium 1.9 mg/dL (1.6-2.6); Osmolality,Calculated 277 (275-295); Phosphorous 2.9 mg/dL (2.4-5.1); Potassium 3.3 mMol/L (3.4-5.1); Sodium 141 mMol/L (136-145); Total Protein 4.8 gm/dL (5.7-8.2); eGFR > 60 See Note
[2025-02-05 08:00] VITALS: BP 108/67; PULSE 88; RESP 16; TEMP 36.1; O2SAT 95
[2025-02-05] MEDS: ENOXAPARIN SOD INJ 40 MG/0.4 ML SYRINGE SC (09:29)
[2025-02-05] MEDS: MEGESTROL ACET 20 MG TABLET 40 MG PO (09:29)
[2025-02-05] MEDS: THIAMINE INJ 100 MG/ML VIAL 2 ML IVP (09:31)
[2025-02-05] MEDS: POTASSIUM CHL 10 mEq IVPB 10 MEQ/100 ML BAG 100 MEQ IV ×4 (09:40→14:46)
--- NOTE | 2025-02-05 11:27 | PC.NURSE ---
Patients IV infiltrated not able to run potassium. Patient is a hard stick and IVs blow when I insert. I called ICU for ultrasound guided IV. ICU is not able to come at this time. I am having another nurse try to get IV access.
[2025-02-05 12:00] VITALS: BP 130/70; PULSE 93; RESP 18; TEMP 36.1; O2SAT 95
[2025-02-05 16:00] VITALS: BP 107/79; PULSE 91; RESP 18; TEMP 36.2; O2SAT 99
--- NOTE | 2025-02-05 16:48 | ESPR_ITS ---
Documentation for date of: 02/05/25 Subjective Subjective Interval history: Patient was seen and examined at bedside. Reported significant improvement of her symptoms, she has not had any vomiting since she came to the ED. She reported that she still has some nausea however has never had any vomiting since admission. Her oral intake still below her daily requirement. We consulted dietitian for further recommendations. Anticipated discharge tomorrow if the patient oral intake continue to improve. Exam Vital Signs Temp Pulse Resp BP Pulse Ox O2 Del Method O2 Flow Rate 97 F 93 18 130/70 95 Room Air 2 02/05/25 12:00 02/05/25 12:00 02/05/25 12:00 02/05/25 12:02/05/25 12:02/05/25 12:02/04/25 09:25 Narrative Exam GEN: AOx3, alert, able to speak full sentences HEENT: NC/AC, oral mucosa dry, neck supple CVS: RRR, S1-S2 present, no murmurs appreciated RESP: CTAB GI: soft,non distended, abdominal discomfort on palpation. MSK: able to move all 4 limbs, no lower extremity edema SKIN: warm and dry DIRECTOR OF THE [employer]: CN II-XII and Sensation grossly intact. Objective Labs 02/06/25 04:15 02/06/25 04:15 Labs: Laboratory Results - last 24 hr 02/05/25 04:13 WBC 5.1 RBC 3.95 L Hgb 10.9 L Hct 33.3 L MCV 84 MCH 27.6 MCHC 32.7 RDW Std Deviation 51.3 H Plt Count 198 D Neut % (Auto) 38 Lymph % (Auto) 34 [place] % (Auto) 20 H Eos % (Auto) 8 Baso % (Auto) 1 Neut # (Auto) 1.9 Lymph # (Auto) 1.7 [place] # (Auto) 1.0 H Eos # (Auto) 0.4 Baso # (Auto) 0.0 Immature Gran # (Auto) 0.01 H Absolute Nucleated RBC 0.00 Immature Gran % 0 Nucleated RBC % 0 Sodium 141 Potassium 3.3 L Chloride 108 H Carbon Dioxide 21.0 Anion Gap 12 BUN < 5 L Creatinine 0.7 Estim Creat Clear Calc 99.1 eGFR > 60 BUN/Creatinine Ratio 7 L Glucose 73 L Calculated Osmolality 277 Calcium 9.4 Corrected Calcium 10.4 H Phosphorus 2.9 Magnesium 1.9 Total Bilirubin 0.4 AST 20 ALT 12 Alkaline Phosphatase 39 L Total Protein 4.8 L Albumin 2.7 L Globulin 2.1 L Albumin/Globulin Ratio 1.3 Quality Measures Quality Measures VTE prophylaxis Assessment & Plan Assessment Current Active Medications: Generic Name Dose Route Start Last Admin Trade Name Freq PRN Reason Stop Dose Admin Acetaminophen 650 mg 02/02/25 05:26 02/03/25 09:37 Acetaminophen 325 Mg Tablet PO 03/04/25 05:25 650 mg Q6H PRN Administration Fever >100.4 or pain 1-3 Amitriptyline HCl 25 mg 02/02/25 21:00 02/04/25 20:18 Amitriptyline Hcl 25 Mg Tablet PO 03/04/25 20:59 25 mg HS MEGAN Administration Dextrose 25 ml 02/02/25 05:26 Dextrose 50%-Water Inj 50 Ml Syringe IV 03/04/25 05:25 Q15MIN PRN BG 50-70 responsive npo pt Dextrose 50 ml 02/02/25 05:26 Dextrose 50%-Water Inj 50 Ml Syringe IV 03/04/25 05:25 Q15MIN PRN BG <50 OR BG <70 & pt unresponsive Enoxaparin Sodium 40 mg 02/02/25 09:00 02/05/25 09:29 Enoxaparin Sod Inj 40 Mg/0.4 Ml Syringe SC 02/16/25 08:59 40 mg QDAY MEGAN Administration Glucagon 1 mg 02/02/25 05:26 Glucagon Inj 1 Mg Vial IM Q15MIN PRN BG <70, and no IV access Hydralazine HCl 10 mg 02/02/25 16:58 Hydralazine Inj 20 Mg/Ml Vial IVP 03/04/25 16:57 Q6H PRN hypertension Protocol Promethazine HCl 12.5 mg/ 50.5 mls @ 2.5 mls/min 02/04/25 17:12 Sodium Chloride IV 03/06/25 17:11 Q6HR PRN NAUSEA OR VOMITING Insulin Human Lispro 0 unit 02/02/25 07:30 02/05/25 11:11 Insulin Lispro (Admelog) 1 Unit/0.01 Ml Unit SC 03/04/25 07:29 Not Given AC MEGAN Protocol Levothyroxine Sodium 100 mcg 02/03/25 09:00 02/05/25 09:30 Levothyroxine Inj 100 Mcg Vial IV 03/05/25 08:59 100 mcg QAM MEGAN Administration Megestrol Acetate 40 mg 02/02/25 10:45 02/05/25 09:29 Megestrol Acet 20 Mg Tablet PO 03/04/25 10:44 40 mg QDAY MEGAN Administration Metoclopramide HCl 5 mg 02/02/25 10:41 Metoclopramide 5 Mg Tablet PO 03/04/25 10:40 Q8HR PRN NAUSEA OR VOMITING Protocol Ondansetron HCl 4 mg 02/02/25 05:26 02/03/25 20:45 Ondansetron Inj 2 Mg/Ml Inj 2 Ml IVP 03/04/25 05:25 4 mg Q6H PRN Administration NAUSEA OR VOMITING Protocol Pantoprazole Sodium 40 mg 02/04/25 09:15 02/05/25 09:29 Pantoprazole Inj 40 Mg Vial IVP 03/06/25 09:14 40 mg BID MEGAN Administration Pyridoxine HCl 100 mg 02/02/25 09:00 02/05/25 09:44 Pyridoxine Inj 100 Mg/Ml Vial IM 02/06/25 09:01 100 mg QDAY MEGAN Administration Thiamine HCl 100 mg 02/02/25 09:00 02/05/25 09:31 Thiamine Inj 100 Mg/Ml Vial 2 Ml IVP 03/04/25 08:59 100 mg QDAY MEGAN Administration Tramadol HCl 50 mg 02/02/25 05:26 02/04/25 20:18 Tramadol Hcl 50 Mg Tablet PO 02/07/25 05:25 50 mg Q6HR PRN Administration PAIN SCALE 4-10(Mod-Sev Plan 59 y/o F with PMHx significant for insulin dependent diabetes, hypertension, hypothyroidism, rheumatoid arthritis presents with chief complaint of intractable nausea/vomiting x 3 weeks, admitted for intractable nausea/vomiting. Gastric emptying series done today resulted in normal gastric emptying, EGD: esophagitis, biopsies form upper and lower third of esophagus, gastritis characterized by erythema, erythematous duodenopathy. #Intractable nausea/vomiting DDx: Postcholecystectomy syndrome, gastroparesis 2/2 diabetes, cyclic vomiting syndrome, sphincter of oddi dysfunction, or hypothyroidism. Patient reports intractable nausea and vomiting for the past 3 weeks, denies 50 episodes per day, typically yellow or dark green. No signs of hematemesis. Patient is also had poor p.o. intake during this time, only able to tolerate fluids. Patient received 2 L bolus normal saline in the ED. S/p cholecystectomy for similar presentation last year. Symptoms had resolved prior to surgery but are now recurring. Diabetes is now under control, her initial A1c in February 2024 when she was diagnosed was A1C:10%. Plan: -Restart meds from past hospitalization: -Amytriptyline 25mg PO HS -Megestrol acet -Metoclopramide 5mg PO PRN -Vit B6 100mg IM QD -Thiamine 100mg IVP QD - GI consulted, appreciate recommendations -Promethazine 12.5mg IV Q6HR NS 0.9% - Zofran 4 mg IV every 6 hours as needed - RUQ US: No common bile duct stones. Mild hepatomegaly fatty infiltration no focal liver lesions. ?EGD was done and showed diffuse gastritis follow-up with the pathology report for the biopsy #High anion gap metabolic acidosis resolved #Starvation ketoacidosis resolved Less likely to be euglycemic DKA, considering it requires ongoing glucagon activity often precipitated by SGLT2i use, reduced carb intake, or other stressors. Starvation ketoacidosis is after a prolonged fast or severe caloric restriction, with low to normal blood glucose. Patient presented with serum bicarb 15.8, anion gap 21. ABG showed pH 7.39, pCO2 28. Glucose 115. Suspect starvation ketosis in the setting of poor p.o. intake x 3 weeks due to intractable nausea/vomiting. Betahydroxybutryate >6.4. UA: +4 ketones Plan: - Treat nausea/vomiting as above - Monitor and replete electrolytes as needed #Hypercalcemia Patient presented with corrected calcium 12.1. Received 2 L bolus normal saline in the ED. Patient reports taking vitamin D pills at home ?Hold vitamin D on discharge ? Follow-up with the PCP in outpatient settings to address the hypercalcemia and to rule out an malignancy. - IVF as above - Monitor calcium #Insulin-dependent diabetes Patient with history of diabetes, takes insulin as needed. Does not take any other diabetic medications. A1c approximately 6% per patient. - ISS - A1c ordered -D50 IV PRN -Glucagon Inj 1 mg PRN #HTN Under control at this moment, pending med recs Plan: -Hydralazine 10mg IV Q6 PRN for systolic >180 #Hypothyroidism Unable to take PO home meds the last 3 weeks due to vomiting and nausea Plan: -Levothyroxine 100mcg IV QAM #Rheumatoid arthritis Patient history as stated. Med rec's pending. - Resume home meds when appropriate DVT prophylaxis: Lovenox GI prophylaxis: protonix 40, Zofran 4mg Diet: Carb consistent diet Lines: Peripheral IV Code status: Full code - Patient's plan and care discussed with my attending, Dr. Justin Boland MD Internal Medicine PGY-3 Attending Provider Attestation/Addendum I reviewed labs, imaging, EKG, home medications and prior available records. Face to face evaluation was performed by me. I have personally examined the patient and discussed assessment and plan with the IM team. I reviewed the resident note and agree with the plan with exceptions as below. Intractable nausea and vomiting Ordered NM gastric emptying study: WNL Status post EGD that showed gastritis/esophagitis. Continue PPI and promethazine. Low fiber diet Kept the patient in the hospital 1 more day given the persistence of symptoms. Discussed with GI Outpatient follow-up with GI for the biopsy results
--- NOTE | 2025-02-05 18:01 | PD.IMPROG ---
Documentation for date of: 02/05/25 Subjective Subjective Interval history: Patient evaluated upper endoscopy showed gastritis and duodenitis biopsies pending Exam Vital Signs Temp Pulse Resp BP Pulse Ox O2 Del Method O2 Flow Rate 97 F 93 18 130/70 95 Room Air 2 02/05/25 12:00 02/05/25 12:00 02/05/25 12:00 02/05/25 12:00 02/05/25 12:00 02/05/25 12:00 02/04/25 09:25 Objective Labs 02/05/25 04:13 02/05/25 04:13 Labs: Laboratory Results - last 24 hr 02/05/25 04:13 WBC 5.1 RBC 3.95 L Hgb 10.9 L Hct 33.3 L MCV 84 MCH 27.6 MCHC 32.7 RDW Std Deviation 51.3 H Plt Count 198 D Neut % (Auto) 38 Lymph % (Auto) 34 [place] % (Auto) 20 H Eos % (Auto) 8 Baso % (Auto) 1 Neut # (Auto) 1.9 Lymph # (Auto) 1.7 [place] # (Auto) 1.0 H Eos # (Auto) 0.4 Baso # (Auto) 0.0 Immature Gran # (Auto) 0.01 H Absolute Nucleated RBC 0.00 Immature Gran % 0 Nucleated RBC % 0 Sodium 141 Potassium 3.3 L Chloride 108 H Carbon Dioxide 21.0 Anion Gap 12 BUN < 5 L Creatinine 0.7 Estim Creat Clear Calc 99.1 eGFR > 60 BUN/Creatinine Ratio 7 L Glucose 73 L Calculated Osmolality 277 Calcium 9.4 Corrected Calcium 10.4 H Phosphorus 2.9 Magnesium 1.9 Total Bilirubin 0.4 AST 20 ALT 12 Alkaline Phosphatase 39 L Total Protein 4.8 L Albumin 2.7 L Globulin 2.1 L Albumin/Globulin Ratio 1.3 Impressions Impression: Gastritis Duodenitis continue current management Assessment & Plan A&P Narrative # Intractable nausea vomiting Etiology uncertain but most likely gastroparesis and gastric motility disorder in the setting of diabetes mellitus type 2 Plan Gastric emptying nuclear medicine study N.p.o. midnight tonight consent obtained for fiberoptic esophagogastroduodenoscopy with possible biopsy possible therapeutic intervention under intravenous moderate sedation Other medical problems include Diabetes mellitus type 2 Hypothyroidism Rheumatoid arthritis Thank you very much for the opportunity to participate in the care of this patient Time Spent With Patient Time: Total time spent is greater than 50% in coordination of care (as documented) at patient's floor/unit and/or counseling patient:
[2025-02-05 20:00] VITALS: BP 110/69; PULSE 89; RESP 18; TEMP 36.7; O2SAT 97
[2025-02-05] MEDS: AMITRIPTYLINE HCL 25 MG TABLET PO (21:23)
[2025-02-06] VITALS: BP 110/64; PULSE 86; RESP 16; TEMP 36.6; O2SAT 97
[2025-02-06 04:00] VITALS: BP 108/70; PULSE 89; RESP 18; TEMP 36.7; O2SAT 96
[2025-02-06 06:18] LABS: Basophils # (Auto) 0.0 Thou/mm3 (0.0-0.2); Basophils % (Auto) 1 % (0-2.5); Eosinophils # (Auto) 0.3 Thou/mm3 (0.0-0.5); Eosinophils % (Auto) 8 % (0-10); Hematocrit 34.3 % (36.0-46.0); Hemoglobin 11.2 g/dL (12.0-16.0); Immature Granulocytes Auto 0.01 Thou/mm3 (0.00-0.00); Lymphocytes # (Auto) 1.6 Thou/mm3 (1.0-4.8); Lymphocytes % (Auto) 37 % (10-50); Mean Corpuscular HGB Conc 32.7 g/dl (31.0-37.0); Mean Corpuscular Hemoglobin 27.8 pg (25.0-35.0); Mean Corpuscular Volume 85 fL (80-100); Monocytes # (Auto) 0.8 Thou/mm3 (0.0-0.8); Monocytes % (Auto) 18 % (0-12); Neutrophils # (Auto) 1.5 Thou/mm3 (1.8-7.7); Neutrophils % (Auto) 36 % (37-80); Nucleated Red Blood Cell # 0.00 Thou/mm3 (0.00-0.00); Nucleated Red Blood Cell % 0 /100 WBC (0); Platelet Count 232 Thou/mm3 (140-440); RDW Standard Deviation 51.9 fL (36.4-46.3); Red Blood Count 4.03 Miln/mm3 (4.00-5.20); White Blood Count 4.3 Thou/mm3 (3.6-11.0)
[2025-02-06 06:33] LABS: Alanine Aminotransferase 10 U/L (10-49); Albumin, Serum 2.7 gm/dL (3.5-5.0); Albumin/Globulin Ratio 1.2 (1.2-2.2); Alkaline Phosphatase 41 U/L (46-116); Anion Gap 9 (7-16); Aspartate Amino Transferase 20 U/L (0-34); BUN/Creatinine Ratio 7 Ratio (12-20); Bilirubin,Total 0.4 mg/dL (0.3-1.2); Blood Urea Nitrogen < 5 mg/dL (9-23); Calcium 9.6 mg/dL (8.3-10.6); Calcium (Corrected) 10.6 mg/dL (8.5-10.1); Carbon Dioxide 19.6 mMol/L (20.0-31.0); Chloride 112 mMol/L (98-107); Creatinine (Component) 0.7 mg/dL (0.6-1.3); Estimated Creatinine Clearance 99.1 mL/min (>60); Globulin 2.2 gm/dL (2.3-3.5); Glucose 82 mg/dL (74-106); Magnesium 1.7 mg/dL (1.6-2.6); Osmolality,Calculated 277 (275-295); Phosphorous 2.7 mg/dL (2.4-5.1); Potassium 3.9 mMol/L (3.4-5.1); Sodium 141 mMol/L (136-145); Total Protein 4.9 gm/dL (5.7-8.2); eGFR > 60 See Note
[2025-02-06 07:35] VITALS: BP 129/74; PULSE 82; RESP 18; TEMP 36.7; O2SAT 96
[2025-02-06] MEDS: Magnesium Sulfate 4 GM Ivpb 4 GM/50 ML BAG IV (08:15)
[2025-02-06] MEDS: ENOXAPARIN SOD INJ 40 MG/0.4 ML SYRINGE SC (08:15)
[2025-02-06] MEDS: THIAMINE INJ 100 MG/ML VIAL 2 ML IVP (08:16)
[2025-02-06] MEDS: MEGESTROL ACET 20 MG TABLET 40 MG PO (08:17)
[2025-02-06 12:00] VITALS: BP 113/74; PULSE 72; RESP 18; TEMP 36.7; O2SAT 96
--- NOTE | 2025-02-06 14:29 | PC.PT ---
Attempt to do PT evaluation at 1420. Upon approached, patient is walking to the bathroom with her RW. Patient ambulate with slow poly and mild trunk flexion, she was able to manage opening the bathroom door. Patient is already dressed. Patient states she is going home. Patient also refused Homehealth PT services. PT evaluation is not warranted at this time. Informed Ordering physician. Will cancel PT evaluation.
--- NOTE | 2025-02-06 14:39 | ESDS_ITS ---
<Statement entered by Hayley Solorio MD - 02/06/25 17:36> I have reviewed the note and agree with the resident's assessment & plan with exceptions as below. I have personally reviewed labs, imaging, home meds/prior records, examined the patient, formulated and discussed management plan with the IM team. Patient examined at bedside today. Patient continues to improve, endoscopy biopsies unremarkable at this time. Patient's nausea has improved and is medically cleared for discharge. Patient will follow-up with [facility] and is recommended to follow-up with a subspecialist assembler carbon brushes. Patient was then discharged with the following instructions listed below. Patient to continue medicines up amitriptyline, Megace and Phenergan as these helped her symptoms inpatient. Hayley Solorio, PGY-2 Internal Medicine Planned Discharge Date 02/06/25 DS: Providers Provider Date of admission: 02/02/25 05:26 Primary care physician: Miah Coles MD Admitting Provider: Clement Frazier MD Attending Provider on Admission: José Anderson MD Consults: 02/02/25 05:30 Consult to Gastroenterology Routine Comment: Intractable nausea/vomiting Consulting Provider: Arnie Reardon 02/02/25 06:48 Referral Physical Therapy Routine Comment: Physician Instructions: Referral Registered Dietitian Routine Comment: Referral Respiratory Therapy Routine Comment: Attending Provider on DC: José Anderson MD Discharging Provider: José Anderson MD DS: Diagnosis Problem List Completed Was Problem List Reviewed/Reconciled?: Yes Hospital Course Hospital Course Hospital course: 59 y/o F with PMHx significant for insulin dependent diabetes, hypertension, hypothyroidism, rheumatoid arthritis presents with chief complaint of i ntractable nausea/vomiting x 3 weeks. On presentation to the ED she was tachypneic and ill-appearing, with nondistended epigastric abdominal tenderness without rebound. Her labs indicated starvation ketoacidosis. ABG shows pH 7.39, pCO2 28, PO2 43. Imaging significant for: CT A/P showed nonspecific findings of fatty infiltration of the colon, mild distention of bladder. Patient given Zofran, 2 L bolus normal saline, 60 mEq potassium in the ED. Admitted for intractable nausea/vomiting. Gastric emptying series done today resulted in normal gastric emptying, EGD: esophagitis, biopsies form upper and lower third of esophagus, gastritis characterized by erythema, erythematous duodenopathy. Her prior discharge medications were restarted and her symptoms improved. Discharge Instructions: Follow-up with your PCP within 1 week I am prescribing you with Phenergan, take as prescribed I am prescribing you Megace, take as prescribed I am prescribing you amitriptyline, take as prescribed Follow up with Dr. Reardon GI, outpatient Follow up at the [facility], I have given you my card Follow up with a GI sub-specialist, have your PCP refer you Take your medicines as prescribed Return to ED if your symptoms worsen or return #Intractable nausea/vomiting #High anion gap metabolic acidosis resolved #Starvation ketoacidosis resolved #Hypercalcemia #Insulin-dependent diabetes #HTN #Hypothyroidism #Rheumatoid arthritis Patient's plan and care discussed with my attending, Dr. Anderson, and supervising residents Иван Boland MD, and MD Srikanth Silva MD Internal Medicine PGY-1 Time Spent with Patient Time attestation: Total time spent providing and/or coordinating discharge services: Time spent: Greater than 30 minutes Exam Vital Signs Temp Pulse Resp BP Pulse Ox O2 Del Method O2 Flow Rate 98.1 F 7 L 18 113/74 96 Room Air 2 02/06/25 12:00 02/06/25 12:00 02/06/25 12:02/06/25 12:00 02/06/25 12:00 02/06/25 12:00 02/04/25 09:25 Narrative Exam GEN: AOx3, alert, able to speak full sentences HEENT: NC/AC, oral mucosa dry, neck supple CVS: RRR, S1-S2 present, no murmurs appreciated RESP: CTAB GI: soft,non distended, abdominal discomfort on palpation. MSK: able to move all 4 limbs, no lower extremity edema SKIN: warm and dry CLERICAL SUPPORT SPECIALIST: CN II-XII and Sensation grossly intact. Discharge Plan Plan Patient Disposition: HOME (Self Care) Patient condition on transfer: Stable Care Plan Goals: Discharge instructions Follow-up with your PCP within 1 week I am prescribing you with Phenergan, take as prescribed I am prescribing you Megace, take as prescribed I am prescribing you amitriptyline, take as prescribed Follow up with Dr. Reardon GI, outpatient Follow up at the [facility], I have given you my card Follow up with a GI sub-specialist, have your PCP refer you Take your medicines as prescribed Return to ED if your symptoms worsen or return Prescriptions/Referrals Prescriptions/Med Rec: New amitriptyline 25 mg Tablet 25 mg PO HS 30 Days Qty: 30 0RF megestrol 20 mg Tablet 40 mg PO QDAY 30 Days Qty: 60 0RF promethazine 12.5 mg tablet 12.5 mg PO Q6H PRN (Reason: nausea and vomiting) 30 Days Qty: 30 0RF Rx Instructions: Take one tablet by mouth up to four times a day pantoprazole 40 mg tablet,delayed release (DR/EC) 40 mg PO BID Qty: 60 0RF Continued (DME) blood-glucose meter [FreeStyle Lite Meter] Kit See Rx Instructions .Route Qty: 1 0RF Rx Instructions: As directed (DME) lancets [FreeStyle Lancets] 28 gauge misc See Rx Instructions .Route Qty: 100 0RF Rx Instructions: As directed (DME) FreeStyle Lite Strips Strip See Rx Instructions .Route Qty: 100 0RF Rx Instructions: As directed (DME) pen needle, diabetic [Ultra-Thin II Ins Pen [place]] 29 gauge x 1/2 needle See Rx Instructions .Route Qty: 100 0RF Rx Instructions: As directed lovastatin 40 mg Tablet 40 mg PO QDAY alcohol swabs [Alcohol Prep Pads] Pads, Medicated See Rx Instructions .ROUTE .COMPLEX Qty: 200 0RF Rx Instructions: Apply before injections or glucose check. (DME) lancets 28 gauge misc See Rx Instructions .Route Qty: 100 0RF Rx Instructions: As directed insulin lispro 100 unit/mL insulin pen 1 sliding scale dose subcut USEASDIRECTD Qty: 15 0RF gabapentin 100 mg capsule 200 mg PO Q8H Patient Comments: has not started taking due to nausea/vomiting Enbrel SureClick 50 mg/mL (1 mL) pen injector 50 mg SUBCUT .Qfriday metformin 500 mg tablet 500 mg PO BIDWM Patient Comments: TAKE 1 TABLET BY MOUTH TWICE A DAY WITH MEALS levothyroxine 137 mcg tablet 137 mcg PO QAMAC Patient Comments: TAKE 1/2 TABLET BY MOUTH EVERY DAY IN THE MORNING ON EMPTY STOMACH Held hydrochlorothiazide 25 mg Tablet 25 mg PO QAM Hold Instructions: resume with pcp Referrals: Miah Coles MD [Primary Care Provider] - Patient/Caregiver Discharge Instructions Discharge Activity: activity as tolerated Education Materials: Cyclic Vomiting Syndrome Ch, ED Vomiting (Adult) Print Language: Albanian Stand Alone Forms: Stacie Award Info., Patient Portal Info Letter Discharge Order Discharge Orders: Discharge (Routine); Ordered 02/06/25 Ordered By: Hayley Solorio Quality Discharge Quality Measures VTE prophylaxis Attestestation MD Attestation I reviewed labs, imaging, EKG, home medications and prior available records. Face to face evaluation was performed by me. I have personally examined the patient and discussed assessment and plan with the IM team. I reviewed the resident note and agree with the plan with exceptions as below. Intractable nausea and vomiting Ordered NM gastric emptying study: WNL Status post EGD that showed gastritis/esophagitis. Continue PPI and promethazine. Low fiber diet Outpatient follow-up with GI for the biopsy results Time spent is 40 minutes. More than 50% of the time was spent on patient education and coordination of care.
--- NOTE | 2025-02-06 14:40 | PC.SS ---
Follow up note: SS spoke to patient this afternoon about going home. Physician ordered a PT eval. Patient has been ambulatory with her walker. Patient states she already worked with PT and showed them she can walk. Patient dressed and ready to go home. Patient states her cousin will be picking her up today. No further d/c needs.
[2025-02-06 15:11] VITALS: BP 115/76; PULSE 76; RESP 18; TEMP 36.7; O2SAT 96
== END 2025-02-06 15:20 | disposition home or self-care (01) | DRG 48 ==
LOC: SERX 04:58 → SERHOLD 06:05 → S3SX 06:30
PROVIDERS: Nurse Practitioner Family; Specialist; Student in an Organized Health Care Education/Training Program; Admitting Provider Student in an Organized Health Care Education/Training Program; Emergency Provider Emergency Medicine; PCP Family Medicine; Visit Provider Student in an Organized Health Care Education/Training Program
PROC: 0DB38ZX Excision of Lower Esophagus, Via Natural or Artificial Opening Endoscopic, Diagnostic (ICD-10-PCS; CPT 43239; principal; 2025-02-04 08:00)
DX: E11.43 Type 2 diabetes mellitus with diabetic autonomic (poly)neuropathy (principal); K31.84 Gastroparesis; I10 Essential (primary) hypertension; E03.9 Hypothyroidism, unspecified; M06.9 Rheumatoid arthritis, unspecified; Z90.49 Acquired absence of other specified parts of digestive tract; G89.29 Other chronic pain; N32.89 Other specified disorders of bladder; E83.52 Hypercalcemia; E78.5 Hyperlipidemia, unspecified; E66.9 Obesity, unspecified; K29.80 Duodenitis without bleeding; K20.90 Esophagitis, unspecified without bleeding; K82.8 Other specified diseases of gallbladder; K29.70 Gastritis, unspecified, without bleeding; E87.6 Hypokalemia; E87.29 Other acidosis; Z79.4 Long term (current) use of insulin
CPT/HCPCS: 36415; 74176; 76700; 78264; 80053; 81001; 82010; 83036; 83605; 83690; 83735; 83880; 83970; 84100; 84439; 84443; 84484; 85025; 93005; 96374; 96376; 99284; A4649; A9541; J0131; J1200; J1650; J2250; J2405; J2470; J3010; J3411; J3415; J3420; J3475; J3480; J7030; J7121; J7999; A9270

== ENCOUNTER 2025-03-01 01:13 | Inpatient (IN) | payer MEDICAID, SELFPAY ==
[2025-03-01] VITALS (12 sets, daily range): BP systolic 106–150; BP diastolic 76–96; PULSE 73–104; RESP 14–18; TEMP 36.2–37.7; O2SAT 81–99; BMI 36.1; BMI 33.0
--- NOTE | 2025-03-01 01:16 | EDNOTE_ITS ---
Nausea/Vomit./Diarrhea-RME/HPI General Chief complaint: Nausea/Vomiting/Diarrhea Stated complaint: Nausea/Vomiting Time Seen by Provider: 03/01/25 01:27 Arrival date/time: 03/01/25 01:13 RME / HPI RME / HPI Narrative: See MDM for Dr. Patterson's HPI documentation. Related Data Home Medications ?Medication ?Instructions ?Recorded ?Confirmed hydrochlorothiazide 25 mg tablet 25 mg PO QAM 03/25/24 03/01/25 Held on 02/06/25. Instructions: resume with pcp lovastatin 40 mg tablet 40 mg PO QDAY 03/25/2403/01 etanercept 50 mg/mL (1 mL) 50 mg subcut .Qfriday 02/0203/01/25 subcutaneous pen injector (Enbrel SureClick) gabapentin 100 mg capsule 200 mg PO Q8H 02/02/2503/01 levothyroxine 137 mcg tablet 137 mcg PO QAMAC 02/02/25 03/01/25 metformin 500 mg tablet 500 mg PO BIDWM 02/02/25 Previous Rx's ?Medication ?Instructions ?Recorded lancets 28 gauge #100 ea 03/31/24 blood sugar diagnostic (FreeStyle #100 ea 04/02/24 Lite Strips) blood-glucose meter (FreeStyle #1 ea 04/02/24 Lite Meter kit) lancets 28 gauge (FreeStyle #100 ea 04/02/24 Lancets) pen needle, diabetic 29 gauge x #100 ea 04/02/24 1/2 (Ultra-Thin II Insulin Pen [place]) insulin lispro 100 unit/mL 1 sliding scale dose subcut 06/10/24 subcutaneous pen USEASDIRECTD #15 mL amitriptyline 25 mg tablet 25 mg PO HS 30 days #30 tab s 02/06/25 megestrol 20 mg tablet 40 mg (2 x 20 mg) PO QDAY 30 days 02/06/25 #60 tabs promethazine 12.5 mg tablet 12.5 mg PO Q6H PRN nausea and 02/06/25 vomiting 1 month #30 tabs Allergies Allergy/AdvReac Type Severity Reaction Status Date / Time kiwi Allergy Verified 03/01/25 04:00 Review of Systems Review of Systems Systems Reviewed: All systems reviewed, normal except as documented Past Medical History Past Medical History NEUROLOGIC: Negative Neurological Disorders or Seizures CARDIAC: Positive Hypercholesterolemia and Hypertension; Negative Congestive Heart Failure RESPIRATORY: Negative Chronic Obstructive Pulmonary Disease (COPD) or Asthma GASTROINTESTINAL: Positive Gall Bladder Disease GENITOURINARY: Negative Renal Disease REPRODUCTIVE: Negative Previous Pregnancies MUSCULOSKELETAL: Positive Rheumatoid Arthritis ENDOCRINE: Positive Diabetes Mellitus Type 2 and Hypothyroidism; Negative Diabetes Mellitus Type 1 HEMATOLOGIC: Positive Anemia OTHER HISTORY: Negative Blood Transfusions, Blood Transfusion Reaction (n/a), Anesthesia Reactions or Cancer Surgical History SURGICAL: Negative Cardiac Surgery or Abdominal Surgery Social History SMOKING STATUS: Never smoker SUBSTANCE USE: does not use ED Exam Narrative Physical exam: See [facility] for Dr. Patterson's physical exam documentation. Course Quality Measures none Orders Category Date Time Status Bedside COVID-19 Antigen Test NOW Care 03/01/25 01:19 Active Bedside Influenza A&B Antigen Test NOW Care 03/01/25 01:19 Completed COVID-19 Screening Questionnaire NOW Care 03/01/25 05:17 Completed Decision to Admit X1 Care 03/01/25 05:17 Completed EKG (ED ONLY) *Do not use* NOW Care 03/01/25 03:19 Completed Saline [Insert IV] NOW Care 03/01/25 01:19 Completed Straight [In and Out Catheter] X1 Care 03/01/25 01:[address] chest abdomen pelvis wo Stat Exams 03/01/25 01:58 Completed EKG (ED Only) Stat Exams 03/01/25 03:19 Draft US gall bladder Stat Exams 03/01/25 01:20 Completed US pelvic complete Stat Exams 03/01/25 01:20 Completed ABG [Arterial Blood Gas] Stat Lab 03/01/25 02:05 Completed Alcohol, Blood Medical Stat Lab 03/01/25 01:30 Completed Ammonia Stat Lab 03/01/25 01:30 Completed Amylase Stat Lab 03/01/25 01:30 Completed BNP [B-Type Natriuretic Peptide] Stat Lab 03/01/25 01:30 Completed BNP [B-Type Natriuretic Peptide] Stat Lab 03/01/25 03:31 Completed Beta Hydroxybutyrate Stat Lab 03/01/25 01:30 Completed Blood Culture (Lab) Stat Lab 03/01/25 02:14 Received CBC Stat Lab 03/01/25 01:30 Completed CMP [Comprehensive Metabolic Panel] Stat Lab 03/01/25 01:30 Completed CRP [C-Reactive Protein] Stat Lab 03/01/25 01:30 Completed Creatine Kinase Stat Lab 03/01/25 01:30 Completed Drug Screen,Urine Stat Lab 03/01/25 03:20 Completed ESR [Sed Rate (ESR)] Stat Lab 03/01/25 01:30 Completed Electrolytes, Urine Random Stat Lab 03/01/25 03:20 Completed Free T3 Stat Lab 03/01/25 01:30 Completed Free T4 (Free Thyroxine) Stat Lab 03/01/25 01:30 Completed Hemoglobin A1C [Glycohemoglobin w (eAG)] Stat Lab 03/01/25 01:30 Completed Lactate (Lactic Acid) Stat Lab 03/01/25 01:30 Completed Lactic Acid, 3 HR Stat Lab 03/01/25 04:44 Completed Liver Panel Stat Lab 03/01/25 01:30 Completed Magnesium Stat Lab 03/01/25 01:30 Completed Procalcitonin Stat Lab 03/01/25 01:30 Completed Renal Function Panel Stat Lab 03/01/25 04:44 Completed Thyroid Stimulating Hormone Stat Lab 03/01/25 01:30 Completed Troponin I Stat Lab 03/01/25 03:31 Completed UA, C/S IF [Urinalysis, C/S if Indicated] Stat Lab 03/01/25 03:20 Completed Dextrose 5%-Ns [D5-Ns] 1,000 ml Med 03/01/25 05:45 Active IV 100 mls/hr Diazepam Inj [Valium Inj] Med 03/01/25 03:46 Discontinued 2.5 mg IVP X1 ONE Morphine* Inj Med 03/01/25 01:19 Discontinued 4 mg IV X1 ONE Ondansetron Inj [Zofran Inj] Med 03/01/25 01:19 Discontinued 4 mg IVP X1 ONE POTASSIUM CHL 10 mEq IVPB [Kcl Ivpb] Med 03/01/25 02:36 Discontinued 10 meq in 100 ml IV X1 POTASSIUM CHL 10 mEq IVPB [Kcl Ivpb] Med 03/01/25 03:40 Discontinued 10 meq in 100 ml IV X1 POTASSIUM CHL 10% Liq 15 ML Med 03/01/25 02:36 Discontinued 40 meq PO X1 ONE Sodium Chloride 0.9% 1000 ml [Ns] 1,000 ml Med 03/01/25 02:56 Discontinued IV 100 mls/hr Sodium Chloride 0.9% 1000 ml [Ns] 1,000 ml Med 03/01/25 01:19 Discontinued IV 999 mls/hr Vital Signs Vital signs: Vital Signs Temperature 97.6 F 03/01/25 01:16 Pulse Rate 102 H 03/01/25 01:16 Respiratory Rate 16 03/01/25 01:16 Blood Pressure 122/89 H 03/01/25 01:16 Pulse Oximetry (%) 97 03/01/25 01:16 Oxygen Delivery Method Room Air 03/01/25 01:16 Nausea/Vomiting/Diarrhea MDM Narrative MDM Narrative:: This section includes all my notes and documentations, including HPI, PE, and ED course. Gael Patterson MD HPI: 60yo female BIBA from home with nausea, vomiting, and diarrhea for the last couple weeks. But severe in the past few days. With worsening malaise and fatigue. No hematemesis or coffee-ground emesis. No rectal bleeding or tarry stools. No other complaints. ROS: All negative except as documented in HPI. Physical Exam: General: Lethargic. Appearance of severe malaise noted. Eyes: Conjunctivae and lids clear. PERRL. EOMI. ENT: No nasal congestion. Neck: Supple. No carotid bruit. No JVD. Heart: RRR. Lungs: No respiratory distress. Decreased air movement. No severe rhonchi, wheezing, rales. Abdomen: Soft and upper abdominal tenderness, difficult to localize. Normal bowel sounds. No distension. No rebound or guarding. Back: No CVA tenderness. Skin: Warm and dry. Neuro: Oriented X 3. Cranial nerves II to XII grossly normal. No peripheral motor deficits. I reviewed EMS notes. I reviewed all diagnostic test results. My review of the gallbladder US report is NAD. My review of the pelvis US report is uterine mass. My review of the CT chest abdomen pelvis report is uterine mass. Blood tests remarkable for ESR 60, K 2.7, Ca 10.2, lactic Acid 2.3, CRP 3.6, Beta Hydroxybutyrate 5.4, TSH 44.50. ABG showed pH 7.47, pCO2 22, pHCO3 16. COVID/Influenza negative. UA unremarkable. At this point, diagnoses include: Intractable vomiting Metabolic acidosis Respiratory alkalosis Hypokalemia Hypercalcemia Hypothyroidism Treatment here included: Morphine Zofran IV fluid IV KCl Valium Some improvement noted. I discussed the case with our hospitalist. About the presentation and exam and diagnostics and treatments here. And need of further care in the hospital. Will accept the patient. Gael Patterson MD Patient data External records reviewed:: [facility] previous records (Per chart review, patient was admitted here on 02/02/25 for intractable nausea and vomiting. ) and EMS form Clinical information provided by:: patient and EMS Social determinants that could affect healthcare access:: none Patient has the following chronic illnesses:: IDDM, HTN, hypothyroidism, rheumatoid arthritis How is presenting disease/condition affected by chronic disease/condition?: exacerbated by Evaluation data The following diagnostics were reviewed and interpreted by me:: lab results, radiology exam(s) and EKG tracing(s) (My interpretation of the EKG is: Sinus rhythm (93 bpm) with nonspecific ST-T changes. Gael Patterson MD) Lab and/or radiology exams considered but not ordered:: none Interpretation Summary: I reviewed all diagnostic test results. My review of the gallbladder US report is NAD. My review of the pelvis US report is uterine mass. My review of the CT chest abdomen pelvis report is uterine mass. Blood tests remarkable for ESR 60, K 2.7, Ca 10.2, lactic Acid 2.3, CRP 3.6, Beta Hydroxybutyrate 5.4, TSH 44.50. ABG showed pH 7.47, pCO2 22, pHCO3 16. COVID/Influenza negative. UA unremarkable. Medications / Prescriptions Medications / Prescriptions considered but not ordered:: none Medication administrations:: Medication Administration History Atorvastatin Calcium (Atorvastatin Calcium 20 Mg Tablet) 10 mg PO HS MEGAN Stop: 03/31/25 20:59 Dextrose (Dextrose 50%-Water Inj 50 Ml Syringe) 25 ml IV Q15MIN PRN PRN Reason: BG 50-70 responsive npo pt Stop: 03/31/25 06:28 Dextrose (Dextrose 50%-Water Inj 50 Ml Syringe) 50 ml IV Q15MIN PRN PRN Reason: BG <50 OR BG <70 & pt unresponsive Stop: 03/31/25 06:28 Gabapentin (Gabapentin 100 Mg Capsule) 200 mg PO TID MEGAN Stop: 03/31/25 13:59 Last Admin: 03/01/25 13:12 Dose: 200 mg Documented By: RAJEEV Glucagon (Glucagon Inj 1 Mg Vial) 1 mg IM Q15MIN PRN PRN Reason: BG <70, and no IV access Heparin Sodium (Porcine) (Heparin Sod Inj 5000 Unit/Ml Vial) 5,000 unit SC BID PENDING SALE TO [facility] Stop: 03/15/25 08:59 Last Admin: 03/01/25 08:22 Dose: 5,000 unit Documented By: RAJEEV Co-signed By: KESHA Dextrose/Sodium Chloride (D5-Ns) 1,000 mls @ 100 mls/hr IV .Q10H MEGAN Stop: 03/31/25 05:44 Last Admin: 03/01/25 17:24 Dose: 100 mls/hr Documented By: Infusion: 03/01/25 16:06 Dose: Infused Documented By: Admin: 03/01/25 06:06 Dose: 100 mls/hr Documented By: MANI Acetaminophen (Ofirmev Inj) 1,000 mg in 100 mls @ 250 mls/hr IV Q6HR PRN PRN Reason: fever >100.4 or Pain 1-4 Stop: 03/02/25 05:58 Insulin Human Lispro (Insulin Lispro (Admelog) 1 Unit/0.01 Ml Unit) 0 unit SC Q6H MEGAN; Protocol Stop: 03/31/25 06:29 Last Admin: 03/01/25 18:48 Dose: 1 unit Documented By: RAJEEV Co-signed By: LARRY Admin: 03/01/25 11:52 Dose: Not Given Documented By: RAJEEV Non-Admin Reason: Per Protocol Admin: 03/01/25 06:30 Dose: Not Given Documented By: RAJEEV Non-Admin Reason: Per Protocol Levothyroxine Sodium (Levothyroxine Inj 100 Mcg Vial) 96 mcg IV QDAY MEGAN Stop: 03/31/25 08:59 Last Admin: 03/01/25 10:03 Dose: 96 mcg Documented By: RAJEEV Megestrol Acetate (Megestrol Acet Susp 400 Mg/10 Ml Udc) 40 mg PO QDAY MEGAN Stop: 03/31/25 09:59 Last Admin: 03/01/25 10:04 Dose: 40 mg Documented By: RAJEEV Comments: mg Morphine Sulfate (Morphine Sulf Inj 4 Mg/Ml Vial) 2 mg IVP Q4HR PRN PRN Reason: PAIN SCALE 4-10 Stop: 03/06/25 05:44 Last Admin: 03/01/25 13:22 Dose: 2 mg Documented By: RAJEEV Comments: mg Ondansetron HCl (Ondansetron Inj 2 Mg/Ml Inj 2 Ml) 4 mg IVP Q6HR PRN; Protocol PRN Reason: NAUSEA OR VOMITING Stop: 03/31/25 05:44 Pantoprazole Sodium (Pantoprazole Inj 40 Mg Vial) 40 mg IVP QDAY MEGAN Stop: 03/31/25 08:59 Last Admin: 03/01/25 08:22 Dose: 40 mg Documented By: RAJEEV Promethazine HCl (Promethazine Hcl 25 Mg Tablet) 12.5 mg PO Q6H PRN PRN Reason: nausea and vomiting Stop: 03/31/25 06:30 Discontinued Medications Acetaminophen (Acetaminophen 325 Mg Tablet) 650 mg PO Q6H PRN PRN Reason: Fever >100.4 Stop: 03/31/25 05:44 Diazepam (Diazepam Inj 5 Mg/Ml Vial 2 Ml) 2.5 mg IVP X1 ONE Stop: 03/01/25 03:47 Last Admin: 03/01/25 03:56 Dose: 2.5 mg Documented By: MANI Sodium Chloride (Ns) 1,000 mls @ 999 mls/hr IV .Q1H1M ONE Stop: 03/01/25 02:19 Last Infusion: 03/01/25 02:37 Dose: Infused Documented By: Admin: 03/01/25 01:35 Dose: 999 mls/hr Documented By: MANI Potassium Chloride (Kcl Ivpb) 10 meq in 100 mls @ 100 mls/hr IV X1 ONE Stop: 03/01/25 03:35 Last Infusion: 03/01/25 04:09 Dose: Infused Documented By: Admin: 03/01/25 02:52 Dose: 100 mls/hr Documented By: MANI Sodium Chloride (Ns) 1,000 mls @ 100 mls/hr IV .Q10H MEGAN Stop: 03/31/25 02:55 Last Admin: 03/01/25 02:59 Dose: 100 mls/hr Documented By: MANI Potassium Chloride (Kcl Ivpb) 10 meq in 100 mls @ 100 mls/hr IV X1 ONE Stop: 03/01/25 04:39 Last Infusion: 03/01/25 05:21 Dose: Infused Documented By: Admin: 03/01/25 04:09 Dose: 100 mls/hr Documented By: MANI Thiamine HCl 100 mg/ Sodium (Chloride) 101 mls @ 202 mls/hr IV X1 ONE Stop: 03/01/25 06:14 Last Admin: 03/01/25 06:02 Dose: 202 mls/hr Documented By: MANI Acetaminophen (Ofirmev Inj) 1,000 mg in 100 mls @ 250 mls/hr IV Q6HR PRN PRN Reason: Pain 1-4 Potassium Chloride (Kcl Ivpb) 10 meq in 100 mls @ 100 mls/hr IV Q1H MEGAN Stop: 03/01/25 12:43 Last Admin: 03/01/25 14:59 Dose: 100 mls/hr Documented By: Infusion: 03/01/25 14:14 Dose: Infused Documented By: Admin: 03/01/25 13:14 Dose: 100 mls/hr Documented By: Infusion: 03/01/25 12:45 Dose: Infused Documented By: Admin: 03/01/25 11:45 Dose: 100 mls/hr Documented By: Infusion: 03/01/25 08:44 Dose: Infused Documented By: Admin: 03/01/25 07:44 Dose: 100 mls/hr Documented By: Infusion: 03/01/25 07:22 Dose: Infused Documented By: Admin: 03/01/25 06:22 Dose: 100 mls/hr Documented By: RAJEEV Megestrol Acetate (Megestrol Acet 20 Mg Tablet) 40 mg PO QDAY MEGAN Stop: 03/31/25 08:59 Morphine Sulfate (Morphine Sulf Inj 4 Mg/Ml Vial) 4 mg IV X1 ONE Stop: 03/01/25 01:20 Last Admin: 03/01/25 01:36 Dose: 4 mg Documented By: MANI Ondansetron HCl (Ondansetron Inj 2 Mg/Ml Inj 2 Ml) 4 mg IVP X1 ONE; Protocol Stop: 03/01/25 01:20 Last Admin: 03/01/25 01:36 Dose: 4 mg Documented By: MANI Ondansetron HCl (Ondansetron Inj 2 Mg/Ml Inj 2 Ml) 4 mg IVP Q6H PRN; Protocol PRN Reason: NAUSEA OR VOMITING Stop: 03/31/25 05:44 Potassium Chloride (Potassium Chloride 10% 20 Meq/15 Ml Udc) 40 meq PO X1 ONE Stop: 03/01/25 02:37 Last Admin: 03/01/25 02:53 Dose: Not Given Documented By: DT Non-Admin Reason: Patient Refused Thiamine HCl (Thiamine Inj 100 Mg/Ml Vial 2 Ml) Confirm Administered Dose 200 mg .ROUTE .STK-MED ONE Stop: 03/01/25 06:00 Last Admin: 03/01/25 06:07 Dose: Not Given Documented By: DT Non-Admin Reason: Duplicate Medication on eMAR Treatment here from me included: Morphine Zofran IV fluid IV KCl Valium Consultations Consultation(s) initiated? (list below): Yes Consultation #1 (Physician, Specialty, Details): I discussed the case with our hospitalist. About the presentation and exam and diagnostics and treatments here. And need of further care in the hospital. Will accept the patient. Diagnosis Nausea Differential Diagnosis: traveler's diarrhea, food poisoning, gastroente ritis, drug-induced nausea and vomiting and dehydration Most likely diagnosis given after review of the tests above:: Intractable vomiting Metabolic acidosis Respiratory alkalosis Hypokalemia Hypercalcemia Hypothyroidism Admission Indicated Admission indicated?: indicated Explain why admission is indicated or not indicated:: Intractable vomiting Metabolic acidosis Respiratory alkalosis Hypokalemia Hypercalcemia Hypothyroidism Admission Request Was there a request for admission?: Yes Admission Attestation Admission request attestation: Discussed case with Hospitalist service regarding admission. Discussed patients ED course, exam findings, labs, and radiology results. The Hospitalist [agrees] to accept the patient for admission. Disposition Plan Disposition Plan: Admit Discharge Plan Plan Patient Disposition: Admit Acute Care w/in Hospital Problem List Clinical Impression: Intractable vomiting, Hypokalemia, Metabolic acidosis, Respiratory alkalosis, Hypercalcemia, Hypothyroidism
--- NOTE | 2025-03-01 01:20 | XR_ITS ---
Examination: Pelvic ultrasound, transabdominal, complete Technique: Transabdominal ultrasound of the pelvis performed using grayscale imaging Date and time of exam: March 01, 2025, 1451 hrs. Indications: History uterine fibroid degeneration Findings: Uterus 7.3 cm Uterine hyperechoic mass 4.1 x 3.9 x 2.4 cm Ovaries obscured by bowel gas Impression: Probable fat-containing mass within the uterus, however, recommend MRI pelvis follow-up pre and postcontrast
--- NOTE | 2025-03-01 01:20 | XR_ITS ---
Examination: Abdomen sonogram, Limited Date and time: March 01, 2025, 0251 hrs. Indications: Abdominal pain today with nausea, history cholecystectomy Technique: Real-time ayala scale transabdominal sonographic images of the upper abdomen obtained. Findings: Absent gallbladder Common bile duct 0.6 cm Pancreatic head 2.5 cm Liver 14.9 cm fatty infiltration Normal hepatopedal portal venous flow Patent IVC Impression: Absent gallbladder No common bile duct stones
[2025-03-01] MEDS: SODIUM CHLORIDE 0.9% 1000 ML 1,000 ML 999 ML IV (01:35)
[2025-03-01] MEDS: ONDANSETRON INJ 2 MG/ML INJ 2 ML 4 MG IVP (01:36)
[2025-03-01] MEDS: MORPHINE SULF INJ 4 MG/ML VIAL IV (01:36)
[2025-03-01 01:39] LABS: Lactate (Lactic Acid) 2.3 mMol/L (0.4-2.0)
[2025-03-01 01:45] LABS: Beta Hydroxybutyrate 5.4 mmol/L (<0.6)
[2025-03-01 01:52] LABS: Sed Rate (ESR) 60 mm/hr (0-30)
[2025-03-01 01:53] LABS: Glucose Estimated Average 105 mg/dL (80-131); Hemoglobin A1C 5.3 % Hgb (4.8-6.0)
[2025-03-01 01:54] LABS: Basophils # (Auto) 0.1 Thou/mm3 (0.0-0.2); Basophils % (Auto) 1 % (0-2.5); Eosinophils # (Auto) 0.1 Thou/mm3 (0.0-0.5); Eosinophils % (Auto) 2 % (0-10); Hematocrit 42.0 % (36.0-46.0); Hemoglobin 14.1 g/dL (12.0-16.0); Immature Granulocytes Auto 0.02 Thou/mm3 (0.00-0.00); Lymphocytes # (Auto) 1.7 Thou/mm3 (1.0-4.8); Lymphocytes % (Auto) 22 % (10-50); Mean Corpuscular HGB Conc 33.6 g/dl (31.0-37.0); Mean Corpuscular Hemoglobin 27.6 pg (25.0-35.0); Mean Corpuscular Volume 82 fL (80-100); Monocytes # (Auto) 1.2 Thou/mm3 (0.0-0.8); Monocytes % (Auto) 15 % (0-12); Neutrophils # (Auto) 4.6 Thou/mm3 (1.8-7.7); Neutrophils % (Auto) 59 % (37-80); Nucleated Red Blood Cell # 0.00 Thou/mm3 (0.00-0.00); Nucleated Red Blood Cell % 0 /100 WBC (0); Platelet Count 361 Thou/mm3 (140-440); RDW Standard Deviation 51.7 fL (36.4-46.3); Red Blood Count 5.10 Miln/mm3 (4.00-5.20); White Blood Count 7.8 Thou/mm3 (3.6-11.0)
--- NOTE | 2025-03-01 01:58 | XR_ITS ---
Examination: CT chest, without intravenous contrast. CT abdomen, without intravenous contrast. CT pelvis, without intravenous contrast. 2-D sagittal and coronal reconstructions. 3-D reconstructions. Date and time of exam:March 01, 2025, 0238 hrs. Indications: Shortness of breath chest pain abdominal pain nausea vomiting beginning 2 weeks ago CTDI vol (mgy) 10.61 DLP (MGycm)700 Technique: Multiple CT images, 3.0 mm slice thickness, obtained chest, abdomen, pelvis, with the high-resolution 64 slice scanner.. Sagittal and coronal 2-D reconstructions are obtained. 3-D reconstructions Low dose protocols were performed. One or more of the following dose reduction techniques were used; automated exposure control, adjustment of the mA and/or KV according to patient size, use of iterative reconstruction technique. Findings: No thoracic aortic aneurysmal dilatation Pulmonary artery segments are not enlarged. No mediastinal lymphadenopathy. No pneumonia pulmonary edema or pleural disease. Fatty infiltration throughout the liver with mild hepatomegaly Absent gallbladder No splenic pancreatic or adrenal mass. No hydronephrosis or renal calculi Aorta normal size. No bowel obstruction No pericecal inflammatory change Mass in the fundus of uterus containing fat, measuring at least 33 mm Grade 1 spondylolisthesis L5 on S1 Minimally air in the urinary bladder Impression: No pneumonia pulmonary edema or pleural disease No bowel obstruction No hydronephrosis 33 mm fat-containing mass in the uterus
[2025-03-01 02:12] LABS: B-Type Natriuretic Peptide < 20 pg/mL (0-100)
[2025-03-01 02:15] LABS: Base Excess -6 (-3-3); HCO3 16 mEq/L (20-26); Inspired Oxygen, FIO2 21 %; O2 Saturation 98 % (91-98); PCO2 22 mmHg (32.0-48.0); PO2 88 mmHg (83-108); pH, Arterial 7.47 (7.35-7.45)
[2025-03-01 02:17] LABS: Allen Test Performed/OK; Puncture Site Right Radial
[2025-03-01 02:34] LABS: Alanine Aminotransferase 7 U/L (10-49); Albumin, Serum 3.8 gm/dL (3.4-4.8); Albumin/Globulin Ratio 1.2 (1.2-2.2); Alcohol, Blood Medical < 3.0 mg/dL (0-10.0); Alkaline Phosphatase 58 U/L (46-116); Ammonia < 10 uMol/L (11-32); Amylase 47 U/L (30-118); Anion Gap 18 (7-16); Aspartate Amino Transferase 30 U/L (0-34); BUN/Creatinine Ratio 6 Ratio (12-20); Bilirubin,Direct 0.2 mg/dL (0.0-0.3); Bilirubin,Total 0.8 mg/dL (0.3-1.2); Blood Urea Nitrogen < 5 mg/dL (9-23); C-Reactive Protein 3.6 mg/dL (0.0-0.9); Calcium 10.0 mg/dL (8.3-10.6); Calcium (Corrected) 10.2 mg/dL (8.5-10.1); Carbon Dioxide 19.4 mMol/L (20.0-31.0); Chloride 102 mMol/L (98-107); Creatine Kinase 53 U/L (34-171); Creatinine (Component) 0.9 mg/dL (0.6-1.3); Estimated Creatinine Clearance 77.2 mL/min (>60); Globulin 3.2 gm/dL (2.3-3.5); Glucose 107 mg/dL (74-106); Magnesium 1.7 mg/dL (1.6-2.6); Osmolality,Calculated 274 (275-295); Procalcitonin 0.11 ng/ml (0.0-0.49); Sodium 139 mMol/L (136-145); Thyroid Stimulating Hormone 44.50 uIU/mL (0.55-4.78); Total Protein 7.0 gm/dL (5.7-8.2); eGFR > 60 See Note
[2025-03-01 02:36] LABS: Potassium 2.7 mMol/L (3.4-5.1)
[2025-03-01] MEDS: POTASSIUM CHL 10 mEq IVPB 10 MEQ/100 ML BAG 100 MEQ IV ×8 (02:52→19:12)
[2025-03-01] MEDS: SODIUM CHLORIDE 0.9% 1000 ML 1,000 ML 100 ML IV (02:59)
--- NOTE | 2025-03-01 03:19 | EKG_ITS ---
[facility] Test Date: 2025-03-01 Pat Name: KIM MCCAULEY Department: Room: - Gender: Female Manager Fire: : 1965 Requested By: Gael Keane Order Number: [id number] Reading MD: Gael Keane Measurements Intervals [place] Rate: 93 P: 14 NJ: 160 QRS: -46 QRSD: 83 T: 46 QT: 345 QTc: 429 Interpretive Statements SINUS RHYTHM LOW QRS VOLTAGE IN PRECORDIAL LEADS [QRS DEFLECTION < 1.0 mV IN CHEST LEADS] LEFT ANTERIOR FASCICULAR BLOCK [QRS AXIS <= -45, QR IN I, RS IN II] MINIMAL ST DEPRESSION [0.025+ mV ST DEPRESSION] Compared to ECG 02/02/2025 02:56:06 Low QRS voltage now present Sinus tachycardia no longer present ST (T wave) deviation still present /store/S0/[id number]/[id number].pdf
[2025-03-01 03:23] LABS: Free T3 2.1 pg/mL (2.3-4.2); Free T4 (Free Thyroxine) 0.66 ng/dL (0.89-1.76)
[2025-03-01 03:26] LABS: Collection Type, Urine Clean Catch
[2025-03-01 03:37] LABS: Bacteria,Urine Rare; Bilirubin,Urine Negative (Negative); Blood,Urine Negative (Negative); Clarity,Urine Clear (Clear/Hazy); Color,Urine Lt-Yellow (Lt Yel-Yel); Culture Indicated,Urine Not Indicated; Glucose, Urine Negative (Negative); Ketones,Urine 2+ (Negative); Leukocyte Esterase,Urine Negative (Negative); Nitrite,Urine Negative (Negative); PH,Urine 6.5 (5.0-7.0); Protein,Urine Negative (Neg - Trace); RBC,Urine 1 /hpf (0-3); Specific Gravity,Urine 1.005 (1.001-1.035); Squamous Epithelial Cell,Urine 7 /hpf (0-5); Urobilinogen,Urine Negative mg/dL (0.0-1.0); WBC,Urine 3 /hpf (0-5)
[2025-03-01 03:49] LABS: Amphetamine/Methamp Scrn,U Negative (Negative); Barbiturate Screen,Urine Negative (Negative); Benzodiazepines Screen,Urine Negative (Negative); Benzoylecgonine Screen, Ur Negative (Negative); Fentanyl Screen,Urine Negative (Negative); Opiate Screen,Urine Positive (Negative); THC Screen,Urine Negative (Negative)
[2025-03-01] MEDS: DIAZEPAM INJ 5 MG/ML VIAL 2 ML 2.5 MG IVP (03:56)
[2025-03-01 03:58] LABS: B-Type Natriuretic Peptide < 20 pg/mL (0-100)
[2025-03-01 03:59] LABS: Troponin I < 0.002 ng/mL (0.0-0.045)
--- NOTE | 2025-03-01 04:20 | PRELIM_ITS ---
Gallbladder ultrasound with Doppler and wave Doppler spectral analysis. March 01, 2025 at 0251 hours Clinical history: Right upper quadrant tenderness. Comparison: None available at the time of this report. Findings: Liver steatosis. Hepatomegaly. No biliary duct dilation. Status post cholecystectomy. The common duct is normal in caliber at 6.0 mm. No free fluid is demonstrated on the submitted images. The portal vein is patent with hepatopetal flow and normal with Doppler spectral analysis. Impression: Hepatomegaly associated with liver steatosis, suspicious for steatohepatitis. Report Electronically Signed By: Varinder Troy 03/01/2025 4:19:46 AM [EST]
--- NOTE | 2025-03-01 04:25 | PRELIM_ITS ---
CT scan of the chest, abdomen and pelvis without intravenous contrast (axial sections with sagittal and coronal reformats) March 01, 2025 at 0238 hours Clinical History: Shortness of breath and abdominal pain. Comparison: None available at the time of this report. Findings: The lungs are otherwise clear. Mild peribronchial thickening. There is no pleural effusion or pneumothorax. The aorta is within normal limits for age on this noncontrast study. No evidence of mediastinal mass or lymphadenopathy. There is no pericardial effusion. The spleen, pancreas, adrenals and kidneys are unremarkable on this noncontrast study. Hepatomegaly. Liver steatosis. S/p cholecystectomy. No blood or duct dilation. No evidence of bowel obstruction. No evidence of appendicitis. Trace of air within the urinary bladder. There is no free fluid or free air. Degenerative changes of the imaged portions of the spine. Chronic multilevel disc disease. No acute fractures. Bilateral L5 pars defects associated with mild anterolisthesis of L5. Vascular calcifications. Fatty lesion within the uterus measures 3.8 cm. Impression: Air within the urinary bladder suspicious for cystitis. Fatty lesion within the uterus, correlation with MRI for further evaluation should be considered. Possible mild bronchitis. Hepatomegaly associated with liver steatosis, suspicious for steatohepatitis. Report Electronically Signed By: Varinder Troy 03/01/2025 4:25:03 AM [EST]
[2025-03-01 04:38] LABS: Reflex Lactate? Y
--- NOTE | 2025-03-01 04:48 | PRELIM_ITS ---
Pelvic ultrasound (transabdominal) with Doppler. March 01, 2025 0257 hours Clinical history: Pain, CT reports fibroids. Technique: Real-time, grayscale, transabdominal pelvic ultrasound was performed using Duplex scanning including arterial inflow, venous outflow, color and spectral Doppler. Correlated with the prior CT study dated March 01, 2025. Findings: The uterus is normal in size measuring 7.3 x 4.8 x 7.3 cm. Hyperechoic focus in the uterus measures 4.1 x 2.4 x 3.9 cm, this corresponds to the fatty lesion detected on CT. The endometrium is no clearly visualized. The ovaries were not clearly visualized. There is no adnexal mass. There is no free fluid on the submitted images. Impression: Fatty lesion within the uterus, consider correlation with MRI for further characterization. The endometrium is not clearly visualized, consider correlation with MRI for further evaluation if clinically indicated. The ovaries were not visualized. Report Electronically Signed By: Varinder Troy 03/01/2025 4:47:42 AM [EST]
[2025-03-01 04:49] LABS: Lactic Acid, 3 HR 1.1 mMol/L (0.4-2.0)
[2025-03-01 05:28] LABS: Chloride,Urine Random < 20.0 mMol/L (55.0-125.0); Potassium,Urine Random 11 mMol/L (12-62); Sodium,Urine Random < 15.0 mMol/L (20.0-110.0)
[2025-03-01 05:47] LABS: Anion Gap 14 (7-16); BUN/Creatinine Ratio 7 Ratio (12-20); Blood Urea Nitrogen < 5 mg/dL (9-23); Calcium 9.0 mg/dL (8.3-10.6); Carbon Dioxide 20.6 mMol/L (20.0-31.0); Chloride 107 mMol/L (98-107); Creatinine (Component) 0.7 mg/dL (0.6-1.3); Estimated Creatinine Clearance 99.3 mL/min (>60); Glucose 92 mg/dL (74-106); Osmolality,Calculated 280 (275-295); Potassium 3.1 mMol/L (3.4-5.1); Sodium 142 mMol/L (136-145); eGFR > 60 See Note
[2025-03-01 05:48] LABS: Albumin, Serum 3.2 gm/dL (3.4-4.8); Calcium (Corrected) 9.6 mg/dL (8.5-10.1); Phosphorous 2.7 mg/dL (2.4-5.1)
--- NOTE | 2025-03-01 05:52 | ESHP_ITS ---
Documentation for date of: 03/01/25 [facility] History of Present Illness Chief complaint: Intractable Nausea/Vomiting History of present illness: Patient is a 60-year-old female with past medical history significant for hypertension, hypothyroid, rheumatoid arthritis, insulin dependent diabetes presents to the ED with tractable nausea and vomiting. Patient currently states she feels okay and is less nauseous, but has been having nausea and vomiting for the last 2-1/2 weeks vomiting about 10 times a day with dry heaving as well. Patient states she can keep some water down but only minimal amounts, not able to tolerate food, vomits food shortly after ingestion, nonbloody. Last full meal eaten/tolerated at previous hospitalization in January. Patient unable to take much medications due to vomiting. Zofran sometimes works. Patient had a PCP appointment at [facility] scheduled but was pushed back for GI specialist referral. Patient also endorses loose and watery brown diarrhea, abdominal discomfort, chills, dizziness, felt syncopal in shower today (did not fall), shortness of breath on exertion. Patient denies dysuria, cough. PMH: Hypertension, diabetes, hypothyroidism, rheumatoid arthritis PSH: Cholecystectomy, left cataract surgery, left ankle fracture repair, left knee repair, right shoulder repair x 2 SH: Denies tobacco use. Reports usually drinking 1?2 beers per week in the past. Reports taking 1 CBD gummy daily for back pain. Allergies:?NKDA Medications: amitriptyline, megestrol, promethazine, Levothyroxine, insulin, lovastatin, Enbrel ED Course: -Initial vitals were Temperature 97.6 ?F pulse 102, respiratory rate 16, blood pressure 122/89, 97% oxygen saturation on room air -Labs significant for ABG pH of 7.47, pCO2 22, PaO2 88, HCO3 16; potassium 2.7, anion gap 18, lactic acid 2.3, corrected calcium 7.2, CRP 3.6, beta hydroxybutyrate 5.4, TSH 44.5, free T4.66, free T32.1; urinalysis showed 2+ ketones, urine sodium less than 15, urine potassium 11, urine chloride less than 20; -Imaging included Gallbladder ultrasound, pelvis ultrasound, CT CAP, EKG (no read yet, f/u) Blood cultures x 2 -In the ED, patient was given Sodium chloride IV bolus 1 L Zofran, morphine, potassium chloride oral and liquid (liquid not tolerated), maintenance fluids, diazepam -Patient was admitted for Review of Systems Review of systems otherwise negative except what is mentioned above. Exam Vital Signs Temp Pulse Resp BP Pulse Ox O2 Del Method 98.6 F 85 14 128/78 99 Room Air 03/01/25 05:05 03/01/25 05:05 03/01/25 05:05 03/01/25 05:05 03/01/25 05:05 03/01/25 05:05 Narrative Exam General: No acute distress; lethargic; A&Ox3 Skin: Warm, dry, intact, no obvious rash. HENT: NCAT, EOMI, not icteric. External ears normal. No rhinorrhea. Dry mucous membranes Cardiovascular: Regular rate and rhythm, no murmur, +S1/S2. Respiratory: Lungs CTAB GI: Soft, RUQ tenderness, non-distended. No guarding or rebound tenderness. Extremities: no edema, no cyanosis, no clubbing. Extremity pulses present Neuro: No focal deficits observed. Conversant, moving all extremities. No overt cerebellar signs/incoordination. Psychiatric: Cooperative, appropriate affect. Results: Labs 03/01/25 01:30 03/01/25 04:44 Labs: Short CBC 03/01/25 Range/Units 01:30 WBC 7.8 (3.6-11.0) Thou/mm3 Hgb 14.1 (12.0-16.0) g/dL Hct 42.0 (36.0-46.0) % Plt Count 361 D (140-440) Thou/mm3 [facility] 03/01/25 03/01/25 01:30 04:44 Sodium 139 142 Potassium 2.7 L* 3.1 L Chloride 102 107 Carbon Dioxide 19.4 L 20.6 BUN < 5 L < 5 L Creatinine 0.9 0.7 Glucose 107 H 92 Calcium 10.0 9.0 Cardiac Enzymes 03/01/25 03/01/25 Range/Units 01:30 03:31 Total Creatine Kinase 53 (34-171) U/L Troponin I < 0.002 (0.0-0.045) ng/mL Liver Function 03/01/25 Range/Units 01:30 Total Bilirubin 0.8 (0.3-1.2) mg/dL Direct Bilirubin 0.2 (0.0-0.3) mg/dL AST 30 (0-34) U/L ALT 7 L (10-49) U/L Alkaline Phosphatase 58 (46-116) U/L Albumin 3.8 (3.4-4.8) gm/dL Urine 03/01/25 Range/Units 03:20 Urine Color Lt-Yellow (Lt Yel-Yel) Urine Clarity Clear (Clear/Hazy) Urine pH 6.5 (5.0-7.0) Ur Specific [place] 1.005 (1.001-1.035) Urine Protein Negative (Neg - Trace) Urine Glucose (UA) Negative (Negative) ABG Interpretation ABG results: 03/01/25 02:05 ABG pH 7.47 H ABG pCO2 22 L ABG pO2 88 ABG HCO3 16 L ABG O2 Saturation 98 ABG Base Excess -6 L Quality Measures Quality Measures VTE prophylaxis Medications Home Medications and Allergies Home Medications ?Medication ?Instructions ?Recorded ?Confirmed ?Type hydrochlorothiazide 25 mg tablet 25 mg PO QAM 03/25/24 02/02/25 History Held on 02/06/25. Instructions: resume with pcp lovastatin 40 mg tablet 40 mg PO QDAY 03/25/2402/02 History etanercept 50 mg/mL (1 mL) 50 mg subcut .Qfriday 02/0202/02/25 History subcutaneous pen injector (Enbrel SureClick) gabapentin 100 mg capsule 200 mg PO Q8H 02/02/2502/02 History levothyroxine 137 mcg tablet 137 mcg PO QAMAC 02/02/25 02/02/25 History metformin 500 mg tablet 500 mg PO BIDWM 02/02/25 History Allergies Allergy/AdvReac Type Severity Reaction Status Date / Time kiwi Allergy Verified 03/01/25 04:00 Visit Medications Acetaminophen (Acetaminophen 325 Mg Tablet) 650 mg PO Q6H PRN PRN Reason: Fever >100.4 Stop: 03/31/25 05:44 Heparin Sodium (Porcine) (Heparin Sod Inj 5000 Unit/Ml Vial) 5,000 unit SC BID MEGAN Stop: 03/15/25 08:59 Dextrose/Sodium Chloride (D5-Ns) 1,000 mls @ 100 mls/hr IV .Q10H MEGAN Stop: 03/31/25 05:44 Thiamine HCl 100 mg/ Sodium (Chloride) 101 mls @ 202 mls/hr IV X1 ONE Stop: 03/01/25 06:14 Acetaminophen (Ofirmev Inj) 1,000 mg in 100 mls @ 250 mls/hr IV Q6HR PRN PRN Reason: Fever >100.4 or Pain 1-4 Morphine Sulfate (Morphine Sulf Inj 4 Mg/Ml Vial) 2 mg IVP Q4HR PRN PRN Reason: PAIN SCALE 4-10 Stop: 03/06/25 05:44 Ondansetron HCl (Ondansetron Inj 2 Mg/Ml Inj 2 Ml) 4 mg IVP Q6HR PRN; Protocol PRN Reason: NAUSEA OR VOMITING Stop: 03/31/25 05:44 Ondansetron HCl (Ondansetron Inj 2 Mg/Ml Inj 2 Ml) 4 mg IVP Q6H PRN; Protocol PRN Reason: NAUSEA OR VOMITING Stop: 03/31/25 05:44 Pantoprazole Sodium (Pantoprazole Inj 40 Mg Vial) 40 mg IVP QDAY [facility] Stop: 03/31/25 08:59 Discontinued Medications Diazepam (Diazepam Inj 5 Mg/Ml Vial 2 Ml) 2.5 mg IVP X1 ONE Stop: 03/01/25 03:47 Last Admin: 03/01/25 03:56 Dose: 2.5 mg Sodium Chloride (Ns) 1,000 mls @ 999 mls/hr IV .Q1H1M ONE Stop: 03/01/25 02:19 Last Infusion: 03/01/25 02:37 Dose: Infused Potassium Chloride (Kcl Ivpb) 10 meq in 100 mls @ 100 mls/hr IV X1 ONE Stop: 03/01/25 03:35 Last Infusion: 03/01/25 04:09 Dose: Infused Sodium Chloride (Ns) 1,000 mls @ 100 mls/hr IV .Q10H [facility] Stop: 03/31/25 02:55 Last Admin: 03/01/25 02:59 Dose: 100 mls/hr Potassium Chloride (Kcl Ivpb) 10 meq in 100 mls @ 100 mls/hr IV X1 ONE Stop: 03/01/25 04:39 Last Infusion: 03/01/25 05:21 Dose: Infused Morphine Sulfate (Morphine Sulf Inj 4 Mg/Ml Vial) 4 mg IV X1 ONE Stop: 03/01/25 01:20 Last Admin: 03/01/25 01:36 Dose: 4 mg Ondansetron HCl (Ondansetron Inj 2 Mg/Ml Inj 2 Ml) 4 mg IVP X1 ONE; Protocol Stop: 03/01/25 01:20 Last Admin: 03/01/25 01:36 Dose: 4 mg Potassium Chloride (Potassium Chloride 10% 20 Meq/15 Ml Udc) 40 meq PO X1 ONE Stop: 03/01/25 02:37 Last Admin: 03/01/25 02:53 Dose: Not Given Assessment & Plan Plan 60 y/o F with PMHx significant for insulin dependent diabetes, hypertension, hypothyroidism, rheumatoid arthritis presents with chief complaint of intractable nausea/vomiting x 2.5 weeks, admitted for intractable nausea/vomiting. #Intractable nausea/vomiting Patient reports intractable nausea and vomiting for the past 2.5 weeks, endorses ~ 10 vomiting episodes per day, some food particles present, non-bloody. No signs of hematemesis. Patient is also had poor p.o. intake during this time, only able to tolerate minimal fluids. Unsure etiology, differential includes gastroparesis secondary to diabetes, hypothyroidism, infection. Patient received 1 L bolus normal saline in the ED. Takes amitriptyline, megestrol, promethazine for n/v. - GI consulted, appreciate recommendations - IVF: D5-NS @ 100 mls/hr - Zofran 4 mg IV every 6 hours as needed #Mixed Acid Base Disorder Mixed Metabolic Alkalosis and Metabolic acidosis (vomiting/diarrhea (diuretic use) with starvation ketoacidosis) Patient presented with serum bicarb 19.4, anion gap 18. ABG pH of 7.47, pCO2 22, PaO2 88, HCO3 16. Glucose 107. Suspect starvation ketosis in the setting of poor p.o. intake x 2.5 weeks due to intractable nausea/vomiting. - Treat nausea/vomiting as above - Monitor and replete electrolytes as needed #Hypercalcemia Patient presented with corrected calcium 10.2. Received 1 L bolus normal saline in the ED. - IVF as above - Monitor calcium #Insulin-dependent diabetes Patient with history of diabetes, takes insulin as needed. Does not take any other diabetic medications. A1c 5.3% 03/01/2025, glucose 107 on admission - ISS #HTN home med hctz 25 mg po -hold #Hypothyroidism 137 mcg po home meds levothyroxine q day -will restart with 96 mcg IV q day #Rheumatoid arthritis Patient history as stated. Med rec's pending. - Resume home meds when appropriate Hospital Management: Disposition: Med Tele Diet: NPO GI Prophylaxis: Protonix 40 mg IV qd Bowel Prophylaxis: n/a DVT Prophylaxis: Heparin CODE STATUS: Full Code Attending Provider Attestation/Addendum 60-year-old female patient with past medical history of IDDM II, HTN, hypothyroidism, RA on etanercept, and recurrent ED visits for nausea and vomiting, presents to ED with similar complaints of nausea and vomiting that been going on for more than a week later followed by diarrhea for a few days prior to admission. At ED patient vitals were normal but labs were noted for potassium of 2.7, bicarb of 19.4, anion gap of 17 and serum beta hydroxy butyrate of 5.4 along with TSH of 44 and low free T4 in setting of patient intolerance to take p.o. medication for few days, ABG showed pH 7.47, pCO2 of 22. Patient was previously admitted for workup of intractable nausea/vomiting with GI studies including EGD and motility studies which were negative for any findings. Patient was noted to be on hydrochlorothiazide during last admission was instructed to discontinue use of hydrochlorothiazide. At ED patient does not recall being instructed and seems to have insufficient knowledge of her medications and lacks any home support as she lives alone. Patient's symptoms likely in setting of continuous use of hydrochlorothiazide leading to metabolic alkalosis and hypokalemia causing patient's to have intractable nausea and vomiting furthermore complicating patient's metabolic alkalosis, and leading to decreased p.o. intake causing starvation ketoacidosis leading to anion gap metabolic acidosis. Patient was given detailed explanation need to stop thiazide medication but likely will require contacting patient's primary provider and pharmacy to stop dispensing patient's thiazide along with discarding any HCTZ she has as she was recently prescribed on 05 February. Patient admitted for hypokalemia with EKG changes and management of intractable nausea and vomiting along with hypothyroidism. #Metabolic alkalosis in setting of HCTZ use #Intractable nausea and vomiting #Hypokalemia #Starvation ketosis #Anion gap metabolic acidosis #Hypothyroidism #Dehydration After examination of the patient and review of the clinical data I feel that this patient needs admission to the hospital for further treatment/evaluation. Plan of care discussed with patient and is in agreement. I Anne Hicks MD, attest that I was physically present for barraza portions of evaluation, and examined patient, labs and imagings and plan of care were discussed with IM residents team, and I agree with the findings and plans documented above.
[2025-03-01] MEDS: THIAMINE INJ 100 MG in SODIUM CHLORIDE 0.9% 100 ML 202 MG IV (06:02)
[2025-03-01] MEDS: DEXTROSE 5%-NS 1,000 ML 100 ML IV ×2 (06:06→17:24)
[2025-03-01 06:57] LABS: Magnesium 1.7 mg/dL (1.6-2.6)
[2025-03-01] MEDS: HEPARIN SOD INJ 5000 UNIT/ML VIAL SC ×2 (08:22→20:23)
[2025-03-01] MEDS: MEGESTROL ACET SUSP 400 MG/10 ML UDC 40 MG PO (10:04)
--- NOTE | 2025-03-01 11:10 | PC.SS ---
This is 60-year-old, female who presented to the ED due to suffering from intractable vomiting. Patient appeared alert and oriented to self, place and situation. Patient was pleasant. Patient verified and confirmed his address. Patient resides alone at home. Patient is independent with all ADLs; she has a rollator. Patient assigned her cousin, Leydi Grady, (phone: [phone]) as her medical surrogate decision maker. Patient's PCP is Miah Coles. When medically clear, patient will return home; she will need transportation.
[2025-03-01] MEDS: GABAPENTIN 100 MG CAPSULE 200 MG PO ×2 (13:12→21:59)
[2025-03-01] MEDS: MORPHINE SULF INJ 4 MG/ML VIAL 2 MG IVP ×2 (13:22→20:16)
--- NOTE | 2025-03-01 14:23 | ESPR_ITS ---
<Statement entered by Jose Moore MD - 03/01/25 17:02> Overnight admission. Seen and examined at bedside and patient appears weak. States that she has been having to make frequent trips to the bathroom, approximately times per day and states that she does have small amounts of watery stools each time but has had decreased p.o. intake. No previous antibiotic or PPI use, fever, sweats. On exam, tenderness to palpation right lower quadrant which is consistent with CT A/P findings of a 33 mm fat- containing mass in the uterus. Given findings will consult [facility] and appreciate recommendations. Otherwise, GI and nephrology consulted, appreciate recommendations. EKG reviewed, QTc noted to be 429 but likely underestimating given that T and P waves are close to one another and so TCA discontinued. Ordered ACTH, AFP, beta-HCG, and morning cortisol and started IV thyroid. ----- Note reviewed and agree with care plan as documented. Please refer to the note below for further details. Plan discussed with attending physician Dr. José Miguel Moore MD PGY-2 Internal Medicine Documentation for date of: 03/01/25 Subjective Subjective Interval history: No significant overnight events. Amylase 47, lipase 55, hemoglobin 14.1, potassium 3.1, BHB 5.4, TSH 44, urine positive for 2+ ketones, urine sodium less than 15 which is low.? Urine positive for opioids. ?Imaging: EKG showed a sinus rhythm with an interesting T wave morphology.? QTc 429. ?CT abdomen pelvis showed no pneumonia, 33 mm fat- containing mass in the uterus.? Gallbladder ultrasound showed absent gallbladder no stones.? Pelvic ultrasound negative. Had EGD 02/04/2025 showed esophagitis. Vitals significant for stage I hypertension are otherwise stable. Ordered ACTH, AFP, beta-hCG, cortisol. Started IV thyroid. Exam Vital Signs Temp Pulse Resp BP Pulse Ox O2 Del Method 97.7 F 78 18 137/81 H 96 Room Air 03/01/25 12:00 03/01/25 12:00 03/01/25 12:00 03/01/25 12:00 03/01/25 12:00 03/01/25 12:00 Narrative Exam General: Lethargic. Pale. Awake and in no acute distress. Conversational and non-toxic appearing. Neurologic: GCS 15. Alert and oriented x3, no gross neurological deficit, and patient able to move all 4 extremities. HEENT: Normocephalic, atraumatic, mucous membranes moist. Pupils reactive to light. Heart: Regular rate and rhythm, normal S1 and S2, no murmurs. Lungs: Clear to auscultation bilaterally with no wheezing or crackles. Abdomen: Pain on palpation of the right lower quadrant. Extremities: No edema. 2+ radial and dorsalis pedis pulses bilaterally. Skin: Warm. Dry. No rash or ecchymoses. Objective Labs 03/02/25 05:18 03/02/25 05:18 Labs: Laboratory Results - last 24 hr 03/01/25 03/01/25 03/01/25 01:30 02:05 03:20 WBC 7.8 RBC 5.10 Hgb 14.1 Hct 42.0 MCV 82 MCH 27.6 MCHC 33.6 RDW Std Deviation 51.7 H Plt Count 361 D Neut % (Auto) 59 Lymph % (Auto) 22 [place] % (Auto) 15 H Eos % (Auto) 2 Baso % (Auto) 1 Neut # (Auto) 4.6 Lymph # (Auto) 1.7 [place] # (Auto) 1.2 H Eos # (Auto) 0.1 Baso # (Auto) 0.1 Immature Gran # (Auto) 0.02 H Absolute Nucleated RBC 0.00 Immature Gran % 0 Nucleated RBC % 0 ESR 60 H Puncture Site Right Radial ABG pH 7.47 H ABG pCO2 22 L ABG pO2 88 ABG HCO3 16 L ABG O2 Saturation 98 ABG Base Excess -6 L FiO2 21 Sodium 139 Potassium 2.7 L* Chloride 102 Carbon Dioxide 19.4 L Anion Gap 18 H BUN < 5 L Creatinine 0.9 Estim Creat Clear Calc 77.2 eGFR > 60 BUN/Creatinine Ratio 6 L Glucose [address] Glu mg/dL 105 Hemoglobin A1c 5.3 Calculated Osmolality 274 L Lactic Acid 2.3 H Calcium 10.0 Corrected Calcium 10.2 H Phosphorus Magnesium 1.7 Total Bilirubin 0.8 Direct Bilirubin 0.2 AST 30 ALT 7 L Alkaline Phosphatase 58 Ammonia < 10 L Total Creatine Kinase 53 Troponin I C-Reactive Prot, Quant 3.6 H B-Natriuretic Peptide < 20 Total Protein 7.0 Albumin 3.8 Globulin 3.2 Albumin/Globulin Ratio 1.2 Amylase 47 Beta-Hydroxybutyrate/Acetoacetate 5.4 H Procalcitonin 0.11 TSH 44.50 H D Free T4 0.66 L Free T3 pg/dL 2.1 L Ur Collection Type Clean Catch Urine Color Lt-Yellow Urine Clarity Clear Urine pH 6.5 Ur Specific [place] 1.005 Urine Protein Negative Urine Glucose (UA) Negative Urine Ketones 2+ A Urine Blood Negative Urine Nitrite Negative Urine Bilirubin Negative Urine Urobilinogen (Auto) Negative Ur Leukocyte Esterase Negative Urine RBC 1 Urine WBC 3 Ur Squamous Epith Cells 7 H Urine Bacteria Rare Ur Culture Indicated? Not Indicated Ur Random Sodium < 15.0 L Ur Random Potassium 11 L Ur Random Chloride < 20.0 L Urine Opiates Screen Positive A Urine Fentanyl Screen Negative Ur Barbiturates Screen Negative U Amphetamin/Meth Scrn Negative U Benzodiazepines Scrn Negative U Cocaine Metab Screen Negative U Marijuana (THC) Screen Negative Ethyl Alcohol < 3.0 03/01/25 03/01/25 03:31 04:44 WBC RBC Hgb Hct MCV MCH MCHC RDW Std Deviation Plt Count Neut % (Auto) Lymph % (Auto) [place] % (Auto) Eos % (Auto) Baso % (Auto) Neut # (Auto) Lymph # (Auto) [place] # (Auto) Eos # (Auto) Baso # (Auto) Immature Gran # (Auto) Absolute Nucleated RBC Immature Gran % Nucleated RBC % ESR Puncture Site ABG pH ABG pCO2 ABG pO2 ABG HCO3 ABG O2 Saturation ABG Base Excess FiO2 Sodium 142 Potassium 3.1 L Chloride 107 Carbon Dioxide 20.6 Anion Gap 14 BUN < 5 L Creatinine 0.7 Estim Creat Clear Calc 99.3 eGFR > 60 BUN/Creatinine Ratio 7 L Glucose [address] Glu mg/dL Hemoglobin A1c Calculated Osmolality 280 Lactic Acid 1.1 Calcium 9.0 Corrected Calcium 9.6 Phosphorus 2.7 Magnesium 1.7 Total Bilirubin Direct Bilirubin AST ALT Alkaline Phosphatase Ammonia Total Creatine Kinase Troponin I < 0.002 C-Reactive Prot, Quant B-Natriuretic Peptide < 20 Total Protein Albumin 3.2 L D Globulin Albumin/Globulin Ratio Amylase Beta-Hydroxybutyrate/Acetoacetate Procalcitonin TSH Free T4 Free T3 pg/dL Ur Collection Type Urine Color Urine Clarity Urine pH Ur Specific [place] Urine Protein Urine Glucose (UA) Urine Ketones Urine Blood Urine Nitrite Urine Bilirubin Urine Urobilinogen (Auto) Ur Leukocyte Esterase Urine RBC Urine WBC Ur Squamous Epith Cells Urine Bacteria Ur Culture Indicated? Ur Random Sodium Ur Random Potassium Ur Random Chloride Urine Opiates Screen Urine Fentanyl Screen Ur Barbiturates Screen U Amphetamin/Meth Scrn U Benzodiazepines Scrn U Cocaine Metab Screen U Marijuana (THC) Screen Ethyl Alcohol ABG Interpretation ABG results: 03/01/25 02:05 ABG pH 7.47 H ABG pCO2 22 L ABG pO2 88 ABG HCO3 16 L ABG O2 Saturation 98 ABG Base Excess -6 L Quality Measures Quality Measures VTE prophylaxis Assessment & Plan Assessment Current Active Medications: Generic Name Dose Route Start Last Admin Trade Name Freq PRN Reason Stop Dose Admin Atorvastatin Calcium 10 mg 03/01/25 21:00 Atorvastatin Calcium 20 Mg Tablet PO 03/31/25 20:59 HS MEGAN Dextrose 25 ml 03/01/25 06:29 Dextrose 50%-Water Inj 50 Ml Syringe IV 03/31/25 06:28 Q15MIN PRN BG 50-70 responsive npo pt Dextrose 50 ml 03/01/25 06:29 Dextrose 50%-Water Inj 50 Ml Syringe IV 03/31/25 06:28 Q15MIN PRN BG <50 OR BG <70 & pt unresponsive Gabapentin 200 mg 03/01/25 14:00 03/01/25 13:12 Gabapentin 100 Mg Capsule PO 03/31/25 13:59 200 mg TID MEGAN Administration Glucagon 1 mg 03/01/25 06:29 Glucagon Inj 1 Mg Vial IM Q15MIN PRN BG <70, and no IV access Heparin Sodium (Porcine) 5,000 unit 03/01/25 09:00 03/01/25 08:22 Heparin Sod Inj 5000 Unit/Ml Vial SC 03/15/25 08:59 5,000 unit BID MEGAN Administration Dextrose/Sodium Chloride 1,000 mls @ 100 mls/hr 03/01/25 05:45 03/01/25 06:06 D5-Ns IV 03/31/25 05:44 100 mls/hr .Q10H MEGAN Administration Acetaminophen 1,000 mg in 100 mls @ 250 mls/hr 03/01/25 05:59 Ofirmev Inj IV 03/02/25 05:58 Q6HR PRN fever >100.4 or Pain 1-4 Insulin Human Lispro 0 unit 03/01/25 06:30 03/01/25 11:52 Insulin Lispro (Admelog) 1 Unit/0.01 Ml Unit SC 03/31/25 06:29 Not Given Q6H MEGAN Protocol Levothyroxine Sodium 96 mcg 03/01/25 09:00 03/01/25 10:03 Levothyroxine Inj 100 Mcg Vial IV 03/31/25 08:59 96 mcg QDAY MEGAN Administration Megestrol Acetate 40 mg 03/01/25 10:00 03/01/25 10:04 Megestrol Acet Susp 400 Mg/10 Ml Udc PO 03/31/25 09:59 40 mg QDAY MEGAN Administration Morphine Sulfate 2 mg 03/01/25 05:45 03/01/25 13:22 Morphine Sulf Inj 4 Mg/Ml Vial IVP 03/06/25 05:44 2 mg Q4HR PRN Administration PAIN SCALE 4-10 Ondansetron HCl 4 mg 03/01/25 05:45 Ondansetron Inj 2 Mg/Ml Inj 2 Ml IVP 03/31/25 05:44 Q6HR PRN NAUSEA OR VOMITING Protocol Pantoprazole Sodium 40 mg 03/01/25 09:00 03/01/25 08:22 Pantoprazole Inj 40 Mg Vial IVP 03/31/25 08:59 40 mg QDAY MEGAN Administration Promethazine HCl 12.5 mg 03/01/25 06:31 Promethazine Hcl 25 Mg Tablet PO 03/31/25 06:30 Q6H PRN nausea and vomiting Plan 60 y/o F with PMHx significant for insulin dependent diabetes, hypertension, hypothyroidism, rheumatoid arthritis presents with chief complaint of intractable nausea/vomiting x 2.5 weeks, admitted for intractable nausea/vomiting. #Intractable nausea/vomiting Patient reports intractable nausea and vomiting for the past 2.5 weeks, endorses ~ 10 vomiting episodes per day, some food particles present, non-bloody. No signs of hematemesis. Patient is also had poor p.o. intake during this time, only able to tolerate minimal fluids. Unsure etiology, differential includes gastroparesis secondary to diabetes, hypothyroidism, infection. Patient received 1 L bolus normal saline in the ED. Takes amitriptyline, megestrol, promethazine for n/v. EKG showed T waves roughly fdc between QRS complexes, concern for long QT syndrome in the presence of amitriptyline and Zofran use. Patient so far has no clear explanation as to why she has intractable nausea and vomiting. Consider the presence of any evolving pelvic mass on CT scan. Plan: - GI consulted, appreciate recommendations - IVF: D5-NS @ 100 mls/hr - Zofran 4 mg IV every 6 hours as needed - Will not restart amitriptyline - Ordered: ACTH, AFP, beta-hCG. - [employer] consult. #Mixed Acid Base Disorder Mixed Metabolic Alkalosis and Metabolic acidosis (vomiting/diarrhea (diuretic use) with starvation ketoacidosis) Patient presented with serum bicarb 19.4, anion gap 18. ABG pH of 7.47, pCO2 22, PaO2 88, HCO3 16. Glucose 107. Suspect starvation ketosis in the setting of poor p.o. intake x 2.5 weeks due to intractable nausea/vomiting. Plan: - Treat nausea/vomiting as above - Monitor and replete electrolytes as needed #Hypercalcemia Patient presented with corrected calcium 10.2. Received 1 L bolus normal saline in the ED. Plan: - IVF as above - Monitor calcium #Insulin-dependent diabetes Patient with history of diabetes, takes insulin as needed. Does not take any other diabetic medications. A1c 5.3% 03/01/2025, glucose 107 on admission Fingersticks have been between 100-120 Plan: -Continue insulin sliding scale #HTN Home med hctz 25 mg po Plan: - Hold in the presence of hypovolemia #Hypothyroidism 137 mcg po home meds levothyroxine q day Plan: - Restarted with 96 mcg IV q day #Rheumatoid arthritis Patient history as stated. Med rec's pending. Plan: - Resume home meds when appropriate Hospital Management: Disposition: Med Tele, pending ACTH, AFP, beta-hCG. Intractable nausea and vomiting currently has no clear explanation. Nausea controlled currently. Diet: Clear liquid GI Prophylaxis: Protonix 40 mg IV qd Bowel Prophylaxis: n/a DVT Prophylaxis: Heparin CODE STATUS: Full Code Patient was seen and discussed with my attending physician Dr. José Miguel WHEATLEY and my senior resident Dr. Teresa WHEATLEY PGY-2. Amos Mariano DO PGY-1. Attending Provider Attestation/Addendum I Vito Valdez MD reviewed the note and agree with the resident's assessment & plan with modifications/additions/exceptions as below. I have personally reviewed labs, imaging, home meds/prior records, examined the patient, formulated and discussed management plan with the IM team. 60-year-old female with history of HTN, DM, hypothyroidism, RA presented with 2 weeks of intractable vomiting and right lower quadrant abdominal pain admitted for intractable vomiting and severe ketoacidosis. Further workup did reveal significantly elevated TSH and low free T4 levels consistent with untreated hypothyroidism, will start on IV levothyroxine as patient unable to tolerate p.o. due to recurrent vomiting. Abdominal imaging did not reveal heterogenous uterine cyst/mass without any menorrhagia, will consult gynecology for evaluation of potential biopsy/hysterectomy. Will obtain further labs including ACTH, if a.m. cortisol level, beta-hCG, AFP, CEA, CA125 for potential evaluation of uterine lesion. Will consult endocrinology regarding hypothyroid myxedema picture.
[2025-03-01] MEDS: INSULIN LISPRO (AdmeLOG) 1 UNIT/0.01 ML UNIT SC (18:48)
[2025-03-01] MEDS: ATORVASTATIN CALCIUM 20 MG TABLET 10 MG PO (20:20)
[2025-03-02] VITALS (9 sets, daily range): BP systolic 106–120; BP diastolic 61–84; PULSE 71–81; RESP 16–19; TEMP 36.1–36.5; O2SAT 94–99
[2025-03-02] MEDS: DEXTROSE 5%-NS 1,000 ML 100 ML IV ×2 (03:16→23:49)
[2025-03-02] MEDS: GABAPENTIN 100 MG CAPSULE 200 MG PO ×3 (05:28→22:01)
[2025-03-02 05:34] LABS: Basophils # (Auto) 0.1 Thou/mm3 (0.0-0.2); Basophils % (Auto) 2 % (0-2.5); Eosinophils # (Auto) 0.4 Thou/mm3 (0.0-0.5); Eosinophils % (Auto) 10 % (0-10); Hematocrit 36.9 % (36.0-46.0); Hemoglobin 12.4 g/dL (12.0-16.0); Immature Granulocytes Auto 0.01 Thou/mm3 (0.00-0.00); Lymphocytes # (Auto) 1.2 Thou/mm3 (1.0-4.8); Lymphocytes % (Auto) 32 % (10-50); Mean Corpuscular HGB Conc 33.6 g/dl (31.0-37.0); Mean Corpuscular Hemoglobin 28.5 pg (25.0-35.0); Mean Corpuscular Volume 85 fL (80-100); Monocytes # (Auto) 0.7 Thou/mm3 (0.0-0.8); Monocytes % (Auto) 17 % (0-12); Neutrophils # (Auto) 1.5 Thou/mm3 (1.8-7.7); Neutrophils % (Auto) 39 % (37-80); Nucleated Red Blood Cell # 0.00 Thou/mm3 (0.00-0.00); Nucleated Red Blood Cell % 0 /100 WBC (0); Platelet Count 281 Thou/mm3 (140-440); RDW Standard Deviation 56.9 fL (36.4-46.3); Red Blood Count 4.35 Miln/mm3 (4.00-5.20); White Blood Count 3.8 Thou/mm3 (3.6-11.0)
[2025-03-02 05:58] LABS: Anion Gap 10 (7-16); BUN/Creatinine Ratio 8 Ratio (12-20); Beta HCG,Quantitative 5 mIU/mL (<5.0); Blood Urea Nitrogen < 5 mg/dL (9-23); Calcium 9.1 mg/dL (8.3-10.6); Carbon Dioxide 20.9 mMol/L (20.0-31.0); Chloride 110 mMol/L (98-107); Creatinine (Component) 0.6 mg/dL (0.6-1.3); Estimated Creatinine Clearance 108.3 mL/min (>60); Glucose 116 mg/dL (74-106); Magnesium 1.4 mg/dL (1.6-2.6); Osmolality,Calculated 279 (275-295); Phosphorous 2.0 mg/dL (2.4-5.1); Potassium 3.3 mMol/L (3.4-5.1); Sodium 141 mMol/L (136-145); eGFR > 60 See Note
[2025-03-02] MEDS: Magnesium Sulfate 2 GM Ivpb 2 GM/50 ML BAG IV ×2 (08:50→18:30)
[2025-03-02] MEDS: MEGESTROL ACET SUSP 400 MG/10 ML UDC 40 MG PO (08:50)
[2025-03-02] MEDS: HEPARIN SOD INJ 5000 UNIT/ML VIAL SC ×2 (08:51→20:14)
--- NOTE | 2025-03-02 09:34 | ESPR_ITS ---
<Statement entered by Jose Moore MD - 03/02/25 15:40> Note reviewed and agree with care plan as documented. Please refer to the note below for further details. Plan discussed with attending physician Jose Moore MD PGY-2 Internal Medicine Documentation for date of: 03/02/25 Subjective Subjective Interval history: Patient seen and examined at bedside. No overnight events. Patient's nausea is better controlled today and she is tolerating applesauce. Potassium 3.3, Phos 2.0, magnesium 1.4.? Repleted all. ?CRP 3.6.? Neutrophils 1.5 down from 4.6.?aFP pending, ACTH pending, total cortisol pending.?Beta-hCG negative.?No new imaging. Pending OB consult with Dr. Rubin, GI consult with Dr. Reardon, and nephrology consult with Dr. Hadley. Started on metoprolol succinate 25 daily. Exam Vital Signs Temp Pulse Resp BP Pulse Ox O2 Del Method 97.4 F 78 19 106/67 97 Room Air 03/02/25 08:00 03/02/25 08:00 03/02/25 08:00 03/02/25 08:00 03/02/25 08:00 03/02/25 08:00 Narrative Exam General: Mild lethargy. Awake and in no acute distress. Conversational and non- toxic appearing. Neurologic: GCS 15. Alert and oriented x3, no gross neurological deficit, and patient able to move all 4 extremities. HEENT: Normocephalic, atraumatic, mucous membranes moist. Pupils reactive to light. Heart: Regular rate and rhythm, normal S1 and S2, no murmurs. Lungs: Clear to auscultation bilaterally with no wheezing or crackles. Abdomen: Pain on palpation of the right lower quadrant. Extremities: No edema. 2+ radial and dorsalis pedis pulses bilaterally. Skin: Warm. Dry. No rash or ecchymoses. Objective Labs 03/02/25 05:18 03/02/25 05:18 Labs: Laboratory Results - last 24 hr 03/02/25 05:18 WBC 3.8 D RBC 4.35 Hgb 12.4 Hct 36.9 MCV 85 MCH 28.5 MCHC 33.6 RDW Std Deviation 56.9 H Plt Count 281 D Neut % (Auto) 39 Lymph % (Auto) 32 [place] % (Auto) 17 H Eos % (Auto) 10 Baso % (Auto) 2 Neut # (Auto) 1.5 L Lymph # (Auto) 1.2 [place] # (Auto) 0.7 Eos # (Auto) 0.4 Baso # (Auto) 0.1 Immature Gran # (Auto) 0.01 H Absolute Nucleated RBC 0.00 Immature Gran % 0 Nucleated RBC % 0 Sodium 141 Potassium 3.3 L Chloride 110 H Carbon Dioxide 20.9 Anion Gap 10 BUN < 5 L Creatinine 0.6 Estim Creat Clear Calc 108.3 eGFR > 60 BUN/Creatinine Ratio 8 L Glucose 116 H Calculated Osmolality 279 Calcium 9.1 Phosphorus 2.0 L Magnesium 1.4 L Beta HCG, Quant 5 ABG Interpretation ABG results: 03/01/25 02:05 ABG pH 7.47 H ABG pCO2 22 L ABG pO2 88 ABG HCO3 16 L ABG O2 Saturation 98 ABG Base Excess -6 L Quality Measures Quality Measures VTE prophylaxis Assessment & Plan Assessment Current Active Medications: Generic Name Dose Route Start Last Admin Trade Name Freq PRN Reason Stop Dose Admin Hydrocodone Bitart/Acetaminophen 1 tab 03/02/25 09:11 Hydrocodone/Apap 5/325 Tablet PO 03/07/25 09:10 Q6HR PRN PAIN SCALE 4-10(Mod-Sev Atorvastatin Calcium 10 mg 03/01/25 21:00 03/01/25 20:20 Atorvastatin Calcium 20 Mg Tablet PO 03/31/25 20:59 10 mg HS MEGAN Administration Dextrose 25 ml 03/01/25 06:29 Dextrose 50%-Water Inj 50 Ml Syringe IV 03/31/25 06:28 Q15MIN PRN BG 50-70 responsive npo pt Dextrose 50 ml 03/01/25 06:29 Dextrose 50%-Water Inj 50 Ml Syringe IV 03/31/25 06:28 Q15MIN PRN BG <50 OR BG <70 & pt unresponsive Gabapentin 200 mg 03/01/25 14:00 03/02/25 05:28 Gabapentin 100 Mg Capsule PO 03/31/25 13:59 200 mg TID MEGAN Administration Glucagon 1 mg 03/01/25 06:29 Glucagon Inj 1 Mg Vial IM Q15MIN PRN BG <70, and no IV access Heparin Sodium (Porcine) 5,000 unit 03/01/25 09:00 03/02/25 08:51 Heparin Sod Inj 5000 Unit/Ml Vial SC 03/15/25 08:59 5,000 unit BID MEGAN Administration Dextrose/Sodium Chloride 1,000 mls @ 100 mls/hr 03/01/25 05:45 03/02/25 03:16 D5-Ns IV 03/31/25 05:44 100 mls/hr .Q10H MEGAN Administration Potassium Phosphate 22.5 mmol/ 507.5 mls @ 82.778 mls/hr 03/02/25 07:04 Sodium Chloride IV 03/02/25 13:11 X1 ONE Insulin Human Lispro 0 unit 03/01/25 06:30 03/02/25 06:00 Insulin Lispro (Admelog) 1 Unit/0.01 Ml Unit SC 03/31/25 06:29 Not Given Q6H MEGAN Protocol Levothyroxine Sodium 96 mcg 03/01/25 09:00 03/02/25 08:51 Levothyroxine Inj 100 Mcg Vial IV 03/31/25 08:59 96 mcg QDAY MEGAN Administration Megestrol Acetate 40 mg 03/01/25 10:00 03/02/25 08:50 Megestrol Acet Susp 400 Mg/10 Ml Udc PO 03/31/25 09:59 40 mg QDAY MEGAN Administration Ondansetron HCl 4 mg 03/01/25 05:45 Ondansetron Inj 2 Mg/Ml Inj 2 Ml IVP 03/31/25 05:44 Q6HR PRN NAUSEA OR VOMITING Protocol Pantoprazole Sodium 40 mg 03/01/25 09:00 03/02/25 08:50 Pantoprazole Inj 40 Mg Vial IVP 03/31/25 08:59 40 mg QDAY MEGAN Administration Promethazine HCl 12.5 mg 03/01/25 06:31 Promethazine Hcl 25 Mg Tablet PO 03/31/25 06:30 Q6H PRN nausea and vomiting Plan Summary: Arlene Palumbo is a 60 y/o F with PMHx significant for insulin dependent diabetes, hypertension, hypothyroidism, rheumatoid arthritis presents with chief complaint of intractable nausea/vomiting x 2.5 weeks. She was admitted for intractable nausea/vomiting. #Intractable nausea/vomiting #Uterine mass Patient reports intractable nausea and vomiting for the past 2.5 weeks, endorses ~ 10 vomiting episodes per day, some food particles present, non-bloody. No signs of hematemesis. Patient is also had poor p.o. intake during this time, only able to tolerate minimal fluids. Unsure etiology, differential includes gastroparesis secondary to diabetes, hypothyroidism, infection. Patient received 1 L bolus normal saline in the ED. Takes amitriptyline, megestrol, promethazine for n/v. EKG showed T waves roughly long term between QRS complexes, concern for long QT syndrome in the presence of amitriptyline and Zofran use. Considering that the patient has no strong explanation for her previous ongoing nausea and vomiting and that she has a 4.1 x 3.9 x 2.4 cm uterine mass on pelvic ultrasound, ACTH AFP and beta-hCG were ordered. Beta-hCG negative. Patient has begun to tolerate clear liquid diet. Plan: - Metoprolol succinate 25 mg p.o. daily started 03/02/2025 - GI consulted. - [employer] consult. - Nephrology consult. - Consider endocrine consult. - Pending ACTH, AFP. - IVF: D5-NS @ 100 mls/hr - Zofran 4 mg IV every 6 hours as needed - Will not restart amitriptyline - Ordered: ACTH, AFP, beta-hCG. #Mixed Acid Base Disorder #Hypercalcemia (Resolved) #Hypokalemia #Hypomagnesemia #Hypophosphatemia Mixed Metabolic Alkalosis and Metabolic acidosis (vomiting/diarrhea (diuretic use) with starvation ketoacidosis) Patient presented with serum bicarb 19.4, anion gap 18. ABG pH of 7.47, pCO2 22, PaO2 88, HCO3 16. Glucose 107. Suspect starvation ketosis in the setting of poor p.o. intake x 2.5 weeks due to intractable nausea/vomiting. Patient presented with corrected calcium 10.2. Received 1 L bolus normal saline in the ED. Patient has had electrolyte derangements in the presence of vomiting and diarrhea Plan: - IV fluids as above - Treat nausea/vomiting as above - Monitor and replete electrolytes as needed #Insulin-dependent diabetes Patient with history of diabetes, takes insulin as needed. Does not take any other diabetic medications. A1c 5.3% 03/01/2025, glucose 107 on admission Fingersticks have been between 100-120 Plan: -Continue insulin sliding scale #HTN Home med hctz 25 mg po Plan: - Hold in the presence of hypovolemia #Hyperlipidemia Patient takes lovastatin 40 mg daily Plan: - Hold in the presence of nausea vomiting #Hypothyroidism 137 mcg po home meds levothyroxine q day Plan: - Continue with 96 mcg IV q day #Rheumatoid arthritis Patient history as stated. Med rec's pending. Plan: - Resume home meds when appropriate Hospital Management: Disposition: Med Tele, pending ACTH, AFP. Beta-hCG negative. Intractable nausea and vomiting currently has no clear explanation. Pending consult from GI, OB, and nephrology. Nausea controlled and improving. Diet: Clear liquid GI Prophylaxis: Protonix 40 mg IV qd Bowel Prophylaxis: n/a DVT Prophylaxis: Heparin CODE STATUS: Full Code Patient was seen and discussed with my attending physician Dr. José Miguel WHEATLEY and my senior resident Dr. Teresa WHEATLEY PGY-2. Amos Mariano DO PGY-1. Attending Provider Attestation/Addendum I Vito Valdez MD reviewed the note and agree with the resident's assessment & plan with modifications/additions/exceptions as below. I have personally reviewed labs, imaging, home meds/prior records, examined the patient, formulated and discussed management plan with the IM team. 60-year-old female with history of HTN, DM, hypothyroidism, RA presented with 2 weeks of intractable vomiting and right lower quadrant abdominal pain admitted for intractable vomiting and severe ketoacidosis. Further workup did reveal significantly elevated TSH and low free T4 levels consistent with untreated hypothyroidism, will start on IV levothyroxine, no more vomiting nausea has been improved however continues to remain fatigued all slowed speech. Abdominal imaging did reveal heterogenous uterine cyst/mass without any menorrhagia, will consult gynecology for evaluation of potential biopsy/hysterectomy. Pending labs including ACTH, 8 a.m. cortisol level, beta-hCG, AFP, CEA, CA125 for potential evaluation of uterine lesion. Will consult endocrinology regarding hypothyroid myxedema picture. Aggressive electrolyte replacement.
[2025-03-02] MEDS: POTASSIUM PHOS 22.5 MMOL in SODIUM CHLORIDE 0.9% 500 ML 500 ML 82.778 MMOL IV (11:25)
[2025-03-02] MEDS: HYDROcodone/APAP 5/325 TABLET 1 TAB PO ×2 (11:28→20:13)
[2025-03-02] MEDS: METOPROLOL SUCCINATE XL 25 MG TABCR PO (12:30)
--- NOTE | 2025-03-02 14:40 | PC.SS ---
Rounding: Pending consults from OB, GI and Nephro
[2025-03-02] MEDS: ATORVASTATIN CALCIUM 20 MG TABLET 10 MG PO (20:08)
[2025-03-02 20:32] LABS: AFP Non-Pregnant 3.10 ng/mL (<8.10)
--- NOTE | 2025-03-02 21:39 | PD.GYNCONS ---
ERP SPECIALIST HPI Data of Consult Requesting Physician: Benson Rubin MD Primary Care Provider: Miah Coles MD Consult Narrative History of present illness: Arlene Palumbo is a 60-year-old female with a medical history of hypertension, diabetes, hypothyroidism, and hyperlipidemia, who was admitted on March 01, 2025, through the emergency room for persistent abdominal pain, nausea, and vomiting. Upon admission, the patient reported feeling less nauseous and was able to keep some fluids down. However, she continues to struggle with vomiting, which limits her ability to take medications. Zofran occasionally provides relief, but its effectiveness is inconsistent. The patient's symptoms have significantly impacted her daily functioning, necessitating inpatient care. She is currently receiving treatment for hyperemesis, including D5-containing IV fluids and Zofran. Her home medication, amitriptyline, has been temporarily discontinued during this admission. The patient's usual treatment for hypertension, hydrochlorothiazide 25 mg daily, has been continued, and she was restarted on levothyroxine 137 mcg for her hypothyroidism. A uterine mass was incidentally found during imaging studies, but it is noted to have decreased in size compared to previous imaging from April 2024. This mass is not believed to be the cause of her current symptoms, given its reduction in size and the nature of her presenting complaints. Diagnostic Test Results and Labs: - ABG (03-01-2025): pH 7.4, CO2 22, PO2 88, HCO3 16 - Potassium (03-01-2025): 2.7 - Anion gap (03-01-2025): 18 - Lactic acid (03-01-2025): 2.3, elevated - TSH (03-01-2025): 44.5 mIU/L - Free T4 (03-01-2025): 0.66 - Urinalysis (03-01-2025): 2+ ketones - AFP (03-01-2025): Within normal limits - Beta-HCG (03-01-2025): 5 mIU/mL - Pelvic ultrasound (03-01-2025): Uterus measuring 7.3 cm, uterine hyperechoic mass 4.1 x 3.9 x 2.4 cm, ovaries obscured by gas - Pelvic ultrasound (05-06-2024): Hyperechoic mass with avascular region in the uterus 6 x 6.2 x 6.4 cm - CT scan chest, abdomen, and pelvis (03-01-2025): Mass in the fundus of the uterus containing fat, measuring 33 mm cc:: cc: Benson Rubin MD Meds Home Medications and Allergies Home Medications ?Medication ?Instructions ?Recorded ?Confirmed ?Type hydrochlorothiazide 25 mg tablet 25 mg PO QAM 03/25/24 03/01/25 History Held on 02/06/25. Instructions: resume with pcp lovastatin 40 mg tablet 40 mg PO QDAY 03/25/24 03/01/25 History etanercept 50 mg/mL (1 mL) 50 mg subcut .Qfriday 02/02/25 03/01/25 History subcutaneous pen injector (Enbrel SureClick) gabapentin 100 mg capsule 200 mg PO Q8H 02/02/25 03/01/25 History levothyroxine 137 mcg tablet 137 mcg PO QAMAC 02/02/25 03/01/25 History metformin 500 mg tablet 500 mg PO BIDWM 02/02/25 03/01/25 History Allergies Allergy/AdvReac Type Severity Reaction Status Date / Time kiwi Allergy Verified 03/01/25 04:00 Exam - ERP SPECIALIST Vital Signs Temp Pulse Resp BP Pulse Ox O2 Del Method 97.0 F 77 17 106/61 99 Room Air 03/02/25 20:00 03/02/25 20:00 03/02/25 20:00 03/02/25 20:00 03/02/25 20:00 03/02/25 20:00 Constitutional Constitutional: no acute distress Routine HEENT Exam Head: Present normocephalic and atraumatic Eye: Present EOMI and PERRL ENT: Present mucous membranes moist Routine Neck Exam Neck: Present supple and trachea midline Routine Psychiatric Exam Psychiatric: Present normal affect and normal thought process ERP SPECIALIST - Results Labs 03/02/25 05:18 03/02/25 05:18 Labs: Short CBC 03/02/25 Range/Units 05:18 WBC 3.8 D (3.6-11.0) Thou/mm3 Hgb 12.4 (12.0-16.0) g/dL Hct 36.9 (36.0-46.0) % Plt Count 281 D (140-440) Thou/mm3 BMP 03/02/25 05:18 Sodium 141 Potassium 3.3 L Chloride 110 H Carbon Dioxide 20.9 BUN < 5 L Creatinine 0.6 Glucose 116 H Calcium 9.1 ABG Interpretation ABG results: 03/01/25 02:05 ABG pH 7.47 H ABG pCO2 22 L ABG pO2 88 ABG HCO3 16 L ABG O2 Saturation 98 ABG Base Excess -6 L Assessment and Plan Assessment and plan (1) Pelvic mass in female: Status: Acute Assessment and plan: Assessment: Pelvic ultrasound on 03/01/2025 revealed a uterine hyperechoic mass measuring 4.1 x 3.[address] scan on the same day showed a fat-containing mass in the uterine fundus measuring 33 mm. Comparison with previous imaging (CT from last year and ultrasound from 05/06/2024) indicates an interval reduction in size. The mass is most likely a fibroid and considered an incidental finding, unlikely to contribute to the patient's current symptoms given its reduced size and location. Plan: - Outpatient follow-up with ALIGNING INSPECTOR service - Consider future treatment options based on patient's general health status: Medical approach: GnRH agonists (e.g., Lupron), Surgical options: myomectomy or hysterectomy - Recommend minimally invasive approach (laparoscopic or robotic-assisted) - Recommend to be performed at a tertiary care hospital with gynecologic oncology/ advanced minimally invasive surgeon and/or surgical intensive care available - Recommend additional tumor markers (GILBERTO panel, CEA, CA 125, CA 19-9) - Suggest MRI of pelvis with and without contrast to further delineate origin of the mass if patient is able to tolerate contrast.
[2025-03-03] VITALS (9 sets, daily range): BP systolic 94–140; BP diastolic 59–85; PULSE 62–98; RESP 17–18; TEMP 36.1–36.6; O2SAT 95–99
[2025-03-03] MEDS: GABAPENTIN 100 MG CAPSULE 200 MG PO ×3 (05:57→21:06)
[2025-03-03 06:04] LABS: Basophils # (Auto) 0.1 Thou/mm3 (0.0-0.2); Basophils % (Auto) 1 % (0-2.5); Eosinophils # (Auto) 0.4 Thou/mm3 (0.0-0.5); Eosinophils % (Auto) 7 % (0-10); Hematocrit 40.6 % (36.0-46.0); Hemoglobin 13.4 g/dL (12.0-16.0); Immature Granulocytes Auto 0.01 Thou/mm3 (0.00-0.00); Lymphocytes # (Auto) 2.9 Thou/mm3 (1.0-4.8); Lymphocytes % (Auto) 55 % (10-50); Mean Corpuscular HGB Conc 33.0 g/dl (31.0-37.0); Mean Corpuscular Hemoglobin 27.9 pg (25.0-35.0); Mean Corpuscular Volume 84 fL (80-100); Monocytes # (Auto) 0.7 Thou/mm3 (0.0-0.8); Monocytes % (Auto) 13 % (0-12); Neutrophils # (Auto) 1.2 Thou/mm3 (1.8-7.7); Neutrophils % (Auto) 23 % (37-80); Nucleated Red Blood Cell # 0.00 Thou/mm3 (0.00-0.00); Nucleated Red Blood Cell % 0 /100 WBC (0); Platelet Count 331 Thou/mm3 (140-440); RDW Standard Deviation 57.0 fL (36.4-46.3); Red Blood Count 4.81 Miln/mm3 (4.00-5.20); White Blood Count 5.2 Thou/mm3 (3.6-11.0)
[2025-03-03 06:32] LABS: Anion Gap 11 (7-16); BUN/Creatinine Ratio 8 Ratio (12-20); Blood Urea Nitrogen < 5 mg/dL (9-23); Calcium 9.0 mg/dL (8.3-10.6); Carbon Dioxide 17.2 mMol/L (20.0-31.0); Chloride 114 mMol/L (98-107); Creatinine (Component) 0.6 mg/dL (0.6-1.3); Estimated Creatinine Clearance 108.3 mL/min (>60); Glucose 102 mg/dL (74-106); Magnesium 2.3 mg/dL (1.6-2.6); Osmolality,Calculated 280 (275-295); Phosphorous 3.1 mg/dL (2.4-5.1); Potassium 3.4 mMol/L (3.4-5.1); Sodium 142 mMol/L (136-145); eGFR > 60 See Note
[2025-03-03] MEDS: METOPROLOL SUCCINATE XL 25 MG TABCR PO (09:13)
[2025-03-03] MEDS: MEGESTROL ACET SUSP 400 MG/10 ML UDC 40 MG PO (09:13)
[2025-03-03] MEDS: PANTOPRAZOLE 40 MG TABLET PO (09:13)
[2025-03-03] MEDS: DEXTROSE 5%-NS 1,000 ML 100 ML IV ×2 (09:14→21:06)
[2025-03-03] MEDS: HEPARIN SOD INJ 5000 UNIT/ML VIAL SC ×2 (09:14→21:05)
[2025-03-03] MEDS: HYDROcodone/APAP 5/325 TABLET 1 TAB PO ×2 (09:26→18:44)
--- NOTE | 2025-03-03 11:36 | XR_ITS ---
Examination: Transvaginal ultrasound of the pelvis, complete Technique: Transvaginal sonographic images pelvis performed using ayala scale imaging Exam date and time: March 03, 2025 1207 hours, comparison 03/01/2025 INDICATIONS: Pelvic sonogram 03/01/2025 4.1 x 3.9 x 2.4 cm uterine mass containing fat. FINDINGS: Uterus 6.5 cm Fundal round fat-containing mass 2.7 x 3.1 x 3.0 cm Ovaries obscured by bowel gas Endometrial stripe 0.6 cm IMPRESSION: Benign appearing mass in the uterine fundus containing fat, recommend 6 month follow-up study.
--- NOTE | 2025-03-03 12:27 | PC.CC ---
Request from EDITH Feirro to obtain PA for Trusight Melodie 3 Plus sensor. Submitted via covermymeds - pending.
--- NOTE | 2025-03-03 13:40 | PD.ADDPROG ---
Addendum Progress Note Addendum Date of report being addended: 03/03/25 Narrative: I Vito Valdez MD reviewed the note and agree with the resident's assessment & plan with modifications/additions/exceptions as below. I have personally reviewed labs, imaging, home meds/prior records, examined the patient, formulated and discussed management plan with the IM team. A 60-year-old female with history of HTN, DM, hypothyroidism, RA presented with 2 weeks of intractable vomiting and right lower quadrant abdominal pain admitted for intractable vomiting and severe ketoacidosis. Further workup did reveal significantly elevated TSH and low free T4 levels consistent with untreated hypothyroidism, continue on IV levothyroxine, no more vomiting nausea has been improved however continues to remain fatigued all slowed speech. Abdominal imaging did reveal heterogenous uterine cyst/mass without any menorrhagia, gynecology recommended minimally invasive surgical resection likely due to [facility]. Will get transvaginal ultrasound to evaluate potential vascularity of the lesion to decide referral outpatient vs inpatient to a higher level of care. Pending labs including ACTH, 8 a.m. cortisol level, beta-hCG, AFP, CEA, CA125, CEA 19-9 for potential evaluation of uterine lesion. Will consult endocrinology regarding hypothyroid myxedema picture.
--- NOTE | 2025-03-03 15:05 | ESPR_ITS ---
<Statement entered by Jose Moore MD - 03/03/25 16:03> No acute overnight events. Seen and examined at bedside and patient resting comfortably in bed. States that she has been able to go to and from the restroom on her walker, but does endorse still feeling weak. Also endorses feeling nauseous but no episodes of emesis since being admitted. Obtained transvaginal ultrasound, ovaries obscured by bowel gas and shows benign- appearing mass in the uterus fundus. Per COSMETIC CONSULTANT, unlikely that her uterine mass is contributing to her clinical picture. Reached out to endocrinology and will await for further recommendations. Otherwise, pending GI and nephrology recommendations. VSS, CBC unremarkable, chem panel showed HCO3 of 17 from 21 yesterday but otherwise unremarkable. ----- Note reviewed and agree with care plan as documented. Please refer to the note below for further details. Plan discussed with attending physician Dr. José Miguel Moore MD PGY-2 Internal Medicine Documentation for date of: 03/03/25 Subjective Subjective Interval history: Patient seen and examined at bedside. No acute overnight events. Patient is tolerating oral intake, will advance diet as tolerated today. OB consulted. Vital significant for stage I hypertension of 140/85, remainder of vitals within normal limits. Exam Vital Signs Temp Pulse Resp BP Pulse Ox O2 Del Method 98 F 73 18 100/61 96 Room Air 03/03/25 11:26 03/03/25 11:26 03/03/25 11:26 03/03/25 11:26 03/03/25 11:26 03/03/25 11:26 Narrative Exam General: Awake and in no acute distress. Conversational and non-toxic appearing. Neurologic: GCS 15. Alert and oriented x3, no gross neurological deficit, and patient able to move all 4 extremities. HEENT: Normocephalic, atraumatic, mucous membranes moist. Pupils reactive to light. Heart: Regular rate and rhythm, normal S1 and S2, no murmurs. Lungs: Clear to auscultation bilaterally with no wheezing or crackles. Abdomen: Pain on deep palpation of the right lower quadrant. Extremities: No edema. 2+ radial and dorsalis pedis pulses bilaterally. Skin: Warm. Dry. No rash or ecchymoses. Objective Labs 03/03/25 05:46 03/03/25 05:46 Labs: Laboratory Results - last 24 hr 03/02/25 03/03/25 05:18 05:46 WBC 5.2 RBC 4.81 Hgb 13.4 Hct 40.6 MCV 84 MCH 27.9 MCHC 33.0 RDW Std Deviation 57.0 H Plt Count 331 D Neut % (Auto) 23 L Lymph % (Auto) 55 H Clinch % (Auto) 13 H Eos % (Auto) 7 Baso % (Auto) 1 Neut # (Auto) 1.2 L Lymph # (Auto) 2.9 Clinch # (Auto) 0.7 Eos # (Auto) 0.4 Baso # (Auto) 0.1 Immature Gran # (Auto) 0.01 H Absolute Nucleated RBC 0.00 Immature Gran % 0 Nucleated RBC % 0 Sodium 142 Potassium 3.4 Chloride 114 H Carbon Dioxide 17.2 L Anion Gap 11 BUN < 5 L Creatinine 0.6 Estim Creat Clear Calc 108.3 eGFR > 60 BUN/Creatinine Ratio 8 L Glucose 102 Calculated Osmolality 280 Calcium 9.0 Phosphorus 3.1 Magnesium 2.3 Tumor Marker AFP 3.10 ABG Interpretation ABG results: 03/01/25 02:05 ABG pH 7.47 H ABG pCO2 22 L ABG pO2 88 ABG HCO3 16 L ABG O2 Saturation 98 ABG Base Excess -6 L Quality Measures Quality Measures VTE prophylaxis Assessment & Plan Assessment Current Active Medications: Generic Name Dose Route Start Last Admin Trade Name Freq PRN Reason Stop Dose Admin Hydrocodone Bitart/Acetaminophen 1 tab 03/02/25 09:11 03/03/25 09:26 Hydrocodone/Apap 5/325 Tablet PO 03/07/25 09:10 1 tab Q6HR PRN Administration PAIN SCALE 4-10(Mod-Sev Atorvastatin Calcium 10 mg 03/01/25 21:00 03/02/25 20:08 Atorvastatin Calcium 20 Mg Tablet PO 03/31/25 20:59 10 mg HS MEGAN Administration Dextrose 25 ml 03/01/25 06:29 Dextrose 50%-Water Inj 50 Ml Syringe IV 03/31/25 06:28 Q15MIN PRN BG 50-70 responsive npo pt Dextrose 50 ml 03/01/25 06:29 Dextrose 50%-Water Inj 50 Ml Syringe IV 03/31/25 06:28 Q15MIN PRN BG <50 OR BG <70 & pt unresponsive Gabapentin 200 mg 03/01/25 14:00 03/03/25 14:54 Gabapentin 100 Mg Capsule PO 03/31/25 13:59 200 mg TID MEGAN Administration Glucagon 1 mg 03/01/25 06:29 Glucagon Inj 1 Mg Vial IM Q15MIN PRN BG <70, and no IV access Heparin Sodium (Porcine) 5,000 unit 03/01/25 09:00 03/03/25 09:14 Heparin Sod Inj 5000 Unit/Ml Vial SC 03/15/25 08:59 5,000 unit BID MEGAN Administration Dextrose/Sodium Chloride 1,000 mls @ 100 mls/hr 03/01/25 05:45 03/03/25 09:29 D5-Ns IV 03/31/25 05:44 Not Given .Q10H MEGAN Insulin Human Lispro 0 unit 03/01/25 06:30 03/03/25 11:43 Insulin Lispro (Admelog) 1 Unit/0.01 Ml Unit SC 03/31/25 06:29 Not Given Q6H [facility] Protocol Levothyroxine Sodium 96 mcg 03/01/25 09:00 03/03/25 09:12 Levothyroxine Inj 100 Mcg Vial IV 03/31/25 08:59 96 mcg QDAY MEGAN Administration Megestrol Acetate 40 mg 03/01/25 10:00 03/03/25 09:13 Megestrol Acet Susp 400 Mg/10 Ml Udc PO 03/31/25 09:59 40 mg QDAY MEGAN Administration Metoprolol Succinate 25 mg 03/02/25 11:45 03/03/25 09:13 Metoprolol Succinate Xl 25 Mg Tabcr PO 04/01/25 11:44 25 mg QDAY MEGAN Administration Pantoprazole Sodium 40 mg 03/03/25 09:00 03/03/25 09:13 Pantoprazole 40 Mg Tablet PO 04/02/25 08:59 40 mg QDAY MEGAN Administration Promethazine HCl 12.5 mg 03/01/25 06:31 Promethazine Hcl 25 Mg Tablet PO 03/31/25 06:30 Q6H PRN nausea and vomiting Protocol Plan Summary: Arlene Palumbo is a 60 y/o F with PMHx significant for insulin dependent diabetes, hypertension, hypothyroidism, rheumatoid arthritis presents with chief complaint of intractable nausea/vomiting x 2.5 weeks. She was admitted for intractable nausea/vomiting. #Intractable nausea/vomiting Patient reports intractable nausea and vomiting for the past 2.5 weeks on arrival, endorses ~ 10 vomiting episodes per day, some food particles present, non-bloody. No signs of hematemesis. Patient is also had poor p.o. intake during this time, only able to tolerate minimal fluids. Consider gastroparesis versus hypothyroid versus endocrine tumor. EKG showed T waves roughly alf between QRS complexes, concern for long QT syndrome in the presence of amitriptyline and Zofran use. Patient has begun to tolerate clear liquid diet. Plan: - Zofran 4 mg IV every 6 hours as needed - GI consulted. - Medical Care Manager consult. - Nephrology consult. - Consider endocrine consult. - Pending ACTH - AFP negative - Beta-hCG negative - Hold home amitriptyline #Uterine mass There was a 6 x 6.2 x 6.4 centimeter hyperechoic mass with an avascular region on pelvic ultrasound on 05/06/2024. There was a hyperechoic 4.1 x 3.9 x 2.4 cm uterine mass on pelvic ultrasound on 03/01/2025 Transvaginal ultrasound on 03/03/2025 showed a benign mass in the uterine fundus measuring 2.7 x 2.1 x 3.0 cm. OB does not believe that the patient's uterine mass is the cause of her current symptoms given the reduction in size and the location. OB recommends follow-up with city tax auditor outpatient and additional tumor markers: GILBERTO panel, CEA, CA 125, CA 19-9. Plan: - CA125, CA 19-9 ordered - Follow-up outpatient COSMETIC CONSULTANT #Mixed Acid Base Disorder #Hypercalcemia (Resolved) #Hypokalemia #Hypomagnesemia #Hypophosphatemia Mixed Metabolic Alkalosis and Metabolic acidosis (vomiting/diarrhea (diuretic use) with starvation ketoacidosis) Patient presented with serum bicarb 19.4, anion gap 18. ABG pH of 7.47, pCO2 22, PaO2 88, HCO3 16. Glucose 107. Suspect starvation ketosis in the setting of poor p.o. intake x 2.5 weeks due to intractable nausea/vomiting. Patient presented with corrected calcium 10.2. Received 1 L bolus normal saline in the ED. Patient has had electrolyte derangements in the presence of vomiting and diarrhea Plan: - Treat nausea/vomiting as above - Monitor and replete electrolytes as needed #Stage I hypertension Blood pressure 140/85 Plan: -Metoprolol succinate 25 mg p.o. daily #Insulin-dependent diabetes Patient with history of diabetes, takes insulin as needed. Does not take any other diabetic medications. A1c 5.3% 03/01/2025, glucose 107 on admission Fingersticks have been between 100-120 Plan: -Continue insulin sliding scale #Hyperlipidemia Patient takes lovastatin 40 mg daily Plan: - Hold in the presence of nausea vomiting #Hypothyroidism 137 mcg po home meds levothyroxine q day Plan: - Continue with 96 mcg IV q day #Rheumatoid arthritis Patient history as stated. Med rec's pending. Plan: - Resume home meds when appropriate Hospital Management: Disposition: Med Tele, advancing diet as tolerated, pending CA 19-9 and CA 125. Diet: Clear liquid GI Prophylaxis: Protonix 40 mg IV qd Bowel Prophylaxis: n/a DVT Prophylaxis: Heparin CODE STATUS: Full Code Patient was seen and discussed with my attending physician Dr. José Miguel WHEATLEY and my senior resident Dr. Teresa WHEATLEY PGY-2. Amos Mariano DO PGY-1.
[2025-03-03] MEDS: ATORVASTATIN CALCIUM 20 MG TABLET 10 MG PO (21:06)
[2025-03-04] VITALS (10 sets, daily range): BP systolic 95–117; BP diastolic 55–87; PULSE 69–82; RESP 13–19; TEMP 36.1–36.8; O2SAT 96–98
[2025-03-04] MEDS: HYDROcodone/APAP 5/325 TABLET 1 TAB PO ×2 (03:48→18:25)
[2025-03-04] MEDS: GABAPENTIN 100 MG CAPSULE 200 MG PO ×3 (05:19→21:24)
[2025-03-04 05:37] LABS: Anion Gap 10 (7-16); BUN/Creatinine Ratio 8 Ratio (12-20); Blood Urea Nitrogen < 5 mg/dL (9-23); Calcium 8.2 mg/dL (8.3-10.6); Carbon Dioxide 18.6 mMol/L (20.0-31.0); Chloride 117 mMol/L (98-107); Creatinine (Component) 0.6 mg/dL (0.6-1.3); Estimated Creatinine Clearance 108.3 mL/min (>60); Glucose 98 mg/dL (74-106); Magnesium 1.7 mg/dL (1.6-2.6); Osmolality,Calculated 287 (275-295); Phosphorous 2.5 mg/dL (2.4-5.1); Potassium 4.2 mMol/L (3.4-5.1); Sodium 146 mMol/L (136-145); eGFR > 60 See Note
[2025-03-04 07:14] LABS: Basophils # (Auto) 0.1 Thou/mm3 (0.0-0.2); Basophils % (Auto) 1 % (0-2.5); Eosinophils # (Auto) 0.4 Thou/mm3 (0.0-0.5); Eosinophils % (Auto) 7 % (0-10); Hematocrit 34.9 % (36.0-46.0); Hemoglobin 11.6 g/dL (12.0-16.0); Immature Granulocytes Auto 0.01 Thou/mm3 (0.00-0.00); Lymphocytes # (Auto) 2.0 Thou/mm3 (1.0-4.8); Lymphocytes % (Auto) 39 % (10-50); Mean Corpuscular HGB Conc 33.2 g/dl (31.0-37.0); Mean Corpuscular Hemoglobin 28.6 pg (25.0-35.0); Mean Corpuscular Volume 86 fL (80-100); Monocytes # (Auto) 0.8 Thou/mm3 (0.0-0.8); Monocytes % (Auto) 15 % (0-12); Neutrophils # (Auto) 2.0 Thou/mm3 (1.8-7.7); Neutrophils % (Auto) 39 % (37-80); Nucleated Red Blood Cell # 0.00 Thou/mm3 (0.00-0.00); Nucleated Red Blood Cell % 0 /100 WBC (0); Platelet Count 271 Thou/mm3 (140-440); RDW Standard Deviation 59.5 fL (36.4-46.3); Red Blood Count 4.06 Miln/mm3 (4.00-5.20); White Blood Count 5.1 Thou/mm3 (3.6-11.0)
[2025-03-04] MEDS: HEPARIN SOD INJ 5000 UNIT/ML VIAL SC ×2 (09:52→21:25)
[2025-03-04] MEDS: MEGESTROL ACET SUSP 400 MG/10 ML UDC 40 MG PO (09:52)
[2025-03-04] MEDS: PANTOPRAZOLE 40 MG TABLET PO (09:53)
[2025-03-04] MEDS: METOPROLOL SUCCINATE XL 25 MG TABCR PO (10:00)
[2025-03-04 11:30] LABS: CA 125 13.0 U/mL (<30.2)
[2025-03-04] MEDS: LACTOBACILLUS RHAMNOSUS 1 CAP PO ×2 (12:00→21:25)
--- NOTE | 2025-03-04 12:17 | PC.NURSE ---
Called MIRA Oliver at [phone] to inform him patient is discharged and ready to go. There was no answer, I left a voicemail with the reason for the call and instructions for picking up the patient.
--- NOTE | 2025-03-04 13:22 | ESPR_ITS ---
<Statement entered by Jose Moore MD - 03/04/25 19:27> No acute overnight events. Seen and examined at bedside and patient continues to appear weak. States that she has had multiple loose bowel movements per day, ranging between 3-5, and describes it as loose and at times watery but not foul- smelling. Ob-automobile rental representative evaluated patient and does not believe uteirne mass to be a part of clinical picture and endocrinology does not recommend any further inpatient work-up from their standpoint. Pending both GI and nephrology recommendations at this time. Otherwise, will order stool studies and advance diet. ----- Note reviewed and agree with care plan as documented. Please refer to the note below for further details. Plan discussed with attending physician Dr. Manny Moore MD PGY-2 Internal Medicine Documentation for date of: 03/04/25 Subjective Subjective Interval history: Patient seen and examined at bedside. No acute overnight events. Patient denies persistent nausea or vomiting and he has been able to tolerate intake well. Complains of watery loose stools and right lower quadrant abdominal pain. Although denies uterine bleeding, she feels as though undergoing one. Patient reports feeling fatigue, loss of appetite, and weight loss over the past few months. Denies fevers, or chills. Exam Vital Signs Temp Pulse Resp BP Pulse Ox O2 Del Method 97 F 73 16 95/55 L 96 Room Air 03/04/25 11:57 03/04/25 11:57 03/04/25 11:57 03/04/25 11:57 03/04/25 11:57 03/04/25 11:57 Narrative Exam General: Awake and in no acute distress. Conversational and non-toxic appearing. Neurologic: GCS 15. Alert and oriented x3, no gross neurological deficit, and patient able to move all 4 extremities. HEENT: Normocephalic, atraumatic, mucous membranes moist. Pupils reactive to light. Heart: Regular rate and rhythm, normal S1 and S2, no murmurs. Lungs: Clear to auscultation bilaterally with no wheezing or crackles. Abdomen: Pain on deep palpation of the right lower quadrant. Extremities: No edema. 2+ radial and dorsalis pedis pulses bilaterally. Skin: Warm. Dry. No rash or ecchymoses. Objective Labs 03/04/25 06:39 03/04/25 14:49 Labs: Laboratory Results - last 24 hr 03/04/25 03/04/25 04:18 06:39 WBC 5.1 RBC 4.06 Hgb 11.6 L Hct 34.9 L MCV 86 MCH 28.6 MCHC 33.2 RDW Std Deviation 59.5 H Plt Count 271 D Neut % (Auto) 39 Lymph % (Auto) 39 [place] % (Auto) 15 H Eos % (Auto) 7 Baso % (Auto) 1 Neut # (Auto) 2.0 Lymph # (Auto) 2.0 [place] # (Auto) 0.8 Eos # (Auto) 0.4 Baso # (Auto) 0.1 Immature Gran # (Auto) 0.01 H Absolute Nucleated RBC 0.00 Immature Gran % 0 Nucleated RBC % 0 Sodium 146 H Potassium 4.2 D Chloride 117 H Carbon Dioxide 18.6 L Anion Gap 10 BUN < 5 L Creatinine 0.6 Estim Creat Clear Calc 108.3 eGFR > 60 BUN/Creatinine Ratio 8 L Glucose 98 Calculated Osmolality 287 Calcium 8.2 L Phosphorus 2.5 Magnesium 1.7 CA 125 Antigen 13.0 TSH Cancelled Free T4 Cancelled ABG Interpretation ABG results: 03/01/25 02:05 ABG pH 7.47 H ABG pCO2 22 L ABG pO2 88 ABG HCO3 16 L ABG O2 Saturation 98 ABG Base Excess -6 L Quality Measures Quality Measures VTE prophylaxis Assessment & Plan Assessment Current Active Medications: Generic Name Dose Route Start Last Admin Trade Name Freq PRN Reason Stop Dose Admin Hydrocodone Bitart/Acetaminophen 1 tab 03/02/25 09:11 03/04/25 03:48 Hydrocodone/Apap 5/325 Tablet PO 03/07/25 09:10 1 tab Q6HR PRN Administration PAIN SCALE 4-10(Mod-Sev Atorvastatin Calcium 10 mg 03/01/25 21:00 03/03/25 21:06 Atorvastatin Calcium 20 Mg Tablet PO 03/31/25 20:59 10 mg HS MEGAN Administration Dextrose 50 ml 03/01/25 06:29 Dextrose 50%-Water Inj 50 Ml Syringe IV 03/31/25 06:28 Q15MIN PRN BG <50 OR BG <70 & pt unresponsive Gabapentin 200 mg 03/01/25 14:00 03/04/25 13:08 Gabapentin 100 Mg Capsule PO 03/31/25 13:59 200 mg TID MEGAN Administration Glucagon 1 mg 03/01/25 06:29 Glucagon Inj 1 Mg Vial IM Q15MIN PRN BG <70, and no IV access Heparin Sodium (Porcine) 5,000 unit 03/01/25 09:00 03/04/25 09:52 Heparin Sod Inj 5000 Unit/Ml Vial SC 03/15/25 08:59 5,000 unit BID MEGAN Administration Insulin Human Lispro 0 unit 03/03/25 17:00 03/04/25 11:30 Insulin Lispro (Admelog) 1 Unit/0.01 Ml Unit SC 04/02/25 16:59 Not Given ACHS MEGAN Protocol Lactobacillus Rhamnosus 1 cap 03/04/25 12:00 03/04/25 12:00 Lactobacillus Rhamnosus 1 Cap PO 04/03/25 11:59 1 cap BID MEGAN Administration Levothyroxine Sodium 96 mcg 03/01/25 09:00 03/04/25 09:52 Levothyroxine Inj 100 Mcg Vial IV 03/31/25 08:59 96 mcg QDAY MEGAN Administration Megestrol Acetate 40 mg 03/01/25 10:00 03/04/25 09:52 Megestrol Acet Susp 400 Mg/10 Ml Udc PO 03/31/25 09:59 40 mg QDAY MEGAN Administration Metoprolol Succinate 25 mg 03/02/25 11:45 03/04/25 10:00 Metoprolol Succinate Xl 25 Mg Tabcr PO 04/01/25 11:44 25 mg QDAY MEGAN Administration Promethazine HCl 12.5 mg 03/01/25 06:31 Promethazine Hcl 25 Mg Tablet PO 03/31/25 06:30 Q6H PRN nausea and vomiting Protocol Plan Summary: Arlene Palumbo is a 60 y/o F with PMHx significant for insulin dependent diabetes, hypertension, hypothyroidism, rheumatoid arthritis presents with chief complaint of intractable nausea/vomiting x 2.5 weeks. She was admitted for intractable nausea/vomiting. #Intractable nausea/vomiting, resolved #Diarrhea Patient reports intractable nausea and vomiting for the past 2.5 weeks on arrival, endorses ~ 10 vomiting episodes per day, some food particles present, non-bloody. No signs of hematemesis. Patient is also had poor p.o. intake during this time, only able to tolerate minimal fluids. Consider gastroparesis versus hypothyroid versus endocrine tumor. EKG showed T waves roughly nursing home between QRS complexes, concern for long QT syndrome in the presence of amitriptyline and Zofran use. On 03/04, patient had had 3 loose stools in the morning and 5 more the day before, persistent pattern of BM for a few days. Hemoglobin 11.6, down from 13.4 yesterday. - Ordered Giardia and Norovirus stool antigens testing. - Lacticaseibacillus rhamnosus PO 1cap bid - Zofran 4 mg IV every 6 hours as needed - GI consulted, appreciate recs - Detail Supervisor consulted, appreciate recs - Nephrology consulted, appreciate recs - Endocrinology consulted, appreciate recs - Pending ACTH - AFP negative - Beta-hCG negative - Hold home amitriptyline #Uterine mass There was a 6 x 6.2 x 6.4 centimeter hyperechoic mass with an avascular region on pelvic ultrasound on 05/06/2024. There was a hyperechoic 4.1 x 3.9 x 2.4 cm uterine mass on pelvic ultrasound on 03/01/2025 Transvaginal ultrasound on 03/03/2025 showed a benign mass in the uterine fundus measuring 2.7 x 2.1 x 3.0 cm. OB does not believe that the patient's uterine mass is the cause of her current symptoms given the reduction in size and the location. OB recommends follow-up with powder compounder outpatient and additional tumor markers: GILBERTO panel, CEA, CA 125, CA 19-9. CA 125: 13 negative. - CA125, CA 19-9 ordered - Follow-up outpatient [facility] #Mixed Acid Base Disorder #Hypercalcemia (Resolved) #Hypokalemia #Hypomagnesemia #Hypophosphatemia Mixed Metabolic Alkalosis and Metabolic acidosis (vomiting/diarrhea (diuretic use) with starvation ketoacidosis) Patient presented with serum bicarb 19.4, anion gap 18. ABG pH of 7.47, pCO2 22, PaO2 88, HCO3 16. Glucose 107. Suspect starvation ketosis in the setting of poor p.o. intake x 2.5 weeks due to intractable nausea/vomiting. Patient presented with corrected calcium 10.2. Received 1 L bolus normal saline in the ED. Patient has had electrolyte derangements in the presence of vomiting and diarrhea HCO3 18.6, AG 10, K+ borderline low (3.5), which means patient has NAGMA, which fits classical picture of diarrhea. - Nephrology consulted, appreciate recs - Treat nausea/vomiting as above - Monitor and replete electrolytes as needed #Stage I hypertension Blood pressure 140/85 - Metoprolol succinate 25 mg p.o. daily #Insulin-dependent diabetes Patient with history of diabetes, takes insulin as needed. Does not take any other diabetic medications. A1c 5.3% 03/01/2025, glucose 107 on admission Fingersticks have been between 100-120 - Continue insulin sliding scale #Hyperlipidemia Patient takes lovastatin 40 mg daily - Hold in the presence of nausea vomiting #Hypothyroidism 137 mcg po home meds levothyroxine q day 03/04: TSH 12.92 (H) and T4 0.98 WNL - Stopped 96 mcg IV q day and transitioned to PO 137 mcg QAM #Rheumatoid arthritis Patient history as stated. Med rec's pending. - Resume home meds when appropriate Hospital Management: Disposition: Med Tele, advancing diet as tolerated, pending CA 19-9 and CA 125, nephro and GI recs Diet: regular GI Prophylaxis: Protonix 40 mg IV qd Bowel Prophylaxis: n/a DVT Prophylaxis: Heparin CODE STATUS: Full Code Patient was seen and discussed with my attending physician Dr. Bryant and my senior resident Dr. Teresa WHEATLEY PGY-2. Virginia Peter, DO PGY 1. Attending Provider Attestation/Addendum I attest that I was physically present for the evaluation, physical examination, lab and imaging review of the patient with the residents. I discussed the case with the residents and agree with the findings and plans of care as documented above. Patient seen and examined at bedside this morning. Appears comfortable and denies any new complaints. But patient has been having multiple loose stool, at least 3 loose stool this morning and more than 5 yesterday. Noted to have non- anion gap metabolic acidosis this morning, with bicarbonate of 18.6 and anion gap 10. Possibly secondary to diarrheal episode. She has been having diarrhea for last few days but nausea and vomiting for longer period of time. She continues to have some nausea but denies any vomiting today. We will obtain stool studies to find out cause for her diarrhea. Hemoglobin today is 11.6 compared to 13.4 yesterday. No signs of active bleeding, we will monitor closely. Patient has been evaluated by [facility] regarding her pelvic mass, recommended outpatient workup. Nephrology following patient with us, appreciate recommendations. Will be discussed with GI regarding her multiple loose stools if does not improve. Dewayne Bryant MD
[2025-03-04 13:36] LABS: Free T4 (Free Thyroxine) 0.98 ng/dL (0.89-1.76); Thyroid Stimulating Hormone 12.92 uIU/mL (0.55-4.78)
--- NOTE | 2025-03-04 13:38 | PC.NURSE ---
Spoke with Dr. Salamanca's coverage regarding the Banatrol package order. This nurse asked if he could put how many times a day the medication is to be given to the patient. Doctor said he would clarify the order.
[2025-03-04 15:16] LABS: Albumin, Serum 2.5 gm/dL (3.4-4.8); Anion Gap 10 (7-16); BUN/Creatinine Ratio 8 Ratio (12-20); Blood Urea Nitrogen < 5 mg/dL (9-23); Calcium 8.0 mg/dL (8.3-10.6); Calcium (Corrected) 9.2 mg/dL (8.5-10.1); Carbon Dioxide 16.4 mMol/L (20.0-31.0); Chloride 117 mMol/L (98-107); Creatinine (Component) 0.6 mg/dL (0.6-1.3); Estimated Creatinine Clearance 108.3 mL/min (>60); Glucose 169 mg/dL (74-106); Osmolality,Calculated 286 (275-295); Phosphorous 2.8 mg/dL (2.4-5.1); Potassium 3.5 mMol/L (3.4-5.1); Sodium 143 mMol/L (136-145); eGFR > 60 See Note
--- NOTE | 2025-03-04 15:19 | PD.RESCONSUL ---
HPI Data of Consult Consult date: 03/04/25 Requesting Physician: Benson Rubin MD Admitting Provider: Anne Hicks MD Attending Provider: Benson Rubin MD Primary Care Provider: Miah Coles MD Consult Narrative Reason for consult: Metabolic acidosis History of present illness: History of Present Illness: 60 y/o F with PMHx significant for insulin dependent diabetes, hypertension, hypothyroidism, rheumatoid arthritis presented to the hospital due to 03/01/2025, significant nausea, vomiting, and diarrhea. Patient experienced 2 weeks of persistent nausea and vomiting, followed by onset of profuse watery diarrhea beginning approximately 5 days ago before coming to the hospital. She reports vomiting more than 10 times daily and experiencing continuous diarrhea. Symptoms are associated with generalized weakness and inability to tolerate oral intake. She denies hematemesis or bloody stools. She also denies recent travel or known sick contacts. She endorses chills, but deepa fever. Additionally she notes mild shortness of breath. Denies chest pain, palpation. Patient was admitted for admitted for intractable nausea/vomiting. Nephrology has been consulted for management of metabolic alkalosis. ED Course: -Initial vitals were Temperature 97.6 ?F pulse 102, respiratory rate 16, blood pressure 122/89, 97% oxygen saturation on room air -Labs significant for ABG pH of 7.47, pCO2 22, PaO2 88, HCO3 16; potassium 2.7, anion gap 18, lactic acid 2.3, corrected calcium 7.2, CRP 3.6, beta hydroxybutyrate 5.4, TSH 44.5, free T4.66, free T32.1; urinalysis showed 2+ ketones, urine sodium less than 15, urine potassium 11, urine chloride less than 20; -Imaging included Gallbladder ultrasound, pelvis ultrasound, CT CAP, EKG (no read yet, f/u) Blood cultures x 2 -In the ED, patient was given Sodium chloride IV bolus 1 L Zofran, morphine, potassium chloride oral and liquid (liquid not tolerated), maintenance fluids, diazepam PMH: Hypertension, diabetes, hypothyroidism, rheumatoid arthritis PSH: Cholecystectomy, left cataract surgery, left ankle fracture repair, left knee repair, right shoulder repair x 2 SH: Denies tobacco use. Reports usually drinking 1?2 beers per week in the past. Reports taking 1 CBD gummy daily for back pain. Allergies:?NKDA Medications: amitriptyline, megestrol, promethazine, Levothyroxine, insulin, lovastatin, Enbrel 03/04/2025: Labs reviewed and patient examined at the bedside. On the day of admission (03/01), patient had alkalemia (ABG pH:7.47), Respiratory alkalosis (ABG pCO2:22), Metabolic acidosis (ABG HCO3:16), high Anion gap of 18. Based on winter's formula, expected pCO2 was 32 +/- 2, but actual pCO2 was 22 which is much lower than expected and confirms excessive respiratory alkalosis, not just compensation. Beta-hydroxybutyrate was elevated (5.4) and significant hypokalemia of 2.7. To summarize, patient likely had HAGMA due to starvation ketoacidosis caused by poor PO intake from prolonged vomiting/diarrhea and excessive respiratory alkalosis likely from hyperventilation from stress or pain from nausea/vomiting/diarrhea. As of today (03/04), Patient had normal anion gap of 10 and borderline low potassium (3.5), which means patient has NAGMA, which fits classical picture of diarrhea. However, the root cause of patient's symptoms needs to be further explored, as patient denied previous infections, toxic ingestions, or new abnormal symptoms, and CTAP only showed mass in uterus, which according to OBGYN, unlikely to be the primary cause of her symptom. cc:: cc: Benson Rubin MD Review of Systems Review of Systems Narrative Review of Systems: All 12 systems assessed and the patient denies unless otherwise stated in HPI Exam Vital Signs Temp Pulse Resp BP Pulse Ox O2 Del Method 97 F 73 16 95/55 L 96 Room Air 03/04/25 11:57 03/04/25 11:57 03/04/25 11:57 03/04/25 11:57 03/04/25 11:57 03/04/25 11:57 Narrative Exam General: Stressed, weak, AAO x3 Eye: PERRL, EOMI, normal conjunctiva, no scleral icterus HENT: Normocephalic, atraumatic, hearing intact to conversation at normal volume, moist oral mucosa Neck: Supple, non-tender, no JVD, no lymphadenopathy Lungs: Non-labored respirations, symmetric chest rise, Clear to auscultate bilaterally, No wheezing, rhonchi, crackles Heart: Peripheral pulses intact bilaterally, Regular Rate and Rhythm. Abdomen: Soft, non-tender, non-distended, no palpable masses Musculoskeletal: Normal range of motion and strength, No visible joint swelling, +1 Pitting edema bilaterally Skin: Skin is warm, dry, no rashes or lesions. Psychiatric: Cooperative, appropriate mood and affect, Awake and alert, not agitated Neuro: Cranial nerves II-XII grossly intact. \Sensations intact to light touch. Results Labs 03/05/25 05:26 03/05/25 14:59 Labs: Short CBC 03/04/25 Range/Units 06:39 WBC 5.1 (3.6-11.0) Thou/mm3 Hgb 11.6 L (12.0-16.0) g/dL Hct 34.9 L (36.0-46.0) % Plt Count 271 D (140-440) Thou/mm3 BMP 03/04/25 04:18 Sodium 146 H Potassium 4.2 D Chloride 117 H Carbon Dioxide 18.6 L BUN < 5 L Creatinine 0.6 Glucose 98 Calcium 8.2 L ABG Interpretation ABG results: 03/01/25 02:05 ABG pH 7.47 H ABG pCO2 22 L ABG pO2 88 ABG HCO3 16 L ABG O2 Saturation 98 ABG Base Excess -6 L Quality Measures Quality Measures VTE prophylaxis Medications Home Medications and Allergies Home Medications ?Medication ?Instructions ?Recorded ?Confirmed ?Type hydrochlorothiazide 25 mg tablet 25 mg PO QAM 03/25/24 03/01/25 History Held on 02/06/25. Instructions: resume with pcp lovastatin 40 mg tablet 40 mg PO QDAY 03/25/24 03/01/25 History etanercept 50 mg/mL (1 mL) 50 mg subcut .Qfriday 02/02/25 03/01/25 History subcutaneous pen injector (Enbrel SureClick) gabapentin 100 mg capsule 200 mg PO Q8H 02/02/25 03/01/25 History levothyroxine 137 mcg tablet 137 mcg PO QAMAC 02/02/25 03/01/25 History metformin 500 mg tablet 500 mg PO BIDWM 02/02/25 03/01/25 History Allergies Allergy/AdvReac Type Severity Reaction Status Date / Time kiwi Allergy Verified 03/01/25 04:00 Visit Medications Hydrocodone Bitart/Acetaminophen (Hydrocodone/Apap 5/325 Tablet) 1 tab PO Q6HR PRN PRN Reason: PAIN SCALE 4-10(Mod-Sev Stop: 03/07/25 09:10 Last Admin: 03/04/25 03:48 Dose: 1 tab Atorvastatin Calcium (Atorvastatin Calcium 20 Mg Tablet) 10 mg PO HS [facility] Stop: 03/31/25 20:59 Last Admin: 03/03/25 21:06 Dose: 10 mg Dextrose (Dextrose 50%-Water Inj 50 Ml Syringe) 50 ml IV Q15MIN PRN PRN Reason: BG <50 OR BG <70 & pt unresponsive Stop: 03/31/25 06:28 Gabapentin (Gabapentin 100 Mg Capsule) 200 mg PO TID [facility] Stop: 03/31/25 13:59 Last Admin: 03/04/25 13:08 Dose: 200 mg Glucagon (Glucagon Inj 1 Mg Vial) 1 mg IM Q15MIN PRN PRN Reason: BG <70, and no IV access Heparin Sodium (Porcine) (Heparin Sod Inj 5000 Unit/Ml Vial) 5,000 unit SC BID [facility] Stop: 03/15/25 08:59 Last Admin: 03/04/25 09:52 Dose: 5,000 unit Insulin Human Lispro (Insulin Lispro (Admelog) 1 Unit/0.01 Ml Unit) 0 unit SC [facility]; Protocol Stop: 04/02/25 16:59 Last Admin: 03/04/25 11:30 Dose: Not Given Lactobacillus Rhamnosus (Lactobacillus Rhamnosus 1 Cap) 1 cap PO BID [facility] Stop: 04/03/25 11:59 Last Admin: 03/04/25 12:00 Dose: 1 cap Levothyroxine Sodium (Levothyroxine Inj 100 Mcg Vial) 96 mcg IV QDAY [facility] Stop: 03/31/25 08:59 Last Admin: 03/04/25 09:52 Dose: 96 mcg Megestrol Acetate (Megestrol Acet Susp 400 Mg/10 Ml Udc) 40 mg PO QDAY [facility] Stop: 03/31/25 09:59 Last Admin: 03/04/25 09:52 Dose: 40 mg Metoprolol Succinate (Metoprolol Succinate Xl 25 Mg Tabcr) 25 mg PO QDAY [facility] Stop: 04/01/25 11:44 Last Admin: 03/04/25 10:00 Dose: 25 mg Promethazine HCl (Promethazine Hcl 25 Mg Tablet) 12.5 mg PO Q6H PRN; Protocol PRN Reason: nausea and vomiting Stop: 03/31/25 06:30 Discontinued Medications Acetaminophen (Acetaminophen 325 Mg Tablet) 650 mg PO Q6H PRN PRN Reason: Fever >100.4 Stop: 03/31/25 05:44 Dextrose (Dextrose 50%-Water Inj 50 Ml Syringe) 25 ml IV Q15MIN PRN PRN Reason: BG 50-70 responsive npo pt Stop: 03/31/25 06:28 Diazepam (Diazepam Inj 5 Mg/Ml Vial 2 Ml) 2.5 mg IVP X1 ONE Stop: 03/01/25 03:47 Last Admin: 03/01/25 03:56 Dose: 2.5 mg Sodium Chloride (Ns) 1,000 mls @ 999 mls/hr IV .Q1H1M ONE Stop: 03/01/25 02:19 Last Infusion: 03/01/25 02:37 Dose: Infused Potassium Chloride (Kcl Ivpb) 10 meq in 100 mls @ 100 mls/hr IV X1 ONE Stop: 03/01/25 03:35 Last Infusion: 03/01/25 04:09 Dose: Infused Sodium Chloride (Ns) 1,000 mls @ 100 mls/hr IV .Q10H MEGAN Stop: 03/31/25 02:55 Last Admin: 03/01/25 02:59 Dose: 100 mls/hr Potassium Chloride (Kcl Ivpb) 10 meq in 100 mls @ 100 mls/hr IV X1 ONE Stop: 03/01/25 04:39 Last Infusion: 03/01/25 05:21 Dose: Infused Dextrose/Sodium Chloride (D5-Ns) 1,000 mls @ 100 mls/hr IV .Q10H MEGAN Stop: 03/31/25 05:44 Last Infusion: 03/04/25 07:47 Dose: Infused Thiamine HCl 100 mg/ Sodium (Chloride) 101 mls @ 202 mls/hr IV X1 ONE Stop: 03/01/25 06:14 Last Admin: 03/01/25 06:02 Dose: 202 mls/hr Acetaminophen (Ofirmev Inj) 1,000 mg in 100 mls @ 250 mls/hr IV Q6HR PRN PRN Reason: Pain 1-4 Acetaminophen (Ofirmev Inj) 1,000 mg in 100 mls @ 250 mls/hr IV Q6HR PRN PRN Reason: fever >100.4 or Pain 1-4 Stop: 03/02/25 05:58 Potassium Chloride (Kcl Ivpb) 10 meq in 100 mls @ 100 mls/hr IV Q1H [facility] Stop: 03/01/25 12:43 Last Admin: 03/01/25 19:12 Dose: 100 mls/hr Potassium Phosphate 22.5 mmol/ (Sodium Chloride) 507.5 mls @ 82.778 mls/hr IV X1 ONE Stop: 03/02/25 13:11 Last Infusion: 03/02/25 18:19 Dose: Infused Magnesium Sulfate (Magnesium Sulfate Ivpb) 2 gm in 50 mls @ 25 mls/hr IV X1 ONE Stop: 03/02/25 09:05 Last Admin: 03/02/25 08:50 Dose: 25 mls/hr Magnesium Sulfate (Magnesium Sulfate Ivpb) 2 gm in 50 mls @ 25 mls/hr IV X1 ONE Stop: 03/02/25 13:36 Last Admin: 03/02/25 18:30 Dose: 25 mls/hr Insulin Human Lispro (Insulin Lispro (Admelog) 1 Unit/0.01 Ml Unit) 0 unit SC Q6H MEGAN; Protocol Stop: 03/31/25 06:29 Last Admin: 03/03/25 11:43 Dose: Not Given Megestrol Acetate (Megestrol Acet 20 Mg Tablet) 40 mg PO QDAY [facility] Stop: 03/31/25 08:59 Last Admin: 03/03/25 10:14 Dose: Not Given Morphine Sulfate (Morphine Sulf Inj 4 Mg/Ml Vial) 4 mg IV X1 ONE Stop: 03/01/25 01:20 Last Admin: 03/01/25 01:36 Dose: 4 mg Morphine Sulfate (Morphine Sulf Inj 4 Mg/Ml Vial) 2 mg IVP Q4HR PRN PRN Reason: PAIN SCALE 4-10 Stop: 03/06/25 05:44 Last Admin: 03/01/25 20:16 Dose: 2 mg Ondansetron HCl (Ondansetron Inj 2 Mg/Ml Inj 2 Ml) 4 mg IVP X1 ONE; Protocol Stop: 03/01/25 01:20 Last Admin: 03/01/25 01:36 Dose: 4 mg Ondansetron HCl (Ondansetron Inj 2 Mg/Ml Inj 2 Ml) 4 mg IVP Q6HR PRN; Protocol PRN Reason: NAUSEA OR VOMITING Stop: 03/31/25 05:44 Ondansetron HCl (Ondansetron Inj 2 Mg/Ml Inj 2 Ml) 4 mg IVP Q6H PRN; Protocol PRN Reason: NAUSEA OR VOMITING Stop: 03/31/25 05:44 Pantoprazole Sodium (Pantoprazole Inj 40 Mg Vial) 40 mg IVP QDAY MEGAN Stop: 03/31/25 08:59 Last Admin: 03/02/25 08:50 Dose: 40 mg Pantoprazole Sodium (Pantoprazole 40 Mg Tablet) 40 mg PO QDAY MEGAN Stop: 04/02/25 08:59 Last Admin: 03/04/25 09:53 Dose: 40 mg Potassium Chloride (Potassium Chloride 10% 20 Meq/15 Ml Udc) 40 meq PO X1 ONE Stop: 03/01/25 02:37 Last Admin: 03/01/25 02:53 Dose: Not Given Potassium Chloride (Potassium Chloride 20 Meq Tabcr) 20 meq PO X1 ONE Stop: 03/03/25 07:25 Last Admin: 03/03/25 09:12 Dose: 20 meq Assessment & Plan Plan 60 y/o F with PMHx significant for insulin dependent diabetes, hypertension, hypothyroidism, rheumatoid arthritis presented to the hospital due to 03/01/2025, significant nausea, vomiting, and diarrhea. Patient was admitted for admitted for intractable nausea/vomiting. Nephrology has been consulted for management of metabolic alkalosis. #Intractable Nausea/Vomiting/Diarrhea #Normal Anion Gap Metabolic Acidosis (NAGMA) #High Anion Gap Metabolic Acidosis (HAGMA) - Resolved #Respiratory Alkalosis #Electrolyte abnormality -On the day of admission (03/01), patient had alkalemia (ABG pH:7.47), Respiratory alkalosis (ABG pCO2:22), Metabolic acidosis (ABG HCO3:16), high Anion gap of 18. Based on winter's formula, expected pCO2 was 32 +/- 2, but actual pCO2 was 22 which is much lower than expected and confirms excessive respiratory alkalosis, not just compensation. Beta-hydroxybutyrate was elevated (5.4) and significant hypokalemia of 2.7. -To summarize, patient likely had HAGMA due to starvation ketoacidosis caused by poor PO intake from prolonged vomiting/diarrhea and excessive respiratory alkalosis likely from hyperventilation from stress or pain from nausea/vomiting/diarrhea. -As of today (03/04), Patient had normal anion gap of 10 and borderline low potassium (3.5), which means patient has NAGMA, which fits classical picture of diarrhea. -However, the root cause of patient's symptoms needs to be further explored, as patient denied previous infections, toxic ingestions, or new abnormal symptoms, and CTAP only showed mass in uterus, which according to OBGYN, unlikely to be the primary cause of her symptom. -CTAP (03/01/2025): No pneumonia pulmonary edema or pleural disease, No bowel obstruction, No hydronephrosis, 33 mm fat-containing mass in the uterus Plan: -Pending Giardia and Norovirus stool antigens testing. -Zofran 4 mg IV every 6 hours as needed -Continue symptomatic treatment. -CTM electrolyte levels. #Uterine mass #Stage I hypertension #Insulin-dependent diabetes #Hyperlipidemia #Hypothyroidism #Rheumatoid arthritis -Management per Primary Hospitalist team Thank you for allowing us to participate in the care of your patient. Assessment and plan discussed with my attending physician Dr. Jomar Ayers (PGY-1)- Internal medicine resident Attending Provider Attestation/Addendum patient currently seen and examined with resident physician Dr. Ayers. Note reviewed, agree with findings and recommendations. Patient currently seen in medical floor. Still having significant loose stools along with nausea and vomiting. Nongap hyperchloremic metabolic acidosis secondary to GI losses. Added Bicitra. Might benefit from GI evaluation to rule out collagenous colitis/microscopic colitis. Stool for ova parasites, cultures pending. spoke to primary team. Thank you Dewayne for allowing me to participate in the care of Ms. Palumbo
[2025-03-04 18:01] LABS: Stool for WBCs None Seen (Negative)
[2025-03-04] MEDS: ATORVASTATIN CALCIUM 20 MG TABLET 10 MG PO (21:24)
--- NOTE | 2025-03-04 21:37 | PD.IMCONS ---
HPI Data of Consult Requesting Physician: Benson Rubin MD Primary Care Provider: Miah Coles MD Consult Narrative Reason for consult: diarrhea, electrolyte abnormalities History of present illness: 60 years old female who has a history of hypertension hypothyroidism rheumatoid arthritis and IDDM presented with nausea vomiting intractable as well as abdominal pain and diarrhea which is loose and watery and yellowish So far the stool culture has been negative Stool C. difficile Giardia antigen Salmonella by PCR norovirus are all pending Patient's vomiting has gotten better and the electrolyte abnormalities are also much better CT scan of the chest abdomen pelvis showed uterine fundic mass which has been confirmed by pelvic ultrasound to be a 3 cm uterine fibroid in the fundus cc:: cc: Benson Rubin MD Review of Systems Review of Systems Systems Reviewed: All systems reviewed, normal except as documented Past Medical History Surgical History OTHER SURGICAL HX: As in the history of present illness Meds Home Medications and Allergies Home Medications ?Medication ?Instructions ?Recorded ?Confirmed ?Type hydrochlorothiazide 25 mg tablet 25 mg PO QAM 03/25/24 03/01/25 History Held on 02/06/25. Instructions: resume with pcp lovastatin 40 mg tablet 40 mg PO QDAY 03/25/24 03/01/25 History etanercept 50 mg/mL (1 mL) 50 mg subcut .Qfriday 02/02/25 03/01/25 History subcutaneous pen injector (Enbrel SureClick) gabapentin 100 mg capsule 200 mg PO Q8H 02/02/25 03/01/25 History levothyroxine 137 mcg tablet 137 mcg PO QAMAC 02/02/25 03/01/25 History metformin 500 mg tablet 500 mg PO BIDWM 02/02/25 03/01/25 History Allergies Allergy/AdvReac Type Severity Reaction Status Date / Time kiwi Allergy Verified 03/01/25 04:00 Exam Vital Signs Temp Pulse Resp BP Pulse Ox O2 Del Method 97.4 F 77 16 117/76 97 Room Air 03/04/25 20:00 03/04/25 20:00 03/04/25 20:00 03/04/25 20:00 03/04/25 20:00 03/04/25 20:00 Constitutional Comments: Chronically ill-appearing Routine Respiratory Exam Comments: Normal to auscultation Routine Abdominal Exam Comments: Soft nontender positive bowel sounds Results Labs 03/05/25 05:26 03/05/25 14:59 Labs: Short CBC 03/04/25 Range/Units 06:39 WBC 5.1 (3.6-11.0) Thou/mm3 Hgb 11.6 L (12.0-16.0) g/dL Hct 34.9 L (36.0-46.0) % Plt Count 271 D (140-440) Thou/mm3 BMP 03/04/25 03/04/25 04:18 14:49 Sodium 146 H 143 Potassium 4.2 D 3.5 D Chloride 117 H 117 H Carbon Dioxide 18.6 L 16.4 L BUN < 5 L < 5 L Creatinine 0.6 0.6 Glucose 98 169 H D Calcium 8.2 L 8.0 L Liver Function 03/04/25 Range/Units 14:49 Albumin 2.5 L (3.4-4.8) gm/dL ABG Interpretation ABG results: 03/01/25 02:05 ABG pH 7.47 H ABG pCO2 22 L ABG pO2 88 ABG HCO3 16 L ABG O2 Saturation 98 ABG Base Excess -6 L Assessment and Plan Additional Assessment & Plan Additional Plan: Chronic persistent diarrhea etiology uncertain No evidence of any colitis on his CT scan imaging done on admission of the abdomen and pelvis Most of the stool studies are pending except culture and sensitivity is negative Suggestions Wait for the results of the stool studies to come back before scheduling invasive GI workup such as colonoscopy with biopsies if the diarrhea still persist Fecal calprotectin ANCA antibody CRP Hold off colonoscopy Will follow the patient Other medical problems include Essential hypertension Hypothyroidism Rheumatoid arthritis IDDM Thank you very much for the opportunity to participate in the care of this patient
[2025-03-05] VITALS (8 sets, daily range): BP systolic 95–109; BP diastolic 50–65; PULSE 69–89; RESP 17–19; TEMP 36.3–37; O2SAT 94–98
[2025-03-05 05:51] LABS: Basophils # (Auto) 0.0 Thou/mm3 (0.0-0.2); Basophils % (Auto) 1 % (0-2.5); Eosinophils # (Auto) 0.4 Thou/mm3 (0.0-0.5); Eosinophils % (Auto) 7 % (0-10); Hematocrit 31.9 % (36.0-46.0); Hemoglobin 10.7 g/dL (12.0-16.0); Immature Granulocytes Auto 0.00 Thou/mm3 (0.00-0.00); Lymphocytes # (Auto) 2.3 Thou/mm3 (1.0-4.8); Lymphocytes % (Auto) 45 % (10-50); Mean Corpuscular HGB Conc 33.5 g/dl (31.0-37.0); Mean Corpuscular Hemoglobin 28.1 pg (25.0-35.0); Mean Corpuscular Volume 84 fL (80-100); Monocytes # (Auto) 0.7 Thou/mm3 (0.0-0.8); Monocytes % (Auto) 15 % (0-12); Neutrophils # (Auto) 1.7 Thou/mm3 (1.8-7.7); Neutrophils % (Auto) 33 % (37-80); Nucleated Red Blood Cell # 0.00 Thou/mm3 (0.00-0.00); Nucleated Red Blood Cell % 0 /100 WBC (0); Platelet Count 266 Thou/mm3 (140-440); RDW Standard Deviation 58.4 fL (36.4-46.3); Red Blood Count 3.81 Miln/mm3 (4.00-5.20); White Blood Count 5.1 Thou/mm3 (3.6-11.0)
[2025-03-05 06:10] LABS: Anion Gap 12 (7-16); BUN/Creatinine Ratio 10 Ratio (12-20); Blood Urea Nitrogen < 5 mg/dL (9-23); C-Reactive Protein 3.6 mg/dL (0.0-0.9); Calcium 8.3 mg/dL (8.3-10.6); Carbon Dioxide 17.5 mMol/L (20.0-31.0); Chloride 117 mMol/L (98-107); Creatinine (Component) 0.5 mg/dL (0.6-1.3); Estimated Creatinine Clearance 129.9 mL/min (>60); Glucose 95 mg/dL (74-106); Magnesium 1.6 mg/dL (1.6-2.6); Osmolality,Calculated 287 (275-295); Phosphorous 3.5 mg/dL (2.4-5.1); Potassium 3.0 mMol/L (3.4-5.1); Sodium 146 mMol/L (136-145); eGFR > 60 See Note
[2025-03-05] MEDS: GABAPENTIN 100 MG CAPSULE 200 MG PO ×3 (06:31→21:59)
[2025-03-05 06:37] LABS: ACTH, Plasma* 8 pg/mL (6-50)
[2025-03-05] MEDS: LACTOBACILLUS RHAMNOSUS 1 CAP PO ×2 (08:33→20:53)
[2025-03-05] MEDS: METOPROLOL SUCCINATE XL 25 MG TABCR PO (08:33)
[2025-03-05] MEDS: MEGESTROL ACET SUSP 400 MG/10 ML UDC 40 MG PO (08:33)
[2025-03-05] MEDS: HYDROcodone/APAP 5/325 TABLET 1 TAB PO ×2 (08:33→21:59)
[2025-03-05] MEDS: HEPARIN SOD INJ 5000 UNIT/ML VIAL SC ×2 (08:34→20:54)
--- NOTE | 2025-03-05 09:15 | PD.RESPRO ---
Documentation for date of: 03/05/25 Subjective Subjective Interval history: History of Present Illness: 60 y/o F with PMHx significant for insulin dependent diabetes, hypertension, hypothyroidism, rheumatoid arthritis presented to the hospital due to 03/01/2025, significant nausea, vomiting, and diarrhea. Patient experienced 2 weeks of persistent nausea and vomiting, followed by onset of profuse watery diarrhea beginning approximately 5 days ago before coming to the hospital. She reports vomiting more than 10 times daily and experiencing continuous diarrhea. Symptoms are associated with generalized weakness and inability to tolerate oral intake. She denies hematemesis or bloody stools. She also denies recent travel or known sick contacts. She endorses chills, but deepa fever. Additionally she notes mild shortness of breath. Denies chest pain, palpation. Patient was admitted for admitted for intractable nausea/vomiting. Nephrology has been consulted for management of metabolic alkalosis. ED Course: -Initial vitals were Temperature 97.6 ?F pulse 102, respiratory rate 16, blood pressure 122/89, 97% oxygen saturation on room air -Labs significant for ABG pH of 7.47, pCO2 22, PaO2 88, HCO3 16; potassium 2.7, anion gap 18, lactic acid 2.3, corrected calcium 7.2, CRP 3.6, beta hydroxybutyrate 5.4, TSH 44.5, free T4.66, free T32.1; urinalysis showed 2+ ketones, urine sodium less than 15, urine potassium 11, urine chloride less than 20; -Imaging included Gallbladder ultrasound, pelvis ultrasound, CT CAP, EKG (no read yet, f/u) Blood cultures x 2 -In the ED, patient was given Sodium chloride IV bolus 1 L Zofran, morphine, potassium chloride oral and liquid (liquid not tolerated), maintenance fluids, diazepam PMH: Hypertension, diabetes, hypothyroidism, rheumatoid arthritis PSH: Cholecystectomy, left cataract surgery, left ankle fracture repair, left knee repair, right shoulder repair x 2 SH: Denies tobacco use. Reports usually drinking 1?2 beers per week in the past. Reports taking 1 CBD gummy daily for back pain. Allergies:?NKDA Medications: amitriptyline, megestrol, promethazine, Levothyroxine, insulin, lovastatin, Enbrel 03/04/2025: Labs reviewed and patient examined at the bedside. On the day of admission (03/01), patient had alkalemia (ABG pH:7.47), Respiratory alkalosis (ABG pCO2:22), Metabolic acidosis (ABG HCO3:16), high Anion gap of 18. Based on winter's formula, expected pCO2 was 32 +/- 2, but actual pCO2 was 22 which is much lower than expected and confirms excessive respiratory alkalosis, not just compensation. Beta-hydroxybutyrate was elevated (5.4) and significant hypokalemia of 2.7. To summarize, patient likely had HAGMA due to starvation ketoacidosis caused by poor PO intake from prolonged vomiting/diarrhea and excessive respiratory alkalosis likely from hyperventilation from stress or pain from nausea/vomiting/diarrhea. As of today (03/04), Patient had normal anion gap of 10 and borderline low potassium (3.5), which means patient has NAGMA, which fits classical picture of diarrhea. However, the root cause of patient's symptoms needs to be further explored, as patient denied previous infections, toxic ingestions, or new abnormal symptoms, and CTAP only showed mass in uterus, which according to OBGYN, unlikely to be the primary cause of her symptom. 03/05/2025:Labs reviewed and patient examined at the bedside. Patient's Nausea and vomiting has improved, but diarrhea still continues. Colonoscopy is recommended for evaulation of diarrhea and possible biopsy. Recommend a dose of bicitra. Exam Vital Signs Temp Pulse Resp BP Pulse Ox O2 Del Method 97.9 F 81 18 109/62 96 Room Air 03/05/25 04:00 03/05/25 08:33 03/05/25 04:00 03/05/25 08:33 03/05/25 04:00 03/05/25 04:00 Narrative Exam General: Stressed, weak, AAO x3 Eye: PERRL, EOMI, normal conjunctiva, no scleral icterus HENT: Normocephalic, atraumatic, hearing intact to conversation at normal volume, moist oral mucosa Neck: Supple, non-tender, no JVD, no lymphadenopathy Lungs: Non-labored respirations, symmetric chest rise, Clear to auscultate bilaterally, No wheezing, rhonchi, crackles Heart: Peripheral pulses intact bilaterally, Regular Rate and Rhythm. Abdomen: Soft, non-tender, non-distended, no palpable masses Musculoskeletal: Normal range of motion and strength, No visible joint swelling, +1 Pitting edema bilaterally Skin: Skin is warm, dry, no rashes or lesions. Psychiatric: Cooperative, appropriate mood and affect, Awake and alert, not agitated Neuro: Cranial nerves II-XII grossly intact. \Sensations intact to light touch. Objective Labs 03/05/25 05:26 03/05/25 14:59 Labs: Laboratory Results - last 24 hr 03/02/25 03/04/25 03/04/25 05:18 04:18 06:39 WBC RBC Hgb Hct MCV MCH MCHC RDW Std Deviation Plt Count Neut % (Auto) Lymph % (Auto) [place] % (Auto) Eos % (Auto) Baso % (Auto) Neut # (Auto) Lymph # (Auto) [place] # (Auto) Eos # (Auto) Baso # (Auto) Immature Gran # (Auto) Absolute Nucleated RBC Immature Gran % Nucleated RBC % Sodium Potassium Chloride Carbon Dioxide Anion Gap BUN Creatinine Estim Creat Clear Calc eGFR BUN/Creatinine Ratio Glucose Calculated Osmolality Calcium Corrected Calcium Phosphorus Magnesium C-Reactive Prot, Quant Albumin CA 125 Antigen 13.0 TSH Cancelled 12.92 H D Free T4 Cancelled 0.98 ACTH 8 Stool for White Cells 03/04/25 03/04/25 03/05/25 14:49 17:00 05:26 WBC 5.1 RBC 3.81 L Hgb 10.7 L Hct 31.9 L MCV 84 MCH 28.1 MCHC 33.5 RDW Std Deviation 58.4 H Plt Count 266 Neut % (Auto) 33 L Lymph % (Auto) 45 [place] % (Auto) 15 H Eos % (Auto) 7 Baso % (Auto) 1 Neut # (Auto) 1.7 L Lymph # (Auto) 2.3 [place] # (Auto) 0.7 Eos # (Auto) 0.4 Baso # (Auto) 0.0 Immature Gran # (Auto) 0.00 Absolute Nucleated RBC 0.00 Immature Gran % 0 Nucleated RBC % 0 Sodium 143 146 H Potassium 3.5 D 3.0 L D Chloride 117 H 117 H Carbon Dioxide 16.4 L 17.5 L Anion Gap 10 12 BUN < 5 L < 5 L Creatinine 0.6 0.5 L Estim Creat Clear Calc 108.3 129.9 eGFR > 60 > 60 BUN/Creatinine Ratio 8 L 10 L Glucose 169 H D 95 D Calculated Osmolality 286 287 Calcium 8.0 L 8.3 Corrected Calcium 9.2 Phosphorus 2.8 3.5 Magnesium 1.6 C-Reactive Prot, Quant 3.6 H Albumin 2.5 L CA 125 Antigen TSH Free T4 ACTH Stool for White Cells None Seen ABG Interpretation ABG results: 03/01/25 02:05 ABG pH 7.47 H ABG pCO2 22 L ABG pO2 88 ABG HCO3 16 L ABG O2 Saturation 98 ABG Base Excess -6 L Quality Measures Quality Measures VTE prophylaxis Assessment & Plan Assessment Current Active Medications: Generic Name Dose Route Start Last Admin Trade Name Freq PRN Reason Stop Dose Admin Hydrocodone Bitart/Acetaminophen 1 tab 03/02/25 09:11 03/05/25 08:33 Hydrocodone/Apap 5/325 Tablet PO 03/07/25 09:10 1 tab Q6HR PRN Administration PAIN SCALE 4-10(Mod-Sev Atorvastatin Calcium 10 mg 03/01/25 21:00 03/04/25 21:24 Atorvastatin Calcium 20 Mg Tablet PO 03/31/25 20:59 10 mg HS MEGAN Administration Dextrose 50 ml 03/01/25 06:29 Dextrose 50%-Water Inj 50 Ml Syringe IV 03/31/25 06:28 Q15MIN PRN BG <50 OR BG <70 & pt unresponsive Gabapentin 200 mg 03/01/25 14:00 03/05/25 06:31 Gabapentin 100 Mg Capsule PO 03/31/25 13:59 200 mg TID MEGAN Administration Glucagon 1 mg 03/01/25 06:29 Glucagon Inj 1 Mg Vial IM Q15MIN PRN BG <70, and no IV access Heparin Sodium (Porcine) 5,000 unit 03/01/25 09:00 03/05/25 08:34 Heparin Sod Inj 5000 Unit/Ml Vial SC 03/15/25 08:59 5,000 unit BID MEGAN Administration Potassium Chloride 10 meq in 100 mls @ 100 mls/hr 03/05/25 08:31 Kcl Ivpb IV 03/05/25 12:30 Q1H MEGAN Magnesium Sulfate 4 gm in 50 mls @ 12.5 mls/hr 03/05/25 08:31 Magnesium Sulfate Ivpb IV 03/05/25 12:30 X1 ONE Insulin Human Lispro 0 unit 03/03/25 17:00 03/05/25 07:35 Insulin Lispro (Admelog) 1 Unit/0.01 Ml Unit SC 04/02/25 16:59 Not Given ACHS MEGAN Protocol Lactobacillus Rhamnosus 1 cap 03/04/25 12:00 03/05/25 08:33 Lactobacillus Rhamnosus 1 Cap PO 04/03/25 11:59 1 cap BID MEGAN Administration Levothyroxine Sodium 112 mcg/ 137 mcg 03/05/25 06:00 03/05/25 06:31 Levothyroxine Sodium 25 mcg PO 04/04/25 05:59 137 mcg ACBR MEGAN Administration Megestrol Acetate 40 mg 03/01/25 10:00 03/05/25 08:33 Megestrol Acet Susp 400 Mg/10 Ml Udc PO 03/31/25 09:59 40 mg QDAY MEGAN Administration Metoprolol Succinate 25 mg 03/02/25 11:45 03/05/25 08:33 Metoprolol Succinate Xl 25 Mg Tabcr PO 04/01/25 11:44 25 mg QDAY MEGAN Administration Promethazine HCl 12.5 mg 03/01/25 06:31 Promethazine Hcl 25 Mg Tablet PO 03/31/25 06:30 Q6H PRN nausea and vomiting Protocol Plan 60 y/o F with PMHx significant for insulin dependent diabetes, hypertension, hypothyroidism, rheumatoid arthritis presented to the hospital due to 03/01/2025, significant nausea, vomiting, and diarrhea. Patient was admitted for admitted for intractable nausea/vomiting. Nephrology has been consulted for management of metabolic alkalosis. #Intractable Nausea/Vomiting/Diarrhea #Normal Anion Gap Metabolic Acidosis (NAGMA) #High Anion Gap Metabolic Acidosis (HAGMA) - Resolved #Respiratory Alkalosis #Electrolyte abnormality -On the day of admission (03/01), patient had alkalemia (ABG pH:7.47), Respiratory alkalosis (ABG pCO2:22), Metabolic acidosis (ABG HCO3:16), high Anion gap of 18. Based on winter's formula, expected pCO2 was 32 +/- 2, but actual pCO2 was 22 which is much lower than expected and confirms excessive respiratory alkalosis, not just compensation. Beta-hydroxybutyrate was elevated (5.4) and significant hypokalemia of 2.7. -To summarize, patient likely had HAGMA due to starvation ketoacidosis caused by poor PO intake from prolonged vomiting/diarrhea and excessive respiratory alkalosis likely from hyperventilation from stress or pain from nausea/vomiting/diarrhea. -As of today (03/04), Patient had normal anion gap of 10 and borderline low potassium (3.5), which means patient has NAGMA, which fits classical picture of diarrhea. -However, the root cause of patient's symptoms needs to be further explored, as patient denied previous infections, toxic ingestions, or new abnormal symptoms, and CTAP only showed mass in uterus, which according to OBGYN, unlikely to be the primary cause of her symptom. -CTAP (03/01/2025): No pneumonia pulmonary edema or pleural disease, No bowel obstruction, No hydronephrosis, 33 mm fat-containing mass in the uterus Plan: -Pending Giardia and Norovirus stool antigens testing. -Zofran 4 mg IV every 6 hours as needed -Continue symptomatic treatment. -CTM electrolyte levels. -Colonoscopy for biopsy recommended -Recommend a dose of bicitra. #Uterine mass #Stage I hypertension #Insulin-dependent diabetes #Hyperlipidemia #Hypothyroidism #Rheumatoid arthritis -Management per Primary Hospitalist team Thank you for allowing us to participate in the care of your patient. Assessment and plan discussed with my attending physician Dr. Jomar Ayers (PGY-1)- Internal medicine resident Attending Provider Attestation/Addendum patient currently seen and examined with resident physician Dr. Ayers. Note reviewed, agree with findings and recommendations. Patient currently seen in medical floor. Still having significant loose stools along with nausea and vomiting. Nongap hyperchloremic metabolic acidosis secondary to GI losses. Added Bicitra. Might benefit from GI evaluation to rule out collagenous colitis/microscopic colitis. Stool for ova parasites, cultures pending. spoke to primary team. Thank you Dewayne for allowing me to participate in the care of Ms. Palumbo
[2025-03-05] MEDS: Magnesium Sulfate 4 GM Ivpb 4 GM/50 ML BAG IV (09:29)
[2025-03-05] MEDS: POTASSIUM CHL 10 mEq IVPB 10 MEQ/100 ML BAG 100 MEQ IV ×4 (09:30→13:02)
--- NOTE | 2025-03-05 13:00 | ESPR_ITS ---
<Statement entered by Jose Moore MD - 03/05/25 20:33> Note reviewed and agree with care plan as documented. Please refer to the note below for further details. Plan discussed with attending physician Dr. Manny Moore MD PGY-2 Internal Medicine Documentation for date of: 03/05/25 Subjective Subjective Interval history: No acute overnight events. Patient seen and examined at bedside. Patient had 3 loose stools in the morning. ADIN positive, hemoglobin 10.7 down from 11.6, sodium 146, potassium 3, chloride 117, carbon oxide 17.5.? CRP 3.6.? Stool culture pending.? Albumin 2.5, will encourage oral intake.? No new imaging, vitals reviewed and are stable.?GI consulted yesterday and want to wait for stool cultures before scheduling invasive GI workup. Exam Vital Signs Temp Pulse Resp BP Pulse Ox O2 Del Method 98.5 F 77 17 109/62 94 L Room Air 03/05/25 08:00 03/05/25 12:00 03/05/25 08:00 03/05/25 08:33 03/05/25 08:00 03/05/25 08:00 Narrative Exam General: Awake and in no acute distress. Conversational and non-toxic appearing. Neurologic: GCS 15. Alert and oriented x3, no gross neurological deficit, and patient able to move all 4 extremities. HEENT: Normocephalic, atraumatic, mucous membranes moist. Pupils reactive to light. Heart: Regular rate and rhythm, normal S1 and S2, no murmurs. Lungs: Clear to auscultation bilaterally with no wheezing or crackles. Abdomen: Pain on deep palpation of the right lower quadrant. Extremities: No edema. 2+ radial and dorsalis pedis pulses bilaterally. Skin: Warm. Dry. No rash or ecchymoses. Objective Labs 03/05/25 05:26 03/05/25 14:59 Labs: Laboratory Results - last 24 hr 03/02/25 03/04/25 03/04/25 05:18 06:39 14:49 WBC RBC Hgb Hct MCV MCH MCHC RDW Std Deviation Plt Count Neut % (Auto) Lymph % (Auto) [place] % (Auto) Eos % (Auto) Baso % (Auto) Neut # (Auto) Lymph # (Auto) [place] # (Auto) Eos # (Auto) Baso # (Auto) Immature Gran # (Auto) Absolute Nucleated RBC Immature Gran % Nucleated RBC % Sodium 143 Potassium 3.5 D Chloride 117 H Carbon Dioxide 16.4 L Anion Gap 10 BUN < 5 L Creatinine 0.6 Estim Creat Clear Calc 108.3 eGFR > 60 BUN/Creatinine Ratio 8 L Glucose 169 H D Calculated Osmolality 286 Calcium 8.0 L Corrected Calcium 9.2 Phosphorus 2.8 Magnesium C-Reactive Prot, Quant Albumin 2.5 L TSH 12.92 H D Free T4 0.98 ACTH 8 Stool for White Cells 03/04/25 03/05/25 17:00 05:26 WBC 5.1 RBC 3.81 L Hgb 10.7 L Hct 31.9 L MCV 84 MCH 28.1 MCHC 33.5 RDW Std Deviation 58.4 H Plt Count 266 Neut % (Auto) 33 L Lymph % (Auto) 45 [place] % (Auto) 15 H Eos % (Auto) 7 Baso % (Auto) 1 Neut # (Auto) 1.7 L Lymph # (Auto) 2.3 [place] # (Auto) 0.7 Eos # (Auto) 0.4 Baso # (Auto) 0.0 Immature Gran # (Auto) 0.00 Absolute Nucleated RBC 0.00 Immature Gran % 0 Nucleated RBC % 0 Sodium 146 H Potassium 3.0 L D Chloride 117 H Carbon Dioxide 17.5 L Anion Gap 12 BUN < 5 L Creatinine 0.5 L Estim Creat Clear Calc 129.9 eGFR > 60 BUN/Creatinine Ratio 10 L Glucose 95 D Calculated Osmolality 287 Calcium 8.3 Corrected Calcium Phosphorus 3.5 Magnesium 1.6 C-Reactive Prot, Quant 3.6 H Albumin TSH Free T4 ACTH Stool for White Cells None Seen ABG Interpretation ABG results: 03/01/25 02:05 ABG pH 7.47 H ABG pCO2 22 L ABG pO2 88 ABG HCO3 16 L ABG O2 Saturation 98 ABG Base Excess -6 L Quality Measures Quality Measures VTE prophylaxis Assessment & Plan Assessment Current Active Medications: Generic Name Dose Route Start Last Admin Trade Name Freq PRN Reason Stop Dose Admin Hydrocodone Bitart/Acetaminophen 1 tab 03/02/25 09:11 03/05/25 08:33 Hydrocodone/Apap 5/325 Tablet PO 03/07/25 09:10 1 tab Q6HR PRN Administration PAIN SCALE 4-10(Mod-Sev Atorvastatin Calcium 10 mg 03/01/25 21:00 03/04/25 21:24 Atorvastatin Calcium 20 Mg Tablet PO 03/31/25 20:59 10 mg HS MEGAN Administration Dextrose 50 ml 03/01/25 06:29 Dextrose 50%-Water Inj 50 Ml Syringe IV 03/31/25 06:28 Q15MIN PRN BG <50 OR BG <70 & pt unresponsive Gabapentin 200 mg 03/01/25 14:00 03/05/25 06:31 Gabapentin 100 Mg Capsule PO 03/31/25 13:59 200 mg TID MEGAN Administration Glucagon 1 mg 03/01/25 06:29 Glucagon Inj 1 Mg Vial IM Q15MIN PRN BG <70, and no IV access Heparin Sodium (Porcine) 5,000 unit 03/01/25 09:00 03/05/25 08:34 Heparin Sod Inj 5000 Unit/Ml Vial SC 03/15/25 08:59 5,000 unit BID MEGAN Administration Insulin Human Lispro 0 unit 03/03/25 17:00 03/05/25 11:54 Insulin Lispro (Admelog) 1 Unit/0.01 Ml Unit SC 04/02/25 16:59 Not Given ACHS MEGAN Protocol Lactobacillus Rhamnosus 1 cap 03/04/25 12:00 03/05/25 08:33 Lactobacillus Rhamnosus 1 Cap PO 04/03/25 11:59 1 cap BID MEGAN Administration Levothyroxine Sodium 112 mcg/ 137 mcg 03/05/25 06:00 03/05/25 06:31 Levothyroxine Sodium 25 mcg PO 04/04/25 05:59 137 mcg ACBR MEGAN Administration Megestrol Acetate 40 mg 03/01/25 10:00 03/05/25 08:33 Megestrol Acet Susp 400 Mg/10 Ml Udc PO 03/31/25 09:59 40 mg QDAY MEGAN Administration Metoprolol Succinate 25 mg 03/02/25 11:45 03/05/25 08:33 Metoprolol Succinate Xl 25 Mg Tabcr PO 04/01/25 11:44 25 mg QDAY MEGAN Administration Promethazine HCl 12.5 mg 03/01/25 06:31 Promethazine Hcl 25 Mg Tablet PO 03/31/25 06:30 Q6H PRN nausea and vomiting Protocol Plan Summary: Arlene Palumbo is a 60 y/o F with PMHx significant for insulin dependent diabetes, hypertension, hypothyroidism, rheumatoid arthritis presents with chief complaint of intractable nausea/vomiting x 2.5 weeks. She was admitted for intractable nausea/vomiting. #Intractable nausea/vomiting, resolved #Diarrhea Patient reports intractable nausea and vomiting for the past 2.5 weeks on arrival, endorses ~ 10 vomiting episodes per day, some food particles present, non-bloody. No signs of hematemesis. Patient is also had poor p.o. intake during this time, only able to tolerate minimal fluids. Consider gastroparesis versus hypothyroid versus endocrine tumor. EKG showed T waves roughly chcf between QRS complexes, concern for long QT syndrome in the presence of amitriptyline and Zofran use. Clinical suspicion has shifted towards colonic infection versus autoimmune in the presence of a positive ADIN test. Plan: - Stool Campylobacter negative, stool E. coli sugar toxin negative, stool Salmonella negative, stool Shigella negative - Pending Giardia and Norovirus stool antigens testing. - Lacticaseibacillus rhamnosus PO 1cap bid - Zofran 4 mg IV every 6 hours as needed - GI consulted, appreciate recs - Cutter Operator Helper consulted, appreciate recs - Nephrology consulted, appreciate recs - Endocrinology consulted, appreciate recs - ACTH negative - AFP negative - Beta-hCG negative - Hold home amitriptyline #Uterine mass There was a 6 x 6.2 x 6.4 centimeter hyperechoic mass with an avascular region on pelvic ultrasound on 05/06/2024. There was a hyperechoic 4.1 x 3.9 x 2.4 cm uterine mass on pelvic ultrasound on 03/01/2025 Transvaginal ultrasound on 03/03/2025 showed a benign mass in the uterine fundus measuring 2.7 x 2.1 x 3.0 cm. OB does not believe that the patient's uterine mass is the cause of her current symptoms given the reduction in size and the location. OB recommends follow-up with dental chairside assistant outpatient and additional tumor markers: GILBERTO panel, CEA, CA 125, CA 19-9. Plan: - Follow-up outpatient MATERIALS PLANNING ANALYST #Mixed Acid Base Disorder #Hypercalcemia (Resolved) #Hypokalemia #Hypomagnesemia #Hypophosphatemia Mixed Metabolic Alkalosis and Metabolic acidosis (vomiting/diarrhea (diuretic use) with starvation ketoacidosis) Patient presented with serum bicarb 19.4, anion gap 18. ABG pH of 7.47, pCO2 22, PaO2 88, HCO3 16. Glucose 107. Suspect starvation ketosis in the setting of poor p.o. intake x 2.5 weeks due to intractable nausea/vomiting. Patient presented with corrected calcium 10.2. Received 1 L bolus normal saline in the ED. Patient has had electrolyte derangements in the presence of vomiting and diarrhea Plan: - Nephrology consulted, appreciate recs - Treat nausea/vomiting as above - Monitor and replete electrolytes as needed #Stage I hypertension Blood pressure 140/85 Plan: - Metoprolol succinate 25 mg p.o. daily #Insulin-dependent diabetes Patient with history of diabetes, takes insulin as needed. Does not take any other diabetic medications. A1c 5.3% 03/01/2025, glucose 107 on admission. Has been controlled since admission. Plan: - Continue insulin sliding scale #Hyperlipidemia Patient takes lovastatin 40 mg daily Plan: - Hold in the presence of nausea vomiting #Hypothyroidism 137 mcg po home meds levothyroxine q day 03/04: TSH 12.92 (H) and T4 0.98 WNL Plan: - PO 137 mcg QAM levothyroxine #Rheumatoid arthritis Patient history as stated. Med rec's pending. Plan: - Resume home meds when appropriate Hospital Management: Disposition: Med Tele, advancing diet as tolerated, pending stool cultures and stool viral panel, nephro and GI recs. Diet: regular GI Prophylaxis: Protonix 40 mg IV qd Bowel Prophylaxis: n/a DVT Prophylaxis: Heparin CODE STATUS: Full Code Patient was seen and discussed with my attending physician Dr. Bryant and my senior resident Dr. Teresa WHEATLEY PGY-2. Amos Mariano DO PGY-1. Attending Provider Attestation/Addendum I attest that I was physically present for the evaluation, physical examination, lab and imaging review of the patient with the residents. I discussed the case with the residents and agree with the findings and plans of care as documented above. Dewayne Bryant MD
[2025-03-05 14:42] LABS: Campylobacter PCR Negative (Negative); Salmonella Species PCR Negative (Negative); Shiga Toxin PCR Negative (Negative); Shigella Species PCR Negative (Negative)
[2025-03-05 15:34] LABS: Albumin, Serum 2.6 gm/dL (3.4-4.8); Anion Gap 10 (7-16); BUN/Creatinine Ratio 8 Ratio (12-20); Blood Urea Nitrogen < 5 mg/dL (9-23); Calcium 7.8 mg/dL (8.3-10.6); Calcium (Corrected) 8.9 mg/dL (8.5-10.1); Carbon Dioxide 16.6 mMol/L (20.0-31.0); Chloride 115 mMol/L (98-107); Creatinine (Component) 0.6 mg/dL (0.6-1.3); Estimated Creatinine Clearance 108.3 mL/min (>60); Glucose 168 mg/dL (74-106); Osmolality,Calculated 284 (275-295); Phosphorous 2.8 mg/dL (2.4-5.1); Potassium 3.4 mMol/L (3.4-5.1); Sodium 142 mMol/L (136-145); eGFR > 60 See Note
[2025-03-05] MEDS: FUROSEMIDE INJ 10 MG/ML 4ML VIAL 40 MG IVP (16:59)
[2025-03-05] MEDS: ATORVASTATIN CALCIUM 20 MG TABLET 10 MG PO (20:53)
--- NOTE | 2025-03-05 21:44 | ESPR_ITS ---
Documentation for date of: 03/05/25 Subjective Subjective Interval history: Stool norovirus and Giardia antigen still pending Shigella and Salmonella negative Exam Vital Signs Temp Pulse Resp BP Pulse Ox O2 Del Method 97.5 F 75 17 108/64 98 Nasal Cannula 03/05/25 20:00 03/05/25 20:00 03/05/25 20:00 03/05/25 20:00 03/05/25 20:00 03/05/25 20:00 Objective Labs 03/05/25 05:26 03/05/25 14:59 Labs: Laboratory Results - last 24 hr 03/02/25 03/04/25 03/05/25 05:18 17:20 05:26 WBC 5.1 RBC 3.81 L Hgb 10.7 L Hct 31.9 L MCV 84 MCH 28.1 MCHC 33.5 RDW Std Deviation 58.4 H Plt Count 266 Neut % (Auto) 33 L Lymph % (Auto) 45 [place] % (Auto) 15 H Eos % (Auto) 7 Baso % (Auto) 1 Neut # (Auto) 1.7 L Lymph # (Auto) 2.3 [place] # (Auto) 0.7 Eos # (Auto) 0.4 Baso # (Auto) 0.0 Immature Gran # (Auto) 0.00 Absolute Nucleated RBC 0.00 Immature Gran % 0 Nucleated RBC % 0 Sodium 146 H Potassium 3.0 L D Chloride 117 H Carbon Dioxide 17.5 L Anion Gap 12 BUN < 5 L Creatinine 0.5 L Estim Creat Clear Calc 129.9 eGFR > 60 BUN/Creatinine Ratio 10 L Glucose 95 D Calculated Osmolality 287 Calcium 8.3 Corrected Calcium Phosphorus 3.5 Magnesium 1.6 C-Reactive Prot, Quant 3.6 H Albumin ACTH 8 Stool Campylobacter PCR Negative Stl E.coli Shiga Tox PCR Negative Stool Salmonella PCR Negative Stool Shigella PCR Negative 03/05/25 14:59 WBC RBC Hgb Hct MCV MCH MCHC RDW Std Deviation Plt Count Neut % (Auto) Lymph % (Auto) [place] % (Auto) Eos % (Auto) Baso % (Auto) Neut # (Auto) Lymph # (Auto) [place] # (Auto) Eos # (Auto) Baso # (Auto) Immature Gran # (Auto) Absolute Nucleated RBC Immature Gran % Nucleated RBC % Sodium 142 Potassium 3.4 Chloride 115 H Carbon Dioxide 16.6 L Anion Gap 10 BUN < 5 L Creatinine 0.6 Estim Creat Clear Calc 108.3 eGFR > 60 BUN/Creatinine Ratio 8 L Glucose 168 H D Calculated Osmolality 284 Calcium 7.8 L Corrected Calcium 8.9 Phosphorus 2.8 Magnesium C-Reactive Prot, Quant Albumin 2.6 L ACTH Stool Campylobacter PCR Stl E.coli Shiga Tox PCR Stool Salmonella PCR Stool Shigella PCR Impressions Impression: Infectious enterocolitis most likely Wait for the stool samples to come back if negative and the diarrhea persist we will consider doing a colonoscopy ABG Interpretation ABG results: 03/01/25 02:05 ABG pH 7.47 H ABG pCO2 22 L ABG pO2 88 ABG HCO3 16 L ABG O2 Saturation 98 ABG Base Excess -6 L Assessment & Plan A&P Narrative Chronic persistent diarrhea etiology uncertain No evidence of any colitis on his CT scan imaging done on admission of the abdomen and pelvis Most of the stool studies are pending except culture and sensitivity is negative Suggestions Wait for the results of the stool studies to come back before scheduling invasive GI workup such as colonoscopy with biopsies if the diarrhea still persist Fecal calprotectin ANCA antibody CRP Hold off colonoscopy Will follow the patient Other medical problems include Essential hypertension Hypothyroidism Rheumatoid arthritis IDDM Thank you very much for the opportunity to participate in the care of this patient Time Spent With Patient Time: Total time spent is greater than 50% in coordination of care (as documented) at patient's floor/unit and/or counseling patient:
[2025-03-06] VITALS (10 sets, daily range): BP systolic 105–129; BP diastolic 56–78; PULSE 75–86; RESP 16–19; TEMP 36.1–36.6; O2SAT 92–97; BMI 33.0
[2025-03-06] MEDS: GABAPENTIN 100 MG CAPSULE 200 MG PO ×3 (05:19→21:06)
[2025-03-06 05:54] LABS: Basophils # (Auto) 0.1 Thou/mm3 (0.0-0.2); Basophils % (Auto) 1 % (0-2.5); Eosinophils # (Auto) 0.4 Thou/mm3 (0.0-0.5); Eosinophils % (Auto) 7 % (0-10); Hematocrit 30.5 % (36.0-46.0); Hemoglobin 10.2 g/dL (12.0-16.0); Immature Granulocytes Auto 0.01 Thou/mm3 (0.00-0.00); Lymphocytes # (Auto) 2.3 Thou/mm3 (1.0-4.8); Lymphocytes % (Auto) 43 % (10-50); Mean Corpuscular HGB Conc 33.4 g/dl (31.0-37.0); Mean Corpuscular Hemoglobin 28.0 pg (25.0-35.0); Mean Corpuscular Volume 84 fL (80-100); Monocytes # (Auto) 0.9 Thou/mm3 (0.0-0.8); Monocytes % (Auto) 16 % (0-12); Neutrophils # (Auto) 1.8 Thou/mm3 (1.8-7.7); Neutrophils % (Auto) 32 % (37-80); Nucleated Red Blood Cell # 0.00 Thou/mm3 (0.00-0.00); Nucleated Red Blood Cell % 0 /100 WBC (0); Platelet Count 252 Thou/mm3 (140-440); RDW Standard Deviation 57.2 fL (36.4-46.3); Red Blood Count 3.64 Miln/mm3 (4.00-5.20); White Blood Count 5.4 Thou/mm3 (3.6-11.0)
[2025-03-06 06:09] LABS: Albumin, Serum 2.5 gm/dL (3.4-4.8); Anion Gap 11 (7-16); BUN/Creatinine Ratio 13 Ratio (12-20); Blood Urea Nitrogen < 5 mg/dL (9-23); Calcium 7.8 mg/dL (8.3-10.6); Calcium (Corrected) 9.0 mg/dL (8.5-10.1); Carbon Dioxide 19.4 mMol/L (20.0-31.0); Chloride 114 mMol/L (98-107); Creatinine (Component) 0.4 mg/dL (0.6-1.3); Estimated Creatinine Clearance 162.4 mL/min (>60); Glucose 90 mg/dL (74-106); Magnesium 1.7 mg/dL (1.6-2.6); Osmolality,Calculated 284 (275-295); Phosphorous 3.5 mg/dL (2.4-5.1); Potassium 3.3 mMol/L (3.4-5.1); Sodium 144 mMol/L (136-145); eGFR > 60 See Note
[2025-03-06] MEDS: METOPROLOL SUCCINATE XL 25 MG TABCR PO (08:33)
[2025-03-06] MEDS: HEPARIN SOD INJ 5000 UNIT/ML VIAL SC ×2 (08:34→20:55)
[2025-03-06] MEDS: Magnesium Sulfate 4 GM Ivpb 4 GM/50 ML BAG IV (08:34)
[2025-03-06] MEDS: MEGESTROL ACET SUSP 400 MG/10 ML UDC 40 MG PO (08:34)
[2025-03-06] MEDS: CITRIC ACID/SODIUM CITR 15 ML UDC (BICITRA) 30 ML PO ×2 (08:34→20:55)
[2025-03-06] MEDS: LACTOBACILLUS RHAMNOSUS 1 CAP PO ×2 (08:34→20:55)
--- NOTE | 2025-03-06 10:41 | ESPR_ITS ---
Documentation for date of: 03/06/25 Subjective Subjective Interval history: 60 y/o F with PMHx significant for insulin dependent diabetes, hypertension, hypothyroidism, rheumatoid arthritis presented to the hospital due to 03/01/2025, significant nausea, vomiting, and diarrhea. Patient experienced 2 weeks of persistent nausea and vomiting, followed by onset of profuse watery diarrhea beginning approximately 5 days ago before coming to the hospital. She reports vomiting more than 10 times daily and experiencing continuous diarrhea. Symptoms are associated with generalized weakness and inability to tolerate oral intake. She denies hematemesis or bloody stools. She also denies recent travel or known sick contacts. She endorses chills, but deepa fever. Additionally she notes mild shortness of breath. Denies chest pain, palpation. Patient was admitted for admitted for intractable nausea/vomiting. Nephrology has been consulted for management of metabolic alkalosis. ED Course: -Initial vitals were Temperature 97.6 ?F pulse 102, respiratory rate 16, blood pressure 122/89, 97% oxygen saturation on room air -Labs significant for ABG pH of 7.47, pCO2 22, PaO2 88, HCO3 16; potassium 2.7, anion gap 18, lactic acid 2.3, corrected calcium 7.2, CRP 3.6, beta hydroxybutyrate 5.4, TSH 44.5, free T4.66, free T32.1; urinalysis showed 2+ ketones, urine sodium less than 15, urine potassium 11, urine chloride less than 20; -Imaging included Gallbladder ultrasound, pelvis ultrasound, CT CAP, EKG (no read yet, f/u) Blood cultures x 2 -In the ED, patient was given Sodium chloride IV bolus 1 L Zofran, morphine, potassium chloride oral and liquid (liquid not tolerated), maintenance fluids, diazepam PMH: Hypertension, diabetes, hypothyroidism, rheumatoid arthritis PSH: Cholecystectomy, left cataract surgery, left ankle fracture repair, left knee repair, right shoulder repair x 2 SH: Denies tobacco use. Reports usually drinking 1?2 beers per week in the past. Reports taking 1 CBD gummy daily for back pain. Allergies:?NKDA Medications: amitriptyline, megestrol, promethazine, Levothyroxine, insulin, lovastatin, Enbrel 03/04/2025: Labs reviewed and patient examined at the bedside. On the day of admission (03/01), patient had alkalemia (ABG pH:7.47), Respiratory alkalosis (ABG pCO2:22), Metabolic acidosis (ABG HCO3:16), high Anion gap of 18. Based on winter's formula, expected pCO2 was 32 +/- 2, but actual pCO2 was 22 which is much lower than expected and confirms excessive respiratory alkalosis, not just compensation. Beta-hydroxybutyrate was elevated (5.4) and significant hypokalemia of 2.7. To summarize, patient likely had HAGMA due to starvation ketoacidosis caused by poor PO intake from prolonged vomiting/diarrhea and excessive respiratory alkalosis likely from hyperventilation from stress or pain from nausea/vomiting/diarrhea. As of today (03/04), Patient had normal anion gap of 10 and borderline low potassium (3.5), which means patient has NAGMA, which fits classical picture of diarrhea. However, the root cause of patient's symptoms needs to be further explored, as patient denied previous infections, toxic ingestions, or new abnormal symptoms, and CTAP only showed mass in uterus, which according to OBGYN, unlikely to be the primary cause of her symptom. 03/05/2025:Labs reviewed and patient examined at the bedside. Patient's Nausea and vomiting has improved, but diarrhea still continues. Colonoscopy is recommended for evaulation of diarrhea and possible biopsy. Recommend a dose of bicitra. 03/06/2025: Labs reviewed and patient examined at the bedside. Patient has ongoing fluctance of nausea, vomiting, and diarrhea. Patient noted her diarrhea is not improving. Colonoscopy has been delayed because stool culture needs to return first. Still exploring possible causes of her diarrhea. HCO3: 19.4. Recommend a dose of bicitra. Exam Vital Signs Temp Pulse Resp BP Pulse Ox O2 Del Method O2 Flow Rate 97.5 F 80 19 113/78 96 Nasal Cannula 2 03/06/25 08:00 03/06/25 09:39 03/06/25 08:00 03/06/25 08:33 03/06/25 08:00 03/06/25 08:00 03/06/25 08:00 Narrative Exam General: Stressed, weak, AAO x3 Eye: PERRL, EOMI, normal conjunctiva, no scleral icterus HENT: Normocephalic, atraumatic, hearing intact to conversation at normal volume, moist oral mucosa Neck: Supple, non-tender, no JVD, no lymphadenopathy Lungs: Non-labored respirations, symmetric chest rise, Clear to auscultate bilaterally, No wheezing, rhonchi, crackles Heart: Peripheral pulses intact bilaterally, Regular Rate and Rhythm. Abdomen: Soft, non-tender, non-distended, no palpable masses Musculoskeletal: Normal range of motion and strength, No visible joint swelling, +1 Pitting edema bilaterally Skin: Skin is warm, dry, no rashes or lesions. Psychiatric: Cooperative, appropriate mood and affect, Awake and alert, not agitated Neuro: Cranial nerves II-XII grossly intact. \Sensations intact to light touch. Objective Labs 03/06/25 05:19 03/06/25 05:19 Labs: Laboratory Results - last 24 hr 03/04/25 03/05/25 03/06/25 17:20 14:59 05:19 WBC 5.4 RBC 3.64 L Hgb 10.2 L Hct 30.5 L MCV 84 MCH 28.0 MCHC 33.4 RDW Std Deviation 57.2 H Plt Count 252 Neut % (Auto) 32 L Lymph % (Auto) 43 [place] % (Auto) 16 H Eos % (Auto) 7 Baso % (Auto) 1 Neut # (Auto) 1.8 Lymph # (Auto) 2.3 [place] # (Auto) 0.9 H Eos # (Auto) 0.4 Baso # (Auto) 0.1 Immature Gran # (Auto) 0.01 H Absolute Nucleated RBC 0.00 Immature Gran % 0 Nucleated RBC % 0 Sodium 142 144 Potassium 3.4 3.3 L Chloride 115 H 114 H Carbon Dioxide 16.6 L 19.4 L Anion Gap 10 11 BUN < 5 L < 5 L Creatinine 0.6 0.4 L Estim Creat Clear Calc 108.3 162.4 eGFR > 60 > 60 BUN/Creatinine Ratio 8 L 13 Glucose 168 H D 90 D Calculated Osmolality 284 284 Calcium 7.8 L 7.8 L Corrected Calcium 8.9 9.0 Phosphorus 2.8 3.5 Magnesium 1.7 Albumin 2.6 L 2.5 L Stool Campylobacter PCR Negative Stl E.coli Shiga Tox PCR Negative Stool Salmonella PCR Negative Stool Shigella PCR Negative ABG Interpretation ABG results: 03/01/25 02:05 ABG pH 7.47 H ABG pCO2 22 L ABG pO2 88 ABG HCO3 16 L ABG O2 Saturation 98 ABG Base Excess -6 L Quality Measures Quality Measures VTE prophylaxis Assessment & Plan Assessment Current Active Medications: Generic Name Dose Route Start Last Admin Trade Name Freq PRN Reason Stop Dose Admin Hydrocodone Bitart/Acetaminophen 1 tab 03/02/25 09:11 03/05/25 21:59 Hydrocodone/Apap 5/325 Tablet PO 03/07/25 09:10 1 tab Q6HR PRN Administration PAIN SCALE 4-10(Mod-Sev Atorvastatin Calcium 10 mg 03/01/25 21:00 03/05/25 20:53 Atorvastatin Calcium 20 Mg Tablet PO 03/31/25 20:59 10 mg HS MEGAN Administration Citric Acid/Sodium Citrate 30 ml 03/06/25 09:00 03/06/25 08:34 Citric Acid/Sodium Citr 15 Ml Udc (Bicitra) PO 04/05/25 08:59 30 ml BID MEGAN Administration Dextrose 50 ml 03/01/25 06:29 Dextrose 50%-Water Inj 50 Ml Syringe IV 03/31/25 06:28 Q15MIN PRN BG <50 OR BG <70 & pt unresponsive Gabapentin 200 mg 03/01/25 14:00 03/06/25 05:19 Gabapentin 100 Mg Capsule PO 03/31/25 13:59 200 mg TID MEGAN Administration Glucagon 1 mg 03/01/25 06:29 Glucagon Inj 1 Mg Vial IM Q15MIN PRN BG <70, and no IV access Heparin Sodium (Porcine) 5,000 unit 03/01/25 09:00 03/06/25 08:34 Heparin Sod Inj 5000 Unit/Ml Vial SC 03/15/25 08:59 5,000 unit BID MEGAN Administration Magnesium Sulfate 4 gm in 50 mls @ 12.5 mls/hr 03/06/25 07:46 03/06/25 08:34 Magnesium Sulfate Ivpb IV 03/06/25 11:45 12.5 mls/hr X1 ONE Administration Insulin Human Lispro 0 unit 03/03/25 17:00 03/06/25 08:33 Insulin Lispro (Admelog) 1 Unit/0.01 Ml Unit SC 04/02/25 16:59 Not Given ACHS MEGAN Protocol Lactobacillus Rhamnosus 1 cap 03/04/25 12:00 03/06/25 08:34 Lactobacillus Rhamnosus 1 Cap PO 04/03/25 11:59 1 cap BID MEGAN Administration Levothyroxine Sodium 112 mcg/ 137 mcg 03/05/25 06:00 03/06/25 05:19 Levothyroxine Sodium 25 mcg PO 04/04/25 05:59 137 mcg ACBR MEGAN Administration Megestrol Acetate 40 mg 03/01/25 10:00 03/06/25 08:34 Megestrol Acet Susp 400 Mg/10 Ml Udc PO 03/31/25 09:59 40 mg QDAY MEGAN Administration Metoprolol Succinate 25 mg 03/02/25 11:45 03/06/25 08:33 Metoprolol Succinate Xl 25 Mg Tabcr PO 04/01/25 11:44 25 mg QDAY MEGAN Administration Promethazine HCl 12.5 mg 03/01/25 06:31 Promethazine Hcl 25 Mg Tablet PO 03/31/25 06:30 Q6H PRN nausea and vomiting Protocol Plan 60 y/o F with PMHx significant for insulin dependent diabetes, hypertension, hypothyroidism, rheumatoid arthritis presented to the hospital due to 03/01/2025, significant nausea, vomiting, and diarrhea. Patient was admitted for admitted for intractable nausea/vomiting. Nephrology has been consulted for management of metabolic alkalosis. #Intractable Nausea/Vomiting/Diarrhea #Normal Anion Gap Metabolic Acidosis (NAGMA) #High Anion Gap Metabolic Acidosis (HAGMA) - Resolved #Respiratory Alkalosis #Electrolyte abnormality -On the day of admission (03/01), patient had alkalemia (ABG pH:7.47), Respiratory alkalosis (ABG pCO2:22), Metabolic acidosis (ABG HCO3:16), high Anion gap of 18. Based on winter's formula, expected pCO2 was 32 +/- 2, but actual pCO2 was 22 which is much lower than expected and confirms excessive respiratory alkalosis, not just compensation. Beta-hydroxybutyrate was elevated (5.4) and significant hypokalemia of 2.7. -To summarize, patient likely had HAGMA due to starvation ketoacidosis caused by poor PO intake from prolonged vomiting/diarrhea and excessive respiratory alkalosis likely from hyperventilation from stress or pain from nausea/vomiting/diarrhea. -As of today (03/04), Patient had normal anion gap of 10 and borderline low potassium (3.5), which means patient has NAGMA, which fits classical picture of diarrhea. -However, the root cause of patient's symptoms needs to be further explored, as patient denied previous infections, toxic ingestions, or new abnormal symptoms, and CTAP only showed mass in uterus, which according to OBGYN, unlikely to be the primary cause of her symptom. -CTAP (03/01/2025): No pneumonia pulmonary edema or pleural disease, No bowel obstruction, No hydronephrosis, 33 mm fat-containing mass in the uterus Plan: -Pending Giardia and Norovirus stool antigens testing. -Continue symptomatic treatment. -CTM electrolyte levels. -Colonoscopy for biopsy recommended -Recommend a dose of bicitra. -Pending Stool for ova parasites, cultures #Uterine mass #Stage I hypertension #Insulin-dependent diabetes #Hyperlipidemia #Hypothyroidism #Rheumatoid arthritis -Management per Primary Hospitalist team Thank you for allowing us to participate in the care of your patient. Assessment and plan discussed with my attending physician Dr. Jomar Ayers (PGY-1)- Internal medicine resident Attending Provider Attestation/Addendum patient currently seen and examined with resident physician Dr. Ayers. Note reviewed, agree with findings and recommendations. Patient currently seen in medical floor. Still having significant loose stools along with nausea and vomiting. [place] hyperchloremic metabolic acidosis secondary to GI losses. Added Bicitra. Patient was been seen by GI-pending cultures. Stool for ova parasites, cultures pending. spoke to primary team.
--- NOTE | 2025-03-06 13:28 | ESPR_ITS ---
Documentation for date of: 03/06/25 Subjective Subjective Interval history: No acute overnight events. Patient seen and examined at bedside and resting comfortably in bed. States that she feels better compared to when she came into the hospital. Continues to have improved nausea but states that she had approximately 3-4 loose BMs yesterday that she describes as greasy. Stool studies still pending and depending on results, GI may do colonoscopy. Exam Vital Signs Temp Pulse Resp BP Pulse Ox O2 Del Method O2 Flow Rate 97.5 F 82 18 116/73 92 L Nasal Cannula 2 03/06/25 12:00 03/06/25 12:00 03/06/25 12:00 03/06/25 12:00 03/06/25 12:00 03/06/25 12:03/06/25 12:00 Narrative Exam General: Awake and in no acute distress. Conversational and non-toxic appearing. Neurologic: GCS 15. Alert and oriented x3, no gross neurological deficit, and patient able to move all 4 extremities. HEENT: Normocephalic, atraumatic, mucous membranes moist. Pupils reactive to light. Heart: Regular rate and rhythm, normal S1 and S2, no murmurs. Lungs: Clear to auscultation bilaterally with no wheezing or crackles. Abdomen: Pain on deep palpation of the right lower quadrant. Extremities: No edema. 2+ radial and dorsalis pedis pulses bilaterally. Skin: Warm. Dry. No rash or ecchymoses. Objective Labs 03/08/25 05:11 03/08/25 05:11 Labs: Laboratory Results - last 24 hr 03/04/25 03/05/25 03/06/25 17:20 14:59 05:19 WBC 5.4 RBC 3.64 L Hgb 10.2 L Hct 30.5 L MCV 84 MCH 28.0 MCHC 33.4 RDW Std Deviation 57.2 H Plt Count 252 Neut % (Auto) 32 L Lymph % (Auto) 43 [place] % (Auto) 16 H Eos % (Auto) 7 Baso % (Auto) 1 Neut # (Auto) 1.8 Lymph # (Auto) 2.3 [place] # (Auto) 0.9 H Eos # (Auto) 0.4 Baso # (Auto) 0.1 Immature Gran # (Auto) 0.01 H Absolute Nucleated RBC 0.00 Immature Gran % 0 Nucleated RBC % 0 Sodium 142 144 Potassium 3.4 3.3 L Chloride 115 H 114 H Carbon Dioxide 16.6 L 19.4 L Anion Gap 10 11 BUN < 5 L < 5 L Creatinine 0.6 0.4 L Estim Creat Clear Calc 108.3 162.4 eGFR > 60 > 60 BUN/Creatinine Ratio 8 L 13 Glucose 168 H D 90 D Calculated Osmolality 284 284 Calcium 7.8 L 7.8 L Corrected Calcium 8.9 9.0 Phosphorus 2.8 3.5 Magnesium 1.7 Albumin 2.6 L 2.5 L Stool Campylobacter PCR Negative Stl E.coli Shiga Tox PCR Negative Stool Salmonella PCR Negative Stool Shigella PCR Negative ABG Interpretation ABG results: 03/01/25 02:05 ABG pH 7.47 H ABG pCO2 22 L ABG pO2 88 ABG HCO3 16 L ABG O2 Saturation 98 ABG Base Excess -6 L Quality Measures Quality Measures VTE prophylaxis Assessment & Plan Assessment Current Active Medications: Generic Name Dose Route Start Last Admin Trade Name Freq PRN Reason Stop Dose Admin Hydrocodone Bitart/Acetaminophen 1 tab 03/02/25 09:11 03/05/25 21:59 Hydrocodone/Apap 5/325 Tablet PO 03/07/25 09:10 1 tab Q6HR PRN Administration PAIN SCALE 4-10(Mod-Sev Atorvastatin Calcium 10 mg 03/01/25 21:00 03/05/25 20:53 Atorvastatin Calcium 20 Mg Tablet PO 03/31/25 20:59 10 mg HS MEGAN Administration Citric Acid/Sodium Citrate 30 ml 03/06/25 09:00 03/06/25 08:34 Citric Acid/Sodium Citr 15 Ml Udc (Bicitra) PO 04/05/25 08:59 30 ml BID MEGAN Administration Dextrose 50 ml 03/01/25 06:29 Dextrose 50%-Water Inj 50 Ml Syringe IV 03/31/25 06:28 Q15MIN PRN BG <50 OR BG <70 & pt unresponsive Gabapentin 200 mg 03/01/25 14:00 03/06/25 05:19 Gabapentin 100 Mg Capsule PO 03/31/25 13:59 200 mg TID MEGAN Administration Glucagon 1 mg 03/01/25 06:29 Glucagon Inj 1 Mg Vial IM Q15MIN PRN BG <70, and no IV access Heparin Sodium (Porcine) 5,000 unit 03/01/25 09:00 03/06/25 08:34 Heparin Sod Inj 5000 Unit/Ml Vial SC 03/15/25 08:59 5,000 unit BID MEGAN Administration Insulin Human Lispro 0 unit 03/03/25 17:00 03/06/25 08:33 Insulin Lispro (Admelog) 1 Unit/0.01 Ml Unit SC 04/02/25 16:59 Not Given ACHS MEGAN Protocol Lactobacillus Rhamnosus 1 cap 03/04/25 12:00 03/06/25 08:34 Lactobacillus Rhamnosus 1 Cap PO 04/03/25 11:59 1 cap BID MEGAN Administration Levothyroxine Sodium 112 mcg/ 137 mcg 03/05/25 06:00 03/06/25 05:19 Levothyroxine Sodium 25 mcg PO 04/04/25 05:59 137 mcg ACBR MEGAN Administration Megestrol Acetate 40 mg 03/01/25 10:00 03/06/25 08:34 Megestrol Acet Susp 400 Mg/10 Ml Udc PO 03/31/25 09:59 40 mg QDAY MEGAN Administration Metoprolol Succinate 25 mg 03/02/25 11:45 03/06/25 08:33 Metoprolol Succinate Xl 25 Mg Tabcr PO 04/01/25 11:44 25 mg QDAY MEGAN Administration Promethazine HCl 12.5 mg 03/01/25 06:31 Promethazine Hcl 25 Mg Tablet PO 03/31/25 06:30 Q6H PRN nausea and vomiting Protocol Plan Arlene Palumbo is a 60-year-old female with a history of insulin-dependent diabetes mellitus, hypertension, hypothyroidism, rheumatoid arthritis who was admitted for intractable nausea, vomiting, and diarrhea. #Intractable nausea/vomiting, resolved #Diarrhea Intractable N/V for the past 2.5 weeks prior to arrival, with approximately ~ 10 vomiting episodes per day, some food particles present, non-bloody. No signs of hematemesis. Patient is also had poor p.o. intake during this time, only able to tolerate minimal fluids. Also endorses having loose, watery, and non-bloody bowel movements of about 4-5 per day. EKG showed T waves roughly fci between QRS complexes, concern for long QT syndrome in the presence of amitriptyline and Zofran use. Clinical suspicion has shifted towards colonic infection versus autoimmune in the presence of a positive ADIN test. ? GI consulted, appreciate recommendations ? Stool Campylobacter, E. coli Shiga toxin, Salmonella, and Shigella negative; stool negative for WBCs ? Follow-up stool calprotectin, Giardia, and norovirus ? Lacticaseibacillus rhamnosus 1 capsule p.o. twice daily ? Zofran 4 mg IV every 6 hours as needed ? Endocrinology consulted, appreciate recs ? ACTH, AFP, and beta-hCG negative ? Hold home amitriptyline in light of prolonged QTc #Uterine mass There was a 6 x 6.2 x 6.4 centimeter hyperechoic mass with an avascular region on pelvic ultrasound on 05/06/2024. There was a hyperechoic 4.1 x 3.9 x 2.4 cm uterine mass on pelvic ultrasound on 03/01/2025 Transvaginal ultrasound on 03/03/2025 showed a benign mass in the uterine fundus measuring 2.7 x 2.1 x 3.0 cm. OB does not believe that the patient's uterine mass is the cause of her current symptoms given the reduction in size and the location. OB recommends follow-up with foundation coordinator outpatient and additional tumor markers: GILBERTO panel, CEA, CA 125, CA 19-9. ? STRUCTURAL ENGINEERING PROJECT MANAGER consulted, appreciate recommendations ? Follow-up outpatient STRUCTURAL ENGINEERING PROJECT MANAGER #Mixed Acid Base Disorder #Hypercalcemia (Resolved) #Hypokalemia #Hypomagnesemia #Hypophosphatemia Mixed metabolic alkalosis and metabolic acidosis (vomiting/diarrhea (diuretic use) with starvation ketoacidosis. ? Nephrology consulted, appreciate recs ? Bicitra 30 mg p.o. twice daily ? Treat nausea/vomiting as above ? Monitor and replete electrolytes as needed #Stage I hypertension Blood pressure 140/85 ? Metoprolol succinate 25 mg p.o. daily #Insulin-dependent diabetes Takes insulin as needed. Does not take any other diabetic medications. A1c 5.3% 03/01/2025, glucose 107 on admission. Has been controlled since admission. ? Continue insulin sliding scale #Hyperlipidemia ? Hold in the presence of nausea vomiting #Hypothyroidism 137 mcg po home meds levothyroxine q day 03/04: TSH 12.92 (H) and T4 0.98 WNL ? Levothyroxine 137 mcg p.o. ACBR #Rheumatoid arthritis Patient history as stated. Med rec's pending. ? Resume home meds when appropriate Hospital Management: Disposition: Med Tele, advancing diet as tolerated, pending stool cultures and stool viral panel, nephro and GI recs. Diet: regular GI Prophylaxis: Protonix 40 mg IV qd Bowel Prophylaxis: n/a DVT Prophylaxis: Heparin CODE STATUS: Full Code ----- Plan discussed with attending physician Dr. Manny Moore MD PGY-2 Internal Medicine Attending Provider Attestation/Addendum I attest that I was physically present for the evaluation, physical examination, lab and imaging review of the patient with the residents. I discussed the case with the residents and agree with the findings and plans of care as documented above. Dewayne Bryant MD
[2025-03-06] MEDS: ATORVASTATIN CALCIUM 20 MG TABLET 10 MG PO (20:54)
[2025-03-06] MEDS: HYDROcodone/APAP 5/325 TABLET 1 TAB PO (20:55)
--- NOTE | 2025-03-06 20:55 | PD.IMPROG ---
Documentation for date of: 03/06/25 Subjective Subjective Interval history: So far stool panel is negative Exam Vital Signs Temp Pulse Resp BP Pulse Ox O2 Del Method O2 Flow Rate 97.8 F 79 16 105/56 L 97 Nasal Cannula 2 03/06/25 20:00 03/06/25 20:00 03/06/25 20:00 03/06/25 20:00 03/06/25 20:00 03/06/25 20:00 03/06/25 20:00 Objective Labs 03/07/25 05:16 03/07/25 05:16 Labs: Laboratory Results - last 24 hr 03/06/25 05:19 WBC 5.4 RBC 3.64 L Hgb 10.2 L Hct 30.5 L MCV 84 MCH 28.0 MCHC 33.4 RDW Std Deviation 57.2 H Plt Count 252 Neut % (Auto) 32 L Lymph % (Auto) 43 [place] % (Auto) 16 H Eos % (Auto) 7 Baso % (Auto) 1 Neut # (Auto) 1.8 Lymph # (Auto) 2.3 [place] # (Auto) 0.9 H Eos # (Auto) 0.4 Baso # (Auto) 0.1 Immature Gran # (Auto) 0.01 H Absolute Nucleated RBC 0.00 Immature Gran % 0 Nucleated RBC % 0 Sodium 144 Potassium 3.3 L Chloride 114 H Carbon Dioxide 19.4 L Anion Gap 11 BUN < 5 L Creatinine 0.4 L Estim Creat Clear Calc 162.4 eGFR > 60 BUN/Creatinine Ratio 13 Glucose 90 D Calculated Osmolality 284 Calcium 7.8 L Corrected Calcium 9.0 Phosphorus 3.5 Magnesium 1.7 Albumin 2.5 L ABG Interpretation ABG results: 03/01/25 02:05 ABG pH 7.47 H ABG pCO2 22 L ABG pO2 88 ABG HCO3 16 L ABG O2 Saturation 98 ABG Base Excess -6 L Assessment & Plan A&P Narrative Chronic persistent diarrhea etiology uncertain No evidence of any colitis on his CT scan imaging done on admission of the abdomen and pelvis Most of the stool studies are pending except culture and sensitivity is negative Suggestions Wait for the results of the stool studies to come back before scheduling invasive GI workup such as colonoscopy with biopsies if the diarrhea still persist Fecal calprotectin ANCA antibody CRP Hold off colonoscopy Will follow the patient Other medical problems include Essential hypertension Hypothyroidism Rheumatoid arthritis IDDM Thank you very much for the opportunity to participate in the care of this patient Time Spent With Patient Time: Total time spent is greater than 50% in coordination of care (as documented) at patient's floor/unit and/or counseling patient:
[2025-03-07] VITALS (10 sets, daily range): BP systolic 95–131; BP diastolic 61–80; PULSE 65–90; RESP 15–19; TEMP 36.3–37.2; O2SAT 96–98
[2025-03-07] MEDS: GABAPENTIN 100 MG CAPSULE 200 MG PO ×3 (05:15→21:10)
[2025-03-07 06:09] LABS: Basophils # (Auto) 0.0 Thou/mm3 (0.0-0.2); Basophils % (Auto) 1 % (0-2.5); Eosinophils # (Auto) 0.3 Thou/mm3 (0.0-0.5); Eosinophils % (Auto) 6 % (0-10); Hematocrit 30.0 % (36.0-46.0); Hemoglobin 9.9 g/dL (12.0-16.0); Immature Granulocytes Auto 0.01 Thou/mm3 (0.00-0.00); Lymphocytes # (Auto) 2.3 Thou/mm3 (1.0-4.8); Lymphocytes % (Auto) 45 % (10-50); Mean Corpuscular HGB Conc 33.0 g/dl (31.0-37.0); Mean Corpuscular Hemoglobin 27.9 pg (25.0-35.0); Mean Corpuscular Volume 85 fL (80-100); Monocytes # (Auto) 0.9 Thou/mm3 (0.0-0.8); Monocytes % (Auto) 16 % (0-12); Neutrophils # (Auto) 1.7 Thou/mm3 (1.8-7.7); Neutrophils % (Auto) 32 % (37-80); Nucleated Red Blood Cell # 0.00 Thou/mm3 (0.00-0.00); Nucleated Red Blood Cell % 0 /100 WBC (0); Platelet Count 190 Thou/mm3 (140-440); RDW Standard Deviation 58.4 fL (36.4-46.3); Red Blood Count 3.55 Miln/mm3 (4.00-5.20); White Blood Count 5.2 Thou/mm3 (3.6-11.0)
[2025-03-07 06:36] LABS: CA 19-9 Antigen* 21 U/mL (<34)
[2025-03-07 06:39] LABS: Albumin, Serum 2.6 gm/dL (3.4-4.8); Anion Gap 11 (7-16); BUN/Creatinine Ratio 10 Ratio (12-20); Blood Urea Nitrogen < 5 mg/dL (9-23); Calcium 8.5 mg/dL (8.3-10.6); Calcium (Corrected) 9.6 mg/dL (8.5-10.1); Carbon Dioxide 23.1 mMol/L (20.0-31.0); Chloride 112 mMol/L (98-107); Creatinine (Component) 0.5 mg/dL (0.6-1.3); Estimated Creatinine Clearance 129.9 mL/min (>60); Glucose 97 mg/dL (74-106); Magnesium 2.2 mg/dL (1.6-2.6); Osmolality,Calculated 287 (275-295); Phosphorous 3.3 mg/dL (2.4-5.1); Potassium 3.6 mMol/L (3.4-5.1); Sodium 146 mMol/L (136-145); eGFR > 60 See Note
[2025-03-07] MEDS: PROMETHAZINE HCL 25 MG TABLET 12.5 MG PO (07:41)
--- NOTE | 2025-03-07 08:40 | PD.RESPRO ---
Documentation for date of: 03/07/25 Subjective Subjective Interval history: 60 y/o F with PMHx significant for insulin dependent diabetes, hypertension, hypothyroidism, rheumatoid arthritis presented to the hospital due to 03/01/2025, significant nausea, vomiting, and diarrhea. Patient experienced 2 weeks of persistent nausea and vomiting, followed by onset of profuse watery diarrhea beginning approximately 5 days ago before coming to the hospital. She reports vomiting more than 10 times daily and experiencing continuous diarrhea. Symptoms are associated with generalized weakness and inability to tolerate oral intake. She denies hematemesis or bloody stools. She also denies recent travel or known sick contacts. She endorses chills, but deepa fever. Additionally she notes mild shortness of breath. Denies chest pain, palpation. Patient was admitted for admitted for intractable nausea/vomiting. Nephrology has been consulted for management of metabolic alkalosis. ED Course: -Initial vitals were Temperature 97.6 ?F pulse 102, respiratory rate 16, blood pressure 122/89, 97% oxygen saturation on room air -Labs significant for ABG pH of 7.47, pCO2 22, PaO2 88, HCO3 16; potassium 2.7, anion gap 18, lactic acid 2.3, corrected calcium 7.2, CRP 3.6, beta hydroxybutyrate 5.4, TSH 44.5, free T4.66, free T32.1; urinalysis showed 2+ ketones, urine sodium less than 15, urine potassium 11, urine chloride less than 20; -Imaging included Gallbladder ultrasound, pelvis ultrasound, CT CAP, EKG (no read yet, f/u) Blood cultures x 2 -In the ED, patient was given Sodium chloride IV bolus 1 L Zofran, morphine, potassium chloride oral and liquid (liquid not tolerated), maintenance fluids, diazepam PMH: Hypertension, diabetes, hypothyroidism, rheumatoid arthritis PSH: Cholecystectomy, left cataract surgery, left ankle fracture repair, left knee repair, right shoulder repair x 2 SH: Denies tobacco use. Reports usually drinking 1?2 beers per week in the past. Reports taking 1 CBD gummy daily for back pain. Allergies:?NKDA Medications: amitriptyline, megestrol, promethazine, Levothyroxine, insulin, lovastatin, Enbrel 03/04/2025: Labs reviewed and patient examined at the bedside. On the day of admission (03/01), patient had alkalemia (ABG pH:7.47), Respiratory alkalosis (ABG pCO2:22), Metabolic acidosis (ABG HCO3:16), high Anion gap of 18. Based on winter's formula, expected pCO2 was 32 +/- 2, but actual pCO2 was 22 which is much lower than expected and confirms excessive respiratory alkalosis, not just compensation. Beta-hydroxybutyrate was elevated (5.4) and significant hypokalemia of 2.7. To summarize, patient likely had HAGMA due to starvation ketoacidosis caused by poor PO intake from prolonged vomiting/diarrhea and excessive respiratory alkalosis likely from hyperventilation from stress or pain from nausea/vomiting/diarrhea. As of today (03/04), Patient had normal anion gap of 10 and borderline low potassium (3.5), which means patient has NAGMA, which fits classical picture of diarrhea. However, the root cause of patient's symptoms needs to be further explored, as patient denied previous infections, toxic ingestions, or new abnormal symptoms, and CTAP only showed mass in uterus, which according to OBGYN, unlikely to be the primary cause of her symptom. 03/05/2025:Labs reviewed and patient examined at the bedside. Patient's Nausea and vomiting has improved, but diarrhea still continues. Colonoscopy is recommended for evaulation of diarrhea and possible biopsy. Recommend a dose of bicitra. 03/06/2025: Labs reviewed and patient examined at the bedside. Patient has ongoing fluctance of nausea, vomiting, and diarrhea. Patient noted her diarrhea is not improving. Colonoscopy has been delayed because stool culture needs to return first. Still exploring possible causes of her diarrhea. HCO3: 19.4. Recommend a dose of bicitra. 03/07/2025: Labs reviewed and patient examined at the bedside. Patient has been feeling much better today. Miminal Nausea and vomiting. Also fewer diarrhea. Currently waiting for Stool giardia and norovirus is pending. Will continue to monitir. HCO3: 23.1 Exam Vital Signs Temp Pulse Resp BP Pulse Ox O2 Del Method O2 Flow Rate 98.1 F 90 19 121/75 98 Room Air 2 03/07/25 08:00 03/07/25 08:00 03/07/25 08:00 03/07/25 08:00 03/07/25 08:00 03/07/25 08:00 03/07/25 04:00 Narrative Exam General: Stressed, weak, AAO x3 Eye: PERRL, EOMI, normal conjunctiva, no scleral icterus HENT: Normocephalic, atraumatic, hearing intact to conversation at normal volume, moist oral mucosa Neck: Supple, non-tender, no JVD, no lymphadenopathy Lungs: Non-labored respirations, symmetric chest rise, Clear to auscultate bilaterally, No wheezing, rhonchi, crackles Heart: Peripheral pulses intact bilaterally, Regular Rate and Rhythm. Abdomen: Soft, non-tender, non-distended, no palpable masses Musculoskeletal: Normal range of motion and strength, No visible joint swelling, +1 Pitting edema bilaterally Skin: Skin is warm, dry, no rashes or lesions. Psychiatric: Cooperative, appropriate mood and affect, Awake and alert, not agitated Neuro: Cranial nerves II-XII grossly intact. \Sensations intact to light touch. Objective Labs 03/08/25 05:11 03/08/25 05:11 Labs: Laboratory Results - last 24 hr 03/04/25 03/07/25 06:39 05:16 WBC 5.2 RBC 3.55 L Hgb 9.9 L Hct 30.0 L MCV 85 MCH 27.9 MCHC 33.0 RDW Std Deviation 58.4 H Plt Count 190 D Neut % (Auto) 32 L Lymph % (Auto) 45 [place] % (Auto) 16 H Eos % (Auto) 6 Baso % (Auto) 1 Neut # (Auto) 1.7 L Lymph # (Auto) 2.3 [place] # (Auto) 0.9 H Eos # (Auto) 0.3 Baso # (Auto) 0.0 Immature Gran # (Auto) 0.01 H Absolute Nucleated RBC 0.00 Immature Gran % 0 Nucleated RBC % 0 Sodium 146 H Potassium 3.6 Chloride 112 H Carbon Dioxide 23.1 Anion Gap 11 BUN < 5 L Creatinine 0.5 L Estim Creat Clear Calc 129.9 eGFR > 60 BUN/Creatinine Ratio 10 L Glucose 97 Calculated Osmolality 287 Calcium 8.5 Corrected Calcium 9.6 Phosphorus 3.3 Magnesium 2.2 Albumin 2.6 L CA 19-9 Antigen 21 ABG Interpretation ABG results: 03/01/25 02:05 ABG pH 7.47 H ABG pCO2 22 L ABG pO2 88 ABG HCO3 16 L ABG O2 Saturation 98 ABG Base Excess -6 L Quality Measures Quality Measures VTE prophylaxis Assessment & Plan Assessment Current Active Medications: Generic Name Dose Route Start Last Admin Trade Name Freq PRN Reason Stop Dose Admin Hydrocodone Bitart/Acetaminophen 1 tab 03/02/25 09:11 03/06/25 20:55 Hydrocodone/Apap 5/325 Tablet PO 03/07/25 09:10 1 tab Q6HR PRN Administration PAIN SCALE 4-10(Mod-Sev Atorvastatin Calcium 10 mg 03/01/25 21:00 03/06/25 20:54 Atorvastatin Calcium 20 Mg Tablet PO 03/31/25 20:59 10 mg HS MEGAN Administration Citric Acid/Sodium Citrate 30 ml 03/06/25 09:00 03/06/25 20:55 Citric Acid/Sodium Citr 15 Ml Udc (Bicitra) PO 04/05/25 08:59 30 ml BID MEGAN Administration Dextrose 50 ml 03/01/25 06:29 Dextrose 50%-Water Inj 50 Ml Syringe IV 03/31/25 06:28 Q15MIN PRN BG <50 OR BG <70 & pt unresponsive Gabapentin 200 mg 03/01/25 14:00 03/07/25 05:15 Gabapentin 100 Mg Capsule PO 03/31/25 13:59 200 mg TID MEGAN Administration Glucagon 1 mg 03/01/25 06:29 Glucagon Inj 1 Mg Vial IM Q15MIN PRN BG <70, and no IV access Heparin Sodium (Porcine) 5,000 unit 03/01/25 09:00 03/06/25 20:55 Heparin Sod Inj 5000 Unit/Ml Vial SC 03/15/25 08:59 5,000 unit BID MEGAN Administration Insulin Human Lispro 0 unit 03/03/25 17:00 03/07/25 07:43 Insulin Lispro (Admelog) 1 Unit/0.01 Ml Unit SC 04/02/25 16:59 Not Given ACHS MEGAN Protocol Lactobacillus Rhamnosus 1 cap 03/04/25 12:00 03/06/25 20:55 Lactobacillus Rhamnosus 1 Cap PO 04/03/25 11:59 1 cap BID MEGAN Administration Levothyroxine Sodium 112 mcg/ 137 mcg 03/05/25 06:00 03/07/25 05:15 Levothyroxine Sodium 25 mcg PO 04/04/25 05:59 137 mcg ACBR MEGAN Administration Megestrol Acetate 40 mg 03/01/25 10:00 03/06/25 08:34 Megestrol Acet Susp 400 Mg/10 Ml Udc PO 03/31/25 09:59 40 mg QDAY MEGAN Administration Metoprolol Succinate 25 mg 03/02/25 11:45 03/06/25 08:33 Metoprolol Succinate Xl 25 Mg Tabcr PO 04/01/25 11:44 25 mg QDAY MEGAN Administration Promethazine HCl 12.5 mg 03/01/25 06:31 03/07/25 07:41 Promethazine Hcl 25 Mg Tablet PO 03/31/25 06:30 12.5 mg Q6H PRN Administration nausea and vomiting Protocol Plan 60 y/o F with PMHx significant for insulin dependent diabetes, hypertension, hypothyroidism, rheumatoid arthritis presented to the hospital due to 03/01/2025, significant nausea, vomiting, and diarrhea. Patient was admitted for admitted for intractable nausea/vomiting. Nephrology has been consulted for management of metabolic alkalosis. #Intractable Nausea/Vomiting/Diarrhea #Normal Anion Gap Metabolic Acidosis (NAGMA) #High Anion Gap Metabolic Acidosis (HAGMA) - Resolved #Respiratory Alkalosis #Electrolyte abnormality -On the day of admission (03/01), patient had alkalemia (ABG pH:7.47), Respiratory alkalosis (ABG pCO2:22), Metabolic acidosis (ABG HCO3:16), high Anion gap of 18. Based on winter's formula, expected pCO2 was 32 +/- 2, but actual pCO2 was 22 which is much lower than expected and confirms excessive respiratory alkalosis, not just compensation. Beta-hydroxybutyrate was elevated (5.4) and significant hypokalemia of 2.7. -To summarize, patient likely had HAGMA due to starvation ketoacidosis caused by poor PO intake from prolonged vomiting/diarrhea and excessive respiratory alkalosis likely from hyperventilation from stress or pain from nausea/vomiting/diarrhea. -As of today (03/04), Patient had normal anion gap of 10 and borderline low potassium (3.5), which means patient has NAGMA, which fits classical picture of diarrhea. -However, the root cause of patient's symptoms needs to be further explored, as patient denied previous infections, toxic ingestions, or new abnormal symptoms, and CTAP only showed mass in uterus, which according to OBGYN, unlikely to be the primary cause of her symptom. -CTAP (03/01/2025): No pneumonia pulmonary edema or pleural disease, No bowel obstruction, No hydronephrosis, 33 mm fat-containing mass in the uterus Plan: -Pending Giardia and Norovirus stool antigens testing. -Continue symptomatic treatment. -CTM electrolyte levels. -Colonoscopy for biopsy recommended -Recommend a dose of bicitra. -Pending Stool [place] and Norovirus. #Uterine mass #Stage I hypertension #Insulin-dependent diabetes #Hyperlipidemia #Hypothyroidism #Rheumatoid arthritis -Management per Primary Hospitalist team Thank you for allowing us to participate in the care of your patient. Assessment and plan discussed with my attending physician Dr. Jomar Ayers (PGY-1)- Internal medicine resident Attending Provider Attestation/Addendum patient currently seen and examined with resident physician Dr. Ayers. Note reviewed, agree with findings and recommendations. Patient currently seen in medical floor. Still having significant loose stools along with nausea and vomiting. [place] hyperchloremic metabolic acidosis secondary to GI losses. Added Bicitra. Patient was been seen by GI- So far cultures negative. Stool for WBC negative. Renal graham stable for discharge. Spoke to primary team.
[2025-03-07] MEDS: CITRIC ACID/SODIUM CITR 15 ML UDC (BICITRA) 30 ML PO ×2 (09:29→21:10)
[2025-03-07] MEDS: HEPARIN SOD INJ 5000 UNIT/ML VIAL SC ×2 (09:29→21:19)
[2025-03-07] MEDS: MEGESTROL ACET SUSP 400 MG/10 ML UDC 40 MG PO (09:30)
[2025-03-07] MEDS: LACTOBACILLUS RHAMNOSUS 1 CAP PO ×2 (09:30→21:11)
[2025-03-07] MEDS: METOPROLOL SUCCINATE XL 25 MG TABCR PO (09:30)
--- NOTE | 2025-03-07 10:22 | XR_ITS ---
Examination: Venous duplex lower extremity sonogram, bilateral. Date and time of exam: March 07, 2025, 1138 hours INDICATIONS: Bilateral leg swelling and pain today Technique: Multiple sonographic images of the deep venous system have been obtained. B-mode/2-D grayscale imaging of vascular structures and Doppler spectral analysis (waveforms) and color performed Both legs are examined. Findings: Deep venous systems do not demonstrate abnormal echogenicity. All visualized deep veins exhibit compressibility. All visualized deep veins exhibit augmentation. Impression: Negative for deep vein thrombosis
--- NOTE | 2025-03-07 12:12 | ESPR_ITS ---
Documentation for date of: 03/07/25 Subjective Subjective Interval history: Patient seen and examined at bedside. No acute overnight events. Patient produced 1 bowel movement today and mentioned that it was more formed. She also requested a regular diet and has been tolerating her previous meals well. Her nausea has improved. Stool Giardia pending. GI does not plan for colonoscopy. Physical therapy and echo ordered. Patient slightly hyponatremic, encouraged oral hydration. Exam Vital Signs Temp Pulse Resp BP Pulse Ox O2 Del Method O2 Flow Rate 97.3 F 84 18 131/68 H 98 Room Air 2 03/07/25 11:48 03/07/25 11:55 03/07/25 11:48 03/07/25 11:48 03/07/25 11:48 03/07/25 11:48 03/07/25 11:46 Narrative Exam General: Awake and in no acute distress. Conversational and non-toxic appearing. Neurologic: GCS 15. Alert and oriented x3, no gross neurological deficit, and patient able to move all 4 extremities. HEENT: Normocephalic, atraumatic, mucous membranes moist. Pupils reactive to light. Heart: Regular rate and rhythm, normal S1 and S2, no murmurs. Lungs: Clear to auscultation bilaterally with no wheezing or crackles. Abdomen: Pain on deep palpation of the right lower quadrant. Extremities: 2+ pitting edema bilaterally below the knees. 2+ radial and dorsalis pedis pulses bilaterally. Skin: Warm. Dry. No rash or ecchymoses. Objective Labs 03/08/25 05:11 03/08/25 05:11 Labs: Laboratory Results - last 24 hr 03/04/25 03/07/25 06:39 05:16 WBC 5.2 RBC 3.55 L Hgb 9.9 L Hct 30.0 L MCV 85 MCH 27.9 MCHC 33.0 RDW Std Deviation 58.4 H Plt Count 190 D Neut % (Auto) 32 L Lymph % (Auto) 45 [place] % (Auto) 16 H Eos % (Auto) 6 Baso % (Auto) 1 Neut # (Auto) 1.7 L Lymph # (Auto) 2.3 [place] # (Auto) 0.9 H Eos # (Auto) 0.3 Baso # (Auto) 0.0 Immature Gran # (Auto) 0.01 H Absolute Nucleated RBC 0.00 Immature Gran % 0 Nucleated RBC % 0 Sodium 146 H Potassium 3.6 Chloride 112 H Carbon Dioxide 23.1 Anion Gap 11 BUN < 5 L Creatinine 0.5 L Estim Creat Clear Calc 129.9 eGFR > 60 BUN/Creatinine Ratio 10 L Glucose 97 Calculated Osmolality 287 Calcium 8.5 Corrected Calcium 9.6 Phosphorus 3.3 Magnesium 2.2 Albumin 2.6 L CA 19-9 Antigen 21 ABG Interpretation ABG results: 03/01/25 02:05 ABG pH 7.47 H ABG pCO2 22 L ABG pO2 88 ABG HCO3 16 L ABG O2 Saturation 98 ABG Base Excess -6 L Quality Measures Quality Measures VTE prophylaxis Assessment & Plan Assessment Current Active Medications: Generic Name Dose Route Start Last Admin Trade Name Freq PRN Reason Stop Dose Admin Atorvastatin Calcium 10 mg 03/01/25 21:00 03/06/25 20:54 Atorvastatin Calcium 20 Mg Tablet PO 03/31/25 20:59 10 mg HS MEGAN Administration Citric Acid/Sodium Citrate 30 ml 03/06/25 09:00 03/07/25 09:29 Citric Acid/Sodium Citr 15 Ml Udc (Bicitra) PO 04/05/25 08:59 30 ml BID MEGAN Administration Dextrose 50 ml 03/01/25 06:29 Dextrose 50%-Water Inj 50 Ml Syringe IV 03/31/25 06:28 Q15MIN PRN BG <50 OR BG <70 & pt unresponsive Gabapentin 200 mg 03/01/25 14:00 03/07/25 05:15 Gabapentin 100 Mg Capsule PO 03/31/25 13:59 200 mg TID MEGAN Administration Glucagon 1 mg 03/01/25 06:29 Glucagon Inj 1 Mg Vial IM Q15MIN PRN BG <70, and no IV access Heparin Sodium (Porcine) 5,000 unit 03/01/25 09:00 03/07/25 09:29 Heparin Sod Inj 5000 Unit/Ml Vial SC 03/15/25 08:59 5,000 unit BID MEGAN Administration Insulin Human Lispro 0 unit 03/03/25 17:00 03/07/25 11:58 Insulin Lispro (Admelog) 1 Unit/0.01 Ml Unit SC 04/02/25 16:59 Not Given ACHS MEGAN Protocol Lactobacillus Rhamnosus 1 cap 03/04/25 12:00 03/07/25 09:30 Lactobacillus Rhamnosus 1 Cap PO 04/03/25 11:59 1 cap BID MEGAN Administration Levothyroxine Sodium 112 mcg/ 137 mcg 03/05/25 06:00 03/07/25 05:15 Levothyroxine Sodium 25 mcg PO 04/04/25 05:59 137 mcg ACBR MEGAN Administration Megestrol Acetate 40 mg 03/01/25 10:00 03/07/25 09:30 Megestrol Acet Susp 400 Mg/10 Ml Udc PO 03/31/25 09:59 40 mg QDAY MEGAN Administration Metoprolol Succinate 25 mg 03/02/25 11:45 03/07/25 09:30 Metoprolol Succinate Xl 25 Mg Tabcr PO 04/01/25 11:44 25 mg QDAY MEGAN Administration Promethazine HCl 12.5 mg 03/01/25 06:31 03/07/25 07:41 Promethazine Hcl 25 Mg Tablet PO 03/31/25 06:30 12.5 mg Q6H PRN Administration nausea and vomiting Protocol Plan Arlene Palumbo is a 60-year-old female with a history of insulin-dependent diabetes mellitus, hypertension, hypothyroidism, rheumatoid arthritis who was admitted for intractable nausea, vomiting, and diarrhea. #Intractable nausea/vomiting, resolved #Diarrhea Intractable N/V for the past 2.5 weeks prior to arrival, with approximately ~ 10 vomiting episodes per day, some food particles present, non-bloody. No signs of hematemesis. Patient is also had poor p.o. intake during this time, only able to tolerate minimal fluids. Also endorses having loose, watery, and non-bloody bowel movements of about 4-5 per day. EKG showed T waves roughly long-term between QRS complexes, concern for long QT syndrome in the presence of amitriptyline and Zofran use. Clinical suspicion has shifted towards colonic infection versus autoimmune in the presence of a positive ADIN test. Plan: ? GI consulted, appreciate recommendations ? Stool Campylobacter, E. coli Shiga toxin, Salmonella, and Shigella negative; stool negative for WBCs ? Follow-up stool calprotectin, Giardia, and norovirus ? Lacticaseibacillus rhamnosus 1 capsule p.o. twice daily ? Zofran 4 mg IV every 6 hours as needed ? Endocrinology consulted, appreciate recs ? ACTH, AFP, and beta-hCG negative ? Hold home amitriptyline in light of prolonged QTc #Pitting Edema Patient mentions that she has never had diagnosis of heart failure. She describes feeling claustrophobic while lying down and mentions slight orthopnea Plan: ? Will order echocardiogram in the presence of bilateral pitting edema in the lower extremities combined with patient's mention of orthopnea #Uterine mass There was a 6 x 6.2 x 6.4 centimeter hyperechoic mass with an avascular region on pelvic ultrasound on 05/06/2024. There was a hyperechoic 4.1 x 3.9 x 2.4 cm uterine mass on pelvic ultrasound on 03/01/2025 Transvaginal ultrasound on 03/03/2025 showed a benign mass in the uterine fundus measuring 2.7 x 2.1 x 3.0 cm. OB does not believe that the patient's uterine mass is the cause of her current symptoms given the reduction in size and the location. OB recommends follow-up with green house manager outpatient and additional tumor markers: GILBERTO panel, CEA, CA 125, CA 19-9. ? LAW REPORTER consulted, appreciate recommendations ? Follow-up outpatient LAW REPORTER #Mixed Acid Base Disorder #Hypercalcemia (Resolved) #Hypokalemia #Hypomagnesemia #Hypophosphatemia Mixed metabolic alkalosis and metabolic acidosis (vomiting/diarrhea (diuretic use) with starvation ketoacidosis. ? Nephrology consulted, appreciate recs ? Bicitra 30 mg p.o. twice daily ? Treat nausea/vomiting as above ? Monitor and replete electrolytes as needed #Stage I hypertension Blood pressure 140/85 ? Metoprolol succinate 25 mg p.o. daily #Insulin-dependent diabetes Takes insulin as needed. Does not take any other diabetic medications. A1c 5.3% 03/01/2025, glucose 107 on admission. Has been controlled since admission. ? Continue insulin sliding scale #Hyperlipidemia ? Hold in the presence of nausea vomiting #Hypothyroidism 137 mcg po home meds levothyroxine q day 03/04: TSH 12.92 (H) and T4 0.98 WNL ? Levothyroxine 137 mcg p.o. ACBR #Rheumatoid arthritis Patient history as stated. Med rec's pending. ? Resume home meds when appropriate Hospital Management: Disposition: Med Tele, echo and PT ordered. Pending stool cultures and stool viral panel, nephro and GI recs. Anticipate discharge in the next 24 hours. Diet: regular GI Prophylaxis: Protonix 40 mg IV qd Bowel Prophylaxis: n/a DVT Prophylaxis: Heparin CODE STATUS: Full Code Patient was seen and discussed with my attending physician Dr. Manny WHEATLEY. Amos Mariano DO PGY-1. Attending Provider Attestation/Addendum I attest that I was physically present for the evaluation, physical examination, lab and imaging review of the patient with the residents. I discussed the case with the residents and agree with the findings and plans of care as documented above. Dewayne Bryant MD
--- NOTE | 2025-03-07 16:19 | PC.SS ---
TERRY and [place] from PT met with pt who is aware to follow up with out Patient PT (per [place], PT's recommendations). SS has sent referral to Out Patient PT using [facility] and fax. SS provided pt with [facility] with Out Patient PT's address and phone#.
--- NOTE | 2025-03-07 16:26 | ESPR_ITS ---
Documentation for date of: 03/07/25 Subjective Subjective Interval history: 1 solid stool today more formed No need for any colonoscopy Advance diet and the patient can be discharged home Exam Vital Signs Temp Pulse Resp BP Pulse Ox O2 Del Method O2 Flow Rate 97.3 F 81 18 95/66 98 Room Air 2 03/07/25 16:05 03/07/25 16:05 03/07/25 16:05 03/07/25 16:05 03/07/25 16:05 03/07/25 16:05 03/07/25 11:46 Objective Labs 03/07/25 05:16 03/07/25 05:16 Labs: Laboratory Results - last 24 hr 03/04/25 03/07/25 06:39 05:16 WBC 5.2 RBC 3.55 L Hgb 9.9 L Hct 30.0 L MCV 85 MCH 27.9 MCHC 33.0 RDW Std Deviation 58.4 H Plt Count 190 D Neut % (Auto) 32 L Lymph % (Auto) 45 [place] % (Auto) 16 H Eos % (Auto) 6 Baso % (Auto) 1 Neut # (Auto) 1.7 L Lymph # (Auto) 2.3 [place] # (Auto) 0.9 H Eos # (Auto) 0.3 Baso # (Auto) 0.0 Immature Gran # (Auto) 0.01 H Absolute Nucleated RBC 0.00 Immature Gran % 0 Nucleated RBC % 0 Sodium 146 H Potassium 3.6 Chloride 112 H Carbon Dioxide 23.1 Anion Gap 11 BUN < 5 L Creatinine 0.5 L Estim Creat Clear Calc 129.9 eGFR > 60 BUN/Creatinine Ratio 10 L Glucose 97 Calculated Osmolality 287 Calcium 8.5 Corrected Calcium 9.6 Phosphorus 3.3 Magnesium 2.2 Albumin 2.6 L CA 19-9 Antigen 21 Impressions Impression: Resolved infectious enterocolitis/viral gastroenteritis No need for a colonoscopy Advance diet Patient can be discharged home from a GI viewpoint ABG Interpretation ABG results: 03/01/25 02:05 ABG pH 7.47 H ABG pCO2 22 L ABG pO2 88 ABG HCO3 16 L ABG O2 Saturation 98 ABG Base Excess -6 L Assessment & Plan A&P Narrative Chronic persistent diarrhea etiology uncertain No evidence of any colitis on his CT scan imaging done on admission of the abdomen and pelvis Most of the stool studies are pending except culture and sensitivity is negative Suggestions Wait for the results of the stool studies to come back before scheduling invasive GI workup such as colonoscopy with biopsies if the diarrhea still persist Fecal calprotectin ANCA antibody CRP Hold off colonoscopy Will follow the patient Other medical problems include Essential hypertension Hypothyroidism Rheumatoid arthritis IDDM Thank you very much for the opportunity to participate in the care of this patient Time Spent With Patient Time: Total time spent is greater than 50% in coordination of care (as documented) at patient's floor/unit and/or counseling patient:
--- NOTE | 2025-03-07 16:31 | PC.PT ---
PT eval only. Patient is at her PLOF. Will benefit for outpatient PT for her LBP.
[2025-03-07] MEDS: ATORVASTATIN CALCIUM 20 MG TABLET 10 MG PO (21:10)
[2025-03-07] MEDS: HYDROcodone/APAP 5/325 TABLET 1 TAB PO (21:37)
[2025-03-08] VITALS: BP 123/76; PULSE 86; RESP 18; TEMP 36.3; O2SAT 98
[2025-03-08 04:00] VITALS: BP 116/78; PULSE 85; PULSE 86; RESP 19; TEMP 37.1; O2SAT 96
[2025-03-08] MEDS: GABAPENTIN 100 MG CAPSULE 200 MG PO (05:25)
[2025-03-08 06:15] LABS: Basophils # (Auto) 0.0 Thou/mm3 (0.0-0.2); Basophils % (Auto) 1 % (0-2.5); Eosinophils # (Auto) 0.4 Thou/mm3 (0.0-0.5); Eosinophils % (Auto) 6 % (0-10); Hematocrit 30.4 % (36.0-46.0); Hemoglobin 10.0 g/dL (12.0-16.0); Immature Granulocytes Auto 0.01 Thou/mm3 (0.00-0.00); Lymphocytes # (Auto) 2.1 Thou/mm3 (1.0-4.8); Lymphocytes % (Auto) 37 % (10-50); Mean Corpuscular HGB Conc 32.9 g/dl (31.0-37.0); Mean Corpuscular Hemoglobin 28.6 pg (25.0-35.0); Mean Corpuscular Volume 87 fL (80-100); Monocytes # (Auto) 1.0 Thou/mm3 (0.0-0.8); Monocytes % (Auto) 18 % (0-12); Neutrophils # (Auto) 2.2 Thou/mm3 (1.8-7.7); Neutrophils % (Auto) 38 % (37-80); Nucleated Red Blood Cell # 0.00 Thou/mm3 (0.00-0.00); Nucleated Red Blood Cell % 0 /100 WBC (0); Platelet Count 255 Thou/mm3 (140-440); RDW Standard Deviation 60.4 fL (36.4-46.3); Red Blood Count 3.50 Miln/mm3 (4.00-5.20); White Blood Count 5.8 Thou/mm3 (3.6-11.0)
[2025-03-08 06:59] LABS: Albumin, Serum 2.9 gm/dL (3.4-4.8); Anion Gap 8 (7-16); BUN/Creatinine Ratio 10 Ratio (12-20); Blood Urea Nitrogen < 5 mg/dL (9-23); Calcium 8.6 mg/dL (8.3-10.6); Calcium (Corrected) 9.5 mg/dL (8.5-10.1); Carbon Dioxide 20.6 mMol/L (20.0-31.0); Chloride 113 mMol/L (98-107); Creatinine (Component) 0.5 mg/dL (0.6-1.3); Estimated Creatinine Clearance 129.9 mL/min (>60); Glucose 99 mg/dL (74-106); Magnesium 1.9 mg/dL (1.6-2.6); Osmolality,Calculated 280 (275-295); Phosphorous 3.3 mg/dL (2.4-5.1); Potassium 3.6 mMol/L (3.4-5.1); Sodium 142 mMol/L (136-145); eGFR > 60 See Note
[2025-03-08 08:00] VITALS: BP 125/64; PULSE 73; PULSE 85; RESP 20; TEMP 36.1; O2SAT 96
[2025-03-08] MEDS: CITRIC ACID/SODIUM CITR 15 ML UDC (BICITRA) 30 ML PO (08:06)
[2025-03-08] MEDS: MEGESTROL ACET SUSP 400 MG/10 ML UDC 40 MG PO (08:07)
[2025-03-08 08:08] VITALS: BP 125/64; PULSE 85
[2025-03-08] MEDS: HYDROcodone/APAP 5/325 TABLET 1 TAB PO (08:08)
[2025-03-08] MEDS: HEPARIN SOD INJ 5000 UNIT/ML VIAL SC (08:08)
[2025-03-08] MEDS: METOPROLOL SUCCINATE XL 25 MG TABCR PO (08:08)
[2025-03-08] MEDS: LACTOBACILLUS RHAMNOSUS 1 CAP PO (08:08)
--- NOTE | 2025-03-08 09:52 | ESPR_ITS ---
Documentation for date of: 03/08/25 Subjective Subjective Interval history: 60 y/o F with PMHx significant for insulin dependent diabetes, hypertension, hypothyroidism, rheumatoid arthritis presented to the hospital due to 03/01/2025, significant nausea, vomiting, and diarrhea. Patient experienced 2 weeks of persistent nausea and vomiting, followed by onset of profuse watery diarrhea beginning approximately 5 days ago before coming to the hospital. She reports vomiting more than 10 times daily and experiencing continuous diarrhea. Symptoms are associated with generalized weakness and inability to tolerate oral intake. She denies hematemesis or bloody stools. She also denies recent travel or known sick contacts. She endorses chills, but deepa fever. Additionally she notes mild shortness of breath. Denies chest pain, palpation. Patient was admitted for admitted for intractable nausea/vomiting. Nephrology has been consulted for management of metabolic alkalosis. 03/04/2025: Labs reviewed and patient examined at the bedside. On the day of admission (03/01), patient had alkalemia (ABG pH:7.47), Respiratory alkalosis (ABG pCO2:22), Metabolic acidosis (ABG HCO3:16), high Anion gap of 18. Based on winter's formula, expected pCO2 was 32 +/- 2, but actual pCO2 was 22 which is much lower than expected and confirms excessive respiratory alkalosis, not just compensation. Beta-hydroxybutyrate was elevated (5.4) and significant hypokalemia of 2.7. To summarize, patient likely had HAGMA due to starvation ketoacidosis caused by poor PO intake from prolonged vomiting/diarrhea and excessive respiratory alkalosis likely from hyperventilation from stress or pain from nausea/vomiting/diarrhea. As of today (03/04), Patient had normal anion gap of 10 and borderline low potassium (3.5), which means patient has NAGMA, which fits classical picture of diarrhea. However, the root cause of patient's symptoms needs to be further explored, as patient denied previous infections, toxic ingestions, or new abnormal symptoms, and CTAP only showed mass in uterus, which according to OBGYN, unlikely to be the primary cause of her symptom. 03/05/2025:Labs reviewed and patient examined at the bedside. Patient's Nausea and vomiting has improved, but diarrhea still continues. Colonoscopy is recommended for evaulation of diarrhea and possible biopsy. Recommend a dose of bicitra. 03/06/2025: Labs reviewed and patient examined at the bedside. Patient has ongoing fluctance of nausea, vomiting, and diarrhea. Patient noted her diarrhea is not improving. Colonoscopy has been delayed because stool culture needs to return first. Still exploring possible causes of her diarrhea. HCO3: 19.4. Recommend a dose of bicitra. 03/08/2025: Labs reviewed and patient examined at the bedside. Patient has been feeling much better today. no Nausea and vomiting. + diarrhea x2. Currently waiting for Stool giardia and norovirus is pending. Will continue to monitir. HCO3: 23.1 Review of Systems Review of Systems Narrative Review of Systems: CONSTITUTIONAL: Patient denies any fever, chills. HEENT: Denies any visual disturbances or hearing problems. CARDIOVASCULAR: Patient denies any chest pain, shortness of breath, swelling in the lower extremities. PULMONARY: Patient denies any shortness of breath, cough. GASTROINTESTINAL: Patient denies any abdominal pain, constipation, nausea, vomiting. + diarrhea. GENITOURINARY: Patient denies any urinary symptoms of burning or frequency or hematuria, denies any form in the urine. SKIN: Denies any rash. MUSCULOSKELETAL: Denies any muscular skeletal problems of joint pains. NEUROLOGICAL: Denies any neurological problems of strokes, seizures or confusion. Denies any memory problems. PSYCHIATRIC: Denies any depression or anxiety. LYMPHATICS : No lymphadenopathy Exam Vital Signs Temp Pulse Resp BP Pulse Ox O2 Del Method O2 Flow Rate 36.4 C 77 18 133/75 H 97 Room Air 2 03/08/25 12:03/08/25 12:03/08/25 12:03/08/25 12:03/08/25 12:03/08/25 12:03/08/25 00:00 Narrative Exam GENERAL APPEARANCE: Patient seems to be comfortable, adequately hydrated and nourished. HEENT: EOMI, PERRLA NECK: Neck supple, no JVD or bruit CARDIOVASCULAR: Heart regular, no murmurs LUNGS/CHEST: Chest clear to auscultation. No rales, rhonchi, wheezing ABDOMEN: Soft, nontender, nondistended. No masses. Normal bowel sounds. EXTREMITIES: No edema, clubbing or cyanosis. SKIN: Skin exam normal without any rashes MUSCULOSKELETAL: Musculoskeletal exam normal PSYCHIATRIC: Normal mood, affect LYMPHATICS: No lymphadenopathy noted NEUROLOGICAL : No neurological deficits Objective Labs 03/08/25 05:11 03/08/25 05:11 Labs: Laboratory Results - last 24 hr 03/08/25 05:11 WBC 5.8 RBC 3.50 L Hgb 10.0 L Hct 30.4 L MCV 87 MCH 28.6 MCHC 32.9 RDW Std Deviation 60.4 H Plt Count 255 D Neut % (Auto) 38 Lymph % (Auto) 37 [place] % (Auto) 18 H Eos % (Auto) 6 Baso % (Auto) 1 Neut # (Auto) 2.2 Lymph # (Auto) 2.1 [place] # (Auto) 1.0 H Eos # (Auto) 0.4 Baso # (Auto) 0.0 Immature Gran # (Auto) 0.01 H Absolute Nucleated RBC 0.00 Immature Gran % 0 Nucleated RBC % 0 Sodium 142 Potassium 3.6 Chloride 113 H Carbon Dioxide 20.6 Anion Gap 8 BUN < 5 L Creatinine 0.5 L Estim Creat Clear Calc 129.9 eGFR > 60 BUN/Creatinine Ratio 10 L Glucose 99 Calculated Osmolality 280 Calcium 8.6 Corrected Calcium 9.5 Phosphorus 3.3 Magnesium 1.9 Albumin 2.9 L ABG Interpretation ABG results: 03/01/25 02:05 ABG pH 7.47 H ABG pCO2 22 L ABG pO2 88 ABG HCO3 16 L ABG O2 Saturation 98 ABG Base Excess -6 L Assessment & Plan Assessment and plan (1) Pelvic mass in female: Status: Acute Additional Assessment & Plan Additional Plan: #Intractable Nausea/Vomiting/Diarrhea #Normal Anion Gap Metabolic Acidosis (NAGMA) #Electrolyte abnormality #Uterine mass #Stage I hypertension #Insulin-dependent diabetes #Hyperlipidemia #Hypothyroidism #Rheumatoid arthritis BUN/creatinine, electrolytes markedly improved. Renal graham stable for discharge.
--- NOTE | 2025-03-08 10:59 | ESDS_ITS ---
Planned Discharge Date 03/08/25 DS: Providers Provider Date of admission: 03/01/25 05:45 Primary care physician: Miah Coles MD Admitting Provider: Anne Hicks MD Attending Provider on Admission: Dewayne Bryant MD Consults: 03/01/25 05:45 Referral Registered Dietitian Stat Comment: 03/01/25 05:47 Consult to Gastroenterology Routine Comment: Intractable N/V/D Consulting Provider: Arnie Reardon Consult to Nephrology Routine Comment: Metabolic alkylosis Consulting Provider: Iona Hadley 03/01/25 06:49 Referral Registered Dietitian Routine Comment: 03/01/25 14:30 Consult to Gynecology Routine Comment: Consulting Provider: Benson Rubin 03/07/25 10:23 Referral Physical Therapy Urgent Comment: Physician Instructions: Attending Provider on DC: Amos Mariano DO Discharging Provider: Amos Mariano DO DS: Diagnosis Problem List Completed Was Problem List Reviewed/Reconciled?: Yes Hospital Course Hospital Course Hospital course: Patient is a 60-year-old female with past medical history significant for hypertension, hypothyroid, rheumatoid arthritis, insulin dependent diabetes presents to the ED with tractable nausea and vomiting. Patient stated she feels okay and is less nauseous at the time of admission, but has been having nausea and vomiting for the last 2-1/2 weeks vomiting about 10 times a day with dry heaving as well. Patient stated she can keep some water down but only minimal amounts, not able to tolerate food, vomits food shortly after ingestion, non bloody. Last full meal eaten/tolerated at previous hospitalization in January. Patient unable to take much medications due to vomiting. Zofran sometimes works. Patient had a PCP appointment at [facility] scheduled but was pushed back for GI specialist referral. Patient also endorsed loose and watery brown diarrhea, abdominal discomfort, chills, dizziness, felt syncopal in shower , shortness of breath on exertion. Patient denies dysuria, cough. She was then admitted for Intractable nausea/vomiting, mixed metabolic alkalosis and acidosis. Nausea and vomiting started improving but patient continued to have frequent loose bowel movements. She also had multiple electrolyte imbalances throughout the hospital stay which were repleted accordingly. She was also noted to have heterogenous uterine cyst/mass in abdominal imagigng, behavioral health technician was c onsulted who recommended outpatient workup. GI was consulted as patient did not have resolution of diarrhea, for possible need of colonoscopy. GI recommended obtaining stool studies before procedure. Stool studies including Giardia, salmonella, shigella, norovirus, culture were obtained. Most of which came back negative. But has improvement in her bowel movements, stool are more formed now and less frequent. At bedside this morning, patient states she is feeling well, denies any new complaints. Denies nausea, vomiting, had only 1 bowel movement today. Vitals are within normal limits. Discussed with GI recommended no need for colonoscopy with significant improvement. We will discharge patient home on oral cholestyramine and lactobacillus along with her home medications. Recommended to follow up with her PCP and GI within 1 to 2 weeks of discharge. Also recommended to discuss with her PCP regarding workup for her leg swelling. #Intractable nausea/vomiting #Diarrhea #Pitting Edema #Uterine mass #Mixed Acid Base Disorder #Hypercalcemia #Hypokalemia #Hypomagnesemia #Hypophosphatemia #Stage I hypertension #Insulin-dependent diabetes #Hyperlipidemia #Hypothyroidism #Rheumatoid arthritis Time Spent with Patient Time attestation: Total time spent providing and/or coordinating discharge services: 38 min Time spent: Greater than 30 minutes Exam Vital Signs Temp Pulse Resp BP Pulse Ox O2 Del Method O2 Flow Rate 97.0 F 85 20 125/64 96 Room Air 2 03/08/25 08:00 03/08/25 08:08 03/08/25 08:00 03/08/25 08:08 03/08/25 08:00 03/08/25 08:00 03/08/25 00:00 Narrative Exam General: Awake and alert in no acute distress. Appears comfortable HEENT: Normocephalic, atraumatic, mucous membranes moist. Pupils reactive to light. Heart: Regular rate and rhythm, normal S1 and S2, no murmurs. Lungs: Clear to auscultation bilaterally with no wheezing or crackles. Abdomen: Soft, mild tenderness over right lower quadrant, Bowel sound present Extremities: 2+ pitting edema bilaterally below the knees. 2+ radial and dorsalis pedis pulses bilaterally. Neurologic: Alert and oriented x3, no gross neurological deficit, and patient able to move all 4 extremities. Skin: Warm. Dry. No rash or ecchymoses. Discharge Plan Plan Patient Disposition: HOME (Self Care) Patient condition on transfer: Stable Care Plan Goals: - Take your cholestyramine every other day - Take your probiotics every day - Continue taking all other home medications as prescribed - Follow-up with PCP within 1-2 weeks of discharge - Follow up with your GI doctor within 1-2 weeks of discharge - If you do not have a PCP, you can follow-up at the [facility] - Return to ED if symptoms worsen Prescriptions/Referrals Prescriptions/Med Rec: New metoprolol succinate 25 mg capsule,sprinkle,ER 24hr 25 mg PO QDAY 30 Days Qty: 30 0RF Cholestyramine Light 4 gram powder 4 g PO Q OTHER DAY 30 Days Qty: 231 0RF Rx Instructions: administer w/meal; avoid other meds within 1hr before or 4-6hr after dose Lactobacillus acidoph-L. bifid 1 billion cell wafer 1 tab PO QDAY 30 Days Qty: 60 0RF Rx Instructions: administer (preferably) with milk Continued lovastatin 40 mg Tablet 40 mg PO QDAY insulin lispro 100 unit/mL insulin pen 1 sliding scale dose subcut USEASDIRECTD Qty: 15 0RF gabapentin 100 mg capsule 200 mg PO Q8H Patient Comments: has not started taking due to nausea/vomiting Enbrel SureClick 50 mg/mL (1 mL) pen injector 50 mg SUBCUT .Qfriday metformin 500 mg tablet 500 mg PO BIDWM Patient Comments: TAKE 1 TABLET BY MOUTH TWICE A DAY WITH MEALS levothyroxine 137 mcg tablet 137 mcg PO QAMAC Patient Comments: TAKE 1/2 TABLET BY MOUTH EVERY DAY IN THE MORNING ON EMPTY STOMACH amitriptyline 25 mg Tablet 25 mg PO HS 30 Days Qty: 30 0RF megestrol 20 mg Tablet 40 mg PO QDAY 30 Days Qty: 60 0RF promethazine 12.5 mg tablet 12.5 mg PO Q6H PRN (Reason: nausea and vomiting) 30 Days Qty: 30 0RF Rx Instructions: Take one tablet by mouth up to four times a day Discontinued hydrochlorothiazide 25 mg Tablet 25 mg PO QAM No Action (DME) blood-glucose meter [FreeStyle Lite Meter] Kit See Rx Instructions .Route Qty: 1 0RF Rx Instructions: As directed (DME) lancets [FreeStyle Lancets] 28 gauge misc See Rx Instructions .Route Qty: 100 0RF Rx Instructions: As directed (DME) FreeStyle Lite Strips Strip See Rx Instructions .Route Qty: 100 0RF Rx Instructions: As directed (DME) pen needle, diabetic [Ultra-Thin II Ins Pen [place]] 29 gauge x 1/2 needle See Rx Instructions .Route Qty: 100 0RF Rx Instructions: As directed (DME) lancets 28 gauge misc See Rx Instructions .Route Qty: 100 0RF Rx Instructions: As directed Referrals: Miah Coles MD [Primary Care Provider] Patient/Caregiver Discharge Instructions Education Materials: Gastroparesis, Do You Have Diabetes?, ED Diet for Vomiting or ... Print Language: [place] Stand Alone Forms: Stacie Award Info., Patient Portal Info Letter Discharge Order Discharge Orders: Discharge (Routine); Ordered 03/08/25 Ordered By: Nikko Salamanca Quality Discharge Quality Measures VTE prophylaxis
[2025-03-08 12:00] VITALS: BP 133/75; PULSE 77; PULSE 91; RESP 18; TEMP 36.4; O2SAT 97
--- NOTE | 2025-03-08 17:56 | PD.IMPROG ---
Documentation for date of: 03/08/25 Subjective Subjective Interval history: Late entry for the note no further diarrhea No nausea vomiting Okay to discharge the patient home to be followed by the PCP Exam Vital Signs Temp Pulse Resp BP Pulse Ox O2 Del Method O2 Flow Rate 97.6 F 77 18 133/75 H 97 Room Air 2 03/08/25 12:00 03/08/25 12:00 03/08/25 12:00 03/08/25 12:00 03/08/25 12:00 03/08/25 12:00 03/08/25 00:00 Objective Labs 03/08/25 05:11 03/08/25 05:11 Labs: Laboratory Results - last 24 hr 03/08/25 05:11 WBC 5.8 RBC 3.50 L Hgb 10.0 L Hct 30.4 L MCV 87 MCH 28.6 MCHC 32.9 RDW Std Deviation 60.4 H Plt Count 255 D Neut % (Auto) 38 Lymph % (Auto) 37 [place] % (Auto) 18 H Eos % (Auto) 6 Baso % (Auto) 1 Neut # (Auto) 2.2 Lymph # (Auto) 2.1 [place] # (Auto) 1.0 H Eos # (Auto) 0.4 Baso # (Auto) 0.0 Immature Gran # (Auto) 0.01 H Absolute Nucleated RBC 0.00 Immature Gran % 0 Nucleated RBC % 0 Sodium 142 Potassium 3.6 Chloride 113 H Carbon Dioxide 20.6 Anion Gap 8 BUN < 5 L Creatinine 0.5 L Estim Creat Clear Calc 129.9 eGFR > 60 BUN/Creatinine Ratio 10 L Glucose 99 Calculated Osmolality 280 Calcium 8.6 Corrected Calcium 9.5 Phosphorus 3.3 Magnesium 1.9 Albumin 2.9 L Impressions Impression: Resolved diarrhea most likely infectious enterocolitis versus viral gastroenteritis Nausea vomiting resolved most likely gastric motility disorder Okay to discharge patient home to be followed by the PCP ABG Interpretation ABG results: 03/01/25 02:05 ABG pH 7.47 H ABG pCO2 22 L ABG pO2 88 ABG HCO3 16 L ABG O2 Saturation 98 ABG Base Excess -6 L Assessment & Plan A&P Narrative Chronic persistent diarrhea etiology uncertain No evidence of any colitis on his CT scan imaging done on admission of the abdomen and pelvis Most of the stool studies are pending except culture and sensitivity is negative Suggestions Wait for the results of the stool studies to come back before scheduling invasive GI workup such as colonoscopy with biopsies if the diarrhea still persist Fecal calprotectin ANCA antibody CRP Hold off colonoscopy Will follow the patient Other medical problems include Essential hypertension Hypothyroidism Rheumatoid arthritis IDDM Thank you very much for the opportunity to participate in the care of this patient Time Spent With Patient Time: Total time spent is greater than 50% in coordination of care (as documented) at patient's floor/unit and/or counseling patient:
[2025-03-10 07:17] LABS: Giardia Result NOT DETECTED; Norovirus, EIA (Stool)* NOT DETECTED
[2025-03-10 07:18] LABS: Calprotectin, Stool* 23 mcg/g
[2025-03-13 06:26] LABS: ANCA Screen POSITIVE (NEGATIVE); Atypical P-ANCA Titer 1:20 titer (<1:20); Myeloperoxidase Ab <1.0 AI (<1.0); Proteinase-3 Ab <1.0 AI (<1.0)
== END 2025-03-08 13:58 | disposition home or self-care (01) | DRG 425 ==
LOC: SERX 05:17 → SERHOLD 05:54 → S3NX 06:33
PROVIDERS: Specialist; Student in an Organized Health Care Education/Training Program; Admitting Provider Student in an Organized Health Care Education/Training Program; Emergency Provider Emergency Medicine; PCP Family Medicine; Visit Provider Student in an Organized Health Care Education/Training Program
DX: E87.4 Mixed disorder of acid-base balance (principal); M06.9 Rheumatoid arthritis, unspecified; E03.9 Hypothyroidism, unspecified; I10 Essential (primary) hypertension; Z79.4 Long term (current) use of insulin; E11.9 Type 2 diabetes mellitus without complications; E83.52 Hypercalcemia; E87.6 Hypokalemia; E86.0 Dehydration; R19.00 Intra-abdominal and pelvic swelling, mass and lump, unspecified site; E83.42 Hypomagnesemia; E83.39 Other disorders of phosphorus metabolism; E78.5 Hyperlipidemia, unspecified; E86.1 Hypovolemia; E87.1 Hypo-osmolality and hyponatremia; D25.9 Leiomyoma of uterus, unspecified; F40.240 Claustrophobia; M79.89 Other specified soft tissue disorders; E87.8 Other disorders of electrolyte and fluid balance, not elsewhere classified; Z79.84 Long term (current) use of oral hypoglycemic drugs; Z79.890 Hormone replacement therapy; Z79.899 Other long term (current) drug therapy; Z98.42 Cataract extraction status, left eye
CPT/HCPCS: 36415; 36600; 71250; 74176; 76705; 76830; 76856; 80048; 80053; 80069; 80076; 80307; 80320; 81001; 82010; 82024; 82105; 82140; 82150; 82248; 82436; 82530; 82550; 82803; 83036; 83605; 83735; 83880; 83993; 84100; 84133; 84145; 84300; 84439; 84443; 84481; 84484; 84702; 85025; 85652; 86021; 86036; 86037; 86140; 86301; 86304; 87015; 87040; 87045; 87046; 87081; 87205; 87329; 87400; 87449; 87811; 87899; 93005; 93225; 93970; 96361; 96374; 96375; 97162; 99285; J1644; J1815; J1938; J2270; J2405; J2470; J3360; J3411; J3475; J3480; J7030; J7042; J7050; J7999; A9270; G0480